=== PATIENT | male | born 1970 | race Caucasian/White ===

== ENCOUNTER 2016-11-28 12:44 | Observation (INO) | payer OTHER ==
[~2016-11-28] VITALS: Ht 190.5 cm; Wt 145.2 kg
[~2016-11-28 12:44] MED LIST: AMX500 PO; ASPI81TA28 PO; BENZ1CAP90 PO; FRS/40 PO; LPR25 PO; SPIR25TA PO; TAMS0.4C38 PO
[2016-11-28] MEDS ORDERED: METO25TA56 PO (13:38)
[2016-11-28] MEDS ORDERED: FUROSEMIDE 40 MG/4 ML VIAL IV STA (13:56)
[2016-11-28 14:17] LABS: BASO % 0.6 %; BASO ABS # 0.04 K/uL (0-0.2); COMPLETE YES; EOS % 3.1 %; HEMATOCRIT 45.4 % (42-52); IG% 0.2 %; LYMPH % 17.6 %; LYMPH ABS # 1.09 K/uL (1.2-3.4); MEAN CELL VOLUME 87.1 fL (80-100); MEAN CORPUSCULAR HEMOGLOBIN 30.1 pg (25-34); MEAN CORPUSCULAR HGB CONC 34.6 g/dl (32-36); MEAN PLATELET VOLUME 11.9 fL (7.4-10.4); MONO % 10.8 %; NEUT % 67.7 %; PLATELET COUNT 187 K/uL (130-400); RED BLOOD COUNT 5.21 M/uL (4.7-6.1); WHITE BLOOD COUNT 6.19 K/uL (4.8-10.8)
[2016-11-28 14:25] LABS: URINE APPEARANCE CLEAR (CLEAR); URINE BILIRUBIN NEG (NEG); URINE COLOR DK YELLOW; URINE NITRITE NEG (NEG); URINE SPECIFIC GRAVITY 1.026 (1.000-1.030); UROBILINOGEN POS (NEG); ZZUR CULT IF INDIC CLEAN CATCH NO
[2016-11-28 14:26] LABS: MANUAL MICROSCOPIC REQUIRED? NO; REVIEW REQ? NO
[2016-11-28 14:29] LABS: PARTIAL THROMBOPLASTIN RATIO 1.1; PROTHROMBIN TIME (PATIENT) 10.7 SECONDS (9.0-12.0)
--- NOTE | 2016-11-28 14:31 | DIAGNOSTIC IMAGING REPORT ---
CHEST ONE VIEW PORTABLE CLINICAL HISTORY: 46 years-old Male presenting with EVALUATE RESPIRATORY DISTRESS.DYSPNEA. TECHNIQUE: Portable upright AP view of the chest was obtained. COMPARISON: 04/06/2016. FINDINGS: Median sternotomy wires intact. Left-sided implanted cardiac defibrillator with lead to the right ventricular apex.. Cardiac silhouette enlargement as on prior exam. Prominence of the main pulmonary artery. No convincing evidence of a focal infiltrate. No large effusion or pneumothorax. Osseous structures and upper abdomen grossly normal. IMPRESSION: 1. Cardiomegaly. No mirza pulmonary edema. No convincing evidence of acute cardiopulmonary disease. Electronically signed by: Fareed Smart M.D. 11/28/2016 2:30 PM Dictated Date/Time: 11/28/2016 2:28 PM
[2016-11-28 14:35] LABS: BUN/CREATININE RATIO 14.7 (10-20); CALCIUM 8.9 mg/dl (8.5-10.1); CREATININE 1.3 mg/dl (0.60-1.40); POTASSIUM 4.1 mmol/L (3.5-5.1)
[2016-11-28 14:44] LABS: ALB/GLOB RATIO 1.1 (0.9-2)
--- NOTE | 2016-11-28 16:44 | EMERGENCY ROOM VISIT NOTE ---
History First contact with patient: 13:40 Chief Complaint: CARDIAC ASSESSMENT Stated Complaint: CHF History of Present Illness The patient is a 46 year old male, history of complete heart block, hypertrophic cardiomyopathy, history of myocardial infarction, status post ventricular pacer/ICD with EKG with paced rhythm, who presents to the Emergency Room with complaints of shortness of breath and fluid retention over the past 3 days. The patient is concerned that he is in CHF again. He was last admitted last March 2016 for similar symptoms. The patient usually takes Lasix 80 mg twice daily, and admits to increasing his Lasix dosing over the past 48 hours to 200 mg daily. This has not helped his peripheral edema. He is also restricted fluid intake for the past few days. He denies any current chest pain or pressure. The patient does report that he had right lower chest discomfort 3 days ago. He is concern for a blood clot, although he has never had a DVT/PE in the past. He does have a family history of DVTs. The patient currently rates his overall discomfort a 10 out of 10. Review of Systems HEENT: Denies dizziness, visual problems, hearing loss, tinnitus. Denies difficulty swallowing or oral lesions. PULMONARY: See history of present illness. CARDIOVASCULAR: See history of present illness. GASTROINTESTINAL: Denies diarrhea, constipation, nausea, vomiting, or abdominal pain. GENITOURINARY: Denies dysuria, frequency, urgency or nocturia. NEUROLOGIC: Denies history of epilepsy, CVA, TIA or chronic headaches. MUSCULOSKELETAL: Denies history of joint tenderness/swelling. SKIN: Denies rashes or lesions. PSYCHIATRIC: Denies history of depression or mental illness. ENDOCRINE: Denies history of diabetes or thyroid disorders. Past Medical/Surgical History Medical Problems: (1) Chest pain (2) Closed fracture of cervical spine (3) Dyslipidemia (4) Hypertrophic cardiomyopathy (5) Hypoxia (6) Implantation of internal cardiac defibrillator (7) Myocardial infarction (8) Pleuritis (9) s p insertion AICD (10) s/p appendectomy (11) Sleep apnea Family History Cancer 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 Heart disease Social History Smoking Status: Former Smoker Alcohol Use: occasionally Drug Use: none Marital Status: Housing Status: lives with family Occupation Status: employed Current/Historical Medications Scheduled Aspirin (Aspirin Ec), 81 MG PO DAILY Furosemide (Lasix), 80 MG PO BID Metoprolol Tartrate (Lopressor) (Lopressor), 12.5 MG PO BID Spironolactone (Aldactone), 25 MG PO DAILY Physical Exam Vital Signs Date Time Temp Pulse Resp B/P (MAP) Pulse Ox O2 Delivery O2 Flow Rate FiO2 11/28/16 14:32 96 Room Air 11/28/16 14:32 96 Room Air 11/28/16 14:31 73 11/28/16 13:00 37.0 78 24 136/84 97 Room Air Physical Exam CONSTITUTIONAL: Morbidly obese male, alert and oriented X 3 with positive affect. The patient does not appear in any acute respiratory distress. HEENT: Normocephalic, atraumatic. Pupils equal, round and reactive. Ears and nares are clear. No scleral icterus or conjunctival injection/pallor. NECK: Full active range of motion without discomfort. No obvious JVD noted, however this is very difficult because of body habitus. No cardiac bruits on auscultation. RESPIRATORY: Clear to auscultation bilaterally with no wheezing, crackles, rhonchi or stridor. CARDIOVASCULAR: Regular rate and rhythm with a grade 2 systolic ejection murmur. No obvious rubs or gallops. GASTROINTESTINAL: Bowel sounds present in all quadrants. Abdomen is protuberant but soft and nontender to palpation. No fluid wave or ballottement. MUSCULOSKELETAL: Full range of motion of all joints without discomfort. The patient has 2+ pretibial pitting edema bilaterally. No skin changes noted. INTEGUMENTARY: No rash or other significant dermatologic conditions noted. HEMATOLOGIC: No ecchymosis or petechiae. NEUROLOGIC: No focal neurologic deficits noted. Medical Decision & Procedures ER Provider Diagnostic Interpretation: My interpretation of an ECG shows a paced ventricular rhythm of 71 bpm. My interpretation of a portable chest x-ray does not show any consolidations or failure pattern. Radiologist report is as follows: CHEST ONE VIEW PORTABLE CLINICAL HISTORY: 46 years-old Male presenting with EVALUATE RESPIRATORY DISTRESS.DYSPNEA. TECHNIQUE: Portable upright AP view of the chest was obtained. COMPARISON: 04/06/2016. FINDINGS: Median sternotomy wires intact. Left-sided implanted cardiac defibrillator with lead to the right ventricular apex.. Cardiac silhouette enlargement as on prior exam. Prominence of the main pulmonary artery. No convincing evidence of a focal infiltrate. No large effusion or pneumothorax. Osseous structures and upper abdomen grossly normal. IMPRESSION: 1. Cardiomegaly. No mirza pulmonary edema. No convincing evidence of acute cardiopulmonary disease. Laboratory Results 11/28/16 14:05 Red Blood Count 5.21, Mean Corpuscular Volume 87.1, Mean Corpuscular Hemoglobin 30.1, Mean Corpuscular Hemoglobin Concent 34.6, Mean Platelet Volume 11.9, Neutrophils (%) (Auto) 67.7, Lymphocytes (%) (Auto) 17.6, Monocytes (%) (Auto) 10.8, Eosinophils (%) (Auto) 3.1, Basophils (%) (Auto) 0.6, Neutrophils # (Auto ) 4.19, Lymphocytes # (Auto) 1.09, Monocytes # (Auto) 0.67, Eosinophils # (Auto ) 0.19, Basophils # (Auto) 0.04 11/28/16 14:05 Test 11/28/16 13:15 11/28/16 14:05 Urine Color DK YELLOW Urine Appearance CLEAR (CLEAR) Urine pH 6.0 (4.5-7.5) Urine Specific [place] 1.026 (1.000-1.030) Urine Protein 1+ (NEG) Urine Glucose (UA) NEG (NEG) Urine Ketones TRACE (NEG) Urine Occult Blood TRACE (NEG) Urine Nitrite NEG (NEG) Urine Bilirubin NEG (NEG) Urine Urobilinogen POS (NEG) Urine Leukocyte Esterase NEG (NEG) Urine WBC (Auto) 1-5 /hpf (0-5) Urine RBC (Auto) 5-10 /hpf (0-4) Urine Hyaline Casts (Auto) 1-5 /lpf (0-5) Urine Epithelial Cells (Auto) 10-20 /lpf (0-5) Urine Bacteria (Auto) NEG (NEG) White Blood Count 6.19 K/uL (4.8-10.8) Red Blood Count 5.21 M/uL (4.7-6.1) Hemoglobin 15.7 g/dL (14.0-18.0) Hematocrit 45.4 % (42-52) Mean Corpuscular Volume 87.1 fL (80-100) Mean Corpuscular Hemoglobin 30.1 pg (25-34) Mean Corpuscular Hemoglobin Concent 34.6 g/dl (32-36) Platelet Count 187 K/uL (130-400) Mean Platelet Volume 11.9 fL (7.4-10.4) Neutrophils (%) (Auto) 67.7 % Lymphocytes (%) (Auto) 17.6 % Monocytes (%) (Auto) 10.8 % Eosinophils (%) (Auto) 3.1 % Basophils (%) (Auto) 0.6 % Neutrophils # (Auto) 4.19 K/uL (1.4-6.5) Lymphocytes # (Auto) 1.09 K/uL (1.2-3.4) Monocytes # (Auto) 0.67 K/uL (0.11-0.59) Eosinophils # (Auto) 0.19 K/uL (0-0.5) Basophils # (Auto) 0.04 K/uL (0-0.2) RDW Standard Deviation 46.2 fL (36.4-46.3) RDW Coefficient of Variation 14.5 % (11.5-14.5) Immature Granulocyte % (Auto) 0.2 % Immature Granulocyte # (Auto) 0.01 K/uL (0.00-0.02) Prothrombin Time 10.7 SECONDS (9.0-12.0) Prothromb Time International Ratio 1.0 (0.9-1.1) Activated Partial Thromboplast Time 28.5 SECONDS (21.0-31.0) Partial Thromboplastin Ratio 1.1 D-Dimer 310 ug/L FEU (0-500) Anion Gap 6.0 mmol/L (3-11) Est Creatinine Clear Calc Drug Dose 112.6 ml/min Estimated GFR () 76.4 Estimated GFR (Non- 65.9 BUN/Creatinine Ratio 14.7 (10-20) Calcium Level 8.9 mg/dl (8.5-10.1) Total Bilirubin 0.6 mg/dl (0.2-1) Aspartate Amino Transf (AST/SGOT) 42 U/L (15-37) Alanine Aminotransferase (ALT/SGPT) 48 U/L (12-78) Alkaline Phosphatase 69 U/L (45-117) Total Creatine Kinase 143 U/L (39-308) Troponin I 0.058 ng/ml (0-0.045) Pro-B-Type Natriuretic Peptide 1190 pg/ml (0-450) Total Protein 7.6 gm/dl (6.4-8.2) Albumin 4.0 gm/dl (3.4-5.0) Globulin 3.6 gm/dl (2.5-4.0) Albumin/Globulin Ratio 1.1 (0.9-2) The above labs were reviewed. BNP is elevated at 1190, and troponin is also elevated at 0.058. D-dimer is normal. Remaining labs were reviewed. Medications Administered Medications (Trade) Dose Ordered Sig/Ida Route Start Time Stop Time Status Last Admin Dose Admin Furosemide (Lasix Inj) 40 mg NOW STAT IV 11/28/16 13:56 11/28/16 14:01 DC 11/28/16 13:56 40 MG ED Course Patient history and physical exam were performed. Nurse's notes were reviewed. Vital signs were reviewed. The patient is normotensive and afebrile. O2 saturation is 97% on room air with a respiratory rate of 24. Pulse rate is normal. The patient gives a history and has peripheral edema, concerning for CHF. IV access was established, and labs were drawn. The patient was administered Lasix 40 mg IVP. An ECG showed a paced ventricular rhythm, and a portable chest x-ray does not show any obvious failure pattern. Cardiomegaly is noted. Review of labs shows a mildly elevated troponin and BNP. D-dimer are normal. The patient reported no relief of his back pain with Lasix administration, and was requesting additional medicine for pain. The case was discussed further with Dr. Ramos, ED attending physician who suggested consultation with the hospitalist service. I then spoke with the [facility] hospitalist service who came to the emergency department for further evaluation. Please see their dictation for further disposition and final treatment. Medical Decision Patient presents to the emergency department with complaint of fluid retention, right lower chest pain and shortness of breath for the past 3 days. The patient has had no relief of peripheral edema with higher doses of Lasix. 1 days workup, the patient does have an elevated troponin and BNP. These are chronically elevated for the patient. However, given the patient's chronic cardiac history, I do feel that cardiac reevaluation and serial enzymes are warranted. I do not suspect infectious etiology. Medication Reconcilliation Current Medication List: was personally reviewed by me Blood Pressure Screening Patient's blood pressure: Normal blood pressure Impression Primary Impression: Shortness of breath Additional Impressions: Right-sided chest pain History of CHF (congestive heart failure) History of heart disease Departure Information Referrals Isaías Hogan MD (PCP) Patient Instructions My [facility] Problem Qualifiers
[2016-11-28] MEDS ORDERED: ALUMINUM/MAGNESIUM/SIMETH (MAALOX MAX) 30 ML UDC PO PRN (17:15)
[2016-11-28] MEDS ORDERED: ONDANSETRON INJ 2 MG/ML 2 ML VIAL IV PRN (17:15)
[2016-11-28] MEDS ORDERED: ACETAMINOPHEN 325 MG TAB PO PRN (17:15)
[2016-11-28] MEDS ORDERED: MAGNESIUM HYDROXIDE SUSP 30 ML UDC PO PRN (17:15)
--- NOTE | 2016-11-28 17:39 | History and Physical ---
History & Physical Date & Time of Service: Nov 28, 2016 at 17:19 Chief Complaint: CHF Primary Care Physician: Alfred Davis M.D. History of Present Illness Source: patient, clinic records, hospital records Patient is a pleasant 46 y/o male, with PMHx of complete heart block, hypertrophic cardiomyopathy, h/o NH, s/p ICD/pacemaker, MEENU, and HTN, who presented to the ED because of persistent SOB at rest and with exertion over the past few days. Patient normally takes 80 mg Lasix BID, but increased his Lasix to 100 mg BID for the last three days. He admits to lower extremity edema , but states it has significantly improvement since increasing Lasix. Per patient, goal weight is 195-302; he is currently ~330. Patient also admits to lower lumbar pain. He admits to discomfort with other CHF exacerbations. He denies any injuries. He denies radicular symptoms or bowel/bladder incontinence. Patient denies any fever, chills, sweats, lightheadedness, dizziness, vision changes, CP, palpitations, wheezing, cough, abdominal pain, nausea, vomiting, diarrhea, urinary symptoms, melena, numbness/tingling, weakness, anxiety/depression, active bleeding, or new skin discoloration/ changes. Past Medical/Surgical History Medical Problems: HTN Hypertrophic cardiomyopathy Myocardial infarction Complete heart block MEENU Surgical history: Appendectomy Open heart surgery s/p ICD and pacemaker Family History Cancer 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 Heart disease Social History Smoking Status: Former Smoker Alcohol Use: occasionally Drug Use: none Marital Status: Housing status: lives with family Occupational Status: employed Immunizations History of Influenza Vaccine: Yes History of Tetanus Vaccine?: Yes History of Pneumococcal: Yes History of Hepatitis B Vaccine: No Multi-Drug Resistant Organisms History of MDRO: No Allergies Coded Allergies: Erythromycin (Unverified Allergy, Mild, UNSURE, 11/28/16) Home Medications Scheduled Aspirin (Aspirin Ec), 81 MG PO DAILY Furosemide (Lasix), 80 MG PO BID Metoprolol Tartrate (Lopressor) (Lopressor), 12.5 MG PO BID Spironolactone (Aldactone), 25 MG PO DAILY Physical Exam Vital Signs Date Time Temp Pulse Resp B/P (MAP) Pulse Ox O2 Delivery O2 Flow Rate FiO2 11/28/16 14:32 96 Room Air 11/28/16 14:32 96 Room Air 11/28/16 14:31 73 11/28/16 13:00 37.0 78 24 136/84 97 Room Air General Appearance: no apparent distress, + obese Head: normocephalic, atraumatic Eyes: normal inspection, PERRL ENT: hearing grossly normal Respiratory/Chest: lungs clear, no respiratory distress, no accessory muscle use, + pertinent finding (open heart scar noted to central chest- healed ) Cardiovascular: regular rate, rhythm Abdomen/GI: normal bowel sounds, non tender, no organomegaly Back: normal inspection, no CVA tenderness, no muscle spasm, normal range of motion Extremities/Musculoskelatal: no calf tenderness, + swelling (+1 pitting edema of bilateral lower extremities ) Neurologic/Psych: alert, normal mood/affect, oriented x 3 Skin: normal color, warm/dry, no rash Diagnostics Laboratory Results Results Past 24 Hours Test 11/28/16 13:15 11/28/16 14:05 Range/Units Urine Color DK YELLOW Urine Appearance CLEAR CLEAR Urine pH 6.0 4.5-7.5 Urine Specific [place] 1.026 1.000-1.030 Urine Protein 1+ NEG Urine Glucose (UA) NEG NEG Urine Ketones TRACE NEG Urine Occult Blood TRACE NEG Urine Nitrite NEG NEG Urine Bilirubin NEG NEG Urine Urobilinogen POS NEG Urine Leukocyte Esterase NEG NEG Urine WBC (Auto) 1-5 0-5 /hpf Urine RBC (Auto) 5-10 0-4 /hpf Urine Hyaline Casts (Auto) 1-5 0-5 /lpf Urine Epithelial Cells (Auto) 10-20 0-5 /lpf Urine Bacteria (Auto) NEG NEG White Blood Count 6.19 4.8-10.8 K/uL Red Blood Count 5.21 4.7-6.1 M/uL Hemoglobin 15.7 14.0-18.0 g/dL Hematocrit 45.4 42-52 % Mean Corpuscular Volume 87.1 80-100 fL Mean Corpuscular Hemoglobin 30.1 25-34 pg Mean Corpuscular Hemoglobin Concent 34.6 32-36 g/dl Platelet Count 187 130-400 K/uL Mean Platelet Volume 11.9 7.4-10.4 fL Neutrophils (%) (Auto) 67.7 % Lymphocytes (%) (Auto) 17.6 % Monocytes (%) (Auto) 10.8 % Eosinophils (%) (Auto) 3.1 % Basophils (%) (Auto) 0.6 % Neutrophils # (Auto) 4.19 1.4-6.5 K/uL Lymphocytes # (Auto) 1.09 1.2-3.4 K/uL Monocytes # (Auto) 0.67 0.11-0.59 K/uL Eosinophils # (Auto) 0.19 0-0.5 K/uL Basophils # (Auto) 0.04 0-0.2 K/uL RDW Standard Deviation 46.2 36.4-46.3 fL RDW Coefficient of Variation 14.5 11.5-14.5 % Immature Granulocyte % (Auto) 0.2 % Immature Granulocyte # (Auto) 0.01 0.00-0.02 K/uL Prothrombin Time 10.7 9.0-12.0 SECONDS Prothromb Time International Ratio 1.0 0.9-1.1 Activated Partial Thromboplast Time 28.5 21.0-31.0 SECONDS Partial Thromboplastin Ratio 1.1 D-Dimer 310 0-500 ug/L FEU Sodium Level 143 136-145 mmol/L Potassium Level 4.1 3.5-5.1 mmol/L Chloride Level 109 98-107 mmol/L Carbon Dioxide Level 28 21-32 mmol/L Anion Gap 6.0 3-11 mmol/L Blood Urea Nitrogen 19 7-18 mg/dl Creatinine 1.30 0.60-1.40 mg/dl Est Creatinine Clear Calc Drug Dose 112.6 ml/min Estimated GFR () 76.4 Estimated GFR (Non- 65.9 BUN/Creatinine Ratio 14.7 10-20 Random Glucose 103 70-99 mg/dl Calcium Level 8.9 8.5-10.1 mg/dl Total Bilirubin 0.6 0.2-1 mg/dl Aspartate Amino Transf (AST/SGOT) 42 15-37 U/L Alanine Aminotransferase (ALT/SGPT) 48 12-78 U/L Alkaline Phosphatase 69 45-117 U/L Total Creatine Kinase 143 39-308 U/L Troponin I 0.058 0-0.045 ng/ml Pro-B-Type Natriuretic Peptide 1190 0-450 pg/ml Total Protein 7.6 6.4-8.2 gm/dl Albumin 4.0 3.4-5.0 gm/dl Globulin 3.6 2.5-4.0 gm/dl Albumin/Globulin Ratio 1.1 0.9-2 Diagnostic Radiology CHEST ONE VIEW PORTABLE CLINICAL HISTORY: 46 years-old Male presenting with EVALUATE RESPIRATORY DISTRESS.DYSPNEA. TECHNIQUE: Portable upright AP view of the chest was obtained. COMPARISON: 04/06/2016. FINDINGS: Median sternotomy wires intact. Left-sided implanted cardiac defibrillator with lead to the right ventricular apex.. Cardiac silhouette enlargement as on prior exam. Prominence of the main pulmonary artery. No convincing evidence of a focal infiltrate. No large effusion or pneumothorax. Osseous structures and upper abdomen grossly normal. IMPRESSION: 1. Cardiomegaly. No mirza pulmonary edema. No convincing evidence of acute cardiopulmonary disease. Electronically signed by: Fareed Smart M.D. 11/28/2016 2:30 PM Dictated Date/Time: 11/28/2016 2:28 PM The status of this report is Signed. Draft = Not yet reviewed or approved by Radiologist. Signed = Reviewed and approved by Radiologist. <AttendingPhy></AttendingPhy> <FamilyPhy>Isaías Hogan MD</FamilyPhy > <PrimaryPhy>Isaías Hogan MD</PrimaryPhy> <UnitNumber>[id number]</ UnitNumber> < EKG JULISSA MARIN ID:[id number] 28-NOV-2016 13:16:09 [facility] Sinus rhythm with Ventricular-paced rhythm Abnormal ECG When compared with ECG of 06-APR-2016 07:32, No significant change Confirmed by GRETTA JONAS ([id number]) on 11/28/2016 4:25:29 PM 25mm/s 10mm/mV 150Hz 8.0 SP2 12SL 241 HD IVAN: 12 Referred by: ER Confirmed By: GRETTA Palacios. rate 71 BPM DE interval * ms QRS duration 224 ms QT/QTc 522/567 ms P-R-T axes -5 -78 96 1970 (46 yr) Male 1lb Room: Loc:15 Dietetic Technician: SAMMI Westbrook ind: Impression Assessment and Plan Patient is a pleasant 46 y/o male, with PMHx of complete heart block, hypertrophic cardiomyopathy, h/o NH, s/p ICD/pacemaker, MEENU, and HTN, who presented to the ED because of persistent SOB at rest and with exertion over the past few days. Acute on chronic CHF exacerbation, hypertrophic cardiomyopathy, h/o NH, s/p ICD/ pacemaker- follows w/ Dr. Hogan: - Admit to tele for cardiac monitoring - Trend cardiac enzymes- initial trop 0.058- chronically elevated - O2 protocol - IV Lasix 40 mg x1 given in ED; hold PO, start IV Lasix 40 mg BID and await cardiology input - CXR- no acute cardiopulmonary findings - No acute EKG changes - D-dimer- negative - Continue Aldactone 25 mg daily, Lopressor 12.5 mg BID, ASA 81 mg daily - Consult cardiology appreciate recommendations Lumbar pain/CVA tenderness: - Percocet PRN - Obtain renal US to r/o stone/obstruction/hydronephrosis - UA MEENU: CPAP DVT Prophylaxis: Lovenox Code Status: LEVEL I, FULL Dispo: From home- no discharge needs anticipated I personally interviewed and examined the patient I discussed the above plan with Miss Unique Angela I agree with her Hx and PE 46 years old man with PMHx of HOCM and diastolic failure, MEENU on CPAP, morbid obesity and complete heart block s/p AICD presented to ED with gradual worsening SOB and leg swelling despite of self increasing his lasix to 200mg daily . ROS/PMHx: as HPI FHx/SHx/labs/meds reviewed as needed PE: morbid obese, not in acute distress LUNGs: normal exam, no wheezing/R Heart: s1/s2 normal, no G/R/ , positive soft systolic M ABD: soft, ND, N tender Ext: B/L LE no edema or swelling Neuro: pleasant,AAOX3, EOMI, moves all ext, CN 2-12 intact Assessment: Acute Diastolic CHF exacerbation HOCM MEENU on CPAP morbid obesity complete heart block s/p AICD Plan: admit to telemetry lasix IV consult verifier operator I/O Start CPAP at 17MMHg Echo 03/2016: * -- Conclusions -- * LVEF 55%. * Severe anteroseptal and apical hypokinesis. * There is severe asymmetric septal left ventricular hypertrophy. * Compared to study 01/17/2016, the septal hypertrophy appears more severe. Level of Care Telemetry Resuscitation Status FULL RESUSCITATION VTE Prophylaxis VTE Risk Assessment Done? Y/N: Yes Risk Level: Moderate Given or contraindicated: Enoxaparin (Lovenox)SQ, T.E.D. Stockings, SCD's
[2016-11-28] MEDS ORDERED: POLYETHYLENE (MIRALAX) 17 GM PACK PO PRN (18:15)
--- NOTE | 2016-11-28 18:26 | DIAGNOSTIC IMAGING REPORT ---
(RENAL)RETROPERITON COMP CLINICAL HISTORY: 46 years-old Male presenting with bilateral CVA tenderness . TECHNIQUE: Real-time grayscale and limited color Doppler ultrasound imaging of the kidneys and bladder was performed. COMPARISON: None. FINDINGS: Right kidney: Normal echogenicity. Right kidney measures 13.4 cm. No hydronephrosis. No convincing evidence of calculus or mass. Normal perfusion. Left kidney: Normal echogenicity. Left kidney measures 14.0 cm. No hydronephrosis. No convincing evidence of calculus or mass. Normal perfusion. Bladder: No bladder wall thickening. Bilateral ureteral jets present. Other: None. IMPRESSION: 1. Normal renal ultrasound. No obstruction. Electronically signed by: Fareed Smart M.D. 11/28/2016 6:25 PM Dictated Date/Time: 11/28/2016 6:23 PM
[2016-11-28 18:36] VITALS: BP 140/85; PULSE 74; TEMP 36.8; O2SAT 96; Ht 190.5 cm; Wt 145.2 kg
[2016-11-28] MEDS ORDERED: IV FLUIDS COMPLETED PRN (18:45)
[2016-11-28] MEDS: OXYCODONE/ACETAMINOPHEN 5-325 TAB PO PRN (19:34)
[2016-11-28 20:00] VITALS: BP 129/81; PULSE 70; TEMP 36.5; O2SAT 95
[2016-11-28] MEDS: ENOXAPARIN 40 MG/0.4 ML SYR SC SCH (20:48)
[2016-11-28] MEDS: METOPROLOL TARTRATE 25 MG TAB PO SCH (20:48)
[2016-11-28] MEDS: FUROSEMIDE INJ 40 MG in SYRINGE 0 ML IV SCH (20:48)
[2016-11-28 23:57] VITALS: BP 117/86; PULSE 75; TEMP 36.6; O2SAT 98
[2016-11-29] VITALS (8 sets, daily range): BP systolic 97–147; BP diastolic 63–93; PULSE 69–73; TEMP 36.6–36.9; O2SAT 94–96
[2016-11-29] MEDS: OXYCODONE/ACETAMINOPHEN 5-325 TAB PO PRN ×4 (01:01→19:23)
--- NOTE | 2016-11-29 07:29 | Cardiology Consultation ---
Cardiology Consultation Date of Consultation: Nov 29, 2016. Requesting Physician: Dr. Kathleen Pittman Attending Physician: Dr. Kathleen Pittman Reason for Consultation: CHF Pt evaluation today including: conversation w/ patient, physical exam, chart review, lab review, review of studies, review of inpatient medication list History of Present Illness Mr. Connolly is a 46-year-old male with a history significant for hypertrophic cardiomyopathy s/p myomectomy, mitral regurgitation secondary to JASON of mitral valve s/p mitral valve repair, single-chamber ICD for primary prevention, dyslipidemia, hypertension, and sleep apnea (not currently on CPAP). He has had the following studies/procedures: 1. Cardiac catheterization 1999 in 2011 without significant CAD. 2. ICD 2006 at [facility] [place]: [employer] single chamber ICD for primary prevention. 3. Echo 06/29/2015: Normal LV systolic function. EF 55-60%. Inferior base appears hypokinetic to akinetic. Severe asymmetric hypertrophy of anterior septum and base to mid septum, measuring up to 3.3 cm. Mild left atrial dilation. Jason of chordal apparatus. Maximum LVOT gradient at rest [address] chest 06/29/2015: Severe asymmetric hypertrophy of interventricular septum measuring up to 4.1 cm. 5. Echo 06/30/2015: Limited study. Peak gradient 6.9 mmHg, increasing to 10.5 with Valsalva. 6. Cardiac catheterization 06/30/2015: No significant CAD. Normal PCWP (6). No pulmonary hypertension; 10/6 with a mean of 7. LVEDP 22, moderately elevated. LV intracavitary gradient was 5-8mmHg within the mid to distal/apical LV. This was not present near the LVOT. Post PVC beat gradient increased to 23 mmHg. EF 52%. 8. Septal myectomy and mitral valve repair with an 8 mm Danitza stitch on 2015 at [facility] [place] with Dr. Kelly. 9. Echo 01/17/2016: Normal to reduced LV size with hyperdynamic systolic function, EF 70%. Severe asymmetric hypertrophy of the septum. The basal septum now absent (s/p myomectomy). Mildly dilated left atrium. Maximum LVOT gradient at rest is 25 mmHg. He was last seen in the office on 03/02/2016. He then canceled are no showed for the next 3 scheduled appointments. In July of 2016, several phone calls were made to try to schedule an appointment however he had been out of town and was unable to make any appointments but planned on doing so when he returned home. He returned home from [place] approximately 1 week ago. He states that he felt well when he returns but soon developed shortness of breath, edema, and weight gain. He noticed orthopnea, PND even while on CPAP, and a nonproductive cough. He also reports dyspnea with exertion. He has not been weighing himself on a daily basis but the last time he weigh himself he was approximately 305 lb and this week he was in the 320s. He had been taking Lasix 80 mg twice daily and states that he did not missed any doses. He took an additional 40 mg twice daily for total of 120 mg twice daily for 2 days. He did not improve symptomatically but he does believe that the symptoms leveled off and stop progressively worsening. Because he did not feel any better however, he came to the hospital for further evaluation. While here, he was placed on Lasix 40 mg twice daily with an additional 40 mg once intravenously and feels much better, but not yet back to baseline. Despite traveling, he states that he has been compliant with a low-sodium diet. He denies chest pain, syncope, near-syncope, palpitations, or bleeding such as melena, hematochezia, or hematuria. He has not been exercising but is much more active following his septal myectomy than he was prior and overall felt much better. Review of systems: As above in review of systems otherwise negative/ unremarkable. Past Medical/Surgical History 1. Chest pain (R07.9) 2. Complete heart block (I44.2) 3. Dyslipidemia (E78.5) 4. Dyspnea on exertion (R06.09) 5. H/O mitral valve repair (Z98.890) 6. Hypertension (I10) 7. ICD (implantable cardioverter-defibrillator), single, in situ (Z95.810) 8. Lightheadedness (R42) 9. Hpertrophic cardiomyopathy with obstruction 10. Sleep apnea in adult (G47.33) 11. Septal myectomy Family History Cancer 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 Heart disease No known premature CAD. No known hypertrophic cardiomyopathy or sudden cardiac . His father was reportedly murdered in his 20s. Social History Former smoker. Rare alcohol. No drugs. . 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 Two biologic children, son (Timoteo) and daughter, along with a stepson. He is unaccompanied. Review of Systems Respiratory: + cough All Other Systems: Reviewed and Negative Allergies Coded Allergies: Erythromycin (Unverified Allergy, Mild, UNSURE, 11/28/16) Medications Current Inpatient Medications Medications (Trade) Dose Ordered Sig/Ida Route Start Time Stop Time Status Last Admin Dose Admin Enoxaparin Sodium (Lovenox Inj) 40 mg HS SC 11/28/16 21:00 12/28/16 20:59 11/28/16 20:48 40 MG Acetaminophen (Tylenol Tab) 650 mg Q4H PRN PO 11/28/16 17:15 12/28/16 17:14 Al Hydrox/Mg Hydrox/Simethicone (Maalox Max Susp) 15 ml Q4H PRN PO 11/28/16 17:15 12/28/16 17:14 Magnesium Hydroxide (Milk Of Magnesia Susp) 30 ml Q12H PRN PO 11/28/16 17:15 12/28/16 17:14 Ondansetron HCl (Zofran Inj) 4 mg Q6H PRN IV 11/28/16 17:15 12/28/16 17:14 Aspirin (Ecotrin Tab) 81 mg QAM PO 11/29/16 09:00 12/29/16 08:59 Polyethylene (Miralax Powder Packet) 17 gm DAILY PRN PO 11/28/16 18:15 12/28/16 18:14 Metoprolol Tartrate (Lopressor Tab) 12.5 mg BID PO 11/28/16 21:00 12/28/16 20:59 11/28/16 20:48 12.5 MG Spironolactone (Aldactone Tab) 25 mg DAILY PO 11/29/16 09:00 12/29/16 08:59 Oxycodone/ Acetaminophen (Percocet 5-325mg Tab) 1 tab Q4H PRN PO 11/28/16 17:30 12/12/16 17:29 11/29/16 01:01 1 TAB Furosemide 40 mg/ Syringe 4 ml @ 4 mls/min BID IV 11/28/16 21:00 12/28/16 20:59 11/28/16 20:48 4 MLS/MIN Miscellaneous (Iv Fluids Completed) 1 ea PRN PRN N/A 11/28/16 18:45 11/28/17 18:44 Physical Exam Vital Signs Past 12 Hours Date Time Temp Pulse Resp B/P (MAP) Pulse Ox O2 Delivery O2 Flow Rate FiO2 11/29/16 04:19 36.7 70 18 97/63 (74) 95 CPAP 11/29/16 04:00 95 Room Air 11/29/16 00:00 95 Room Air 11/28/16 23:57 36.6 75 18 117/86 (96) 98 BiPAP 11/28/16 20:00 36.5 70 20 129/81 (97) 95 Room Air 11/28/16 20:00 95 Room Air Gen.: No acute distress. Alert and oriented. HEENT: Anicteric sclera. Neck: There appears to be mild JVD but difficult exam due to thick neck. No bruits. Normal carotid upstrokes bilaterally. Cardiac: PMI was non palpable. No ventricular heave. Regular rate and rhythm. Normal S1-S2. 1/6 systolic murmur. No rubs or gallops. Pulmonary: Clear to auscultation bilaterally without wheezes, rales, or rhonchi. Abdomen: Soft, nontender, nondistended, with normoactive bowel sounds. No bruits noted. Extremities: 2+ radial pulses bilaterally. 2+ posterior tibialis pulses bilaterally. No pitting edema or cyanosis. Psychiatric: Affect appears appropriate. Chest: Sternotomy scar noted. Data Laboratory Results: Last 24 Hours Test 11/28/16 13:15 11/28/16 14:05 11/28/16 21:28 11/29/16 04:44 Urine Color DK YELLOW Urine Appearance CLEAR Urine pH 6.0 Urine Specific Fidelity 1.026 Urine Protein 1+ Urine Glucose (UA) NEG Urine Ketones TRACE Urine Occult Blood TRACE Urine Nitrite NEG Urine Bilirubin NEG Urine Urobilinogen POS Urine Leukocyte Esterase NEG Urine WBC (Auto) 1-5 /hpf Urine RBC (Auto) 5-10 /hpf Urine Hyaline Casts (Auto) 1-5 /lpf Urine Epithelial Cells (Auto) 10-20 /lpf Urine Bacteria (Auto) NEG White Blood Count 6.19 K/uL Red Blood Count 5.21 M/uL Hemoglobin 15.7 g/dL Hematocrit 45.4 % Mean Corpuscular Volume 87.1 fL Mean Corpuscular Hemoglobin 30.1 pg Mean Corpuscular Hemoglobin Concent 34.6 g/dl Platelet Count 187 K/uL Mean Platelet Volume 11.9 fL Neutrophils (%) (Auto) 67.7 % Lymphocytes (%) (Auto) 17.6 % Monocytes (%) (Auto) 10.8 % Eosinophils (%) (Auto) 3.1 % Basophils (%) (Auto) 0.6 % Neutrophils # (Auto) 4.19 K/uL Lymphocytes # (Auto) 1.09 K/uL Monocytes # (Auto) 0.67 K/uL Eosinophils # (Auto) 0.19 K/uL Basophils # (Auto) 0.04 K/uL RDW Standard Deviation 46.2 fL RDW Coefficient of Variation 14.5 % Immature Granulocyte % (Auto) 0.2 % Immature Granulocyte # (Auto) 0.01 K/uL Prothrombin Time 10.7 SECONDS Prothromb Time International Ratio 1.0 Activated Partial Thromboplast Time 28.5 SECONDS Partial Thromboplastin Ratio 1.1 D-Dimer 310 ug/L FEU Sodium Level 143 mmol/L Potassium Level 4.1 mmol/L Chloride Level 109 mmol/L Carbon Dioxide Level 28 mmol/L Anion Gap 6.0 mmol/L Blood Urea Nitrogen 19 mg/dl Creatinine 1.30 mg/dl Est Creatinine Clear Calc Drug Dose 112.6 ml/min Estimated GFR () 76.4 Estimated GFR (Non- 65.9 BUN/Creatinine Ratio 14.7 Random Glucose 103 mg/dl Calcium Level 8.9 mg/dl Total Bilirubin 0.6 mg/dl Aspartate Amino Transf (AST/SGOT) 42 U/L Alanine Aminotransferase (ALT/SGPT) 48 U/L Alkaline Phosphatase 69 U/L Total Creatine Kinase 143 U/L Troponin I 0.058 ng/ml 0.080 ng/ml Pro-B-Type Natriuretic Peptide 1190 pg/ml Total Protein 7.6 gm/dl Albumin 4.0 gm/dl Globulin 3.6 gm/dl Albumin/Globulin Ratio 1.1 Creatine Kinase MB 3.4 ng/ml Creatine Kinase MB Ratio Test 11/29/16 06:00 Creatine Kinase MB Ratio ECG personally reviewed. ECG 11/28/2016: Atrial sensed ventricular paced. Sinus rhythm. Wide QRS. 71 bpm. Telemetry personally reviewed. Ventricular triplet, otherwise ventricular paced. Chest x-ray personally reviewed. No obvious infiltrate. Radiology has interpreted this as no mirza pulmonary edema. No convincing evidence of acute cardiopulmonary disease. Cardiomegaly. Assessment & Plan ASSESSMENT/PLAN: 1. Acute on chronic diastolic CHF: Difficult to assess volume status currently but apparently had much more edema upon presentation. Continue intravenous diuretic as he is feeling better but not yet back to baseline. Echocardiogram ordered. Low-sodium diet. Strict I & Os. Daily weights recommended. We discussed importance of compliance with medical follow-up as he has not been following up in the outpatient setting. 2. Hyper trophic cardiomyopathy status post myectomy: Repeat echocardiogram as noted above. Overall, has done much better following surgery. 3. Mitral valve repair: Repeat echocardiogram as above. 4. Complete heart block: Patient developed complete heart block following septal myectomy. He is now pacemaker dependent. He does have a wide QRS complex and is pacing quite regularly since admitted. Echocardiogram to evaluate LV systolic function. If LV systolic function is significantly reduced , would consider biventricular device. 5. Single-chamber ICD: Followed by Dr. Medrano. He has not been evaluated for some time. Will touch base with Dr. Medrano to determined timing of interrogation. 6. Disposition: Cardiology will continue to follow. Highly complex medical issues. Greater than 40 minutes spent, with greater than 50% of that time spent counseling patient and also coordinating care.
[2016-11-29] MEDS: FUROSEMIDE INJ 40 MG in SYRINGE 0 ML IV SCH (07:40)
[2016-11-29] MEDS: METOPROLOL TARTRATE 25 MG TAB PO SCH ×2 (07:41→21:22)
[2016-11-29] MEDS: ASPIRIN 81 MG ECTAB PO SCH (07:41)
[2016-11-29] MEDS: SPIRONOLACTONE 25 MG TAB PO SCH (07:41)
[2016-11-29 08:03] LABS: BASO % 0.7 %; BASO ABS # 0.04 K/uL (0-0.2); COMPLETE YES; EOS % 4.7 %; HEMATOCRIT 48.3 % (42-52); IG% 0.2 %; LYMPH % 28.8 %; MEAN CELL VOLUME 88.8 fL (80-100); MEAN CORPUSCULAR HEMOGLOBIN 30.3 pg (25-34); MEAN CORPUSCULAR HGB CONC 34.2 g/dl (32-36); MEAN PLATELET VOLUME 11.9 fL (7.4-10.4); NEUT % 54.6 %; PLATELET COUNT 188 K/uL (130-400); RED BLOOD COUNT 5.44 M/uL (4.7-6.1)
[2016-11-29 08:31] LABS: ALT/SGPT 47 U/L (12-78); AST/SGOT 40 U/L (15-37); BLOOD UREA NITROGEN 22 mg/dl (7-18); BUN/CREATININE RATIO 16.7 (10-20); CALCIUM 9.7 mg/dl (8.5-10.1); CARBON DIOXIDE 33 mmol/L (21-32); CHLORIDE 103 mmol/L (98-107); GLUCOSE 104 mg/dl (70-99); MAGNESIUM 2.3 mg/dl (1.8-2.4); POTASSIUM 4.3 mmol/L (3.5-5.1); SODIUM 142 mmol/L (136-145)
[2016-11-29 08:38] LABS: ALB/GLOB RATIO 1.1 (0.9-2); ALKALINE PHOSPHATASE 66 U/L (45-117); PHOSPHORUS 3.8 mg/dl (2.5-4.9)
[2016-11-29 08:58] LABS: ESTIMATED AVERAGE GLUCOSE 117 mg/dl; HA1C FLAG Normal (Normal)
[2016-11-29] MEDS ORDERED: PERFLUTREN LIPID MICROSPHERE (DEFINITY) IV ONE (10:15)
--- NOTE | 2016-11-29 10:41 | ECHOCARDIOGRAM REPORT ---
*NOTICE TO RECEIVING LIBERTARIAN AGENCY This information is strictly Confidential and protected under [place] law. [place] law prohibits you from making any further disclosure of this information unless further disclosure is expressly permitted by the written consent of the person to whom it pertains or is authorized by law. A general authorization for the release of medical or other information is not sufficient for this purpose. Hospital accepts no responsibility if the information is made available to any other person, INCLUDING THE PATIENT. Interpretation Summary * Name: JULISSA MARIN Study Date: 11/29/2016 08:41 AM BP: 147/93 mmHg * Patient Location: C.2T\S\S237\S\1 HR: 76 * : 1970 (M/d/yyyy) Gender: Male Height: 75 in * Age: 46 yrs Ethnicity: CA Weight: 320 lb * Ordering Physician: Isaías Hogan * Referring Physician: Self, Referred * Performed By: Gloria Garcia RCS * * Reason For Study: CHF * BSA: 2.7 m2 * -- Conclusions -- * 1. Normal left ventricular size and systolic function. EF 60-65%. No regional wall motion abnormalities. Severe asymmetric hypertrophy of the anteroseptum and septal valderrama, up to 3.1 cm. Type 1 diastolic dysfunction. Tissue Doppler suggests elevated left atrial pressures. * 2. No dynamic LVOT obstruction suggested with spectral Doppler. * 3. Mild aortic regurgitation. * 4. Technically difficult study, enhanced with IV Definity. * 5. No significant change from prior study on 03/18/2016. Procedure Details * Left Ventricle Normal left ventricular size and systolic function. EF 60-65%. No regional wall motion abnormalities. Severe asymmetric hypertrophy of the anteroseptum and septal valderrama, up to 3.1 cm. Type 1 diastolic dysfunction. Tissue Doppler suggests elevated left atrial pressures. * Right Ventricle The right ventricle is not well visualized. The right ventricle is grossly normal size. The right ventricular systolic function is normal as assessed by tricuspid annular plane systolic excursion (TAPSE) (normal >1.5 cm). * Atria Borderline left atrial enlargement. Right atrial size is normal. * Mitral Valve The mitral valve is grossly normal. There is no mitral valve stenosis. There is trace mitral regurgitation. Systolic anterior motion of mitral chordal structures, without evidence of obstruction. * Tricuspid Valve The tricuspid valve is not well visualized, but is grossly normal. There is no tricuspid stenosis. Significant tricuspid regurgitation is absent. * Aortic Valve The aortic valve is trileaflet. No hemodynamically significant valvular aortic stenosis. Mild aortic regurgitation. * Pulmonic Valve The pulmonary valve is inadequately visualized, but the Doppler data is adequate for interpretation. There is no pulmonic valvular stenosis. Trace pulmonic valvular regurgitation. * Great Vessels The aortic root is normal size. * Pericardium/Pleural There is no pericardial effusion. * Great Vessels IVC not visualized. * * MMode 2D Measurements and Calculations * IVSd 3.1 cm * * LVIDd 4.4 cm * LVIDs 3.1 cm * LVPWd 1.1 cm * * IVS/LVPW 2.8 * FS 29.5 % * EDV(Teich) 88.9 ml * ESV(Teich) 38.6 ml * EF(Teich) 56.6 % * * EDV(cubed) 86.7 ml * ESV(cubed) 30.4 ml * EF(cubed) 64.9 % * * LV mass(C)d 470.3 grams * LV mass(C)dI 175.5 grams/m\S\2 * * SV(Teich) 50.3 ml * SI(Teich) 18.8 ml/m\S\2 * SV(cubed) 56.3 ml * SI(cubed) 21.0 ml/m\S\2 * * Ao root diam 3.5 cm * Ao root area 9.5 cm\S\2 * * LVOT diam 2.3 cm * LVOT area 4.2 cm\S\2 * * LVAd ap4 39.5 cm\S\2 * LVLd ap4 10.0 cm * EDV(MOD-sp4) 125.5 ml * EDV(sp4-el) 132.1 ml * LVAs ap4 22.2 cm\S\2 * LVLs ap4 9.1 cm * ESV(MOD-sp4) 43.9 ml * ESV(sp4-el) 45.8 ml * EF(MOD-sp4) 65.0 % * EF(sp4-el) 65.3 % * * LVAd ap2 39.2 cm\S\2 * LVLd ap2 10.5 cm * EDV(MOD-sp2) 117.3 ml * EDV(sp2-el) 124.8 ml * LVAs ap2 24.2 cm\S\2 * LVLs ap2 9.2 cm * ESV(MOD-sp2) 51.5 ml * ESV(sp2-el) 54.1 ml * EF(MOD-sp2) 56.1 % * EF(sp2-el) 56.6 % * * LVLd %diff 4.9 % * EDV(MOD-bp) 125.1 ml * LVLs %diff -2.95 % * ESV(MOD-bp) 48.1 ml * EF(MOD-bp) 61.6 % * * SV(MOD-sp4) 81.6 ml * SI(MOD-sp4) 30.5 ml/m\S\2 * * SV(MOD-sp2) 65.8 ml * SI(MOD-sp2) 24.5 ml/m\S\2 * * SV(MOD-bp) 77.0 ml * SI(MOD-bp) 28.7 ml/m\S\2 * * SV(sp4-el) 86.3 ml * SI(sp4-el) 32.2 ml/m\S\2 * * SV(sp2-el) 70.7 ml * SI(sp2-el) 26.4 ml/m\S\2 * * * Doppler Measurements and Calculations * MV E max calos 114.7 cm/sec * MV A max calos 151.4 cm/sec * * MV E/A 0.76 * * MV dec time 0.12 sec * * Ao V2 max 165.0 cm/sec * Ao max PG 10.9 mmHg * Ao max PG (full) 4.2 mmHg * OLIVER(V,A) 3.3 cm\S\2 * OLIVER(V,D) 3.3 cm\S\2 * * AI max calos 407.7 cm/sec * AI max PG 66.5 mmHg * AI dec slope 205.3 cm/sec\S\2 * AI P1/2t 581.5 msec * * LV V1 max PG 6.7 mmHg * * LV V1 max 129.3 cm/sec * * PA V2 max 87.1 cm/sec * PA max PG 3.0 mmHg * *
--- NOTE | 2016-11-29 12:53 | Hospitalist Progress Note ---
Hospitalist Progress Note Date of Service Nov 29, 2016. (Chelita Adler ., HARSHAL-C) Subjective Pt evaluation today including: conversation w/ patient, physical exam, chart review, lab review, review of studies, review of inpatient medication list Pain: 4/10 sharp lower back pain PO Intake: Tolerating PO diet Voiding: no voiding problems Patient reports feeling better overall. He states that his shortness of breath has improved, although he is still not back to baseline. He admits to orthopnea and dyspnea on exertion, both of which are also improving. He also complains of a 4/10 sharp pain in his lower back in the paraspinal area bilaterally. He denies any trauma or straining of that area. He states that the pain is worse with certain movements, but it can also get worse if he lays still for too long. The patient denies fevers, chills, sweats, chest pain, palpitations, claudication, cough, wheezing, nausea, vomiting, abdominal pain, dysuria, hematuria, urinary retention, paralysis, weakness, numbness and tingling. Additional Comments: See HPI for pertinent positives and negatives. All other systems reviewed and negative. (Chelita Adler ., PA-C) Objective Vital Signs Date Time Temp Pulse Resp B/P (MAP) Pulse Ox O2 Delivery O2 Flow Rate FiO2 11/29/16 11:12 36.6 70 20 120/73 (89) 95 Room Air 11/29/16 08:00 Room Air 11/29/16 07:42 36.9 73 18 147/93 (111) 95 Room Air 11/29/16 04:19 36.7 70 18 97/63 (74) 95 CPAP 11/29/16 04:00 95 Room Air 11/29/16 00:00 95 Room Air 11/28/16 23:57 36.6 75 18 117/86 (96) 98 BiPAP 11/28/16 20:00 36.5 70 20 129/81 (97) 95 Room Air 11/28/16 20:00 95 Room Air 11/28/16 18:36 36.8 74 18 140/85 96 Room Air 11/28/16 18:00 37.0 71 20 121/72 97 11/28/16 16:44 71 20 97 11/28/16 16:43 121/72 11/28/16 15:04 70 18 94 11/28/16 14:59 71 14 95 11/28/16 14:49 70 13 94 11/28/16 14:44 70 15 95 11/28/16 14:39 69 21 94 11/28/16 14:34 70 21 95 11/28/16 14:32 96 Room Air 11/28/16 14:32 96 Room Air 11/28/16 14:31 73 11/28/16 14:31 116/75 11/28/16 14:28 108/64 11/28/16 13:00 37.0 78 24 136/84 97 Room Air (Chelita Adler ., PA-C) Physical Exam Notes: General appearance: +Morbidly obese. Well-developed, well-nourished, no apparent distress Head: Normocephalic, atraumatic Eyes: Normal inspection, PERRL, EOMI ENT: Normal ENT inspection, hearing grossly normal, pharynx normal Neck: Supple, no JVD, trachea midline Respiratory/Chest: +Crackles in bases bilaterally. Large surgical scar center of chest. Lungs clear to auscultation, normal breath sounds, no respiratory distress Cardiovascular: Regular rate & rhythm, no gallop, no murmur Abdomen/GI: Normal bowel sounds, non-tender, soft Extremities/Musculoskeletal: +Trace pitting edema. Normal inspection, no calf tenderness Neurological/Psych: Alert, normal mood/affect, oriented x 3 Skin: Normal color, warm/dry, no rash (Chelita Adler ., PA-C) Laboratory Results Last 24 Hours Test 11/28/16 13:15 11/28/16 14:05 11/28/16 21:28 11/29/16 06:00 Urine Color DK YELLOW Urine Appearance CLEAR Urine pH 6.0 Urine Specific [place] 1.026 Urine Protein 1+ Urine Glucose (UA) NEG Urine Ketones TRACE Urine Occult Blood TRACE Urine Nitrite NEG Urine Bilirubin NEG Urine Urobilinogen POS Urine Leukocyte Esterase NEG Urine WBC (Auto) 1-5 /hpf Urine RBC (Auto) 5-10 /hpf Urine Hyaline Casts (Auto) 1-5 /lpf Urine Epithelial Cells (Auto) 10-20 /lpf Urine Bacteria (Auto) NEG White Blood Count 6.19 K/uL Red Blood Count 5.21 M/uL Hemoglobin 15.7 g/dL Hematocrit 45.4 % Mean Corpuscular Volume 87.1 fL Mean Corpuscular Hemoglobin 30.1 pg Mean Corpuscular Hemoglobin Concent 34.6 g/dl Platelet Count 187 K/uL Mean Platelet Volume 11.9 fL Neutrophils (%) (Auto) 67.7 % Lymphocytes (%) (Auto) 17.6 % Monocytes (%) (Auto) 10.8 % Eosinophils (%) (Auto) 3.1 % Basophils (%) (Auto) 0.6 % Neutrophils # (Auto) 4.19 K/uL Lymphocytes # (Auto) 1.09 K/uL Monocytes # (Auto) 0.67 K/uL Eosinophils # (Auto) 0.19 K/uL Basophils # (Auto) 0.04 K/uL RDW Standard Deviation 46.2 fL RDW Coefficient of Variation 14.5 % Immature Granulocyte % (Auto) 0.2 % Immature Granulocyte # (Auto) 0.01 K/uL Prothrombin Time 10.7 SECONDS Prothromb Time International Ratio 1.0 Activated Partial Thromboplast Time 28.5 SECONDS Partial Thromboplastin Ratio 1.1 D-Dimer 310 ug/L FEU Sodium Level 143 mmol/L Potassium Level 4.1 mmol/L Chloride Level 109 mmol/L Carbon Dioxide Level 28 mmol/L Anion Gap 6.0 mmol/L Blood Urea Nitrogen 19 mg/dl Creatinine 1.30 mg/dl Est Creatinine Clear Calc Drug Dose 112.6 ml/min Estimated GFR () 76.4 Estimated GFR (Non- 65.9 BUN/Creatinine Ratio 14.7 Random Glucose 103 mg/dl Calcium Level 8.9 mg/dl Total Bilirubin 0.6 mg/dl Aspartate Amino Transf (AST/SGOT) 42 U/L Alanine Aminotransferase (ALT/SGPT) 48 U/L Alkaline Phosphatase 69 U/L Total Creatine Kinase 143 U/L Troponin I 0.058 ng/ml 0.080 ng/ml Pro-B-Type Natriuretic Peptide 1190 pg/ml Total Protein 7.6 gm/dl Albumin 4.0 gm/dl Globulin 3.6 gm/dl Albumin/Globulin Ratio 1.1 Creatine Kinase MB 3.4 ng/ml Creatine Kinase MB Ratio Test 11/29/16 07:14 White Blood Count 5.90 K/uL Red Blood Count 5.44 M/uL Hemoglobin 16.5 g/dL Hematocrit 48.3 % Mean Corpuscular Volume 88.8 fL Mean Corpuscular Hemoglobin 30.3 pg Mean Corpuscular Hemoglobin Concent 34.2 g/dl Platelet Count 188 K/uL Mean Platelet Volume 11.9 fL Neutrophils (%) (Auto) 54.6 % Lymphocytes (%) (Auto) 28.8 % Monocytes (%) (Auto) 11.0 % Eosinophils (%) (Auto) 4.7 % Basophils (%) (Auto) 0.7 % Neutrophils # (Auto) 3.22 K/uL Lymphocytes # (Auto) 1.70 K/uL Monocytes # (Auto) 0.65 K/uL Eosinophils # (Auto) 0.28 K/uL Basophils # (Auto) 0.04 K/uL RDW Standard Deviation 47.2 fL RDW Coefficient of Variation 14.6 % Immature Granulocyte % (Auto) 0.2 % Immature Granulocyte # (Auto) 0.01 K/uL Sodium Level 142 mmol/L Potassium Level 4.3 mmol/L Chloride Level 103 mmol/L Carbon Dioxide Level 33 mmol/L Anion Gap 6.0 mmol/L Blood Urea Nitrogen 22 mg/dl Creatinine 1.30 mg/dl Est Creatinine Clear Calc Drug Dose 110.6 ml/min Estimated GFR () 76.4 Estimated GFR (Non- 65.9 BUN/Creatinine Ratio 16.7 Random Glucose 104 mg/dl Estimated Average Glucose 117 mg/dl Hemoglobin A1c 5.7 % Calcium Level 9.7 mg/dl Phosphorus Level 3.8 mg/dl Magnesium Level 2.3 mg/dl Total Bilirubin 0.9 mg/dl Aspartate Amino Transf (AST/SGOT) 40 U/L Alanine Aminotransferase (ALT/SGPT) 47 U/L Alkaline Phosphatase 66 U/L Creatine Kinase MB 3.8 ng/ml Troponin I 0.091 ng/ml Total Protein 7.7 gm/dl Albumin 4.0 gm/dl Globulin 3.7 gm/dl Albumin/Globulin Ratio 1.1 (Chelita Adler, NICOLE) Diagnostic Results Echocardiogram: Interpretation Summary * Name: JULISSA MARIN Study Date: 11/29/2016 08:41 AM BP: 147/93 mmHg * Patient Location: [facility]\S\37\S\1 HR: 76 * : 1970 (M/d/yyyy) Gender: Male Height: 75 in * Age: 46 yrs Ethnicity: [place] Weight: 320 lb * Ordering Physician: Isaías Hogan * Referring Physician: Self, Referred * Performed By: Gloria Garcia RCS * * Reason For Study: CHF * BSA: 2.7 m2 * -- Conclusions -- * 1. Normal left ventricular size and systolic function. EF 60-65%. No regional wall motion abnormalities. Severe asymmetric hypertrophy of the anteroseptum and septal valderrama, up to 3.1 cm. Type 1 diastolic dysfunction. Tissue Doppler suggests elevated left atrial pressures. * 2. No dynamic LVOT obstruction suggested with spectral Doppler. * 3. Mild aortic regurgitation. * 4. Technically difficult study, enhanced with IV Definity. * 5. No significant change from prior study on 03/18/2016. Procedure Details * Left Ventricle Normal left ventricular size and systolic function. EF 60-65%. No regional wall motion abnormalities. Severe asymmetric hypertrophy of the anteroseptum and septal valderrama, up to 3.1 cm. Type 1 diastolic dysfunction. Tissue Doppler suggests elevated left atrial pressures. * Right Ventricle The right ventricle is not well visualized. The right ventricle is grossly normal size. The right ventricular systolic function is normal as assessed by tricuspid annular plane systolic excursion (TAPSE) (normal >1.5 cm). * Atria Borderline left atrial enlargement. Right atrial size is normal. * Mitral Valve The mitral valve is grossly normal. There is no mitral valve stenosis. There is trace mitral regurgitation. Systolic anterior motion of mitral chordal structures, without evidence of obstruction. * Tricuspid Valve The tricuspid valve is not well visualized, but is grossly normal. There is no tricuspid stenosis. Significant tricuspid regurgitation is absent. * Aortic Valve The aortic valve is trileaflet. No hemodynamically significant valvular aortic stenosis. Mild aortic regurgitation. * Pulmonic Valve The pulmonary valve is inadequately visualized, but the Doppler data is adequate for interpretation. There is no pulmonic valvular stenosis. Trace pulmonic valvular regurgitation. * Great Vessels The aortic root is normal size. * Pericardium/Pleural There is no pericardial effusion. * Great Vessels IVC not visualized. (Chelita Adler ., PA-C) Assessment and Plan 46 y/o male with a history of complete heart block, hypertrophic cardiomyopathy , h/o MA, s/p ICD/pacemaker, MEENU, and HTN, who presented to the ED because of persistent SOB at rest and with exertion over the past few days. Acute on chronic diastolic CHF exacerbation, hypertrophic cardiomyopathy, HTN, h /o MA, s/p ICD/pacemaker, follows w/ Dr. Hogan--improving - Admit to tele for cardiac monitoring. No acute events overnight. Pt in paced rhythm in 70s - Troponin up to 0.091. Chronically elevated - O2 protocol. Pt saturating well on room air - Continue Lasix 40 mg IV BID. Pt reports non-compliance with low sodium diet at home - Low sodium diet, daily weights and I's & O's - Lost about 1L of fluid so far - CXR- no acute cardiopulmonary findings - No acute EKG changes - D-dimer- negative - Continue Aldactone 25 mg daily, Lopressor 12.5 mg BID, ASA 81 mg daily - Consult cardiology appreciate recommendations: continue IV diuresis and low sodium diet. Echocardiogram ordered. May need biventricular device if LV systolic function reduced. - Pacemaker interrogated today, results pending - Echo: * -- Conclusions -- * 1. Normal left ventricular size and systolic function. EF 60-65%. No regional wall motion abnormalities. Severe asymmetric hypertrophy of the anteroseptum and septal valderrama, up to 3.1 cm. Type 1 diastolic dysfunction. Tissue Doppler suggests elevated left atrial pressures. * 2. No dynamic LVOT obstruction suggested with spectral Doppler. * 3. Mild aortic regurgitation. * 4. Technically difficult study, enhanced with IV Definity. * 5. No significant change from prior study on 03/18/2016. Lumbar pain/CVA tenderness--stable - Percocet PRN - Renal ultrasound normal - UA negative for bacteria MEENU -Continue CPAP DVT prophylaxis -Enoxaparin 40 mg SC q24h -SERA diane and SCDs Code Status -Level I, FULL RESUSCITATION STATUS (Chelita Adler ., PA-C) I agree with PA assessment and plan and have seen and examined Pt presented with sob and lower ext edema Resting comfortably in bed VSS and labs reviewed Appreciate card recs at this time May require biventricular device during hospitalization due to poor compliance as OP ECHO pending Further recs to follow Appropriate diuresis (Ozzy Romano, D.O.)
[2016-11-29] MEDS: FUROSEMIDE INJ 80 MG in SYRINGE 0 ML IV SCH (16:26)
[2016-11-29] MEDS: ENOXAPARIN 40 MG/0.4 ML SYR SC SCH (21:23)
[2016-11-30 00:30] VITALS: O2SAT 95
[2016-11-30] MEDS: OXYCODONE/ACETAMINOPHEN 5-325 TAB PO PRN ×2 (03:17→09:11)
[2016-11-30 03:57] VITALS: BP 134/82; PULSE 73; TEMP 36.5; O2SAT 98
[2016-11-30 07:19] LABS: BUN/CREATININE RATIO 20.1 (10-20); CALCIUM 9.3 mg/dl (8.5-10.1); CREATININE 1.4 mg/dl (0.60-1.40); POTASSIUM 3.7 mmol/L (3.5-5.1)
[2016-11-30 08:16] VITALS: BP 132/87; PULSE 70; TEMP 36.4; O2SAT 98
[2016-11-30] MEDS: ASPIRIN 81 MG ECTAB PO SCH (09:09)
[2016-11-30] MEDS: FUROSEMIDE INJ 80 MG in SYRINGE 0 ML IV SCH (09:09)
[2016-11-30] MEDS: SPIRONOLACTONE 25 MG TAB PO SCH (09:10)
[2016-11-30] MEDS: METOPROLOL TARTRATE 25 MG TAB PO SCH (09:10)
[2016-11-30] MEDS ORDERED: FRS/40 PO (09:56)
[2016-11-30] MEDS ORDERED: OXYC-57 PO (09:56)
--- NOTE | 2016-11-30 10:12 | Discharge Instructions ---
Discharge Instructions Date of Service Nov 30, 2016. Admission Reason for Admission: History Of Chf, Shortness Of Breath Discharge Discharge Diagnosis / Problem: Acute on chronic diastolic congestive heart failure, back pain Discharge Goals Goal(s): Decrease discomfort, Improve function, Diagnostic testing, Therapeutic intervention Activity Recommendations Activity Limitations: resume your previous activity (as tolerated) . Instructions / Follow-Up Instructions / Follow-Up You were admitted to the hospital with persistent shortness of breath. You were found to be in an acute exacerbation of your chronic diastolic congestive heart failure. You were treated with IV Lasix which successfully diuresed the excess fluid off and resulted in good urine output. As your breathing has improved and you have lost over 2 liters of fluid since admission, you are now stable for discharge home. Diet recommendations: *Watch your salt/sodium intake. Do not exceed 2 grams or 2000 milligrams of sodium in a day. Medications: *Your home Lasix dose has been increased to 100 mg by mouth twice a day (2.5 tablets twice a day). This prescription has been sent to your pharmacy. *You may take Percocet 5/325 mg 1 tablet by mouth up to every 4 hours as needed for severe pain (pain rating of a 7 out of 10 or higher) for your back. For less severe pain, you may take ibuprofen or acetaminophen over the counter as needed. Please take only as directed. *Continue your other home medications as prescribed. Follow up: *Maintain your previously scheduled follow up appointment with your primary care provider, Dr. Davis, on December 04. *Please follow up with Dr. Hogan in about 2 weeks. *Maintain your previously scheduled follow up appointment with Dr. Medrano regarding your pacemaker. Please seek medical attention if you experience fevers, chills, sweats, dizziness/lightheadedness, loss of consciousness, chest pain, worsening shortness of breath, nausea, vomiting, numbness or tingling. Call your Primary Care doctor if any of the following symptoms or problems start or get worse: * Shortness of breath or difficulty breathing * Wake up at night short of breath * Chest pain * Cough * Swelling of your hands, feet, or legs * More fatigued or tired with your normal activity * Palpitations - sudden fast heart beats WEIGHT * Weigh yourself every morning after using the bathroom. * Use the same scale. * Wear the same amount of clothing. * Write your weight down on a chart. * Call your Primary Care doctor if you gain more than 2-3 pounds in 1-2 days. MEDICATIONS * Use this discharge instruction sheet for medication instructions. * Take your medications at the time your doctor ordered. * Do not skip a dose of your medicines. * If you miss a dose of medicine, take it as soon as possible, but DO NOT DOUBLE A DOSE. * Read your medicine information when you get home. * Know all of the side effects of your medicine. If in doubt, ask your pharmacist * Call your Primary Care doctor's office if you have any side effects. * Be sure all of your doctors know what medicine and herbs you take (including cold, flu, and herbal medicine). Take the following with you to your follow-up doctor appointments: * Weight Chart * Medication List * List of questions Do not drink excessive alcohol, beer or wine. Current Hospital Diet Patient's current hospital diet: AHA Diet (Heart Healthy), Low Sodium Diet (2gm Na) Discharge Diet Recommended Diet: AHA Diet (Heart Healthy), Low Sodium Diet (2gm Na) Procedures Procedures Performed: Echocardiogram Pending Studies Studies pending at discharge: no Laboratory Results Hemoglobin A1c Test 11/29/16 07:14 Range/Units Estimated Average Glucose 117 mg/dl Hemoglobin A1c 5.7 H 4.5-5.6 % Medical Emergencies . Who to Call and When: Call 911 or go to the Emergency Room if: * If at any time you feel your situation is an emergency * You have tightness or pain in your chest that does not go away with rest or Nitroglycerin * You are very short of breath even with rest . Non-Emergent Contact Non-Emergency issues call your: Primary Care Provider, [employer] Call Non-Emergent contact if: you have a fever, you have any medication questions . Past History Medical & Surgical History: (1) Acute on chronic diastolic (congestive) heart failure (2) Back pain . "Provider Documentation" section prepared by Chelita Adler. . VTE Core Measure Inpt VTE Proph given/why not?: Enoxaparin (Lovenox)HOMA, TSeraEADALBERTO [place] [place] Drug Monitoring Program Search Results: patient reviewed within database, no issues identified
--- NOTE | 2016-11-30 10:19 | Discharge Summary ---
Discharge Summary Date of Service Nov 30, 2016. Discharge Summary Admission Date: Nov 28, 2016 at 17:19 Discharge Date: Nov 30, 2016 Discharge Disposition: Home Principal Diagnosis: Acute on chronic diastolic CHF, back pain Immunizations: Have You Had Influenza Vaccine: Yes History of Tetanus Vaccine?: Yes History of Pneumococcal: Yes History of Hepatitis B Vaccine: No Procedures: Echocardiogram: Interpretation Summary * Name: JULISSA MARIN Study Date: 11/29/2016 08:41 AM BP: 147/93 mmHg * Patient [facility]: [facility]\S\1 HR: 76 * : 1970 (M/d/yyyy) Gender: Male Height: 75 in * Age: 46 yrs Ethnicity: [place] Weight: 320 lb * Ordering Physician: Isaías Hogan * Referring Physician: Self, Referred * Performed By: Gloria Garcia RCS * * Reason For Study: CHF * BSA: 2.7 m2 * -- Conclusions -- * 1. Normal left ventricular size and systolic function. EF 60-65%. No regional wall motion abnormalities. Severe asymmetric hypertrophy of the anteroseptum and septal valderrama, up to 3.1 cm. Type 1 diastolic dysfunction. Tissue Doppler suggests elevated left atrial pressures. * 2. No dynamic LVOT obstruction suggested with spectral Doppler. * 3. Mild aortic regurgitation. * 4. Technically difficult study, enhanced with IV Definity. * 5. No significant change from prior study on 03/18/2016. Procedure Details * Left Ventricle Normal left ventricular size and systolic function. EF 60-65%. No regional wall motion abnormalities. Severe asymmetric hypertrophy of the anteroseptum and septal valderrama, up to 3.1 cm. Type 1 diastolic dysfunction. Tissue Doppler suggests elevated left atrial pressures. * Right Ventricle The right ventricle is not well visualized. The right ventricle is grossly normal size. The right ventricular systolic function is normal as assessed by tricuspid annular plane systolic excursion (TAPSE) (normal >1.5 cm). * Atria Borderline left atrial enlargement. Right atrial size is normal. * Mitral Valve The mitral valve is grossly normal. There is no mitral valve stenosis. There is trace mitral regurgitation. Systolic anterior motion of mitral chordal structures, without evidence of obstruction. * Tricuspid Valve The tricuspid valve is not well visualized, but is grossly normal. There is no tricuspid stenosis. Significant tricuspid regurgitation is absent. * Aortic Valve The aortic valve is trileaflet. No hemodynamically significant valvular aortic stenosis. Mild aortic regurgitation. * Pulmonic Valve The pulmonary valve is inadequately visualized, but the Doppler data is adequate for interpretation. There is no pulmonic valvular stenosis. Trace pulmonic valvular regurgitation. * Great Vessels The aortic root is normal size. * Pericardium/Pleural There is no pericardial effusion. * Great Vessels IVC not visualized. Consultations: Cardiology--Dr. Hogan Medication Reconciliation New Medications: Oxycodone/Acetaminophen 5MG/325MG (Percocet 5MG/325MG) Tab 1 TAB PO Q4H PRN for Pain 7-10 for 3 Days, #12 TAB Take up to every 4 hours as needed for pain rating of 7 out of 10 or higher. Changed Medications: Furosemide (Lasix) 40 Mg Tab 100 MG PO BID for 30 Days, #150 TAB (Changed from: 80 MG) Continued Medications: Aspirin (Aspirin Ec) 81 Mg Tab 81 MG PO DAILY Metoprolol Tartrate (Lopressor) (Lopressor) 25 Mg Tab 12.5 MG PO BID Spironolactone (Aldactone) 25 Mg Tab 25 MG PO DAILY, TAB Discharge Exam Patient reports feeling better. His breathing has improved. He still complains of 7/10 sharp lower back pain. The patient denies fevers, chills, sweats, chest pain, palpitations, claudication, cough, wheezing, shortness of breath, nausea, vomiting, abdominal pain, dysuria, hematuria, urinary retention , paralysis, weakness, numbness and tingling. Review of Systems: Constitutional: No fever, No chills, No sweats Eyes: No worsening of vision, No eye pain, No diplopia ENT: No hearing loss, No sore throat, No trouble swallowing Respiratory: No cough, No wheezing, No shortness of breath Cardiovascular: No chest pain, No claudication, No palpitations Abdomen: No pain, No nausea, No vomiting Musculoskeletal: + joint pain (low back pain), No muscle pain, No calf pain Genitourinary - Male: No hematuria, No dysuria, No urinary retention Neurologic: No paralysis, No weakness, No numbness/tingling Integumentary: No rash, No itch, No color change Physical Exam: General Appearance: WD/WN, no apparent distress, + obese (morbidly obese) Eyes: normal inspection, PERRL, EOMI ENT: normal ENT inspection, hearing grossly normal, pharynx normal Neck: supple, no JVD, trachea midline Respiratory/Chest: lungs clear, normal breath sounds, no respiratory distress Cardiovascular: regular rate, rhythm, no gallop, no murmur Abdomen / GI: normal bowel sounds, non tender, soft Extremities: normal inspection, no calf tenderness, no pedal edema, + pertinent finding (lumbar paraspinal areas TTP bilaterally. No tenderness on spinal processes) Neurologic/Psychiatric: alert, normal mood/affect, oriented x 3 Skin: normal color, warm/dry, no rash Hospital Course 46 y/o male with a history of complete heart block, hypertrophic cardiomyopathy , h/o NE, s/p ICD/pacemaker, MEENU, and HTN, who presented to the ED because of persistent SOB at rest and with exertion over the past few days. Acute on chronic diastolic CHF exacerbation, hypertrophic cardiomyopathy, HTN, h /o NE, s/p ICD/pacemaker, follows w/ Dr. Hogan--improving - Admit to tele for cardiac monitoring. No acute events overnight. Pt in paced rhythm in 60s-70s - Troponin up to 0.091. Chronically elevated. No chest pain or EKG changes. - O2 protocol. Pt saturating well on room air - Lasix 80 mg IV BID Pt reports non-compliance with low sodium diet at home - Discharge on Lasix 100 mg PO BID. Discussed importance of low sodium (2gm) diet and daily weights - Low sodium diet, daily weights and I's & O's - Negative 2+ liters this admission - CXR- no acute cardiopulmonary findings - No acute EKG changes - D-dimer- negative - Continue Aldactone 25 mg daily, Lopressor 12.5 mg BID, ASA 81 mg daily - Consult cardiology appreciate recommendations: continue IV diuresis and low sodium diet. No need for biventricular device at this time as LVEF is normal. - Echo: * -- Conclusions -- * 1. Normal left ventricular size and systolic function. EF 60-65%. No regional wall motion abnormalities. Severe asymmetric hypertrophy of the anteroseptum and septal valderrama, up to 3.1 cm. Type 1 diastolic dysfunction. Tissue Doppler suggests elevated left atrial pressures. * 2. No dynamic LVOT obstruction suggested with spectral Doppler. * 3. Mild aortic regurgitation. * 4. Technically difficult study, enhanced with IV Definity. * 5. No significant change from prior study on 03/18/2016. Lumbar pain/CVA tenderness--stable - Percocet PRN. Discharge with 3 days Percocet 5/325 mg 1 tab q4h prn severe pain. Advised to take ibuprofen/Tylenol for less severe pain - Renal ultrasound normal - UA negative for bacteria MEENU -Continue CPAP DVT prophylaxis -Enoxaparin 40 mg SC q24h -SERA diane and SCDs Code Status -Level I, FULL RESUSCITATION STATUS Total Time Spent: Greater than 30 minutes This includes examination of the patient, discharge planning, medication reconciliation, and communication with other providers. Discharge Instructions Please refer to the electronic Patient Visit Report (Discharge Instructions) for additional information. Follow-Up F/u with PCP in 1 week. Pt states he already has appt scheduled December 04. F/u cardiology in 2 weeks. Continue routine f/u at device clinic with Dr. Medrano Additional Copies To Alfred Davis M.D.
[2016-11-30 10:44] VITALS: BP 130/85; PULSE 62; TEMP 36.6; O2SAT 95
[2016-11-30 10:46] VITALS: BP 132/87; PULSE 70; TEMP 36.4; O2SAT 98
--- NOTE | 2016-11-30 12:06 | Cardiology Follow-Up ---
Subjective Date of Service: Nov 30, 2016. Pt evaluation today including: conversation w/ patient, physical exam, lab review, review of studies, review of inpatient medication list History of Present Illness Patient feels well today, he may not be quite back to normal but close. No shortness of breath when laying supine in bed. No significant exertional shortness of breath. No palpitations. Review of Systems Respiratory: No cough, No shortness of breath Cardiac: + see HPI, No chest pain Medications Cardiovascular: Item Value Date Time Furosemide 80 mg/ 8 ml @ 4 mls/min 11/29/16 1700 Syringe BID17/IV 11/30/16 0909 Aspirin 81 mg 11/29/16 0900 (Ecotrin Tab) QAM/PO 11/30/16 0909 Spironolactone 25 mg 11/29/16 0900 (Aldactone Tab) DAILY/PO 11/30/16 0910 Metoprolol 12.5 mg 11/28/16 2100 Tartrate BID/PO 11/30/16 0910 (Lopressor Tab) Objective Vital Signs Past 12 Hours Date Time Temp Pulse Resp B/P (MAP) Pulse Ox O2 Delivery O2 Flow Rate FiO2 11/30/16 10:46 36.4 70 20 98 Room Air 11/30/16 10:44 36.6 62 20 130/85 (100) 95 Room Air 11/30/16 08:16 36.4 70 20 132/87 (102) 98 Room Air 11/30/16 08:00 Room Air 11/30/16 04:05 Room Air 11/30/16 03:57 36.5 73 18 134/82 (99) 98 Room Air 11/30/16 00:30 95 Room Air Last Recorded Weight-Kilograms: 145.200 Physical Exam Constitutional: Level of Distress: NAD Lungs: Auscultation: breath sounds normal Cardiovascular: Heart Auscultation: RRR, no murmurs Extremities: edema (+1 bilateral) Gen.: No acute distress. Alert and oriented. HEENT: Anicteric sclera. Neck: There appears to be mild JVD but difficult exam due to thick neck. No bruits. Normal carotid upstrokes bilaterally. Cardiac: PMI was non palpable. No ventricular heave. Regular rate and rhythm. Normal S1-S2. 1/6 systolic murmur. No rubs or gallops. Pulmonary: Clear to auscultation bilaterally without wheezes, rales, or rhonchi. Abdomen: Soft, nontender, nondistended, with normoactive bowel sounds. No bruits noted. Extremities: 2+ radial pulses bilaterally. 2+ posterior tibialis pulses bilaterally. No pitting edema or cyanosis. Psychiatric: Affect appears appropriate. Chest: Sternotomy scar noted. Data Laboratory Results: Last 24 Hours Test 11/30/16 06:01 Sodium Level 140 mmol/L Potassium Level 3.7 mmol/L Chloride Level 102 mmol/L Carbon Dioxide Level 33 mmol/L Anion Gap 5.0 mmol/L Blood Urea Nitrogen 28 mg/dl Creatinine 1.40 mg/dl Est Creatinine Clear Calc Drug Dose 102.5 ml/min Estimated GFR () 69.8 Estimated GFR (Non- 60.3 BUN/Creatinine Ratio 20.1 Random Glucose 100 mg/dl Calcium Level 9.3 mg/dl EKG: Ventricular pacing with AV disassociation (complete heart block with a single-chamber device) Telemetry reviewed: Appropriate ventricular pacing Pacemaker interrogation: I reviewed the pacemaker interrogation, his activity level has been steadily increasing since device implantation until just before admission, this suggests an acute decompensated in and not a gradual progression. He has been left at 70 bpm, I believe from initial implantation when he was in complete heart block when we gradually decreased pacing rate. I reprogrammed the pacing rate to 60 bpm. Overall heart rate profile looks good. Assessment and Plan #1. Congestive heart failure: The reason for this remains unclear. He had a sudden decrease in his activity perhaps less than one week prior to admission, suggesting this was an acute event. He does not recall having a change in his diet but no other obvious cause has been identified. Presumably this was diastolic dysfunction. With a steady increase in activity since device implantation I don't think he is suffering from AV dyssynchrony. I would continue with his outpatient regimen and watch him closely, this may have been a decompensation for a transient cause (such as an unrecognized fluid or salt intake). #2. ICD: He has a single-chamber ICD which was implanted before he developed heart block from his myomectomy. He is pacing all of the time appropriately and his heart rate distribution looks good. He is not going to have AV synchrony, but he seems to have no side effects from it and his activity level does not seem to be suffering. I think there would be very little advantage to providing AV synchrony but we may want to do that in the future. For now I would let him recover from his current illness and we can plan on evaluating that further in the future. He is scheduled to, to see me in several months and I will keep that appointment in place. Thank you for allowing me to participate in his care.
== END 2016-11-30 12:18 | disposition home or self-care (01) ==
LOC: C.EDB 12:45 → C.2T 17:19 → ENRESERV 17:25
PROVIDERS: ADMIT Internal Medicine; ATTEND Hospitalist
DX: I50.9 Heart failure, unspecified (principal); R06.02 Shortness of breath; R07.9 Chest pain, unspecified; E78.5 Hyperlipidemia, unspecified; I25.2 Old myocardial infarction; Z95.810 Presence of automatic (implantable) cardiac defibrillator; Z87.81 Personal history of (healed) traumatic fracture; Z90.89 Acquired absence of other organs; Z83.3 Family history of diabetes mellitus; Z82.49 Family history of ischemic heart disease and other diseases of the circulatory system; Z87.891 Personal history of nicotine dependence; Z79.82 Long term (current) use of aspirin; Z86.79 Personal history of other diseases of the circulatory system; I10 Essential (primary) hypertension; G47.33 Obstructive sleep apnea (adult) (pediatric); I44.2 Atrioventricular block, complete; M54.5 Low back pain

== ENCOUNTER → 2016-12-07 | Outpatient (CLI) | payer OTHER ==
[~2016-12-07] MED LIST changes: -AMX500 PO; -BENZ1CAP90 PO; -LPR25 PO; +METO25TA56 PO; +OXYC-57 PO; -TAMS0.4C38 PO
[2016-12-07 17:11] LABS: BLOOD UREA NITROGEN 23 mg/dl (7-18); CALCIUM 8.9 mg/dl (8.5-10.1); CARBON DIOXIDE 29 mmol/L (21-32); CHLORIDE 108 mmol/L (98-107); GLUCOSE 115 mg/dl (70-99); MAGNESIUM 2.1 mg/dl (1.8-2.4); POTASSIUM 4.3 mmol/L (3.5-5.1); SODIUM 141 mmol/L (136-145)
== END | disposition home or self-care (01) ==
LOC: C.LABPBG 11:27
PROVIDERS: ATTEND Family Medicine
DX: I50.32 Chronic diastolic (congestive) heart failure (principal)

== ENCOUNTER → 2016-12-17 | Outpatient (CLI) | payer OTHER ==
[2016-12-17 18:34] LABS: BLOOD UREA NITROGEN 23 mg/dl (7-18); BUN/CREATININE RATIO 16.1 (10-20); CALCIUM 9.6 mg/dl (8.5-10.1); CARBON DIOXIDE 31 mmol/L (21-32); CHLORIDE 101 mmol/L (98-107); GLUCOSE 135 mg/dl (70-99); POTASSIUM 3.1 mmol/L (3.5-5.1); SODIUM 138 mmol/L (136-145)
== END | disposition home or self-care (01) ==
LOC: C.LABPBG 15:45
PROVIDERS: ATTEND Physician Assistant
DX: I50.32 Chronic diastolic (congestive) heart failure (principal)

== ENCOUNTER → 2017-01-04 | Outpatient (CLI) | payer OTHER ==
[2017-01-04 17:00] LABS: BLOOD UREA NITROGEN 16 mg/dl (7-18); BUN/CREATININE RATIO 12.1 (10-20); CALCIUM 9.1 mg/dl (8.5-10.1); CARBON DIOXIDE 30 mmol/L (21-32); CHLORIDE 104 mmol/L (98-107); GLUCOSE 151 mg/dl (70-99); POTASSIUM 3.9 mmol/L (3.5-5.1); SODIUM 139 mmol/L (136-145)
== END | disposition home or self-care (01) ==
LOC: C.LAB1850 15:16
PROVIDERS: ATTEND Physician Assistant
DX: I50.32 Chronic diastolic (congestive) heart failure (principal)

== ENCOUNTER 2017-04-02 16:29 | Emergency (ER) | payer OTHER ==
[~2017-04-02] VITALS: Ht 190.5 cm; Wt 146.0 kg
[2017-04-02 16:30] VITALS: TEMP 36.7; O2SAT 96; Ht 190.5 cm; Wt 146.0 kg
[2017-04-02] MEDS ORDERED: OXYCODONE HCL IR 5 MG TAB (IMMEDIATE RELEASE) PO STA (16:45)
[2017-04-02] MEDS ORDERED: LSX/40 PO (17:00)
[2017-04-02] MEDS ORDERED: TAMS0.4C38 PO (17:02)
[2017-04-02] MEDS ORDERED: METO2.5T PO (17:07)
[2017-04-02] MEDS ORDERED: FLUT1INH7 INH (17:07)
[2017-04-02] MEDS ORDERED: POTA20TA16 PO (17:07)
--- NOTE | 2017-04-02 17:19 | DIAGNOSTIC IMAGING REPORT ---
L KNEE 3 VIEWS CLINICAL HISTORY: 46 years-old Male presenting with L knee pain. TECHNIQUE: Frontal, lateral, and sunrise views of the left knee were obtained. COMPARISON: None. FINDINGS: Knee joint congruent. No acute fracture or malalignment. No patellar subluxation. No gross evidence of a knee joint effusion. Diffuse subcutaneous edema suggested. No advanced degenerative change. IMPRESSION: No acute osseous injury of the left knee. Electronically signed by: Fareed Smart M.D. 04/02/2017 5:18 PM Dictated Date/Time: 04/02/2017 5:17 PM
[2017-04-02] MEDS ORDERED: OXYC1TAB3 PO (17:41)
--- NOTE | 2017-04-02 17:46 | EMERGENCY ROOM VISIT NOTE ---
History First contact with patient: 16:33 Chief Complaint: KNEEPAIN Stated Complaint: KNEE PAIN History of Present Illness The patient is a 46 year old male who presents to the Emergency Room with complaints of left knee pain for the past 4 weeks. The patient denies any known injury to the knee. He reports pain mostly over the inner aspect of any that is worsened when lying up and down steps. He reports that the knee feels like it also wants to pop, but has not noticed any instability, clicking or locking of the knee. The patient reports that even a blanket touching the knee worsens his discomfort. The patient denies any erythema, ecchymosis or significant edema of the knee. He does occasionally have pain radiating into the calf and distal anterior thigh region. The patient reports that he was diagnosed with Lyme's disease in 2007, but has never had any other significant arthritis. He reports a prior history of right anterior cruciate ligament injury that was treated nonoperatively with physical therapy. He currently denies any paresthesias or numbness of the left lower extremity, back pain or left hip pain area he currently rates his discomfort a 3 out of 10, but reports that the pain quickly escalates to an 8 or 9 out of 10 with weightbearing. The patient has tried topical products, ibuprofen, ice and heat without relief. Review of Systems 10 system review was performed and was negative except for pertinent positives and negatives as indicated in history of present illness Past Medical/Surgical History Medical Problems: (1) Acute on chronic diastolic (congestive) heart failure (2) Back pain (3) Chest pain (4) Closed fracture of cervical spine (5) Dyslipidemia (6) Hypertrophic cardiomyopathy (7) Hypoxia (8) Implantation of internal cardiac defibrillator (9) Myocardial infarction (10) Pleuritis (11) s p insertion AICD (12) s/p appendectomy (13) Sleep apnea Family History Cancer 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 Heart disease Social History Smoking Status: Former Smoker Alcohol Use: occasionally Drug Use: none Marital Status: Housing Status: lives with family Occupation Status: employed Current/Historical Medications Scheduled Aspirin (Aspirin Ec), 81 MG PO DAILY Fluticasone Furoate-Vilanterol (Breo Ellipta 200-25 Mcg/INH), 1 PUFF INH DAILY Furosemide (Lasix), 100 MG PO BID Metolazone (Zaroxolyn), 2.5 MG PO Q2D Metoprolol Tartrate (Lopressor) (Lopressor), 12.5 MG PO BID Potassium Ext Rel (Klor-Con), 20 MEQ PO DAILY Spironolactone (Aldactone), 25 MG PO DAILY Tamsulosin Hcl (Flomax), 0.4 MG PO DAILY Scheduled PRN Oxycodone Ir (Roxicodone Ir), 1-2 TAB PO Q4H PRN for Pain Physical Exam Vital Signs Date Time Temp Pulse Resp B/P (MAP) Pulse Ox O2 Delivery O2 Flow Rate FiO2 04/02/17 16:30 36.7 80 18 154/90 96 Room Air Physical Exam CONSTITUTIONAL: Healthy and well nourished. Alert and oriented X 3 with positive affect. Patient appears in mild discomfort from pain. HEENT: Normocephalic, atraumatic. Pupils equal, round and reactive. NECK: Full active range of motion without discomfort. MUSCULOSKELETAL: Examination of the left knee does not show any erythema, increased warmth to palpation, ecchymosis or other skin changes. The patient has tenderness to palpation over the medial joint line with even light touch. He also has mildly worsening discomfort with valgus stress on the knee. The patient is able to flex and extend the knee with moderate discomfort. Negative anterior draw, negative posterior draw. The patient has no other significant tenderness to palpation of the patella, patellar/quadriceps tendons, hamstrings or gastrocs. Pedal pulses are intact. INTEGUMENTARY: No rash or other significant dermatologic conditions noted. NEUROLOGIC: No focal neurologic deficits noted. Left lower extremity is sensory intact. Medical Decision & Procedures ER Provider Diagnostic Interpretation: My interpretation of left knee x-rays does not show any obvious joint effusion, fractures, dislocation or significant degenerative changes area. Radiologist report is as follows: L KNEE 3 VIEWS CLINICAL HISTORY: 46 years-old Male presenting with L knee pain. TECHNIQUE: Frontal, lateral, and sunrise views of the left knee were obtained. COMPARISON: None. FINDINGS: Knee joint congruent. No acute fracture or malalignment. No patellar subluxation. No gross evidence of a knee joint effusion. Diffuse subcutaneous edema suggested. No advanced degenerative change. IMPRESSION: No acute osseous injury of the left knee. Medications Administered Medications (Trade) Dose Ordered Sig/Ida Route Start Time Stop Time Status Last Admin Dose Admin Oxycodone HCl (Roxicodone Immediate Rel Tab) 5 mg NOW STAT PO 04/02/17 16:45 04/02/17 16:47 DC 04/02/17 16:56 5 MG ED Course Patient history and physical exam were performed. Nurse's notes were reviewed. Vital signs were reviewed and were normal. The patient did request something stronger for pain since of the medicines have not helped. He was administered OxyIR 5 mg. X-rays of the left knee were otherwise unremarkable. A knee immobilizer and crutches were dispensed. The patient was encouraged to intermittently apply ice to the knee. He was encouraged to continue alternating ibuprofen and Tylenol for baseline pain relief. He received a prescription for OxyIR 5 mg, dispensed #15 with no refills. The patient was encouraged to follow-up with orthopedics for further reevaluation and management. The patient was happy with plan of care, voiced understanding of all discharge instructions, and rated his discomfort a 4 out of 10 at the conclusion of my exam. Medical Decision [place] Drug Monitoring Program Search Results: patient reviewed within database, no issues identified Medication Reconcilliation Current Medication List: was personally reviewed by me Blood Pressure Screening Patient's blood pressure: Elevated blood pressure Blood pressure disposition: Referred to PCP Impression Primary Impression: Left medial knee pain Additional Impression: Elevated blood pressure reading Departure Information Prescriptions Oxycodone Ir (Roxicodone Ir) 5 Mg Tab 1-2 TAB PO Q4H Y for Pain, #15 TAB For Initial Treatment Prov: Bo Gordon PA 04/02/17 Referrals Alfred Davis M.D. (PCP) Patient Instructions My [facility] Problem Qualifiers
[2017-04-02 18:20] VITALS: BP 171/88; PULSE 68
== END 2017-04-02 18:28 | disposition home or self-care (01) ==
LOC: C.EDB 16:29 → C.EDD 18:28
DX: M25.562 Pain in left knee (principal); R03.0 Elevated blood-pressure reading, without diagnosis of hypertension; I50.32 Chronic diastolic (congestive) heart failure; E78.5 Hyperlipidemia, unspecified; I42.2 Other hypertrophic cardiomyopathy; I25.2 Old myocardial infarction; Z95.810 Presence of automatic (implantable) cardiac defibrillator; Z79.82 Long term (current) use of aspirin; Z90.89 Acquired absence of other organs; Z87.891 Personal history of nicotine dependence; Z80.9 Family history of malignant neoplasm, unspecified; Z83.3 Family history of diabetes mellitus; Z82.49 Family history of ischemic heart disease and other diseases of the circulatory system

== ENCOUNTER 2017-04-27 20:19 | Inpatient (IN) | payer OTHER ==
[~2017-04-27] VITALS: Ht 190.5 cm; Wt 150.7 kg
[~2017-04-27 20:19] MED LIST changes: -ASPI81TA28 PO; +FLUT1INH7 INH; -FRS/40 PO; +LSX/40 PO; +METO2.5T PO; -OXYC-57 PO; +OXYC-90 PO; -SPIR25TA PO
--- NOTE | 2017-04-27 20:44 | EMERGENCY ROOM VISIT NOTE ---
History First contact with patient: 20:23 Chief Complaint: SYNCOPE Stated Complaint: SYNCOPE Nursing Triage Summary: Pt brought ALS from home for syncope x 2 today. Pt was at home today and around noon became diaphoretic, pale, sweaty, weak, dizzy and passed out. Pt has hx of hypertrophic cardiomyopathy and has a pacemaker. Pt arrives alert and oriented, denies any chest pain, states that SOB is normal. Pt reports that fluid retention in BLE is new today and began around noon, reported to EMS about a 5 pound weight gain. History of Present Illness The patient is a 46 year old male who presents to the Emergency Room via ambulance with complaints of "syncope". The patient states that he has a history of hypertrophic cardiomyopathy and has a pacemaker. He states that his rate is typically at 72. He states that earlier today around noon time she felt lightheaded, and weak and shaky. He states that he sat down and could not feel better. He states that he had difficulty focusing. He states that he felt weak, and when he would turn his head while walking he and noticed his vision would go black. He states that he was then in the bathroom and stood up and turned around and passed out. He notes back pain since that time but denies anticoagulants. He follows with Dr. Hogan. Review of Systems A complete 10-point Review of Systems was discussed with the patient, with pertinent positives and negatives listed in the History of Present Illness. All remaining Review of Systems questions can be considered negative unless otherwise specified. Past Medical/Surgical History Medical Problems: (1) Acute on chronic diastolic (congestive) heart failure (2) Back pain (3) Chest pain (4) Closed fracture of cervical spine (5) Dyslipidemia (6) Hypertrophic cardiomyopathy (7) Hypoxia (8) Implantation of internal cardiac defibrillator (9) Myocardial infarction (10) Pleuritis (11) s p insertion AICD (12) s/p appendectomy (13) Sleep apnea Family History Cancer 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 Heart disease Social History Smoking Status: Former Smoker Alcohol Use: occasionally Drug Use: none Marital Status: Housing Status: lives with family Occupation Status: employed Current/Historical Medications Scheduled Aspirin (Aspirin Ec), 81 MG PO DAILY Fluticasone Furoate-Vilanterol (Breo Ellipta 200-25 Mcg/INH), 1 PUFF INH DAILY Furosemide (Lasix), 100 MG PO BID Metolazone (Zaroxolyn), 2.5 MG PO Q2D Metoprolol Tartrate (Lopressor) (Lopressor), 12.5 MG PO BID Potassium Ext Rel (Klor-Con), 20 MEQ PO DAILY Spironolactone (Aldactone), 25 MG PO DAILY Tamsulosin Hcl (Flomax), 0.4 MG PO DAILY Scheduled PRN Oxycodone Ir (Roxicodone Ir), 1-2 TAB PO Q4H PRN for Pain Physical Exam Vital Signs Date Time Temp Pulse Resp B/P (MAP) Pulse Ox O2 Delivery O2 Flow Rate FiO2 04/27/17 22:16 61 20 130/76 95 Room Air 04/27/17 21:05 82 20 135/77 95 Room Air 70 118/78 04/27/17 21:02 71 18 118/78 94 Room Air 04/27/17 21:01 66 14 135/77 94 Room Air 04/27/17 20:32 94 Room Air 04/27/17 20:32 36.7 62 20 121/96 95 Room Air 04/27/17 20:23 79 04/27/17 20:21 66 14 121/96 94 Room Air Physical Exam VITAL SIGNS - Vital signs and nursing notes were reviewed. Stable. GENERAL - 46 year old male appearing his stated age who is in no acute distress. Communicates well with provider and answers questions appropriately. SKIN - Without rashes. HEAD - NC/AT. EYES - Sclera anicteric. EARS - No deformities of external structures noted on gross examination bilaterally. NOSE - No epistaxis or purulent drainage noted. MOUTH/OROPHARYNX - Without perioral cyanosis. LUNGS - Chest wall symmetric without accessory muscle use, intercostals retractions, or central cyanosis. Normal vesicular breath sounds CTA B/L. No wheezes, rales, or rhonchi appreciated. CARDIAC - RRR with S1/S2. No murmur, rubs, or gallops appreciated. ABDOMEN - Abdominal contour normal without pulsations or visible masses. EXTREMITIES - No clubbing or peripheral cyanosis. NEUROLOGIC - Cranial nerves II through XII grossly intact. PSYCH - A&O, and cooperates fully with examiner. Pt is very pleasant and interacts well with examiner. Medical Decision & Procedures ER Provider Diagnostic Interpretation: CHEST ONE VIEW PORTABLE HISTORY: syncope, hx cardiomyopathy COMPARISON: Chest 11/28/2016. FINDINGS: The heart remains mildly enlarged. There are poststernotomy changes and left-sided pacemaker/defibrillator. The lungs are clear. No pleural effusions. No pneumothorax. No evidence for pulmonary edema. Low lung volumes. IMPRESSION: No significant change compared to the prior study. No acute process. Stable mild cardiomegaly. Electronically signed by: Eliazar Pinto M.D. 04/27/2017 9:35 PM Dictated Date/Time: 04/27/2017 9:34 PM Laboratory Results 04/27/17 19:50 Red Blood Count 5.35, Mean Corpuscular Volume 85.6, Mean Corpuscular Hemoglobin 30.3, Mean Corpuscular Hemoglobin Concent 35.4, Mean Platelet Volume 12.5, Neutrophils (%) (Auto) 73.5, Lymphocytes (%) (Auto) 15.2, Monocytes (%) (Auto) 7.8, Eosinophils (%) (Auto) 2.7, Basophils (%) (Auto) 0.6, Neutrophils # (Auto) 5.93, Lymphocytes # (Auto) 1.23, Monocytes # (Auto) 0.63, Eosinophils # (Auto) 0.22, Basophils # (Auto) 0.05 04/27/17 19:50 Test 04/27/17 19:50 04/27/17 22:20 White Blood Count 8.08 K/uL (4.8-10.8) Red Blood Count 5.35 M/uL (4.7-6.1) Hemoglobin 16.2 g/dL (14.0-18.0) Hematocrit 45.8 % (42-52) Mean Corpuscular Volume 85.6 fL (80-100) Mean Corpuscular Hemoglobin 30.3 pg (25-34) Mean Corpuscular Hemoglobin Concent 35.4 g/dl (32-36) Platelet Count 200 K/uL (130-400) Mean Platelet Volume 12.5 fL (7.4-10.4) Neutrophils (%) (Auto) 73.5 % Lymphocytes (%) (Auto) 15.2 % Monocytes (%) (Auto) 7.8 % Eosinophils (%) (Auto) 2.7 % Basophils (%) (Auto) 0.6 % Neutrophils # (Auto) 5.93 K/uL (1.4-6.5) Lymphocytes # (Auto) 1.23 K/uL (1.2-3.4) Monocytes # (Auto) 0.63 K/uL (0.11-0.59) Eosinophils # (Auto) 0.22 K/uL (0-0.5) Basophils # (Auto) 0.05 K/uL (0-0.2) RDW Standard Deviation 42.5 fL (36.4-46.3) RDW Coefficient of Variation 13.9 % (11.5-14.5) Immature Granulocyte % (Auto) 0.2 % Immature Granulocyte # (Auto) 0.02 K/uL (0.00-0.02) Prothrombin Time 10.7 SECONDS (9.0-12.0) Prothromb Time International Ratio 1.0 (0.9-1.1) Activated Partial Thromboplast Time 29.9 SECONDS (21.0-31.0) Partial Thromboplastin Ratio 1.2 Anion Gap 8.0 mmol/L (3-11) Est Creatinine Clear Calc Drug Dose 134.2 ml/min Estimated GFR () 93.5 Estimated GFR (Non- 80.6 BUN/Creatinine Ratio 22.2 (10-20) Calcium Level 8.8 mg/dl (8.5-10.1) Magnesium Level 2.0 mg/dl (1.8-2.4) Total Bilirubin 0.4 mg/dl (0.2-1) Aspartate Amino Transf (AST/SGOT) 30 U/L (15-37) Alanine Aminotransferase (ALT/SGPT) 38 U/L (12-78) Alkaline Phosphatase 77 U/L (45-117) Total Creatine Kinase 142 U/L (39-308) Creatine Kinase MB 4.4 ng/ml (0.5-3.6) Creatine Kinase MB Ratio 3.1 (0-3.0) Troponin I 0.069 ng/ml (0-0.045) Pro-B-Type Natriuretic Peptide 1121 pg/ml (0-450) Total Protein 7.0 gm/dl (6.4-8.2) Albumin 3.9 gm/dl (3.4-5.0) Globulin 3.1 gm/dl (2.5-4.0) Albumin/Globulin Ratio 1.2 (0.9-2) Thyroid Stimulating Hormone (TSH) 2.460 uIu/ml (0.300-4.500) Urine Color YELLOW Urine Appearance CLEAR (CLEAR) Urine pH 5.5 (4.5-7.5) Urine Specific [place] 1.027 (1.000-1.030) Urine Protein NEG (NEG) Urine Glucose (UA) NEG (NEG) Urine Ketones NEG (NEG) Urine Occult Blood NEG (NEG) Urine Nitrite NEG (NEG) Urine Bilirubin NEG (NEG) Urine Urobilinogen NEG (NEG) Urine Leukocyte Esterase NEG (NEG) Medications Administered Medications (Trade) Dose Ordered Sig/Ida Route Start Time Stop Time Status Last Admin Dose Admin Morphine Sulfate (MoRPHine SULFATE INJ) 4 mg NOW STAT IV 04/27/17 21:27 04/27/17 21:28 DC 04/27/17 22:16 4 MG Aspirin (Aspirin Chew) 243 mg NOW STAT PO 04/27/17 21:37 04/27/17 21:39 DC 04/27/17 22:14 243 MG Sodium Chloride 500 ml @ 999 mls/hr Q31M STAT IV 04/27/17 22:36 04/27/17 23:06 04/27/17 22:47 999 MLS/HR Medical Decision Patient was seen and evaluated as above. He presents to us today status post syncopal event. The patient does have a history of hypertrophic cardiomyopathy. Today he had a syncopal event while standing. This certainly sounds orthostatic or poor perfusion secondary to HOCM. Vital signs were obtained and he was not found to be numerically orthostatic but while attempting to perform these he did feel as if he was going to pass out hence standing vitals could not be obtained. EKG reveals a ventricular paced rhythm rate of 71 bpm. I did speak with the [employer] public relations representative regarding the patient's pacemaker/defibrillator and no events were noted. This again verify this is likely orthostatic. The patient did have elevated troponin however this does appear chronic, but the patient does have bilateral diffuse lower extremity edema, and the concern is that with his underlying history, the fluid overload he is now beginning as well as a concern for the orthostasis he will require close, and specific fluid resuscitation yet care as to not externally overload him. Case was discussed with the attending physician, and subsequently Dr. Ruiz. Thorough discussion was had, and no specific recommendations are noted at this time as it does appear the patient is on many modalities to help with his current ailments however I believe this staying in the hospital for his likely orthostasis and external fluid overload will be warranted. I then consulted with the hospitalist. Please refer to further documentation regarding his stay. In the evaluation treatment this patient following differential diagnoses entertained: Hypertrophic cause poor perfusion leading to syncope, myocardial infarction, PE, among others. Impression Primary Impression: Syncope Departure Information Dispostion Admitted as an inpatient Condition POOR Referrals Alfred Davis M.D. (PCP) Patient Instructions My [facility]
[2017-04-27 20:48] LABS: BASO % 0.6 %; BASO ABS # 0.05 K/uL (0-0.2); EOS % 2.7 %; EOS ABS # 0.22 K/uL (0-0.5); HEMATOCRIT 45.8 % (42-52); HEMOGLOBIN 16.2 g/dL (14.0-18.0); IG# 0.02 K/uL (0.00-0.02); LYMPH % 15.2 %; LYMPH ABS # 1.23 K/uL (1.2-3.4); MEAN CELL VOLUME 85.6 fL (80-100); MEAN CORPUSCULAR HEMOGLOBIN 30.3 pg (25-34); MEAN CORPUSCULAR HGB CONC 35.4 g/dl (32-36); MEAN PLATELET VOLUME 12.5 fL (7.4-10.4); MONO % 7.8 %; MONO ABS # 0.63 K/uL (0.11-0.59); NEUT % 73.5 %; NEUT ABS # 5.93 K/uL (1.4-6.5); PLATELET COUNT 200 K/uL (130-400); RED CELL DISTRIBUTION WIDTH CV 13.9 % (11.5-14.5); RED CELL DISTRIBUTION WIDTH SD 42.5 fL (36.4-46.3); WHITE BLOOD COUNT 8.08 K/uL (4.8-10.8)
[2017-04-27 20:57] LABS: ALBUMIN 3.9 gm/dl (3.4-5.0); CALCIUM 8.8 mg/dl (8.5-10.1); CREATININE 1.1 mg/dl (0.60-1.40); POTASSIUM 4.1 mmol/L (3.5-5.1)
[2017-04-27 20:58] LABS: PTT PATIENT 29.9 SECONDS (21.0-31.0)
[2017-04-27 21:14] LABS: CKMB 4.4 ng/ml (0.5-3.6)
[2017-04-27] MEDS ORDERED: MoRPHine SULFATE 4 MG/ML 1 ML CARP\\VIAL IV STA (21:27)
[2017-04-27] MEDS ORDERED: ASPIRIN 81 MG CHEW PO STA (21:37)
--- NOTE | 2017-04-27 21:37 | DIAGNOSTIC IMAGING REPORT ---
CHEST ONE VIEW PORTABLE HISTORY: syncope, hx cardiomyopathy COMPARISON: Chest 11/28/2016. FINDINGS: The heart remains mildly enlarged. There are poststernotomy changes and left-sided pacemaker/defibrillator. The lungs are clear. No pleural effusions. No pneumothorax. No evidence for pulmonary edema. Low lung volumes. IMPRESSION: No significant change compared to the prior study. No acute process. Stable mild cardiomegaly. Electronically signed by: Eliazar Pinto M.D. 04/27/2017 9:35 PM Dictated Date/Time: 04/27/2017 9:34 PM
--- NOTE | 2017-04-27 22:23 | History and Physical ---
History & Physical Date & Time of Service: Apr 27, 2017 at 22:18 Chief Complaint: Syncope Primary Care Physician: Alfred Davis M.D. History of Present Illness Source: patient Unfortunate 46 y/o M w/Hx hypertrophic, obstructive cardiomyopathy, HTN, diastolic CHF, AICD/pacer placement, MEENU, obesity. He became lightheaded, shaky and then suffered a syncopal episode in his bathroom after bending over and getting back up. He continued to feel poorly in a standing position and presented to the ER for evaluation. A pacer interrogation did not reveal any abnormalities. He was unable to comply with orthostatics in the ER as he became markedly lightheaded sitting up or standing. He denies CP, SOB, N/V, diaphoresis. Initial labs revealed a (+) troponin, however, this is chronic and improved compared to baseline. Past Medical/Surgical History Medical Problems: 1) HTN 2) Hypertrophic cardiomyopathy 3) Myocardial infarction 4) Complete heart block - pacer 5) MEENU 6) Cervical spine fracture 7) Grade 1 diastolic dysfunction with preserved EF - echo 11/19 Surgical history: 1) Appendectomy 2) Open heart surgery 3) ICD placed 2011 due to cardiomyopathy 4) Pacemaker 4) Septal myectomy and MV repair 06/21 Family History Cancer 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 Heart disease Social History Smoking Status: Former Smoker Drug Use: none Marital Status: Housing status: lives with family Occupational Status: employed Immunizations History of Influenza Vaccine: Yes History of Tetanus Vaccine?: Yes History of Pneumococcal: Yes History of Hepatitis B Vaccine: No Multi-Drug Resistant Organisms History of MDRO: No Allergies Coded Allergies: Erythromycin (Unverified Allergy, Mild, UNSURE, 04/27/17) Home Medications Scheduled Aspirin (Aspirin Ec), 81 MG PO DAILY Fluticasone Furoate-Vilanterol (Breo Ellipta 200-25 Mcg/INH), 1 PUFF INH DAILY Furosemide (Lasix), 100 MG PO BID Metolazone (Zaroxolyn), 2.5 MG PO Q2D Metoprolol Tartrate (Lopressor) (Lopressor), 12.5 MG PO BID Potassium Ext Rel (Klor-Con), 20 MEQ PO DAILY Spironolactone (Aldactone), 25 MG PO DAILY Tamsulosin Hcl (Flomax), 0.4 MG PO DAILY Scheduled PRN Oxycodone Ir (Roxicodone Ir), 1-2 TAB PO Q4H PRN for Pain Review of Systems Constitutional: + problem reported (Describes an episode of shaking), No fever , No chills, No sweats Eyes: No worsening of vision ENT: No hearing loss, No nasal symptoms Respiratory: No cough, No wheezing Cardiovascular: No chest pain, No orthopnea, No PND Abdomen: No pain, No nausea, No vomiting Musculoskeletal: No joint pain Genitourinary - Male: No hematuria, No dysuria, No urinary frequency Neurologic: No memory loss, No paralysis, No weakness Psychiatric: No depression symptoms Endocrine: No fatigue Hematologic / Lymphatic: No abnormal bleeding/bruising Integumentary: No rash Allergic / Immunologic: No environmental allergies Physical Exam Vital Signs Date Time Temp Pulse Resp B/P (MAP) Pulse Ox O2 Delivery O2 Flow Rate FiO2 04/27/17 21:05 82 20 135/77 95 Room Air 70 118/78 04/27/17 20:32 94 Room Air 04/27/17 20:32 36.7 62 20 121/96 95 Room Air 04/27/17 20:23 79 General Appearance: WD/WN, no apparent distress, + pertinent finding (Morbidly obese, middle-aged male in no distress) Head: normocephalic Eyes: normal inspection ENT: normal ENT inspection, pharynx normal Neck: supple, + pertinent finding (Cannot assess JVD due to obesity) Respiratory/Chest: chest non-tender Cardiovascular: regular rate, rhythm, no gallop, + systolic murmur Abdomen/GI: normal bowel sounds, non tender, soft Extremities/Musculoskelatal: no calf tenderness, normal capillary refill, + pedal edema Neurologic/Psych: chrome cleaner II-XII nml as tested, no motor/sensory deficits, alert, oriented x 3 Diagnostics Laboratory Results Results Past 24 Hours Test 04/27/17 19:50 04/27/17 20:32 Range/Units White Blood Count 8.08 4.8-10.8 K/uL Red Blood Count 5.35 4.7-6.1 M/uL Hemoglobin 16.2 14.0-18.0 g/dL Hematocrit 45.8 42-52 % Mean Corpuscular Volume 85.6 80-100 fL Mean Corpuscular Hemoglobin 30.3 25-34 pg Mean Corpuscular Hemoglobin Concent 35.4 32-36 g/dl Platelet Count 200 130-400 K/uL Mean Platelet Volume 12.5 7.4-10.4 fL Neutrophils (%) (Auto) 73.5 % Lymphocytes (%) (Auto) 15.2 % Monocytes (%) (Auto) 7.8 % Eosinophils (%) (Auto) 2.7 % Basophils (%) (Auto) 0.6 % Neutrophils # (Auto) 5.93 1.4-6.5 K/uL Lymphocytes # (Auto) 1.23 1.2-3.4 K/uL Monocytes # (Auto) 0.63 0.11-0.59 K/uL Eosinophils # (Auto) 0.22 0-0.5 K/uL Basophils # (Auto) 0.05 0-0.2 K/uL RDW Standard Deviation 42.5 36.4-46.3 fL RDW Coefficient of Variation 13.9 11.5-14.5 % Immature Granulocyte % (Auto) 0.2 % Immature Granulocyte # (Auto) 0.02 0.00-0.02 K/uL Prothrombin Time 10.7 9.0-12.0 SECONDS Prothromb Time International Ratio 1.0 0.9-1.1 Activated Partial Thromboplast Time 29.9 21.0-31.0 SECONDS Partial Thromboplastin Ratio 1.2 Sodium Level 139 136-145 mmol/L Potassium Level 4.1 3.5-5.1 mmol/L Chloride Level 105 98-107 mmol/L Carbon Dioxide Level 26 21-32 mmol/L Anion Gap 8.0 3-11 mmol/L Blood Urea Nitrogen 24 7-18 mg/dl Creatinine 1.10 0.60-1.40 mg/dl Est Creatinine Clear Calc Drug Dose 134.2 ml/min Estimated GFR () 93.5 Estimated GFR (Non- 80.6 BUN/Creatinine Ratio 22.2 10-20 Random Glucose 114 70-99 mg/dl Calcium Level 8.8 8.5-10.1 mg/dl Magnesium Level 2.0 1.8-2.4 mg/dl Total Bilirubin 0.4 0.2-1 mg/dl Aspartate Amino Transf (AST/SGOT) 30 15-37 U/L Alanine Aminotransferase (ALT/SGPT) 38 12-78 U/L Alkaline Phosphatase 77 45-117 U/L Total Creatine Kinase 142 39-308 U/L Creatine Kinase MB 4.4 0.5-3.6 ng/ml Creatine Kinase MB Ratio 3.1 0-3.0 Troponin I 0.069 0-0.045 ng/ml Pro-B-Type Natriuretic Peptide 1121 0-450 pg/ml Total Protein 7.0 6.4-8.2 gm/dl Albumin 3.9 3.4-5.0 gm/dl Globulin 3.1 2.5-4.0 gm/dl Albumin/Globulin Ratio 1.2 0.9-2 Thyroid Stimulating Hormone (TSH) 2.460 0.300-4.500 uIu/ml Impression Assessment and Plan Unfortunate 46 y/o M w/Hx hypertrophic, obstructive cardiomyopathy, HTN, diastolic CHF, AICD/pacer placement, MEENU, obesity. He became lightheaded, shaky and then suffered a syncopal episode in his bathroom after bending over and getting back up. He continued to feel poorly in a standing position and presented to the ER for evaluation. A pacer interrogation did not reveal any abnormalities. He was unable to comply with orthostatics in the ER as he became markedly lightheaded sitting up or standing. He denies CP, SOB, N/V, diaphoresis. Initial labs revealed a (+) troponin, however, this is chronic and improved compared to baseline. 1) Syncope - although this is not related to an arrhythmia, it may still be cardiogenic considering his Hx. More likely he is overdiuresed which may be harmful in this individual. He is on a high dose of Lasix and has a tendency to develop fluid overload quickly. We will provide him with slow IVF overnight , measure orthostatics AM and decide on Lasix dosing based on his response and vitals. We have contacted his rail setter. He may need a reduction in his Lasix dose or eliminate Zaroxolyn on a scheduled basis and may have better results dosing primarily on a sliding scale. 2) Cardiomyopathy - we will continue his B pipe and Aldactone - as mentioned - Lasix is temporarily held. 3) MEENU - CPAP provided 4) HTN - cont Metoprolol, Aldactone 5) Diastolic CHF - as per item 1 - likely dehydrated at present - clinical volume assessment is difficult due to pt's habitus. 6) Elevated trop - is chronic - we will trend considering his symptoms Full code - Heparin prophylaxis Total time for this admit including review of labs, meds, imaging - discussion with pt and ER attending - 38 min Level of Care Telemetry Resuscitation Status FULL RESUSCITATION VTE Prophylaxis Given or contraindicated: Enoxaparin (Lovenox)SQ
[2017-04-27] MEDS ORDERED: SODIUM CHLORIDE 0.9% 500ML 500 ML IV STA (22:36)
[2017-04-27] MEDS ORDERED: MAGNESIUM HYDROXIDE SUSP 30 ML UDC PO PRN (23:30)
[2017-04-27] MEDS ORDERED: ALUMINUM/MAGNESIUM/SIMETH (MAALOX MAX) 30 ML UDC PO PRN (23:30)
[2017-04-27] MEDS ORDERED: ONDANSETRON INJ 2 MG/ML 2 ML VIAL IV PRN (23:30)
[2017-04-27] MEDS ORDERED: POLYETHYLENE (MIRALAX) 17 GM PACK PO PRN (23:30)
[2017-04-28] VITALS (14 sets, daily range): BP systolic 96–136; BP diastolic 56–86; PULSE 60–81; TEMP 36.4–36.7; O2SAT 94–98; Ht 190.5 cm; Wt 150.7 kg
--- NOTE | 2017-04-28 00:14 | NUR ---
A/ID: PT ARRIVES FROM ED TO TELEMETRY 238-1 W/DX OF SYNCOPE TO [facility]. CARDIOLOGY ON CONSULT. AMBULATES WITH 1 STAFF ASSIST FROM LITER TO BED. A/O X 4 AND REPORTS 7/10 LEFT HIP PAIN AND REQUESTS PAIN MEDICATION. CARBON CLEANER APPLIED REVEALS PACED RHYTHM AND VS ACCEPTABLE. LUNGS CTA O2 SATS MID 90'S ON RA. ANTICIPATE D/C TO HOME. ORIENTED TO ROOM, UNIT AND CALL RAMIRES SYSTEM. QUESTIONS ENCOURAGED. PROVIDED WITH BOWL OF CEREAL. FALL PRECAUTIONS IMPLEMENTED. CALL RAMIRES IN REACH. PRIMARY NURSE GABY ASSUMES CARE OF PATIENT.
[2017-04-28] MEDS ORDERED: IV FLUIDS COMPLETED PRN (01:00)
[2017-04-28] MEDS ORDERED: SODIUM CHLORIDE 0.9% 500ML 500 ML IV SCH (01:30)
[2017-04-28] MEDS: OXYCODONE HCL IR 5 MG TAB (IMMEDIATE RELEASE) PO PRN ×3 (01:53→19:32)
--- NOTE | 2017-04-28 04:00 | NUR ---
Pt reassessment unchanged. VSS paced on monitor on home CPAP settings. Sleeping in bed. Easily arousable. Denies chest pain or SOB at this time. Needs addressed and call barkley in reach.
[2017-04-28] MEDS: HEPARIN SOD 5000 UNIT/0.5 ML CARP SQ SCH ×3 (06:12→21:01)
[2017-04-28] MEDS ORDERED: METOLAZONE 2.5 MG TAB PO SCH (07:00)
[2017-04-28] MEDS: ASPIRIN 81 MG ECTAB PO SCH (08:04)
[2017-04-28] MEDS: TAMSULOSIN HCL 0.4 MG CAP PO SCH (08:04)
[2017-04-28] MEDS: SPIRONOLACTONE 25 MG TAB PO SCH (08:04)
--- NOTE | 2017-04-28 08:41 | Hospitalist Progress Note ---
Hospitalist Progress Note Date of Service Apr 28, 2017. (Ariana Carlin PA-C) Subjective Pt evaluation today including: conversation w/ patient, physical exam, chart review, lab review, review of studies Pain: None PO Intake: Good Voiding: no voiding problems The patient was seen and examined this morning. Pt reports still feeling lightheaded and dizzy when he stood up to use the urinal. He denies syncopal prodrome at that point and sx quickly resolved with sitting down. He has not yet been up to ambulate about the room, nor is he sure he'd be able to do this at all. The patient notes that yesterday whenever he fell he must of hit his left hip and is having moderate pain and is sore in that leg. He is having slight numbness down the posterior aspect of his leg and his toes. He has been eating and drinking fine. The patient uses CPAP overnight as he normally does at home without any difficulty. The patient notes his home dose of Lasix is 100 mg twice a day, and takes a potassium supplement. He notices that he does have occasional muscle cramping and that it varies as far as location. Patient follows with Dr. Hogan as an outpatient with cardiology. Additional Comments: Constitutional: No fever, sweats or chills Eyes: No diplopia, no worsening or blurred vision, no visual changes upon standing ENT: normal hearing, no trouble swallowing Respiratory: No cough, sputum, dyspnea at rest or on exertion Cardiovascular: No chest pain, tightness or palpitations Abdomen: No pain, nausea, vomiting, diarrhea or constipation Musculoskeletal: No joint pain, calf pain, swelling Neurologic: Positive for dizziness, weakness, and lightheadedness upon standing. no numbness or tingling no balance problems otherwise Psychiatric: No anxiety or depression Skin: No rash or itch (Arinaa Carlin PA-C) Objective Vital Signs Date Time Temp Pulse Resp B/P (MAP) Pulse Ox O2 Delivery O2 Flow Rate FiO2 04/28/17 07:34 36.5 61 20 96/56 (69) 97 Room Air 04/28/17 04:00 96 Room Air 04/28/17 03:07 36.4 63 16 110/72 (85) 96 Room Air 04/28/17 01:45 81 98 21 04/28/17 01:14 36.4 67 24 131/82 94 Room Air 04/28/17 00:31 61 16 115/66 94 Room Air 04/28/17 00:01 62 14 108/63 94 Room Air 04/27/17 23:44 60 20 114/54 96 Room Air 04/27/17 22:16 61 20 130/76 95 Room Air 04/27/17 21:05 82 20 135/77 95 Room Air 70 118/78 04/27/17 21:02 71 18 118/78 94 Room Air 04/27/17 21:01 66 14 135/77 94 Room Air 04/27/17 20:32 94 Room Air 04/27/17 20:32 36.7 62 20 121/96 95 Room Air 04/27/17 20:23 79 04/27/17 20:21 66 14 121/96 94 Room Air (Ariana Carlin PA-C) Physical Exam Notes: General: awake, alert, no apparent distress, obese, lying flat in bed initially wearing CPAP. Head: Normocephalic, atraumatic ENT: PERRL, EOMI, no pharyngeal exudate, mucous membranes moist Chest: Clear to auscultation, on room air, no adventitious breath sounds Cardiac: Regular rate and rhythm, heart rate = 60, no murmur, normal peripheral pulses, good capillary refill, volume status difficult to assess due to body habitus Abdominal: NABS x 4 quadrants, soft, nontender to palpation, no rebound, guarding or tenderness Extremities: Normal inspection, no peripheral edema or erythema, calfs nontender to palpation. Left hip pain, no ecchymosis, small pinpoint lesion where the skin broke but does not appear infected in any way. Psych: Normal mood and affect Neuro: AAO x 3, speech is clear, no peripheral sensory deficits (Ariana Carlin, LUCIUSC) Laboratory Results Last 24 Hours Test 04/27/17 19:50 04/27/17 22:20 04/28/17 03:41 04/28/17 07:42 White Blood Count 8.08 K/uL Red Blood Count 5.35 M/uL Hemoglobin 16.2 g/dL Hematocrit 45.8 % Mean Corpuscular Volume 85.6 fL Mean Corpuscular Hemoglobin 30.3 pg Mean Corpuscular Hemoglobin Concent 35.4 g/dl Platelet Count 200 K/uL Mean Platelet Volume 12.5 fL Neutrophils (%) (Auto) 73.5 % Lymphocytes (%) (Auto) 15.2 % Monocytes (%) (Auto) 7.8 % Eosinophils (%) (Auto) 2.7 % Basophils (%) (Auto) 0.6 % Neutrophils # (Auto) 5.93 K/uL Lymphocytes # (Auto) 1.23 K/uL Monocytes # (Auto) 0.63 K/uL Eosinophils # (Auto) 0.22 K/uL Basophils # (Auto) 0.05 K/uL RDW Standard Deviation 42.5 fL RDW Coefficient of Variation 13.9 % Immature Granulocyte % (Auto) 0.2 % Immature Granulocyte # (Auto) 0.02 K/uL Prothrombin Time 10.7 SECONDS Prothromb Time International Ratio 1.0 Activated Partial Thromboplast Time 29.9 SECONDS Partial Thromboplastin Ratio 1.2 Sodium Level 139 mmol/L Potassium Level 4.1 mmol/L Chloride Level 105 mmol/L Carbon Dioxide Level 26 mmol/L Anion Gap 8.0 mmol/L Blood Urea Nitrogen 24 mg/dl Creatinine 1.10 mg/dl Est Creatinine Clear Calc Drug Dose 134.2 ml/min Estimated GFR () 93.5 Estimated GFR (Non- 80.6 BUN/Creatinine Ratio 22.2 Random Glucose 114 mg/dl Calcium Level 8.8 mg/dl Magnesium Level 2.0 mg/dl Total Bilirubin 0.4 mg/dl Aspartate Amino Transf (AST/SGOT) 30 U/L Alanine Aminotransferase (ALT/SGPT) 38 U/L Alkaline Phosphatase 77 U/L Total Creatine Kinase 142 U/L Creatine Kinase MB 4.4 ng/ml Creatine Kinase MB Ratio 3.1 Troponin I 0.069 ng/ml 0.076 ng/ml 0.078 ng/ml Pro-B-Type Natriuretic Peptide 1121 pg/ml Total Protein 7.0 gm/dl Albumin 3.9 gm/dl Globulin 3.1 gm/dl Albumin/Globulin Ratio 1.2 Thyroid Stimulating Hormone (TSH) 2.460 uIu/ml Urine Color YELLOW Urine Appearance CLEAR Urine pH 5.5 Urine Specific [place] 1.027 Urine Protein NEG Urine Glucose (UA) NEG Urine Ketones NEG Urine Occult Blood NEG Urine Nitrite NEG Urine Bilirubin NEG Urine Urobilinogen NEG Urine Leukocyte Esterase NEG (Ariana Carlin PA-C) Assessment and Plan Unfortunate 46 y/o M w/Hx hypertrophic, obstructive cardiomyopathy, HTN, diastolic CHF, AICD/pacer placement, MEENU, obesity who presented with an episode of lightheadedness and syncope. A pacer interrogation did not reveal any abnormalities. He was unable to comply with orthostatics in the ER as he became markedly lightheaded sitting up or standing. Initial labs revealed a (+ ) troponin, however, this is chronic and improved compared to baseline. Syncope - Pacemaker interrogation negative- although this is not related to an arrhythmia, it may still be cardiogenic considering his Hx. - Likely that he is overdiuresed due to high dose of Lasix - slow IVF overnight, now off. Follow orthostatics every shift and decide on Lasix dosing based on his response and vitals. - Outpatient dye mixer has been contacted - He may need a reduction in his Lasix dose or eliminate Zaroxolyn on a scheduled basis and may have better results dosing primarily on a sliding scale. - Follow potassium with high Lasix dosage and positive or review of systems with muscle cramping Diastolic CHF Cardiomyopathy - we will continue his B pipe and Aldactone - as mentioned - Lasix is temporarily held. - Pt likely dehydrated - Last echo completed 11/29/[address] Hogan as an outpatient, was recently seen in the office within the past month. Patient will need close follow-up upon discharge within 1 week. - Elevated trop - is chronic - trend considering his symptoms- 2nd set is essentially stable. Awaiting the third later this afternoon. MEENU - CPAP provided HTN - cont Metoprolol, Aldactone DVT ppx: heparin subq CODE STATUS: Full code Disposition: Patient from home, possible discharge within 24 hours pending symptom improvement. (Ariana Carlin PA-C) I have seen, performed a history and examined patient. Patient reports that his right trochanetric region is bothering him as he fell on that side when he had the syncopal episode. Patient reports still feeling dizzy when siting up. I believe this is likely from overdiuresis. I discussed case with cardiology. Will continue with PO fluids and will hold diuretics. will keep patient in hospital as he is very symptomatic. (Hesham Robles M.D.)
--- NOTE | 2017-04-28 08:48 | NUR ---
A/ID: Assessment completed, see EMR. Alert and oriented X4. VSS. Denies CP or SOB. Lungs clear throughout on room air. Bowel sounds WNL. Voiding. + pedal pulses with non-pitting edema noted to BLE. Tolerating diet. OOB with minimal assist of 1. Self positioning. Call barkley within reach. Verbalizes no needs at this time. Plan form home upon discharge at this time.
[2017-04-28] MEDS: METOPROLOL TARTRATE 25 MG TAB PO SCH ×2 (09:00→21:01)
[2017-04-28] MEDS ORDERED: POTASSIUM CHLORIDE 20 MEQ TABCR PO SCH (09:00)
[2017-04-28] MEDS ORDERED: FUROSEMIDE 40 MG TAB PO SCH (09:00)
--- NOTE | 2017-04-28 12:23 | NUR ---
A: patient resting in room. Denies CP or SOB Sleeping throughout day with cpap on. Tolerating diet. Verbalizes no needs at this time.
--- NOTE | 2017-04-28 14:57 | CARDIOLOGY CONSULTATION ---
DATE OF CONSULTATION: 04/28/2017 REQUESTING PHYSICIAN: Bran Franco. GEOPHYSICAL DATA TECHNICIAN: Dinesh Ruiz D.O., [facility] Cardiology for Dr. Isaías Hogan, who is the patient's primary poison information specialist. REASON FOR CONSULTATION: Lightheadedness and dizziness and orthostatic symptoms. Dear Dr. Franco, Thank you for requesting cardiology consultation on Holl[place] with regards to his lightheadedness, dizziness and syncopal episode. As you know, he has a complex past medical history, which will be reviewed below. He underwent septal myomectomy in December [address] [facility] for severe hypertrophic cardiomyopathy. He has been maintained on a very good medical regimen, especially trying to deal with his shortness of breath and heart failure symptoms. He has been on Aldactone 25 mg daily, along with furosemide 100 mg b.i.d. and he takes Zaroxolyn 2.5 mg every other day. He notes with the Zaroxolyn, he has a rather significant diuresis and has significant cramping afterwards. He notes that he had been in his usual state of health, eating and drinking on a regular basis. He had a normal breakfast yesterday morning. He notes later in the evening after getting out of the shower, he went to bend over to pick something up and stood up, he had some mild lightheadedness and dizziness. When he went to turn, he actually felt like there were curtains coming in over his eyes, everything turned grayish black and he went to lean on something, but could not see and then ended up falling over the bathtub. He awoke. He notes he had persistent lightheadedness and dizziness after that episode, again he describes it as dizziness and not room spinning to suggest vertigo. He also notes he does felt horrible and given the fact that he had previously been stable, he came to the Emergency Room for further evaluation. Although his device interrogation is not present, there were no ventricular arrhythmias noted on the device and the device was functioning normally as he has a single-chamber defibrillator. He denies any chest pain, chest pressure, or chest heaviness. He has chronic shortness of breath, which is stable. He has chronic mild lower extremity edema, which has been stable. He notes his weights have been stable at home. He sleeps with CPAP on a regular basis. Here today, after receiving 500 mL of IV fluid, and holding his diuretics, just sitting up in bed, he continues to have mild orthostatic symptoms with blood pressures as low as 96/56. The rest of review of systems is otherwise negative. PAST MEDICAL HISTORY: 1. Hypertrophic cardiomyopathy. 2. Status post surgical septal myomectomy at [facility] in December 2015. Mitral valve repair with an 8-mm Danitza stitch. 3. Complete heart block after surgery. 4. Single-chamber defibrillator VVI paced. 5. Obstructive sleep apnea, tolerating CPAP. 6. Echocardiogram in November 2016, EF of 60%-65%, severe asymmetric hypertrophy of the anterior septum up to 3.1 cm. Elevated left atrial pressures. No evidence of dynamic LVOT obstruction. Normal RV function. 7. Cervical spine fracture. 8. History of appendectomy. 9. Cardiac catheterization in June 2015. No evidence of coronary artery disease. FAMILY HISTORY: Positive for cancer, diabetes, and heart disease. There is no known history of hypertrophic cardiomyopathy or sudden cardiac . SOCIAL HISTORY: He is a former smoker, rarely drinks alcohol. He is . 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 ALLERGIES: ERYTHROMYCIN. MEDICATIONS: Reviewed in detail. PHYSICAL EXAMINATION: GENERAL: He is awake, alert, and oriented x3. He is in no acute distress. VITAL SIGNS: His heart rate is 62, respirations 20, blood pressure 133/83. His sats 96% on room air. HEENT: 2+ carotid upstrokes. No evidence of carotid bruits. Jugular venous pressure cannot be assessed due to his neck size. His sclerae are anicteric. His hearing is normal. LUNGS: Clear to auscultation bilaterally. No rales, rhonchi or wheezing. HEART: Regular rate and rhythm. No appreciable murmurs, rubs or gallops. ABDOMEN: Soft, nontender, nondistended, positive bowel sounds. EXTREMITIES: No clubbing or cyanosis. Mild bilateral lower extremity edema, worse on the right compared to the left. PSYCHIATRIC: His affect appeared appropriate. DIAGNOSTIC STUDIES: Discussed above. LABORATORY STUDIES: Troponin 0.078 and he is known to have chronic troponin elevations. BNP of 1121, BUN of 24, creatinine of 1.1 with a sodium of 139, potassium 4.1, and a bicarbonate of 26, hemoglobin is 16.2 and a platelet count of 200. Chest x-ray, no acute process, stable cardiomegaly. IMPRESSION: 1. Lightheadedness and dizziness, which sounds orthostatic in nature. 2. Normal implantable cardioverter-defibrillator interrogation without evidence of any ventricular arrhythmias. 3. As an outpatient on high-dose diuretics including spironolactone 25 mg daily, Lasix 100 mg b.i.d., and Zaroxolyn 2.5 mg every other day. 4. History of severe hypertrophic cardiomyopathy status post septal myomectomy and repair of the mitral valve with an Danitza stitch in December 2015. 5. No coronary artery disease preoperatively. 6. Echocardiogram in December 2016 with normal left ventricular function, but still with severe septal hypertrophy. As discussed with the hospitalist service, I believe this is all related to over-diuresis. He received 500 mL of saline. At this point, I would allow him to equilibrate on his own. I discontinued his Zaroxolyn and his Lasix is currently on hold. If you look at his BUN to creatinine ratio, he is prerenal. I would encourage him to drink fluids. He has had small amount of urine output while he had been here and it looks very concentrated. At this point, there is no room to increase his beta blockers. If he remains hypotensive, then I would recommend repeating his echocardiogram. I did review his monitor since he has been here and there had been no ventricular arrhythmias. He is chronically RV paced with AV dissociation (in NSR with no A lead) We will continue to follow with you. SAUNDRA
--- NOTE | 2017-04-28 16:09 | NUR ---
A: patient resting in room. Denies CP or SOB Sleeping throughout day with cpap on. Tolerating diet. Verbalizes no needs at this time.
--- NOTE | 2017-04-28 20:12 | NUR ---
Pt AAOx4 in bed with complaints of left hip pain not relieved with lidoderm patch. PRN meds given per orders with limited affect. VSS in paced rhythm on RA. CPAP at bedside for at night while asleep. Denies chest pain and SOB. Needs addressed and call barkley in reach.
[2017-04-29] VITALS (11 sets, daily range): BP systolic 105–132; BP diastolic 63–81; PULSE 60–68; TEMP 36.3–36.8; O2SAT 94–98
--- NOTE | 2017-04-29 00:14 | NUR ---
Pt reassessment unchanged. Resting in bed on CPAP. VSS. Needs addressed and call barkley in reach.
--- NOTE | 2017-04-29 04:00 | NUR ---
Pt in bed resting with VSS. Reassessment unchanged. Needs addressed and call barkley in reach.
[2017-04-29] MEDS: HEPARIN SOD 5000 UNIT/0.5 ML CARP SQ SCH ×3 (06:13→21:11)
[2017-04-29 06:50] LABS: HEMATOCRIT 43.5 % (42-52); HEMOGLOBIN 14.8 g/dL (14.0-18.0); MEAN CELL VOLUME 87.5 fL (80-100); MEAN CORPUSCULAR HEMOGLOBIN 29.8 pg (25-34); PLATELET COUNT 160 K/uL (130-400); RED CELL DISTRIBUTION WIDTH CV 13.8 % (11.5-14.5); WHITE BLOOD COUNT 5.32 K/uL (4.8-10.8)
[2017-04-29 07:23] LABS: CALCIUM 8.5 mg/dl (8.5-10.1); CREATININE 1.09 mg/dl (0.60-1.40); POTASSIUM 4.1 mmol/L (3.5-5.1)
[2017-04-29] MEDS ORDERED: COUGH DROP (SUGAR FREE) LOZ 24 LOZ/1 BOX ONE (07:54)
[2017-04-29] MEDS: MoRPHine SULFATE 2 MG/ML CARP IV PRN ×2 (07:58→13:43)
[2017-04-29] MEDS: LIDODERM (LIDOCAINE) PATCH 5% TD SCH (08:00)
[2017-04-29] MEDS ORDERED: NURSING VERBAL MED ORDER ONE (08:00)
[2017-04-29] MEDS: TAMSULOSIN HCL 0.4 MG CAP PO SCH (08:01)
[2017-04-29] MEDS: ASPIRIN 81 MG ECTAB PO SCH (08:01)
[2017-04-29] MEDS: METOPROLOL TARTRATE 25 MG TAB PO SCH ×2 (08:02→21:12)
[2017-04-29] MEDS: SPIRONOLACTONE 25 MG TAB PO SCH (08:02)
[2017-04-29] MEDS ORDERED: COUGH DROP (SUGAR FREE) LOZ 24 LOZ/1 BOX PO PRN (08:15)
[2017-04-29] MEDS: OXYCODONE HCL IR 5 MG TAB (IMMEDIATE RELEASE) PO PRN ×3 (08:59→21:12)
--- NOTE | 2017-04-29 09:04 | NUR ---
A/ID; A/OX4. Still c/o lightheadedness with sitting and standing. Ortho b/p's are neg. denies change in vision, ringing in the ears, chest pain, pain, and sob. paced on monitor. c/o of right hip pain from falling in shower of 01/13. medicated per order. Will continue to monitor. call ball within reach.
--- NOTE | 2017-04-29 09:47 | NUR ---
Jolly Olvera was in rounding. New orders noted.
--- NOTE | 2017-04-29 09:47 | Discharge Instructions ---
Discharge Instructions Date of Service Apr 29, 2017. Admission Reason for Admission: Syncope Discharge Discharge Diagnosis / Problem: Syncope secondary to over-diuresis/dehydration Discharge Goals Goal(s): Decrease discomfort, Improve function, Increase independence, Improve disease control Activity Recommendations Activity Limitations: resume your previous activity Lifting Limitations: gradually increase as tolerated Exercise/Sports Limitations: gradually increase as tolerated May Resume Sexual Activity: when tolerated Shower/Bathe: no limitations Driving or Machine Use: no limitations . Instructions / Follow-Up Instructions / Follow-Up You were admitted to [facility] with syncope and diagnosed with the same secondary to over-diuresis/dehydration. During your stay here you were treated with intravenous fluids, supportive care , and your lasix was held during admission. Your dizziness and lightheadedness improved. Medications: Continue taking Lasix 100 mg twice daily at home upon discharge with the first dose being tomorrow morning, 04/30. Stop taking Zaroxolyn. Continue taking all other medications as prescribed. Appointments: Follow up with your Primary Care Provider within 1 week. Follow up with cardiology within 1-2 weeks. Current Hospital Diet Patient's current hospital diet: AHA Diet (Heart Healthy), Low Sodium Diet (2gm Na) Discharge Diet Recommended Diet: AHA Diet (Heart Healthy), Low Sodium Diet (2gm Na) Pending Studies Studies pending at discharge: no Medical Emergencies . Who to Call and When: Medical Emergencies: If at any time you feel your situation is an emergency, please call 911 immediately. . Non-Emergent Contact Non-Emergency issues call your: Primary Care Provider, Optical Scientist Call Non-Emergent contact if: you have a fever, temperature is above 100.5, your pain is not controlled, your pain is worsening, your pain is unusual for you, your pain is concerning you, you have any medication questions other concerns with your health. Call 911 or go directly to the Emergency Department if you experience any of the following: Chest pain, chest tightness, shortness of breath, abdominal pain , lightheadedness, dizziness, gastrointestinal bleeding, or have any other concerns regarding your health. . Past History Medical & Surgical History: (1) Syncope (2) Acute on chronic diastolic (congestive) heart failure (3) Dyslipidemia (4) Elevated troponin . "Provider Documentation" section prepared by Jolly Carlin. . VTE Core Measure Inpt VTE Proph given/why not?: Enoxaparin (Lovenox)SQ
--- NOTE | 2017-04-29 10:18 | Cardiology Follow-Up ---
Subjective General Date of Service: Apr 29, 2017. Pt evaluation today including: conversation w/ patient, chart review, lab review, review of studies History of Present Illness The patient is a 46 year old male Allergies Coded Allergies: Erythromycin (Unverified Allergy, Mild, UNSURE, 04/27/17) Social History Smoking Status: Never Smoker Hx Tobacco Use In Past Year?: Yes Hx Alcohol Use - Type And Amou: Yes (RARE BEER) Hx Substance Use - Type And Am: No Problem List Medical Problems: (1) Cardiomyopathy Status: Acute (2) CHF (congestive heart failure) Status: Acute (3) Elevated blood pressure reading Status: Acute (4) Exertional dyspnea Status: Acute (5) Fluid overload Status: Acute (6) Heart failure Status: Acute (7) History of CHF (congestive heart failure) Status: Acute (8) History of heart disease Status: Acute (9) Hypertrophic cardiomyopathy Status: Acute (10) Left medial knee pain Status: Acute (11) Left sided chest pain Status: Acute (12) Persistent cough Status: Acute (13) Right-sided chest pain Status: Acute (14) Right-sided chest pain Status: Acute (15) Shortness of breath Status: Acute (16) SOB (shortness of breath) Status: Acute (17) Syncope Status: Acute Review of Systems Respiratory: No cough, No shortness of breath, No dyspnea at rest Cardiac: No chest pain, No edema, No palpitations Additional ROS Details: Still lightheaded and also very tired No URI sx's No sx's Physical Exam Vital Signs Last Vital Signs Documentation Date Time Temp Pulse Resp B/P (MAP) Pulse Ox O2 Delivery O2 Flow Rate FiO2 04/29/17 08:21 36.8 68 20 111/70 (84) 96 Room Air 68 115/70 (85) 65 120/70 (87) 04/28/17 23:17 21 Physical Exam Constitutional: General Apperance: heathly-appearing Level of Distress: NAD Lungs: Respiratory effort: no dyspnea Auscultation: breath sounds normal, no wheezing, no rales/crackles, no rhonchi Cardiovascular: Heart Auscultation: RRR, no murmurs, no rubs, no gallops Abdomen: Bowel Sounds: normal Inspection & Palpation: soft, non-distended, no tenderness, guarding & rebound Extremities: no edema Assessment and Plan Assessment and Plan IMPRESSION: 1. Lightheadedness and dizziness, which sounds orthostatic in nature. 2. Normal implantable cardioverter-defibrillator interrogation without evidence of any ventricular arrhythmias. 3. As an outpatient on high-dose diuretics including spironolactone 25 mg daily, Lasix 100 mg b.i.d., and Zaroxolyn 2.5 mg every other day. 4. History of severe hypertrophic cardiomyopathy status post septal myomectomy and repair of the mitral valve with an Danitza stitch in December 2015. 5. No coronary artery disease preoperatively. 6. Echocardiogram in December 2016 with normal left ventricular function, but still with severe septal hypertrophy. Still looks prerenal; hold lasix No URI sx's Increase His PO Intake; if still dizzy this PM then another 500cc saline No arrhythmias on monitor--EKG known to be NSR with AV dissociation and V paced at 60 BPM Laboratory Results Last 24 Hours Test 04/29/17 06:14 White Blood Count 5.32 K/uL Red Blood Count 4.97 M/uL Hemoglobin 14.8 g/dL Hematocrit 43.5 % Mean Corpuscular Volume 87.5 fL Mean Corpuscular Hemoglobin 29.8 pg Mean Corpuscular Hemoglobin Concent 34.0 g/dl RDW Standard Deviation 44.0 fL RDW Coefficient of Variation 13.8 % Platelet Count 160 K/uL Mean Platelet Volume 12.0 fL Sodium Level 139 mmol/L Potassium Level 4.1 mmol/L Chloride Level 104 mmol/L Carbon Dioxide Level 30 mmol/L Anion Gap 5.0 mmol/L Blood Urea Nitrogen 23 mg/dl Creatinine 1.09 mg/dl Est Creatinine Clear Calc Drug Dose 133.6 ml/min Estimated GFR () 94.5 Estimated GFR (Non- 81.5 BUN/Creatinine Ratio 21.0 Random Glucose 96 mg/dl Calcium Level 8.5 mg/dl
--- NOTE | 2017-04-29 10:18 | NUR ---
Dr. Ruiz was in rounding.
--- NOTE | 2017-04-29 10:36 | Discharge Summary ---
Discharge Summary Date of Service Apr 29, 2017. Discharge Summary Admission Date: Apr 27, 2017 at 23:24 Discharge Date: Apr 29, 2017 Discharge Disposition: Home Principal Diagnosis: Syncopal episode secondary to over-diuresis, dehydration Immunizations: Have You Had Influenza Vaccine: Yes History of Tetanus Vaccine?: Yes History of Pneumococcal: Yes History of Hepatitis B Vaccine: No Procedures: CHEST ONE VIEW PORTABLE HISTORY: syncope, hx cardiomyopathy COMPARISON: Chest 11/28/2016. FINDINGS: The heart remains mildly enlarged. There are poststernotomy changes and left-sided pacemaker/defibrillator. The lungs are clear. No pleural effusions. No pneumothorax. No evidence for pulmonary edema. Low lung volumes. IMPRESSION: No significant change compared to the prior study. No acute process. Stable mild cardiomegaly. Electronically signed by: Eliazar Pinto M.D. 04/27/2017 9:35 PM Dictated Date/Time: 04/27/2017 9:34 PM The status of this report is Signed. Consultations: Cardiology Medication Reconciliation Continued Medications: Aspirin (Aspirin Ec) 81 Mg Tab 81 MG PO DAILY Fluticasone Furoate-Vilanterol (Breo Ellipta 200-25 Mcg/INH) 1 Inh Inh 1 PUFF INH DAILY Furosemide (Lasix) 40 Mg Tab 100 MG PO BID, TAB TAKE 2 & 1/2 TABS BID. Metoprolol Tartrate (Lopressor) (Lopressor) 25 Mg Tab 12.5 MG PO BID Oxycodone Ir (Roxicodone Ir) 5 Mg Tab 1-2 TAB PO Q4H PRN for Pain, #15 TAB For Initial Treatment Potassium Ext Rel (Klor-Con) 20 Meq Tabcr 20 MEQ PO DAILY, TAB Spironolactone (Aldactone) 25 Mg Tab 25 MG PO DAILY, TAB Tamsulosin Hcl (Flomax) 0.4 Mg Cap 0.4 MG PO DAILY, CAP Discontinued Medications: Metolazone (Zaroxolyn) 2.5 Mg Tab 2.5 MG PO Q2D, TAB Discharge Exam The patient was seen and examined this morning. Patient reports feeling better today compared to yesterday. He reports he still was slightly dizzy whenever he woke up. Patient has been eating and drinking okay. He reports no palpitations or flutter new shortness of breath. He slept well overnight with CPAP. He reports feeling like she has slight nasal drainage this morning and feels like he may be catching a small cold. Denies any sinus congestion pain, itchy eyes, sore throat. ROS: Constitutional: No fever, sweats or chills Eyes: No diplopia, no worsening or blurred vision ENT: normal hearing, no trouble swallowing Respiratory: No cough, sputum, dyspnea at rest or on exertion Cardiovascular: No chest pain, tightness or palpitations Abdomen: No pain, nausea, vomiting, diarrhea or constipation Musculoskeletal: No joint pain, calf pain, swelling Neurologic: No weakness, numbness/tingling, or balance problems Psychiatric: No anxiety or depression Skin: No rash or itch PE: General: awake, alert, no apparent distress, morbidly obese Head: Normocephalic, atraumatic EENT: PERRL, EOMI, no pharyngeal exudate or erythema, mucous membranes moist. TMs visualized with otoscope and are pearly shipman, + cone of light, no signs of erythema or bulging. Chest: Clear to auscultation, on room air, no adventitious breath sounds Cardiac: Regular rate and rhythm, + systolic murmur, no JVD, normal peripheral pulses, good capillary refill Abdominal: NABS x 4 quadrants, soft, nontender to palpation, no rebound, guarding or tenderness Extremities: Normal inspection, no peripheral edema or erythema, calfs nontender to palpation Psych: Normal mood and affect Neuro: AAO x 3, speech is clear Hospital Course Patient is not being discharged. Please disregard Note History of Present Illness Source: patient Unfortunate 46 y/o M w/Hx hypertrophic, obstructive cardiomyopathy, HTN, diastolic CHF, AICD/pacer placement, MEENU, obesity. He became lightheaded, shaky and then suffered a syncopal episode in his bathroom after bending over and getting back up. He continued to feel poorly in a standing position and presented to the ER for evaluation. A pacer interrogation did not reveal any abnormalities. He was unable to comply with orthostatics in the ER as he became markedly lightheaded sitting up or standing. He denies CP, SOB, N/V, diaphoresis. Initial labs revealed a (+) troponin, however, this is chronic and improved compared to baseline. Physical Exam Vital Signs Date Time Temp Pulse Resp B/P (MAP) Pulse Ox O2 Delivery O2 Flow Rate FiO2 04/27/17 21:05 82 20 135/77 95 Room Air 70 118/78 04/27/17 20:32 94 Room Air 04/27/17 20:32 36.7 62 20 121/96 95 Room Air 04/27/17 20:23 79 General Appearance: WD/WN, no apparent distress, + pertinent finding (Morbidly obese, middle-aged male in no distress) Head: normocephalic Eyes: normal inspection ENT: normal ENT inspection, pharynx normal Neck: supple, + pertinent finding (Cannot assess JVD due to obesity) Respiratory/Chest: chest non-tender Cardiovascular: regular rate, rhythm, no gallop, + systolic murmur Abdomen/GI: normal bowel sounds, non tender, soft Extremities/Musculoskelatal: no calf tenderness, normal capillary refill, + pedal edema Neurologic/Psych: screw cutter II-XII nml as tested, no motor/sensory deficits, alert, oriented x 3 Hospital course: Unfortunate 46 y/o M w/Hx hypertrophic, obstructive cardiomyopathy, HTN, diastolic CHF, AICD/pacer placement, MEENU, obesity who presented with an episode of lightheadedness and syncope. A pacer interrogation did not reveal any abnormalities. He was unable to comply with orthostatics in the ER as he became markedly lightheaded sitting up or standing. Initial labs revealed a (+ ) troponin, however, this is chronic and improved compared to baseline. Syncope - Pacemaker interrogation negative- although this is not related to an arrhythmia, it may still be cardiogenic considering his Hx. - Etiology due to overdiuresis due to high dose of Lasix - slow IVF overnight, now off. Orthostatics every shift improved, - Outpatient charge weigher has been contacted - follow-up with cardiology within 1 week. - Plan to continue Lasix 100 mg twice daily and eliminate Zaroxolyn. - Follow potassium with high Lasix dosage and positive or review of systems with muscle cramping- remained stable Diastolic CHF Cardiomyopathy - we will continue his B pipe and Aldactone - as mentioned - Lasix was temporarily held and can be resumed upon discharge - Last echo completed 11/29/[address] Hogan as an outpatient, was recently seen in the office within the past month. Patient will need close follow-up upon discharge within 1 week. Elevated trop - is chronic - trend considering his symptoms- all stable MEENU - CPAP provided HTN - cont Metoprolol, Aldactone DVT ppx: heparin subq CODE STATUS: Full code Disposition: Patient from home, discharged to home today Total Time Spent: Greater than 30 minutes This includes examination of the patient, discharge planning, medication reconciliation, and communication with other providers. Discharge Instructions Please refer to the electronic Patient Visit Report (Discharge Instructions) for additional information. Follow-Up Follow up with your Primary Care Provider within 1 week. Follow up with cardiology within 1 week. Additional Copies To Alfred Davis M.D.
--- NOTE | 2017-04-29 12:00 | NUR ---
patient reassessed fully, see EMR. Denies chest pain, SOB, and N/V. Still c/o lightheadedness with sitting and standing. NSS 500cc Bolus ordered. Still c/o left hip pain. Paced on monitor. Dr. Robles was in rounding. New orders noted. Call barkley within reach.
[2017-04-29] MEDS ORDERED: SODIUM CHLORIDE 0.9% 500ML 500 ML IV ONE (12:15)
--- NOTE | 2017-04-29 12:17 | Hospitalist Progress Note ---
Hospitalist Progress Note Date of Service Apr 29, 2017. (Ariana Carlin PA-C) Subjective Pt evaluation today including: conversation w/ patient, physical exam, chart review, lab review, review of studies Pain: mild left hip pain PO Intake: good Voiding: no voiding problems The patient was seen and examined this morning. Patient reports feeling better today compared to yesterday. He reports he still was slightly dizzy whenever he woke up. Patient has been eating and drinking okay. He reports no palpitations or flutter new shortness of breath. He slept well overnight with CPAP. He reports feeling like she has slight nasal drainage this morning and feels like he may be catching a small cold. Denies any sinus congestion pain, itchy eyes, sore throat. ROS: Constitutional: No fever, sweats or chills Eyes: No diplopia, no worsening or blurred vision ENT: normal hearing, no trouble swallowing Respiratory: No cough, sputum, dyspnea at rest or on exertion Cardiovascular: No chest pain, tightness or palpitations Abdomen: No pain, nausea, vomiting, diarrhea or constipation Musculoskeletal: No joint pain, calf pain, swelling Neurologic: No weakness, numbness/tingling, or balance problems Psychiatric: No anxiety or depression Skin: No rash or itch PE: General: awake, alert, no apparent distress, morbidly obese Head: Normocephalic, atraumatic EENT: PERRL, EOMI, no pharyngeal exudate or erythema, mucous membranes moist. TMs visualized with otoscope and are pearly shipman, + cone of light, no signs of erythema or bulging. Chest: Clear to auscultation, on room air, no adventitious breath sounds Cardiac: Regular rate and rhythm, + systolic murmur, no JVD, normal peripheral pulses, good capillary refill Abdominal: NABS x 4 quadrants, soft, nontender to palpation, no rebound, guarding or tenderness Extremities: Normal inspection, no peripheral edema or erythema, calfs nontender to palpation Psych: Normal mood and affect Neuro: AAO x 3, speech is clear (Ariana Carlin PA-C) Objective Vital Signs Date Time Temp Pulse Resp B/P (MAP) Pulse Ox O2 Delivery O2 Flow Rate FiO2 04/29/17 11:12 36.7 61 19 112/67 (82) 96 12/25/17 08:21 36.8 68 20 111/70 (84) 96 Room Air 68 115/70 (85) 65 120/70 (87) 04/29/17 08:00 96 Room Air 04/29/17 07:20 36.7 60 20 109/73 (85) 98 Room Air 04/29/17 04:00 95 CPAP 04/29/17 04:00 36.4 68 22 108/67 (81) 95 BiPAP 04/29/17 00:00 95 CPAP 04/28/17 23:35 36.4 60 22 127/71 (89) 97 BiPAP 66 136/86 (103) 70 123/78 (93) 04/28/17 23:17 60 96 21 04/28/17 20:00 95 Room Air 04/28/17 19:56 36.5 79 18 128/75 (92) 97 Room Air 04/28/17 16:10 96 Room Air 04/28/17 15:20 36.4 61 18 105/68 (80) 94 Room Air 69 114/81 (92) 67 118/76 (90) 04/28/17 12:28 96 Room Air (Ariana Carlin PA-C) Laboratory Results Last 24 Hours Test 04/29/17 06:14 White Blood Count 5.32 K/uL Red Blood Count 4.97 M/uL Hemoglobin 14.8 g/dL Hematocrit 43.5 % Mean Corpuscular Volume 87.5 fL Mean Corpuscular Hemoglobin 29.8 pg Mean Corpuscular Hemoglobin Concent 34.0 g/dl RDW Standard Deviation 44.0 fL RDW Coefficient of Variation 13.8 % Platelet Count 160 K/uL Mean Platelet Volume 12.0 fL Sodium Level 139 mmol/L Potassium Level 4.1 mmol/L Chloride Level 104 mmol/L Carbon Dioxide Level 30 mmol/L Anion Gap 5.0 mmol/L Blood Urea Nitrogen 23 mg/dl Creatinine 1.09 mg/dl Est Creatinine Clear Calc Drug Dose 133.6 ml/min Estimated GFR () 94.5 Estimated GFR (Non- 81.5 BUN/Creatinine Ratio 21.0 Random Glucose 96 mg/dl Calcium Level 8.5 mg/dl (Ariana Carlin PA-C) Assessment and Plan Unfortunate 46 y/o M w/Hx hypertrophic, obstructive cardiomyopathy, HTN, diastolic CHF, AICD/pacer placement, MEENU, obesity who presented with an episode of lightheadedness and syncope. A pacer interrogation did not reveal any abnormalities. He was unable to comply with orthostatics in the ER as he became markedly lightheaded sitting up or standing. Initial labs revealed a (+ ) troponin, however, this is chronic and improved compared to baseline. Syncope - Pacemaker interrogation negative- although this is not related to an arrhythmia, it may still be cardiogenic considering his Hx. - Etiology due to overdiuresis due to high dose of Lasix - slow IVF on 04/27-04/28, now off. Orthostatics every shift improved at this point although pt still feels slightly dizzy with standing. - can give small bolus of NSS 500mL and see if he improves, if feels better later today can consider discharge. - Outpatient automated access systems technician has been contacted - follow-up with cardiology within 1 week from dc. - Continue to hold lasix. Plan to continue Lasix 100 mg twice daily and eliminate Zaroxolyn at time of dc - Follow potassium with high Lasix dosage and positive or review of systems with muscle cramping- remains stable Diastolic CHF Cardiomyopathy - we will continue his B pipe and Aldactone - as mentioned - Lasix was temporarily held and can be resumed upon discharge - Last echo completed 11/29/[address] Hogan as an outpatient, was recently seen in the office within the past month. Patient will need close follow-up upon discharge within 1 week. Elevated trop - is chronic - trend considering his symptoms- all stable MEENU - CPAP provided HTN - cont Metoprolol, Aldactone DVT ppx: heparin subq CODE STATUS: Full code Disposition: Patient from home, possible discharge home today (Ariana Carlin, NICOLE) I performed a history and physical examination on the patient. I reviewed above note and agree with what is written. During my face to face interaction with the patient, I updated the patient on the plan and answered all of the patient's questions. My exam is below: General Appearance: WD/WN, no apparent distress Neck: supple, no JVD, trachea midline Respiratory/Chest: lungs clear, normal breath sounds, no respiratory distress, no accessory muscle use Cardiovascular: regular rate, rhythm, Abdomen: normal bowel sounds, non tender, soft Extremities: no pedal edema, no calf tenderness, Neurologic/Psychiatric: alert, oriented x 3 Skin: normal color, warm/dry (Hesham Robles M.D.)
--- NOTE | 2017-04-29 13:43 | NUR ---
Patient continues to c/o left hip pain of 8/10 from falling in shower. ice applied. patient requested Morphine per order.
--- NOTE | 2017-04-29 14:30 | NUR ---
Patient was assisted to shower per order by ROUND CUTTER OPERATOR via wheelchair.
--- NOTE | 2017-04-29 14:54 | NUR ---
patient back from shower. c/o feeling lightheaded and feeling SOB and diaphoretic. VSS. 132/81/98. PACED at 65. 95% on room air. Stated Morphine just takes edge off pain in left hip. Call barkley within reach.
--- NOTE | 2017-04-29 15:19 | NUR ---
Amelia given for left hip pain of 8/10.
--- NOTE | 2017-04-29 18:37 | NUR ---
Patient sitting at edge of bed. Noted dry non-productive cough with patient holding his head. stated he blacked out when he coughed. Vision went black. Dr. Robles was called. order received for EKG.
[2017-04-29] MEDS: ACETAMINOPHEN 325 MG TAB PO PRN (19:39)
--- NOTE | 2017-04-29 20:02 | NUR ---
A: Full assessment complete; see EMR. A&OX4. VSS. Paced on tele monitor. Lungs clear/diminished on RA. Dry, MAINTENANCE COORDINATOR cough noted. Pulses WNL. Trace edema noted to BLE. Abdomen obese, soft, NT w/+BSx4. Voiding clear, yellow urine in urinal without difficulty. C/o left hip pain rated 7/10; medicated w/Tylenol. Denies SOB, numbness/tingling, nausea, chest pain. IV HL. Significant other present at bedside. Denies needs at this time. Call barkley within reach. RN will continue to monitor.
[2017-04-30] VITALS (9 sets, daily range): BP systolic 105–150; BP diastolic 72–88; PULSE 61–81; TEMP 36.3–36.8; O2SAT 93–99
--- NOTE | 2017-04-30 00:04 | NUR ---
A: Patient resting in bed at this time; no changes noted in assessment. VSS. Paced on tele monitor. Reports that hip pain is tolerable at this time. IV HL. Voiding in urinal. Denies needs at this time. Call barkley within reach. RN will continue to monitor.
--- NOTE | 2017-04-30 04:03 | NUR ---
A: Patient reassessed; no changes noted. VSS. Paced on tele monitor. Denies pain at this time. IV HL. Lungs clear/diminished on CPAP. Call barkley within reach. RN will continue to monitor.
[2017-04-30] MEDS: HEPARIN SOD 5000 UNIT/0.5 ML CARP SQ SCH ×3 (05:56→20:21)
--- NOTE | 2017-04-30 08:00 | NUR ---
A- VSS EMT PARAMEDIC PACED....PATIENT TO DEPARTMENT FOR ECHO....RESULTS PENDING.....DR. AGUIRRE CONSULTED FOR POSSIBLE DUAL CHAMBER PACEMAKER.
[2017-04-30] MEDS: TAMSULOSIN HCL 0.4 MG CAP PO SCH (09:01)
[2017-04-30] MEDS: SPIRONOLACTONE 25 MG TAB PO SCH (09:01)
[2017-04-30] MEDS: ASPIRIN 81 MG ECTAB PO SCH (09:02)
[2017-04-30] MEDS: METOPROLOL TARTRATE 25 MG TAB PO SCH ×2 (09:02→20:21)
[2017-04-30] MEDS: LIDODERM (LIDOCAINE) PATCH 5% TD SCH (09:04)
[2017-04-30] MEDS ORDERED: PERFLUTREN LIPID MICROSPHERE (DEFINITY) IV ONE (10:35)
[2017-04-30] MEDS: OXYCODONE HCL IR 5 MG TAB (IMMEDIATE RELEASE) PO PRN ×2 (10:56→19:24)
[2017-04-30] MEDS ORDERED: FUROSEMIDE 20 MG TAB PO ONE (11:00)
[2017-04-30] MEDS ORDERED: POLYETHYLENE (MIRALAX) 17 GM PACK PO ONE (11:00)
--- NOTE | 2017-04-30 11:04 | CARDIOLOGY PROGRESS NOTE ---
DATE: 04/30/2017 TIME: 10:30 a.m. SUBJECTIVE: Mr. Connolly states that he has had worsening dyspnea with exertion over the last 24 hours. He denies orthopnea, syncope, near syncope, palpitations or chest discomfort. He is not clear if he had syncope upon presentation. He believes that he remembers all the details; however, there was concern by his girlfriend that he had complete loss of consciousness. His lightheadedness has improved since admission. His recent orthostatic vitals did not demonstrate significant orthostatic changes. He still has some lightheadedness; however. PHYSICAL EXAMINATION: VITAL SIGNS: Temperature 36.8 degrees, heart rate 71 beats per minute, blood pressure 118/75 mmHg. Standing blood pressure 144/88 mmHg with a standing heart rate is 65 beats per minute, while done as part of orthostatic vital signs. Oxygen saturation is 99% on room air. Weight 153 kg. GENERAL: No acute distress. He is alert. NECK: No appreciable, JVD but thick neck. CARDIAC EXAM: No ventricular heave. Regular, normal S1, S2. 2/6 systolic murmur. No rubs or gallops. LUNGS: Clear to auscultation bilaterally without wheezes, rales or rhonchi. ABDOMEN: Soft, nontender, nondistended. Normoactive bowel sounds. Obese. EXTREMITIES: No cyanosis or pitting edema. 2+ radial pulses bilaterally. PSYCHIATRIC: Affect appears appropriate. MEDICATIONS: Include aspirin 81 mg daily, metoprolol tartrate 12.5 mg p.o. b.i.d., spironolactone 25 mg daily, and Flomax 0.4 mg daily. LABORATORY DATA: From 04/29/2017 - sodium 139, potassium 4.1, BUN 23, creatinine 1.09. Peak troponin was 0.078. ProBNP 1121. Albumin 3.9. TSH 2.46. INR 1. ECG from 04/29/2017 at 1826 personally reviewed. Sinus rhythm with AV dissociation. Ventricular paced at 62 beats per minute. Most recent echo on 11/29/2016 demonstrated normal LV systolic function with an EF of 60-65%. Severe asymmetric hypertrophy with anteroseptal and septal valderrama up to 3.1 cm, type 1 diastolic dysfunction. No significant LVOT obstruction. Mild AI. ASSESSMENT AND PLAN: 1. Near syncope: Symptoms appear to be orthostatic in nature by history. He is not orthostatic currently. He does not have significant heart rate change while standing; however. Symptoms have improved with reduction in diuretics. 2. Chronic diastolic congestive heart failure: It was felt as though he was dehydrated upon presentation. Agree with discontinuation of metolazone. Also, agree that in regards to restarting Lasix at some point. Would restart some dose of Lasix today given that his dyspnea with exertion has worsened, while being hospitalized. Low sodium diet. Check daily weights, strict I's and O's. 3. 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 There have been discussions in the past about atrial lead; however, he has been noncompliant with followup. He once again no showed for his EP visit last week. Dr. Medrano has been personally contacted and plans on seeing him later this afternoon to discuss potential changes in his settings versus upgrade to a dual chamber device. He would also like an echocardiogram more up to date because if he has significant left ventricular systolic dysfunction, he may be a candidate for a biventricular device. 4. Mitral valve repair: He has not had any significant issues since his mitral valve repair. This will be reevaluated on echocardiogram. 5. Hypertrophic cardiomyopathy status post myomectomy: We will reevaluate today for a gradient as an echo was requested from EP. Continue low dose beta pipe. Could consider increasing beta pipe in the future if applicable but would not do so with his presenting signs and symptoms concerning for orthostatic etiology with ongoing lightheadedness this morning. 6. Disposition: Cardiology will continue to follow while hospitalized. If there is no immediate changes recommended by electrophysiology, continued cardiology care to be done as an outpatient. Would discharge him on his home dose of Lasix, which was 100 mg twice daily. Close cardiology followup is also recommended and the office will be contacted to arrange such appointment.
--- NOTE | 2017-04-30 11:52 | ECHOCARDIOGRAM REPORT ---
*NOTICE TO RECEIVING [employer] This information is strictly Confidential and protected under [place] law. [place] law prohibits you from making any further disclosure of this information unless further disclosure is expressly permitted by the written consent of the person to whom it pertains or is authorized by law. A general authorization for the release of medical or other information is not sufficient for this purpose. Hospital accepts no responsibility if the information is made available to any other person, INCLUDING THE PATIENT. Interpretation Summary * Name: JULISSA MARIN Study Date: 04/30/2017 09:45 AM BP: 144/88 mmHg * Patient Location: C.2T\S\S238\S\1 HR: 65 * : 1970 (M/d/yyyy) Gender: Male Height: 75 in * Age: 46 yrs Ethnicity: [place] Weight: 337 lb * Ordering Physician: Isaías Hogan * Referring Physician: Self, Referred * Performed By: Mikki Vaughn RDCS * * Reason For Study: Syncope * BSA: 2.7 m2 * -- Conclusions -- * 1. Normal left ventricular size and systolic function. EF 60-65%. Pender appears hypokinetic to akinetic; otherwise, normal wall motion. Severe asymmetric hypertrophy of the anteroseptal base, measuring approximately 2.8 cm otherwise, moderate concentric left ventricular hypertrophy. * 2. The left atrium is mildly dilated. * 3. Mild aortic regurgitation. * 4. No significant LVOT obstruction suggested. * 5. Technically difficult study, enhanced with IV Definity. * 6. No significant change from prior study on 11/29/2016. Procedure Details * A complete two-dimensional transthoracic echocardiogram was performed (2D, M-mode, Doppler and color flow Doppler). * A contrast injection of Definity was performed to improve assessment of LV function. * Contrast was injected into an intravenous site in the left arm. * One vial of Definity ultrasound contrast was diluted in normal saline to a total volume of 10 ml. A total of '2' ml of solution was administered during imaging. * Lot # [id number] of Definity utilized for procedure. * Expiration date . * The attending nurse who injected the contrast agent was Chelsy Mccoy RN. Left Ventricle * Normal left ventricular size and systolic function. EF 60-65%. Pender appears hypokinetic to akinetic; otherwise, normal wall motion. Severe asymmetric hypertrophy of the anteroseptal base, measuring approximately 2.8 cm otherwise, moderate concentric left ventricular hypertrophy. Right Ventricle * The right ventricle is not well visualized. * The right ventricle is grossly normal size. Atria * The left atrium is mildly dilated. * Right atrium not well visualized. Mitral Valve * The mitral valve is grossly normal. * There is no mitral valve stenosis. * There is trace mitral regurgitation. Tricuspid Valve * The tricuspid valve is not well visualized. * There is no tricuspid stenosis. * Significant tricuspid regurgitation is absent. Aortic Valve * The aortic valve is trileaflet. * No hemodynamically significant valvular aortic stenosis. * Mild aortic regurgitation. Pulmonic Valve * The pulmonary valve is inadequately visualized, but the Doppler data is adequate for interpretation. * There is no pulmonic valvular stenosis. * Mild pulmonic valvular regurgitation. Great Vessels * The aortic root is normal size. * Aortic arch of normal dimension. Pericardium/Pleural * There is no pericardial effusion. Great Vessels * IVC not well visualized. MMode 2D Measurements and Calculations IVSd 2.8 cm IVSs 1.9 cm LVIDd 4.4 cm LVIDs 2.9 cm LVPWd 1.4 cm LVPWs 2.3 cm IVS/LVPW 2.0 FS 35.1 % EDV(Teich) 88.4 ml ESV(Teich) 31.3 ml EF(Teich) 64.6 % EDV(cubed) 86.1 ml ESV(cubed) 23.5 ml EF(cubed) 72.7 % % IVS thick -34.74 % % LVPW thick 58.3 % LV mass(C)d 476.0 grams LV mass(C)dI 173.8 grams/m\S\2 LV mass(C)s 265.6 grams LV mass(C)sI 97.0 grams/m\S\2 SV(Teich) 57.2 ml SI(Teich) 20.9 ml/m\S\2 SV(cubed) 62.6 ml SI(cubed) 22.8 ml/m\S\2 Ao root diam 3.3 cm Ao root area 8.4 cm\S\2 ACS 1.8 cm LA dimension 4.3 cm LA/Ao 1.3 LVOT diam 1.9 cm LVOT area 2.9 cm\S\2 Doppler Measurements and Calculations MV E max calos 106.2 cm/sec MV V2 max 138.5 cm/sec MV max PG 7.7 mmHg MV P1/2t max calos 137.8 cm/sec MV P1/2t 71.0 msec MVA(P1/2t) 3.1 cm\S\2 MV dec slope 568.5 cm/sec\S\2 MV dec time 0.27 sec Ao V2 max 169.3 cm/sec Ao max PG 11.5 mmHg Ao max PG (full) 8.2 mmHg OLIVER(V,A) 1.5 cm\S\2 OLIVER(V,D) 1.5 cm\S\2 AI max calos 279.1 cm/sec AI max PG 31.2 mmHg AI dec slope 108.1 cm/sec\S\2 AI P1/2t 756.3 msec LV V1 max PG 3.3 mmHg LV V1 max 90.2 cm/sec PA V2 max 82.1 cm/sec PA max PG 2.7 mmHg PI max calos 200.9 cm/sec PI max PG 16.1 mmHg PI dec slope 142.2 cm/sec\S\2 PI P1/2t 413.7 msec TR max calos 207.5 cm/sec
--- NOTE | 2017-04-30 12:00 | NUR ---
A- LASIX GIVEN ....100MG PO....NO OTHER CHANGES IN PHYSICAL ASSESSMENT SINCE 0800.
[2017-04-30] MEDS ORDERED: OPTIRAY 320 IV PRN (14:30)
--- NOTE | 2017-04-30 14:30 | Cardiology Follow-Up ---
Subjective Date of Service: Apr 30, 2017. Pt evaluation today including: conversation w/ patient, physical exam, lab review, review of studies, review of inpatient medication list, conversation w/ attending History of Present Illness Patient seen and examined. See Dr. Hogan's note. He describes a very sudden onset of shortness of breath, feeling poorly and decreased exercise tolerance starting suddenly on 04/27/2017. Before that he felt well, ever since then he has not felt well. There appears to been no change in left ventricular function, he may be a little bit of heart failure but with diuresis he has not felt better, his device has demonstrated no arrhythmia and he has remained in complete heart block since long before this episode. Social History Smoking Status: Never Smoker History of Alcohol Use: Yes (RARE [employer]) Review of Systems Respiratory: No cough, No shortness of breath, No dyspnea at rest Cardiac: No chest pain, No edema, No palpitations Medications Cardiovascular: Item Value Date Time Aspirin 81 mg 04/28/17 0900 (Ecotrin Tab) DAILY/PO 04/30/17 0902 Metoprolol 12.5 mg 04/28/17 0900 Tartrate BID/PO 04/30/17 0902 (Lopressor Tab) Spironolactone 25 mg 04/28/17 0900 (Aldactone Tab) DAILY/PO 04/30/17 0901 Heparin Sodium 5,000 unit 04/28/17 0600 (Porcine) Q8/SQ 04/30/17 0556 (Heparin Sq 5000 Unit/0.5ml) Objective Vital Signs Past 12 Hours Date Time Temp Pulse Resp B/P (MAP) Pulse Ox O2 Delivery O2 Flow Rate FiO2 04/30/17 12:00 Room Air 04/30/17 11:41 36.6 62 20 129/78 (95) 96 Room Air 04/30/17 08:00 Room Air 04/30/17 07:27 36.8 71 22 118/75 (89) 99 Room Air 65 116/76 (89) 65 144/88 (106) 04/30/17 04:09 69 20 122/73 (89) 98 CPAP 72 105/72 (83) 68 118/83 (95) 04/30/17 04:02 Room Air 04/30/17 03:55 36.3 61 18 110/78 (89) 97 CPAP Last Recorded Weight-Kilograms: 153.000 Intake & Output 8-Hour Column 04/30/17 05/01/17 05/01/17 16:00 00:00 08:00 Intake Total 675 ml Output Total 1000 ml Balance -325 ml 24-Hour Column 05/01/17 08:00 Intake Total 675 ml Output Total 1000 ml Balance -325 ml Physical Exam Constitutional: General Apperance: heathly-appearing Level of Distress: NAD Lungs: Respiratory effort: no dyspnea Auscultation: breath sounds normal, no wheezing, no rales/crackles, no rhonchi Cardiovascular: Heart Auscultation: RRR, no murmurs, no rubs, no gallops Extremities: no edema Data Imaging: Chest x-ray is difficult to interpret but does not show acute CHF EKG: On arrival complete heart block with a ventricular paced rhythm, underlying sinus rhythm Telemetry reviewed: Ventricular pacing, very little rate response however he has been at bedrest Assessment and Plan #1. Sudden onset of shortness of breath, fatigue and difficulty with exertion: They're not remaining things that can cause these sudden events, since there has been no change in ejection fraction and only borderline enzymes it does not seem to be a primary cardiac event, there is no arrhythmia identified on his ICD (it would miss a atrial arrhythmia but we've not identified that here and he is still feeling poorly). He is in AV disassociation with a single chamber paced rhythm however he felt well before and that is not a new arrhythmia therefore that does not explain his presentation. I would recommend a chest CT for pulmonary embolism, if that does not demonstrate a PE that I really don't know how to explain his presentation. #2. Complete heart block: He is in complete heart block with an underlying sinus rhythm, his single-chamber pacemaker is pacing the ventricle appropriately and he does have reasonable rate response based on prior to device interrogations. He could potentially feel better with a dual-chamber device, his ejection fraction is good therefore a biventricular device is probably not a consideration. It would not explain his presentation however but we may want to consider upgrading his device to a dual-chamber unit at some point. #3. Single-chamber ICD: His device is working very well, prior to admission his rate response looked reasonable, since then he has had very little rate response but he has been at bedrest. I therefore did not reprogram the device. Thank you for allowing me to participate in his care.
--- NOTE | 2017-04-30 15:33 | NUR ---
A- #18GA SL INSERTED FOR CT CHEST TO R/O PE.......PATIENT TO DEPARTMENT FOR CT......RESULTS PENDING.
--- NOTE | 2017-04-30 15:37 | DIAGNOSTIC IMAGING REPORT ---
(CHEST FOR PE) ANGIO WITH CLINICAL HISTORY: 46 years-old Male presenting with syncope and clinical concern for pulmonary embolus. TECHNIQUE: Multidetector CT angiography of the chest was performed after administration of intravenous contrast. 3-D volumetric and/or maximum intensity projection (MIP) images were subsequently reconstructed for review. IV contrast: 92 mL of Optiray 320. A dose lowering technique was used consistent with the principles of ALARA (as low as reasonably achievable). COMPARISON: 04/04/2016. CT DOSE (mGy.cm): The estimated cumulative dose is 735.15 mGy.cm. FINDINGS: Book Binder topogram: Left subclavian implanted cardiac defibrillator with lead to the right ventricular apex. Median sternotomy wires and cardiomegaly noted. Pulmonary vasculature: The study is adequate for assessment of the pulmonary vascular tree. No filling defect within the pulmonary arteries to suggest embolus. Main pulmonary artery is enlarged measuring 3.7 cm in transverse dimension. No flattening of the interventricular septum. No intracardiac intracardiac filling defect. There is reflux of contrast into the hepatic veins. Remaining chest: On soft tissue windows, normal thyroid and thoracic inlet. No axillary, supraclavicular, hilar, or mediastinal lymphadenopathy. Normal aorta. Hypertrophy of the ventricular septum. Overall normal heart size. No pericardial or pleural effusion. Upper abdomen normal. On lung windows, Mosaic attenuation could suggest small airways disease. Solid fissural 7 mm nodule in the anterior right upper lobe (series 4 image 135). Several smaller solid nodules in the right upper and middle lobes noted subpleural solid 6 mm nodule in the right lower lobe (series 4 image 128). Solid fissural 5 mm nodule at the left apex (series 4 image 234). Airways patent. On bone windows, normal osseous structures. IMPRESSION: 1. No evidence of pulmonary embolus. No acute intrathoracic pathology. 2. Mosaic attenuation could suggest small airways disease. 3. Multiple bilateral solid pulmonary nodules measuring up to 7 mm. Follow-up per Gabriel Society 2017 recommendations below. 4. Hypertrophy of the ventricular septum, which could suggest concentric hypertrophy. Please refer to below summary of Fleischner Society 2017 recommendations for follow-up of incidental CT nodules (Alaina Beth et al. Guidelines for management of incidental pulmonary nodules detected on CT images: From the Fleischner Society 2017. Radiology 2017; 284: 228-243.) SOLID NODULES Single nodule; size < 6 mm * Low risk patients: No routine follow-up * High risk patients: Optional CT at 12 months Single nodule; size 6-8 mm * Low risk patients: CT at 6-12 months, then consider CT at 18-24 months * High risk patients: CT at 6-12 months, then at 18-24 months Single nodule; size > 8 mm * Either low or high risk patients: Considered CT at 3 months, PET/CT, or tissue sampling Multiple nodules; size < 6 mm * Low risk patients: No routine follow up * High risk patients: Optional CT at 12 months Multiple nodules; size 6-8 mm * Low risk patients: CT at 3-6 months, then consider CT at 18-24 months * High risk patients: CT at 3-6 months, then at 18-24 months Multiple nodules; size > 8 mm * Low risk patients: CT at 3-6 months, then consider at 18-24 months * High risk patients: CT at 3-6 months, then at 18-24 months Note: These guidelines apply to incidental nodules. These guidelines do not apply to patients younger than 35 years, immunocompromised patients, or patients with cancer. * Low risk patients: Minimal or absent history of smoking and/or other known risk factors * High risk patients: History of smoking, exposure to other carcinogens, emphysema, fibrosis, upper lobe location, family history of lung cancer, etc. * If a nodule up to 8 mm is partly solid or is ground glass, further follow-up is required after 24 months to exclude possible slow growing adenocarcinoma. SUBSOLID NODULES Single ground-glass nodule * Nodule size < 6 mm: No routine follow-up * Nodule size > or = 6 mm: CT at 6-12 months to confirm persistence, then CT every 2 years until 5 years Single part-solid nodule * Nodule size < 6 mm: No routine follow-up * Nodules size > or = 6 mm: CT at 3-6 months to confirm persistence. If unchanged and solid component remains < 6 mm, annual CT should be performed for 5 years Multiple nodules * Nodule size < 6 mm: CT at 3-6 months. If stable, consider CT at 2 and 4 years. * Nodules size > or = 6 mm: CT at 3-6 months. Subsequent management based on the most suspicious nodule(s) Electronically signed by: Fareed Smart M.D. 04/30/2017 3:36 PM Dictated Date/Time: 04/30/2017 3:29 PM
--- NOTE | 2017-04-30 17:19 | Hospitalist Progress Note ---
Hospitalist Progress Note Date of Service Apr 30, 2017. (Cristy Whittington CRNP) Subjective Pt evaluation today including: conversation w/ patient, physical exam, chart review, lab review, conversation w/ baby registry sales consultant Voiding: no voiding problems Mr. Connolly does not feel he has improved much since admission. He states that his syncopal event came without warning after bending over a sink and standing back up. He also states that his daughter saw him pass out twice. He does feel lightheaded when he stands. He continues to be sob. ROS Constitutional: no chills, aches, sweats or fever Respiratory: no cough, sputum, or wheezing Cardiac: no chest pain, palpitations, edema, orthopnea GI: no abdominal pain, nausea, vomiting, diarrhea or constipation : no dysuria or hesitancy Extremities: no joint pain or weakness Skin: no rash All Other Systems: Reviewed and Negative (Cristy Whittington CRNP) Medications Medications Administered Medications (Trade) Dose Ordered Sig/Ida Route Start Time Stop Time Status Last Admin Dose Admin Morphine Sulfate (MoRPHine SULFATE INJ) 4 mg NOW STAT IV 04/27/17 21:27 04/27/17 21:28 DC 04/27/17 22:16 4 MG Aspirin (Aspirin Chew) 243 mg NOW STAT PO 04/27/17 21:37 04/27/17 21:39 DC 04/27/17 22:14 243 MG Sodium Chloride 500 ml @ 999 mls/hr Q31M STAT IV 04/27/17 22:36 04/27/17 23:06 DC 04/27/17 22:47 999 MLS/HR Aspirin (Ecotrin Tab) 81 mg DAILY PO 04/28/17 09:00 05/28/17 08:59 04/30/17 09:02 81 MG Metoprolol Tartrate (Lopressor Tab) 12.5 mg BID PO 04/28/17 09:00 05/28/17 08:59 04/30/17 09:02 12.5 MG Oxycodone HCl (Roxicodone Immediate Rel Tab) 5 mg Q6H PRN PO 04/27/17 22:30 05/11/17 22:29 04/30/17 10:56 5 MG Spironolactone (Aldactone Tab) 25 mg DAILY PO 04/28/17 09:00 05/28/17 08:59 04/30/17 09:01 25 MG Tamsulosin HCl (Flomax Cap) 0.4 mg DAILY PO 04/28/17 09:00 05/28/17 08:59 04/30/17 09:01 0.4 MG Heparin Sodium (Porcine) (Heparin Sq 5000 Unit/0.5ml) 5,000 unit Q8 SQ 04/28/17 06:00 05/28/17 05:59 04/30/17 14:28 5,000 UNIT Acetaminophen (Tylenol Tab) 650 mg Q4H PRN PO 04/27/17 23:30 05/27/17 23:29 04/29/17 19:39 650 MG Al Hydrox/Mg Hydrox/Simethicone (Maalox Max Susp) 15 ml Q4H PRN PO 04/27/17 23:30 05/27/17 23:29 04/29/17 07:58 15 ML Morphine Sulfate (MoRPHine SULFATE INJ) 2 mg Q30M PRN IV 04/27/17 23:30 05/11/17 23:29 04/29/17 13:43 2 MG Sodium Chloride 500 ml @ 75 mls/hr Q6H40M IV 04/28/17 01:30 04/28/17 08:09 DC 04/28/17 01:30 75 MLS/HR Lidocaine (Lidoderm Patch 5%) 1 patch QAM TD 04/29/17 09:00 05/29/17 08:59 04/30/17 09:04 1 PATCH Miscellaneous (Remove Lidoderm Patch) 1 ea DAILY@21 N/A 04/28/17 21:00 05/28/17 20:59 04/28/17 21:04 1 EA Menthol (Nice Nola) 24 nola STK-MED ONCE .ROUTE 04/29/17 07:54 04/29/17 07:55 DC 04/29/17 07:57 24 NOLA Sodium Chloride 500 ml @ 250 mls/hr Q2H ONCE IV 04/29/17 12:15 04/29/17 14:14 DC 04/29/17 12:15 250 MLS/HR Perflutren Lipid Microsphere (Definity) 2 ml ONE ONCE IV 04/30/17 10:35 04/30/17 10:36 DC 04/30/17 10:35 2 ML Furosemide (Lasix Tab) 100 mg NOW ONCE PO 04/30/17 11:00 04/30/17 11:01 DC 04/30/17 11:49 100 MG Polyethylene (Miralax Powder Packet) 17 gm ONE ONCE PO 04/30/17 11:00 04/30/17 11:01 DC 04/30/17 11:58 17 GM (Cristy Whittington CRNP) Objective Vital Signs Date Time Temp Pulse Resp B/P (MAP) Pulse Ox O2 Delivery O2 Flow Rate FiO2 04/30/17 16:30 150/80 (103) 04/30/17 15:59 128/82 (97) 04/30/17 15:58 36.4 66 20 133/78 (96) 94 Room Air 04/30/17 15:32 Room Air 04/30/17 12:00 Room Air 04/30/17 11:41 36.6 62 20 129/78 (95) 96 Room Air 04/30/17 08:00 Room Air 04/30/17 07:27 36.8 71 22 118/75 (89) 99 Room Air 65 116/76 (89) 65 144/88 (106) 04/30/17 04:09 69 20 122/73 (89) 98 CPAP 72 105/72 (83) 68 118/83 (95) 04/30/17 04:02 Room Air 04/30/17 03:55 36.3 61 18 110/78 (89) 97 CPAP 04/30/17 00:00 Room Air 04/29/17 23:19 36.3 60 20 105/68 (80) 96 CPAP 04/29/17 20:01 Room Air 04/29/17 19:25 36.7 62 20 108/67 (81) 96 Room Air (Cristy Whittington, PAMELA) Physical Exam Notes: General: no distress Eyes: normal inspection, PERLL Respiratory: chest non tender, clear to auscultation, normal breath sounds, no respiratory distress, no accessory muscle use Cardiac: regular rate and rhythm, no rub or gallop, no murmur, no edema, no jvd GI/: active bowel sounds, no abd pain or tenderness, soft, non distended Extremities: normal range of motion, normal strength, non tender Neuro/Psych: alert and oriented x 3, normal mood and affect Skin: normal color, dry (Cristy Whittington CRNP) Assessment and Plan Mr. Connolly is a 46 y/o here for lightheadedness and syncope. Syncope - Pacemaker interrogation negative and reviewed by cardiology - unclear etiology - may be partly due to over diuresis with furosemide, cardiology considering dual chamber pacer but in light of lack of events on interrogation is unsure that this would really solve the issue - BP actually increased upon standing - continue orthostatics daily - CT did not find any PE however he does have several nodules, largest 7mm - Outpatient hookman has been contacted - follow-up with cardiology [place] from [place] - Lasix 100 mg today per cardiology, recommend returning to 100 mg bid for bharathi Diastolic CHF Cardiomyopathy - we will continue his B pipe and Aldactone - lasix as above - Echo unchanged from previous in November Elevated trop - is chronic - stable MEENU - CPAP provided HTN - cont Metoprolol, Aldactone DVT ppx: heparin subq CODE STATUS: Full code Disposition: Patient from home (Cristy Whittington CRNP) Reviewed: Pt Seen/Exam by Me (Marilynn Briseno MD) History STORE ASSISTANT Supervision Note: I interviewed and examined the patient. Discussed with PAMELA Whittington and agree with findings and plan as documented in the note. Any exceptions or clarifications are listed here: Pt reports feeling profoundly tired for several days, has not improved at all. Breathing feels better since receiving lasix today. Denies any new joint pains or rashes. He has occasional HAs usually related to not wearing his CPAP. He hasn't noticed any ticks on him, but reports having Lyme disease in 2008. No sore throat or recent cold symptoms. Vitals reviewed, NAD, obese RRR 2/6 KIRTI at left sternal border CTAB no wcr Abd +BS soft NT ND, obese Ext trace pitting edema of legs bilat Skin no rashes 46 yo male with a h/o HCOM s/p myomectomy and AICD/single chamber pacer, Chronic diastolic CHF, h/o MVR, MEENU on CPAP, HTN, here with syncope and orthostasis. -orthostasis improved but states he feels lightheaded still as well as profound fatigue=--> check Lyme titer but could be negative early in course of illness, may need repeat in 2 weeks with PCP -appreciate Cardio recommendations as per STORE ASSISTANT note above--> can likely dc to home tomorrow if stable -Pulm nodules will require repeat CT CHest in 3-6 months and can be ordered by PCP--> discussed with pt Documented By: Marilynn Briseno (Marilynn Briseno MD)
--- NOTE | 2017-04-30 19:00 | NUR ---
Patient resting in bed with feet dangling at this time. Patient verbalizes 7/10 left side hip pain, patient will be medicated appropriately. No chest pain. Paced on the monitor. +1 pitting lower extremity edema. Palpable pulses. Lungs clear on room air, CPAP/BiPAP at night. No cough. No shortness of breath. Abdomen is soft, non-tender, non-distended and obese. Voids in urinal. No skin issues. Left hand and right forearm IV saline lock. Orthostatic vitals. Family at bedside. Bed in low position. 2 side rails up. Call barkley within reach. Patient agrees to ring for assistance. Continue to monitor patient.
[2017-04-30] MEDS: MoRPHine SULFATE 2 MG/ML CARP IV PRN (19:24)
--- NOTE | 2017-04-30 19:24 | NUR ---
Patient was supposed to be medicated with Morphine 2 mg IV push, but prior to administering medication and after taking medication out of package, it was noted that syringe was cracked and medication was no longer in syringe. Pharmacy was made aware, syringe was placed in clear plastic bag, and syringe was returned to [facility] return bin.
--- NOTE | 2017-05-01 00:01 | NUR ---
Patient resting comfortably in bed. No chest pain. Paced on the monitor. +1 pitting lower extremity edema. Palpable pulses. Lungs clear on room air, CPAP/BiPAP at night. No cough. No shortness of breath. Abdomen is soft, non-tender, non-distended and obese. Voids in urinal. No skin issues. Left hand and right forearm IV saline lock. Orthostatic vitals. Family at bedside. Bed in low position. 2 side rails up. Call barkley within reach. Patient agrees to ring for assistance. Continue to monitor patient.
[2017-05-01 03:15] VITALS: BP 109/64; PULSE 74; TEMP 36.5; O2SAT 93
[2017-05-01 06:17] LABS: HEMATOCRIT 45.2 % (42-52); HEMOGLOBIN 15.5 g/dL (14.0-18.0); MEAN CELL VOLUME 86.6 fL (80-100); MEAN CORPUSCULAR HEMOGLOBIN 29.7 pg (25-34); MEAN CORPUSCULAR HGB CONC 34.3 g/dl (32-36); MEAN PLATELET VOLUME 11.7 fL (7.4-10.4); PLATELET COUNT 165 K/uL (130-400); RED CELL DISTRIBUTION WIDTH CV 13.8 % (11.5-14.5); RED CELL DISTRIBUTION WIDTH SD 43.3 fL (36.4-46.3); WHITE BLOOD COUNT 5.37 K/uL (4.8-10.8)
[2017-05-01] MEDS: HEPARIN SOD 5000 UNIT/0.5 ML CARP SQ SCH ×3 (06:17→20:59)
[2017-05-01 06:47] LABS: CALCIUM 8.9 mg/dl (8.5-10.1); CREATININE 1.3 mg/dl (0.60-1.40); POTASSIUM 4.2 mmol/L (3.5-5.1)
[2017-05-01 07:35] VITALS: BP 143/82; PULSE 60; TEMP 37; O2SAT 95
[2017-05-01] MEDS: OXYCODONE HCL IR 5 MG TAB (IMMEDIATE RELEASE) PO PRN ×2 (07:43→15:39)
[2017-05-01] MEDS: TAMSULOSIN HCL 0.4 MG CAP PO SCH (07:43)
[2017-05-01] MEDS: ASPIRIN 81 MG ECTAB PO SCH (07:44)
[2017-05-01] MEDS: LIDODERM (LIDOCAINE) PATCH 5% TD SCH (07:44)
[2017-05-01] MEDS: SPIRONOLACTONE 25 MG TAB PO SCH (07:44)
[2017-05-01] MEDS: METOPROLOL TARTRATE 25 MG TAB PO SCH ×2 (07:44→19:39)
--- NOTE | 2017-05-01 08:00 | NUR ---
A: medicated for left hip pain, see Emar. sat on edge of bed. consumed 100% breakfast. 18 jelco intact right FA and 20 jelco intact left hand. both sites clear. denies difficulty voiding.
[2017-05-01] MEDS ORDERED: FUROSEMIDE 40 MG TAB PO ONE (10:00)
[2017-05-01 11:19] VITALS: BP_SYST 115; BP_SYST 124; BP_SYST 129; BP_DIAS 68; BP_DIAS 71; BP_DIAS 80; PULSE 70; TEMP 36.7; O2SAT 95
--- NOTE | 2017-05-01 12:00 | NUR ---
A: sitting at edge of bed. denies complaints. consumed 100% lunch. bilateral saline locks intact, sites clear. voiding without difficulty. for dual pacemaker insertion tomorrow. assessment unchanged.
--- NOTE | 2017-05-01 13:23 | Cardiology Follow-Up ---
Subjective Date of Service: May 01, 2017. Pt evaluation today including: conversation w/ patient, physical exam, lab review, review of studies, review of inpatient medication list History of Present Illness Patient feels well today, he doesn't think he is quite back to normal but he is feeling a little bit better. He is not having shortness of breath, is not having orthopnea or PND. He has been up and around to some extent and although he is somewhat short of breath he feels that that is acceptable. Social History Smoking Status: Never Smoker History of Alcohol Use: Yes (RARE [employer]ER) Review of Systems Respiratory: No cough, No shortness of breath, No dyspnea at rest Cardiac: No chest pain, No edema, No palpitations Medications Cardiovascular: Item Value Date Time Aspirin 81 mg 04/28/17 0900 (Ecotrin Tab) DAILY/PO 05/01/17 0744 Metoprolol 12.5 mg 04/28/17 0900 Tartrate BID/PO 05/01/17 0744 (Lopressor Tab) Spironolactone 25 mg 04/28/17 0900 (Aldactone Tab) DAILY/PO 05/01/17 0744 Objective Vital Signs Past 12 Hours Date Time Temp Pulse Resp B/P (MAP) Pulse Ox O2 Delivery O2 Flow Rate FiO2 05/01/17 08:00 Room Air 05/01/17 07:35 37.0 60 18 143/82 (102) 95 Room Air 05/01/17 04:00 Room Air 05/01/17 03:15 36.5 74 20 109/64 (79) 93 CPAP 05/01/17 00:01 Room Air 04/30/17 23:06 36.6 81 19 130/79 (96) 93 Room Air 04/30/17 21:49 21 Last Recorded Weight-Kilograms: 151.000 Physical Exam Constitutional: General Apperance: heathly-appearing Level of Distress: NAD Lungs: Respiratory effort: no dyspnea Auscultation: breath sounds normal, no wheezing, no rales/crackles, no rhonchi Cardiovascular: Heart Auscultation: RRR, no murmurs, no rubs, no gallops Extremities: no edema Data Laboratory Results: Last 24 Hours Test 05/01/17 05:56 White Blood Count 5.37 K/uL Red Blood Count 5.22 M/uL Hemoglobin 15.5 g/dL Hematocrit 45.2 % Mean Corpuscular Volume 86.6 fL Mean Corpuscular Hemoglobin 29.7 pg Mean Corpuscular Hemoglobin Concent 34.3 g/dl RDW Standard Deviation 43.3 fL RDW Coefficient of Variation 13.8 % Platelet Count 165 K/uL Mean Platelet Volume 11.7 fL Sodium Level 137 mmol/L Potassium Level 4.2 mmol/L Chloride Level 100 mmol/L Carbon Dioxide Level 34 mmol/L Anion Gap 3.0 mmol/L Blood Urea Nitrogen 19 mg/dl Creatinine 1.30 mg/dl Est Creatinine Clear Calc Drug Dose 112.8 ml/min Estimated GFR () 76.4 Estimated GFR (Non- 65.9 BUN/Creatinine Ratio 14.5 Random Glucose 107 mg/dl Calcium Level 8.9 mg/dl Lyme Disease IgG Antibody NEG Lyme Disease IgM Antibody NEG Imaging: Chest CT was negative for PE Telemetry reviewed: Ventricular paced rhythm throughout Assessment and Plan #1. Sudden onset of shortness of breath, fatigue and difficulty with exertion: There are not many things that can cause these sudden events, since there has been no change in ejection fraction and only borderline enzyme elevation it does not seem to be a primary cardiac event, there is no arrhythmia identified on his ICD (it would miss a atrial arrhythmia but we've not identified that here and since he is in complete heart block that would not likely cause symptoms). 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 At this point it seems likely that it was progressive heart failure which only became symptomatically acute on presentation. #2. Complete heart block: He is in complete heart block with an underlying sinus rhythm, his single-chamber pacemaker is pacing the ventricle appropriately and he does have reasonable rate response based on prior to device interrogations. His AV disassociation and lack of appropriate heart rate response (since he can't since his atrial rhythm) may explain some of his symptoms. He would likely feel better with a dual-chamber device, his ejection fraction is good therefore a biventricular device is probably not a consideration. I therefore recommended that we upgraded his device to a dual- chamber unit, that will necessitate placing an atrial lead. His ventricular lead apparently is working well therefore we will probably use it. Most of the time we can place the system from the left, but occasionally (perhaps 10% of the time) the left subclavian vein is occluded and we can't place the lead from that side. In that case we can place it on the right and tunnel it to the left but leave the ICD in the left. We would then replaced the device with a dual- chamber unit. I discussed the indications, procedure, risks and alternatives of upgrading his ICD to a dual-chamber unit and he understands and agrees to proceed. I also reviewed conscious sedation and the risks of that. Consent obtained. We'll plan on doing this tomorrow. Thank you for allowing me to participate in his care.
[2017-05-01 15:29] VITALS: BP 138/87; PULSE 65; TEMP 36.3; O2SAT 95
[2017-05-01] MEDS: FUROSEMIDE 40 MG TAB PO SCH (15:36)
--- NOTE | 2017-05-01 15:44 | Hospitalist Progress Note ---
Hospitalist Progress Note Date of Service May 01, 2017. (Cristy Whittington CRNP) Subjective Pt evaluation today including: conversation w/ patient, physical exam, chart review, lab review, review of inpatient medication list Voiding: no voiding problems Mr. Connolly reports feeling a small amount of improvement in his sob and fatigue. ROS Constitutional: no chills, aches, sweats or fever Respiratory: some sob,no cough, sputum, or wheezing Cardiac: no chest pain, palpitations, edema, orthopnea, does have some continued lightheadedness GI: no abdominal pain, nausea, vomiting, diarrhea or constipation : no dysuria or hesitancy Extremities: no joint pain or weakness Skin: no rash All Other Systems: Reviewed and Negative (Cristy Whittington CRNP) Medications Medications Administered Medications (Trade) Dose Ordered Sig/Ida Route Start Time Stop Time Status Last Admin Dose Admin Morphine Sulfate (MoRPHine SULFATE INJ) 4 mg NOW STAT IV 04/27/17 21:27 04/27/17 21:28 DC 04/27/17 22:16 4 MG Aspirin (Aspirin Chew) 243 mg NOW STAT PO 04/27/17 21:37 04/27/17 21:39 DC 04/27/17 22:14 243 MG Sodium Chloride 500 ml @ 999 mls/hr Q31M STAT IV 04/27/17 22:36 04/27/17 23:06 DC 04/27/17 22:47 999 MLS/HR Aspirin (Ecotrin Tab) 81 mg DAILY PO 04/28/17 09:00 05/28/17 08:59 05/01/17 07:44 81 MG Metoprolol Tartrate (Lopressor Tab) 12.5 mg BID PO 04/28/17 09:00 05/28/17 08:59 05/01/17 07:44 12.5 MG Oxycodone HCl (Roxicodone Immediate Rel Tab) 5 mg Q6H PRN PO 04/27/17 22:30 05/11/17 22:29 05/01/17 07:43 5 MG Spironolactone (Aldactone Tab) 25 mg DAILY PO 04/28/17 09:00 05/28/17 08:59 05/01/17 07:44 25 MG Tamsulosin HCl (Flomax Cap) 0.4 mg DAILY PO 04/28/17 09:00 05/28/17 08:59 05/01/17 07:43 0.4 MG Heparin Sodium (Porcine) (Heparin Sq 5000 Unit/0.5ml) 5,000 unit Q8 SQ 04/28/17 06:00 05/28/17 05:59 05/01/17 13:38 5,000 UNIT Acetaminophen (Tylenol Tab) 650 mg Q4H PRN PO 04/27/17 23:30 05/27/17 23:29 04/29/17 19:39 650 MG Al Hydrox/Mg Hydrox/Simethicone (Maalox Max Susp) 15 ml Q4H PRN PO 04/27/17 23:30 05/27/17 23:29 04/29/17 07:58 15 ML Morphine Sulfate (MoRPHine SULFATE INJ) 2 mg Q30M PRN IV 04/27/17 23:30 05/11/17 23:29 04/30/17 19:24 2 MG Sodium Chloride 500 ml @ 75 mls/hr Q6H40M IV 04/28/17 01:30 04/28/17 08:09 DC 04/28/17 01:30 75 MLS/HR Lidocaine (Lidoderm Patch 5%) 1 patch QAM TD 04/29/17 09:00 05/29/17 08:59 04/30/17 09:04 1 PATCH Miscellaneous (Remove Lidoderm Patch) 1 ea DAILY@21 N/A 04/28/17 21:00 05/28/17 20:59 04/30/17 20:22 1 EA Menthol (Nice Nola) 24 nola STK-MED ONCE .ROUTE 04/29/17 07:54 04/29/17 07:55 DC 04/29/17 07:57 24 NOLA Sodium Chloride 500 ml @ 250 mls/hr Q2H ONCE IV 04/29/17 12:15 04/29/17 14:14 DC 04/29/17 12:15 250 MLS/HR Perflutren Lipid Microsphere (Definity) 2 ml ONE ONCE IV 04/30/17 10:35 04/30/17 10:36 DC 04/30/17 10:35 2 ML Furosemide (Lasix Tab) 100 mg NOW ONCE PO 04/30/17 11:00 04/30/17 11:01 DC 04/30/17 11:49 100 MG Polyethylene (Miralax Powder Packet) 17 gm ONE ONCE PO 04/30/17 11:00 04/30/17 11:01 DC 04/30/17 11:58 17 GM Furosemide (Lasix Tab) 100 mg NOW ONCE PO 05/01/17 10:00 05/01/17 10:11 DC 05/01/17 10:46 100 MG (Cristy Whittington CRNP) Objective Vital Signs Date Time Temp Pulse Resp B/P (MAP) Pulse Ox O2 Delivery O2 Flow Rate FiO2 05/01/17 12:00 Room Air 05/01/17 11:19 36.7 70 20 129/80 (96) 95 Room Air 124/71 (88) 115/68 (84) 05/01/17 08:00 Room Air 05/01/17 07:35 37.0 60 18 143/82 (102) 95 Room Air 05/01/17 04:00 Room Air 05/01/17 03:15 36.5 74 20 109/64 (79) 93 CPAP 05/01/17 00:01 Room Air 04/30/17 23:06 36.6 81 19 130/79 (96) 93 Room Air 04/30/17 21:49 21 04/30/17 20:00 Room Air 04/30/17 19:34 36.6 63 20 127/79 (95) 95 Room Air 04/30/17 16:30 150/80 (103) 04/30/17 15:59 128/82 (97) 04/30/17 15:58 36.4 66 20 133/78 (96) 94 Room Air 04/30/17 15:32 Room Air (Cristy Whittington CRNP) Physical Exam Notes: General: no distress Eyes: normal inspection, PERLL Respiratory: chest non tender, clear to auscultation, normal breath sounds, no respiratory distress, no accessory muscle use Cardiac: regular rate and rhythm, no rub or gallop, 2/6 systolic murmur, no edema, no jvd GI/: active bowel sounds, no abd pain or tenderness, soft, non distended Extremities: normal range of motion, normal strength, non tender Neuro/Psych: alert and oriented x 3, normal mood and affect Skin: normal color, dry (Cristy Whittington CRNP) Laboratory Results Last 24 Hours Test 05/01/17 05:56 White Blood Count 5.37 K/uL Red Blood Count 5.22 M/uL Hemoglobin 15.5 g/dL Hematocrit 45.2 % Mean Corpuscular Volume 86.6 fL Mean Corpuscular Hemoglobin 29.7 pg Mean Corpuscular Hemoglobin Concent 34.3 g/dl RDW Standard Deviation 43.3 fL RDW Coefficient of Variation 13.8 % Platelet Count 165 K/uL Mean Platelet Volume 11.7 fL Sodium Level 137 mmol/L Potassium Level 4.2 mmol/L Chloride Level 100 mmol/L Carbon Dioxide Level 34 mmol/L Anion Gap 3.0 mmol/L Blood Urea Nitrogen 19 mg/dl Creatinine 1.30 mg/dl Est Creatinine Clear Calc Drug Dose 112.8 ml/min Estimated GFR () 76.4 Estimated GFR (Non- 65.9 BUN/Creatinine Ratio 14.5 Random Glucose 107 mg/dl Calcium Level 8.9 mg/dl Lyme Disease IgG Antibody NEG Lyme Disease IgM Antibody NEG (Cristy Whittington CRNP) Assessment and Plan Mr. Connolly is a 46 y/o here for lightheadedness and syncope. Syncope - Pacemaker interrogation negative and reviewed by cardiology - unclear etiology - may be partly due to over diuresis with furosemide, cardiology to place dual chamber pacer tomorrow - Orthostatics negative - CT did not find any PE however he does have several nodules, largest 7mm - Outpatient bone cooking operator has been contacted - follow-up with cardiology within 1 week from me. 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 Discussed with PAMELA Whittington and agree with findings and plan as documented in the note. Any exceptions or clarifications are listed here: Patient feels a little bit better today, less lightheaded. No longer orthostatic. Lyme disease test is negative. Still having pain of the left hip but is ambulating. Vitals reviewed, NAD, obese RRR 2/6 KIRTI at left sternal border CTAB no wcr Abd +BS soft NT ND, obese Ext trace pitting edema of legs bilat Skin no rashes 46 yo male with a h/o HCOM s/p myomectomy and AICD/single chamber pacer, Chronic diastolic CHF, h/o MVR, MEENU on CPAP, HTN, here with syncope and orthostasis with fall and left hip contusion -Check left hip x-ray -orthostasis resolved and lightheadedness improved, increased Lasix back to 100 mg by mouth twice a day which is his home dose, continue Aldactone 25 mg daily, but permanently discontinue metolazone -For his fatigue-we also checked Lyme titer which was negative, but could be negative early in course of illness, may need repeat in 2 weeks with PCP -appreciate Cardio recommendations-plan for dual-chamber pacemaker placement tomorrow -Pulm nodules will require repeat CT CHest in 3-6 months and can be ordered by PCP--> discussed with pt Documented By: Marilynn Briseno (Marilynn Briseno MD)
--- NOTE | 2017-05-01 15:49 | NUR ---
A:ID/ PT ALERT IN BED. RETURNED FROM SHOWER. ASSESSMENT COMPLETED. PT TO HAVE UPGRADE TO PACER TOMORROW. PT IS INDEPENDENT AT BASELINE. AND PLANS TO RETURN HOME ON D/C . CALL RAMIRES IN REACH WILL CONT TO MONITOR.
[2017-05-01 19:36] VITALS: BP_SYST 127; BP_SYST 147; BP_SYST 155; BP_DIAS 81; BP_DIAS 85; BP_DIAS 88; PULSE 61; TEMP 36.5; O2SAT 91
--- NOTE | 2017-05-01 20:10 | NUR ---
pt alert in bed. reassessment completed. denies needs. pt is NPO after midnight. verbalized understanding. call barkley in reach will cont to monitor.
--- NOTE | 2017-05-01 21:27 | DIAGNOSTIC IMAGING REPORT ---
LEFT HIP 2 VIEWS CLINICAL HISTORY: Fall with left hip pain. FINDINGS: AP and frog-leg views of the left hip are obtained. No prior studies are available for comparison at the time of dictation. The skeletal structures are well mineralized. No fracture is seen. The joint space of the left hip is well maintained. The overlying soft tissues are within normal limits. IMPRESSION: Unremarkable radiographic assessment of the left hip. Electronically signed by: Nicholas Vasquez M.D. 05/01/2017 9:25 PM Dictated Date/Time: 05/01/2017 9:25 PM
[2017-05-01] MEDS: ACETAMINOPHEN 325 MG TAB PO PRN (22:27)
[2017-05-01] MEDS: MoRPHine SULFATE 2 MG/ML CARP IV PRN (22:28)
--- NOTE | 2017-05-01 22:35 | NUR ---
provided pt with clipper for ordered skin prep for procedure tomorrow.
[2017-05-01 23:57] VITALS: PULSE 59; O2SAT 95
[2017-05-02] VITALS (16 sets, daily range): BP systolic 95–159; BP diastolic 56–89; PULSE 61–86; TEMP 36.3–36.9; O2SAT 90–97
--- NOTE | 2017-05-02 00:01 | NUR ---
PT ASSESSMENT COMPLETE. SEE EMR FOR DETAILS. PT RESTING IN BED. VSS ON CPAP. PT C/O PAIN TO LEFT HIP. RATES PAIN A 4 ON A SCALE OF 0-10. PT MEDICATED ON PREVIOUS SHIFT. ENCOURAGED TO RING FOR ASSISTANCE OR IF PAIN WORSENS. PT REMINDED OF NPO STATUS AT MIDNIGHT. VERBALIZES UNDERSTANDING. CALL RAMIRES WITHIN REACH. WILL CONTINUE TO MONITOR.
--- NOTE | 2017-05-02 04:00 | NUR ---
PT ASSESSMENT COMPLETE. SEE EMR FOR DETAILS. PT RESTING IN BED. VSS. ORTHOSTATIC BP'S +. PT C/O PAIN TO LEFT HIP MAIN. REFUSES PAIN MEDICATION AT THIS TIME. CALL RAMIRES WITHIN REACH. WILL CONTINUE TO MONITOR.
[2017-05-02] MEDS: HEPARIN SOD 5000 UNIT/0.5 ML CARP SQ SCH ×3 (05:04→20:39)
[2017-05-02] MEDS: MoRPHine SULFATE 2 MG/ML CARP IV PRN ×2 (05:08→12:06)
--- NOTE | 2017-05-02 05:12 | NUR ---
PT C/O LEFT HIP PAIN, MEDICATED WITH IV MORPHINE DUE TO NPO STATUS, SEE EMAR. AM HEPARIN NON-ADMINISTERED. PT SCHEDULED FOR OR THIS AM. CALL RAMIRES WITHIN REACH. WILL CONTINUE TO MONITOR.
[2017-05-02] MEDS ORDERED: CEFAZOLIN IV 3,000 MG in SYRINGE 0 ML IV SCH (06:00)
[2017-05-02] MEDS ORDERED: CEFAZOLIN SOD 1000MG/7.5 ML IV PUSH IV SCH (06:00)
[2017-05-02] MEDS ORDERED: LACTATED RINGER'S 1000ML 1,000 ML IV ONE (08:00)
--- NOTE | 2017-05-02 08:00 | NUR ---
A: c/o left hip pain, see Emar for pain mediation administration. NPO status maintained for pacer insertion. 20 jelco intact left hand, site clear. IVF LR started at KVO via 18 jelco right FA, site clear. denies difficulty voiding.
[2017-05-02] MEDS: FUROSEMIDE 40 MG TAB PO SCH ×2 (08:02→15:59)
[2017-05-02] MEDS: METOPROLOL TARTRATE 25 MG TAB PO SCH ×2 (08:02→20:38)
[2017-05-02] MEDS: ASPIRIN 81 MG ECTAB PO SCH (08:02)
[2017-05-02] MEDS: SPIRONOLACTONE 25 MG TAB PO SCH (08:03)
[2017-05-02] MEDS: TAMSULOSIN HCL 0.4 MG CAP PO SCH (08:03)
[2017-05-02] MEDS: OXYCODONE HCL IR 5 MG TAB (IMMEDIATE RELEASE) PO PRN ×3 (08:05→23:34)
[2017-05-02] MEDS: LIDODERM (LIDOCAINE) PATCH 5% TD SCH (08:05)
[2017-05-02] MEDS ORDERED: MIDAZOLAM HCL 5 MG/ML 1 ML VIAL ONE (09:31)
[2017-05-02] MEDS ORDERED: LIDOCAINE HCL 1% 20 ML VIAL ONE ×2 (09:32→09:56)
[2017-05-02] MEDS ORDERED: FENTANYL CITRATE INJ 50 MCG/1 ML 2 ML VIAL ONE ×2 (09:32→11:04)
[2017-05-02] MEDS ORDERED: BACITRACIN OINT 0.9 GM PKT ONE (09:32)
--- NOTE | 2017-05-02 09:35 | NUR ---
A: off unit for pacemaker insertion.
--- NOTE | 2017-05-02 09:36 | History & Physical Bridge Note ---
H&P Re-Evaluation Bridge Note: I have examined the patient, reviewed the History & Physical and in the interval since the performance of the History & Physical I have noted the following changes of clinical significance: No changes noted. I reviewed the procedure with him and his mother in his room and he is agreeable to continue.
--- NOTE | 2017-05-02 09:37 | Pre Sedation Assessment ---
Pre Sedation Assessment General Date of Sedation: May 02, 2017. Vital Signs Past 12 Hours Date Time Temp Pulse Resp B/P (MAP) Pulse Ox O2 Delivery O2 Flow Rate FiO2 05/02/17 07:38 36.6 69 20 125/72 (89) 95 BiPAP 05/02/17 04:00 Room Air 05/02/17 03:30 36.3 73 20 119/84 (96) 97 Room Air 81 144/80 (101) 81 127/86 (100) 05/02/17 00:01 36.9 61 20 95/56 (69) 94 CPAP 05/01/17 23:59 Room Air 05/01/17 23:57 59 95 21 Review Cardiovascular: regular rate, rhythm Lungs: lungs clear Pre-Sedation Airway Assessment Smoking Status: Never Smoker Hx of Sleep Apnea: Yes Hx of difficult intubation: No Short Thick Neck: Yes Thyro-mental Distance: < or =3 Finger Breadths Oral Cavity: WNL Mallampati Classification: Class II ASA Classification: Class III Procedure Planning Contraindications for Sedation: None Current Medications Reviewed: Yes Notes The planned sedation has been discussed with the patient. Informed Consent was obtained. I have identified the patient, determined the appropriateness of sedation and have assessed the patient immediately prior to the procedure. All medicine(s) and interventions are by my order.
[2017-05-02] MEDS ORDERED: CEFAZOLIN SOD 1 GM VIAL ONE (09:45)
[2017-05-02] MEDS ORDERED: MIDAZOLAM HCL 1 MG/ML 2ML VIAL ONE (11:04)
--- NOTE | 2017-05-02 11:46 | [facility] Operative Report ---
Operative Report Operative Date May 02, 2017. Pre-Operative Diagnosis Pacemaker syndrome Post-Operative Diagnosis same Procedure(s) Performed Left subclavian venogram Atrial lead implantation Dual-chamber ICD implantation Surgeon Dr. Medrano Mincemeat Maker Surgeon(s) none Estimated Blood Loss 50 cc Findings The left subclavian vein was patent and easily accessed. Atrial lead in good position. Single-chamber ICD upgraded to a dual-chamber ICD. Specimens Old ICD, return to Medtronic Anesthesia local with sedation Complication(s) None Disposition PCU Description of Procedure After obtaining informed consent for the procedure, dye was injected the left arm IV site to opacify the left subclavian vein. The subclavian vein was identified and found to be free of obstruction. The patient was brought to the laboratory and prepped and draped in the standard sterile manner. The left prepectoral region was anesthetized with 1% lidocaine local anesthetic and left axillary venipuncture was performed by percutaneous technique and a guidewire placed through the left subclavian vein into the superior vena cava. The area was further infiltrated with 1% lidocaine local anesthetic and a 6 cm incision was made along the lower margin of the prior device implant scar and carried down to the ICD. The ICD remained in the pocket at this time. An 8 Spanish Medtronic lead introducer was placed over the guidewire into the left subclavian vein, the dilator and guidewire were removed and a bipolar active fixation steroid tipped atrial lead was advanced through the introducer into the superior vena cava. A guidewire was placed back through the introducer and the introducer was stripped from the lead and guidewire. Using a curved stylette the atrial lead was positioned in the region of the atrial appendage and the screw extended fixing the lead in position. Pacing and sensing thresholds were evaluated in bipolar configuration and are recorded on the implant data sheet. Once the lead was in position it was attached to the anterior pectoralis fascia using 2 sutures of 2-0 silk around the lead collar. The guidewire was removed from the left subclavian vein. The single chamber ICD was then removed from the pocket, disconnected from the leads which were immediately connected to an external pacing system as the patient is pacer dependent. Ventricular pacing threshold was evaluated and was found to be acceptable. Details are recorded on the implant data sheet. A new ICD was therefore attached to the chronic ventricular defibrillator lead and the new atrial lead and the system was found to be functioning normally. The ICD pocket was increased slightly in the inferior and lateral direction to accommodate the new device and the new ICD was placed in the pocket with the leads coiled beneath it. The incision was closed with a running double subcutaneous closure of 3-0 V-Lock followed by a subcuticular skin closure of 4-0 V-Lock absorbable suture. Bacitracin ointment was applied to the incision and a pressure dressing applied. I attest to the content of the Intraoperative Record and any orders documented therein. Any exceptions are noted below.
--- NOTE | 2017-05-02 11:48 | Post Sedation Assessment ---
Post Sedation Assessment General Date of Sedation May 02, 2017. Vital Signs: Vital Signs Past 12 Hours Date Time Temp Pulse Resp B/P (MAP) Pulse Ox O2 Delivery O2 Flow Rate FiO2 05/02/17 11:25 85 16 167/90 (115) 98 Room Air 05/02/17 08:00 Room Air 05/02/17 07:38 36.6 69 20 125/72 (89) 95 BiPAP 05/02/17 04:00 Room Air 05/02/17 03:30 36.3 73 20 119/84 (96) 97 Room Air 81 144/80 (101) 81 127/86 (100) 05/02/17 00:01 36.9 61 20 95/56 (69) 94 CPAP 05/01/17 23:59 Room Air 05/01/17 23:57 59 95 21 Post Procedure Recovery Score Activity: (2) Moves 4 extremities * Respiration: (2) Deep breath/cough Circulation: (2) +/-20% PreAnes Value Consciousness: (2) Fully Awake Oxygen Saturation: (2) > 92% On Room Air Post Anesthesia Score: 10 Discharge Sedation Level of Care: Fast Track Phase II Post Sedation Plan On clinical assessment, the patient appears to have tolerated the sedation without complications. Patient is recovering as anticipated. Patient will continue to be monitored by nursing and may be discharged when sedation discharge criteria are met per below protocol. Upon Completions of procedure and additional 15 minutes continue every 5 minute vital signs and the P.A.R. score; then discharge to a Phase I or Fast Track to Phase II per the following guidelines: * Discharge Patient to appropriate Phase II area if PAR is 8 or greater or return to pre- procedure baseline. The post - procedure orders will be as directed. * If PAR score is less than 8 or not return to pre-procedure baseline then patient will follow Phase I monitoring till PAR is reached for Phase II. The Phase I may be done in procedure room or may call to secure a Phase I area. * If naloxone or flumazenil are used for reversal, hold in Phase I for an additional 60 -120 minutes before discharge to Phase II. Please call the Sedation Physician to re-evaluate and complete post-note for discharge to Phase II area. Do NOT discharge from procedure sedation or Phase 1 until post- sedation evaluation note is complete by procedure /sedation MD Sedation Discharge Instructions to be given to the patient at discharge to home.
--- NOTE | 2017-05-02 11:52 | Cardiology Follow-Up ---
Subjective Date of Service: May 02, 2017. Pt evaluation today including: conversation w/ patient, conversation w/ family , physical exam, lab review, review of studies, review of inpatient medication list History of Present Illness Patient feels well today, no complaints Social History Smoking Status: Never Smoker History of Alcohol Use: Yes (RARE BEER) Review of Systems Respiratory: No cough, No shortness of breath, No dyspnea at rest Cardiac: No chest pain, No edema, No palpitations Medications Cardiovascular: Item Value Date Time Furosemide 100 mg 05/01/17 1700 (Lasix Tab) BID17/PO 05/01/17 1536 Aspirin 81 mg 04/28/17 0900 (Ecotrin Tab) DAILY/PO 05/01/17 0744 Metoprolol 12.5 mg 04/28/17 0900 Tartrate BID/PO 05/01/17 1939 (Lopressor Tab) Spironolactone 25 mg 04/28/17 0900 (Aldactone Tab) DAILY/PO 05/01/17 0744 Objective Vital Signs Past 12 Hours Date Time Temp Pulse Resp B/P (MAP) Pulse Ox O2 Delivery O2 Flow Rate FiO2 05/02/17 04:00 Room Air 05/02/17 03:30 36.3 73 20 119/84 (96) 97 Room Air 81 144/80 (101) 81 127/86 (100) 05/02/17 00:01 36.9 61 20 95/56 (69) 94 CPAP 05/01/17 23:59 Room Air 05/01/17 23:57 59 95 21 Last Recorded Weight-Kilograms: 148.300 Physical Exam Constitutional: General Apperance: heathly-appearing Level of Distress: NAD Lungs: Respiratory effort: no dyspnea Auscultation: breath sounds normal, no wheezing, no rales/crackles, no rhonchi Cardiovascular: Heart Auscultation: RRR, no murmurs, no rubs, no gallops Extremities: no edema Data Telemetry reviewed: Pacing appropriately Assessment and Plan #1. Complete heart block: He remains in complete heart block, he is prepared for his surgery today. No changes from yesterday and no questions today. Thank you for allowing me to participate in his care.
[2017-05-02] MEDS ORDERED: ACETAMINOPHEN 325 MG TAB PO PRN (12:00)
--- NOTE | 2017-05-02 12:00 | NUR ---
A: returned to room at 1145. left chest dressing C/D/I. IVF infusing without difficulty. c/o pain, see Emar. consuming lunch without difficulty. denies difficulty voiding. assessment unchanged.
[2017-05-02] MEDS: ACETAMINOPHEN 325 MG TAB PO PRN (12:07)
--- NOTE | 2017-05-02 12:35 | NUR ---
biofuels technology manager [facility]: Follow up appt info added to the DC instructions - "Please, follow up at [facility] Cardiology Office. They will contact you directly to coordinate the appointment. *This office is located in [address] of [facility] next to this hospital. If you have any questions you can call the office at [phone]. Please, follow up with Dr. Alfred Davis on SaturdayMay 14 at 1:30 pm. *If you need to change this appointment you can call his office at [phone]." I called the [facility] and spoke w/ a medical economics consultant about the pt's pacemaker insertion today. She will notify the person who makes the arrangements for the pacer follow up appts and they will contact the pt directly w/ the appt details. Pt does have an appt in place w/ Dr. Millard on SaturdayMay 13 at 12:00 pm.
--- NOTE | 2017-05-02 14:04 | Hospitalist Progress Note ---
Hospitalist Progress Note Date of Service May 02, 2017. (Cristy Whittington .PAMELA) Subjective Pt evaluation today including: conversation w/ patient, physical exam Mr. Connolly is very drowsy following his pacer placement and morphine administration, however he does wake up to verbal stimulation and can answer my questions appropriately though he states he feels a bit confused. He reports that he became winded yesterday while showering ROS Constitutional: no chills, aches, sweats or fever Respiratory: no sob,cough, sputum, or wheezing Cardiac: no chest pain, palpitations, edema, orthopnea or lightheadedness GI: no abdominal pain, nausea, vomiting, diarrhea or constipation : no dysuria or hesitancy Extremities: no joint pain or weakness Skin: no rash All Other Systems: Reviewed and Negative (Cristy Whittington CRNP) Medications Medications (Trade) Dose Ordered Sig/Ida Route Start Time Stop Time Status Last Admin Dose Admin Lactated Ringer's 1,000 ml @ 15 mls/hr Q24H ONCE IV 05/02/17 08:00 05/03/17 07:59 05/02/17 08:01 15 MLS/HR Furosemide (Lasix Tab) 100 mg BID17 PO 05/01/17 17:00 05/31/17 16:59 05/02/17 08:02 100 MG Midazolam HCl (Versed Inj) 5 mg STK-MED ONCE .ROUTE 05/02/17 09:31 05/02/17 09:32 DC 05/02/17 09:31 4 MG Fentanyl Citrate (Fentanyl Inj) 100 mcg STK-MED ONCE .ROUTE 05/02/17 09:32 05/02/17 09:33 DC 05/02/17 09:32 100 MCG Bacitracin (Bacitracin Oint) 1 appln STK-MED ONCE .ROUTE 05/02/17 09:32 05/02/17 09:33 DC 05/02/17 09:32 1 APPLN Lidocaine HCl (Xylocaine 1% Inj (Local)) 20 ml STK-MED ONCE .ROUTE 05/02/17 09:32 05/02/17 09:33 DC 05/02/17 09:32 20 ML Cefazolin Sodium (Ancef Inj) 3,000 mg STK-MED ONCE .ROUTE 05/02/17 09:45 05/02/17 09:46 DC 05/02/17 09:45 3,000 MG Lidocaine HCl (Xylocaine 1% Inj (Local)) 20 ml STK-MED ONCE .ROUTE 05/02/17 09:56 05/02/17 09:57 DC 05/02/17 09:56 20 ML Fentanyl Citrate (Fentanyl Inj) 100 mcg STK-MED ONCE .ROUTE 05/02/17 11:04 05/02/17 11:05 DC 05/02/17 11:04 100 MCG Midazolam HCl (Versed Inj) 2 mg STK-MED ONCE .ROUTE 05/02/17 11:04 05/02/17 11:05 DC 05/02/17 11:04 1 MG (Cristy Whittington, PAMELA) Objective Vital Signs Date Time Temp Pulse Resp B/P (MAP) Pulse Ox O2 Delivery O2 Flow Rate FiO2 05/02/17 12:45 85 18 109/75 (86) 96 Room Air 05/02/17 12:30 86 18 122/84 (97) 96 Room Air 05/02/17 12:15 83 18 117/78 (91) 94 Room Air 05/02/17 12:00 Room Air 05/02/17 12:00 80 18 111/69 (83) 94 Room Air 05/02/17 11:45 36.6 86 18 119/70 (86) 92 Room Air 05/02/17 11:35 82 16 154/80 (104) 98 Room Air 05/02/17 11:25 85 16 167/90 (115) 98 Room Air 05/02/17 08:00 Room Air 05/02/17 07:38 36.6 69 20 125/72 (89) 95 BiPAP 05/02/17 04:00 Room Air 05/02/17 03:30 36.3 73 20 119/84 (96) 97 Room Air 81 144/80 (101) 81 127/86 (100) 05/02/17 00:01 36.9 61 20 95/56 (69) 94 CPAP 05/01/17 23:59 Room Air 05/01/17 23:57 59 95 21 05/01/17 20:00 Room Air 05/01/17 19:36 36.5 61 18 155/88 (110) 91 Room Air 127/81 (96) 147/85 (105) 05/01/17 16:00 Room Air 05/01/17 15:29 36.3 65 18 138/87 (104) 95 Room Air (Cristy Whittington CRNP) Physical Exam Notes: General: no distress Eyes: normal inspection, PERLL Respiratory: chest non tender, clear to auscultation, normal breath sounds, no respiratory distress, no accessory muscle use Cardiac: regular rate and rhythm, no rub or gallop, no murmur, no edema, no jvd GI/: active bowel sounds, no abd pain or tenderness, soft, non distended Extremities: normal range of motion, normal strength, non tender Neuro/Psych: drowsy and oriented x 3, normal mood and affect Skin: normal color, dry (Cristy Whittington CRNP) Assessment and Plan Mr. Connolly is a 46 y/o here for lightheadedness and syncope. Syncope - Pacemaker interrogation negative and reviewed by cardiology - unclear etiology - may be partly due to over diuresis with furosemide, s/p dual chamber pacer 05/02 - Orthostatics negative - CT did not find any PE however he does have several nodules, largest 7mm - Outpatient residential electrician has been contacted - follow-[place] with cardi[place] - Cardiology, recommend returning to 100 mg bid lasix, metolozone d/c'd Diastolic CHF Cardiomyopathy - we will continue his B pipe and Aldactone - lasix, metolozone as above - Echo unchanged from previous in November Elevated trop - is chronic - stable MEENU - CPAP provided HTN - cont Metoprolol, Aldactone DVT ppx: heparin subq CODE STATUS: Full code Disposition: Patient from home (Cristy Whittington CRNP) Reviewed: Pt Seen/Exam by Me (Marilynn Briseno MD) History INSPECTOR GENERAL Supervision Note: I interviewed and examined the patient. Discussed with PAMELA Whittington and agree with findings and plan as documented in the note. Any exceptions or clarifications are listed here: Having pain at pacer site, otherwise no lightheadedness Vitals reviewed, NAD, obese RRR 2/6 KIRTI at left sternal border CTAB no wcr Abd +BS soft NT ND, obese Ext trace pitting edema of legs bilat Skin no rashes 46 yo male with a h/o HCOM s/p myomectomy and AICD/single chamber pacer, Chronic diastolic CHF, h/o MVR, MEENU on CPAP, HTN, here with syncope and orthostasis with fall and left hip contusion, now status post upgraded to dual chamber pacemaker - left hip x-ray negative -orthostasis resolved and lightheadedness improved, increased Lasix back to 100 mg by mouth twice a day which is his home dose, continue Aldactone 25 mg daily, but permanently discontinue metolazone -For his fatigue-we also checked Lyme titer which was negative, but could be negative early in course of illness, may need repeat in 2 weeks with PCP -appreciate Cardio-follow up with cardiology as an outpatient as scheduled within 1 month -Pulm nodules will require repeat CT CHest in 3-6 months and can be ordered by PCP--> discussed with pt Documented By: Marilynn Briseno (Marilynn Briseno MD)
[2017-05-02] MEDS: KETOROLAC TROMETHAMINE 10 MG TAB PO PRN (15:58)
--- NOTE | 2017-05-02 16:00 | NUR ---
A: Patient resting in bed. Denies SOB. Medicated for left chest incisional pain. Paced on the monitor. is at the bedside. Call barkley is in reach.
--- NOTE | 2017-05-02 16:28 | NUR ---
Case Management: Case find d/t LOS > 5 days. Pt lives with his mother in a ranch home. Pt is independent with ADLs, ambulation, and driving. Pt has CPAP at home supplied by [facility]. No discharge needs identified. Case Management to follow.
[2017-05-02] MEDS: CEFAZOLIN IV 2,000 MG in SYRINGE 0 ML IV SCH (17:35)
[2017-05-02] MEDS ORDERED: CEFAZOLIN IV 2,000 MG in DEXTROSE 5% 50ML 50 ML IV SCH (18:00)
--- NOTE | 2017-05-02 20:00 | NUR ---
A: Patient resting in bed. Denies any pain or SOB. Paced on the monitor. One assist with ambulation. Call barkley is in reach.
--- NOTE | 2017-05-03 | NUR ---
A. Patient assessed, resting in bed. He is AAOx4, pleasant and cooperative. He is denying any chest pain or SOB. VSS. V paced on the monitor. He is reporting left shoulder incisional pain, will treat with PRN medications. Dressing C/D/I. He was reminded on post-op instructions. CPAP placed on patient. Tolerating diet. IV intact and patent. Repositioning well on own without dizziness. He was instructed not to get up OOB without staff present. Call barkley within reach.
[2017-05-03] MEDS: KETOROLAC TROMETHAMINE 10 MG TAB PO PRN ×2 (02:08→12:41)
[2017-05-03] MEDS: CEFAZOLIN IV 2,000 MG in SYRINGE 0 ML IV SCH ×2 (02:08→10:00)
--- NOTE | 2017-05-03 04:00 | NUR ---
A. Patient reassessed, no changes at this time. On/off incisional pain. Denies any SOB. VSS. Paced. Repositioning on own. Voiding in urinal. CPAP on/off throughout the night, not sleeping much. Using call barkley appropriately.
[2017-05-03 04:06] VITALS: BP 116/76; PULSE 88; PULSE 94; TEMP 37.7; O2SAT 4; O2SAT 94
[2017-05-03] MEDS: HEPARIN SOD 5000 UNIT/0.5 ML CARP SQ SCH (06:22)
--- NOTE | 2017-05-03 06:27 | NUR ---
Patient off floor to xray
[2017-05-03 07:33] VITALS: BP 119/75; PULSE 71; TEMP 36.8; O2SAT 94
[2017-05-03 07:38] LABS: CREATININE 1.54 mg/dl (0.60-1.40); POTASSIUM 3.8 mmol/L (3.5-5.1)
--- NOTE | 2017-05-03 07:38 | DIAGNOSTIC IMAGING REPORT ---
TWO VIEW CHEST CLINICAL HISTORY: Status post pacemaker lead implantation. FINDINGS: PA and lateral chest radiographs are compared to study dated 04/27/2017 and correlated with chest CT dated 04/30/2017. The patient is status post midline sternotomy. A 2-lead cardiac AICD partially obscures the left upper chest. Leads project over the right shoulder and it and the right ventricle. The heart is enlarged. The pulmonary vasculature is noncongested. Chronic interstitial thickening is similar to previous. No airspace consolidation or pleural effusion is identified. There is no pneumothorax. The bony thorax appears intact. IMPRESSION: 1. Cardiomegaly and 2-lead AICD as above. There is no radiographic evidence of congestive failure. 2. No pneumothorax is identified post procedure. 3. No airspace consolidation or pleural effusion is seen. Electronically signed by: Nicholas Vasquez M.D. 05/03/2017 7:37 AM Dictated Date/Time: 05/03/2017 7:30 AM
[2017-05-03] MEDS: OXYCODONE HCL IR 5 MG TAB (IMMEDIATE RELEASE) PO PRN (07:42)
[2017-05-03] MEDS: LIDODERM (LIDOCAINE) PATCH 5% TD SCH (07:42)
[2017-05-03] MEDS: SPIRONOLACTONE 25 MG TAB PO SCH (07:43)
[2017-05-03] MEDS: FUROSEMIDE 40 MG TAB PO SCH (07:44)
[2017-05-03] MEDS: ASPIRIN 81 MG ECTAB PO SCH (07:45)
[2017-05-03] MEDS: METOPROLOL TARTRATE 25 MG TAB PO SCH (07:45)
[2017-05-03] MEDS: TAMSULOSIN HCL 0.4 MG CAP PO SCH (07:45)
--- NOTE | 2017-05-03 08:00 | NUR ---
A: Pt. is A&Ox4, c/o CALIXTO, denies dizziness. Telemetry intact showing v paced rhythm in 70s-80s. Denies CP. Denies SOB or difficulty breathing on RA. Lungs cta. Denies n/v/d, no abd pain. voiding in urinal. Left chest dressing intact, appears to have some blood on dressing. Pt. states it is painful and tender at site. Appears slightly reddened immediately below dressing. Will notify cardiologists. See EMR for full head to toe assessment and pain medication administration. Call barkley within reach, all needs addressed. Will continue to closely monitor.
--- NOTE | 2017-05-03 09:27 | NUR ---
Dr. Millard and Wire Winder NICOLE at bedside putting microfoam tape on left chest dressing, which is causing severe pain to patient and oozing. Dressing is bloody. Changed at this time by cardiologists. Will continue to closely monitor
--- NOTE | 2017-05-03 10:07 | Cardiology Follow-Up ---
Subjective Date of Service: May 03, 2017. Pt evaluation today including: conversation w/ patient, physical exam, chart review, lab review, review of studies, review of inpatient medication list, conversation w/ attending History of Present Illness Mr. Connolly underwent atrial lead implantation yesterday with Dr. Medrano. He reports that the pacer site is very tender. He feels that his breathing is at his baseline. He denies chest pain or edema. He reports lightheadedness with standing quickly, which lasts a few seconds in duration. He denies syncope or presyncope. Social History Smoking Status: Never Smoker History of Alcohol Use: Yes (RARE BEER) Objective Vital Signs Past 12 Hours Date Time Temp Pulse Resp B/P (MAP) Pulse Ox O2 Delivery O2 Flow Rate FiO2 05/03/17 08:00 Room Air 05/03/17 07:33 36.8 71 17 119/75 (90) 94 05/03/17 04:06 37.7 88 20 116/76 (89) 94 CPAP 05/03/17 04:00 Room Air 05/02/17 23:59 Room Air 05/02/17 23:50 66 97 21 05/02/17 23:38 36.7 84 18 117/73 (88) 94 Room Air Last Recorded Weight-Kilograms: 150.700 Physical Exam Constitutional: General Apperance: heathly-appearing Level of Distress: NAD Lungs: Respiratory effort: no dyspnea Auscultation: breath sounds normal, no wheezing, no rales/crackles, no rhonchi Cardiovascular: Heart Auscultation: RRR, no murmurs, no rubs, no gallops Extremities: no edema Pacemaker site is oozing bright red blood, and there is ecchymosis extending toward his axillary region. Data Laboratory Results: Last 24 Hours Test 05/03/17 06:20 Sodium Level 133 mmol/L Potassium Level 3.8 mmol/L Chloride Level 96 mmol/L Carbon Dioxide Level 30 mmol/L Anion Gap 7.0 mmol/L Blood Urea Nitrogen 29 mg/dl Creatinine 1.54 mg/dl Est Creatinine Clear Calc Drug Dose 95.1 ml/min Estimated GFR () 62.2 Estimated GFR (Non- 53.7 BUN/Creatinine Ratio 18.7 Random Glucose 105 mg/dl Calcium Level 9.0 mg/dl CXR: 1. Cardiomegaly and 2-lead AICD as above. There is no radiographic evidence of congestive failure. 2. No pneumothorax is identified post procedure. 3. No airspace consolidation or pleural effusion is seen. Echo: 1. Normal left ventricular size and systolic function. EF 60-65%. [place] appears hypokinetic to akinetic; otherwise, normal wall motion. Severe asymmetric hypertrophy of the anteroseptal base, measuring approximately 2.8 cm otherwise, moderate concentric left ventricular hypertrophy. 2. The left atrium is mildly dilated. 3. Mild aortic regurgitation. 4. No significant LVOT obstruction suggested. 5. Technically difficult study, enhanced with IV Definity. 6. No significant change from prior study on 11/29/2016. EKG: Atrial-sensed ventricular-paced rhythm. 79 bpm. Device check showed excellent sensing and pacing characteristics. Assessment and Plan ASSESSMENT/PLAN: 1. Chronic diastolic congestive heart failure: His creatinine makeda this morning , and he has been having some orthostatic symptoms. His Lasix will therefore be decreased to 100 mg daily. He was advised to drink plenty of fluids today. Continue to monitor PRP daily. Low sodium diet recommended. Check daily weights and strict I's and O's. 2. Atrioventricular dissociation: He underwent atrial lead implantation with Dr. Medrano yesterday. His device check this morning showed excellent sensing and pacing characteristics. CXR showed good lead placement with no evidence of pneumothorax. His incision site was oozing some bright red blood this morning, therefore, a compression dressing was placed. His SQ heparin was also held. Will continue to monitor the incision site to ensure the bleeding stops. 3. Mitral valve repair: No mitral valve stenosis and only trace mitral regurgitation noted with echocardiogram. 4. Hypertrophic cardiomyopathy status post myomectomy: No significant LVOT obstruction suggested by echo. 5. Disposition: Will continue to follow along during patient's hospitalization.
[2017-05-03 11:36] VITALS: BP 130/80; PULSE 76; TEMP 36.8; O2SAT 95
--- NOTE | 2017-05-03 12:00 | NUR ---
A: Assessment unchanged. Pt. resting in room at this time. Denies any new complaints, except some pain at left chest surgical site. Pt. given oxycodone this morning which seemed to work well. VSS. No new needs at this time. Will continue to closely monitor
--- NOTE | 2017-05-03 14:35 | NUR ---
Case Management Note- Patient lives with his mother in a ranch style home. Patient is independent with ADLs, ambulation, and driving. Patient has a CPAP at home, supplied by [facility]. Plan remains for patient to return home at discharge. Case Management to follow.
[2017-05-03 15:54] LABS: CALCIUM 8.6 mg/dl (8.5-10.1); CREATININE 1.41 mg/dl (0.60-1.40); POTASSIUM 3.9 mmol/L (3.5-5.1)
[2017-05-03] MEDS ORDERED: LSX40 PO (15:55)
[2017-05-03 15:57] VITALS: BP 126/80; PULSE 80; TEMP 37; O2SAT 92
--- NOTE | 2017-05-03 16:00 | NUR ---
A: Sitting at bedside with significant other at this time. No new needs. VSS. No drainage from left chest surgical site since this AM. Has not mentioned any new pain since 1245. Will continue to closely monitor.
--- NOTE | 2017-05-03 16:07 | Discharge Instructions ---
Discharge Instructions Date of Service May 03, 2017. Admission Reason for Admission: Syncope Discharge Discharge Diagnosis / Problem: Syncope, s/p dual chamber pacer placment Discharge Goals Goal(s): Decrease discomfort, Improve function, Therapeutic intervention Activity Recommendations Activity Limitations: resume your previous activity Lifting Limitations: none Exercise/Sports Limitations: as tolerated Driving or Machine Use: no limitations . Instructions / Follow-Up Instructions / Follow-Up FU with Dr. Millard on Saturday at his clinic ACTIVITY RECOMMENDATIONS: * Do not raise affected arm over head for 2 weeks. SPECIAL CARE INSTRUCTIONS: * If bleeding occurs, apply direct pressure to area for 5 minutes. * Call your doctor if you have severe pain, fever, drainage or bleeding at site. * Keep dressing on and dry for 48 hours then remove. * Keep any scheduled doctor's appointment. * Implant Card - hand held device with website information given. SKIN IRRITATION: * You may experience some redness and/or swelling in the area where radiation was administered. If any skin irritation occurs, please contact your family physician. FOLLOW UP VISIT: Keep any scheduled doctor appointments. Call your Primary Care doctor if any of the following symptoms or problems start or get worse: * Shortness of breath or difficulty breathing * Wake up at night short of breath * Chest pain * Cough * Swelling of your hands, feet, or legs * More fatigued or tired with your normal activity * Palpitations - sudden fast heart beats WEIGHT * Weigh yourself every morning after using the bathroom. * Use the same scale. * Wear the same amount of clothing. * Write your weight down on a chart. * Call your Primary Care doctor if you gain more than 2-3 pounds in 1-2 days. MEDICATIONS * Use this discharge instruction sheet for medication instructions. * Take your medications at the time your doctor ordered. * Do not skip a dose of your medicines. * If you miss a dose of medicine, take it as soon as possible, but DO NOT DOUBLE A DOSE. * Read your medicine information when you get home. * Know all of the side effects of your medicine. If in doubt, ask your pharmacist * Call your Primary Care doctor's office if you have any side effects. * Be sure all of your doctors know what medicine and herbs you take (including cold, flu, and herbal medicine). Take the following with you to your follow-up doctor appointments: * Weight Chart * Medication List * List of questions Do not drink excessive alcohol, beer or wine. Current Hospital Diet Patient's current hospital diet: AHA Diet (Heart Healthy), Low Sodium Diet (2gm Na) Discharge Diet Recommended Diet: AHA Diet (Heart Healthy), Low Sodium Diet (2gm Na) Procedures Procedures Performed: Chest X ray Chest CT Hip X-ray Dual chamber pacer placement Pending Studies Studies pending at discharge: no Medical Emergencies . Who to Call and When: Call 911 or go to the Emergency Room if: * If at any time you feel your situation is an emergency * You have tightness or pain in your chest that does not go away with rest or Nitroglycerin * You are very short of breath even with rest . Non-Emergent Contact Non-Emergency issues call your: Primary Care Provider, After School Program Teacher Call Non-Emergent contact if: you have any medication questions . Past History Medical & Surgical History: (1) Dyspnea on exertion (2) Syncope (3) Acute on chronic diastolic (congestive) heart failure . "Provider Documentation" section prepared by Cristy Whittington. . VTE Core Measure Inpt VTE Proph given/why not?: Enoxaparin (Lovenox)SQ
--- NOTE | 2017-05-03 16:33 | Discharge Summary ---
Discharge Summary Date of Service May 03, 2017. Discharge Summary Admission Date: May 02, 2017 at 08:58 Discharge Date: Apr 29, 2017 Discharge Disposition: Home Principal Diagnosis: Syncope Problems/Secondary Diagnoses: Syncope Hypertrophic obstructive cardiomyopathy Chronic Diastolic CHF Dual chamber pacer placement Elevated troponin MEENU HTN Pulmonary nodules left hip contusion Obesity, BMI 41.5 Immunizations: Have You Had Influenza Vaccine: Yes History of Tetanus Vaccine?: Yes History of Pneumococcal: Yes History of Hepatitis B Vaccine: No Procedures: Dual chamber pacer placement 05/[address] Goldstein TWO VIEW CHEST CLINICAL HISTORY: Status post pacemaker lead implantation. FINDINGS: PA and lateral chest radiographs are compared to study dated 04/27/2017 and correlated with chest CT dated 04/30/2017. The patient is status post midline sternotomy. A 2-lead cardiac AICD partially obscures the left upper chest. Leads project over the right shoulder and it and the right ventricle. The heart is enlarged. The pulmonary vasculature is noncongested. Chronic interstitial thickening is similar to previous. No airspace consolidation or pleural effusion is identified. There is no pneumothorax. The bony thorax appears intact. IMPRESSION: 1. Cardiomegaly and 2-lead AICD as above. There is no radiographic evidence of congestive failure. 2. No pneumothorax is identified post procedure. 3. No airspace consolidation or pleural effusion is seen. LEFT HIP 2 VIEWS CLINICAL HISTORY: Fall with left hip pain. FINDINGS: AP and frog-leg views of the left hip are obtained. No prior studies are available for comparison at the time of dictation. The skeletal structures are well mineralized. No fracture is seen. The joint space of the left hip is well maintained. The overlying soft tissues are within normal limits. IMPRESSION: Unremarkable radiographic assessment of the left hip. (CHEST FOR PE) ANGIO WITH CLINICAL HISTORY: 46 years-old Male presenting with syncope and clinical concern for pulmonary embolus. TECHNIQUE: Multidetector CT angiography of the chest was performed after administration of intravenous contrast. 3-D volumetric and/or maximum intensity projection (MIP) images were subsequently reconstructed for review. IV contrast: 92 mL of Optiray 320. A dose lowering technique was used consistent with the principles of ALARA (as low as reasonably achievable). COMPARISON: 04/04/2016. CT DOSE (mGy.cm): The estimated cumulative dose is 735.15 mGy.cm. FINDINGS: Commissioning Specialist topogram: Left subclavian implanted cardiac defibrillator with lead to the right ventricular apex. Median sternotomy wires and cardiomegaly noted. Pulmonary vasculature: The study is adequate for assessment of the pulmonary vascular tree. No filling defect within the pulmonary arteries to suggest embolus. Main pulmonary artery is enlarged measuring 3.7 cm in transverse dimension. No flattening of the interventricular septum. No intracardiac intracardiac filling defect. There is reflux of contrast into the hepatic veins. Remaining chest: On soft tissue windows, normal thyroid and thoracic inlet. No axillary, supraclavicular, hilar, or mediastinal lymphadenopathy. Normal aorta. Hypertrophy of the ventricular septum. Overall normal heart size. No pericardial or pleural effusion. Upper abdomen normal. On lung windows, Mosaic attenuation could suggest small airways disease. Solid fissural 7 mm nodule in the anterior right upper lobe (series 4 image 135). Several smaller solid nodules in the right upper and middle lobes noted subpleural solid 6 mm nodule in the right lower lobe (series 4 image 128). Solid fissural 5 mm nodule at the left apex (series 4 image 234). Airways patent. On bone windows, normal osseous structures. IMPRESSION: 1. No evidence of pulmonary embolus. No acute intrathoracic pathology. 2. Mosaic attenuation could suggest small airways disease. 3. Multiple bilateral solid pulmonary nodules measuring up to 7 mm. Follow-up per Gabriel Society 2017 recommendations below. 4. Hypertrophy of the ventricular septum, which could suggest concentric hypertrophy. Consultations: Dr. Goldstein for EP Dr. Hogan from cardiology Medication Reconciliation New Medications: Furosemide (Furosemide) 40 Mg Tab 100 MG PO DAILY for 30 Days, #75 TAB Continued Medications: Aspirin (Aspirin Ec) 81 Mg Tab 81 MG PO DAILY Fluticasone Furoate-Vilanterol (Breo Ellipta 200-25 Mcg/INH) 1 Inh Inh 1 PUFF INH DAILY Metoprolol Tartrate (Lopressor) (Lopressor) 25 Mg Tab 12.5 MG PO BID Oxycodone Ir (Roxicodone Ir) 5 Mg Tab 1-2 TAB PO Q4H PRN for Pain, #15 TAB For Initial Treatment Potassium Ext Rel (Klor-Con) 20 Meq Tabcr 20 MEQ PO DAILY, TAB Spironolactone (Aldactone) 25 Mg Tab 25 MG PO DAILY, TAB Tamsulosin Hcl (Flomax) 0.4 Mg Cap 0.4 MG PO DAILY, CAP Discontinued Medications: Furosemide (Lasix) 40 Mg Tab 100 MG PO BID, TAB TAKE 2 & 1/2 TABS BID. Metolazone (Zaroxolyn) 2.5 Mg Tab 2.5 MG PO Q2D, TAB Discharge Exam ROS Constitutional: no chills, aches, sweats or fever Respiratory: no sob,cough, sputum, or wheezing Cardiac: no chest pain, palpitations, edema, orthopnea or lightheadedness GI: no abdominal pain, nausea, vomiting, diarrhea or constipation : no dysuria or hesitancy Extremities: no joint pain or weakness Skin: no rash, tender left chest Exam General: no distress Eyes: normal inspection, PERLL Respiratory: chest non tender, clear to auscultation, normal breath sounds, no respiratory distress, no accessory muscle use Cardiac: regular rate and rhythm, no rub or gallop, no murmur, no edema, no jvd GI/: active bowel sounds, no abd pain or tenderness, soft, non distended Extremities: normal range of motion, normal strength, non tender Neuro/Psych: alert and oriented x 3, normal mood and affect Skin: normal color, dry, left pressure dressing, ecchymosis right chest Hospital Course Mr. Connolly is a 46 y/o M w/Hx hypertrophic, obstructive cardiomyopathy, HTN, diastolic CHF, AICD/pacer placement, MEENU, obesity. He became lightheaded, shaky and then suffered a syncopal episode in his bathroom after bending over and getting back up on day of admission. His daughter told him he passed out twice, but he did not remember this. He continued to feel poorly in a standing position and presented to the ER for evaluation. A pacer interrogation did not reveal any abnormalities. He was unable to comply with orthostatics in the ER as he became markedly lightheaded sitting up or standing. Initial labs revealed a (+) troponin, however, this is chronic and improved compared to baseline. Syncope - Pacemaker interrogation negative and reviewed by cardiology - unclear etiology - may be partly due to over diuresis with furosemide - Cardiology felt changing to a dual chamber pacer may help his lightheadedness - s/p dual chamber pacer 05/02 - Orthostatics negative - Metolozone d/c'd, lasix reduced due to kidney function - no PE on CT Pulmonary nodules on CT -Several nodules, largest 7mm - Per Gabriel criteria: Multiple nodules; size 6-8 mm * Low risk patients: CT at 3-6 months, then consider CT at 18-24 months * High risk patients: CT at 3-6 months, then at 18-24 months NELLY - Creatinine 1.5 - Per cardiology - continue reduced lasix at 100 mg daily, bid discontinued - repeat prp in 1-2 days. Diastolic CHF, Cardiomyopathy - continue his B pipe and Aldactone - lasix, metolozone as above - Echo unchanged from previous in November Elevated trop - is chronic - stable MEENU - CPAP provided HTN - cont Metoprolol, Aldactone Total Time Spent: Greater than 30 minutes This includes examination of the patient, discharge planning, medication reconciliation, and communication with other providers. Discharge Instructions Please refer to the electronic Patient Visit Report (Discharge Instructions) for additional information. Follow-Up Cardiology on Saturday with Dr. Venice Davis on SaturdayMay 14 at 1:30 pm. Additional Copies To Lucio Millard MD; Alfred Davsi M.D. 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 Discussed with PAMELA Whittington and agree with findings and plan as documented in the note. Any exceptions or clarifications are listed here: Had some bleeding at pacer site wound this AM, now resolved with pressure dressing. Having post-op pain at that site as well as continued left hip pain from his fall. No SOB, still a bit lightheaded with standing at times Vitals reviewed, NAD, obese RRR 2/6 KIRTI at left sternal border CTAB no wcr Abd +BS soft NT ND, obese Ext no edema, left upper chest wall with dressing in place, c/d/i 46 yo male with a h/o HCOM s/p myomectomy and AICD/single chamber pacer, Chronic diastolic CHF, h/o MVR, MEENU on CPAP, HTN, here with syncope and fall and left hip contusion thought to be from over-diuresis, now status post upgraded to dual chamber pacemaker. - left hip x-ray negative - lightheadedness improved, will send out on decreased dose of Lasix 100 mg once daily, continue Aldactone 25 mg daily, but permanently discontinue metolazone -For his fatigue-we also checked Lyme titer which was negative, but could be negative early in course of illness, may need repeat in 2 weeks with PCP -appreciate Cardio-follow up with cardiology as an outpatient next week for wound check and to monitor diuretic need -Pulm nodules will require repeat CT CHest in 3-6 months and can be ordered by PCP--> discussed with pt Documented By: Marilynn Briseno
--- NOTE | 2017-05-03 17:25 | NUR ---
Pt. is stable for d/c per Dr. Briseno. Will complete discharge assessment and send home when ordered
[2017-05-03] MEDS ORDERED: RXC5 PO (17:26)
[2017-05-03 17:43] VITALS: BP 126/80; PULSE 80; TEMP 37; O2SAT 92
--- NOTE | 2017-05-03 18:13 | NUR ---
Pt. received discharge instructions and verbalized understanding of information and follow-up appointments. IV removed from left hand, dry dressing applied. Telemetry removed and left in room. D/c in stable condition to home with belongings.
[2017-05-04] MEDS ORDERED: FUROSEMIDE 40 MG TAB PO SCH (09:00)
[2017-08-01] MEDS ORDERED: ASPI81TA28 PO (09:14)
[2017-08-01] MEDS ORDERED: SPIR25TA PO (15:01)
[2017-10-23] MEDS ORDERED: FRS/40 PO (10:42)
== END 2017-05-03 18:25 | disposition home or self-care (01) | DRG 227 ==
LOC: EDBD 20:19 → C.EDA 20:20 → C.2T 23:24 → ENRESERV 04-28 00:04 → OBSVTOIN 05-02 08:58
PROVIDERS: ADMIT Internal Medicine; ATTEND Family Medicine
PROC: 02H63KZ Insertion of Defibrillator Lead into Right Atrium, Percutaneous Approach (ICD-10-PCS; principal; 2017-05-02 09:00)
PROC: 0JH608Z Insertion of Defibrillator Generator into Chest Subcutaneous Tissue and Fascia, Open Approach (ICD-10-PCS; principal; 2017-05-02 09:00)
PROC: 0JPT0PZ Removal of Cardiac Rhythm Related Device from Trunk Subcutaneous Tissue and Fascia, Open Approach (ICD-10-PCS; principal; 2017-05-02 09:00)
DX: R55 Syncope and collapse (principal); I50.32 Chronic diastolic (congestive) heart failure; I42.1 Obstructive hypertrophic cardiomyopathy; Z68.41 Body mass index [BMI] 40.0-44.9, adult; I44.2 Atrioventricular block, complete; T50.1X5A Adverse effect of loop [high-ceiling] diuretics, initial encounter; S70.02XA Contusion of left hip, initial encounter; R78.89 Finding of other specified substances, not normally found in blood; R91.8 Other nonspecific abnormal finding of lung field; G47.33 Obstructive sleep apnea (adult) (pediatric); I11.9 Hypertensive heart disease without heart failure; I25.2 Old myocardial infarction; E66.01 Morbid (severe) obesity due to excess calories; Z51.81 Encounter for therapeutic drug level monitoring; Z79.899 Other long term (current) drug therapy; Z79.82 Long term (current) use of aspirin; Z87.891 Personal history of nicotine dependence; Z83.3 Family history of diabetes mellitus; W18.39XA Other fall on same level, initial encounter; Y92.002 Bathroom of unspecified non-institutional (private) residence as the place of occurrence of the external cause; Y99.8 Other external cause status

== ENCOUNTER → 2017-05-21 | Outpatient (CLI) | payer OTHER ==
[~2017-05-21] MED LIST changes: +ASPI81TA28 PO; -LSX/40 PO; +LSX40 PO; -METO2.5T PO; -OXYC-90 PO; +POTA20TA16 PO; +RXC5 PO; +SPIR25TA PO; +TAMS0.4C38 PO
--- NOTE | 2017-05-21 13:54 | DIAGNOSTIC IMAGING REPORT ---
LUMBAR SPINE WITHOUT CLINICAL HISTORY: Low back pain with radiculopathy. History of fall. COMPARISON STUDY: No previous studies for comparison. FINDINGS: For purposes of numbering on this exam, the L5-S1 disc space is assigned to axial image 347 of 409. There is a suspected hemangioma within L1 vertebral body. There is no fracture or suspicious lesion within the lumbar spine by CT. Paravertebral soft tissues are unremarkable. There is mild bilateral sacroiliac joint osteoarthritis. A few suspected bone islands are noted. There is mild disc space narrowing at L5-S1. Central canal and neural foramen are suboptimally assessed by CT. The central canal and neural foramen appear patent at the L1-L2, L2-L3 and L3-L4 levels. There may be minimal disc bulge L4-L5 without significant central canal or neural foraminal stenosis. There is a suspected central/right paracentral disc protrusion at L5-S1 that results in mild narrowing of the central canal and mild to moderate narrowing of the right lateral recess. IMPRESSION: 1. No acute lumbar spine fracture or subluxation. 2. Possible central/right paracentral disc protrusion at L5-S1 that results in mild narrowing of the central canal and mild to moderate narrowing of the right lateral recess. This may contact the descending right S1 nerve root. This could be correlated with a right S1 radiculopathy. Electronically signed by: Paul Metz M.D. 05/21/2017 1:53 PM Dictated Date/Time: 05/21/2017 1:44 PM
== END | disposition home or self-care (01) ==
LOC: C.CTS 13:15
PROVIDERS: ATTEND Nurse Practitioner
DX: M54.16 Radiculopathy, lumbar region (principal)

== ENCOUNTER → 2017-07-08 | Outpatient (CLI) | payer OTHER ==
[2017-07-08 16:50] LABS: BLOOD UREA NITROGEN 21 mg/dl (7-18); CALCIUM 9.2 mg/dl (8.5-10.1); CARBON DIOXIDE 31 mmol/L (21-32); CHOLESTEROL 216 mg/dl (0-200); CREATININE 1.29 mg/dl (0.60-1.40); GLUCOSE 125 mg/dl (70-99); SODIUM 140 mmol/L (136-145)
[2017-07-08 16:53] LABS: LDL CHOLESTEROL CALCULATED 136 mg/dl
== END | disposition home or self-care (01) ==
LOC: C.LAB1850 15:48
PROVIDERS: ATTEND Physician Assistant
DX: I50.32 Chronic diastolic (congestive) heart failure (principal); E78.5 Hyperlipidemia, unspecified

== ENCOUNTER 2017-07-26 12:00 | Observation (INO) | payer OTHER ==
[~2017-07-26] VITALS: Ht 190.5 cm; Wt 155.0 kg
[~2017-07-26 12:00] MED LIST changes: -ASPI81TA28 PO; -POTA20TA16 PO; -SPIR25TA PO; -TAMS0.4C38 PO
[2017-07-26] MEDS ORDERED: MoRPHine SULFATE 10 MG/ML CARP/VIAL IV STA (12:38)
[2017-07-26 13:00] LABS: BASO % 0.7 %; BASO ABS # 0.04 K/uL (0-0.2); EOS % 3.1 %; EOS ABS # 0.18 K/uL (0-0.5); HEMATOCRIT 47.8 % (42-52); HEMOGLOBIN 16.9 g/dL (14.0-18.0); IG# 0.02 K/uL (0.00-0.02); LYMPH % 21.8 %; LYMPH ABS # 1.27 K/uL (1.2-3.4); MEAN CELL VOLUME 85.1 fL (80-100); MEAN CORPUSCULAR HEMOGLOBIN 30.1 pg (25-34); MEAN CORPUSCULAR HGB CONC 35.4 g/dl (32-36); MEAN PLATELET VOLUME 10.7 fL (7.4-10.4); MONO % 9.4 %; MONO ABS # 0.55 K/uL (0.11-0.59); NEUT % 64.7 %; NEUT ABS # 3.77 K/uL (1.4-6.5); PLATELET COUNT 197 K/uL (130-400); RED CELL DISTRIBUTION WIDTH CV 14.1 % (11.5-14.5); RED CELL DISTRIBUTION WIDTH SD 43.8 fL (36.4-46.3); WHITE BLOOD COUNT 5.83 K/uL (4.8-10.8)
[2017-07-26 13:17] LABS: ALBUMIN 4.1 gm/dl (3.4-5.0); CREATININE 1.06 mg/dl (0.60-1.40); POTASSIUM 4.3 mmol/L (3.5-5.1)
[2017-07-26] MEDS ORDERED: MoRPHine SULFATE 4 MG/ML 1 ML CARP\\VIAL IV STA (15:04)
--- NOTE | 2017-07-26 15:47 | EMERGENCY ROOM VISIT NOTE ---
History First contact with patient: 12:30 Chief Complaint: BACK PAIN Stated Complaint: BACK PAIN,NUMBNESS History of Present Illness The patient is a 46 year old male who presents to the Emergency Room via private vehicle with complaints of "back pain, numbness". The patient states that he has been experiencing low back pain/sciatic issues for many years. He states that he had a fall back in April of which resulted in a change of pacemaker and admission to the hospital. He states that his back has not been quite right since that fall. He notes pain in the low back that radiates down the right leg. Last night became severe. He has no vomiting because of the pain. It is radiating down his right leg. It is worse with movement. He denies any chest pain or shortness of breath. He rates the overall pain as a 6/ 10. He states that earlier today he did have an episode of urinary incontinence. He is unsure if this is because of the severe amount of pain or true urinary incontinence. He does note leg weakness. No numbness or tingling in the genital region. Review of Systems A complete 10-point Review of Systems was discussed with the patient, with pertinent positives and negatives listed in the History of Present Illness. All remaining Review of Systems questions can be considered negative unless otherwise specified. Past Medical/Surgical History Medical Problems: (1) Acute on chronic diastolic (congestive) heart failure (2) Annular Fissure with Disc Bulge (3) Back pain (4) Chest pain (5) Closed fracture of cervical spine (6) Dyslipidemia (7) Hypertrophic cardiomyopathy (8) Hypoxia (9) Implantation of internal cardiac defibrillator (10) Intractable back pain (11) Myocardial infarction (12) Pleuritis (13) s p insertion AICD (14) s/p appendectomy (15) Sleep apnea Family History Cancer 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 Heart disease Social History Smoking Status: Former Smoker Alcohol Use: occasionally Drug Use: none Marital Status: Housing Status: lives with family Occupation Status: employed Current/Historical Medications Scheduled Aspirin (Aspirin Ec), 81 MG PO DAILY Fluticasone Furoate-Vilanterol (Breo Ellipta 200-25 Mcg/INH), 1 PUFF INH DAILY Furosemide (Furosemide), 100 MG PO DAILY Metoprolol Tartrate (Lopressor) (Lopressor), 12.5 MG PO BID Potassium Ext Rel (Klor-Con), 20 MEQ PO DAILY Spironolactone (Aldactone), 25 MG PO DAILY Tamsulosin Hcl (Flomax), 0.4 MG PO DAILY Scheduled PRN Oxycodone HCl (Oxycodone HCl), 5 MG PO Q6H PRN for Pain Physical Exam Vital Signs Date Time Temp Pulse Resp B/P (MAP) Pulse Ox O2 Delivery O2 Flow Rate FiO2 07/26/17 18:17 74 20 150/86 87 Room Air 07/26/17 18:15 95 Nasal Cannula 3.0 07/26/17 17:36 75 18 130/79 94 Room Air 07/26/17 15:29 98 Room Air 07/26/17 15:29 80 18 124/79 97 Room Air 07/26/17 14:13 80 20 145/90 96 Room Air 07/26/17 12:06 36.4 84 18 136/91 97 Room Air Physical Exam VITAL SIGNS - Vital signs and nursing notes were reviewed. Stable. GENERAL -46-year-old male appearing his stated age who is in no acute distress. Communicates well with provider and answers questions appropriately. SKIN - Without rashes. No meningeal or petechial rash. HEAD - NC/AT. EYES - Sclera anicteric. EARS - No deformities of external structures noted on gross examination bilaterally. NOSE - Midline and without cyanosis. No epistaxis or purulent drainage noted. MOUTH/OROPHARYNX - Without perioral cyanosis NECK - Neck with FROM. LUNGS - Chest wall symmetric without accessory muscle use, intercostals retractions, or central cyanosis. Normal vesicular breath sounds CTA B/L. No wheezes, rales, or rhonchi appreciated. CARDIAC - RRR with S1/S2. No murmur, rubs, or gallops appreciated. ABDOMEN - Abdominal contour normal without pulsations or visible masses. BS normoactive all four quadrants. No tenderness, palpable masses, hepatosplenomegaly, or ascites noted. EXTREMITIES - No clubbing or peripheral cyanosis. No pretibial edema present. +5 /5 strength noted in UE/LE bilaterally. MUSCULOSKELETAL: There is tenderness to palpation overlying the patient's lumbar spinous processes inferiorly tracking to the right inferior paraspinous musculature to the right gluteal region. There is pain elicited and he is slow to move in the L-spine region. Difficulty with ambulation. NEUROLOGIC - Cranial nerves II through XII grossly intact. Sensory intact to light touch throughout. PSYCH - A&O, and cooperates fully with examiner. Pt is very pleasant and interacts well with examiner. Medical Decision & Procedures ER Provider Diagnostic Interpretation: LUMBAR SPINE COMBINATION CLINICAL HISTORY: 46 years-old Male presenting with Low back pain, urinary incontinence, pain after fall, severe pain today and yesterday, pain radiating down both legs, numbness. TECHNIQUE: Multisequence, multiplanar MR imaging of the lumbar spine was performed before and after the administration of intravenous contrast. IV contrast: 15 mL of Gadavist. COMPARISON: Noncontrast CT from 05/21/2017. FINDINGS: Localizer images: Unremarkable. Normal lumbar lordosis. T1 hyperintense, fat-containing lesion in the L1 vertebral body consistent with benign hemangioma. The remainder of the bone marrow signal intensity is normal. Vertebral bodies maintain normal height and alignment. Intervertebral disc desiccation with mild height loss evident at L5-S1. The remainder of the intervertebral discs are preserved. There is evidence of an annular fissure at the L5-S1 disc space (series 6 image 10). Disc bulge and mild facet arthropathy at this level result in minimal bilateral neural foraminal narrowing. The remaining levels demonstrate no neural foraminal or spinal canal stenosis. The spinal cord ends in good position at the endplate of L1. Cauda equina normal morphology. No paraspinal muscular edema. Postcontrast imaging demonstrates no abnormal enhancement. IMPRESSION: 1. Evidence of annular fissure with disc bulge and mild facet arthropathy at L5-S1. This results in only minimal bilateral neural foraminal narrowing. No spinal stenosis. Electronically signed by: Fareed Smart M.D. 07/26/2017 5:42 PM Dictated Date/Time: 07/26/2017 5:37 PM Laboratory Results 07/26/17 12:49 Red Blood Count 5.62, Mean Corpuscular Volume 85.1, Mean Corpuscular Hemoglobin 30.1, Mean Corpuscular Hemoglobin Concent 35.4, Mean Platelet Volume 10.7, Neutrophils (%) (Auto) 64.7, Lymphocytes (%) (Auto) 21.8, Monocytes (%) (Auto) 9.4, Eosinophils (%) (Auto) 3.1, Basophils (%) (Auto) 0.7, Neutrophils # (Auto) 3.77, Lymphocytes # (Auto) 1.27, Monocytes # (Auto) 0.55, Eosinophils # (Auto) 0.18, Basophils # (Auto) 0.04 07/26/17 12:49 Test 07/26/17 12:49 07/26/17 13:00 White Blood Count 5.83 K/uL (4.8-10.8) Red Blood Count 5.62 M/uL (4.7-6.1) Hemoglobin 16.9 g/dL (14.0-18.0) Hematocrit 47.8 % (42-52) Mean Corpuscular Volume 85.1 fL (80-100) Mean Corpuscular Hemoglobin 30.1 pg (25-34) Mean Corpuscular Hemoglobin Concent 35.4 g/dl (32-36) Platelet Count 197 K/uL (130-400) Mean Platelet Volume 10.7 fL (7.4-10.4) Neutrophils (%) (Auto) 64.7 % Lymphocytes (%) (Auto) 21.8 % Monocytes (%) (Auto) 9.4 % Eosinophils (%) (Auto) 3.1 % Basophils (%) (Auto) 0.7 % Neutrophils # (Auto) 3.77 K/uL (1.4-6.5) Lymphocytes # (Auto) 1.27 K/uL (1.2-3.4) Monocytes # (Auto) 0.55 K/uL (0.11-0.59) Eosinophils # (Auto) 0.18 K/uL (0-0.5) Basophils # (Auto) 0.04 K/uL (0-0.2) RDW Standard Deviation 43.8 fL (36.4-46.3) RDW Coefficient of Variation 14.1 % (11.5-14.5) Immature Granulocyte % (Auto) 0.3 % Immature Granulocyte # (Auto) 0.02 K/uL (0.00-0.02) Anion Gap 4.0 mmol/L (3-11) Est Creatinine Clear Calc Drug Dose 140.3 ml/min Estimated GFR () 97.8 Estimated GFR (Non- 84.3 BUN/Creatinine Ratio 18.7 (10-20) Calcium Level 9.0 mg/dl (8.5-10.1) Total Bilirubin 0.8 mg/dl (0.2-1) Aspartate Amino Transf (AST/SGOT) 32 U/L (15-37) Alanine Aminotransferase (ALT/SGPT) 49 U/L (12-78) Alkaline Phosphatase 78 U/L (45-117) Total Protein 8.0 gm/dl (6.4-8.2) Albumin 4.1 gm/dl (3.4-5.0) Globulin 3.9 gm/dl (2.5-4.0) Albumin/Globulin Ratio 1.1 (0.9-2) Urine Color DK YELLOW Urine Appearance CLEAR (CLEAR) Urine pH 5.0 (4.5-7.5) Urine Specific [place] 1.039 (1.000-1.030) Urine Protein 1+ (NEG) Urine Glucose (UA) NEG (NEG) Urine Ketones TRACE (NEG) Urine Occult Blood 1+ (NEG) Urine Nitrite NEG (NEG) Urine Bilirubin NEG (NEG) Urine Urobilinogen NEG (NEG) Urine Leukocyte Esterase NEG (NEG) Urine WBC (Auto) 1-5 /hpf (0-5) Urine RBC (Auto) 0-4 /hpf (0-4) Urine Hyaline Casts (Auto) 1-5 /lpf (0-5) Urine Epithelial Cells (Auto) 5-10 /lpf (0-5) Urine Bacteria (Auto) NEG (NEG) Medications Administered Medications (Trade) Dose Ordered Sig/Ida Route Start Time Stop Time Status Last Admin Dose Admin Morphine Sulfate (MoRPHine SULFATE INJ) 10 mg NOW STAT IV 07/26/17 12:38 07/26/17 12:39 DC 07/26/17 12:56 10 MG Morphine Sulfate (MoRPHine SULFATE INJ) 4 mg NOW STAT IV 07/26/17 15:04 07/26/17 15:05 DC 07/26/17 15:28 4 MG Hydromorphone HCl (Dilaudid Inj) 0.5 mg NOW STAT IV 07/26/17 17:43 07/26/17 17:44 DC 07/26/17 17:51 0.5 MG Ondansetron HCl (Zofran Inj) 4 mg NOW STAT IV 07/26/17 17:43 07/26/17 17:44 DC 07/26/17 17:51 4 MG Ondansetron HCl (Zofran Inj) 4 mg Q6H PRN IV 07/26/17 18:15 08/25/17 18:14 07/28/17 09:22 4 MG Medical Decision Patient was seen and evaluated as above in room D4. He presents to us today with low back pain. He had hydrocodone earlier today. He has been taking ibuprofen and Tylenol without relief. Review was performed of nursing notes and vital signs. After obtaining a thorough history and physical examination the above work up was performed. He was given morphine for pain. He was reevaluated and feeling slightly better. Because of the persistence of back pain, it is severe with decrease in ability to ambulate, and now the questionable urinary incontinence I do believe that an MRI is warranted at this time of the L spine. He does have a pacemaker/defibrillator. Coordination in regard to ensuring that this was okay was performed. CBC reveals no leukocytosis or anemia. Metabolic panel does reveal dehydration with BUN at 20. No evidence of kidney or liver failure. Patient metabolic process does reveal 1+ occult blood, and epithelial cells. His presentation is not consistent with that of renal calculi or stone. It is reproducible in the spinous processes region and radiates down his right leg. I do believe that the MRI will help delineate. At this time I do believe that inpatient management is warranted secondary to rounds of pain medication being administered with minimal relief. He also lives alone. He has difficulty with ambulation. I spoke with admission team regarding MRI/admission for pain control and they recommended changing to order to with contrast given the difficulty of obtaining the study as well as to exclude any underlying pathology not identified on regular unenhanced MRI. It revealed an annular fissure with disc bulge and mild facet arthropathy at L5-S1 causing minimal bilateral neural foraminal narrowing. He will be admitted for pain control and further evaluation and management. Please refer to further documentation regarding his stay. In the evaluation and treatment of this patient the following differential diagnoses were entertained: Lumbar strain, fracture, dislocation, osteomyelitis , cauda equina syndrome, abscess, calculi, among others. Impression Primary Impression: Annular Fissure with Disc Bulge Departure Information Referrals Alfred Davis M.D. (PCP) Patient Instructions My [facility]
[2017-07-26] MEDS ORDERED: ONDANSETRON INJ 2 MG/ML 2 ML VIAL IV STA (17:43)
[2017-07-26] MEDS ORDERED: HYDROmorphone INJ 0.5 MG/0.5 ML SYR IV STA (17:43)
--- NOTE | 2017-07-26 17:44 | DIAGNOSTIC IMAGING REPORT ---
LUMBAR SPINE COMBINATION CLINICAL HISTORY: 46 years-old Male presenting with Low back pain, urinary incontinence, pain after fall, severe pain today and yesterday, pain radiating down both legs, numbness. TECHNIQUE: Multisequence, multiplanar MR imaging of the lumbar spine was performed before and after the administration of intravenous contrast. IV contrast: 15 mL of Gadavist. COMPARISON: Noncontrast CT from 05/21/2017. FINDINGS: Localizer images: Unremarkable. Normal lumbar lordosis. T1 hyperintense, fat-containing lesion in the L1 vertebral body consistent with benign hemangioma. The remainder of the bone marrow signal intensity is normal. Vertebral bodies maintain normal height and alignment. Intervertebral disc desiccation with mild height loss evident at L5-S1. The remainder of the intervertebral discs are preserved. There is evidence of an annular fissure at the L5-S1 disc space (series 6 image 10). Disc bulge and mild facet arthropathy at this level result in minimal bilateral neural foraminal narrowing. The remaining levels demonstrate no neural foraminal or spinal canal stenosis. The spinal cord ends in good position at the endplate of L1. Cauda equina normal morphology. No paraspinal muscular edema. Postcontrast imaging demonstrates no abnormal enhancement. IMPRESSION: 1. Evidence of annular fissure with disc bulge and mild facet arthropathy at L5-S1. This results in only minimal bilateral neural foraminal narrowing. No spinal stenosis. Electronically signed by: Fareed Smart M.D. 07/26/2017 5:42 PM Dictated Date/Time: 07/26/2017 5:37 PM
[2017-07-26] MEDS ORDERED: ALUMINUM/MAGNESIUM/SIMETH (MAALOX MAX) 30 ML UDC PO PRN (18:15)
[2017-07-26] MEDS ORDERED: ACETAMINOPHEN 325 MG TAB PO PRN (18:15)
[2017-07-26] MEDS ORDERED: MAGNESIUM HYDROXIDE SUSP 30 ML UDC PO PRN (18:15)
--- NOTE | 2017-07-26 18:37 | History and Physical ---
History & Physical Date & Time of Service: Jul 26, 2017 at 18:29 Chief Complaint: Back Pain,Numbness Primary Care Physician: Alfred Davis M.D. History of Present Illness Source: patient Mr. Connolly is a 46 y/o male with PMHx of Hypertrophic Cardiomyopathy S/P Myectomy , Diastolic CHF, Complete HB S/P ICD, HTN, HLD, Mitral Valve Repair, and MEENU who presents to the ED c/o worsening lumbar back pain with radiculopathy. Patient reports a mechanical fall in April 2017. He states he has intermittent pain since then however has been able to continue his normal way of life. Review of CT from that time shows some bulging disks. Due to the waxing and waning back pain he did see a neurosurgeon approximately 1 week ago. He reports they were recommending pain management and PT services. Patient states he has not been able to set this up as the different places he has called does not take his insurance. However, patient states that the pain is now unbearable and affecting his ability to ambulate. He states the pain starts in the lumbar region and radiates down the anterior aspect of the right thigh and continues past the knee to about the mid level of the lateral aspect of the calf. He states he occasionally has sciatica but it mostly affects his left side not his right. He denies any recent trauma or falls. He states he was sleeping and suddenly awoke to this pain. He feels that he is generally weak with standing but mostly due to pain. He denies saddle paresthesias. He states he had an episode of urinary incontinence today however he relates this more to difficulty ambulating to the bathroom and not being able to hold his urine. He does report some numbness and tingling along the same path however stating it is mostly pain. Past Medical/Surgical History Medical Problems: (1) Acute bronchitis (2) Acute on chronic diastolic (congestive) heart failure (3) Annular Fissure with Disc Bulge (4) Back pain (5) Cardiomyopathy (6) Chest pain (7) CHF (congestive heart failure) (8) Closed fracture of cervical spine (9) Dyslipidemia (10) Dyspnea on exertion (11) Elevated blood pressure reading (12) Elevated troponin (13) Exertional dyspnea (14) Fluid overload (15) Headache (16) Heart failure (17) History of CHF (congestive heart failure) (18) History of heart disease (19) Hypertrophic cardiomyopathy (20) Hypertrophic cardiomyopathy (21) Hypoxia (22) Hypoxia (23) Implantation of internal cardiac defibrillator (24) Intractable back pain (25) Left medial knee pain (26) Left sided chest pain (27) Malaise and fatigue (28) Myocardial infarction (29) Persistent cough (30) Pleuritis (31) Right-sided chest pain (32) Right-sided chest pain (33) s p insertion AICD (34) s/p appendectomy (35) Shortness of breath (36) Sleep apnea (37) SOB (shortness of breath) (38) Syncope Family History Cancer 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 Heart disease Social History Smoking Status: Former Smoker Drug Use: none Marital Status: Housing status: lives with family Occupational Status: employed Immunizations History of Influenza Vaccine: Yes History of Tetanus Vaccine?: Yes History of Pneumococcal: Yes History of Hepatitis B Vaccine: No Allergies Coded Allergies: Erythromycin (Unverified Allergy, Mild, UNSURE, 07/26/17) Home Medications Scheduled Aspirin (Aspirin Ec), 81 MG PO DAILY Fluticasone Furoate-Vilanterol (Breo Ellipta 200-25 Mcg/INH), 1 PUFF INH DAILY Furosemide (Furosemide), 100 MG PO DAILY Metoprolol Tartrate (Lopressor) (Lopressor), 12.5 MG PO BID Potassium Ext Rel (Klor-Con), 20 MEQ PO DAILY Spironolactone (Aldactone), 25 MG PO DAILY Tamsulosin Hcl (Flomax), 0.4 MG PO DAILY Scheduled PRN Oxycodone HCl (Oxycodone HCl), 5 MG PO Q6H PRN for Pain Review of Systems Constitutional: No fever, No chills ENT: No nasal symptoms, No sore throat Respiratory: No cough, No shortness of breath Cardiovascular: No chest pain, No palpitations Abdomen: + nausea, No pain, No vomiting, No diarrhea, No constipation, No GI bleeding Musculoskeletal: No swelling, No calf pain Genitourinary - Male: + urinary incontinence, No dysuria Neurologic: + numbness/tingling, + problem reported (pain from lumbar region down R anterior thigh into lateral aspect of calf) Hematologic / Lymphatic: No abnormal bleeding/bruising Integumentary: No rash Physical Exam Vital Signs Date Time Temp Pulse Resp B/P (MAP) Pulse Ox O2 Delivery O2 Flow Rate FiO2 07/26/17 18:17 74 20 150/86 87 Room Air 07/26/17 18:15 95 Nasal Cannula 3.0 07/26/17 17:36 75 18 130/79 94 Room Air 07/26/17 15:29 98 Room Air 07/26/17 15:29 80 18 124/79 97 Room Air 07/26/17 14:13 80 20 145/90 96 Room Air 07/26/17 12:06 36.4 84 18 136/91 97 Room Air General Appearance: WD/WN, no apparent distress Head: normocephalic, atraumatic Eyes: sclerae normal ENT: hearing grossly normal Neck: supple, no JVD, trachea midline Respiratory/Chest: lungs clear, normal breath sounds, no respiratory distress, no accessory muscle use, + pertinent finding (large mid-sternal surgical incision well-healed; L upper chest surgical scar well healed) Cardiovascular: regular rate, rhythm, no gallop, no murmur Abdomen/GI: normal bowel sounds, non tender, soft Extremities/Musculoskelatal: no calf tenderness, no pedal edema Neurologic/Psych: alert, oriented x 3, + pertinent finding (+ straight leg raise of RLE and referred pain to R with L straight leg raise; motor function intact; unable to obtain reflexes due to pain with positioning) Skin: normal color, warm/dry Diagnostics Laboratory Results Results Past 24 Hours Test 07/26/17 12:49 07/26/17 13:00 Range/Units White Blood Count 5.83 4.8-10.8 K/uL Red Blood Count 5.62 4.7-6.1 M/uL Hemoglobin 16.9 14.0-18.0 g/dL Hematocrit 47.8 42-52 % Mean Corpuscular Volume 85.1 80-100 fL Mean Corpuscular Hemoglobin 30.1 25-34 pg Mean Corpuscular Hemoglobin Concent 35.4 32-36 g/dl Platelet Count 197 130-400 K/uL Mean Platelet Volume 10.7 7.4-10.4 fL Neutrophils (%) (Auto) 64.7 % Lymphocytes (%) (Auto) 21.8 % Monocytes (%) (Auto) 9.4 % Eosinophils (%) (Auto) 3.1 % Basophils (%) (Auto) 0.7 % Neutrophils # (Auto) 3.77 1.4-6.5 K/uL Lymphocytes # (Auto) 1.27 1.2-3.4 K/uL Monocytes # (Auto) 0.55 0.11-0.59 K/uL Eosinophils # (Auto) 0.18 0-0.5 K/uL Basophils # (Auto) 0.04 0-0.2 K/uL RDW Standard Deviation 43.8 36.4-46.3 fL RDW Coefficient of Variation 14.1 11.5-14.5 % Immature Granulocyte % (Auto) 0.3 % Immature Granulocyte # (Auto) 0.02 0.00-0.02 K/uL Sodium Level 137 136-145 mmol/L Potassium Level 4.3 3.5-5.1 mmol/L Chloride Level 107 98-107 mmol/L Carbon Dioxide Level 26 21-32 mmol/L Anion Gap 4.0 3-11 mmol/L Blood Urea Nitrogen 20 7-18 mg/dl Creatinine 1.06 0.60-1.40 mg/dl Est Creatinine Clear Calc Drug Dose 140.3 ml/min Estimated GFR () 97.8 Estimated GFR (Non- 84.3 BUN/Creatinine Ratio 18.7 10-20 Random Glucose 122 70-99 mg/dl Calcium Level 9.0 8.5-10.1 mg/dl Total Bilirubin 0.8 0.2-1 mg/dl Aspartate Amino Transf (AST/SGOT) 32 15-37 U/L Alanine Aminotransferase (ALT/SGPT) 49 12-78 U/L Alkaline Phosphatase 78 45-117 U/L Total Protein 8.0 6.4-8.2 gm/dl Albumin 4.1 3.4-5.0 gm/dl Globulin 3.9 2.5-4.0 gm/dl Albumin/Globulin Ratio 1.1 0.9-2 Urine Color DK YELLOW Urine Appearance CLEAR CLEAR Urine pH 5.0 4.5-7.5 Urine Specific [place] 1.039 1.000-1.030 Urine Protein 1+ NEG Urine Glucose (UA) NEG NEG Urine Ketones TRACE NEG Urine Occult Blood 1+ NEG Urine Nitrite NEG NEG Urine Bilirubin NEG NEG Urine Urobilinogen NEG NEG Urine Leukocyte Esterase NEG NEG Urine WBC (Auto) 1-5 0-5 /hpf Urine RBC (Auto) 0-4 0-4 /hpf Urine Hyaline Casts (Auto) 1-5 0-5 /lpf Urine Epithelial Cells (Auto) 5-10 0-5 /lpf Urine Bacteria (Auto) NEG NEG Diagnostic Radiology LUMBAR SPINE COMBINATION CLINICAL HISTORY: 46 years-old Male presenting with Low back pain, urinary incontinence, pain after fall, severe pain today and yesterday, pain radiating down both legs, numbness. TECHNIQUE: Multisequence, multiplanar MR imaging of the lumbar spine was performed before and after the administration of intravenous contrast. IV contrast: 15 mL of Gadavist. COMPARISON: Noncontrast CT from 05/21/2017. FINDINGS: Localizer images: Unremarkable. Normal lumbar lordosis. T1 hyperintense, fat-containing lesion in the L1 vertebral body consistent with benign hemangioma. The remainder of the bone marrow signal intensity is normal. Vertebral bodies maintain normal height and alignment. Intervertebral disc desiccation with mild height loss evident at L5-S1. The remainder of the intervertebral discs are preserved. There is evidence of an annular fissure at the L5-S1 disc space (series 6 image 10). Disc bulge and mild facet arthropathy at this level result in minimal bilateral neural foraminal narrowing. The remaining levels demonstrate no neural foraminal or spinal canal stenosis. The spinal cord ends in good position at the endplate of L1. Cauda equina normal morphology. No paraspinal muscular edema. Postcontrast imaging demonstrates no abnormal enhancement. IMPRESSION: 1. Evidence of annular fissure with disc bulge and mild facet arthropathy at L5-S1. This results in only minimal bilateral neural foraminal narrowing. No spinal stenosis. Impression Assessment and Plan Mr. Connolly is a 46 y/o male with PMHx of Hypertrophic Cardiomyopathy S/P Myectomy , Diastolic CHF, Complete HB S/P ICD, HTN, HLD, Mitral Valve Repair, and MEENU who presents to the ED c/o worsening lumbar back pain with radiculopathy. Annular Fissue with Disc Bulge/Intractable Back Pain: -Patient is established with [facility]surgery in [place] [facility] - will request records --Per patient, he was instructed that a conservative measure would be taken initially with pain management and PT services however he has had difficulty finding outpatient physical therapy that takes his insurance -Dexamethasone 4 mg IV Q12H -Voltaren gel, Toradol and Dilaudid PRN Hypertrophic Cardiomyopathy S/P Myectomy/Chronic Diastolic CHF/Complete HB S/P ICD/HTN: - ASA 81 mg daily -Lasix 100 mg daily and Spironolactone 25 mg daily -Lopressor 12.5 mg BID MEENU: Will set up BiPAP for night use BPH: -Flomax 0.4 mg daily DVT Prophylaxis: SCDs Code Status: FULL RESUSCITATION Disposition: -We will evaluate pain medication needs overnight to help depict a oral regimen -PT evaluation -may benefit from some exercises to help improve back pain -Could consider consultation for pain management or orthopedic spine I personally interviewed and examined the patient. I agree with history of present illness and physical exam mentioned above, I also performed my own history taking and examination. Past medical history and review of system has been obtained by myself I reviewed all pertinent labs and studies Reviewed current medications I discussed and formulated of the assessment and plan mentioned above. Please refer to the Summary mentioned below. 46-year-old man with past medical history of hypertrophic obstructive cardiomyopathy status post myomectomy, complete heart block status post pacemaker, cardiomyopathy status post AICD, hypertension dyslipidemia and mitral valve repair. Patient had severe obstructive sleep apnea currently compliant with his BiPAP at home presented to the hospital with severe lower back pain, no lower extremity weakness but he cannot move from the pain he had one episode of urinary incontinence secondary to the severe pain and inability to go to the bathroom. MRI showed an Annular fissure with disc bulge, patient is being admitted for intractable lower back pain. Started on Ultram, Voltaren gel, Lidoderm patch. If his pain is not well controlled, pain management consult can be considered General Appearance: not in acute distress Eyes: normal Sclerae, extraocular muscle intact ENT: hearing grossly normal Neck: supple Respiratory/Chest: normal air entry bilateral ,no respiratory distress, no accessory muscle use Cardiovascular: regular rate, rhythm, no murmur Abdomen: non tender, soft, no masses Extremities: no edema musculoskeletal: no significant swelling or inflammation in any joint Neurologic/Psychiatric: Awake alert oriented times place and person moves all extremities sensation intact cranial nerves II-12 appear to be intact Skin: normal color, warm/dry, no rash Arturo Pittman MD, [facility] Resuscitation Status VTE Prophylaxis Will order VTE Prophylaxis: Yes
[2017-07-26] MEDS ORDERED: POLYETHYLENE (MIRALAX) 17 GM PACK PO PRN (18:45)
[2017-07-26] MEDS ORDERED: IV FLUIDS COMPLETED PRN (19:30)
[2017-07-26 19:33] VITALS: BP 162/92; PULSE 84; TEMP 36.4; O2SAT 94
[2017-07-26] MEDS ORDERED: DEXAMETHASONE INJ 4 MG in SYRINGE 0 ML IV SCH (19:45)
[2017-07-26 19:48] VITALS: BP 162/92; PULSE 81; TEMP 36.4; O2SAT 95; Ht 190.5 cm; Wt 155.0 kg
[2017-07-26 21:51] VITALS: PULSE 80; O2SAT 98
[2017-07-26 22:32] VITALS: BP 134/82; PULSE 80
[2017-07-26] MEDS: METOPROLOL TARTRATE 25 MG TAB PO SCH (22:34)
[2017-07-26 23:15] VITALS: BP 141/81; PULSE 74; TEMP 36.8; O2SAT 93
[2017-07-27] MEDS: KETOROLAC TROMETHAMINE 30 MG/ML VIAL IV PRN (00:01)
[2017-07-27] MEDS: DICLOFENAC SOD 1% GEL 100 GM TUBE EXT SCH ×4 (00:10→20:10)
[2017-07-27 07:26] VITALS: BP 113/64; PULSE 68; TEMP 36.5; O2SAT 92
[2017-07-27] MEDS: HYDROmorphone INJ 0.5 MG/0.5 ML SYR IV PRN ×3 (07:39→20:23)
[2017-07-27] MEDS: ONDANSETRON INJ 2 MG/ML 2 ML VIAL IV PRN ×2 (07:45→14:10)
[2017-07-27] MEDS: SPIRONOLACTONE 25 MG TAB PO SCH (09:00)
[2017-07-27] MEDS: FUROSEMIDE 40 MG TAB PO SCH (09:00)
--- NOTE | 2017-07-27 09:05 | Family Medicine Progress Note ---
Progress Note Date of Service Jul 27, 2017. Subjective Pt evaluation today including: conversation w/ patient Voiding: no voiding problems Does report that pain is better but has worsening pain with movement sometimes. No further episodes of urinary incontinence. No LE weakness, Has some right thigh numbness/tingling Wants to see [facility] spine Constitutional: No fever, No chills Eyes: No worsening of vision ENT: No hearing loss Respiratory: No cough, No sputum, No wheezing, No shortness of breath, No dyspnea on exertion Cardiovascular: No chest pain, No edema Abdomen: No pain, No nausea, No vomiting, No diarrhea Musculoskeletal: + muscle pain Male : No dysuria, No urinary frequency Neurologic: + problem reported (low back pain) Objective Physical Exam General Appearance: no apparent distress Eyes: PERRL, EOMI ENT: hearing grossly normal Neck: no adenopathy Respiratory/Chest: lungs clear, normal breath sounds, no respiratory distress, no accessory muscle use Cardiovascular: regular rate, rhythm, no edema, no murmur Abdomen: normal bowel sounds, non tender, soft Extremities: normal range of motion, non-tender, + pertinent finding (low back tenderness, tenderness over piriformis muscles bilaterally, L>R) Neurologic/Psychiatric: no motor/sensory deficits, alert, normal mood/affect, oriented x 3 Assessment and Plan Mr. Connolly is a 46 y/o male with PMHx of Hypertrophic Cardiomyopathy S/P Myectomy , Diastolic CHF, Complete HB S/P ICD, HTN, HLD, Mitral Valve Repair, and MEENU who presents to the ED c/o worsening lumbar back pain with radiculopathy. Intractable Back Pain: Annular Fissure with Disc Bulge at l5-s1 on MRI vs. MSK etiology -[facility] --Per patient, he was instructed that a conservative measure would be taken initially with pain management and PT services however he has had difficulty finding outpatient physical therapy that takes his insurance. Patient requests to be seen by [facility] if needed - Possible MSK etiology- Piriformis muscle involvement- PT concurs and will work with him. Appreciate Dr. Ritter's input and manipulation techniques. - continue Dexamethasone 4 mg IV Q12H -Voltaren gel, Toradol and Dilaudid PRN Hypertrophic Cardiomyopathy S/P Myectomy/Chronic Diastolic CHF/Complete HB S/P ICD/HTN: - ASA 81 mg daily - Lasix 100 mg daily and Spironolactone 25 mg daily - Lopressor 12.5 mg BID MEENU: bipap BPH: -Flomax 0.4 mg daily DVT Prophylaxis: SCDs Code Status: FULL RESUSCITATION Disposition: - Home -PT Resident Physician Supervision Note: I interviewed and examined the patient. Discussed with Dr. Story and agree with findings and plan as documented in the note. Any exceptions or clarifications are listed here: None Documented By: Clakre Stone back pain - L worse than R but b/l. radiating down front of L side of R. vitals noted appearing uncomfortable with movement msk/ost - L sided piriformis region of buttocks muscles high tone/tender/ decreased ROM and L anterior innominate corroborating dysfunction - muscle energy (post isometric relaxation) and LAS to piriformis - pt tolerated - had to stop some due to pain w M.E. but overall tolerated well, and some positive changes in ROM and tissue texture back pain - does not fit L5/S1 radicular pattern, while disc may be involved strongly suspect this is entirely or at least majority biomechanical. continue above meds and supportive care. PT sought me out to discuss their findings ( before i had documented anything and had not discussed case with them first) - and they found essentially an identical dx somatic dysfunction sacrum/pelvis - OMT as above.
[2017-07-27] MEDS: DEXAMETHASONE INJ 4 MG in SYRINGE 0 ML IV SCH ×2 (09:30→20:10)
[2017-07-27] MEDS: METOPROLOL TARTRATE 25 MG TAB PO SCH ×2 (09:30→20:12)
[2017-07-27] MEDS: TAMSULOSIN HCL 0.4 MG CAP PO SCH (09:30)
[2017-07-27] MEDS: ASPIRIN 81 MG ECTAB PO SCH (09:31)
[2017-07-27] MEDS: POTASSIUM CHLORIDE 20 MEQ TABCR PO SCH (09:31)
[2017-07-27] MEDS: CYCLOBENZAPRINE HCL 5 MG TAB PO SCH ×3 (09:31→20:11)
[2017-07-27] MEDS: LIDODERM (LIDOCAINE) PATCH 5% TD SCH (09:32)
[2017-07-27 15:35] VITALS: BP 133/77; PULSE 79; TEMP 37; O2SAT 90
[2017-07-27 16:31] VITALS: O2SAT 90
[2017-07-27 20:00] VITALS: O2SAT 90
[2017-07-27 23:24] VITALS: BP 134/77; PULSE 71; TEMP 36.7; O2SAT 92
[2017-07-28] MEDS: HYDROmorphone INJ 0.5 MG/0.5 ML SYR IV PRN ×4 (01:55→22:36)
[2017-07-28] MEDS: KETOROLAC TROMETHAMINE 30 MG/ML VIAL IV PRN ×4 (01:55→22:35)
[2017-07-28 07:36] VITALS: BP 99/53; PULSE 60; O2SAT 93
[2017-07-28] MEDS: SPIRONOLACTONE 25 MG TAB PO SCH (09:00)
[2017-07-28] MEDS: FUROSEMIDE 40 MG TAB PO SCH (09:00)
[2017-07-28] MEDS: METOPROLOL TARTRATE 25 MG TAB PO SCH ×2 (09:00→20:07)
[2017-07-28] MEDS: DEXAMETHASONE INJ 4 MG in SYRINGE 0 ML IV SCH (09:13)
[2017-07-28] MEDS: DICLOFENAC SOD 1% GEL 100 GM TUBE EXT SCH ×4 (09:14→20:10)
[2017-07-28] MEDS: LIDODERM (LIDOCAINE) PATCH 5% TD SCH (09:14)
[2017-07-28] MEDS: CYCLOBENZAPRINE HCL 5 MG TAB PO SCH ×3 (09:14→20:07)
[2017-07-28] MEDS: ASPIRIN 81 MG ECTAB PO SCH (09:15)
[2017-07-28] MEDS: TAMSULOSIN HCL 0.4 MG CAP PO SCH (09:15)
[2017-07-28] MEDS: POTASSIUM CHLORIDE 20 MEQ TABCR PO SCH (09:16)
[2017-07-28] MEDS: ONDANSETRON INJ 2 MG/ML 2 ML VIAL IV PRN (09:22)
--- NOTE | 2017-07-28 16:16 | Family Medicine Progress Note ---
Progress Note Date of Service Jul 28, 2017. Subjective Pt evaluation today including: conversation w/ patient Pain: 6/10 Constitutional: No fever, No chills Eyes: No worsening of vision ENT: No hearing loss Respiratory: No cough, No sputum, No wheezing, No shortness of breath, No dyspnea on exertion Cardiovascular: No chest pain Abdomen: No pain, No nausea, No vomiting, No diarrhea, No constipation Musculoskeletal: + joint pain, + muscle pain Male : No dysuria, No urinary frequency, No incontinence, No nocturia more than once/night Neurologic: + weakness, No numbness/tingling, No balance problems Medications Medications (Trade) Dose Ordered Sig/Ida Route Start Time Stop Time Status Last Admin Dose Admin Miscellaneous (Remove Lidoderm Patch) 1 ea DAILY@21 N/A 07/27/17 21:00 08/26/17 20:59 07/27/17 20:11 1 EA Diclofenac Sodium (Voltaren 1% Top Gel) 1 appln QID EXT 07/27/17 21:00 08/26/17 20:59 07/28/17 13:36 1 APPLN Objective Vital Signs Date Time Temp Pulse Resp B/P (MAP) Pulse Ox O2 Delivery O2 Flow Rate FiO2 07/28/17 15:40 CPAP 07/28/17 07:50 CPAP 07/28/17 07:36 60 16 99/53 (68) 93 CPAP 07/28/17 00:00 Room Air 07/27/17 23:24 36.7 71 16 134/77 (96) 92 Room Air 07/27/17 20:00 90 Room Air 07/27/17 16:31 90 Room Air Physical Exam General Appearance: no apparent distress Eyes: PERRL, EOMI ENT: hearing grossly normal Neck: supple, no JVD Respiratory/Chest: lungs clear, normal breath sounds, no respiratory distress, no accessory muscle use Cardiovascular: regular rate, rhythm, no murmur Abdomen: normal bowel sounds, non tender, soft Extremities: no calf tenderness, + pertinent finding (ROM slightly limited L>R due to pain) Neurologic/Psychiatric: alert, normal mood/affect, + motor weakness Assessment and Plan Mr. Connolly is a 46 y/o male with PMHx of Hypertrophic Cardiomyopathy S/P Myectomy , Diastolic CHF, Complete HB S/P ICD, HTN, HLD, Mitral Valve Repair, and MEENU who presents to the ED c/o worsening lumbar back pain with radiculopathy. Intractable Back Pain: Annular Fissure with Disc Bulge at l5-s1 on MRI vs. MSK etiology -Patient is established with neurosurgery in [place] [facility] - will request records --Per patient, he was instructed that a conservative measure would be taken initially with pain management and PT services however he has had difficulty finding outpatient physical therapy that takes his insurance. Patient requests to be seen by [facility] if needed - Possible MSK etiology- Piriformis muscle involvement- PT concurs and will work with him. Appreciate Dr. Ritter's input and manipulation techniques. - D/C steroids. - likely not helping but if there is worsening of pain, this may point more towards bulging disc vs. msk -Voltaren gel, Toradol and Dilaudid PRN Hypertrophic Cardiomyopathy S/P Myectomy/Chronic Diastolic CHF/Complete HB S/P ICD/HTN: - ASA 81 mg daily - Lasix 100 mg daily and Spironolactone 25 mg daily - Lopressor 12.5 mg BID MEENU: bipap BPH: -Flomax 0.4 mg daily DVT Prophylaxis: SCDs Code Status: FULL RESUSCITATION Disposition: - Home -PT Resident Physician Supervision Note: I interviewed and examined the patient. Discussed with Dr. Story and agree with findings and plan as documented in the note. Any exceptions or clarifications are listed here: None Documented By: Clarke Ritter back pain - ongoing vitals noted appearing uncomfortable with movement msk/ost - L sided piriformis region of buttocks muscles high tone/tender/ decreased ROM - muscle energy (post isometric relaxation) and LAS to piriformis - pt tolerated better than yesterday, clear positive ipmrovements in ROM and tissue texture back pain - does not fit L5/S1 radicular pattern, while disc may be involved strongly suspect this is entirely or at least majority biomechanical. PT eval separately corroborates exactly the strain pattern i was seeing made this unequivocally clear to pt as i harbor concerns that he would be able to find a surgeon who would operate despite his picture not fitting with disc. appearing to be started by fall - biomechanical pattern centers on spastic L piriformis, then subsequent sacral torsion --> pelvic torsion, and then secondary strain of surrounding musculature. would anticipate plan of OMT, meds, mobility --> once doing well enough with OMT then would start therapy for strengthening somatic dysfunction sacrum/pelvis - OMT as above. continue as best as possible while inpt - then would refer to kathleen segura DO [facility] [place] Family med to continue OMT after discharge
[2017-07-28 16:19] VITALS: BP 138/79; PULSE 71; TEMP 36.6; O2SAT 92
[2017-07-28 22:40] VITALS: BP 132/79; PULSE 64; TEMP 36.5; O2SAT 96
[2017-07-29] MEDS: HYDROmorphone INJ 0.5 MG/0.5 ML SYR IV PRN (06:38)
[2017-07-29] MEDS: KETOROLAC TROMETHAMINE 30 MG/ML VIAL IV PRN ×2 (06:39→13:02)
[2017-07-29 07:22] VITALS: BP 149/65; PULSE 64; TEMP 36.3; O2SAT 96
[2017-07-29 07:40] VITALS: BP 136/81; PULSE 65; TEMP 36.6; O2SAT 96
[2017-07-29] MEDS: DICLOFENAC SOD 1% GEL 100 GM TUBE EXT SCH ×3 (08:01→17:00)
[2017-07-29] MEDS: LIDODERM (LIDOCAINE) PATCH 5% TD SCH (08:01)
[2017-07-29] MEDS: FUROSEMIDE 40 MG TAB PO SCH (08:02)
[2017-07-29] MEDS: ASPIRIN 81 MG ECTAB PO SCH (08:03)
[2017-07-29] MEDS: CYCLOBENZAPRINE HCL 5 MG TAB PO SCH ×2 (08:03→13:00)
[2017-07-29] MEDS: POTASSIUM CHLORIDE 20 MEQ TABCR PO SCH (08:04)
[2017-07-29] MEDS: SPIRONOLACTONE 25 MG TAB PO SCH (08:04)
[2017-07-29] MEDS: TAMSULOSIN HCL 0.4 MG CAP PO SCH (08:04)
[2017-07-29] MEDS: METOPROLOL TARTRATE 25 MG TAB PO SCH (08:05)
[2017-07-29 08:06] VITALS: O2SAT 96
--- NOTE | 2017-07-29 09:13 | Family Medicine Progress Note ---
Progress Note Date of Service Jul 29, 2017. Objective Vital Signs Date Time Temp Pulse Resp B/P (MAP) Pulse Ox O2 Delivery O2 Flow Rate FiO2 07/29/17 08:06 96 Room Air 07/29/17 07:40 36.6 65 16 136/81 (99) 96 Room Air 07/29/17 07:22 36.3 64 18 149/65 (93) 96 Room Air 07/28/17 23:15 Room Air 07/28/17 22:40 36.5 64 18 132/79 (96) 96 Room Air 07/28/17 16:19 36.6 71 16 138/79 (98) 92 Room Air 07/28/17 15:40 CPAP
[2017-07-29] MEDS ORDERED: OXYCODONE HCL IR 5 MG TAB (IMMEDIATE RELEASE) PO PRN (11:15)
[2017-07-29 15:12] VITALS: BP 128/71; PULSE 64; TEMP 36.7; O2SAT 96
[2017-07-29] MEDS ORDERED: LDDP5 TD (15:42)
[2017-07-29] MEDS ORDERED: RXC5 PO (15:42)
[2017-07-29] MEDS ORDERED: VLTG EXT (15:42)
--- NOTE | 2017-07-29 16:24 | Discharge Instructions ---
Discharge Instructions Date of Service Jul 29, 2017. Admission Reason for Admission: Annular Fissure With Disc Bulge Discharge Discharge Diagnosis / Problem: Back pain Discharge Goals Goal(s): Decrease discomfort, Improve function, Increase independence, Improve disease control, Learn about illness, Diagnostic testing, Therapeutic intervention, Screening, Prevent Disease Progression, Specific goals Activity Recommendations Activity Limitations: resume your previous activity . Instructions / Follow-Up Instructions / Follow-Up You were found to have a bulging disc in your lumbar spine in addition to suspected sciatic nerve compression contributing to your back pain. Please take medication as prescribed. This includes new prescriptions of Voltaren gel, Lidoderm patch in addition to Oxycodone as needed for pain. Please do not drive after having taken Oxycodone. You will have a follow up appointment scheduled with [facility]surgery ( [facility]). You should receive a call. If you do not receive a call. please call [phone] to schedule. You will also receive call from the office of Dr. Peter Allen from [facility] to schedule an appointment for Osteopathic manipulation therapy If you do not hear from his office, please call [phone] to set it up. You are set up with Home health home to receive Physical therapy at this time. If your pain is not controlled by medication, please contact either your primary care provider's office or [facility] neurosurgery office for advise or return to Emergency Dept. Current Hospital Diet Patient's current hospital diet: AHA Diet (Heart Healthy) Discharge Diet Recommended Diet: Regular Diet Pending Studies Studies pending at discharge: no Laboratory Results Lipid Panel Test 07/08/17 15:52 Range/Units Triglycerides Level 199 H 0-150 mg/dl Cholesterol Level 216 H 0-200 mg/dl HDL Cholesterol 40 mg/dl Cholesterol/HDL Ratio 5.4 LDL Cholesterol, Calculated 136 mg/dl Medical Emergencies . Who to Call and When: Medical Emergencies: If at any time you feel your situation is an emergency, please call 911 immediately. . Non-Emergent Contact Non-Emergency issues call your: Primary Care Provider, Surgeon Call Non-Emergent contact if: you have a fever, your pain is not controlled, your pain is worsening, your pain is unusual for you, your pain is concerning you, you have any medication questions . . "Provider Documentation" section prepared by Randell Simmons. .
--- NOTE | 2017-07-29 16:27 | Discharge Summary ---
Discharge Summary Date of Service Jul 29, 2017. Discharge Summary Admission Date: Jul 26, 2017 at 18:22 Discharge Date: Jul 29, 2017 Discharge Disposition: Home with services Principal Diagnosis: Annular fissure with Disc Bulge Immunizations: Have You Had Influenza Vaccine: Yes History of Tetanus Vaccine?: Yes History of Pneumococcal: Yes History of Hepatitis B Vaccine: No Medication Reconciliation New Medications: Diclofenac Sod (Voltaren) 100 Appln/100 Gm Gel 1 APPLN EXT QID for 30 Days, #1 Lidocaine (Lidocaine) 1 Patch Tdsy 1 PATCH TD QAM for 10 Days, #3 APPLN Oxycodone HCl (Oxycodone HCl) 5 Mg Tab 5 MG PO Q6H PRN for Pain, #30 TAB 0 Refills Continued Medications: Aspirin (Aspirin Ec) 81 Mg Tab 81 MG PO DAILY Fluticasone Furoate-Vilanterol (Breo Ellipta 200-25 Mcg/INH) 1 Inh Inh 1 PUFF INH DAILY Furosemide (Furosemide) 40 Mg Tab 100 MG PO DAILY for 30 Days, #75 TAB Metoprolol Tartrate (Lopressor) (Lopressor) 25 Mg Tab 12.5 MG PO BID Potassium Ext Rel (Klor-Con) 20 Meq Tabcr 20 MEQ PO DAILY, TAB Spironolactone (Aldactone) 25 Mg Tab 25 MG PO DAILY, TAB Tamsulosin Hcl (Flomax) 0.4 Mg Cap 0.4 MG PO DAILY, CAP Discontinued Medications: Oxycodone HCl (Oxycodone HCl) 5 Mg Tab 5 MG PO Q6H PRN for Pain for 3 Days, #12 TAB Discharge Exam Review of Systems: Constitutional: No fever, No chills, No weakness Respiratory: No cough, No shortness of breath Cardiovascular: No chest pain, No edema, No palpitations Abdomen: No pain, No nausea, No vomiting Musculoskeletal: + problem reported (lower back pain) Genitourinary - Male: No hematuria, No dysuria, No urinary frequency Integumentary: No rash, No itch Physical Exam: General Appearance: WD/WN, no apparent distress, + obese Eyes: PERRL, EOMI Neck: supple, no JVD, no carotid bruits Cardiovascular: regular rate, rhythm, no edema, no murmur Abdomen / GI: normal bowel sounds, non tender, soft Extremities: no calf tenderness, no pedal edema, non-tender, + pertinent finding (R, L buttocks tenderness in line with sciatic n; Vertebral tenderness in lumbar region. Stright leg raise negative bilatertally for radicular symptoms) Neurologic/Psychiatric: alert, normal mood/affect Skin: no rash Hospital Course H&P Mr. Connolly is a 46 y/o male with PMHx of Hypertrophic Cardiomyopathy S/P Myectomy , Diastolic CHF, Complete HB S/P ICD, HTN, HLD, Mitral Valve Repair, and MEENU who presents to the ED c/o worsening lumbar back pain with radiculopathy. Patient reports a mechanical fall in April 2017. He states he has intermittent pain since then however has been able to continue his normal way of life. Review of CT from that time shows some bulging disks. Due to the waxing and waning back pain he did see a neurosurgeon approximately 1 week ago. He reports they were recommending pain management and PT services. Patient states he has not been able to set this up as the different places he has called does not take his insurance. However, patient states that the pain is now unbearable and affecting his ability to ambulate. He states the pain starts in the lumbar region and radiates down the anterior aspect of the right thigh and continues past the knee to about the mid level of the lateral aspect of the calf. He states he occasionally has sciatica but it mostly affects his left side not his right. He denies any recent trauma or falls. He states he was sleeping and suddenly awoke to this pain. He feels that he is generally weak with standing but mostly due to pain. He denies saddle paresthesias. He states he had an episode of urinary incontinence today however he relates this more to difficulty ambulating to the bathroom and not being able to hold his urine. He does report some numbness and tingling along the same path however stating it is mostly pain. - Patient is established with neurosurgery in [place], Intractable Back Pain: - MRI: Annular Fissure with Disc Bulge at L5-S1 although MSK etiology was considered also with Piriformis muscle involvement - initially placed on Dexamethasone, 5 mg IV q12 - D/C'd steroids 07/28 after no improvement - PT consulted . Osteopathic manipulation attempted by Dr Ritter - Given Voltaren gel, Toradol and Dilaudid PRN - Pain better controlled by discharge,Sent home with Lidoderm , Voltaren , Oxycodone on home with home health and physical therapy, neurosurgery f/u at [facility] and Osteopathic manipulation referral to Dr. Allen ([facility] [place]) Hypertrophic Cardiomyopathy S/P Myectomy/Chronic Diastolic CHF/Complete HB S/P ICD/HTN: - ASA 81 mg daily - Lasix 100 mg daily and Spironolactone 25 mg daily - Lopressor 12.5 mg BID MEENU: bipap BPH: -Flomax 0.4 mg daily DVT Prophylaxis: SCDs Code Status: FULL RESUSCITATION Disposition: - Home -PT Total Time Spent: Less than 30 minutes This includes examination of the patient, discharge planning, medication reconciliation, and communication with other providers. Discharge Instructions Please refer to the electronic Patient Visit Report (Discharge Instructions) for additional information. Assessment/Plan Resident Physician Supervision Note: I was present with Dr. Simmons during the history and exam. I discussed the case with the resident and agree with the findings and plan as documented in the note. Any exceptions or clarifications are listed here. Discussed with patient re: course of pain and likelihood of mechanical compression which will require PT and benefit from OMT as opposed to high amount of narcotics, which he states he doesn't like to take at home 2/2 feeling 'loopy'. Tolerated decrease to oxy 5mg PRN well, so can discharge on lidocaine patch, voltaren, oxycodone for PT and OMT w/ Dr. Allen.
[2017-07-29 17:21] VITALS: BP 128/71; PULSE 64; TEMP 36.7; O2SAT 96
[2017-08-01] MEDS ORDERED: ASPI81TA28 PO (09:14)
[2017-08-01] MEDS ORDERED: SPIR25TA PO (15:01)
[2017-08-01] MEDS ORDERED: POTA20TA16 PO (17:07)
== END 2017-07-29 18:09 | disposition home health service (06) ==
LOC: C.EDB 12:02 → C.MSW 18:22 → ENRESERV 18:38
PROVIDERS: ADMIT Internal Medicine; ATTEND Family Medicine
DX: M51.87 Other intervertebral disc disorders, lumbosacral region (principal); M51.27 Other intervertebral disc displacement, lumbosacral region; I42.2 Other hypertrophic cardiomyopathy; I50.30 Unspecified diastolic (congestive) heart failure; I11.0 Hypertensive heart disease with heart failure; I25.2 Old myocardial infarction; Z95.2 Presence of prosthetic heart valve; G47.33 Obstructive sleep apnea (adult) (pediatric); Z88.1 Allergy status to other antibiotic agents; Z90.89 Acquired absence of other organs; Z79.82 Long term (current) use of aspirin; Z79.899 Other long term (current) drug therapy; Z98.890 Other specified postprocedural states; Z87.891 Personal history of nicotine dependence; Z80.9 Family history of malignant neoplasm, unspecified; Z83.3 Family history of diabetes mellitus; Z82.49 Family history of ischemic heart disease and other diseases of the circulatory system

== ENCOUNTER 2017-08-01 16:11 | Inpatient (IN) | payer OTHER ==
[~2017-08-01] VITALS: Ht 190.5 cm; Wt 153.0 kg
[~2017-08-01 16:11] MED LIST changes: +ASPI81TA28 PO; +LDDP5 TD; +SPIR25TA PO; +VLTG EXT
[2017-08-01] MEDS ORDERED: ONDANSETRON INJ 2 MG/ML 2 ML VIAL IV STA (16:21)
--- NOTE | 2017-08-01 16:39 | EMERGENCY ROOM VISIT NOTE ---
History Report prepared by Steffen: Danny Castro Under the Supervision of: Dr. Raleigh Rocha D.O. First contact with patient: 16:15 Stated Complaint: CHEST PAIN History of Present Illness The patient is a 46 year old male who presents to the Emergency Room with complaints of persistent palpitations with chest pain for one hour. He reports chest pain and describes it as though it feels like there is air trapped underneath his sternum. He notes back pain in between is shoulder blades. He notes sweating. He denies any shortness of breath. He denies any abdominal pain. He denies any leg pain or leg swelling. He called his forgesmith, Dr. Hogan, who informed the patient to come to the ED for further evaluation. He denies any history of smoking. He occasionally drinks alcohol. He has a history of septal myomectomy for hypertrophic cardiomyopathy. Source of History: patient Onset: one hour ago Position: chest Quality: other (feels like air is trapped underneath sternum) Timing: other (persistent) Associated Symptoms: + back pain, No SOB, No abdominal pain Note: He notes sweating. He denies any leg pain or leg swelling. Review of Systems See HPI for pertinent positives & negatives. A total of 10 systems reviewed and were otherwise negative. Past Medical & Surgical Medical Problems: (1) Acute on chronic diastolic (congestive) heart failure (2) Annular Fissure with Disc Bulge (3) Back pain (4) Chest pain (5) Closed fracture of cervical spine (6) Dyslipidemia (7) Hypertrophic cardiomyopathy (8) Hypoxia (9) Implantation of internal cardiac defibrillator (10) Intractable back pain (11) Myocardial infarction (12) Pleuritis (13) s p insertion AICD (14) s/p appendectomy (15) Sleep apnea Family History Cancer 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 Heart disease Social History Smoking Status: Former Smoker Alcohol Use: occasionally Drug Use: none Marital Status: Housing Status: lives with family Occupation Status: employed Current/Historical Medications Scheduled Aspirin (Aspirin Ec), 81 MG PO DAILY Atorvastatin (Lipitor), 10 MG PO DAILY Fluticasone Furoate-Vilanterol (Breo Ellipta), 1 PUFF INH DAILY Furosemide (Lasix), 100 MG PO DAILY Metoprolol Tartrate (Lopressor) (Lopressor), 25 MG PO BID Potassium Ext Rel (Klor-Con), 20 MEQ PO DAILY Spironolactone (Aldactone), 25 MG PO DAILY Tamsulosin Hcl (Flomax), 0.4 MG PO DAILY Allergies Coded Allergies: Erythromycin (Unverified Allergy, Mild, UNSURE, 07/26/17) Physical Exam Vital Signs Date Time Temp Pulse Resp B/P (MAP) Pulse Ox O2 Delivery O2 Flow Rate FiO2 08/01/17 18:11 90 15 147/104 92 Nasal Cannula 2.0 08/01/17 17:05 96 27 132/77 93 Nasal Cannula 2.0 08/01/17 16:24 92 Room Air 08/01/17 16:23 105 08/01/17 16:17 36.7 100 18 123/77 92 Room Air 08/01/17 16:17 92 Room Air 08/01/17 16:17 2 Room Air Physical Exam GENERAL: Patient is awake, alert, and in no acute distress. Patient is very anxious and uncomfortable. EYES: The conjunctivae are clear. The pupils are round and reactive. EARS, NOSE, MOUTH AND THROAT: The nose is without any evidence of any deformity. Mucous membranes are moist tongue is midline NECK: The neck is nontender and supple. RESPIRATORY: Normal respiratory effort is noted there is no evidence of wheezing rhonchi or rales CARDIOVASCULAR: Regular rate and rhythm noted there no murmurs rubs or gallops normal S1 normal S2 GASTROINTESTINAL: The abdomen is soft. Bowel sounds are present in all quadrants. Abdomen is nontender MUSCULOSKELETAL/EXTREMITIES: There is no evidence of gross deformity full range of motion is noted in the hips and shoulders SKIN: Traced pedal edema. Skin was cool and diaphoretic. NEUROLOGIC: Patient is awake alert and oriented x3. Medical Decision & Procedures ER Provider Diagnostic Interpretation: Radiology results as stated below per my review and radiologist interpretation: CHEST ONE VIEW PORTABLE CLINICAL HISTORY: 46 years-old Male presenting with EVALUATE RESPIRATORY DISTRESS.DYSPNEA. TECHNIQUE: Portable upright AP view of the chest was obtained. COMPARISON: 05/03/2017. FINDINGS: Left subclavian implanted cardiac defibrillator with leads to the right atrium and right ventricular apex. Median sternotomy wires and mediastinal surgical clips noted. Atherosclerosis of aortic arch. Cardiac silhouette top normal in size. Pulmonary vascular prominence. Prominent lung markings without focal infiltrate. Mildly low lung volumes. No large effusion or pneumothorax. Osseous structures normal. Upper abdomen normal. IMPRESSION: 1. Top normal cardiac size with evidence of volume overload. No mirza pulmonary edema. 2. Mildly low lung volumes. Electronically signed by: Fareed Smart M.D. 08/01/2017 4:44 PM Dictated Date/Time: 08/01/2017 4:43 PM CHEST COMBO ANGIO DISSECTION CLINICAL HISTORY: 46 years-old Male presenting with ^CP. TECHNIQUE: Multidetector CT angiography of the chest was performed before and after the administration of intravenous contrast. 3-D volumetric and/or maximum intensity projection (MIP) images were subsequently reconstructed for review. IV contrast: 94 mL of Optiray 320. A dose lowering technique was used consistent with the principles of ALARA (as low as reasonably achievable). COMPARISON: None. CT DOSE (mGy.cm): The estimated cumulative dose is 1743.40 mGycm. FINDINGS: Tripper topogram: Left subclavian implanted cardiac defibrillator with lead to the right atrium and right ventricular apex. Median sternotomy wires. Cardiomegaly. Vasculature: The study is adequate for assessment of the aorta. Precontrast imaging demonstrates no evidence of intramural hematoma. Postcontrast imaging demonstrates no evidence of dissection, penetrating ulcer, or aneurysm. Allowing for timing of the contrast bolus, no gross evidence of a filling defect within the pulmonary arteries to suggest embolus. Main pulmonary artery measuring 3.5 cm in diameter. No flattening of the interventricular septum. No intracardiac filling defect. No reflux of contrast into the hepatic veins. Remaining chest: On soft tissue windows, normal thyroid and thoracic inlet. No axillary, supraclavicular, hilar, or mediastinal lymphadenopathy. Sternotomy changes noted. Normal cardiac size though the left ventricle demonstrates myocardial thickening. No pericardial or pleural effusion. Hepatic steatosis. Significant parenchymal atrophy of the pancreas. On lung windows, minimal dependent changes likely atelectasis. Solid polygonal peripheral 5 mm nodule in the lingula (series 7 image 166). Solid 3 mm fissural nodule at the left apex (series 7 image 54). Airways patent. On bone windows, normal osseous structures. IMPRESSION: 1. No evidence of acute aortic injury. No acute intrathoracic pathology. 2. 2 solid pulmonary nodules in the left lung, the largest measuring 5 mm follow-up per Gabriel Society 2017 recommendations below. 3. Main pulmonary artery enlargement suggests pulmonary hypertension. 4. Postsurgical changes of sternotomy. 5. Hepatic steatosis. Please refer to below summary of Fleischner Society 2017 recommendations for follow-up of incidental CT nodules (H Kirit et al. Guidelines for management of incidental pulmonary nodules detected on CT images: From the Fleischner Society 2017. Radiology 2017; 284: 228-243.) SOLID NODULES Single nodule; size < 6 mm * Low risk patients: No routine follow-up * High risk patients: Optional CT at 12 months Single nodule; size 6-8 mm * Low risk patients: CT at 6-12 months, then consider CT at 18-24 months * High risk patients: CT at 6-12 months, then at 18-24 months Single nodule; size > 8 mm * Either low or high risk patients: Considered CT at 3 months, PET/CT, or tissue sampling Multiple nodules; size < 6 mm * Low risk patients: No routine follow up * High risk patients: Optional CT at 12 months Multiple nodules; size 6-8 mm * Low risk patients: CT at 3-6 months, then consider CT at 18-24 months * High risk patients: CT at 3-6 months, then at 18-24 months Multiple nodules; size > 8 mm * Low risk patients: CT at 3-6 months, then consider at 18-24 months * High risk patients: CT at 3-6 months, then at 18-24 months SUBSOLID NODULES Single ground-glass nodule * Nodule size < 6 mm: No routine follow-up * Nodule size > or = 6 mm: CT at 6-12 months to confirm persistence, then CT every 2 years until 5 years Single part-solid nodule * Nodule size < 6 mm: No routine follow-up * Nodules size > or = 6 mm: CT at 3-6 months to confirm persistence. If unchanged and solid component remains < 6 mm, annual CT should be performed for 5 years Multiple nodules * Nodule size < 6 mm: CT at 3-6 months. If stable, consider CT at 2 and 4 years. * Nodules size > or = 6 mm: CT at 3-6 months. Subsequent management based on the most suspicious nodule(s) NOTE: These guidelines apply to incidental nodules. These guidelines do not apply to patients younger than 35 years, immunocompromised patients, or patients with cancer. * Low risk patients: Minimal or absent history of smoking and/or other known risk factors * High risk patients: History of smoking, exposure to other carcinogens, emphysema, fibrosis, upper lobe location, family history of lung cancer, etc. If a nodule up to 8 mm is partly solid or is ground glass, further follow-up is required after 24 months to exclude possible slow growing adenocarcinoma. Electronically signed by: Fareed Smart M.D. 08/01/2017 6:14 PM Dictated Date/Time: 08/01/2017 6:07 PM Laboratory Results 08/01/17 15:48 Red Blood Count 6.05, Mean Corpuscular Volume 85.1, Mean Corpuscular Hemoglobin 30.6, Mean Corpuscular Hemoglobin Concent 35.9, Mean Platelet Volume 11.1, Neutrophils (%) (Auto) 65.5, Lymphocytes (%) (Auto) 23.4, Monocytes (%) (Auto) 8.2, Eosinophils (%) (Auto) 2.3, Basophils (%) (Auto) 0.3, Neutrophils # (Auto) 5.85, Lymphocytes # (Auto) 2.09, Monocytes # (Auto) 0.73, Eosinophils # (Auto) 0.21, Basophils # (Auto) 0.03 08/01/17 15:48 Test 08/01/17 15:48 08/01/17 16:46 08/01/17 19:50 White Blood Count 8.94 K/uL (4.8-10.8) Red Blood Count 6.05 M/uL (4.7-6.1) Hemoglobin 18.5 g/dL (14.0-18.0) Hematocrit 51.5 % (42-52) Mean Corpuscular Volume 85.1 fL (80-100) Mean Corpuscular Hemoglobin 30.6 pg (25-34) Mean Corpuscular Hemoglobin Concent 35.9 g/dl (32-36) Platelet Count 229 K/uL (130-400) Mean Platelet Volume 11.1 fL (7.4-10.4) Neutrophils (%) (Auto) 65.5 % Lymphocytes (%) (Auto) 23.4 % Monocytes (%) (Auto) 8.2 % Eosinophils (%) (Auto) 2.3 % Basophils (%) (Auto) 0.3 % Neutrophils # (Auto) 5.85 K/uL (1.4-6.5) Lymphocytes # (Auto) 2.09 K/uL (1.2-3.4) Monocytes # (Auto) 0.73 K/uL (0.11-0.59) Eosinophils # (Auto) 0.21 K/uL (0-0.5) Basophils # (Auto) 0.03 K/uL (0-0.2) RDW Standard Deviation 42.5 fL (36.4-46.3) RDW Coefficient of Variation 13.8 % (11.5-14.5) Immature Granulocyte % (Auto) 0.3 % Immature Granulocyte # (Auto) 0.03 K/uL (0.00-0.02) Prothrombin Time 10.0 SECONDS (9.0-12.0) Prothromb Time International Ratio 1.0 (0.9-1.1) Activated Partial Thromboplast Time 28.0 SECONDS (21.0-31.0) Partial Thromboplastin Ratio 1.1 Est Creatinine Clear Calc Drug Dose 112.1 ml/min Estimated GFR () 74.3 Estimated GFR (Non- 64.1 BUN/Creatinine Ratio 20.2 (10-20) Calcium Level 9.1 mg/dl (8.5-10.1) Total Bilirubin 0.6 mg/dl (0.2-1) Aspartate Amino Transf (AST/SGOT) 36 U/L (15-37) Alanine Aminotransferase (ALT/SGPT) 55 U/L (12-78) Alkaline Phosphatase 94 U/L (45-117) Total Creatine Kinase 105 U/L (39-308) Creatine Kinase MB 7.0 ng/ml (0.5-3.6) Creatine Kinase MB Ratio 6.7 (0-3.0) Total Protein 8.2 gm/dl (6.4-8.2) Albumin 4.2 gm/dl (3.4-5.0) Globulin 4.0 gm/dl (2.5-4.0) Albumin/Globulin Ratio 1.1 (0.9-2) Lipase 171 U/L (73-393) Chemistry Specimen Hemolysis Bedside Hemoglobin 16.7 g/dl (14.0-18.0) Bedside Hematocrit 49 % (42-52) Bedside Sodium 141 mEq/L (135-144) Bedside Potassium 4.5 mEq/L (3.3-5.0) Bedside Chloride 105 mEq/L (101-112) Bedside Total CO2 26 mEq/l (24-31) Anion Gap 15.0 mmol/L (16-25) Bedside Blood Urea Nitrogen 35 mg/dl (7-18) Bedside Creatinine 1.2 mg/dl (0.6-1.3) Bedside Glucose (other) 182 mg/dl (70-99) Bedside Ionized Calcium ([place]) 1.10 mmol/l (1.12-1.32) Urine Color YELLOW Urine Appearance CLEAR (CLEAR) Urine pH 5.0 (4.5-7.5) Urine Specific [place] > 1.045 (1.000-1.030) Urine Protein NEG (NEG) Urine Glucose (UA) NEG (NEG) Urine Ketones NEG (NEG) Urine Occult Blood 1+ (NEG) Urine Nitrite NEG (NEG) Urine Bilirubin NEG (NEG) Urine Urobilinogen NEG (NEG) Urine Leukocyte Esterase NEG (NEG) Urine WBC (Auto) 1-5 /hpf (0-5) Urine RBC (Auto) 0-4 /hpf (0-4) Urine Hyaline Casts (Auto) 0 /lpf (0-5) Urine Epithelial Cells (Auto) 0-5 /lpf (0-5) Urine Bacteria (Auto) NEG (NEG) Laboratory results per my review. Medications Administered Medications (Trade) Dose Ordered Sig/Ida Route Start Time Stop Time Status Last Admin Dose Admin Morphine Sulfate (MoRPHine SULFATE INJ) 4 mg Q15M PRN IV 08/01/17 16:30 08/01/17 21:31 DC 08/01/17 21:02 4 MG Ondansetron HCl (Zofran Inj) 4 mg NOW STAT IV 08/01/17 16:21 08/01/17 16:23 DC 08/01/17 16:45 4 MG Sodium Chloride 1,000 ml @ 80 mls/hr [id number] IV 08/01/17 19:54 08/02/17 20:53 08/01/17 21:35 80 MLS/HR ECG Per My Interpretation Indication: chest pain Rate (beats per minute): 111 Rhythm: other (Ventricular-paced ) Findings: LBBB, other (No wilton beats noted. ) Change: no significant change (increased rate, otherwise no change when compared to 05/02/2017) ED Course 1617: The patient was evaluated in room B11B. A complete history and physical examination were performed. 1621: Ordered Zofran 4 mg IV 1630: Ordered Morphine Sulfate 4 mg IV 1916: I reassessed the patient at this time. I discussed the results and treatment plan with the patient. I answered all pertaining questions that he had. He expressed understanding and verbalized agreement. The patient will be further evaluated. 1913: I spoke with Dr. Millard, cardiology. We discussed the patient's case. He recommends observing the patient's troponin levels and further evaluating the patient. 1919: I spoke with Dr Carrillo, [facility] hospitalist. We discussed the patient's case. The patient will be evaluated by the [facility] for further management. Medical Decision Prior records/ancillary studies reviewed. Triage Nursing notes reviewed. The patient's history was concerning for chest pain. Differential diagnosis: Etiologies such as cardiac ischemia, aortic dissection, pulmonary embolism, pneumonia, pneumothorax, musculoskeletal, infections, pericarditis, myocarditis , esophageal rupture, gastrointestinal, as well as others were entertained. The patient is a 46-year-old male who presented to the emergency department for an evaluation of chest discomfort. The patient describes chest discomfort which went between his shoulder blades. He was very diaphoretic and appeared to be in significant pain. He does have a history of a myomectomy for HOCUM. The patient states that this occurred in 2016. He had a cardiac catheterization at that time. The patient called his primary forgesmith and was sent to the emergency department for further evaluation. I discussed patient's laboratory and radiographic studies with him. He was treated with pain medication in the emergency department and was significantly improved. The patient's CT the chest did not show any definite signs of dissection. He does have a slightly elevated troponin. He has had a mild elevation in his troponin previously. I discussed his case with the on-call [facility] forgesmith as well as the on-call [facility] hospitalist. They have agreed to evaluate the patient in the emergency department for further management and disposition. Medication Reconcilliation Current Medication List: was personally reviewed by me Blood Pressure Screening Patient's blood pressure: Elevated blood pressure Blood pressure disposition: Elevated BP felt to be situational Consults Time Called: 1899 Consulting Physician: Dr. Millard, cardiology Returned Call: [address] Millard, cardiology. We discussed the patient's case. He recommends observing the patient's troponin levels and further evaluating the patient. Additional Consults: Time Called: 1919 Consulted Physician: KIEL Delaney hospitalist Additional Comments: I spoke with KIEL Delaney hospitalist. We discussed the patient's case. The patient will be evaluated by the [facility] for further management. Impression Primary Impression: Chest pain Additional Impression: Elevated troponin Scribe Attestation The scribe's documentation has been prepared under my direction and personally reviewed by me in its entirety. I confirm that the note above accurately reflects all work, treatment, procedures, and medical decision making performed by me. Departure Information Dispostion Being Evaluated By Hospitalist Referrals Alfred Davis M.D. (PCP) Problem Qualifiers Primary Impression: Chest pain Chest pain type: unspecified Qualified Codes: R07.9 - Chest pain, unspecified
[2017-08-01 16:45] LABS: BASO % 0.3 %; BASO ABS # 0.03 K/uL (0-0.2); EOS % 2.3 %; EOS ABS # 0.21 K/uL (0-0.5); HEMATOCRIT 51.5 % (42-52); HEMOGLOBIN 18.5 g/dL (14.0-18.0); IG# 0.03 K/uL (0.00-0.02); LYMPH % 23.4 %; LYMPH ABS # 2.09 K/uL (1.2-3.4); MEAN CELL VOLUME 85.1 fL (80-100); MEAN CORPUSCULAR HEMOGLOBIN 30.6 pg (25-34); MEAN CORPUSCULAR HGB CONC 35.9 g/dl (32-36); MEAN PLATELET VOLUME 11.1 fL (7.4-10.4); MONO % 8.2 %; MONO ABS # 0.73 K/uL (0.11-0.59); NEUT % 65.5 %; NEUT ABS # 5.85 K/uL (1.4-6.5); PLATELET COUNT 229 K/uL (130-400); RED CELL DISTRIBUTION WIDTH CV 13.8 % (11.5-14.5); RED CELL DISTRIBUTION WIDTH SD 42.5 fL (36.4-46.3); WHITE BLOOD COUNT 8.94 K/uL (4.8-10.8)
[2017-08-01] MEDS: MoRPHine SULFATE 4 MG/ML 1 ML CARP\\VIAL IV PRN ×3 (16:46→21:02)
--- NOTE | 2017-08-01 16:46 | DIAGNOSTIC IMAGING REPORT ---
CHEST ONE VIEW PORTABLE CLINICAL HISTORY: 46 years-old Male presenting with EVALUATE RESPIRATORY DISTRESS.DYSPNEA. TECHNIQUE: Portable upright AP view of the chest was obtained. COMPARISON: 05/03/2017. FINDINGS: Left subclavian implanted cardiac defibrillator with leads to the right atrium and right ventricular apex. Median sternotomy wires and mediastinal surgical clips noted. Atherosclerosis of aortic arch. Cardiac silhouette top normal in size. Pulmonary vascular prominence. Prominent lung markings without focal infiltrate. Mildly low lung volumes. No large effusion or pneumothorax. Osseous structures normal. Upper abdomen normal. IMPRESSION: 1. Top normal cardiac size with evidence of volume overload. No mirza pulmonary edema. 2. Mildly low lung volumes. Electronically signed by: Fareed Smart M.D. 08/01/2017 4:44 PM Dictated Date/Time: 08/01/2017 4:43 PM
[2017-08-01] MEDS ORDERED: FRS/40 PO (16:49)
[2017-08-01] MEDS ORDERED: ATOR10TA82 PO (16:49)
[2017-08-01] MEDS ORDERED: METO50TA16 PO (16:49)
[2017-08-01] MEDS ORDERED: FLUT1INH INH (16:49)
[2017-08-01 17:02] LABS: ISTAT CREATININE 1.2 mg/dl (0.6-1.3); ISTAT IONIZED CALCIUM 1.1 mmol/l (1.12-1.32); ISTAT POTASSIUM 4.5 mEq/L (3.3-5.0)
[2017-08-01] MEDS ORDERED: TAMS0.4C38 PO (17:02)
[2017-08-01] MEDS ORDERED: POTA-639 PO (17:07)
[2017-08-01 17:10] LABS: ALBUMIN 4.2 gm/dl (3.4-5.0); CALCIUM 9.1 mg/dl (8.5-10.1); CREATININE 1.33 mg/dl (0.60-1.40); POTASSIUM 3.7 mmol/L (3.5-5.1); TOTAL PROTEIN 8.2 gm/dl (6.4-8.2)
[2017-08-01] MEDS ORDERED: OPTIRAY 320 IV PRN (17:30)
--- NOTE | 2017-08-01 18:15 | DIAGNOSTIC IMAGING REPORT ---
CHEST COMBO ANGIO DISSECTION CLINICAL HISTORY: 46 years-old Male presenting with ^CP. TECHNIQUE: Multidetector CT angiography of the chest was performed before and after the administration of intravenous contrast. 3-D volumetric and/or maximum intensity projection (MIP) images were subsequently reconstructed for review. IV contrast: 94 mL of Optiray 320. A dose lowering technique was used consistent with the principles of ALARA (as low as reasonably achievable). COMPARISON: None. CT DOSE (mGy.cm): The estimated cumulative dose is 1743.40 mGycm. FINDINGS: Safety Investigator topogram: Left subclavian implanted cardiac defibrillator with lead to the right atrium and right ventricular apex. Median sternotomy wires. Cardiomegaly. Vasculature: The study is adequate for assessment of the aorta. Precontrast imaging demonstrates no evidence of intramural hematoma. Postcontrast imaging demonstrates no evidence of dissection, penetrating ulcer, or aneurysm. Allowing for timing of the contrast bolus, no gross evidence of a filling defect within the pulmonary arteries to suggest embolus. Main pulmonary artery measuring 3.5 cm in diameter. No flattening of the interventricular septum. No intracardiac filling defect. No reflux of contrast into the hepatic veins. Remaining chest: On soft tissue windows, normal thyroid and thoracic inlet. No axillary, supraclavicular, hilar, or mediastinal lymphadenopathy. Sternotomy changes noted. Normal cardiac size though the left ventricle demonstrates myocardial thickening. No pericardial or pleural effusion. Hepatic steatosis. Significant parenchymal atrophy of the pancreas. On lung windows, minimal dependent changes likely atelectasis. Solid polygonal peripheral 5 mm nodule in the lingula (series 7 image 166). Solid 3 mm fissural nodule at the left apex (series 7 image 54). Airways patent. On bone windows, normal osseous structures. IMPRESSION: 1. No evidence of acute aortic injury. No acute intrathoracic pathology. 2. 2 solid pulmonary nodules in the left lung, the largest measuring 5 mm follow-up per Gabriel Society 2017 recommendations below. 3. Main pulmonary artery enlargement suggests pulmonary hypertension. 4. Postsurgical changes of sternotomy. 5. Hepatic steatosis. Please refer to below summary of Fleischner Society 2017 recommendations for follow-up of incidental CT nodules (H Kirit et al. Guidelines for management of incidental pulmonary nodules detected on CT images: From the Fleischner Society 2017. Radiology 2017; 284: 228-243.) SOLID NODULES Single nodule; size < 6 mm * Low risk patients: No routine follow-up * High risk patients: Optional CT at 12 months Single nodule; size 6-8 mm * Low risk patients: CT at 6-12 months, then consider CT at 18-24 months * High risk patients: CT at 6-12 months, then at 18-24 months Single nodule; size > 8 mm * Either low or high risk patients: Considered CT at 3 months, PET/CT, or tissue sampling Multiple nodules; size < 6 mm * Low risk patients: No routine follow up * High risk patients: Optional CT at 12 months Multiple nodules; size 6-8 mm * Low risk patients: CT at 3-6 months, then consider CT at 18-24 months * High risk patients: CT at 3-6 months, then at 18-24 months Multiple nodules; size > 8 mm * Low risk patients: CT at 3-6 months, then consider at 18-24 months * High risk patients: CT at 3-6 months, then at 18-24 months SUBSOLID NODULES Single ground-glass nodule * Nodule size < 6 mm: No routine follow-up * Nodule size > or = 6 mm: CT at 6-12 months to confirm persistence, then CT every 2 years until 5 years Single part-solid nodule * Nodule size < 6 mm: No routine follow-up * Nodules size > or = 6 mm: CT at 3-6 months to confirm persistence. If unchanged and solid component remains < 6 mm, annual CT should be performed for 5 years Multiple nodules * Nodule size < 6 mm: CT at 3-6 months. If stable, consider CT at 2 and 4 years. * Nodules size > or = 6 mm: CT at 3-6 months. Subsequent management based on the most suspicious nodule(s) NOTE: These guidelines apply to incidental nodules. These guidelines do not apply to patients younger than 35 years, immunocompromised patients, or patients with cancer. * Low risk patients: Minimal or absent history of smoking and/or other known risk factors * High risk patients: History of smoking, exposure to other carcinogens, emphysema, fibrosis, upper lobe location, family history of lung cancer, etc. If a nodule up to 8 mm is partly solid or is ground glass, further follow-up is required after 24 months to exclude possible slow growing adenocarcinoma. Electronically signed by: Fareed Smart M.D. 08/01/2017 6:14 PM Dictated Date/Time: 08/01/2017 6:07 PM
--- NOTE | 2017-08-01 19:35 | History and Physical ---
History & Physical Date & Time of Service: Aug 01, 2017 at 19:28 Chief Complaint: Chest Pain Primary Care Physician: Alfred Davis M.D. History of Present Illness Source: patient 46M with a PMHx of CHF with AICD, MEENU p/w chest pain starting yesterday evening at rest. The pain is worse on exertion. Pt describe the pain as a sharp and stabbing (as if there is air in his chest that he cannot get out) that radiates into his back to a point between his scapula. He states that he can feel his heart beating and even saw pulsations on his abdomen (confirmed by daughter and spouse who were in the room in the ER). Patient has never had sensation like this before, he got worried because of his extensive cardiac history and [place] [facility] [place] and they advised him to come to the ER. Patient was recently seen for lower back pain - while he still has back pain, the pain isn't hurting him that much. At rest patient still has some feeling of having trapped air in his chest but there is no radiation of the pain to his scapula. ROS: BM regular, no leg swelling, no jaw or arm tingling. Does not wear oxygen at home. Needs a CPAP to sleep. Past Medical/Surgical History Medical Problems: (1) Acute bronchitis (2) Acute on chronic diastolic (congestive) heart failure (3) Annular Fissure with Disc Bulge (4) Back pain (5) Cardiomyopathy (6) Chest pain (7) CHF (congestive heart failure) (8) Closed fracture of cervical spine (9) Dyslipidemia (10) Dyspnea on exertion (11) Elevated blood pressure reading (12) Elevated troponin (13) Exertional dyspnea (14) Fluid overload (15) Headache (16) Heart failure (17) History of CHF (congestive heart failure) (18) History of heart disease (19) Hypertrophic cardiomyopathy (20) Hypertrophic cardiomyopathy (21) Hypoxia (22) Hypoxia (23) Implantation of internal cardiac defibrillator (24) Intractable back pain (25) Left medial knee pain (26) Left sided chest pain (27) Malaise and fatigue (28) Myocardial infarction (29) Persistent cough (30) Pleuritis (31) Right-sided chest pain (32) Right-sided chest pain (33) s p insertion AICD (34) s/p appendectomy (35) Shortness of breath (36) Sleep apnea (37) SOB (shortness of breath) (38) Syncope Family History Cancer 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 Heart disease Social History Smoking Status: Former Smoker Drug Use: none Marital Status: Housing status: lives with family Occupational Status: employed Immunizations History of Influenza Vaccine: Yes History of Tetanus Vaccine?: Yes History of Pneumococcal: Yes History of Hepatitis B Vaccine: No Allergies Coded Allergies: Erythromycin (Unverified Allergy, Mild, UNSURE, 07/26/17) Home Medications Scheduled Aspirin (Aspirin Ec), 81 MG PO DAILY Atorvastatin (Lipitor), 10 MG PO DAILY Fluticasone Furoate-Vilanterol (Breo Ellipta), 1 PUFF INH DAILY Furosemide (Lasix), 100 MG PO DAILY Metoprolol Tartrate (Lopressor) (Lopressor), 25 MG PO BID Potassium Ext Rel (Klor-Con), 20 MEQ PO DAILY Spironolactone (Aldactone), 25 MG PO DAILY Tamsulosin Hcl (Flomax), 0.4 MG PO DAILY Review of Systems Constitutional: + chills, No fever Respiratory: + shortness of breath, + dyspnea on exertion, No cough, No sputum , No wheezing Cardiovascular: + chest pain, + palpitations, No edema, No claudication Abdomen: No pain, No nausea, No vomiting, No diarrhea, No constipation Musculoskeletal: + joint pain (lower bach - chronic) Genitourinary - Male: No hematuria Neurologic: No memory loss Integumentary: No rash Physical Exam Vital Signs Date Time Temp Pulse Resp B/P (MAP) Pulse Ox O2 Delivery O2 Flow Rate FiO2 08/01/17 18:11 90 15 147/104 92 Nasal Cannula 2.0 08/01/17 17:05 96 27 132/77 93 Nasal Cannula 2.0 08/01/17 16:24 92 Room Air 08/01/17 16:23 105 08/01/17 16:17 36.7 100 18 123/77 92 Room Air 08/01/17 16:17 92 Room Air 08/01/17 16:17 2 Room Air General Appearance: WD/WN, + obese Head: normocephalic, atraumatic Eyes: normal inspection, PERRL, EOMI ENT: normal ENT inspection Neck: supple Respiratory/Chest: chest non-tender, lungs clear, normal breath sounds, no respiratory distress, no accessory muscle use, + pertinent finding (pt is wearing oxygen, i took it off and the sats stayed above 90%, pt states off O2 he 's around 92% at home. ) Cardiovascular: regular rate, rhythm, no edema, no gallop, no murmur, + pertinent finding (midline sternotomy scar with a horizental incision over the left chest. AICD site on left chest. ) Abdomen/GI: normal bowel sounds, non tender, soft, no organomegaly, no pulsatile mass Back: normal inspection, no CVA tenderness Extremities/Musculoskelatal: normal inspection, no calf tenderness, no pedal edema Neurologic/Psych: dowel pointer II-XII nml as tested, no motor/sensory deficits, alert, normal mood/affect, normal reflexes, oriented x 3 Diagnostics Laboratory Results Results Past 24 Hours Test 08/01/17 15:48 08/01/17 16:46 Range/Units White Blood Count 8.94 4.8-10.8 K/uL Red Blood Count 6.05 4.7-6.1 M/uL Hemoglobin 18.5 14.0-18.0 g/dL Hematocrit 51.5 42-52 % Mean Corpuscular Volume 85.1 80-100 fL Mean Corpuscular Hemoglobin 30.6 25-34 pg Mean Corpuscular Hemoglobin Concent 35.9 32-36 g/dl Platelet Count 229 130-400 K/uL Mean Platelet Volume 11.1 7.4-10.4 fL Neutrophils (%) (Auto) 65.5 % Lymphocytes (%) (Auto) 23.4 % Monocytes (%) (Auto) 8.2 % Eosinophils (%) (Auto) 2.3 % Basophils (%) (Auto) 0.3 % Neutrophils # (Auto) 5.85 1.4-6.5 K/uL Lymphocytes # (Auto) 2.09 1.2-3.4 K/uL Monocytes # (Auto) 0.73 0.11-0.59 K/uL Eosinophils # (Auto) 0.21 0-0.5 K/uL Basophils # (Auto) 0.03 0-0.2 K/uL RDW Standard Deviation 42.5 36.4-46.3 fL RDW Coefficient of Variation 13.8 11.5-14.5 % Immature Granulocyte % (Auto) 0.3 % Immature Granulocyte # (Auto) 0.03 0.00-0.02 K/uL Prothrombin Time 10.0 9.0-12.0 SECONDS Prothromb Time International Ratio 1.0 0.9-1.1 Activated Partial Thromboplast Time 28.0 21.0-31.0 SECONDS Partial Thromboplastin Ratio 1.1 Sodium Level 139 136-145 mmol/L Potassium Level 3.7 3.5-5.1 mmol/L Chloride Level 104 98-107 mmol/L Carbon Dioxide Level 27 21-32 mmol/L Anion Gap 8.0 15.0 16-25 mmol/L Blood Urea Nitrogen 27 7-18 mg/dl Creatinine 1.33 0.60-1.40 mg/dl Est Creatinine Clear Calc Drug Dose 112.1 ml/min Estimated GFR () 74.3 Estimated GFR (Non- 64.1 BUN/Creatinine Ratio 20.2 10-20 Random Glucose 134 70-99 mg/dl Calcium Level 9.1 8.5-10.1 mg/dl Total Bilirubin 0.6 0.2-1 mg/dl Aspartate Amino Transf (AST/SGOT) 36 15-37 U/L Alanine Aminotransferase (ALT/SGPT) 55 12-78 U/L Alkaline Phosphatase 94 45-117 U/L Total Creatine Kinase 105 39-308 U/L Creatine Kinase MB 7.0 0.5-3.6 ng/ml Creatine Kinase MB Ratio 6.7 0-3.0 Troponin I 0.115 0-0.045 ng/ml Total Protein 8.2 6.4-8.2 gm/dl Albumin 4.2 3.4-5.0 gm/dl Globulin 4.0 2.5-4.0 gm/dl Albumin/Globulin Ratio 1.1 0.9-2 Chemistry Specimen Hemolysis Bedside Hemoglobin 16.7 14.0-18.0 g/dl Bedside Hematocrit 49 42-52 % Bedside Sodium 141 135-144 mEq/L Bedside Potassium 4.5 3.3-5.0 mEq/L Bedside Chloride 105 101-112 mEq/L Bedside Total CO2 26 24-31 mEq/l Bedside Blood Urea Nitrogen 35 7-18 mg/dl Bedside Creatinine 1.2 0.6-1.3 mg/dl Bedside Glucose (other) 182 70-99 mg/dl Bedside Ionized Calcium ([place]) 1.10 1.12-1.32 mmol/l Diagnostic Radiology CHEST COMBO ANGIO DISSECTION CLINICAL HISTORY: 46 years-old Male presenting with ^CP. TECHNIQUE: Multidetector CT angiography of the chest was performed before and after the administration of intravenous contrast. 3-D volumetric and/or maximum intensity projection (MIP) images were subsequently reconstructed for review. IV contrast: 94 mL of Optiray 320. A dose lowering technique was used consistent with the principles of ALARA (as low as reasonably achievable). COMPARISON: None. CT DOSE (mGy.cm): The estimated cumulative dose is 1743.40 mGycm. FINDINGS: Flux Mixer topogram: Left subclavian implanted cardiac defibrillator with lead to the right atrium and right ventricular apex. Median sternotomy wires. Cardiomegaly. Vasculature: The study is adequate for assessment of the aorta. Precontrast imaging demonstrates no evidence of intramural hematoma. Postcontrast imaging demonstrates no evidence of dissection, penetrating ulcer, or aneurysm. Allowing for timing of the contrast bolus, no gross evidence of a filling defect within the pulmonary arteries to suggest embolus. Main pulmonary artery measuring 3.5 cm in diameter. No flattening of the interventricular septum. No intracardiac filling defect. No reflux of contrast into the hepatic veins. Remaining chest: On soft tissue windows, normal thyroid and thoracic inlet. No axillary, supraclavicular, hilar, or mediastinal lymphadenopathy. Sternotomy changes noted. Normal cardiac size though the left ventricle demonstrates myocardial thickening. No pericardial or pleural effusion. Hepatic steatosis. Significant parenchymal atrophy of the pancreas. On lung windows, minimal dependent changes likely atelectasis. Solid polygonal peripheral 5 mm nodule in the lingula (series 7 image 166). Solid 3 mm fissural nodule at the left apex (series 7 image 54). Airways patent. On bone windows, normal osseous structures. IMPRESSION: 1. No evidence of acute aortic injury. No acute intrathoracic pathology. 2. 2 solid pulmonary nodules in the left lung, the largest measuring 5 mm follow-up per Gabriel Society 2017 recommendations below. 3. Main pulmonary artery enlargement suggests pulmonary hypertension. 4. Postsurgical changes of sternotomy. 5. Hepatic steatosis. ECHOCARDIOGRAM in APRIL 2017. * 1. Normal left ventricular size and systolic function. EF 60-65%. [place] appears hypokinetic to akinetic; otherwise, normal wall motion. Severe asymmetric hypertrophy of the anteroseptal base, measuring approximately 2.8 cm otherwise, moderate concentric left ventricular hypertrophy. * 2. The left atrium is mildly dilated. * 3. Mild aortic regurgitation. * 4. No significant LVOT obstruction suggested. * 5. Technically difficult study, enhanced with IV Definity. * 6. No significant change from prior study on 11/29/2016. CHEST ONE VIEW PORTABLE CLINICAL HISTORY: 46 years-old Male presenting with EVALUATE RESPIRATORY DISTRESS.DYSPNEA. TECHNIQUE: Portable upright AP view of the chest was obtained. COMPARISON: 05/03/2017. FINDINGS: Left subclavian implanted cardiac defibrillator with leads to the right atrium and right ventricular apex. Median sternotomy wires and mediastinal surgical clips noted. Atherosclerosis of aortic arch. Cardiac silhouette top normal in size. Pulmonary vascular prominence. Prominent lung markings without focal infiltrate. Mildly low lung volumes. No large effusion or pneumothorax. Osseous structures normal. Upper abdomen normal. IMPRESSION: 1. Top normal cardiac size with evidence of volume overload. No mirza pulmonary edema. 2. Mildly low lung volumes. Impression Assessment and Plan 46M with a PMHx of CHF with AICD, MEENU p/w chest pain radiating to the back. Admitting for NSTEMI. Chest Pain radiating to the back / NSTEMI BP right arm was 136/84 and left arm was 128/85 EKG showed no acute ST changes. CT for dissection negative. Cards consulted. Trend [place]. (baseline appears to be around 0.09) LIPASE PENDING - ORDERED STAT. Watch O2 saturation. c/w home ASA & metoprolol Daily EKGs c/w daily Lasix PO. Home Meds c/w Aldactone, Flomax and Lipitor. ENDO: Last HBA1C was 5.7 Diet: HPO except meds, NSS at 80mls/hr. DVT Proph: Hep SQ TID, SCDs Full Code Resuscitation Status VTE Prophylaxis Will order VTE Prophylaxis: Yes Resident Involvement: Resident Care Provided Care Provided: Adult Hospital Medicine Reviewed: Pt Seen/Exam by Me History Patient seen and examined, chart reviewed, case discussed with Dr. Russell and I agree with his assessment and plan as documented in his note. Briefly, patient is a 46yo male with history of HOCM s/p myomectomy with AICD in place presenting with palpitations and feeling of "air in his chest", some lightheadedness. He states that he can see his heart beating during the episodes. No further complaints. No ICD firing. No chest pain at present. Constitutional: denies: no symptoms reported Respiratory: negative: no symptoms reported Cardiovascular: reports see HPI, reports palpitations, denies edema, denies syncope Gastrointestinal/Abdominal: negative: abdominal pain, diarrhea, nausea Skin: negative: no symptoms reported Neurological/Psych: negative: no symptoms reported General Appearance: WD/WN, no apparent distress Eye Exam: bilateral eye normal inspection Ears, Nose, Throat: normal ENT inspection Neck: supple, trachea midline Respiratory: lungs clear, normal breath sounds Cardiovascular: normal peripheral pulses, regular rate, rhythm, no edema, no gallop, no murmur Gastrointestinal: normal bowel sounds, non tender, soft Extremities: no pedal edema, no calf tenderness Neurologic/Psychiatric: oriented x 3 Skin Characteristics: normal color, warm/dry Assessment/Plan 46yo male with history of HOCM s/p myomectomy, AICD in place presenting with episodic palpitations, feeling of "air in his chest" x 2 days. Patient V-paced on EKG, no change. Troponins mildly elevated 0.155 --> 0.019 -Continue ASA and statin -Continue BB -Cardiology consult in AM Remainder of plan per resident note
[2017-08-01] MEDS ORDERED: MAGNESIUM HYDROXIDE SUSP 30 ML UDC PO PRN (20:00)
[2017-08-01] MEDS ORDERED: POLYETHYLENE (MIRALAX) 17 GM PACK PO PRN (20:00)
[2017-08-01] MEDS ORDERED: ZOLPIDEM TARTRATE 5 MG TAB PO PRN ×2 (20:00)
[2017-08-01] MEDS ORDERED: ALUMINUM/MAGNESIUM/SIMETH (MAALOX MAX) 30 ML UDC PO PRN (20:00)
[2017-08-01] MEDS ORDERED: ACETAMINOPHEN 325 MG TAB PO PRN (20:00)
[2017-08-01] MEDS ORDERED: IV FLUIDS COMPLETED PRN (20:30)
[2017-08-01] MEDS: SODIUM CHLORIDE 0.9% 1000ML 1,000 ML IV SCH (21:35)
[2017-08-01 22:15] VITALS: BP 129/83; PULSE 85; TEMP 36.5; O2SAT 95; Ht 190.5 cm; Wt 153.0 kg
[2017-08-01] MEDS: METOPROLOL TARTRATE 25 MG TAB PO SCH (22:21)
[2017-08-01] MEDS: HEPARIN SOD 5000 UNIT/0.5 ML CARP SQ SCH (22:23)
[2017-08-01 22:38] VITALS: BP_SYST 132; BP_SYST 133; BP_SYST 162; BP_DIAS 86; BP_DIAS 95; BP_DIAS 96; PULSE 84; PULSE 90; PULSE 95
[2017-08-01] MEDS ORDERED: MoRPHine SULFATE 2 MG/ML CARP IV STA (22:40)
[2017-08-01 23:33] VITALS: BP 122/76; PULSE 79; TEMP 36.8; O2SAT 93
[2017-08-02] VITALS (10 sets, daily range): BP systolic 114–144; BP diastolic 75–83; PULSE 68–91; TEMP 36.3–36.7; O2SAT 92–96
[2017-08-02] MEDS: MoRPHine SULFATE 2 MG/ML CARP IV PRN ×6 (02:39→21:04)
[2017-08-02 05:22] LABS: BASO % 0.6 %; BASO ABS # 0.04 K/uL (0-0.2); EOS % 3.8 %; EOS ABS # 0.27 K/uL (0-0.5); HEMATOCRIT 45.4 % (42-52); HEMOGLOBIN 15.8 g/dL (14.0-18.0); IG# 0.04 K/uL (0.00-0.02); LYMPH % 25.4 %; LYMPH ABS # 1.81 K/uL (1.2-3.4); MEAN CELL VOLUME 87.3 fL (80-100); MEAN CORPUSCULAR HEMOGLOBIN 30.4 pg (25-34); MEAN CORPUSCULAR HGB CONC 34.8 g/dl (32-36); MONO % 10.5 %; MONO ABS # 0.75 K/uL (0.11-0.59); NEUT % 59.1 %; NEUT ABS # 4.22 K/uL (1.4-6.5); PLATELET COUNT 196 K/uL (130-400); RED CELL DISTRIBUTION WIDTH SD 44.7 fL (36.4-46.3); WHITE BLOOD COUNT 7.13 K/uL (4.8-10.8)
[2017-08-02] MEDS: HEPARIN SOD 5000 UNIT/0.5 ML CARP SQ SCH ×3 (05:53→21:05)
[2017-08-02 05:58] LABS: ALBUMIN 3.4 gm/dl (3.4-5.0); CALCIUM 8.8 mg/dl (8.5-10.1); CREATININE 1.39 mg/dl (0.60-1.40); POTASSIUM 4.3 mmol/L (3.5-5.1); TOTAL PROTEIN 6.8 gm/dl (6.4-8.2)
[2017-08-02] MEDS: ASPIRIN 81 MG ECTAB PO SCH (08:30)
[2017-08-02] MEDS: SPIRONOLACTONE 25 MG TAB PO SCH (08:31)
[2017-08-02] MEDS: TAMSULOSIN HCL 0.4 MG CAP PO SCH (08:31)
[2017-08-02] MEDS: POTASSIUM CHLORIDE 20 MEQ TABCR PO SCH (08:31)
[2017-08-02] MEDS: ATORVASTATIN 10 MG TAB PO SCH (08:32)
[2017-08-02] MEDS: METOPROLOL TARTRATE 25 MG TAB PO SCH (08:32)
[2017-08-02] MEDS: FUROSEMIDE 40 MG TAB PO SCH (08:33)
[2017-08-02] MEDS: SODIUM CHLORIDE 0.9% 1000ML 1,000 ML IV SCH (08:34)
--- NOTE | 2017-08-02 09:12 | Family Medicine Progress Note ---
Progress Note Date of Service Aug 02, 2017. Subjective Pt evaluation today including: conversation w/ patient Found patient resting comfortably in the bed. He recounts the events in the HPI. This morning, he says his symptoms are resolved when he does not move at all. However, any attempted movement, including sitting up in bed, results in a return of his "air in my chest" discomfort and feeling of palpitations. He denies any SOB, N/V, or other acute medical concerns this morning. Constitutional: No fever, No chills Respiratory: No cough, No shortness of breath Cardiovascular: + chest pain, No edema Abdomen: No pain, No nausea, No vomiting Medications Current Inpatient Medications Medications (Trade) Dose Ordered Sig/Ida Route Start Time Stop Time Status Last Admin Dose Admin Ioversol (Optiray 320) 100 ml UD PRN IV 08/01/17 17:30 08/05/17 17:29 Heparin Sodium (Porcine) (Heparin Sq 5000 Unit/0.5ml) 5,000 unit Q8H SQ 08/01/17 22:00 08/31/17 21:59 08/02/17 05:53 5,000 UNIT Sodium Chloride 1,000 ml @ 80 mls/hr [id number] IV 08/01/17 19:54 08/02/17 20:53 08/02/17 08:34 80 MLS/HR Acetaminophen (Tylenol Tab) 650 mg Q4H PRN PO 08/01/17 20:00 08/31/17 19:59 Al Hydrox/Mg Hydrox/Simethicone (Maalox Max Susp) 15 ml Q4H PRN PO 08/01/17 20:00 08/31/17 19:59 Magnesium Hydroxide (Milk Of Magnesia Susp) 30 ml Q12H PRN PO 08/01/17 20:00 08/31/17 19:59 Zolpidem Tartrate (Ambien Tab) 5 mg HSZ PRN PO 08/01/17 20:00 08/31/17 19:59 Ondansetron HCl (Zofran Inj) 4 mg Q6H PRN IV 08/01/17 20:00 08/31/17 19:59 Polyethylene (Miralax Powder Packet) 17 gm DAILY PRN PO 08/01/17 20:00 08/31/17 19:59 Aspirin (Ecotrin Tab) 81 mg DAILY PO 08/02/17 09:00 09/01/17 08:59 08/02/17 08:30 81 MG Atorvastatin Calcium (Lipitor Tab) 10 mg DAILY PO 08/02/17 09:00 09/01/17 08:59 08/02/17 08:32 10 MG Furosemide (Lasix Tab) 100 mg DAILY PO 08/02/17 09:00 09/01/17 08:59 08/02/17 08:33 100 MG Metoprolol Tartrate (Lopressor Tab) 25 mg BID PO 08/01/17 21:00 08/31/17 20:59 08/02/17 08:32 25 MG Potassium Chloride (Klor-Con Tab) 20 meq DAILY PO 08/02/17 09:00 09/01/17 08:59 08/02/17 08:31 20 MEQ Spironolactone (Aldactone Tab) 25 mg DAILY PO 08/02/17 09:00 09/01/17 08:59 08/02/17 08:31 25 MG Tamsulosin HCl (Flomax Cap) 0.4 mg DAILY PO 08/02/17 09:00 09/01/17 08:59 08/02/17 08:31 0.4 MG Miscellaneous Information (Order Awaiting Action) 1 ea QS N/A 08/02/17 00:00 09/01/17 00:00 Miscellaneous (Iv Fluids Completed) 1 ea PRN PRN N/A 08/01/17 20:30 08/01/18 20:29 Morphine Sulfate (MoRPHine SULFATE INJ) 2 mg Q2H PRN IV 08/01/17 22:45 08/15/17 22:44 08/02/17 08:34 2 MG Objective Vital Signs Date Time Temp Pulse Resp B/P (MAP) Pulse Ox O2 Delivery O2 Flow Rate FiO2 08/02/17 07:36 36.6 68 20 115/75 (88) 94 Room Air 08/02/17 04:00 CPAP 08/02/17 03:39 36.7 78 18 116/78 (91) 93 CPAP 08/02/17 00:34 Room Air CPAP 08/02/17 00:25 83 92 08/01/17 23:33 36.8 79 18 122/76 (91) 93 CPAP 08/01/17 22:38 84 162/96 (118) 90 132/86 (101) 95 133/95 (108) 08/01/17 22:15 36.5 85 21 129/83 95 Room Air 08/01/17 21:05 83 20 136/89 94 Room Air 08/01/17 18:11 90 15 147/104 92 Nasal Cannula 2.0 08/01/17 17:05 96 27 132/77 93 Nasal Cannula 2.0 08/01/17 16:24 92 Room Air 08/01/17 16:23 105 08/01/17 16:17 36.7 100 18 123/77 92 Room Air 08/01/17 16:17 92 Room Air 08/01/17 16:17 2 Room Air Physical Exam Notes: General Appearance: Awake, alert & oriented, speaking easily, appears comfortable in general when lying still in bed, NAD. CV: +S1S2 RRR, no murmur. Left upper chest ICD in place. Midline sternotomy scar. Pulm: Clear to auscultation throughout. Abdomen: +BS, soft, non-tender, non-distended. Extremities: No pedal edema or calf tenderness. Moving all extremities naturally and easily. Neuro: No gross neuro deficits. Lines: PIV. Laboratory Results 08/02/17 05:07 Red Blood Count 5.20, Mean Corpuscular Volume 87.3, Mean Corpuscular Hemoglobin 30.4, Mean Corpuscular Hemoglobin Concent 34.8, Mean Platelet Volume 11.0, Neutrophils (%) (Auto) 59.1, Lymphocytes (%) (Auto) 25.4, Monocytes (%) (Auto) 10.5, Eosinophils (%) (Auto) 3.8, Basophils (%) (Auto) 0.6, Neutrophils # (Auto ) 4.22, Lymphocytes # (Auto) 1.81, Monocytes # (Auto) 0.75, Eosinophils # (Auto ) 0.27, Basophils # (Auto) 0.04 08/02/17 05:07 Test 08/01/17 15:48 08/01/17 16:46 08/01/17 19:50 08/02/17 05:07 Prothrombin Time 10.0 SECONDS (9.0-12.0) Prothromb Time International Ratio 1.0 (0.9-1.1) Activated Partial Thromboplast Time 28.0 SECONDS (21.0-31.0) Partial Thromboplastin Ratio 1.1 Total Creatine Kinase 105 U/L (39-308) Creatine Kinase MB 7.0 ng/ml (0.5-3.6) Creatine Kinase MB Ratio 6.7 (0-3.0) Lipase 171 U/L (73-393) Bedside Hemoglobin 16.7 g/dl (14.0-18.0) Bedside Hematocrit 49 % (42-52) Bedside Sodium 141 mEq/L (135-144) Bedside Potassium 4.5 mEq/L (3.3-5.0) Bedside Chloride 105 mEq/L (101-112) Bedside Total CO2 26 mEq/l (24-31) Bedside Blood Urea Nitrogen 35 mg/dl (7-18) Bedside Creatinine 1.2 mg/dl (0.6-1.3) Bedside Glucose (other) 182 mg/dl (70-99) Bedside Ionized Calcium ([place]) 1.10 mmol/l (1.12-1.32) Urine Color YELLOW Urine Appearance CLEAR (CLEAR) Urine pH 5.0 (4.5-7.5) Urine Specific [place] > 1.045 (1.000-1.030) Urine Protein NEG (NEG) Urine Glucose (UA) NEG (NEG) Urine Ketones NEG (NEG) Urine Occult Blood 1+ (NEG) Urine Nitrite NEG (NEG) Urine Bilirubin NEG (NEG) Urine Urobilinogen NEG (NEG) Urine Leukocyte Esterase NEG (NEG) Urine WBC (Auto) 1-5 /hpf (0-5) Urine RBC (Auto) 0-4 /hpf (0-4) Urine Hyaline Casts (Auto) 0 /lpf (0-5) Urine Epithelial Cells (Auto) 0-5 /lpf (0-5) Urine Bacteria (Auto) NEG (NEG) White Blood Count 7.13 K/uL (4.8-10.8) Red Blood Count 5.20 M/uL (4.7-6.1) Hemoglobin 15.8 g/dL (14.0-18.0) Hematocrit 45.4 % (42-52) Mean Corpuscular Volume 87.3 fL (80-100) Mean Corpuscular Hemoglobin 30.4 pg (25-34) Mean Corpuscular Hemoglobin Concent 34.8 g/dl (32-36) Platelet Count 196 K/uL (130-400) Mean Platelet Volume 11.0 fL (7.4-10.4) Neutrophils (%) (Auto) 59.1 % Lymphocytes (%) (Auto) 25.4 % Monocytes (%) (Auto) 10.5 % Eosinophils (%) (Auto) 3.8 % Basophils (%) (Auto) 0.6 % Neutrophils # (Auto) 4.22 K/uL (1.4-6.5) Lymphocytes # (Auto) 1.81 K/uL (1.2-3.4) Monocytes # (Auto) 0.75 K/uL (0.11-0.59) Eosinophils # (Auto) 0.27 K/uL (0-0.5) Basophils # (Auto) 0.04 K/uL (0-0.2) RDW Standard Deviation 44.7 fL (36.4-46.3) RDW Coefficient of Variation 14.0 % (11.5-14.5) Immature Granulocyte % (Auto) 0.6 % Immature Granulocyte # (Auto) 0.04 K/uL (0.00-0.02) Anion Gap 5.0 mmol/L (3-11) Est Creatinine Clear Calc Drug Dose 107.2 ml/min Estimated GFR () 70.4 Estimated GFR (Non- 60.8 BUN/Creatinine Ratio 20.7 (10-20) Calcium Level 8.8 mg/dl (8.5-10.1) Magnesium Level 2.5 mg/dl (1.8-2.4) Total Bilirubin 0.5 mg/dl (0.2-1) Aspartate Amino Transf (AST/SGOT) 33 U/L (15-37) Alanine Aminotransferase (ALT/SGPT) 46 U/L (12-78) Alkaline Phosphatase 73 U/L (45-117) Troponin I 0.131 ng/ml (0-0.045) Total Protein 6.8 gm/dl (6.4-8.2) Albumin 3.4 gm/dl (3.4-5.0) Globulin 3.4 gm/dl (2.5-4.0) Albumin/Globulin Ratio 1.0 (0.9-2) Chemistry Specimen Hemolysis Assessment and Plan 46 yo male admitted on 01Aug2017 for chest pain. PMH: Hypertrophic cardiomyopathy s/p myectomy and MV repair on 02Jan2016 at [facility] [place] , dual-chamber ICD implantation on 02May2017, complete heart block s/p dual- chamber ICD, diastolic CHF, HTN, HLD, sleep apnea on CPAP, low back pain, BPH, closed fracture of cervical spine, s/p appendectomy. Chest pain / palpitations: Occurs with exertion, virtually resolved with rest, including this morning. EKG is a ventricularly-paced rhythm. Minimal TnI elevation, noted serially, is near his baseline and may be due to the HCM. Last cath 30Jun2015 was without significant CAD. Current chest symptoms may be due to his HCM. Cardiology onboard (see their note), recommended pacemaker interrogation. See further discussion below. From a pulm standpoint, no noted fevers, SOB, has clear lungs on exam, and both CXR + CTA chest did not note any acute pulmonary findings. Hypertrophic cardiomyopathy (HCM): Cardiac echo this morning (30Mar) noted EF 40-45% with some near-global hypokinesis (but poor image quality). Cardiology onboard, they changed to metoprolol succinate (Toprol XL) to 100 mg BID. Chronic diastolic CHF: On home lasix 100 mg daily. No current SOB or peripheral edema to suggest volume overload. Complete heart block: S/p dual-chamber ICD. Interrogation per EP as discussed above. BPH: History of same. On home flomax. HTN and HLD: History of same. See above BB dosing. On home lipitor 10 mg and Aldactone 25 mg. Low back pain: Lumbar spine MRI on 26Jul2017 showed annular fissure with disc bulge and mild facet arthropathy at L5-S1 without spinal stenosis. Tylenol prn for pain here. Pulmonary nodules: Noted on 29Mar CTA chest. Needs related PCM follow-up at time of discharge. Hepatic steatosis: Noted on 29Mar CTA chest. Needs related PCM follow-up at time of discharge. Code status: Full code. Diet: Heart healthy, low sodium (2 gm). DVT prophy: Heparin TID. PT/OT: Deferred. Disbo: Admit for observation on telemetry. Lives at home alone. Resident Physician Supervision Note: I was present with Dr. Mera during the history and exam. I discussed the case with the resident and agree with the findings and plan as documented in the note. Any exceptions or clarifications are listed here: Upon my exam early this afternoon, the patient was seated in bed eating lunch. He denied symptoms while seated, but reports the symptoms as noted above correlate with standing and any exertion greater than standing. Will continue to monitor and discuss with cardiology. Documented By: Dallas Espinosa Resident Tracking Resident Involvement: Resident Care Provided Care Provided: Adult Hospital Medicine (inpatient)
--- NOTE | 2017-08-02 09:16 | ECHOCARDIOGRAM REPORT ---
*NOTICE TO RECEIVING DEMOCRAT AGENCY This information is strictly Confidential and protected under [place] law. [place] law prohibits you from making any further disclosure of this information unless further disclosure is expressly permitted by the written consent of the person to whom it pertains or is authorized by law. A general authorization for the release of medical or other information is not sufficient for this purpose. Hospital accepts no responsibility if the information is made available to any other person, INCLUDING THE PATIENT. Interpretation Summary * Name: JULISSA MARIN Study Date: 08/02/2017 07:08 AM BP: 115/75 mmHg * Patient Location: C.2T\S\E216\S\1 HR: 68 * : 1970 (M/d/yyyy) Gender: Male Height: 75 in * Age: 46 yrs Ethnicity: CA Weight: 343 lb * Ordering Physician: Alee Carrillo * Referring Physician: Isaías Hogan * Performed By: Alee Sutton RDCS * * Reason For Study: PALPITATIONS * BSA: 2.8 m2 * Limited echo for function * -- Conclusions -- * 1. Normal left ventricular size with mildly to moderately reduced systolic function. EF 40-45%. Apical akinesis. Global hypokinesis with sparing of the inferolateral wall. Severe asymmetric hypertrophy of the anteroseptum, consistent with hypertrophic cardiomyopathy. * 2. Limited 2-D study with limited spectral Doppler. * 3. Poor image quality, enhanced with IV Definity. * 4. Compared to prior study on 04/30/2017, LV systolic function has declined. Procedure Details * A contrast injection of Definity was performed to improve assessment of LV function. * Contrast was injected into an intravenous site in the left arm. * Lot # [id number] of Definity utilized for procedure. * Expiration date AUG 22. * The attending nurse who injected the contrast agent was GARY BRANCH. Left Ventricle * Normal left ventricular size with mildly to moderately reduced systolic function. EF 40-45%. Apical akinesis. Global hypokinesis with sparing of the inferolateral wall. Severe asymmetric hypertrophy of the anteroseptum, consistent with hypertrophic cardiomyopathy. Right Ventricle * The right ventricle is not well visualized. Atria * The left atrium is not well visualized. * Right atrium not well visualized. Mitral Valve * The mitral valve is grossly normal. Tricuspid Valve * The tricuspid valve is not well visualized. Aortic Valve * The aortic valve is not well visualized. * No hemodynamically significant valvular aortic stenosis. Pulmonic Valve * The pulmonic valve is not well visualized. Great Vessels * The aortic root is normal size. Pericardium/Pleural * There is no pericardial effusion. Great Vessels * IVC not well visualized. MMode 2D Measurements and Calculations IVSd 3.2 cm LVIDd 4.3 cm LVIDs 3.6 cm LVPWd 1.6 cm IVS/LVPW 1.9 FS 16.4 % EDV(Teich) 80.9 ml ESV(Teich) 52.7 ml EF(Teich) 34.8 % EDV(cubed) 76.9 ml ESV(cubed) 44.9 ml EF(cubed) 41.7 % LV mass(C)d 553.5 grams LV mass(C)dI 200.6 grams/m\S\2 SV(Teich) 28.2 ml SI(Teich) 10.2 ml/m\S\2 SV(cubed) 32.0 ml SI(cubed) 11.6 ml/m\S\2 Ao root diam 3.5 cm Ao root area 9.4 cm\S\2 LVAd ap4 37.3 cm\S\2 LVLd ap4 9.9 cm EDV(MOD-sp4) 114.8 ml EDV(sp4-el) 119.0 ml LVAs ap4 26.4 cm\S\2 LVLs ap4 9.4 cm ESV(MOD-sp4) 61.6 ml ESV(sp4-el) 62.7 ml EF(MOD-sp4) 46.4 % EF(sp4-el) 47.3 % LVAd ap2 37.0 cm\S\2 LVLd ap2 9.6 cm EDV(MOD-sp2) 112.2 ml EDV(sp2-el) 121.1 ml LVAs ap2 28.7 cm\S\2 LVLs ap2 9.4 cm ESV(MOD-sp2) 69.7 ml ESV(sp2-el) 74.5 ml EF(MOD-sp2) 37.8 % EF(sp2-el) 38.5 % LVLd %diff -3.07 % EDV(MOD-bp) 110.6 ml LVLs %diff -0.86 % ESV(MOD-bp) 64.7 ml EF(MOD-bp) 41.5 % SV(MOD-sp4) 53.3 ml SI(MOD-sp4) 19.3 ml/m\S\2 SV(MOD-sp2) 42.4 ml SI(MOD-sp2) 15.4 ml/m\S\2 SV(MOD-bp) 45.9 ml SI(MOD-bp) 16.6 ml/m\S\2 SV(sp4-el) 56.2 ml SI(sp4-el) 20.4 ml/m\S\2 SV(sp2-el) 46.6 ml SI(sp2-el) 16.9 ml/m\S\2 Doppler Measurements and Calculations Ao V2 max 147.7 cm/sec Ao max PG 8.7 mmHg Ao max PG (full) 4.8 mmHg LV V1 max PG 3.9 mmHg LV V1 max 98.5 cm/sec
--- NOTE | 2017-08-02 09:50 | CARDIOLOGY CONSULTATION ---
DATE OF CONSULTATION: 08/02/2017 TIME: 09:13 a.m. CONSULTING PHYSICIAN: Dr. Stringer. REASON FOR CONSULTATION: Chest pain with defibrillator. HISTORY OF PRESENT ILLNESS: Mr. Connolly is a pleasant 46-year-old gentleman with a history significant for hypertrophic cardiomyopathy status post septal myectomy and mitral valve repair, dual chamber ICD, dyslipidemia, hypertension, and sleep apnea on CPAP. He also has a history of complete heart block and chronic diastolic CHF. He was last seen in the office on 07/08/2017 and was supposed to follow up 2 days later to have his ICD evaluated with electrophysiology, but he did not keep that appointment. He was feeling relatively well at last visit and metoprolol was increased to 50 mg twice daily. He then recently underwent an MRI of his lumbar spine on 07/26/2017 as he has been having back pain ever since falling in April. At that time, his ICD therapy was disabled and was to be readjusted following the MRI. He did well for a few days until 2 days ago. Two days ago in the evening, he developed some inferior scapular pain and some lower chest discomfort described as a feeling as though there was air in his chest near the epigastric and lower chest area. This occurred while sitting. He then felt as though his heart was beating out of his chest. He and other people with him were apparently able to notice that his heart beating through his chest and upper abdomen. He states it was very uncomfortable. He was diaphoretic when this occurred. It continued to occur intermittently with any type of movement. Lying down or sitting still without movement, the symptoms would resolve. The motion of sitting up would cause the palpitations once again recur and any type of exertion would also reproduce the symptoms. He felt he has been feeling lightheaded with movement, but denies syncope or near syncope. He denies orthopnea. He otherwise denies dyspnea. He denies edema, melena, hematochezia, hematuria, or other bleeding. He has been maintaining a low sodium diet and has been taking his medications without adverse reactions. Currently, while sitting in bed, he is asymptomatic. He once again felt his palpitations, however, when sitting upright to finish his exam. His heart rate did not change based on exam findings as he was not tachycardic at that time. He states that his heart rate was tachycardic when he first presented to the hospital and this was noted on his presenting ECG, where his heart rate was 111 beats per minute. There was evidence of ventricular pacing at that time. REVIEW OF SYSTEMS: As above. Review of systems is otherwise negative/unremarkable. PAST MEDICAL HISTORY: 1. Hypertrophic cardiomyopathy, status post myectomy and mitral valve repair on 01/02/2016 at [facility] [place]. 2. 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 3. Complete heart block, status post dual-chamber ICD. 4. Diastolic CHF. 5. Dyslipidemia. 6. Hypertension. 7. Sleep apnea on CPAP. 8. Noncompliance with recommended followup. 9. Low back pain. 10. BPH. HOME MEDICATIONS: Include metoprolol tartrate 50 mg twice daily, Lasix 100 mg daily, atorvastatin 10 mg daily, aspirin 81 mg daily, spironolactone 25 mg daily, and potassium 20 mEq daily. ALLERGIES: ERYTHROMYCIN. SOCIAL HISTORY: Former smoker. Rare alcohol. No drugs. . He has 2 biologic children, a son and a daughter and also a stepson. Currently, alone in his hospital room. FAMILY HISTORY: No known premature CAD. No known hypertrophic cardiomyopathy or sudden cardiac . PHYSICAL EXAMINATION: VITAL SIGNS: Temperature 36.6 degrees, heart rate 68 beats per minute, respiratory rate 20, blood pressure 115/75 mmHg, and oxygen saturation is 94% on room air. Weight 154.4 kg. GENERAL: No acute distress. He is alert. HEENT: Anicteric sclerae. NECK: Thick. Cannot appreciate JVD. No bruit. Normal carotid upstrokes bilaterally. CARDIAC EXAMINATION: PMI was nonpalpable. There was no ventricular heave. Regular, normal S1 and S2. There were no audible murmurs, rubs or gallops. LUNGS: Clear to auscultation bilaterally without wheezes, rales or rhonchi. ABDOMEN: Soft, nontender, and nondistended. Normoactive bowel sounds. No bruits noted. EXTREMITIES: No cyanosis or pitting edema. 2+ radial pulses bilaterally. 2+ dorsalis pedis pulses bilaterally. PSYCHIATRIC: Affect appears appropriate. ECG personally reviewed as noted above. Echocardiogram images personally reviewed. LV systolic function is now mildly to moderately reduced with an EF of 40%-45% with apical akinesis and global hypokinesis with sparing of the inferolateral wall. Severe asymmetric hypertrophy of the anterior septum consistent with hypertrophic cardiomyopathy. Poor image quality. Telemetry personally reviewed. No arrhythmia. LABORATORY DATA: White blood cell count of 7.13, hemoglobin 15.8, and platelets 196. Sodium 140, potassium 4.3, BUN 29, creatinine 1.39, and magnesium 2.5. Troponin peak was 0.191. Albumin 3.4. INR 1. ASSESSMENT AND PLAN: 1. Chest pain: His chest pain is not typical for ischemic heart disease and occurred with his palpitations. He underwent a cardiac catheterization on 06/30/2015 with no significant coronary artery disease at that time. Chest pain could be related to his hypertrophic cardiomyopathy, especially if he was tachycardic. Please see plan below. 2. Tachycardia/palpitations: Etiology uncertain. ICD interrogation has been requested for Dr. Medrano, who agrees to further evaluate this morning. We will increase his metoprolol to a dose of 100 mg twice daily from 50 mg twice daily, which was his home dose as of earlier this month. We will use metoprolol succinate given his reduced LV systolic function. Await ICD interrogation findings and will defer to electrophysiology if changes need to be made or if any arrhythmias found. 3. Hypertrophic cardiomyopathy: His LV systolic function is now declined. Etiology uncertain. Could be related to hypertrophic cardiomyopathy itself or in the setting of tachycardia given what he describes as symptoms. Awaiting ICD interrogation. We will titrate beta pipe to 100 mg twice daily and change to metoprolol succinate given reduced LV systolic function. He had no coronary artery disease noted 2 years ago and out ischemic heart disease as the cause of his reduced LV systolic function. 4. Elevated troponins: Likely secondary to hypertrophic cardiomyopathy. There was no obstruction noted on a limited echo today and he is status post myectomy. 5. Chronic diastolic congestive heart failure: He appears euvolemic. Continue home dose of diuretic. 6. Complete heart block, status post dual-chamber ICD: As per EP. ICD interrogation today. 7. Disposition: Titrate beta pipe today. Adjustments by Dr. Medrano of electrophysiology if indicated when he interrogate his ICD. The patient's care has been discussed with Dr. Mera of the primary hospitalist service as well as Dr. Medrano of electrophysiology. Thank you for allowing me to participate in the care of Mr. Gummo. If there are any questions or concerns over the weekend, Dr. Bella will be covering from [facility] physician cardiology group. Please do not hesitate to call for any questions or concerns.
[2017-08-02] MEDS: METOPROLOL SUCC 50MG EXT REL TAB PO SCH (21:04)
[2017-08-03] VITALS (7 sets, daily range): BP systolic 104–150; BP diastolic 68–84; PULSE 70–78; TEMP 36.5–36.9; O2SAT 95–97
[2017-08-03] MEDS: HEPARIN SOD 5000 UNIT/0.5 ML CARP SQ SCH ×3 (06:10→21:33)
[2017-08-03] MEDS: MoRPHine SULFATE 2 MG/ML CARP IV PRN ×4 (06:15→21:33)
[2017-08-03 06:38] LABS: BASO % 0.7 %; BASO ABS # 0.04 K/uL (0-0.2); EOS % 5.8 %; EOS ABS # 0.32 K/uL (0-0.5); HEMATOCRIT 45.1 % (42-52); HEMOGLOBIN 15.8 g/dL (14.0-18.0); IG# 0.02 K/uL (0.00-0.02); LYMPH % 26.5 %; LYMPH ABS # 1.46 K/uL (1.2-3.4); MEAN CELL VOLUME 86.4 fL (80-100); MEAN CORPUSCULAR HEMOGLOBIN 30.3 pg (25-34); MEAN PLATELET VOLUME 11.1 fL (7.4-10.4); MONO % 12.9 %; MONO ABS # 0.71 K/uL (0.11-0.59); NEUT % 53.7 %; NEUT ABS # 2.95 K/uL (1.4-6.5); PLATELET COUNT 181 K/uL (130-400); RED CELL DISTRIBUTION WIDTH CV 13.5 % (11.5-14.5); RED CELL DISTRIBUTION WIDTH SD 43.2 fL (36.4-46.3)
[2017-08-03 07:12] LABS: ALBUMIN 3.5 gm/dl (3.4-5.0); CALCIUM 8.9 mg/dl (8.5-10.1); CREATININE 1.21 mg/dl (0.60-1.40); POTASSIUM 4.1 mmol/L (3.5-5.1)
[2017-08-03 07:15] LABS: TOTAL PROTEIN 6.8 gm/dl (6.4-8.2)
[2017-08-03] MEDS: METOPROLOL SUCC 50MG EXT REL TAB PO SCH ×2 (09:04→21:29)
[2017-08-03] MEDS: TAMSULOSIN HCL 0.4 MG CAP PO SCH (09:04)
[2017-08-03] MEDS: ATORVASTATIN 10 MG TAB PO SCH (09:04)
[2017-08-03] MEDS: ASPIRIN 81 MG ECTAB PO SCH (09:04)
[2017-08-03] MEDS: POTASSIUM CHLORIDE 20 MEQ TABCR PO SCH (09:04)
[2017-08-03] MEDS: FUROSEMIDE 40 MG TAB PO SCH (09:04)
[2017-08-03] MEDS: SPIRONOLACTONE 25 MG TAB PO SCH (09:04)
[2017-08-03] MEDS: ONDANSETRON INJ 2 MG/ML 2 ML VIAL IV PRN (13:28)
--- NOTE | 2017-08-03 15:25 | DIAGNOSTIC IMAGING REPORT ---
ULTRASOUND RIGHT UPPER QUADRANT ABDOMEN CLINICAL HISTORY: Epigastric abdominal pain. COMPARISON STUDY: No priors. TECHNIQUE: Real-time, grayscale, and color flow sonography of the right upper quadrant of the abdomen was performed. Images are reviewed in the transverse and longitudinal planes. The examination is degraded by large body habitus. FINDINGS: Liver: The liver is top normal in size and demonstrates heterogeneously increased echotexture consistent with hepatic steatosis. Note that this degrades acoustic penetration of the liver. There is no intrahepatic biliary ductal dilatation. The main portal vein is patent. Gallbladder: The gallbladder is normal in appearance. No gallstones are identified. There is no gallbladder wall thickening or pericholecystic fluid. A sonographic Munoz's sign is reportedly absent. The common bile duct measures up to 0.5 cm in diameter. Pancreas: Not well visualized due to overlying bowel gas. Right kidney: Survey images of the right kidney demonstrate normal size and echotexture. There is no hydronephrosis. Ascites: None. IMPRESSION: 1. No acute sonographic abnormality is identified. No gallstones are seen. 2. Hepatic steatosis. 3. The pancreas was not well visualized. Electronically signed by: Nicholas Vasquez M.D. 08/03/2017 3:24 PM Dictated Date/Time: 08/03/2017 3:23 PM
--- NOTE | 2017-08-03 16:24 | Family Medicine Progress Note ---
Progress Note Date of Service Aug 03, 2017. Subjective Pt evaluation today including: conversation w/ patient, physical exam, chart review, lab review Pain: some epigastric discomfort PO Intake: tolerating Voiding: no voiding problems This AM reports improvement in chest discomfort (feeling of air being struck). Pain between shoulder blades and palpitations also improved. However despite some improvement continues to be dizzy/shaky telemetry: sinus 60s-70s Constitutional: No fever Respiratory: No shortness of breath Cardiovascular: + chest pain Abdomen: No pain, No nausea, No vomiting Musculoskeletal: + problem reported (pain between shoulder blades) Male : No dysuria Neurologic: + problem reported (dizziness/shakiness) Medications Current Inpatient Medications Medications (Trade) Dose Ordered Sig/Ida Route Start Time Stop Time Status Last Admin Dose Admin Ioversol (Optiray 320) 100 ml UD PRN IV 08/01/17 17:30 08/05/17 17:29 Heparin Sodium (Porcine) (Heparin Sq 5000 Unit/0.5ml) 5,000 unit Q8H SQ 08/01/17 22:00 08/31/17 21:59 08/03/17 13:30 5,000 UNIT Acetaminophen (Tylenol Tab) 650 mg Q4H PRN PO 08/01/17 20:00 08/31/17 19:59 Al Hydrox/Mg Hydrox/Simethicone (Maalox Max Susp) 15 ml Q4H PRN PO 08/01/17 20:00 08/31/17 19:59 Magnesium Hydroxide (Milk Of Magnesia Susp) 30 ml Q12H PRN PO 08/01/17 20:00 08/31/17 19:59 Zolpidem Tartrate (Ambien Tab) 5 mg HSZ PRN PO 08/01/17 20:00 08/31/17 19:59 Ondansetron HCl (Zofran Inj) 4 mg Q6H PRN IV 08/01/17 20:00 08/31/17 19:59 08/03/17 13:28 4 MG Polyethylene (Miralax Powder Packet) 17 gm DAILY PRN PO 08/01/17 20:00 08/31/17 19:59 Aspirin (Ecotrin Tab) 81 mg DAILY PO 08/02/17 09:00 09/01/17 08:59 08/03/17 09:04 81 MG Atorvastatin Calcium (Lipitor Tab) 10 mg DAILY PO 08/02/17 09:00 09/01/17 08:59 08/03/17 09:04 10 MG Furosemide (Lasix Tab) 100 mg DAILY PO 08/02/17 09:00 09/01/17 08:59 08/03/17 09:04 100 MG Potassium Chloride (Klor-Con Tab) 20 meq DAILY PO 08/02/17 09:00 09/01/17 08:59 08/03/17 09:04 20 MEQ Spironolactone (Aldactone Tab) 25 mg DAILY PO 08/02/17 09:00 09/01/17 08:59 08/03/17 09:04 25 MG Tamsulosin HCl (Flomax Cap) 0.4 mg DAILY PO 08/02/17 09:00 09/01/17 08:59 08/03/17 09:04 0.4 MG Miscellaneous Information (Order Awaiting Action) 1 ea QS N/A 08/02/17 00:00 09/01/17 00:00 Miscellaneous (Iv Fluids Completed) 1 ea PRN PRN N/A 08/01/17 20:30 08/01/18 20:29 08/02/17 20:45 1 EA Morphine Sulfate (MoRPHine SULFATE INJ) 2 mg Q2H PRN IV 08/01/17 22:45 08/15/17 22:44 08/03/17 15:41 2 MG Metoprolol Succinate (Toprol Xl Tab) 100 mg BID PO 08/02/17 21:00 09/01/17 20:59 08/03/17 09:04 100 MG Objective Vital Signs Date Time Temp Pulse Resp B/P (MAP) Pulse Ox O2 Delivery O2 Flow Rate FiO2 08/03/17 16:00 Room Air 08/03/17 15:30 36.6 74 18 122/76 (91) 96 Room Air 08/03/17 12:00 Room Air 08/03/17 11:24 36.7 71 20 122/79 (93) 96 Room Air 08/03/17 11:17 78 20 139/84 (102) 97 Room Air 08/03/17 08:00 Room Air 08/03/17 07:32 36.5 73 22 132/82 (99) 96 Room Air 73 08/03/17 04:00 CPAP 08/03/17 03:33 36.6 70 20 104/68 (80) 95 CPAP 08/03/17 00:00 CPAP 08/02/17 23:33 36.3 78 20 114/77 (89) 94 CPAP 08/02/17 23:17 77 94 08/02/17 20:00 Room Air 08/02/17 19:38 36.7 91 18 125/76 (92) 95 Room Air Laboratory Results 08/03/17 06:13 Red Blood Count 5.22, Mean Corpuscular Volume 86.4, Mean Corpuscular Hemoglobin 30.3, Mean Corpuscular Hemoglobin Concent 35.0, Mean Platelet Volume 11.1, Neutrophils (%) (Auto) 53.7, Lymphocytes (%) (Auto) 26.5, Monocytes (%) (Auto) 12.9, Eosinophils (%) (Auto) 5.8, Basophils (%) (Auto) 0.7, Neutrophils # (Auto ) 2.95, Lymphocytes # (Auto) 1.46, Monocytes # (Auto) 0.71, Eosinophils # (Auto ) 0.32, Basophils # (Auto) 0.04 08/03/17 06:13 Test 08/03/17 06:13 White Blood Count 5.50 K/uL (4.8-10.8) Red Blood Count 5.22 M/uL (4.7-6.1) Hemoglobin 15.8 g/dL (14.0-18.0) Hematocrit 45.1 % (42-52) Mean Corpuscular Volume 86.4 fL (80-100) Mean Corpuscular Hemoglobin 30.3 pg (25-34) Mean Corpuscular Hemoglobin Concent 35.0 g/dl (32-36) Platelet Count 181 K/uL (130-400) Mean Platelet Volume 11.1 fL (7.4-10.4) Neutrophils (%) (Auto) 53.7 % Lymphocytes (%) (Auto) 26.5 % Monocytes (%) (Auto) 12.9 % Eosinophils (%) (Auto) 5.8 % Basophils (%) (Auto) 0.7 % Neutrophils # (Auto) 2.95 K/uL (1.4-6.5) Lymphocytes # (Auto) 1.46 K/uL (1.2-3.4) Monocytes # (Auto) 0.71 K/uL (0.11-0.59) Eosinophils # (Auto) 0.32 K/uL (0-0.5) Basophils # (Auto) 0.04 K/uL (0-0.2) RDW Standard Deviation 43.2 fL (36.4-46.3) RDW Coefficient of Variation 13.5 % (11.5-14.5) Immature Granulocyte % (Auto) 0.4 % Immature Granulocyte # (Auto) 0.02 K/uL (0.00-0.02) Anion Gap 6.0 mmol/L (3-11) Est Creatinine Clear Calc Drug Dose 121.5 ml/min Estimated GFR () 83.3 Estimated GFR (Non- 71.9 BUN/Creatinine Ratio 19.7 (10-20) Calcium Level 8.9 mg/dl (8.5-10.1) Total Bilirubin 1.0 mg/dl (0.2-1) Aspartate Amino Transf (AST/SGOT) 28 U/L (15-37) Alanine Aminotransferase (ALT/SGPT) 43 U/L (12-78) Alkaline Phosphatase 75 U/L (45-117) Total Protein 6.8 gm/dl (6.4-8.2) Albumin 3.5 gm/dl (3.4-5.0) Globulin 3.3 gm/dl (2.5-4.0) Albumin/Globulin Ratio 1.1 (0.9-2) Assessment and Plan 46 yoM admitted for chest discomfort (sensation of air being stuck in chest), palpitations, pain between shoulder blades and dizziness PMH: Hypertrophic cardiomyopathy s/p myectomy and MV repair on 02Jan2016 at [facility] [place] , dual-chamber ICD implantation on 02May2017, complete heart block s/p dual- chamber ICD, diastolic CHF, HTN, HLD, sleep apnea on CPAP, low back pain, BPH, closed fracture of cervical spine, s/p appendectomy. Chest pain / palpitations: Reproduced during walk trial this PM (exertional in nature). Report of postprandial chest/epigastric pain today. Gallbladder US ordered and normal. - EKG ventricularly-paced rhythm - ECHO: decreased EF of 40-45% - hypertrophic cardiomyopathy - Cardiology onboard (see their note) - pacemaker interrogated - increased BB to 100mg of Metoprolol succinate (Toprol XL) 100mg BID Chronic diastolic CHF: - Continue lasix 100 mg PO daily Complete heart block: S/p dual-chamber ICD. Interrogated BPH: - Continue Flomax HTN and HLD: - Continue Metoprolol succinate 100mg BID - Continue Lipitor 10 mg and Aldactone 25 mg Low back pain: Lumbar spine MRI 2018 - annular fissure with disc bulge and mild facet arthropathy at L5-S1 without spinal stenosis - Continue Tylenol prn. Pulmonary nodules: Noted CT - PCP follow-up Hepatic steatosis: Noted on CT and gallbladder US today - PCP f/u Code status: Full code Diet: Heart healthy, low sodium (2 gm) DVT prophy: Heparin TID PT/OT: Deferred Disbo: Admit for observation on telemetry. Lives at home alone. Resident Physician Supervision Note: I was present with Dr. Rangel during the history and exam. I discussed the case with the resident and agree with the findings and plan as documented in the note. Documented By: Dallas Espinosa Resident Involvement: Resident Care Provided Care Provided: Adult Hospital Medicine
[2017-08-04] MEDS: MoRPHine SULFATE 2 MG/ML CARP IV PRN ×5 (03:28→22:49)
[2017-08-04 03:45] VITALS: BP 109/68; PULSE 70; TEMP 36.5; O2SAT 93
[2017-08-04] MEDS: HEPARIN SOD 5000 UNIT/0.5 ML CARP SQ SCH ×3 (05:59→21:07)
[2017-08-04 07:15] LABS: CALCIUM 9.2 mg/dl (8.5-10.1); CREATININE 1.31 mg/dl (0.60-1.40); POTASSIUM 4.3 mmol/L (3.5-5.1)
[2017-08-04 07:22] VITALS: BP 114/77; PULSE 66; TEMP 36.6; O2SAT 96
[2017-08-04] MEDS: FUROSEMIDE 40 MG TAB PO SCH (08:29)
[2017-08-04] MEDS: ASPIRIN 81 MG ECTAB PO SCH (08:29)
[2017-08-04] MEDS: TAMSULOSIN HCL 0.4 MG CAP PO SCH (08:30)
[2017-08-04] MEDS: POTASSIUM CHLORIDE 20 MEQ TABCR PO SCH (08:30)
[2017-08-04] MEDS: ATORVASTATIN 10 MG TAB PO SCH (08:31)
[2017-08-04] MEDS: SPIRONOLACTONE 25 MG TAB PO SCH (08:31)
[2017-08-04] MEDS: METOPROLOL SUCC 50MG EXT REL TAB PO SCH ×2 (08:31→21:04)
[2017-08-04 10:58] VITALS: BP 129/67; PULSE 69; TEMP 36.8; O2SAT 96
--- NOTE | 2017-08-04 13:00 | Family Medicine Progress Note ---
Progress Note Date of Service Aug 04, 2017. Subjective Pt evaluation today including: conversation w/ patient, physical exam, chart review, lab review Pain: persistent chest discomfort PO Intake: tolerating Voiding: no voiding problems Yesterday: during walk around unit reports return of chest discomfort ( sensation of stuck air bubble), palpitations and diaphoresis. [place] dizzy after the retuned. Had to stop multiple times during the walk. Of note: HR increased to 120s on telemetry. This AM reports persistent chest discomfort, pain between shoulders. Constitutional: No fever, No chills Respiratory: No shortness of breath Cardiovascular: + chest pain Abdomen: No pain, No nausea, No vomiting Musculoskeletal: + problem reported (pain between shoulder blades) Male : No dysuria Medications Current Inpatient Medications Medications (Trade) Dose Ordered Sig/Ida Route Start Time Stop Time Status Last Admin Dose Admin Ioversol (Optiray 320) 100 ml UD PRN IV 08/01/17 17:30 08/05/17 17:29 Heparin Sodium (Porcine) (Heparin Sq 5000 Unit/0.5ml) 5,000 unit Q8H SQ 08/01/17 22:00 08/31/17 21:59 08/04/17 05:59 5,000 UNIT Acetaminophen (Tylenol Tab) 650 mg Q4H PRN PO 08/01/17 20:00 08/31/17 19:59 Al Hydrox/Mg Hydrox/Simethicone (Maalox Max Susp) 15 ml Q4H PRN PO 08/01/17 20:00 08/31/17 19:59 Magnesium Hydroxide (Milk Of Magnesia Susp) 30 ml Q12H PRN PO 08/01/17 20:00 08/31/17 19:59 Zolpidem Tartrate (Ambien Tab) 5 mg HSZ PRN PO 08/01/17 20:00 08/31/17 19:59 Ondansetron HCl (Zofran Inj) 4 mg Q6H PRN IV 08/01/17 20:00 08/31/17 19:59 08/03/17 13:28 4 MG Polyethylene (Miralax Powder Packet) 17 gm DAILY PRN PO 08/01/17 20:00 08/31/17 19:59 Aspirin (Ecotrin Tab) 81 mg DAILY PO 08/02/17 09:00 09/01/17 08:59 4/1/18 08:29 81 MG Atorvastatin Calcium (Lipitor Tab) 10 mg DAILY PO 08/02/17 09:00 09/01/17 08:59 08/04/17 08:31 10 MG Furosemide (Lasix Tab) 100 mg DAILY PO 08/02/17 09:00 09/01/17 08:59 08/04/17 08:29 100 MG Potassium Chloride (Klor-Con Tab) 20 meq DAILY PO 08/02/17 09:00 09/01/17 08:59 08/04/17 08:30 20 MEQ Spironolactone (Aldactone Tab) 25 mg DAILY PO 08/02/17 09:00 09/01/17 08:59 08/04/17 08:31 25 MG Tamsulosin HCl (Flomax Cap) 0.4 mg DAILY PO 08/02/17 09:00 09/01/17 08:59 08/04/17 08:30 0.4 MG Miscellaneous Information (Order Awaiting Action) 1 ea QS N/A 08/02/17 00:00 09/01/17 00:00 Miscellaneous (Iv Fluids Completed) 1 ea PRN PRN N/A 08/01/17 20:30 08/01/18 20:29 08/02/17 20:45 1 EA Morphine Sulfate (MoRPHine SULFATE INJ) 2 mg Q2H PRN IV 08/01/17 22:45 08/15/17 22:44 08/04/17 08:48 2 MG Metoprolol Succinate (Toprol Xl Tab) 100 mg BID PO 08/02/17 21:00 09/01/17 20:59 08/04/17 08:31 100 MG Objective Vital Signs Date Time Temp Pulse Resp B/P (MAP) Pulse Ox O2 Delivery O2 Flow Rate FiO2 08/04/17 07:22 36.6 66 20 114/77 (89) 96 Room Air 0.0 08/04/17 04:00 CPAP 08/04/17 03:45 36.5 70 18 109/68 (82) 93 CPAP 08/04/17 00:00 CPAP 08/03/17 23:53 36.9 77 18 150/84 (106) 95 Room Air 08/03/17 20:00 Room Air 08/03/17 19:33 36.8 75 18 130/82 (98) 96 Room Air 08/03/17 16:00 Room Air 08/03/17 15:30 36.6 74 18 122/76 (91) 96 Room Air Physical Exam General Appearance: no apparent distress Eyes: normal inspection Neck: supple Respiratory/Chest: lungs clear, normal breath sounds Cardiovascular: regular rate, rhythm Abdomen: normal bowel sounds, non tender, soft Extremities: non-tender, no pedal edema Neurologic/Psychiatric: alert, oriented x 3 Skin: warm/dry Laboratory Results 08/04/17 06:20 Test 08/04/17 06:20 Anion Gap 6.0 mmol/L (3-11) Est Creatinine Clear Calc Drug Dose 111.7 ml/min Estimated GFR () 75.7 Estimated GFR (Non- 65.3 BUN/Creatinine Ratio 19.6 (10-20) Calcium Level 9.2 mg/dl (8.5-10.1) Assessment and Plan 46 yoM remains admitted for persistent chest discomfort (sensation of air being stuck in chest), palpitations, pain between shoulder blades and dizziness worse with exertion. PMH: Hypertrophic cardiomyopathy s/p myectomy and MV repair on 02Jan2016 at [facility] [place] , dual-chamber ICD implantation on 02May2017, complete heart block s/p dual- chamber ICD, diastolic CHF, HTN, HLD, sleep apnea on CPAP, low back pain, BPH, closed fracture of cervical spine, s/p appendectomy. Chest pain / palpitations: Reproduced during walk trial yesterday (exertional in nature). Unknown etiology - ECHO: decreased EF of 40-45% - hypertrophic cardiomyopathy - Gallbladder US normal - Cardiology onboard (see their note) - pacemaker interrogation pending - increased BB to 100mg of Metoprolol succinate (Toprol XL) 100mg BID Chronic diastolic CHF: - Continue lasix 100 mg PO daily Complete heart block: S/p dual-chamber ICD. Interrogation pending. BPH: - Continue Flomax HTN and HLD: - Continue Metoprolol succinate 100mg BID - Continue Lipitor 10 mg and Aldactone 25 mg Low back pain: Lumbar spine MRI 2018 - annular fissure with disc bulge and mild facet arthropathy at L5-S1 without spinal stenosis - Continue Tylenol prn. Pulmonary nodules: Noted on CT - PCP follow-up Hepatic steatosis: Noted on CT and gallbladder US today - PCP f/u Code status: Full code Diet: Heart healthy, low sodium (2 gm) DVT prophy: Heparin TID PT/OT: deferred Disbo: On telemetry. Lives at home alone. Resident Physician Supervision Note: I was present with Dr. Rangel during the history and exam. I discussed the case with the resident and agree with the findings and plan as documented in the note. Any exceptions or clarifications are listed here: At rest, the patient is without symptoms. However, with minimal ambulation, he describes a lower epigastric sensation of fullness, palpitations, and sweating. Per telemetry, appeared to have rate of around 120 during this episode. Given continued symptoms, will monitor today and discuss with his primary credit products officer in the morning. Documented By: Dallas Espinosa Resident Involvement: Resident Care Provided Care Provided: Adult Hospital Medicine
[2017-08-04 15:55] VITALS: BP 122/76; PULSE 74; TEMP 37; O2SAT 96
[2017-08-04 19:52] VITALS: BP 124/73; PULSE 75; TEMP 36.8; O2SAT 94
[2017-08-04 22:57] VITALS: BP 127/82; PULSE 79; TEMP 36.4; O2SAT 92
[2017-08-05] VITALS (13 sets, daily range): BP systolic 95–135; BP diastolic 62–83; PULSE 63–80; TEMP 36.3–37; O2SAT 91–97
[2017-08-05] MEDS: MoRPHine SULFATE 2 MG/ML CARP IV PRN ×5 (03:04→20:44)
[2017-08-05] MEDS: HEPARIN SOD 5000 UNIT/0.5 ML CARP SQ SCH ×3 (05:43→20:54)
[2017-08-05 05:57] LABS: BASO % 0.9 %; BASO ABS # 0.05 K/uL (0-0.2); EOS % 5.4 %; EOS ABS # 0.29 K/uL (0-0.5); HEMATOCRIT 42.7 % (42-52); HEMOGLOBIN 15.3 g/dL (14.0-18.0); IG# 0.03 K/uL (0.00-0.02); LYMPH % 29.5 %; LYMPH ABS # 1.58 K/uL (1.2-3.4); MEAN CELL VOLUME 86.4 fL (80-100); MEAN CORPUSCULAR HGB CONC 35.8 g/dl (32-36); MEAN PLATELET VOLUME 10.8 fL (7.4-10.4); MONO % 14.2 %; MONO ABS # 0.76 K/uL (0.11-0.59); NEUT % 49.4 %; NEUT ABS # 2.65 K/uL (1.4-6.5); PLATELET COUNT 168 K/uL (130-400); RED CELL DISTRIBUTION WIDTH CV 13.2 % (11.5-14.5); WHITE BLOOD COUNT 5.36 K/uL (4.8-10.8)
[2017-08-05 06:26] LABS: ALBUMIN 3.4 gm/dl (3.4-5.0); CALCIUM 8.8 mg/dl (8.5-10.1); CREATININE 1.29 mg/dl (0.60-1.40); POTASSIUM 3.7 mmol/L (3.5-5.1)
[2017-08-05 06:29] LABS: TOTAL PROTEIN 6.8 gm/dl (6.4-8.2)
--- NOTE | 2017-08-05 08:53 | Family Medicine Progress Note ---
Progress Note Date of Service Aug 05, 2017. Subjective Pt evaluation today including: conversation w/ patient, conversation w/ field technical support consultant Found patient this morning resting comfortably in the bed. Says that he had a couple episodes of the "air in my chest" over the weekend, mostly with any level of exertion (e.g. walking down the [place]) but at the moment, staying very still, he feels mostly asymptomatic. Presently denies any CP, SOB, or other acute medical concerns. Constitutional: No fever, No chills Respiratory: + shortness of breath, + dyspnea on exertion, No cough Cardiovascular: + chest pain (with exertion), No edema Abdomen: No pain, No nausea, No vomiting, No diarrhea Medications Current Inpatient Medications Medications (Trade) Dose Ordered Sig/Ida Route Start Time Stop Time Status Last Admin Dose Admin Ioversol (Optiray 320) 100 ml UD PRN IV 08/01/17 17:30 08/05/17 17:29 Heparin Sodium (Porcine) (Heparin Sq 5000 Unit/0.5ml) 5,000 unit Q8H SQ 08/01/17 22:00 08/31/17 21:59 08/05/17 05:43 5,000 UNIT Acetaminophen (Tylenol Tab) 650 mg Q4H PRN PO 08/01/17 20:00 08/31/17 19:59 Al Hydrox/Mg Hydrox/Simethicone (Maalox Max Susp) 15 ml Q4H PRN PO 08/01/17 20:00 08/31/17 19:59 Magnesium Hydroxide (Milk Of Magnesia Susp) 30 ml Q12H PRN PO 08/01/17 20:00 08/31/17 19:59 Zolpidem Tartrate (Ambien Tab) 5 mg HSZ PRN PO 08/01/17 20:00 08/31/17 19:59 Ondansetron HCl (Zofran Inj) 4 mg Q6H PRN IV 08/01/17 20:00 08/31/17 19:59 08/03/17 13:28 4 MG Polyethylene (Miralax Powder Packet) 17 gm DAILY PRN PO 08/01/17 20:00 08/31/17 19:59 Aspirin (Ecotrin Tab) 81 mg DAILY PO 08/02/17 09:00 09/01/17 08:59 08/04/17 08:29 81 MG Atorvastatin Calcium (Lipitor Tab) 10 mg DAILY PO 08/02/17 09:00 09/01/17 08:59 08/04/17 08:31 10 MG Furosemide (Lasix Tab) 100 mg DAILY PO 08/02/17 09:00 09/01/17 08:59 08/04/17 08:29 100 MG Potassium Chloride (Klor-Con Tab) 20 meq DAILY PO 08/02/17 09:00 09/01/17 08:59 08/04/17 08:30 20 MEQ Spironolactone (Aldactone Tab) 25 mg DAILY PO 08/02/17 09:00 09/01/17 08:59 08/04/17 08:31 25 MG Tamsulosin HCl (Flomax Cap) 0.4 mg DAILY PO 08/02/17 09:00 09/01/17 08:59 08/04/17 08:30 0.4 MG Miscellaneous Information (Order Awaiting Action) 1 ea QS N/A 08/02/17 00:00 09/01/17 00:00 Miscellaneous (Iv Fluids Completed) 1 ea PRN PRN N/A 08/01/17 20:30 08/01/18 20:29 08/02/17 20:45 1 EA Morphine Sulfate (MoRPHine SULFATE INJ) 2 mg Q2H PRN IV 08/01/17 22:45 08/15/17 22:44 08/05/17 03:04 2 MG Metoprolol Succinate (Toprol Xl Tab) 100 mg BID PO 08/02/17 21:00 09/01/17 20:59 08/04/17 21:04 100 MG Objective Vital Signs Date Time Temp Pulse Resp B/P (MAP) Pulse Ox O2 Delivery O2 Flow Rate FiO2 08/05/17 07:39 36.4 63 18 111/75 (87) 97 Room Air 08/05/17 04:00 Room Air 08/05/17 03:18 36.3 66 20 110/67 (81) 96 Room Air 08/05/17 00:00 Room Air 08/04/17 22:57 36.4 79 18 127/82 (97) 92 Room Air 08/04/17 20:00 Room Air 08/04/17 19:52 36.8 75 18 124/73 (90) 94 Room Air 08/04/17 16:00 Room Air 08/04/17 15:55 37.0 74 18 122/76 (91) 96 Room Air 08/04/17 12:00 Room Air 08/04/17 10:58 36.8 69 20 129/67 (87) 96 Room Air Physical Exam Notes: General Appearance: Awake, alert & oriented, speaking easily, appears comfortable in general when lying still in bed, NAD. CV: +S1S2 RRR, no murmur. Left upper chest ICD in place. Midline sternotomy scar. Pulm: Clear to auscultation throughout. Abdomen: +BS, soft, non-tender, non-distended. Extremities: No pedal edema or calf tenderness. Moving all extremities naturally and easily. Neuro: No gross neuro deficits. Lines: PIV. Laboratory Results 08/05/17 05:15 Red Blood Count 4.94, Mean Corpuscular Volume 86.4, Mean Corpuscular Hemoglobin 31.0, Mean Corpuscular Hemoglobin Concent 35.8, Mean Platelet Volume 10.8, Neutrophils (%) (Auto) 49.4, Lymphocytes (%) (Auto) 29.5, Monocytes (%) (Auto) 14.2, Eosinophils (%) (Auto) 5.4, Basophils (%) (Auto) 0.9, Neutrophils # (Auto ) 2.65, Lymphocytes # (Auto) 1.58, Monocytes # (Auto) 0.76, Eosinophils # (Auto ) 0.29, Basophils # (Auto) 0.05 08/05/17 05:15 Test 08/05/17 05:15 White Blood Count 5.36 K/uL (4.8-10.8) Red Blood Count 4.94 M/uL (4.7-6.1) Hemoglobin 15.3 g/dL (14.0-18.0) Hematocrit 42.7 % (42-52) Mean Corpuscular Volume 86.4 fL (80-100) Mean Corpuscular Hemoglobin 31.0 pg (25-34) Mean Corpuscular Hemoglobin Concent 35.8 g/dl (32-36) Platelet Count 168 K/uL (130-400) Mean Platelet Volume 10.8 fL (7.4-10.4) Neutrophils (%) (Auto) 49.4 % Lymphocytes (%) (Auto) 29.5 % Monocytes (%) (Auto) 14.2 % Eosinophils (%) (Auto) 5.4 % Basophils (%) (Auto) 0.9 % Neutrophils # (Auto) 2.65 K/uL (1.4-6.5) Lymphocytes # (Auto) 1.58 K/uL (1.2-3.4) Monocytes # (Auto) 0.76 K/uL (0.11-0.59) Eosinophils # (Auto) 0.29 K/uL (0-0.5) Basophils # (Auto) 0.05 K/uL (0-0.2) RDW Standard Deviation 42.0 fL (36.4-46.3) RDW Coefficient of Variation 13.2 % (11.5-14.5) Immature Granulocyte % (Auto) 0.6 % Immature Granulocyte # (Auto) 0.03 K/uL (0.00-0.02) Anion Gap 5.0 mmol/L (3-11) Est Creatinine Clear Calc Drug Dose 113.0 ml/min Estimated GFR () 77.1 Estimated GFR (Non- 66.5 BUN/Creatinine Ratio 19.0 (10-20) Calcium Level 8.8 mg/dl (8.5-10.1) Total Bilirubin 0.6 mg/dl (0.2-1) Aspartate Amino Transf (AST/SGOT) 22 U/L (15-37) Alanine Aminotransferase (ALT/SGPT) 38 U/L (12-78) Alkaline Phosphatase 79 U/L (45-117) Total Protein 6.8 gm/dl (6.4-8.2) Albumin 3.4 gm/dl (3.4-5.0) Globulin 3.4 gm/dl (2.5-4.0) Albumin/Globulin Ratio 1.0 (0.9-2) Assessment and Plan 46 yo male admitted on 01Aug2017 for chest pain. PMH: Hypertrophic cardiomyopathy s/p myectomy and MV repair on 02Jan2016 at [facility] [place] , dual-chamber ICD implantation on 02May2017, complete heart block s/p dual- chamber ICD, diastolic CHF, HTN, HLD, sleep apnea on CPAP, low back pain, BPH, closed fracture of cervical spine, s/p appendectomy. Chest pain / palpitations: Occurs with exertion, virtually resolved with rest. EKG is a ventricularly-paced rhythm. Minimal TnI elevation, noted serially, is near his baseline and may be due to the HCM. Last cath 30Jun2015 was without significant CAD. From a pulm standpoint, no noted fevers, SOB, has clear lungs on exam, and both CXR + CTA chest did not note any acute pulmonary findings. Current chest symptoms may be due to his HCM. - Cardiology onboard, discussed case with them this morning. They wish to pursue a cardiac cath and possibly replace his pacemaker tomorrow. Please see their notes for full details. Hypertrophic cardiomyopathy (HCM): cardiac echo noted EF 40-45% with some near-global hypokinesis (but poor image quality). Cardiology changed to metoprolol succinate (Toprol XL) with increased dose of 100 mg BID. Chronic diastolic CHF: On home lasix 100 mg daily. No current SOB or peripheral edema to suggest volume overload. Complete heart block: S/p dual-chamber ICD. Interrogation per EP and possible replacement as discussed above. BPH: History of same. On home flomax. HTN and HLD: History of same. See above BB dosing. On home lipitor 10 mg and Aldactone 25 mg. Low back pain: Lumbar spine MRI on 26Jul2017 showed annular fissure with disc bulge and mild facet arthropathy at L5-S1 without spinal stenosis. Tylenol prn for pain here. Pulmonary nodules: Noted on CTA chest. Needs related PCM follow-up at time of discharge. Hepatic steatosis: Noted on 29Jul CTA chest. 31Jul gallbladder u/s was unremarkable with exception of the same. The steatosis needs related PCM follow -up at time of discharge. Code status: Full code. Diet: Heart healthy, low sodium (2 gm). DVT prophy: Heparin TID. PT/OT: Deferred. Disbo: Admit for observation on telemetry. Lives at home alone. Resident Physician Supervision Note: I interviewed and examined the patient. Discussed with Dr. Mera and agree with findings and plan as documented in the note. Any exceptions or clarifications are listed here: None Documented By: Clarke Ritter feeling ok post cath no new complaints vitals noted nad breathing unlabored no pallor or icterus chest pain - cardiomyopathy related most likley - fortunately no CAD stable, continue as above and as per cardiology Resident Tracking Resident Involvement: Resident Care Provided Care Provided: Adult [facility] Medicine (inpatient)
[2017-08-05] MEDS: FUROSEMIDE 40 MG TAB PO SCH (09:14)
[2017-08-05] MEDS: ASPIRIN 81 MG ECTAB PO SCH (09:14)
[2017-08-05] MEDS: TAMSULOSIN HCL 0.4 MG CAP PO SCH (09:15)
[2017-08-05] MEDS: POTASSIUM CHLORIDE 20 MEQ TABCR PO SCH (09:15)
[2017-08-05] MEDS: METOPROLOL SUCC 50MG EXT REL TAB PO SCH ×2 (09:16→20:48)
[2017-08-05] MEDS: SPIRONOLACTONE 25 MG TAB PO SCH (09:16)
[2017-08-05] MEDS: ATORVASTATIN 10 MG TAB PO SCH (09:16)
--- NOTE | 2017-08-05 13:17 | CARDIOLOGY PROGRESS NOTE ---
DATE: 08/05/2017 TIME: 12:49. SUBJECTIVE: Mr. Connolly was seen earlier today at approximately 8:25 a.m. He continues to have palpitations when walking in the hallway, but has not done so since Saturday, 2 days ago. He also had diaphoresis and this similar feeling in his epigastric/lower chest area that he had upon presentation. He first stated that his symptoms have not improved but then admitted he is able to move around in his room now without such symptoms. He denies syncope, near syncope or edema. OBJECTIVE: VITAL SIGNS: Temperature 36.7 degrees, heart rate 64 beats per minute, respiration rate 19, blood pressure 116/77 mmHg, oxygen saturation 92% on room air. I's and O's negative 664 mL and weight is 149.4 kg. GENERAL: In no acute distress. He is alert. NECK: Thick. CARDIAC: No ventricular heave. Regular, normal S1, S2. There were no audible murmurs, rubs or gallops. LUNGS: Clear. ABDOMEN: Soft, nontender, nondistended. Normoactive bowel sounds. EXTREMITIES: No cyanosis or significant pitting edema. PSYCHIATRIC: Affect appears appropriate. MEDICATIONS: Include aspirin 81 mg daily, atorvastatin 10 mg daily, Lasix 100 mg daily, heparin 5,000 units subQ q. 8 hours, metoprolol succinate 100 mg b.i.d., potassium chloride 20 mEq daily, spironolactone 25 mg daily. Telemetry personally reviewed. No arrhythmia. His heart rate trend has significantly improved while on higher dose beta pipe. LABORATORY DATA: White blood cell count 5.36, hemoglobin 15.3, platelets 168. Sodium 138, potassium 3.7, BUN 24, and creatinine 1.29. AST 22, ALT 38, albumin 3.4. IMAGING DATA: Echocardiogram 08/02/2017: Normal LV size with mildly to moderately reduced systolic function. EF 40-45%. Apical akinesis. Global hypokinesis with sparing of the inferolateral wall. Severe asymmetric hypertrophy of the anterior septum. Chart reviewed. ASSESSMENT AND PLAN: 1. Tachycardia/palpitations: He has not been tachycardic when reviewing telemetry for the past 24 hours, but still feels palpitations with exertion when walking in the hallway and states that his symptoms are very uncomfortable and he is unable to tolerate normal living conditions with current symptoms. He is tolerating higher dose beta pipe and would continue so at this point. It is unclear on the etiology of his current symptoms. 2. Chest pain: He had lower chest discomfort and epigastric pain. He did not have any significant coronary artery disease when undergoing coronary angiography on 06/30/2017. Given his reduced left ventricular systolic function, can repeat coronary angiography; however, it is unlikely that he has developed severe coronary artery disease in just 2 years' time, but given his change in symptoms, reduction in left ventricular systolic function, and minimal troponin elevation, risks and benefits of the procedure were discussed with him and he is agreeable to undergo coronary angiography to definitively evaluate further. Given his severity of symptoms with minimal exertion, stress testing has not been performed. 3. Hypertrophic cardiomyopathy: This is likely the etiology of his elevated troponins. There was no obvious gradient; however, limited images were performed. This can be further evaluated during coronary angiography with the addition of a left heart catheterization. He has an implantable cardioverter defibrillator in place. This could also be the etiology of his reduction in left ventricular systolic function, but other possible etiologies also remain. 4. Reduced left ventricular systolic function: Could be secondary to hypertrophic cardiomyopathy itself and less likely ischemic heart disease as mentioned above. He also is pacing in the right ventricle and is a very wide QRS on his most recent electrocardiogram. This could be pacemaker induced. Would consider upgrade to biventricular device to see if that can improve not only has symptoms which are quite disturbing for him but also his left ventricular systolic function. This was discussed with Dr. Medrano of electrophysiology who agrees. He will meet with Mr. Connolly tomorrow, to provide for further cardiology care tomorrow after cardiac catheterization is performed today. 5. Chronic diastolic congestive heart failure: He appears euvolemic. Can continue home dose of diuretic. 6. Complete heart block status post dual-chamber implantable cardioverter defibrillator: As per Dr. Medrano of electrophysiology who interrogated his device last week and reports that it is working appropriately without arrhythmia noted. 7. Disposition: Cardiology will continue to follow. Dr. Durán will likely complete cardiac catheterization later today. The patient's care has been discussed with him. The patient's care was also discussed with Dr. Mera of the primary hospitalist service. Mr. Connolly's care has also been discussed in detail with Dr. Medrano who is considering biventricular upgrade of his implantable cardioverter defibrillator tomorrow. Dr. Medrano will continue his cardiology care tomorrow while I am away from the hospital. Highly complex medical issues.
[2017-08-05] MEDS ORDERED: MIDAZOLAM HCL 1 MG/ML 2ML VIAL ONE (14:36)
[2017-08-05] MEDS ORDERED: FENTANYL CITRATE INJ 50 MCG/1 ML 2 ML VIAL ONE (14:36)
[2017-08-05] MEDS ORDERED: HEPARIN SOD (PORCINE) 1000 UNIT/ML 10 ML VIAL ONE (14:36)
[2017-08-05] MEDS ORDERED: NiCARDipine HCL INJ 2.5 MG/ML 10 ML AMP ONE (14:36)
[2017-08-05] MEDS ORDERED: NITROGLYCERIN/D5W 100MCG/ML 20ML SYR ONE (14:37)
[2017-08-05] MEDS ORDERED: LIDOCAINE HCL 1% 20 ML VIAL ONE (14:40)
--- NOTE | 2017-08-05 15:22 | Post Sedation Assessment ---
Post Sedation Assessment General Date of Sedation Aug 05, 2017. Vital Signs: Vital Signs Past 12 Hours Date Time Temp Pulse Resp B/P (MAP) Pulse Ox O2 Delivery O2 Flow Rate FiO2 08/05/17 12:00 Room Air 08/05/17 11:32 36.7 64 19 116/77 (90) 92 Room Air 08/05/17 08:30 Room Air 08/05/17 07:39 36.4 63 18 111/75 (87) 97 Room Air 08/05/17 04:00 Room Air Post Procedure Recovery Score Activity: (2) Moves 4 extremities * Respiration: (2) Deep breath/cough Circulation: (2) +/-20% PreAnes Value Consciousness: (2) Fully Awake Oxygen Saturation: (2) > 92% On Room Air Post Anesthesia Score: 10 Discharge Sedation Level of Care: Fast Track Phase II Post Sedation Plan On clinical assessment, the patient appears to have tolerated the sedation without complications. Patient is recovering as anticipated. Patient will continue to be monitored by nursing and may be discharged when sedation discharge criteria are met per below protocol. Upon Completions of procedure and additional 15 minutes continue every 5 minute vital signs and the P.A.R. score; then discharge to a Phase I or Fast Track to Phase II per the following guidelines: * Discharge Patient to appropriate Phase II area if PAR is 8 or greater or return to pre- procedure baseline. The post - procedure orders will be as directed. * If PAR score is less than 8 or not return to pre-procedure baseline then patient will follow Phase I monitoring till PAR is reached for Phase II. The Phase I may be done in procedure room or may call to secure a Phase I area. * If naloxone or flumazenil are used for reversal, hold in Phase I for an additional 60 -120 minutes before discharge to Phase II. Please call the Sedation Physician to re-evaluate and complete post-note for discharge to Phase II area. Do NOT discharge from procedure sedation or Phase 1 until post- sedation evaluation note is complete by procedure /sedation MD Sedation Discharge Instructions to be given to the patient at discharge to home.
--- NOTE | 2017-08-05 15:22 | Pre Sedation Assessment ---
Pre Sedation Assessment General Date of Sedation: Aug 05, 2017. Vital Signs Past 12 Hours Date Time Temp Pulse Resp B/P (MAP) Pulse Ox O2 Delivery O2 Flow Rate FiO2 08/05/17 12:00 Room Air 08/05/17 11:32 36.7 64 19 116/77 (90) 92 Room Air 08/05/17 08:30 Room Air 08/05/17 07:39 36.4 63 18 111/75 (87) 97 Room Air 08/05/17 04:00 Room Air Review Cardiovascular: regular rate, rhythm, no edema Lungs: chest non-tender, lungs clear Pre-Sedation Airway Assessment Smoking Status: Unknown if Ever Smoked Hx of Sleep Apnea: Yes Hx of difficult intubation: No Short Thick Neck: Yes Thyro-mental Distance: > 3 Finger Breadths Oral Cavity: WNL Mallampati Classification: Class III Procedure Planning Contraindications for Sedation: None Current Medications Reviewed: Yes Notes The planned sedation has been discussed with the patient. Informed Consent was obtained. I have identified the patient, determined the appropriateness of sedation and have assessed the patient immediately prior to the procedure. All medicine(s) and interventions are by my order.
--- NOTE | 2017-08-05 15:24 | Cardiac Catheterization ---
Procedure Note Procedure Date Aug 05, 2017. Pre-Procedure Diagnosis Angina, Cardiomyopathy AUC Score 7 Post-Procedure Diagnosis Normal Coronary Arteries, Normal Intracardiac Pressures Procedure(s) Performed Coronary Angiography, Left Heart Cath Simulation Developer Luis Armando [employer] Dean(s) Hung Estimated Blood Loss 12 Medication(s) Fentanyl, Heparin, Nitroglycerin, Versed, Lidocaine 1% Summary of Findings Indication: Angina/Cardiomyopathy Access: 6Fr slender right radial artery Catheters: [place], JL3.5, MPA Findings: LM - Angiographically normal LAD - Angiographically normal; myocardial bridging in mid segment Circumflex - Angiographically normal RCA - Angiographically normal LVEDP - 10 No significant gradient across LV outflow tract/Aortic valve Arterial Closure: TR Band Summary: 1. Angiographically normal coronary arteries. 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 No significant LVOT/AoValve gradient. Normal intracardiac filling pressure Recommendations: Further evaluation for nonischemic cardiomyopathy per Dr. Hogan. Continued ASCVD risk factor modification Hemodynamics Rest Ao: 103/73/88 Final Ao: 116/91/103 LV: 117/10 Recommendations Medical therapy and/or Counseling Specimens None Radiation Exposure (mGy) 1864 Contrast (mls) 45 Fluids (cc crystalloids) 35 Drains NONE Anesthesia Moderate Procedural Complication(s) None Disposition PCU ACC Data Cardiac Status Clinical evaluation leading to the procedure CAD Presntation: Stable angina Anginal Classification: CCS III Heart Failure: No, NYHA Class: CCS I Cardiogenic Shock w/in 24Hrs: No Cardiac Arrest w/in 24Hrs: No Imaging studies past 6 months: Yes Stress studies past 6 months: No Closure Device Percutaneous Entry Location: Radial Closure Device: Radial Band Recommendations: Medical therapy and/or Counseling Intraprocedure Events Significant Dissection: No Perforation: No
[2017-08-05] MEDS ORDERED: SODIUM CHLORIDE 0.9% 1000ML 1,000 ML IV SCH (17:15)
[2017-08-06] VITALS (10 sets, daily range): BP systolic 111–132; BP diastolic 67–88; PULSE 61–82; TEMP 36.4–37.2; O2SAT 89–96
[2017-08-06] MEDS: MoRPHine SULFATE 2 MG/ML CARP IV PRN ×7 (00:01→23:13)
[2017-08-06] MEDS ORDERED: CEFAZOLIN IV 3,000 MG in SYRINGE 0 ML IV SCH (06:00)
[2017-08-06] MEDS: HEPARIN SOD 5000 UNIT/0.5 ML CARP SQ SCH ×3 (06:15→20:52)
[2017-08-06 07:26] LABS: BASO % 0.7 %; BASO ABS # 0.04 K/uL (0-0.2); EOS % 4.9 %; HEMATOCRIT 45.9 % (42-52); HEMOGLOBIN 16.2 g/dL (14.0-18.0); IG# 0.04 K/uL (0.00-0.02); LYMPH % 26.3 %; LYMPH ABS # 1.61 K/uL (1.2-3.4); MEAN CELL VOLUME 85.6 fL (80-100); MEAN CORPUSCULAR HEMOGLOBIN 30.2 pg (25-34); MEAN CORPUSCULAR HGB CONC 35.3 g/dl (32-36); MEAN PLATELET VOLUME 11.3 fL (7.4-10.4); MONO % 11.3 %; MONO ABS # 0.69 K/uL (0.11-0.59); NEUT % 56.1 %; NEUT ABS # 3.44 K/uL (1.4-6.5); PLATELET COUNT 175 K/uL (130-400); RED CELL DISTRIBUTION WIDTH CV 13.3 % (11.5-14.5); RED CELL DISTRIBUTION WIDTH SD 41.8 fL (36.4-46.3); WHITE BLOOD COUNT 6.12 K/uL (4.8-10.8)
--- NOTE | 2017-08-06 07:30 | Family Medicine Progress Note ---
Progress Note Date of Service Aug 06, 2017. Subjective Pt evaluation today including: conversation w/ patient Found patient resting comfortably in bed. Says that the cardiac cath went well yesterday. At present, says that he is symptom-free while remaining at rest. Says he's on track for the pacemaker procedure this morning. Denies any acute concerns. Constitutional: No fever, No chills Respiratory: No cough, No shortness of breath Cardiovascular: + chest pain (with exertion), No edema Abdomen: + constipation, No pain, No nausea, No vomiting, No diarrhea Medications Current Inpatient Medications Medications (Trade) Dose Ordered Sig/Ida Route Start Time Stop Time Status Last Admin Dose Admin Heparin Sodium (Porcine) (Heparin Sq 5000 Unit/0.5ml) 5,000 unit Q8H SQ 08/01/17 22:00 08/31/17 21:59 08/06/17 06:15 5,000 UNIT Acetaminophen (Tylenol Tab) 650 mg Q4H PRN PO 08/01/17 20:00 08/31/17 19:59 Al Hydrox/Mg Hydrox/Simethicone (Maalox Max Susp) 15 ml Q4H PRN PO 08/01/17 20:00 08/31/17 19:59 Magnesium Hydroxide (Milk Of Magnesia Susp) 30 ml Q12H PRN PO 08/01/17 20:00 08/31/17 19:59 Zolpidem Tartrate (Ambien Tab) 5 mg HSZ PRN PO 08/01/17 20:00 08/31/17 19:59 Ondansetron HCl (Zofran Inj) 4 mg Q6H PRN IV 08/01/17 20:00 08/31/17 19:59 08/03/17 13:28 4 MG Polyethylene (Miralax Powder Packet) 17 gm DAILY PRN PO 08/01/17 20:00 08/31/17 19:59 Aspirin (Ecotrin Tab) 81 mg DAILY PO 08/02/17 09:00 09/01/17 08:59 08/05/17 09:14 81 MG Atorvastatin Calcium (Lipitor Tab) 10 mg DAILY PO 08/02/17 09:00 09/01/17 08:59 08/05/17 09:16 10 MG Furosemide (Lasix Tab) 100 mg DAILY PO 08/02/17 09:00 09/01/17 08:59 08/05/17 09:14 100 MG Potassium Chloride (Klor-Con Tab) 20 meq DAILY PO 08/02/17 09:00 09/01/17 08:59 08/05/17 09:15 20 MEQ Spironolactone (Aldactone Tab) 25 mg DAILY PO 08/02/17 09:00 09/01/17 08:59 08/05/17 09:16 25 MG Tamsulosin HCl (Flomax Cap) 0.4 mg DAILY PO 08/02/17 09:00 09/01/17 08:59 08/05/17 09:15 0.4 MG Miscellaneous Information (Order Awaiting Action) 1 ea QS N/A 08/02/17 00:00 09/01/17 00:00 Miscellaneous (Iv Fluids Completed) 1 ea PRN PRN N/A 08/01/17 20:30 08/01/18 20:29 08/02/17 20:45 1 EA Morphine Sulfate (MoRPHine SULFATE INJ) 2 mg Q2H PRN IV 08/01/17 22:45 08/15/17 22:44 08/06/17 03:22 2 MG Metoprolol Succinate (Toprol Xl Tab) 100 mg BID PO 08/02/17 21:00 09/01/17 20:59 08/05/17 20:48 100 MG Objective Vital Signs Date Time Temp Pulse Resp B/P (MAP) Pulse Ox O2 Delivery O2 Flow Rate FiO2 08/06/17 04:00 CPAP 08/06/17 03:33 36.4 69 19 125/76 (92) 96 CPAP 08/06/17 00:00 CPAP 08/05/17 23:33 36.5 72 18 122/83 (96) 95 CPAP 08/05/17 22:22 80 95 08/05/17 20:00 Room Air 08/05/17 19:45 36.9 71 18 132/83 (99) 93 Room Air 08/05/17 17:53 36.6 71 18 135/82 (99) 92 Room Air 08/05/17 17:00 37.0 73 18 110/70 (83) 95 Room Air 08/05/17 16:25 69 18 122/75 (91) 93 Room Air 08/05/17 16:07 36.5 73 18 95/62 (73) 91 Room Air 08/05/17 16:00 Room Air 08/05/17 15:52 36.8 70 20 114/78 (90) 93 08/05/17 15:40 37.0 73 18 113/75 (88) 95 Room Air 08/05/17 15:37 36.8 76 20 117/73 (88) 92 Room Air 08/05/17 15:32 70 16 132/78 (96) 96 Room Air 08/05/17 15:17 70 16 129/77 (94) 96 Room Air 08/05/17 12:00 Room Air 08/05/17 11:32 36.7 64 19 116/77 (90) 92 Room Air 08/05/17 08:30 Room Air 08/05/17 07:39 36.4 63 18 111/75 (87) 97 Room Air Physical Exam Notes: General Appearance: Awake, alert & oriented, speaking easily, appears comfortable in general when lying still in bed, NAD. CV: +S1S2 RRR, no murmur. Left upper chest ICD in place. Midline sternotomy scar. Pulm: Clear to auscultation throughout. Abdomen: +BS, soft, non-tender, non-distended. Extremities: No pedal edema or calf tenderness. Moving all extremities naturally and easily. Dressing off of right wrist cath access, no present hematoma. Distal RUE sensation intact, normal cap refill. Neuro: No gross neuro deficits. Lines: PIV. Laboratory Results 08/06/17 06:59 Red Blood Count 5.36, Mean Corpuscular Volume 85.6, Mean Corpuscular Hemoglobin 30.2, Mean Corpuscular Hemoglobin Concent 35.3, Mean Platelet Volume 11.3, Neutrophils (%) (Auto) 56.1, Lymphocytes (%) (Auto) 26.3, Monocytes (%) (Auto) 11.3, Eosinophils (%) (Auto) 4.9, Basophils (%) (Auto) 0.7, Neutrophils # (Auto ) 3.44, Lymphocytes # (Auto) 1.61, Monocytes # (Auto) 0.69, Eosinophils # (Auto ) 0.30, Basophils # (Auto) 0.04 08/06/17 06:59 Test 08/06/17 06:59 White Blood Count 6.12 K/uL (4.8-10.8) Red Blood Count 5.36 M/uL (4.7-6.1) Hemoglobin 16.2 g/dL (14.0-18.0) Hematocrit 45.9 % (42-52) Mean Corpuscular Volume 85.6 fL (80-100) Mean Corpuscular Hemoglobin 30.2 pg (25-34) Mean Corpuscular Hemoglobin Concent 35.3 g/dl (32-36) Platelet Count 175 K/uL (130-400) Mean Platelet Volume 11.3 fL (7.4-10.4) Neutrophils (%) (Auto) 56.1 % Lymphocytes (%) (Auto) 26.3 % Monocytes (%) (Auto) 11.3 % Eosinophils (%) (Auto) 4.9 % Basophils (%) (Auto) 0.7 % Neutrophils # (Auto) 3.44 K/uL (1.4-6.5) Lymphocytes # (Auto) 1.61 K/uL (1.2-3.4) Monocytes # (Auto) 0.69 K/uL (0.11-0.59) Eosinophils # (Auto) 0.30 K/uL (0-0.5) Basophils # (Auto) 0.04 K/uL (0-0.2) RDW Standard Deviation 41.8 fL (36.4-46.3) RDW Coefficient of Variation 13.3 % (11.5-14.5) Immature Granulocyte % (Auto) 0.7 % Immature Granulocyte # (Auto) 0.04 K/uL (0.00-0.02) Anion Gap 7.0 mmol/L (3-11) Est Creatinine Clear Calc Drug Dose 120.4 ml/min Estimated GFR () 82.5 Estimated GFR (Non- 71.2 BUN/Creatinine Ratio 18.2 (10-20) Calcium Level 9.1 mg/dl (8.5-10.1) Phosphorus Level 4.0 mg/dl (2.5-4.9) Magnesium Level 2.3 mg/dl (1.8-2.4) Total Bilirubin 0.7 mg/dl (0.2-1) Aspartate Amino Transf (AST/SGOT) 25 U/L (15-37) Alanine Aminotransferase (ALT/SGPT) 41 U/L (12-78) Alkaline Phosphatase 78 U/L (45-117) Total Protein 7.3 gm/dl (6.4-8.2) Albumin 3.6 gm/dl (3.4-5.0) Globulin 3.7 gm/dl (2.5-4.0) Albumin/Globulin Ratio 1.0 (0.9-2) Assessment and Plan 46 yo male admitted on 01Aug2017 for chest pain. PMH: Hypertrophic cardiomyopathy s/p myectomy and MV repair on 02Jan2016 [place] [facility] [place] dual-chamber ICD implantation on 02May2017, complete heart block s/p dual- chamber ICD, diastolic CHF, HTN, HLD, sleep apnea on CPAP, low back pain, BPH, closed fracture of cervical spine, s/p appendectomy. Chest pain / palpitations: Occurs with exertion, virtually resolved with rest. EKG is a ventricularly-paced rhythm. Minimal TnI elevation, noted serially, is near his baseline and may be due to the HCM. From a pulm standpoint, no noted fevers, SOB, has clear lungs on exam, and both CXR + CTA chest did not note any acute pulmonary findings. Current chest symptoms may be due to his HCM. - Cardiology onboard. Patient is now s/p cath yesterday () which was clean (see full report). Now s/p biventricular ICD (re)placement today. See their notes for full discussion. Hypertrophic cardiomyopathy (HCM): cardiac echo noted EF 40-45% with some near-global hypokinesis (but poor image quality). Non-ischemic in nature based on cath. Cardiology changed to metoprolol succinate (Toprol XL) with increased dose of 100 mg BID. Concerns about dyssynchrony and his wide LBBB (see "CP/palpitations" above). Chronic diastolic CHF: On home lasix 100 mg daily. No current SOB or peripheral edema to suggest volume overload. Complete heart block: S/p dual-chamber ICD. Interrogation per EP and replacement as discussed above. BPH: History of same. On home flomax. HTN and HLD: History of same. See above BB dosing. On home lipitor 10 mg and Aldactone 25 mg. Low back pain: Lumbar spine MRI on 26Jul2017 showed annular fissure with disc bulge and mild facet arthropathy at L5-S1 without spinal stenosis. Tylenol prn for pain here. Pulmonary nodules: Noted on 29Mar CTA chest. Needs related PCM follow-up at time of discharge. Hepatic steatosis: Noted on 29Mar CTA chest. 31Mar gallbladder u/s was unremarkable with exception of the same. The steatosis needs related PCM follow -up at time of discharge. Code status: Full code. Diet: Heart healthy, low sodium (2 gm). DVT prophy: Heparin TID. PT/OT: Deferred. Disbo: Admitted to telemetry. Lives at home alone. Resident Physician Supervision Note: I interviewed and examined the patient. Discussed with Dr. Mera and agree with findings and plan as documented in the note. Any exceptions or clarifications are listed here: None Documented By: Clarke Ritter feeling ok post pacer change, not allowed up yet so can't gauge exertional sx vitals noted nad breathing unlabored no pallor or icterus palpitations / chest sx - hopefully improve post pacer change, otherwise as above Resident Tracking Resident Involvement: Resident Care Provided Care Provided: Adult Hospital Medicine (inpatient)
[2017-08-06 07:51] LABS: ALBUMIN 3.6 gm/dl (3.4-5.0); CALCIUM 9.1 mg/dl (8.5-10.1); CREATININE 1.22 mg/dl (0.60-1.40); POTASSIUM 3.9 mmol/L (3.5-5.1)
[2017-08-06 07:54] LABS: TOTAL PROTEIN 7.3 gm/dl (6.4-8.2)
[2017-08-06] MEDS ORDERED: LACTATED RINGER'S 1000ML 1,000 ML IV ONE (08:57)
--- NOTE | 2017-08-06 08:57 | Cardiology Follow-Up ---
Subjective Date of Service: Aug 06, 2017. Pt evaluation today including: conversation w/ patient, physical exam, lab review, review of studies, review of inpatient medication list History of Present Illness Continue to feel poorly with exertion, no rest symptoms, no orthopnea or PND. No chest pain or pain at cath site in right wrist. Social History Smoking Status: Unknown if Ever Smoked Review of Systems Respiratory: + shortness of breath, + dyspnea on exertion, No cough Cardiac: + chest pain (with exertion), No edema Medications Cardiovascular: Item Value Date Time Metoprolol 100 mg 08/02/17 2100 Succinate BID/PO 08/05/172047 (Toprol Xl Tab) Aspirin 81 mg 08/02/17 0900 (Ecotrin Tab) DAILY/PO 08/05/1714 Atorvastatin 10 mg 08/02/1700 Calcium DAILY/PO 08/05/17915 (Lipitor Tab) Furosemide 100 mg 08/02/17 0900 (Lasix Tab) DAILY/PO 08/05/17 0914 Potassium Chloride 20 meq 08/02/17899 (Klor-Con Tab) DAILY/PO 08/05/1715 Spironolactone 25 mg 08/02/17 0900 (Aldactone Tab) DAILY/PO 08/05/17 09 Objective Vital Signs Past 12 Hours Date Time Temp Pulse Resp B/P (MAP) Pulse Ox O2 Delivery O2 Flow Rate FiO2 08/06/17 08:00 36.6 66 20 123/78 (93) 95 08/06/17 04:00 CPAP 08/06/17 03:33 36.4 69 19 125/76 (92) 96 CPAP 08/06/17 00:00 CPAP 08/05/17 23:33 36.5 72 18 122/83 (96) 95 CPAP 08/05/17 22:22 80 95 Last Recorded Weight-Kilograms: 151.500 Physical Exam Constitutional: Level of Distress: NAD Lungs: Auscultation: breath sounds normal Cardiovascular: Heart Auscultation: RRR Extremities: no edema R wrist cath site without hematoma or bruit, good pulse Data Laboratory Results: Last 24 Hours Test 08/06/17 06:59 White Blood Count 6.12 K/uL Red Blood Count 5.36 M/uL Hemoglobin 16.2 g/dL Hematocrit 45.9 % Mean Corpuscular Volume 85.6 fL Mean Corpuscular Hemoglobin 30.2 pg Mean Corpuscular Hemoglobin Concent 35.3 g/dl Platelet Count 175 K/uL Mean Platelet Volume 11.3 fL Neutrophils (%) (Auto) 56.1 % Lymphocytes (%) (Auto) 26.3 % Monocytes (%) (Auto) 11.3 % Eosinophils (%) (Auto) 4.9 % Basophils (%) (Auto) 0.7 % Neutrophils # (Auto) 3.44 K/uL Lymphocytes # (Auto) 1.61 K/uL Monocytes # (Auto) 0.69 K/uL Eosinophils # (Auto) 0.30 K/uL Basophils # (Auto) 0.04 K/uL RDW Standard Deviation 41.8 fL RDW Coefficient of Variation 13.3 % Immature Granulocyte % (Auto) 0.7 % Immature Granulocyte # (Auto) 0.04 K/uL Sodium Level 137 mmol/L Potassium Level 3.9 mmol/L Chloride Level 100 mmol/L Carbon Dioxide Level 30 mmol/L Anion Gap 7.0 mmol/L Blood Urea Nitrogen 22 mg/dl Creatinine 1.22 mg/dl Est Creatinine Clear Calc Drug Dose 120.4 ml/min Estimated GFR () 82.5 Estimated GFR (Non- 71.2 BUN/Creatinine Ratio 18.2 Random Glucose 116 mg/dl Calcium Level 9.1 mg/dl Phosphorus Level 4.0 mg/dl Magnesium Level 2.3 mg/dl Total Bilirubin 0.7 mg/dl Aspartate Amino Transf (AST/SGOT) 25 U/L Alanine Aminotransferase (ALT/SGPT) 41 U/L Alkaline Phosphatase 78 U/L Total Protein 7.3 gm/dl Albumin 3.6 gm/dl Globulin 3.7 gm/dl Albumin/Globulin Ratio 1.0 EKG: from 08/05/2017 AV pacing with very wide QRS (234 msec), paced LBBB Telemetry reviewed: V pacing throughout Assessment and Plan 1. CHF: He has NYHA class III congestive heart symptoms, he has a number of reasons to have this but we have excluded ischemic heart disease as a cause and he has now developed progressive left ventricular dysfunction. Although his underlying hypertrophic cardiomyopathy could be one because the progression of left ventricular dysfunction has been rapid and he has a left bundle branch block (paced) with a very wide complex. His symptoms are very likely due to dyssynchrony, or at least this is likely to be a marked contributor to his symptomatology. 2. Nonischemic cardiomyopathy: He has a nonischemic cardiomyopathy (based on catheterization yesterday) with a progressive decrease left ventricular dysfunction which has been quite marked recently and he does seem to be on appropriate medications currently. I suspect at least a good portion of his cardiomyopathy is due to dyssynchrony with his wide left bundle branch block, there may be a contribution of his hypertrophic cardiomyopathy. He already has an ICD in place. I think we should upgrade him to a biventricular pacer, which would require the addition of a left ventricular lead. 3. Severe dyssynchrony: He has a LBBB with QRS 234 msec which is paced, this is very wide and certainly is causing a great deal of dyssynchrony. We should be able to at least partially correct this dyssynchrony with biventricular pacing. We will therefore plan on an upgrade to biventricular ICD today, this will require the addition of a left ventricular lead. I discussed the indications, procedure, risks and alternatives with him and he understands and agrees to proceed. There is some risk of kidney problems related to but that is minimal, additionally he had dye yesterday but his creatinine is unchanged today. There is also some risk to conscious sedation I reviewed that with him. Consent obtained for conscious sedation and for ICD upgrade. For upgrade to Bi-V ICD today. Thank you for allowing me to participate in his care.
[2017-08-06] MEDS: POTASSIUM CHLORIDE 20 MEQ TABCR PO SCH (09:00)
[2017-08-06] MEDS: ASPIRIN 81 MG ECTAB PO SCH (09:00)
[2017-08-06] MEDS: FUROSEMIDE 40 MG TAB PO SCH (09:00)
[2017-08-06] MEDS: METOPROLOL SUCC 50MG EXT REL TAB PO SCH ×2 (09:00→20:50)
[2017-08-06] MEDS: SPIRONOLACTONE 25 MG TAB PO SCH (09:00)
[2017-08-06] MEDS: TAMSULOSIN HCL 0.4 MG CAP PO SCH (09:00)
[2017-08-06] MEDS: ATORVASTATIN 10 MG TAB PO SCH (09:00)
--- NOTE | 2017-08-06 10:13 | Pre Sedation Assessment ---
Pre Sedation Assessment General Date of Sedation: Aug 06, 2017. Vital Signs Past 12 Hours Date Time Temp Pulse Resp B/P (MAP) Pulse Ox O2 Delivery O2 Flow Rate FiO2 08/06/17 08:00 36.6 66 20 123/78 (93) 95 08/06/17 04:00 CPAP 08/06/17 03:33 36.4 69 19 125/76 (92) 96 CPAP 08/06/17 00:00 CPAP 08/05/17 23:33 36.5 72 18 122/83 (96) 95 CPAP 08/05/17 22:22 80 95 Review Cardiovascular: regular rate, rhythm, no edema Lungs: chest non-tender, lungs clear Pre-Sedation Airway Assessment Smoking Status: Unknown if Ever Smoked Hx of Sleep Apnea: Yes Hx of difficult intubation: No Short Thick Neck: Yes Thyro-mental Distance: > 3 Finger Breadths Oral Cavity: WNL Mallampati Classification: Class III ASA Classification: Class III NPO Status Date of Last Intake of Fluids: Aug 05, 2017 Date of Last Intake of Solids: Aug 05, 2017 Procedure Planning Contraindications for Sedation: None Current Medications Reviewed: Yes Notes The planned sedation has been discussed with the patient. Informed Consent was obtained. I have identified the patient, determined the appropriateness of sedation and have assessed the patient immediately prior to the procedure. All medicine(s) and interventions are by my order.
[2017-08-06] MEDS ORDERED: MIDAZOLAM HCL 5 MG/ML 1 ML VIAL ONE (11:42)
[2017-08-06] MEDS ORDERED: FENTANYL CITRATE INJ 50 MCG/1 ML 2 ML VIAL ONE (11:42)
[2017-08-06] MEDS ORDERED: LIDOCAINE HCL 1% 20 ML VIAL ONE ×2 (12:48)
[2017-08-06] MEDS ORDERED: BACITRACIN OINT 0.9 GM PKT ONE (14:13)
--- NOTE | 2017-08-06 14:36 | [facility] Operative Report ---
Operative Report Operative Date Aug 06, 2017. Pre-Operative Diagnosis Nonischemic cardiomyopathy, paced left bundle branch block, class III congestive heart failure Post-Operative Diagnosis Same Procedure(s) Performed Left subclavian venogram Coronary sinus angiogram LV lead implantation Dual-chamber ICD explantation Biventricular ICD implantation Surgeon Dr. Medrano Complaint Clerk Surgeon(s) None Estimated Blood Loss 50 cc Findings Patent left subclavian vein Good left ventricular lead placement Specimens Old ICD, return to [employer] Anesthesia Local with sedation Complication(s) None Disposition PCU Description of Procedure After obtaining informed consent for the procedure, the patient was brought to the laboratory being NPO after midnight. After identification in the laboratory the patient was prepped and draped in the standard sterile manner for a left- sided device upgrade. Dye was injected the left arm IV site to opacify the left subclavian vein. The subclavian vein was identified and found to be free of obstruction. The left prepectoral region was anesthetized with 1% lidocaine local anesthetic and left axillary venipuncture was performed by percutaneous technique and a guidewire placed through the left subclavian vein into the superior vena cava. The area was further infiltrated with 1% lidocaine local anesthetic and a 2 cm incision was made in the medial portion of the old incision scar. A [place] coronary sinus sheath was advanced to position in the right atrium. A right angle inner guide was placed through the sheath and using x-ray dye the os of the coronary sinus was identified. A guidewire was placed through the introducer into the coronary sinus and the [place] sheath was advanced into the coronary sinus. A balloon occlusion catheter was advanced through this sheath into the coronary sinus, the balloon was inflated and dye was injected in various projections to obtain a coronary sinus angiogram. A good vessel was identified and a 0.014 inch guidewire was advanced into this vessel. A quadripolar coronary sinus catheter was advanced over the guidewire into good distal position. The left ventricular pacing threshold was evaluated in various configurations, as recorded on the implant data sheet. Diaphragmatic pacing was evaluated at a 10 V output, as indicated on the data sheet. Once this lead was in position the introducer system was removed from the lead and the lead was attached to the anterior pectoral fascia using 2 sutures of 2-0 silk around the lead collar. The area was further infiltrated with 1% lidocaine local anesthetic and the incision was completed to about 6 cm and carried down to the old ICD it was disconnected from the leads. A bacitracin soaked sponge was placed in the pocket and a new ICD was attached to the leads and found to be functioning normally. The bacitracin-soaked sponge was removed from the pocket, the ICD was placed in the pocket with the leads coiled beneath it. The incision was closed with a running double subcutaneous closure of 3-0 V-Lock absorbable suture followed by a running subcuticular skin closure of 4-0 V lock absorbable suture. The patient tolerated the procedure well, there were no complications and the patient was transferred to the same-day surgery unit for observation and subsequent discharge. I attest to the content of the Intraoperative Record and any orders documented therein. Any exceptions are noted below.
--- NOTE | 2017-08-06 14:38 | Post Sedation Assessment ---
Post Sedation Assessment General Date of Sedation Aug 06, 2017. Vital Signs: Vital Signs Past 12 Hours Date Time Temp Pulse Resp B/P (MAP) Pulse Ox O2 Delivery O2 Flow Rate FiO2 08/06/17 14:15 71 18 149/87 (107) 97 Oxymask 3 08/06/17 11:57 37.0 79 22 117/75 (89) 95 Room Air 08/06/17 08:05 Room Air 08/06/17 08:00 36.6 66 20 123/78 (93) 95 08/06/17 04:00 CPAP 08/06/17 03:33 36.4 69 19 125/76 (92) 96 CPAP Post Procedure Recovery Score Activity: (2) Moves 4 extremities * Respiration: (2) Deep breath/cough Circulation: (2) +/-20% PreAnes Value Consciousness: (2) Fully Awake Oxygen Saturation: (2) > 92% On Room Air Post Anesthesia Score: 10 Discharge Sedation Level of Care: Fast Track Phase II Post Sedation Plan On clinical assessment, the patient appears to have tolerated the sedation without complications. Patient is recovering as anticipated. Patient will continue to be monitored by nursing and may be discharged when sedation discharge criteria are met per below protocol. Upon Completions of procedure and additional 15 minutes continue every 5 minute vital signs and the P.A.R. score; then discharge to a Phase I or Fast Track to Phase II per the following guidelines: * Discharge Patient to appropriate Phase II area if PAR is 8 or greater or return to pre- procedure baseline. The post - procedure orders will be as directed. * If PAR score is less than 8 or not return to pre-procedure baseline then patient will follow Phase I monitoring till PAR is reached for Phase II. The Phase I may be done in procedure room or may call to secure a Phase I area. * If naloxone or flumazenil are used for reversal, hold in Phase I for an additional 60 -120 minutes before discharge to Phase II. Please call the Sedation Physician to re-evaluate and complete post-note for discharge to Phase II area. Do NOT discharge from procedure sedation or Phase 1 until post- sedation evaluation note is complete by procedure /sedation MD Sedation Discharge Instructions to be given to the patient at discharge to home.
[2017-08-06] MEDS ORDERED: ACETAMINOPHEN 325 MG TAB PO PRN (14:45)
[2017-08-06] MEDS: ONDANSETRON INJ 2 MG/ML 2 ML VIAL IV PRN (21:26)
[2017-08-07 03:33] VITALS: BP 108/69; PULSE 71; TEMP 36.9; O2SAT 95
[2017-08-07] MEDS: MoRPHine SULFATE 2 MG/ML CARP IV PRN ×3 (03:46→21:56)
[2017-08-07] MEDS: HEPARIN SOD 5000 UNIT/0.5 ML CARP SQ SCH ×3 (05:54→21:33)
[2017-08-07] MEDS ORDERED: CEFAZOLIN SOD 1000MG/7.5 ML IV PUSH IV SCH (06:00)
[2017-08-07 06:38] LABS: BASO % 0.8 %; BASO ABS # 0.06 K/uL (0-0.2); EOS % 4.5 %; EOS ABS # 0.34 K/uL (0-0.5); HEMATOCRIT 44.6 % (42-52); HEMOGLOBIN 15.8 g/dL (14.0-18.0); IG# 0.04 K/uL (0.00-0.02); LYMPH % 20.2 %; LYMPH ABS # 1.53 K/uL (1.2-3.4); MEAN CELL VOLUME 85.9 fL (80-100); MEAN CORPUSCULAR HEMOGLOBIN 30.4 pg (25-34); MEAN CORPUSCULAR HGB CONC 35.4 g/dl (32-36); MEAN PLATELET VOLUME 10.5 fL (7.4-10.4); MONO % 11.1 %; MONO ABS # 0.84 K/uL (0.11-0.59); NEUT % 62.9 %; NEUT ABS # 4.77 K/uL (1.4-6.5); PLATELET COUNT 189 K/uL (130-400); RED CELL DISTRIBUTION WIDTH CV 13.3 % (11.5-14.5); RED CELL DISTRIBUTION WIDTH SD 41.9 fL (36.4-46.3); WHITE BLOOD COUNT 7.58 K/uL (4.8-10.8)
--- NOTE | 2017-08-07 06:55 | DIAGNOSTIC IMAGING REPORT ---
CHEST 2 VIEWS ROUTINE CLINICAL HISTORY: Chest x-ray for pacemaker placement COMPARISON STUDY: 08/01/2017 FINDINGS: A left subclavian pacer/defibrillator is identified. There is no pneumothorax. There is no focal pulmonary consolidation. There is no failure. There are no pleural effusions. The electrode position is unremarkable.[ IMPRESSION: No evidence of pneumothorax. Electronically signed by: Eduardo Miranda M.D. 08/07/2017 6:53 AM Dictated Date/Time: 08/07/2017 6:52 AM
[2017-08-07 07:13] LABS: CALCIUM 9.2 mg/dl (8.5-10.1); CREATININE 1.28 mg/dl (0.60-1.40); POTASSIUM 4.1 mmol/L (3.5-5.1)
[2017-08-07 07:29] VITALS: BP 119/77; PULSE 65; TEMP 37.4; O2SAT 93
--- NOTE | 2017-08-07 08:04 | Family Medicine Progress Note ---
Progress Note Date of Service Aug 07, 2017. Subjective Pt evaluation today including: conversation w/ patient Found patient sitting at the side of the bed, eating breakfast. Says that he didn't have any chest symptoms on his walking from the bed to the bathroom, but that he did have his "baseline" mild SOB. Says that the left upper surgical site was quite painful overnight, but pain improved with morphine. Otherwise denies any acute medical concerns. Constitutional: No fever Respiratory: + shortness of breath, + dyspnea on exertion, No cough Cardiovascular: No edema Abdomen: No pain, No nausea, No vomiting, No diarrhea Medications Current Inpatient Medications Medications (Trade) Dose Ordered Sig/Ida Route Start Time Stop Time Status Last Admin Dose Admin Heparin Sodium (Porcine) (Heparin Sq 5000 Unit/0.5ml) 5,000 unit Q8H SQ 08/01/17 22:00 08/31/17 21:59 08/07/17 05:54 5,000 UNIT Al Hydrox/Mg Hydrox/Simethicone (Maalox Max Susp) 15 ml Q4H PRN PO 08/01/17 20:00 08/31/17 19:59 Magnesium Hydroxide (Milk Of Magnesia Susp) 30 ml Q12H PRN PO 08/01/17 20:00 08/31/17 19:59 Zolpidem Tartrate (Ambien Tab) 5 mg HSZ PRN PO 08/01/17 20:00 08/31/17 19:59 Ondansetron HCl (Zofran Inj) 4 mg Q6H PRN IV 08/01/17 20:00 08/31/17 19:59 08/06/17 21:26 4 MG Polyethylene (Miralax Powder Packet) 17 gm DAILY PRN PO 08/01/17 20:00 08/31/17 19:59 Aspirin (Ecotrin Tab) 81 mg DAILY PO 08/02/17 09:00 09/01/17 08:59 08/05/17 09:14 81 MG Atorvastatin Calcium (Lipitor Tab) 10 mg DAILY PO 08/02/17 09:00 09/01/17 08:59 08/05/17 09:16 10 MG Furosemide (Lasix Tab) 100 mg DAILY PO 08/02/17 09:00 09/01/17 08:59 08/05/17 09:14 100 MG Potassium Chloride (Klor-Con Tab) 20 meq DAILY PO 08/02/17 09:00 09/01/17 08:59 08/05/17 09:15 20 MEQ Spironolactone (Aldactone Tab) 25 mg DAILY PO 08/02/17 09:00 09/01/17 08:59 08/05/17 09:16 25 MG Tamsulosin HCl (Flomax Cap) 0.4 mg DAILY PO 08/02/17 09:00 09/01/17 08:59 08/05/17 09:15 0.4 MG Miscellaneous Information (Order Awaiting Action) 1 ea QS N/A 08/02/17 00:00 09/01/17 00:00 Miscellaneous (Iv Fluids Completed) 1 ea PRN PRN N/A 08/01/17 20:30 08/01/18 20:29 08/02/17 20:45 1 EA Morphine Sulfate (MoRPHine SULFATE INJ) 2 mg Q2H PRN IV 08/01/17 22:45 08/15/17 22:44 08/07/17 05:59 2 MG Metoprolol Succinate (Toprol Xl Tab) 100 mg BID PO 08/02/17 21:00 09/01/17 20:59 08/06/17 20:50 100 MG Lactated Ringer's 1,000 ml @ 15 mls/hr Q24H ONCE IV 08/06/17 08:57 08/07/17 08:56 08/06/17 10:47 15 MLS/HR Acetaminophen (Tylenol Tab) 650 mg Q4H PRN PO 08/06/17 14:45 09/05/17 14:44 Ketorolac Tromethamine (Toradol Tab) 10 mg Q6H PRN PO 08/06/17 14:45 08/11/17 14:44 Objective Vital Signs Date Time Temp Pulse Resp B/P (MAP) Pulse Ox O2 Delivery O2 Flow Rate FiO2 08/07/17 07:29 37.4 65 22 119/77 (91) 93 Room Air 08/07/17 04:00 CPAP 08/07/17 03:33 36.9 71 16 108/69 (82) 95 CPAP 08/06/17 23:59 CPAP 08/06/17 23:33 37.2 82 20 121/79 (93) 94 CPAP 08/06/17 22:23 77 93 08/06/17 20:52 Room Air 08/06/17 19:20 37.0 75 20 111/67 (82) 92 Room Air 08/06/17 16:00 Room Air 08/06/17 15:33 70 118/76 (90) 92 Room Air 08/06/17 15:17 71 22 132/87 (102) Room Air 08/06/17 15:02 61 20 130/88 (102) 92 Room Air 08/06/17 14:48 37.0 71 20 126/86 (99) 89 Room Air 08/06/17 14:25 82 18 154/83 (106) 96 Room Air Oxymask 08/06/17 14:15 71 18 149/87 (107) 97 Oxymask 3 08/06/17 11:57 37.0 79 22 117/75 (89) 95 Room Air 08/06/17 08:05 Room Air Physical Exam Notes: General Appearance: Awake, alert & oriented, speaking easily, appears comfortable in general even when sitting on side of bed, in NAD. CV: +S1S2 RRR, no murmur. Left upper chest bandage in place, c/d/i. Midline sternotomy scar. Pulm: Clear to auscultation throughout. Abdomen: +BS, soft, non-tender, non-distended. Extremities: No pedal edema or calf tenderness. Moving all extremities naturally and easily. Dressing off of right wrist cath access, no present hematoma. Distal RUE sensation intact, normal cap refill. Neuro: No gross neuro deficits. Lines: PIV. Laboratory Results 08/07/17 06:16 Red Blood Count 5.19, Mean Corpuscular Volume 85.9, Mean Corpuscular Hemoglobin 30.4, Mean Corpuscular Hemoglobin Concent 35.4, Mean Platelet Volume 10.5, Neutrophils (%) (Auto) 62.9, Lymphocytes (%) (Auto) 20.2, Monocytes (%) (Auto) 11.1, Eosinophils (%) (Auto) 4.5, Basophils (%) (Auto) 0.8, Neutrophils # (Auto ) 4.77, Lymphocytes # (Auto) 1.53, Monocytes # (Auto) 0.84, Eosinophils # (Auto ) 0.34, Basophils # (Auto) 0.06 08/07/17 06:16 Test 08/07/17 06:16 White Blood Count 7.58 K/uL (4.8-10.8) Red Blood Count 5.19 M/uL (4.7-6.1) Hemoglobin 15.8 g/dL (14.0-18.0) Hematocrit 44.6 % (42-52) Mean Corpuscular Volume 85.9 fL (80-100) Mean Corpuscular Hemoglobin 30.4 pg (25-34) Mean Corpuscular Hemoglobin Concent 35.4 g/dl (32-36) Platelet Count 189 K/uL (130-400) Mean Platelet Volume 10.5 fL (7.4-10.4) Neutrophils (%) (Auto) 62.9 % Lymphocytes (%) (Auto) 20.2 % Monocytes (%) (Auto) 11.1 % Eosinophils (%) (Auto) 4.5 % Basophils (%) (Auto) 0.8 % Neutrophils # (Auto) 4.77 K/uL (1.4-6.5) Lymphocytes # (Auto) 1.53 K/uL (1.2-3.4) Monocytes # (Auto) 0.84 K/uL (0.11-0.59) Eosinophils # (Auto) 0.34 K/uL (0-0.5) Basophils # (Auto) 0.06 K/uL (0-0.2) RDW Standard Deviation 41.9 fL (36.4-46.3) RDW Coefficient of Variation 13.3 % (11.5-14.5) Immature Granulocyte % (Auto) 0.5 % Immature Granulocyte # (Auto) 0.04 K/uL (0.00-0.02) Anion Gap 6.0 mmol/L (3-11) Est Creatinine Clear Calc Drug Dose 115.1 ml/min Estimated GFR () 77.8 Estimated GFR (Non- 67.1 BUN/Creatinine Ratio 19.4 (10-20) Calcium Level 9.2 mg/dl (8.5-10.1) Assessment and Plan 46 yo male admitted on 01Aug2017 for chest pain. PMH: Hypertrophic cardiomyopathy s/p myectomy and MV repair on 02Jan2016 at [facility] , dual-chamber ICD implantation on 02May2017, complete heart block s/p dual- chamber ICD, diastolic CHF, HTN, HLD, sleep apnea on CPAP, low back pain, BPH, closed fracture of cervical spine, s/p appendectomy. Chest pain / palpitations: Occurs with exertion, virtually resolved with rest. Minimal TnI elevation, noted serially, is near his baseline and may be due to the HCM. From a pulm standpoint, no noted fevers, SOB, has clear lungs on exam , and both CXR + CTA chest did not note any acute pulmonary findings. Current chest symptoms may be due to his HCM. Cardiology onboard. Patient is now s/p cath 02Apr which was clean (see full report). Now s/p biventricular ICD (re) placement 03Apr. See their notes for full discussion. - Patient has continued to have some fatigue and exertional symptoms s/p these procedures. Will keep in hospital overnight for further observation. Hypertrophic cardiomyopathy (HCM): cardiac echo noted EF 40-45% with some near-global hypokinesis (but poor image quality). Non-ischemic in nature based on [id number] cath. Cardiology changed to metoprolol succinate (Toprol XL) with increased dose of 100 mg BID. Chronic diastolic CHF: On home lasix 100 mg daily. No current SOB or peripheral edema to suggest volume overload. Complete heart block: S/p replacement to biventricular ICD as noted above. BPH: History of same. On home flomax. HTN and HLD: History of same. See above BB dosing. On home lipitor 10 mg and Aldactone 25 mg. Low back pain: Lumbar spine MRI on [id number] showed annular fissure with disc bulge and mild facet arthropathy at L5-S1 without spinal stenosis. Tylenol prn for pain here. Pulmonary nodules: Noted on 29Jul CTA chest. Needs related PCM follow-up at time of discharge. Hepatic steatosis: Noted on 29Jul CTA chest. 31Mar gallbladder u/s was unremarkable with exception of the same. The steatosis needs related PCM follow -up at time of discharge. Code status: Full code. Diet: Heart healthy, low sodium (2 gm). DVT prophy: Heparin TID. PT/OT: Deferred. Disbo: Admitted to telemetry. Lives at home alone. Resident Physician Supervision Note: I interviewed and examined the patient. Discussed with Dr. Mera and agree with findings and plan as documented in the note. Any exceptions or clarifications are listed here: None Documented By: Clarke Ritter feeling less palpitations but still sweaty and LR chest pain/palpitations - palpitations improved post pacer change, LR/sweats persist - d/w cardiology - for now best treatment is watchful waiting/time - can increase dilt to help w HCM but felt too soon, can refer to [facility] bu tdoesn't appear to need inpatient transfer otherwise as above Resident Tracking Resident Involvement: Resident Care Provided Care Provided: Adult Hospital Medicine (inpatient)
[2017-08-07] MEDS: POTASSIUM CHLORIDE 20 MEQ TABCR PO SCH (08:29)
[2017-08-07] MEDS: SPIRONOLACTONE 25 MG TAB PO SCH (08:29)
[2017-08-07] MEDS: FUROSEMIDE 40 MG TAB PO SCH (08:30)
[2017-08-07] MEDS: TAMSULOSIN HCL 0.4 MG CAP PO SCH (08:30)
[2017-08-07] MEDS: ATORVASTATIN 10 MG TAB PO SCH (08:31)
[2017-08-07] MEDS: METOPROLOL SUCC 50MG EXT REL TAB PO SCH ×2 (08:31→21:31)
[2017-08-07] MEDS: ASPIRIN 81 MG ECTAB PO SCH (08:31)
[2017-08-07] MEDS: KETOROLAC TROMETHAMINE 10 MG TAB PO PRN ×2 (08:38→19:48)
--- NOTE | 2017-08-07 08:44 | Cardiology Follow-Up ---
Subjective Date of Service: Aug 07, 2017. Pt evaluation today including: conversation w/ patient, physical exam, lab review, review of studies, review of inpatient medication list History of Present Illness He has some incisional discomfort, no chest discomfort. In general he does not feel much different than before but has not been very active. Social History Smoking Status: Former Smoker Review of Systems Respiratory: No cough, No shortness of breath Cardiac: + chest pain (with exertion), No edema Objective Vital Signs Past 12 Hours Date Time Temp Pulse Resp B/P (MAP) Pulse Ox O2 Delivery O2 Flow Rate FiO2 08/07/17 07:29 37.4 65 22 119/77 (91) 93 Room Air 08/07/17 04:00 CPAP 08/07/17 03:33 36.9 71 16 108/69 (82) 95 CPAP 08/06/17 23:59 CPAP 08/06/17 23:33 37.2 82 20 121/79 (93) 94 CPAP 08/06/17 22:23 77 93 08/06/17 20:52 Room Air Last Recorded Weight-Kilograms: 152.400 Physical Exam Constitutional: Level of Distress: NAD Lungs: Auscultation: breath sounds normal Cardiovascular: Heart Auscultation: RRR, no rubs Extremities: no edema The pacemaker site looks good, there is minor incisional bleeding as expected. No hematoma. Data Laboratory Results: Last 24 Hours Test 08/07/17 06:16 White Blood Count 7.58 K/uL Red Blood Count 5.19 M/uL Hemoglobin 15.8 g/dL Hematocrit 44.6 % Mean Corpuscular Volume 85.9 fL Mean Corpuscular Hemoglobin 30.4 pg Mean Corpuscular Hemoglobin Concent 35.4 g/dl Platelet Count 189 K/uL Mean Platelet Volume 10.5 fL Neutrophils (%) (Auto) 62.9 % Lymphocytes (%) (Auto) 20.2 % Monocytes (%) (Auto) 11.1 % Eosinophils (%) (Auto) 4.5 % Basophils (%) (Auto) 0.8 % Neutrophils # (Auto) 4.77 K/uL Lymphocytes # (Auto) 1.53 K/uL Monocytes # (Auto) 0.84 K/uL Eosinophils # (Auto) 0.34 K/uL Basophils # (Auto) 0.06 K/uL RDW Standard Deviation 41.9 fL RDW Coefficient of Variation 13.3 % Immature Granulocyte % (Auto) 0.5 % Immature Granulocyte # (Auto) 0.04 K/uL Sodium Level 137 mmol/L Potassium Level 4.1 mmol/L Chloride Level 99 mmol/L Carbon Dioxide Level 32 mmol/L Anion Gap 6.0 mmol/L Blood Urea Nitrogen 25 mg/dl Creatinine 1.28 mg/dl Est Creatinine Clear Calc Drug Dose 115.1 ml/min Estimated GFR () 77.8 Estimated GFR (Non- 67.1 BUN/Creatinine Ratio 19.4 Random Glucose 129 mg/dl Calcium Level 9.2 mg/dl Imaging: Chest x-ray shows good left ventricular lead position, no pneumothorax EKG: AV pacing with appropriate biventricular pacing Telemetry reviewed: Appropriate biventricular pacing ICD evaluation: Excellent pacing and sensing characteristics. Assessment and Plan 1. Postop upgrade to biventricular ICD (placement of LV lead): He is doing well postop grade, the device is working well. He has minor incisional discomfort. It is too early to tell whether he feels any better. I will arrange a follow-up for [address] it in his discharge paperwork. He can go home any time as far as I am concerned. Thank you for allowing me to participate in his care.
[2017-08-07 11:57] VITALS: BP 120/74; PULSE 63; TEMP 37.1; O2SAT 95
[2017-08-07 15:47] VITALS: BP 118/68; PULSE 62; TEMP 37; O2SAT 95
[2017-08-07 19:33] VITALS: BP 103/58; PULSE 67; TEMP 37.2; O2SAT 96
[2017-08-07 23:30] VITALS: BP 123/76; PULSE 68; TEMP 36.9; O2SAT 95
[2017-08-08] MEDS: MoRPHine SULFATE 2 MG/ML CARP IV PRN ×4 (00:20→11:56)
[2017-08-08 03:39] VITALS: BP 122/72; PULSE 67; TEMP 36.4; O2SAT 95
[2017-08-08 05:54] VITALS: PULSE 76; O2SAT 94
[2017-08-08] MEDS: HEPARIN SOD 5000 UNIT/0.5 ML CARP SQ SCH ×2 (06:00→14:00)
[2017-08-08 07:28] VITALS: BP 125/75; PULSE 61; TEMP 37.2; O2SAT 96
[2017-08-08] MEDS: ASPIRIN 81 MG ECTAB PO SCH (07:46)
[2017-08-08] MEDS: SPIRONOLACTONE 25 MG TAB PO SCH (07:46)
[2017-08-08] MEDS: TAMSULOSIN HCL 0.4 MG CAP PO SCH (07:46)
[2017-08-08] MEDS: METOPROLOL SUCC 50MG EXT REL TAB PO SCH (07:47)
[2017-08-08] MEDS: ATORVASTATIN 10 MG TAB PO SCH (07:47)
[2017-08-08] MEDS: POTASSIUM CHLORIDE 20 MEQ TABCR PO SCH (07:47)
[2017-08-08] MEDS: FUROSEMIDE 40 MG TAB PO SCH (07:47)
--- NOTE | 2017-08-08 07:52 | Family Medicine Progress Note ---
Progress Note Date of Service Aug 08, 2017. Medications Current Inpatient Medications Medications (Trade) Dose Ordered Sig/Ida Route Start Time Stop Time Status Last Admin Dose Admin Heparin Sodium (Porcine) (Heparin Sq 5000 Unit/0.5ml) 5,000 unit Q8H SQ 08/01/17 22:00 08/31/17 21:59 08/07/17 21:33 5,000 UNIT Al Hydrox/Mg Hydrox/Simethicone (Maalox Max Susp) 15 ml Q4H PRN PO 08/01/17 20:00 08/31/17 19:59 Magnesium Hydroxide (Milk Of Magnesia Susp) 30 ml Q12H PRN PO 08/01/17 20:00 08/31/17 19:59 Zolpidem Tartrate (Ambien Tab) 5 mg HSZ PRN PO 08/01/17 20:00 08/31/17 19:59 Ondansetron HCl (Zofran Inj) 4 mg Q6H PRN IV 08/01/17 20:00 08/31/17 19:59 08/06/17 21:26 4 MG Polyethylene (Miralax Powder Packet) 17 gm DAILY PRN PO 08/01/17 20:00 08/31/17 19:59 Aspirin (Ecotrin Tab) 81 mg DAILY PO 08/02/17 09:00 09/01/17 08:59 08/08/17 07:46 81 MG Atorvastatin Calcium (Lipitor Tab) 10 mg DAILY PO 08/02/17 09:00 09/01/17 08:59 08/08/17 07:47 10 MG Furosemide (Lasix Tab) 100 mg DAILY PO 08/02/17 09:00 09/01/17 08:59 08/08/17 07:47 100 MG Potassium Chloride (Klor-Con Tab) 20 meq DAILY PO 08/02/17 09:00 09/01/17 08:59 08/08/17 07:47 20 MEQ Spironolactone (Aldactone Tab) 25 mg DAILY PO 08/02/17 09:00 09/01/17 08:59 08/08/17 07:46 25 MG Tamsulosin HCl (Flomax Cap) 0.4 mg DAILY PO 08/02/17 09:00 09/01/17 08:59 08/08/17 07:46 0.4 MG Miscellaneous Information (Order Awaiting Action) 1 ea QS N/A 08/02/17 00:00 09/01/17 00:00 Miscellaneous (Iv Fluids Completed) 1 ea PRN PRN N/A 08/01/17 20:30 08/01/18 20:29 08/02/17 20:45 1 EA Morphine Sulfate (MoRPHine SULFATE INJ) 2 mg Q2H PRN IV 08/01/17 22:45 08/15/17 22:44 08/08/17 07:50 2 MG Metoprolol Succinate (Toprol Xl Tab) 100 mg BID PO 08/02/17 21:00 09/01/17 20:59 08/08/17 07:47 100 MG Acetaminophen (Tylenol Tab) 650 mg Q4H PRN PO 08/06/17 14:45 09/05/17 14:44 Ketorolac Tromethamine (Toradol Tab) 10 mg Q6H PRN PO 08/06/17 14:45 08/11/17 14:44 08/07/17 19:48 10 MG Objective Vital Signs Date Time Temp Pulse Resp B/P (MAP) Pulse Ox O2 Delivery O2 Flow Rate FiO2 08/08/17 07:28 37.2 61 22 125/75 (92) 96 Room Air 08/08/17 05:54 76 94 08/08/17 04:00 CPAP 08/08/17 03:39 36.4 67 17 122/72 (89) 95 CPAP 08/07/17 23:59 CPAP 08/07/17 23:30 36.9 68 18 123/76 (92) 95 Room Air 08/07/17 20:00 Room Air 08/07/17 19:33 37.2 67 20 103/58 (73) 96 Room Air 08/07/17 16:00 Room Air 08/07/17 15:47 37.0 62 20 118/68 (85) 95 Room Air 08/07/17 12:00 Room Air 08/07/17 11:57 37.1 63 22 120/74 (89) 95 Room Air Diffusion Mask 08/07/17 08:00 Room Air Resident Tracking Resident Involvement: Resident Care Provided Care Provided: Adult Hospital Medicine (inpatient)
--- NOTE | 2017-08-08 10:20 | Cardiology Follow-Up ---
Subjective Date of Service: Aug 08, 2017. Pt evaluation today including: conversation w/ patient, physical exam, chart review, lab review, review of studies, review of inpatient medication list, conversation w/ attending History of Present Illness Patient is currently resting comfortably in bed. He reports that he did about 5- 6 laps total around the hallway yesterday. He reports that he had dyspnea and diaphoresis with walking about half the length of the hallway. He denies shortness of breath at rest or orthopnea. He denies any lower extremity edema. He denies chest pain or palpitations. He notes lightheadedness with changing positions, which lasts a couple of seconds in duration. He denies syncope. We did 2 laps around the hallway together this morning. He was able to walk 1.5 laps before briefly stopping to catch his breath. He was then able to resume walking. He was able to talk comfortably throughout the entire 2 laps and appeared to have no difficulty with ambulating. Social History Smoking Status: Former Smoker Objective Vital Signs Past 12 Hours Date Time Temp Pulse Resp B/P (MAP) Pulse Ox O2 Delivery O2 Flow Rate FiO2 08/08/17 08:29 Room Air 08/08/17 07:28 37.2 61 22 125/75 (92) 96 Room Air 08/08/17 05:54 76 94 08/08/17 04:00 CPAP 08/08/17 03:39 36.4 67 17 122/72 (89) 95 CPAP 08/07/17 23:59 CPAP 08/07/17 23:30 36.9 68 18 123/76 (92) 95 Room Air Last Recorded Weight-Kilograms: 153.000 Physical Exam Constitutional: Alert, oriented, in no acute distress HEENT: Head is atraumatic and normocephalic. EOMs intact. Sclera anicteric. Face is symmetric. No perioral cyanosis. Mucous membranes moist. Neck: Supple, no appreciable JVD Pulmonary: Normal respiratory effort, clear to auscultation bilaterally Cardiac: Regular rate and rhythm, normal S1 and S2, no gallops, no rubs. No obvious murmurs Extremities: No edema. No clubbing or cyanosis. Pulses intact Abdomen: Obese. Normal bowel sounds, soft, non-tender, no abdominal mass palpated Skin: Normal skin color, turgor, and pigmentation, no rash, no skin lesions Neurological: Oriented to person, place, and time Data Telemetry reviewed: Biventricular pacing Assessment and Plan ASSESSMENT/PLAN: 1. Hypertrophic cardiomyopathy status post myomectomy: Catheterization showed no significant LVOT/AoValve gradient. He has an ICD in place. Continue metoprolol succinate 200 mg BID. 2. Reduced LV systolic function: This could be secondary to hypertrophic cardiomyopathy. Coronary angiography showed normal coronary arteries. Continue beta pipe therapy. 3. Chronic diastolic congestive heart failure: He appears euvolemic. Continue current diuretic therapy. 4. Complete heart block status post biventricular ICD: His device check yesterday showed excellent sensing and pacing characteristics. 5. Exertional dyspnea: He reports shortness of breath and diaphoresis with ambulating long term down the hallway yesterday, but we did 2 laps together today , and he was able to walk 1.5 laps before pausing very briefly to catch his breath before resuming walking. He likely has some degree of deconditioning related to being hospitalized for a week. His exercise tolerance should gradually improve over time as he is able to be more active. No additional cardiovascular testing or intervention recommended in this regard. 6. Hypertension: BP well controlled. Continue current therapy. 7. Dyslipidemia: Continue statin therapy. 8. Disposition: He has a hospital follow-up appointment in our office on 2017. He has also been scheduled an appointment on 09/09/2017 with his specialist, [place]os, [place] [facility] [place] Addendum by Cardiology attending: Patient was seen and examined. Agree with above with following additions. He was able to tolerate ambulation in the hallway without further chest discomfort, palpitations. He did have some dyspnea but was in no acute distress as was accompanied by Kayleigh Antonio PA-C. Overall his symptoms have improved. He denies syncope. Exam notable for: General: No acute distress. Cardiac: Regular. No audible murmur. Lungs: Clear to auscultation bilaterally. ASSESSMENT/PLAN: 1. Hypertrophic cardiomyopathy: Continue beta-pipe. If he continues to have symptoms of diaphoresis and shortness of breath, could consider starting diltiazem however etiology of his symptoms are not clear at this time but could be potentially attributed to his hypertrophic cardiomyopathy. Follow[place] [facility] [place] noted [place]. 2. Reduced LV systolic function: Hopefully LV systolic function improved with biventricular pacing. Repeat echo in the future. 3. Palpitations: Etiology uncertain. He was becoming tachycardic at times but these have resolved with titration of beta-pipe. Continue current dose. 4. Chronic diastolic CHF: He appears euvolemic. No changes made. 5. Disposition: Wound check in the office tomorrow as arranged by Dr. Medrano. ICD evaluation next month. Keep scheduled appointment with me as well. [facility]. Patient care discussed with Dr. Mera the primary hospitalist service.
[2017-08-08 12:12] VITALS: BP 126/71; PULSE 66; TEMP 37.2; O2SAT 98
[2017-08-08] MEDS ORDERED: TPRSR50 PO (12:56)
--- NOTE | 2017-08-08 13:17 | Discharge Summary ---
Discharge Summary Date of Service Aug 08, 2017. Discharge Summary Admission Date: Aug 05, 2017 at 13:19 Discharge Date: Aug 08, 2017 Discharge Disposition: Home Principal Diagnosis: Hypertrophic cardiomyopathy Problems/Secondary Diagnoses: - Severe dyssynchrony - Chronic congestive heart failure - Hypertension - Pulmonary nodules - Hepatic steatosis Immunizations: Have You Had Influenza Vaccine: Yes History of Tetanus Vaccine?: Yes History of Pneumococcal: Yes History of Hepatitis B Vaccine: No Procedures: 01Aug2017 - CHEST ONE VIEW PORTABLE IMPRESSION: 1. Top normal cardiac size with evidence of volume overload. No mirza pulmonary edema. 2. Mildly low lung volumes. 01Aug2017 - CT CHEST COMBO ANGIO DISSECTION IMPRESSION: 1. No evidence of acute aortic injury. No acute intrathoracic pathology. 2. 2 solid pulmonary nodules in the left lung, the largest measuring 5 mm follow-up per Gabriel Society 2017 recommendations below. 3. Main pulmonary artery enlargement suggests pulmonary hypertension. 4. Postsurgical changes of sternotomy. 5. Hepatic steatosis. 02Aug2017 - Transthoracic echocardiogram -- Conclusions -- 1. Normal left ventricular size with mildly to moderately reduced systolic function. EF 40-45%. Apical akinesis. Global hypokinesis with sparing of the inferolateral wall. Severe asymmetric hypertrophy of the anteroseptum, consistent with hypertrophic cardiomyopathy. 2. Limited 2-D study with limited spectral Doppler. 3. Poor image quality, enhanced with IV Definity. 4. Compared to prior study on 04/30/2017, LV systolic function has declined. 03Aug2017 - ULTRASOUND RIGHT UPPER QUADRANT ABDOMEN IMPRESSION: 1. No acute sonographic abnormality is identified. No gallstones are seen. 2. Hepatic steatosis. 3. The pancreas was not well visualized. 05Aug2017 - Coronary Angiography, Left Heart Cath Summary: 1. Angiographically normal coronary arteries. 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 No significant LVOT/AoValve gradient. Normal intracardiac filling pressure 06Aug2017 - Procedure(s) Performed - Left subclavian venogram - Coronary sinus angiogram - LV lead implantation - Dual-chamber ICD explantation - Biventricular ICD implantation ([employer] ? model number [id number], serial number [id number]). 07Aug2017 - CHEST 2 VIEWS ROUTINE CLINICAL HISTORY: Chest x-ray for pacemaker placement FINDINGS: A left subclavian pacer/defibrillator is identified. There is no pneumothorax. There is no focal pulmonary consolidation. There is no failure. There are no pleural effusions. The electrode position is unremarkable. IMPRESSION: No evidence of pneumothorax. Consultations: [id number] - Cardiology a/p on date of discharge ASSESSMENT/PLAN: 1. Hypertrophic cardiomyopathy status post myomectomy: Catheterization showed no significant LVOT/AoValve gradient. He has an ICD in place. Continue metoprolol succinate 200 mg BID. 2. Reduced LV systolic function: This could be secondary to hypertrophic cardiomyopathy. Coronary angiography showed normal coronary arteries. Continue beta pipe therapy. 3. Chronic diastolic congestive heart failure: He appears euvolemic. Continue current diuretic therapy. 4. Complete heart block status post biventricular ICD: His device check yesterday showed excellent sensing and pacing characteristics. 5. Exertional dyspnea: He reports shortness of breath and diaphoresis with ambulating half-way down the hallway yesterday, but we did 2 laps together today , and he was able to walk 1.5 laps before pausing very briefly to catch his breath before resuming walking. He likely has some degree of deconditioning related to being hospitalized for a week. His exercise tolerance should gradually improve over time as he is able to be more active. No additional cardiovascular testing or intervention recommended in this regard. 6. Hypertension: BP well controlled. Continue current therapy. 7. Dyslipidemia: Continue statin therapy. 8. Disposition: He has a hospital follow-up appointment in our office on 2017. He has also been scheduled an appointment on 09/09/2017 with his specialist, Dr. Matos, in [facility] [place]. <Electronically signed by Kayleigh Antonio PA-C> Medication Reconciliation New Medications: Metoprolol Succinate (Metoprolol Succinate ER) 50 Mg Tabcr 100 MG PO BID for 30 Days, #120 TAB 0 Refills Continued Medications: Aspirin (Aspirin Ec) 81 Mg Tab 81 MG PO DAILY Atorvastatin (Lipitor) 10 Mg Tab 10 MG PO DAILY, TAB Fluticasone Furoate-Vilanterol (Breo Ellipta) 1 Inh Inh 1 PUFF INH DAILY Furosemide (Lasix) 40 Mg Tab 100 MG PO DAILY, TAB Potassium Ext Rel (Klor-Con) 20 Meq Tabcr 20 MEQ PO DAILY, TAB Spironolactone (Aldactone) 25 Mg Tab 25 MG PO DAILY, TAB Tamsulosin Hcl (Flomax) 0.4 Mg Cap 0.4 MG PO DAILY, CAP Discontinued Medications: Metoprolol Tartrate (Lopressor) (Lopressor) 50 Mg Tab 25 MG PO BID, TAB Discharge Exam General Appearance: Awake, alert & oriented, speaking easily, appears comfortable in general even when sitting on side of bed, in NAD. CV: +S1S2 RRR, no murmur. Left upper chest bandage in place, c/d/i. Midline sternotomy scar. Pulm: Clear to auscultation throughout. Abdomen: +BS, soft, non-tender, non-distended. Extremities: No pedal edema or calf tenderness. Moving all extremities naturally and easily. Dressing off of right wrist cath access, no present hematoma. Distal RUE sensation intact, normal cap refill. Neuro: No gross neuro deficits. Review of Systems: Constitutional: No fever, No chills Respiratory: + shortness of breath, No cough Cardiovascular: No edema Abdomen: No pain, No nausea, No vomiting, No diarrhea Hospital Course HPI at time of admission on Aug 01, 2017 at 19:28 - 46M with a PMHx of CHF with AICD, MEENU p/w chest pain starting yesterday evening at rest. The pain is worse on exertion. Pt describe the pain as a sharp and stabbing (as if there is air in his chest that he cannot get out) that radiates into his back to a point between his scapula. He states that he can feel his heart beating and even saw pulsations on his abdomen (confirmed by daughter and spouse who were in the room in the ER). Patient has never had sensation like this before, he got worried because of his extensive cardiac history and called the [facility] cardiology office and they advised him to come to the ER. - Patient was recently seen for lower back pain - while he still has back pain, the pain isn't hurting him that much. - At rest patient still has some feeling of having trapped air in his chest but there is no radiation of the pain to his scapula. Discharge summary on 08Aug2017 46 yo male admitted on 01Aug2017 for chest pain. PMH: Hypertrophic cardiomyopathy s/p myectomy and MV repair on 02Jan2016 [place] [facility] [place] , dual-chamber ICD implantation on 02May2017, complete heart block s/p dual- chamber ICD, diastolic CHF, HTN, HLD, sleep apnea on CPAP, low back pain, BPH, closed fracture of cervical spine, s/p appendectomy. Chest pain / palpitations: Occurs with exertion, virtually resolved with rest. Minimal TnI elevation, noted serially, is near his baseline and may be due to the HCM. From a pulm standpoint, no noted fevers, SOB, has clear lungs on exam , and both CXR + CTA chest did not note any acute pulmonary findings (but see nodule mention below). Current chest symptoms may be due to his HCM. Cardiology onboard. Patient is now s/p cath 02Apr which was clean (see full report). Now s/p biventricular ICD (re)placement 03Apr. See their notes for full discussion, including discharge plan as noted above. - Patient continues to have some level of discomfort with exertion, resolved at rest. Had a lengthy discussion with patient that he seems safe to be discharged home at this time, with cardiology follow up as noted, with the understanding of emergent return precautions if symptoms were to change. Hypertrophic cardiomyopathy (HCM): cardiac echo noted EF 40-45% with some near-global hypokinesis (but poor image quality). Non-ischemic in nature based on [id number] cath. Cardiology changed to metoprolol succinate (Toprol XL) with increased dose of 100 mg BID. Chronic diastolic CHF: On home lasix 100 mg daily. No current SOB or peripheral edema to suggest volume overload. No acute inpatient changes. Complete heart block: S/p replacement to biventricular ICD as noted above. BPH: History of same. On home flomax. No acute inpatient changes. HTN and HLD: History of same. See above BB dosing. On home lipitor 10 mg and Aldactone 25 mg. Low back pain: Lumbar spine MRI on 26Jul2017 showed annular fissure with disc bulge and mild facet arthropathy at L5-S1 without spinal stenosis. Tylenol prn for pain here. No acute inpatient changes. Pulmonary nodules: Noted on 29Jul CTA chest. Needs related PCM follow-up at time of discharge. Hepatic steatosis: Noted on 29Jul CTA chest. 31Jul gallbladder u/s was unremarkable with exception of the same. The steatosis needs related PCM follow -up at time of discharge. Resident Physician Supervision Note: I interviewed and examined the patient. Discussed with Dr. Handbury and agree with findings and plan as documented in the note. Any exceptions or clarifications are listed here: None Documented By: Clarke Ritter still feeling some sx w exertion but wants to go home and feels safe going home vitals noted and stable, nad, pt seen walking halls and no sob/sweats overtly hypertrophic cardiomyopathy - see cardiology input. difficult situation with severe underlying cardiomyopathy. at this point stable/safe, but still symptomatic - he understands this. additional calcium channel pipe might be helpful, but better to wait for hopeful impmrovmeent after pacer and ongoing outpatient cardiology f/u. stable for home, meds as above, seeing cardiology tomorrow Total Time Spent: Greater than 30 minutes This includes examination of the patient, discharge planning, medication reconciliation, and communication with other providers. Discharge Instructions Please refer to the electronic Patient Visit Report (Discharge Instructions) for additional information. Follow-Up Cardiology: - [id number] at 10:00 for wound check. - [id number] for follow up. - [id number] Dr[address] Matos at [facility] [place]. - [id number] for ICD follow up. Additional Copies To Stephen Medrano M.D.; Nicholas Matos M.D.; Alfred Davis M.D. Resident Tracking Resident Involvement: Resident Care Provided Care Provided: Adult Hospital Medicine (inpatient)
--- NOTE | 2017-08-08 13:24 | Discharge Instructions ---
Discharge Instructions Date of Service Aug 08, 2017. Admission Reason for Admission: Chest Pain Discharge Discharge Diagnosis / Problem: Hypertrophic cardiomyopathy Discharge Goals Goal(s): Improve function, Improve disease control Activity Recommendations Activity Limitations: per Instructions/Follow-up section . Instructions / Follow-Up Instructions / Follow-Up You were admitted to the hospital for further evaluation of your chest symptoms. As you are well aware, you underwent a cardiac cath and replacement of your pacemaker / defibrillator. - Please follow the instructions of your cardiologists on what level of activity you can safely perform in the near-term following these procedures. - You have the following appointments scheduled: --- August 09 in the [facility] Cardiology clinic for a wound check. --- August 19 in the [facility] Cardiology clinic for ongoing follow up. --- September [address] Matos at [facility]. --- September 18 in the [facility] Cardiology clinic for ongoing follow up. - Your CT scans during your visit noted incidental findings of two pulmonary ( lung) nodules and some imaging evidence of hepatic steatosis. Please follow up with your primary care provider as soon as possible for further discussion and evaluation of the same, as well as for overall continuity of care regarding the cardiac care provided here as an inpatient. - Please return to the emergency department if you develop any new or worsening chest pains / chest symptoms, develop shortness of breath, or with any other emergent concerning symptoms to you. Current Hospital Diet Patient's current hospital diet: AHA Diet (Heart Healthy), Low Sodium Diet (2gm Na) Discharge Diet Recommended Diet: AHA Diet (Heart Healthy), Low Sodium Diet (2gm Na) Pending Studies Studies pending at discharge: no Laboratory Results Lipid Panel Test 07/08/17 15:52 Range/Units Triglycerides Level 199 H 0-150 mg/dl Cholesterol Level 216 H 0-200 mg/dl HDL Cholesterol 40 mg/dl Cholesterol/HDL Ratio 5.4 LDL Cholesterol, Calculated 136 mg/dl Medical Emergencies . Who to Call and When: Medical Emergencies: If at any time you feel your situation is an emergency, please call 911 immediately. . Non-Emergent Contact Non-Emergency issues call your: Primary Care Provider, Plastic Surgery Assistant .
[2017-08-08 13:34] VITALS: BP 126/71; PULSE 66; TEMP 37.2; O2SAT 98
== END 2017-08-08 14:54 | disposition home or self-care (01) | DRG 215 ==
LOC: EDBD 16:11 → C.EDB 16:15 → C.2T 20:01 → ENRESERV 20:08 → OBSVTOIN 08-05 13:19
PROVIDERS: ADMIT Internal Medicine; ATTEND Family Medicine
PROC: 4A023N7 Measurement of Cardiac Sampling and Pressure, Left Heart, Percutaneous Approach (ICD-10-PCS; principal; 2017-08-05 15:00)
PROC: B211YZZ Fluoroscopy of Multiple Coronary Arteries using Other Contrast (ICD-10-PCS; principal; 2017-08-05 15:00)
PROC: 02H Heart and Great Vessels, Insertion (ICD-10-PCS; 2017-08-06)
PROC: 0JH608Z Insertion of Defibrillator Generator into Chest Subcutaneous Tissue and Fascia, Open Approach (ICD-10-PCS; 2017-08-06)
PROC: 02H Heart and Great Vessels, Insertion (ICD-10-PCS; 2017-08-06)
PROC: 0JPT0PZ Removal of Cardiac Rhythm Related Device from Trunk Subcutaneous Tissue and Fascia, Open Approach (ICD-10-PCS; 2017-08-06)
PROC: 02H Heart and Great Vessels, Insertion (ICD-10-PCS; 2017-08-06)
DX: I42.2 Other hypertrophic cardiomyopathy (principal); I44.2 Atrioventricular block, complete; I50.32 Chronic diastolic (congestive) heart failure; I20.9 Angina pectoris, unspecified; E78.5 Hyperlipidemia, unspecified; G47.33 Obstructive sleep apnea (adult) (pediatric); I11.0 Hypertensive heart disease with heart failure; N40.0 Benign prostatic hyperplasia without lower urinary tract symptoms; M54.5 Low back pain; R00.2 Palpitations; K76.0 Fatty (change of) liver, not elsewhere classified; Z95.2 Presence of prosthetic heart valve; I25.2 Old myocardial infarction; Z79.82 Long term (current) use of aspirin; Z95.810 Presence of automatic (implantable) cardiac defibrillator; Z88.1 Allergy status to other antibiotic agents; Z87.891 Personal history of nicotine dependence; Z80.9 Family history of malignant neoplasm, unspecified; Z83.3 Family history of diabetes mellitus; Z82.49 Family history of ischemic heart disease and other diseases of the circulatory system

== ENCOUNTER 2018-06-28 22:17 | Inpatient (IN) ==
--- NOTE | 2018-06-28 23:01 | XRay Report ---
XR chest 1V portable HISTORY: 47 years-old Male Chest Pain acute atypical chest pain COMPARISON: Chest radiograph 04/08/2018 TECHNIQUE: Portable AP view of the chest FINDINGS: Cardiac silhouette is enlarged, unchanged. Prior median sternotomy. Left subclavian pacer/AICD appear s unchanged. No pneumothorax, pleural effusion, focal airspace consolidation or overt pulmonary edema . Bones of the chest appear grossly intact. IMPRESSION: Cardiomegaly without acute process. The above report was generated using voice recognition software. It may contain grammatical, syntax o r spelling errors. Electronically signed by: Tom Soriano M.D. 06/28/2018 11:00 PM
[2018-06-28 23:04] LABS: Basophils # (auto) 0.06 K/uL (0-0.2); Eosinophils # (auto) 0.07 K/uL (0-0.5); Eosinophils % (auto) 1.2 %; Hematocrit (blood only) 44.7 % (42-52); Immature Granulocytes # (auto) 0.02 K/uL (0.00-0.02); Immature Granulocytes % (auto) 0.3 %; Lymphocytes # (auto) 1.39 K/uL (1.2-3.4); Lymphocytes % (auto) 23.2 %; Mean Corpuscular Hgb Conc 35.8 g/dL (32-36); Mean Corpuscular Volume 85.1 fL (80-100); Mean Platelet Volume 12.4 fL (7.4-10.4); Monocytes # (auto) 0.75 K/uL (0.11-0.59); Monocytes % (auto) 12.5 %; Neutrophils # (auto) 3.71 K/uL (1.4-6.5); Neutrophils % (auto) 61.8 %; Platelet Count 183 K/uL (130-400); RDW Coefficient of Variation 14.1 % (11.5-14.5); RDW Standard Deviation 43.4 fL (36.4-46.3); Red Blood Count 5.25 M/uL (4.7-6.1)
[2018-06-28 23:36] LABS: Albumin Globulin Ratio 1.1 (0.9-2); BUN Creatinine Ratio 15.8 (10-20); Bilirubin,Total 0.7 mg/dl (0.2-1); Calcium 9.3 mg/dl (8.5-10.1); Creatinine Clr Calc Pharmacy 98.6 ml/min; Est GFR (African American) 62.8; Est GFR (Non-African American) 54.2; Globulin 3.7 gm/dl (2.5-4.0); Total Protein 7.7 gm/dl (6.4-8.2); Troponin I 0.169 ng/ml (0-0.045)
[2018-06-28 23:57] LABS: D Dimer 270 ug/L FEU (0-500)
[2018-06-28] MEDS ORDERED: NovoLIN-R INSULIN PER UNIT CHARGE IV STA (23:58)
[2018-06-28] MEDS ORDERED: SODIUM CHLORIDE 0.9% 250 ML IV ONE (23:58)
[2018-06-29] MEDS ORDERED: FAMOTIDINE 20MG/5ML IV PUSH IV STA (00:10)
[2018-06-29 00:30] LABS: Magnesium 2.1 mg/dl (1.8-2.4)
[2018-06-29] MEDS ORDERED: fentaNYL citrate 100 MCG/2 ML VIAL IV STA (00:59)
[2018-06-29] MEDS ORDERED: POLYETHYLENE (MIRALAX) 17 GM PACK PO PRN (02:32)
[2018-06-29] MEDS ORDERED: GLUCOSE 10 TABS/TUBE PO PRN (02:32)
[2018-06-29] MEDS ORDERED: DEXTROSE 50% 50 ML SYRINGE IV PRN (02:32)
[2018-06-29] MEDS ORDERED: MAGNESIUM HYDROXIDE SUSP 30 ML UDC PO PRN (02:32)
[2018-06-29] MEDS ORDERED: ACETAMINOPHEN 1000 MG/100 ML IV IV PRN (02:32)
[2018-06-29] MEDS ORDERED: CARBOHYDRATES FOR HYPOGLYCEMIA PO PRN (02:32)
[2018-06-29] MEDS ORDERED: GLUCAGON FOR INJ 1 MG VIAL SQ PRN (02:32)
[2018-06-29] MEDS ORDERED: ALUMINUM/MAGNESIUM SUSP 30 ML UDC PO PRN (02:32)
[2018-06-29] MEDS ORDERED: GLUCOSE 40% GEL 15 GM TUBE PO PRN (02:32)
[2018-06-29 02:51] LABS: Basophils # (auto) 0.03 K/uL (0-0.2); Basophils % (auto) 0.6 %; Eosinophils % (auto) 1.9 %; Hematocrit (blood only) 42.9 % (42-52); Hemoglobin 15.2 g/dL (14.0-18.0); Immature Granulocytes # (auto) 0.02 K/uL (0.00-0.02); Immature Granulocytes % (auto) 0.4 %; Lymphocytes # (auto) 1.77 K/uL (1.2-3.4); Lymphocytes % (auto) 33.1 %; Mean Corpuscular Hgb Conc 35.4 g/dL (32-36); Mean Corpuscular Volume 85.5 fL (80-100); Mean Platelet Volume 11.4 fL (7.4-10.4); Monocytes # (auto) 0.67 K/uL (0.11-0.59); Monocytes % (auto) 12.5 %; Neutrophils # (auto) 2.75 K/uL (1.4-6.5); Neutrophils % (auto) 51.5 %; Platelet Count 163 K/uL (130-400); RDW Coefficient of Variation 14.3 % (11.5-14.5); RDW Standard Deviation 43.8 fL (36.4-46.3); Red Blood Count 5.02 M/uL (4.7-6.1); White Blood Count 5.34 K/uL (4.8-10.8)
[2018-06-29 03:05] LABS: INR 1.1 (0.9-1.1); Partial Thromboplastin Time 26.5 Seconds (21.0-31.0); Prothrombin Time 11.1 Seconds (9.0-12.0)
[2018-06-29 03:10] LABS: Albumin Level 3.7 gm/dl (3.4-5.0); BUN Creatinine Ratio 19.4 (10-20); Calcium 8.4 mg/dl (8.5-10.1); Creatinine Clr Calc Pharmacy 126.4 ml/min; Est GFR (African American) 86.1; Est GFR (Non-African American) 74.3; Potassium 3.8 mmol/L (3.5-5.1)
[2018-06-29 03:12] LABS: Albumin Globulin Ratio 1.1 (0.9-2); Bilirubin,Total 0.6 mg/dl (0.2-1); Globulin 3.3 gm/dl (2.5-4.0)
[2018-06-29 03:27] LABS: Troponin I 0.17 ng/ml (0-0.045)
[2018-06-29] MEDS ORDERED: PHARMACY GLYCEMIC MGMT CONSULT PRN (03:40)
[2018-06-29] MEDS ORDERED: INSULIN ASPART 100 UNITS/ML 3 ML PEN SC STA (03:45)
[2018-06-29] MEDS ORDERED: INSULIN GLARGINE SOLOSTAR 100 UNITS/ML 3 ML PEN SC STA (03:47)
--- NOTE | 2018-06-29 05:13 | History & Physical Report ---
Date of Service June 29, 2018 Assessment & Plan (1) Chest pain: Chest pain with dyspnea on exertion/elevated troponin/hypertrophic cardiomyopathy/hypertension/history of VT-- The patient will be admitted to telemetry for serial cardiac enzymes, serial EKG's, and cardiac rhythm monitoring. Continue aspirin, diltiazem XR, metoprolol succinate and potassium chloride. Last ECHO on 01/22/18 showed an EF 65-70% Consult cardiology Present on Admission?: Yes (2) Dyspnea on exertion: See above Present on Admission?: Yes (3) HTN (hypertension): See above Present on Admission?: Yes (4) Hypertrophic cardiomyopathy: 2D echocardiogram as noted above from 01/22/18. Present on Admission?: Yes (5) Elevated troponin: Will follow serial troponins as noted above. Troponin of 0.169 upon admission at this point, looks to be more of a supply demand mismatch. Present on Admission?: Yes (6) Hyperglycemia due to type 2 diabetes mellitus: Glucose was 517 upon admission. He did receive 8 units of regular insulin IV from the ED, with improvement to 333. Patient reports his blood sugars have not been well controlled over the past weeks, but does not know why. For now, hold Januvia and metformin. Place on Accu-Cheks before meals and at bedtime with NovoLog coverage per scale. Check a HbA1c. Present on Admission?: Yes (7) Hyperlipidemia: Continue atorvastatin 10 mg daily. Check a fasting lipid panel. Present on Admission?: Yes (8) Acute kidney injury: Creatinine was 1.52 upon admission, with most recent being in the 1.14- 1.28 range. Follow serial laboratories. Present on Admission?: Yes History of Present Illness Chief Complaint: The patient presents to the emergency department with chest pain, shortness of breath and elevated blood sugars. Primary Care Provider: Alfred Davis The patient is a 47-year-old male who presents to the emergency department with chest pain, shortness of breath and uncontrolled blood sugars worsening over the past week. He did see his PCP recently and had and medications adjusted somewhat, but has not had significant improvement. He reports taking his medications as directed. He has not had any significant change in his dietary or exercise habits. Allergies Allergy/AdvReac Type Severity Reaction Status Date / Time erythromycin base Allergy Mild Unknown Verified 06/29/18 00:00 Home Medications Home Medications Medication Instructions Recorded Confirmed Type aspirin 81 mg PO DAILY 01/21/18 06/28/18 History atorvastatin 10 mg PO DAILY 01/21/18 06/28/18 History furosemide 80 mg PO BID 01/21/18 06/28/18 History methocarbamol 500 - 1,000 mg PO TID PRN 01/21/18 06/29/18 History metoprolol succinate 100 mg PO UD 01/21/18 06/29/18 History potassium chloride 20 meq PO DAILY 01/21/18 06/28/18 History diltiazem HCl [DILT-XR] 120 mg PO DAILY 05/16/18 06/28/18 History metformin 1,000 mg PO BID 06/28/18 06/28/18 History sitagliptin [Januvia] 25 mg PO DAILY 06/28/18 06/28/18 History Past Med/Surg History Medical History Myocardial infarction (Resolved) Closed fracture of cervical spine (Resolved Unknown) Cardiomyopathy Hypoxia Pleuritis Acute bronchitis (Acute) Acute on chronic diastolic (congestive) heart failure Intractable back pain Back pain Elevated troponin (Acute) Chest pain HLD (hyperlipidemia) DVT prophylaxis Palpitations (Acute) CHF (congestive heart failure) Hypertrophic cardiomyopathy (Chronic Unknown) History of pacemaker Arrhythmia Arthritis Cardiac murmur Chronic back pain History of cardiac arrest History of complete heart block Osteoarthritis Presence of combination internal cardiac defibrillator (ICD) and pacemaker [place] [facility] [place] [facility] - FOLLOWS W/ DR. SON - DEVICE HAS BEEN UPGRADED SINCE Sleep apnea CPAP Valvular heart disease Surgical History History of appendectomy History of cardiac cath X 4 [facility] - [place] 2017 - PACER MALFUNCTION - NO STENTS/ ANGIOPLASTY - FOLLOWS W/ DR. SAWYER History of esophagogastroduodenoscopy (EGD) History of mitral valve repair History of open heart surgery 12/2015 - [facility] – [place] - SEPTAL MYECTOMY W/ MITRAL VALVE REPAIR - FOLLOWS W/ DR. SON Family History Mother Family history of reaction to anesthesia PONV Grandfather (Maternal) Family history of diabetes mellitus Grandmother (Maternal) Family history of diabetes mellitus Social History Current Living Situation: Significant Other Current Living Situation Comment: LIVES W/ MOTHER Other Information That Helps Us Care for You: No Feels Safe at Home: Yes Safety Concerns: Feels Safe At This Time Smoking Status: Former smoker Tobacco Type: smokeless tobacco Do You Dip or Chew Tobacco: Yes Hx Alcohol Use: Yes Alcohol type: wine and hard liquor Alcohol Intake Frequency : holidays/special occasions only Hx Substance Use: No Beliefs That Will Affect Care: None Preferred Language: Greek Communication Ability: Effective Art Sales Consultant Required: No Review of Systems The patient denies cough, lower extremity swelling, sore throat, fevers, chills , sweats, nausea, vomiting, diarrhea , constipation, abdominal pain, pelvic pain , blood in urine or stool, dysuria, urinary frequency or urgency, lightheadedness , dizziness, headache, memory loss, loss of consciousness, rash, abnormal bruising or bleeding, imbalance, focal or generalized weakness, numbness or tingling in arms or legs, generalized arthralgias or myalgias, back or neck pain, or night sweats. The review of systems is otherwise negative other than for that already noted above, and at least 10 systems have been reviewed. Physical Exam 2 Vital Signs (Past 24 Hours): Last Vital Signs Temp 36.7 C 06/29/18 02:43 Pulse 90 06/29/18 03:50 Resp 18 06/29/18 03:50 BP 134/89 06/29/18 02:43 Pulse Ox 96 06/29/18 03:50 Physical Exam: The patient is awake, alert and oriented 3, normocephalic and atraumatic, lying in bed and in no acute distress. HEENT--PERRL, EOMI, mucous membranes and oropharynx dry. Neck--supple. No JVD. No bruits. Thyroid normal, trachea midline, no adenopathy. Heart--normal S1 and S2. No murmurs, rubs or gallops. Lungs--decreased breath sounds throughout, no respiratory distress, no accessory muscle use. Abdomen--normal bowel sounds and soft. Nontender. Nondistended. Obese. Extremities--no cyanosis or clubbing. No edema. There are good distal pulses b/ l. Dermatologic--normal skin turgor, normal color, no abnormal lymph nodes, no rash. Neurologic--cranial nerves II through XII grossly intact. Rheumatologic--normal range of motion. Psychiatric--normal affect. Results & Data Laboratory Results Laboratory Results WBC 5.34 K/uL (4.8-10.8) 06/29/18 02:41 RBC 5.02 M/uL (4.7-6.1) 06/29/18 02:41 Hgb 15.2 g/dL (14.0-18.0) 06/29/18 02:41 Hct 42.9 % (42-52) 06/29/18 02:41 MCV 85.5 fL (80-100) 06/29/18 02:41 MCH 30.3 pg (25-34) 06/29/18 02:41 MCHC 35.4 g/dL (32-36) 06/29/18 02:41 RDW Std Deviation 43.8 fL (36.4-46.3) 06/29/18 02:41 RDW Coeff of Valeria 14.3 % (11.5-14.5) 06/29/18 02:41 Plt Count 163 K/uL (130-400) 06/29/18 02:41 MPV 11.4 fL (7.4-10.4) H 06/29/18 02:41 Immature Gran % (Auto) 0.4 % 06/29/18 02:41 Neut % (Auto) 51.5 % 06/29/18 02:41 Lymph % (Auto) 33.1 % 06/29/18 02:41 [place] % (Auto) 12.5 % 06/29/18 02:41 Eos % (Auto) 1.9 % 06/29/18 02:41 Baso % (Auto) 0.6 % 06/29/18 02:41 Immature Gran # (Auto) 0.02 K/uL (0.00-0.02) 06/29/18 02:41 Neut # (Auto) 2.75 K/uL (1.4-6.5) 06/29/18 02:41 Lymph # (Auto) 1.77 K/uL (1.2-3.4) 06/29/18 02:41 [place] # (Auto) 0.67 K/uL (0.11-0.59) H 06/29/18 02:41 Eos # (Auto) 0.10 K/uL (0-0.5) 06/29/18 02:41 Baso # (Auto) 0.03 K/uL (0-0.2) 06/29/18 02:41 PT 11.1 Seconds (9.0-12.0) 06/29/18 02:41 INR 1.1 (0.9-1.1) 06/29/18 02:41 APTT 26.5 Seconds (21.0-31.0) 06/29/18 02:41 PTT Ratio 1.0 06/29/18 02:41 D-Dimer 270 ug/L FEU (0-500) 06/28/18 22:00 Sodium 135 mmol/L (136-145) L 06/29/18 02:41 Potassium 3.8 mmol/L (3.5-5.1) 06/29/18 02:41 Chloride 100 mmol/L (98-107) 06/29/18 02:41 Carbon Dioxide 30 mmol/L (21-32) 06/29/18 02:41 Anion Gap 5.0 (3-11) 06/29/18 02:41 BUN 23 mg/dl (7-18) H 06/29/18 02:41 Creatinine 1.17 mg/dl (0.6-1.4) D 06/29/18 02:41 Est Cr Clr Drug Dosing 126.4 ml/min 06/29/18 02:41 Est GFR ( Amer) 86.1 06/29/18 02:41 Est GFR (Non-Af Amer) 74.3 06/29/18 02:41 BUN/Creatinine Ratio 19.4 (10-20) 06/29/18 02:41 Glucose 333 mg/dl (70-99) H 06/29/18 02:41 POC Glucose 307 (70-99) H 06/29/18 01:19 Calcium 8.4 mg/dl (8.5-10.1) L 06/29/18 02:41 Magnesium 2.1 mg/dl (1.8-2.4) 06/28/18 22:00 Total Bilirubin 0.6 mg/dl (0.2-1) 06/29/18 02:41 AST 48 U/L (15-37) H 06/29/18 02:41 ALT 101 U/L (12-78) H 06/29/18 02:41 Alkaline Phosphatase 104 U/L (45-117) 06/29/18 02:41 Troponin I 0.170 ng/ml (0-0.045) H* 06/29/18 02:41 NT-Pro-B Natriuret Pep 1427 pg/ml (0-450) H 06/28/18 22:00 Total Protein 7.0 gm/dl (6.4-8.2) 06/29/18 02:41 Albumin 3.7 gm/dl (3.4-5.0) 06/29/18 02:41 Globulin 3.3 gm/dl (2.5-4.0) 06/29/18 02:41 Albumin/Globulin Ratio 1.1 (0.9-2) 06/29/18 02:41 Lipase 85 U/L (73-393) 06/28/18 22:00 Beta-Hydroxybutyric Acd 3.40 mg/dl (0.2-2.81) H 06/29/18 02:41 Diagnostic Findings [facility], [place] [phone] XRay Report Patient: JULISSA MARIN Date: 06/28/18 MR#: [id number]: [address] Acct ID:[id number]: Date: 1970[facility] Zip: [place] [address] Age: 47Location: ED Sex: M Room/Bed: Att Phy: Diagnosis: CHEST PAIN Ernestina Phy: Alfred Dvais M.D.Service Date: 06/28/18 Fam Phy: Interpreting Phy: Khanh Soriano Admit Phy: Ordering Phy: Staci Joseph DO cc: ~ XR chest 1V portable HISTORY: 47 years-old Male Chest Pain acute atypical chest pain COMPARISON: Chest radiograph 04/08/2018 TECHNIQUE: Portable AP view of the chest FINDINGS: Cardiac silhouette is enlarged, unchanged. Prior median sternotomy. Left subclavian pacer/AICD appears unchanged. No pneumothorax, pleural effusion, focal airspace consolidation or overt pulmonary edema. Bones of the chest appear grossly intact. IMPRESSION: Cardiomegaly without acute process. The above report was generated using voice recognition software. It may contain grammatical, syntax or spelling errors. Electronically signed by: Tom Soriano M.D. 06/28/2018 11:00 PM Dictated: 06/28/182258 Transcribed: 06/28/182258 Medications Administered Home Medications Medication Instructions Recorded Confirmed aspirin 81 mg PO DAILY 01/21/18 06/28/18 atorvastatin 10 mg PO DAILY 01/21/18 06/28/18 furosemide 80 mg PO BID 01/21/18 06/28/18 methocarbamol 500 - 1,000 mg PO TID PRN 01/21/18 06/29/18 metoprolol succinate 100 mg PO UD 01/21/18 06/29/18 potassium chloride 20 meq PO DAILY 01/21/18 06/28/18 diltiazem HCl [DILT-XR] 120 mg PO DAILY 05/16/18 06/28/18 metformin 1,000 mg PO BID 06/28/18 06/28/18 sitagliptin [Januvia] 25 mg PO DAILY 06/28/18 06/28/18 Code Status & VTE Plan Code Status Full code VTE Prophylaxis Plan VTE Prophylaxis will be ordered: Yes _ (1) Chest pain Chest pain type: unspecified Ischemic chest pain type: Qualified Code(s): R07.9 - Chest pain, unspecified (2) HTN (hypertension) Hypertension type: unspecified Qualified Code(s): I10 - Essential (primary) hypertension
[2018-06-29] MEDS ORDERED: PERFLUTREN LIPID MICROSPHERE (DEFINITY) IV ONE (07:35)
[2018-06-29] MEDS ORDERED: INSULIN HUMAN REGULAR IV BOLUS 10 UNITS in SYRINGE 0 ML IV ONE (08:00)
[2018-06-29] MEDS: INSULIN ASPART 100 UNITS/ML 3 ML PEN SC SCH ×4 (08:06→20:47)
[2018-06-29] MEDS: POTASSIUM CHLORIDE 20 MEQ TABCR PO SCH (08:08)
[2018-06-29] MEDS: ASPIRIN 81 MG ECTAB PO SCH (08:08)
[2018-06-29] MEDS: ATORVASTATIN 10 MG TAB PO SCH (08:11)
[2018-06-29] MEDS ORDERED: FUROSEMIDE 40 MG TAB PO SCH (09:00)
[2018-06-29] MEDS ORDERED: INSULIN GLARGINE SOLOSTAR 100 UNITS/ML 3 ML PEN SC ONE (09:00)
[2018-06-29] MEDS: METHOCARBAMOL 500 MG TABLET PO PRN (09:29)
--- NOTE | 2018-06-29 10:02 | Pharmacy Report ---
Glycemic Control Consultation - Date of Service June 29, 2018 - Scope Scope: Glycemic Pharmacist consulted by Dr Jacobo on 06/29/18 for glycemic control and to write orders per [facility] inpatient glycemic control protocol - Objective Weight: 156.5 kg Accuchecks BSG (last 24hrs): 06/28/18 06/29/18 06/29/18 22:00 01:19 02:41 Glucose 517 H* 333 H POC Glucose 307 H 06/29/18 07:12 Glucose POC Glucose 335 H Laboratory Data (last 24hrs): 06/28/18 06/29/18 22:00 02:41 Potassium 4.0 3.8 Carbon Dioxide 28 30 Anion Gap 10.0 5.0 Creatinine 1.52 H 1.17 D Est Cr Clr Drug Dosing 98.6 126.4 Beta-Hydroxybutyric Acd 3.40 H - Recent Pertinent Medications Outpatient Anti-diabetic Regimen: * Januvia 25 mg PO daily + metformin 1 gm PO BID The patient is currently receiving: * Basal insulin: Lantus 27 units x 1 * Correctional Insulin: Novolog Correction per scale ACHS Goal Range: Low 120 mg/dL - High 160 mg/dL Correction Factor: 15 mg/dL/unit * Prandial insulin: Per carb ratio of 1 unit per 5 grams CHO consumed Risk Factors for Insulin Resistance: * Diet: T2DM - Assessment & Plan Assessment & Plan: ASSESSMENT: * Mr Raymundo is a 47 y/o M with a PMH of uncontrolled T2DM on oral therapies who presents with chest pain and a blood sugar of over 500 mg/dL. After 8 units of insulin blood sugars were back down in 300s mg/dL. Weight-based stress of 2 1/2 dose was given this morning and with AM blood sugar of 335 mg/dL will give enough to make a full weight-based stress of 2 Lantus dose for the morning. Will give more to have Lantus reach steady state faster. Weight-based scale available for the evening. * Weight-based stress of 2 Novolog started this morning. Continue unless BSGs rise significantly for lunch then will tighten. * Pt is maintained on oral antidiabetic agents as an outpatient * Oral agents are not recommended for inpatient use d/t drug interactions, changing PO intake, and difficulty titrating for acute hyper/hypoglycemia. ADA recommends re-initiating outpatient oral agents 1-2 days prior to discharge if/ when appropriate if they were held on admission. * Will hold oral agents for admission and utilize SQ basal bolus insulin regimen which is the recommended regimen for inpatient glycemic control. * Will initiate weight based insulin dosing for insulin gaby patient and titrate based on BSG trends. PLAN FOR INPATIENT GLYCEMIC CONTROL: * Holding outpatient oral diabetes medications * Basal insulin * Lantus 52 units SQ x 1 then 20-30 units SQ BID (20 units if BSG less than 140 mg/dL; 25 units if BSG 140-180 mg/dL; 30 units if BSG over 180 mg/dL) * Bolus insulin * NovoLog per scale ACHS or Q6hrs while NPO * Goal Range: Low 120 mg/dL - High 160 mg/dL * Correction Factor: 15 mg/dL/unit * Nutritional / Prandial insulin per carb ratio of 1 unit per 5 grams CHO consumed * Please note that the plan above was derived based on current level of insulin resistance and hospital stress. These recommendations are appropriate for inpatient admission only. Plan of care upon discharge will need to be reassessed to avoid potential outpatient hypo/hyperglycemia. Thank you.
[2018-06-29] MEDS ORDERED: SODIUM CHLORIDE 0.9% 1000ML 250 ML IV ONE (10:31)
--- NOTE | 2018-06-29 10:31 | Cardiology Consultation ---
Date of Consultation June 29, 2018 Assessment & Plan (1) Elevated troponin: I reviewed his records suggest that he has chronically elevated cardiac biomarkers. The degree of elevation varies, but his current elevations are certainly within the range that has been seen previously. He underwent cardiac catheterization just over a year ago for evaluation of symptoms and elevated biomarkers. He was noted to have the absence of obstructive coronary disease at that time. I do not believe his current symptoms are related to an acute coronary syndrome. I do not believe he has angina from coronary insufficiency. It is very possible that he has an element of subendocardial injury related to higher blood pressures at times. I do not believe he requires any additional coronary evaluation. I do not believe he requires a change in his medical therapy other than more aggressive control of blood pressure. Present on Admission?: Yes (2) Hypertrophic cardiomyopathy: He has previously undergone myomectomy. He subsequently developed complete heart block and currently has a biventricular ICD. He does not appear to have a significant outflow tract gradient. He has had symptoms of diastolic heart failure fairly frequently and in the past was noted to have reduced LV systolic function. More recent evaluations have suggested preserved LV systolic function in the echocardiogram today also confirms preserved systolic function. He has been maintained on a medical regimen to include diltiazem and metoprolol. He may benefit from a higher dose of diltiazem given the elevated blood pressures we have seen recently. With respect to his symptoms of dyspnea, I think this may be related to an element of dehydration. His symptoms include a mild exercise intolerance and a sense of tachycardia with activity. His examination is not consistent with volume overload. Evaluation of his ICD suggest that he is not retaining fluid based on OptiVol readings. It is very likely he experienced an osmotic diuresis recently given his market hyperglycemia. I think holding a dose of diuretic and providing some gentle hydration may improve his symptoms. We will need to be cautious given his propensity for diastolic failure. Present on Admission?: Yes (3) HTN (hypertension): He occasionally has some elevated blood pressures. He would likely benefit from a slightly higher dose of diltiazem. I think increasing his dose to 180 milligrams daily would be reasonable start. Present on Admission?: Yes (4) Chest pain: Atypical. Not related to an acute coronary syndrome. I do not believe he requires any additional ischemic evaluation. Present on Admission?: Yes (5) Biventricular ICD (implantable cardioverter-defibrillator) in place: I performed a complete device interrogation of his Medtronic biventricular ICD. Normal function. Good thresholds. Good pacing percentage in the ventricle. No significant arrhythmias. No therapies. Present on Admission?: Yes History of Present Illness Reason for Consultation: Chest pain, HCM Requesting Physician: David Attending Physician: Lai Allen MD History of Present Illness Patient is a 47-year-old gentleman with a history of hypertrophic cardiomyopathy status post myectomy, ICD and upgrade to biventricular device. Recently he has been diagnosed with diabetes. He has started on a medical regimen for control of blood sugar. Over the past week he has noted some sense of palpitations and atypical chest discomfort. He describes this discomfort as a pressure sensation or a pounding in his chest. It tends to happen mostly with exertion but can occur at rest as well. He does not describe it as pain. It is not positional. He does have an element of dyspnea which is chronic. This seemed to become slightly worse yesterday prior to admission. He was most notable with activity. He denies dizziness or lightheadedness. He has not had syncope. He does report higher blood pressures at home recently. He has also had difficulty controlling blood sugars. He measures mg twice daily and generally has readings above 300. Based on the nature of the symptoms he presented to [facility] last evening. He is felt to be mildly dehydrated. His blood sugar was over 500. He was mildly hypertensive. He did not have any arrhythmia, but did have a paced ventricular rhythm which precluded any evaluation for ischemia. Cardiac biomarkers are mildly elevated. Patient was admitted for observation. This morning he feels well at rest. However, with ambulation to the commode he does have a sense of fatigue and heart racing. Allergies Allergy/AdvReac Type Severity Reaction Status Date / Time erythromycin base Allergy Mild Unknown Verified 06/29/18 00:00 Home Medications Home Medications Medication Instructions Recorded Confirmed Type aspirin 81 mg PO DAILY 01/21/18 06/28/18 History atorvastatin 10 mg PO DAILY 01/21/18 06/28/18 History furosemide 80 mg PO BID 01/21/18 06/28/18 History methocarbamol 500 - 1,000 mg PO TID PRN 01/21/18 06/29/18 History metoprolol succinate 100 mg PO UD 01/21/18 06/29/18 History potassium chloride 20 meq PO DAILY 01/21/18 06/28/18 History diltiazem HCl [DILT-XR] 120 mg PO DAILY 05/16/18 06/28/18 History metformin 1,000 mg PO BID 06/28/18 06/28/18 History sitagliptin [Januvia] 25 mg PO DAILY 06/28/18 06/28/18 History Patient History Medical History Myocardial infarction (Resolved) Closed fracture of cervical spine (Resolved Unknown) Cardiomyopathy Hypoxia Pleuritis Acute bronchitis (Acute) Acute on chronic diastolic (congestive) heart failure Intractable back pain Back pain Elevated troponin (Acute) Chest pain HLD (hyperlipidemia) DVT prophylaxis Palpitations (Acute) CHF (congestive heart failure) Hypertrophic cardiomyopathy (Chronic Unknown) History of pacemaker Arrhythmia Arthritis Cardiac murmur Chronic back pain History of cardiac arrest History of complete heart block Osteoarthritis Presence of combination internal cardiac defibrillator (ICD) and pacemaker 2006- [facility] [place] - [facility] - FOLLOWS W/ DR. SON - DEVICE HAS BEEN UPGRADED SINCE Sleep apnea CPAP Valvular heart disease Surgical History History of appendectomy History of cardiac cath X 4 [facility] - [place] [place] 2017 - PACER MALFUNCTION - NO STENTS/ANGIOPLASTY - FOLLOWS W/ DR. SAWYER History of esophagogastroduodenoscopy (EGD) History of mitral valve repair History of open heart surgery 12/2015 - [facility] [place] SEPTAL MYECTOMY W/ MITRAL VALVE REPAIR - FOLLOWS W/ DR. SON Family History Mother Family history of reaction to anesthesia PONV Grandfather (Maternal) Family history of diabetes mellitus Grandmother (Maternal) Family history of diabetes mellitus Social History Current Living Situation: Significant Other Current Living Situation Comment: LIVES W/ MOTHER Other Information That Helps Us Care for You: No Feels Safe at Home: Yes Safety Concerns: Feels Safe At This Time Smoking Status: Former smoker Tobacco Type: smokeless tobacco Do You Dip or Chew Tobacco: Yes Hx Alcohol Use: Yes Alcohol type: wine and hard liquor Alcohol Intake Frequency: holidays/special occasions only Hx Substance Use: No Beliefs That Will Affect Care: None Preferred Language: Kazakh Communication Ability: Effective 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 Pertinent positives known history of present illness. He has not been sleeping well recently. He has been getting up frequently to urinate. He has noted some cramping in his flanks and legs which usually is associated with increased doses of Lasix. He has not taken extra doses of Lasix. He does not feel swollen. He does not feel as if he is volume overloaded. He uses BiPAP at night. He did report erythema involving the lower extremities recently. This morning he feels that that is resolved. Physical Exam Vital Signs (Past 24 Hours): Last Vital Signs Temp 36.7 C 06/29/18 06:52 Pulse 82 06/29/18 06:52 Resp 20 06/29/18 06:52 BP 130/67 06/29/18 06:52 Pulse Ox 97 06/29/18 06:52 Physical Exam: The patient is alert and oriented. Mood and affect appeared normal. He answered all questions appropriately. Obese HEENT: Pupils are equal and reactive to light and accommodation. Extraocular movements are intact. The sclerae are anicteric. Neuro: Cranial nerves intact Neck: Patient's neck is supple. He has palpable carotid pulses bilaterally without bruits on auscultation. There is no evidence of jugular venous distention. The thyroid is not enlarged. Lungs: Clear to auscultation bilaterally. He has good air movement without use of accessory muscles. No rales wheezes or rhonchi. Cardiac: Heart demonstrates a regular rate and rhythm. Normal S1 and S2. No murmurs on examination. Pulses: The patient has palpable radial pulses bilaterally that are equal in intensity Extremities: There was no evidence of hypoperfusion. There is no cyanosis or clubbing. There is no edema. Skin: I did not appreciate any rashes on examination today. Results & Data Laboratory Results Abnormal Lab Results 06/28/18 06/28/18 06/28/18 22:00 22:00 22:00 WBC 6.00 RBC 5.25 Hgb 16.0 Hct 44.7 MCV 85.1 MCH 30.5 MCHC 35.8 RDW Std Deviation 43.4 RDW Coeff of Valeria 14.1 Plt Count 183 MPV 12.4 H Immature Gran % (Auto) 0.3 Neut % (Auto) 61.8 Lymph % (Auto) 23.2 Karnes % (Auto) 12.5 Eos % (Auto) 1.2 Baso % (Auto) 1.0 Immature Gran # (Auto) 0.02 Neut # (Auto) 3.71 Lymph # (Auto) 1.39 Karnes # (Auto) 0.75 H Eos # (Auto) 0.07 Baso # (Auto) 0.06 PT INR APTT PTT Ratio D-Dimer 270 Sodium 131 L Potassium 4.0 Chloride 93 L Carbon Dioxide 28 Anion Gap 10.0 BUN 24 H Creatinine 1.52 H Est Cr Clr Drug Dosing 98.6 Est GFR ( Amer) 62.8 Est GFR (Non-Af Amer) 54.2 BUN/Creatinine Ratio 15.8 Glucose 517 H* POC Glucose Calcium 9.3 Magnesium 2.1 Total Bilirubin 0.7 AST 61 H ALT 113 H Alkaline Phosphatase 133 H Troponin I 0.169 H* NT-Pro-B Natriuret Pep 1427 H Total Protein 7.7 Albumin 4.0 Globulin 3.7 Albumin/Globulin Ratio 1.1 Lipase 85 Beta-Hydroxybutyric Acd 06/29/18 06/29/18 06/29/18 01:19 02:41 02:41 WBC 5.34 RBC 5.02 Hgb 15.2 Hct 42.9 MCV 85.5 MCH 30.3 MCHC 35.4 RDW Std Deviation 43.8 RDW Coeff of Valeria 14.3 Plt Count 163 MPV 11.4 H Immature Gran % (Auto) 0.4 Neut % (Auto) 51.5 Lymph % (Auto) 33.1 Karnes % (Auto) 12.5 Eos % (Auto) 1.9 Baso % (Auto) 0.6 Immature Gran # (Auto) 0.02 Neut # (Auto) 2.75 Lymph # (Auto) 1.77 Karnes # (Auto) 0.67 H Eos # (Auto) 0.10 Baso # (Auto) 0.03 PT INR APTT PTT Ratio D-Dimer Sodium 135 L Potassium 3.8 Chloride 100 Carbon Dioxide 30 Anion Gap 5.0 BUN 23 H Creatinine 1.17 D Est Cr Clr Drug Dosing 126.4 Est GFR ( Amer) 86.1 Est GFR (Non-Af Amer) 74.3 BUN/Creatinine Ratio 19.4 Glucose 333 H POC Glucose 307 H Calcium 8.4 L Magnesium Total Bilirubin 0.6 AST 48 H ALT 101 H Alkaline Phosphatase 104 Troponin I 0.170 H* NT-Pro-B Natriuret Pep Total Protein 7.0 Albumin 3.7 Globulin 3.3 Albumin/Globulin Ratio 1.1 Lipase Beta-Hydroxybutyric Acd 3.40 H 06/29/18 06/29/18 02:41 07:12 WBC RBC Hgb Hct MCV MCH MCHC RDW Std Deviation RDW Coeff of Valeria Plt Count MPV Immature Gran % (Auto) Neut % (Auto) Lymph % (Auto) Karnes % (Auto) Eos % (Auto) Baso % (Auto) Immature Gran # (Auto) Neut # (Auto) Lymph # (Auto) Karnes # (Auto) Eos # (Auto) Baso # (Auto) PT 11.1 INR 1.1 APTT 26.5 PTT Ratio 1.0 D-Dimer Sodium Potassium Chloride Carbon Dioxide Anion Gap BUN Creatinine Est Cr Clr Drug Dosing Est GFR ( Amer) Est GFR (Non-Af Amer) BUN/Creatinine Ratio Glucose POC Glucose 335 H Calcium Magnesium Total Bilirubin AST ALT Alkaline Phosphatase Troponin I NT-Pro-B Natriuret Pep Total Protein Albumin Globulin Albumin/Globulin Ratio Lipase Beta-Hydroxybutyric Acd Diagnostic Findings Chest x-ray obtained at the time of admission did not reveal any evidence of pulmonary vascular congestion I performed a full device interrogation today. Normal sensing thresholds on all 3 leads. He does have very rare episodes of nonsustained ventricular tachycardia lasting up to 5 seconds. No episodes in the past 2 months. No other arrhythmias. No therapies from his device. Overall rate histograms are normal. ECG Additional Comments: EKG obtained at the time admission revealed atrial sensed V paced rhythm (1) HTN (hypertension) Hypertension type: unspecified Qualified Code(s): I10 - Essential (primary) hypertension (2) Chest pain Chest pain type: unspecified Ischemic chest pain type: Qualified Code(s): R07.9 - Chest pain, unspecified
[2018-06-29] MEDS: ACETAMINOPHEN 325 MG TAB PO PRN (11:11)
--- NOTE | 2018-06-29 11:31 | History & Physical Bridge Note ---
Date of Service June 29, 2018 History & Physical Bridge Note Patient seen and examined today. Having some cramping chest pain, that does not seem cardiac in nature. Discussed with Dr. Millard who feels patient may be a bit dry due to osmotic diuresis from his hyperglycemia. No ICD shock on interrogation today. - Bolus 250cc NS - Hold afternoon Lasix - Control blood sugars - No further ischemic testing at this time
[2018-06-29] MEDS: MoRPHine SULFATE 4 MG/ML 1 ML CARP\\VIAL IV PRN ×3 (11:32→20:39)
[2018-06-29] MEDS: ONDANSETRON INJ 2 MG/ML 2 ML VIAL IV PRN (16:58)
[2018-06-29] MEDS: INSULIN GLARGINE SOLOSTAR 100 UNITS/ML 3 ML PEN SC SCH (20:48)
[2018-06-30] MEDS: METHOCARBAMOL 500 MG TABLET PO PRN ×2 (02:31→13:05)
[2018-06-30] MEDS: MoRPHine SULFATE 4 MG/ML 1 ML CARP\\VIAL IV PRN (02:34)
[2018-06-30 06:24] LABS: Basophils # (auto) 0.04 K/uL (0-0.2); Basophils % (auto) 0.9 %; Eosinophils # (auto) 0.19 K/uL (0-0.5); Eosinophils % (auto) 4.3 %; Hematocrit (blood only) 42.6 % (42-52); Hemoglobin 14.6 g/dL (14.0-18.0); Immature Granulocytes # (auto) 0.01 K/uL (0.00-0.02); Immature Granulocytes % (auto) 0.2 %; Lymphocytes # (auto) 1.36 K/uL (1.2-3.4); Lymphocytes % (auto) 30.7 %; Mean Corpuscular Hgb Conc 34.3 g/dL (32-36); Mean Corpuscular Volume 87.3 fL (80-100); Mean Platelet Volume 11.4 fL (7.4-10.4); Monocytes # (auto) 0.43 K/uL (0.11-0.59); Monocytes % (auto) 9.7 %; Neutrophils % (auto) 54.2 %; Platelet Count 151 K/uL (130-400); RDW Coefficient of Variation 14.2 % (11.5-14.5); RDW Standard Deviation 45.6 fL (36.4-46.3); Red Blood Count 4.88 M/uL (4.7-6.1); White Blood Count 4.43 K/uL (4.8-10.8)
[2018-06-30] MEDS: ACETAMINOPHEN 325 MG TAB PO PRN (06:35)
[2018-06-30 06:38] LABS: Estimated Average Glucose 243 mg/dl
[2018-06-30] MEDS: ONDANSETRON INJ 2 MG/ML 2 ML VIAL IV PRN (06:41)
[2018-06-30 06:52] LABS: INR 1.1 (0.9-1.1)
[2018-06-30 07:02] LABS: Albumin Level 3.3 gm/dl (3.4-5.0); BUN Creatinine Ratio 15.7 (10-20); Calcium 8.2 mg/dl (8.5-10.1); Est GFR (African American) 91.8; Est GFR (Non-African American) 79.2
[2018-06-30 07:04] LABS: Bilirubin,Total 0.7 mg/dl (0.2-1); Globulin 3.3 gm/dl (2.5-4.0); Total Protein 6.6 gm/dl (6.4-8.2)
[2018-06-30] MEDS: ATORVASTATIN 10 MG TAB PO SCH (08:11)
[2018-06-30] MEDS: ASPIRIN 81 MG ECTAB PO SCH (08:12)
[2018-06-30] MEDS: POTASSIUM CHLORIDE 20 MEQ TABCR PO SCH (08:12)
[2018-06-30] MEDS: INSULIN GLARGINE SOLOSTAR 100 UNITS/ML 3 ML PEN SC SCH (08:12)
[2018-06-30] MEDS: INSULIN ASPART 100 UNITS/ML 3 ML PEN SC SCH ×2 (08:13→11:49)
--- NOTE | 2018-06-30 08:34 | Emergency Department Note ---
Entered by Payton Mulligan acting as a scribe for History of Present Illness General Chief complaint: Chest Pain Stated complaint: CHEST PAIN Time Seen by Provider: 06/28/18 22:55 Source: patient History of Present Illness Onset (ago): day(s) (last night) Location: chest Pain Consistency: + other (worsening) Maximum Pain Intensity: 3 Quality: + sharp and + other (pressure) Exacerbated By: + other (exertion) Associated symptoms: + denies other symptoms (feeling like heart burn), + diaphoresis, + shortness of breath and + other (palpitations, red faced, feeling shaky, hypertension, elevated sugars) The patient is a 47 year old male who presents to the Emergency Room with complaints of worsening chest pain starting last night. The patient states that he has an extensive cardiac history. He states that he has a pacemaker installed and has hypertrophic cardiomyopathy. He states that he has had open heart surgery to clean his heart out. He reports that the last few days he has been feeling shaky. He reports that last night he started having a mild chest pressure. He states that this evening it became much worse. He states that it became a sharp pain, made him diaphoretic, and red in the face. He states that it felt like his heart was coming through his chest. He states that along with the chest pain he has been feeling short of breath. He states that he decided to come in because he was short of breath just bending over to tie his shoes. The patient notes that the last few weeks he has been feeling like he has had palpitations when he lies down for bed. The patient complains of hypertension, but his hypertension medications arent working. The patient notes that his diabetic medicine was changed this week. He states that they are trying to do different things because his blood sugars have been from 300-500 constantly and wont come down. The patient denies ever having chest pain with his cardiac history, taking anything for his chest pain, feeling like heart burn , and a history of a blood clot. He notes that he takes a baby Aspirin daily, but doesnt take any other blood thinners. Home Medications Home Medications Medication Instructions Recorded Confirmed Type aspirin 81 mg PO DAILY 01/21/18 06/28/18 History atorvastatin 10 mg PO DAILY 01/21/18 06/28/18 History furosemide 80 mg PO BID 01/21/18 06/28/18 History methocarbamol 500 - 1,000 mg PO TID PRN 01/21/18 06/29/18 History metoprolol succinate 100 mg PO DAILY 01/21/18 06/29/18 History potassium chloride 20 meq PO DAILY 01/21/18 06/28/18 History metformin 1,000 mg PO BID 06/28/18 06/28/18 History diltiazem HCl 180 mg PO QAM 30 Days #30 cap 06/30/18 Rx insulin glargine [Lantus Solostar 30 units SQ QAM 30 Days #9 ml 06/30/18 Rx U-100 Insulin] sitagliptin [Januvia] 100 mg PO DAILY #30 tab 06/30/18 Rx Allergies Allergy/AdvReac Type Severity Reaction Status Date / Time erythromycin base Allergy Mild Unknown Verified 06/29/18 00:00 Past Med/Surg History Medical History Myocardial infarction (Resolved) Closed fracture of cervical spine (Resolved Unknown) Cardiomyopathy Hypoxia Pleuritis Acute bronchitis (Acute) Acute on chronic diastolic (congestive) heart failure Intractable back pain Back pain Elevated troponin (Acute) Chest pain HLD (hyperlipidemia) DVT prophylaxis Palpitations (Acute) CHF (congestive heart failure) Hypertrophic cardiomyopathy (Chronic Unknown) History of pacemaker Arrhythmia Arthritis Cardiac murmur Chronic back pain History of cardiac arrest History of complete heart block Osteoarthritis Presence of combination internal cardiac defibrillator (ICD) and pacemaker 2006- [facility] [place] - [place] - FOLLOWS W/ DR. SON - DEVICE HAS BEEN UPGRADED SINCE Sleep apnea CPAP Valvular heart disease Surgical History History of appendectomy History of cardiac cath X 4 - [facility] - [place] REC[facility] SPR[place] 2017 - PACER MALFUNCTION - NO STENTS/ ANGIOPLASTY - FOLLOWS W/ DR. SAWYER History of esophagogastroduodenoscopy (EGD) History of mitral valve repair History of open heart surgery 12/2015 - [facility] – [place] - SEPTAL MYECTOMY W/ MITRAL VALVE REPAIR - FOLLOWS W/ DR. SON Family History Mother Family history of reaction to anesthesia PONV Grandfather (Maternal) Family history of diabetes mellitus Grandmother (Maternal) Family history of diabetes mellitus Social History Current Living Situation: Significant Other Current Living Situation Comment: LIVES W/ MOTHER Other Information That Helps Us Care for You: No Feels Safe at Home: Yes Safety Concerns: Feels Safe At This Time Smoking Status: Former smoker Tobacco Type: smokeless tobacco Do You Dip or Chew Tobacco: Yes Hx Alcohol Use: Yes Alcohol type: wine and hard liquor Alcohol Intake Frequency : holidays/special occasions only Hx Substance Use: No Beliefs That Will Affect Care: None Preferred Language: Hungarian Review of Systems See HPI for pertinent positives & negatives. and A total of 10 systems reviewed and were otherwise negative Physical Exam Vital Signs Vital Signs - 24 hr 06/30/18 02:51 06/30/18 07:18 06/30/18 08:00 Temperature 36.3 C L 37.1 C Temperature Source Oral Oral Pulse Rate [Apical] Pulse Rate [Finger] 90 85 Respiratory Rate 18 18 Respiratory Effort / Characteristics Non-Labored Spontaneous Blood Pressure [Left Arm] 136/93 Blood Pressure [Right Arm] 120/66 Blood Pressure Mean [Left Arm] 107 Blood Pressure Mean [Right Arm] 84 Blood Pressure Position [Left Arm] Lying Blood Pressure Position [Right Arm] Pulse Oximetry 92 95 Oxygen Delivery Method Room Air Room Air 06/30/18 10:40 06/30/18 13:52 Temperature 37.1 C 37.1 C Temperature Source Oral Pulse Rate [Apical] 83 Pulse Rate [Finger] 71 71 Respiratory Rate 22 22 Respiratory Effort / Characteristics Blood Pressure [Left Arm] 136/93 Blood Pressure [Right Arm] 110/68 110/68 Blood Pressure Mean [Left Arm] Blood Pressure Mean [Right Arm] 82 Blood Pressure Position [Left Arm] Blood Pressure Position [Right Arm] Lying Pulse Oximetry 94 94 Oxygen Delivery Method Room Air GENERAL: alert, well appearing, well nourished, no distress, non-toxic EYE EXAM: normal conjunctiva, PERRL and EOM's grossly intact OROPHARYNX: no exudate, no erythema, lips, buccal mucosa, and tongue normal and mucous membranes are dry NECK: supple, no nuchal rigidity, no adenopathy, non-tender LUNGS: Clear to auscultation. No wheezes, rhonchi, or rales. With conversation his oxygen saturation drops to 89%. Normal chest wall mechanics HEART: no murmurs, S1 normal and S2 normal CHEST: Well healed sternotomy scar. Well healed scar consistent with pacer on left anterior superior chest wall. ABDOMEN: abdomen soft and obese, non-tender, normo-active bowel sounds, no masses, no rebound or guarding. BACK: Back is symmetrical on inspection and there is no deformity, no midline tenderness, no CVA tenderness. SKIN: no rashes and no bruising UPPER EXTREMITIES: upper extremities are grossly normal. FROM, nml pulses b/l. LOWER EXTREMITIES: No pitting edema. FROM, nml pulses b/l. NEURO EXAM: Normal sensorium, cranial nerves II-XII grossly intact, normal speech, no gross weakness of arms, no gross weakness of legs. Course 2311: Past medical records reviewed. The patient was evaluated in room A2, and a complete history and physical examination were performed. 0017: I discussed the patient's case with Dr. Samaniego. He states that the patient can be admitted here and does not require urgent transfer. If he is not short of breath, then he doesn't need additional diuresis. 0039: I reviewed the patient's case with Dr. Lei DYSON Hospitalist. He will evaluate the patient for further management. Blood sugar improved to 307. 0117: I reevaluated the patient and updated him on his test results. I discussed the treatment plan with him. He verbally agrees and understands. His repeat sugar is 307. The patient's is concerned because when he falls asleep, his oxygen drops into the 70s, but he usually wears C-PAP at night. Consultations Consultation #1: I discussed the patient's case with Dr. Samaniego. He states that the patient can be admitted here and does not require urgent transfer. If he is not short of breath, then he doesn't need additional diuresis. Time: 00:17 Consultation #2: I reviewed the patient's case with Dr. Lei DYSON Hospitalist. He will evaluate the patient for further management. Time: 00:39 Administered Medications Discontinued Medications Acetaminophen (Tylenol) 650 mg PO Q4H PRN PRN Reason: Pain or Fever Stop: 07/29/18 02:31 Last Admin: 06/30/18 06:35 Dose: 650 mg Admin: 06/29/18 11:11 Dose: 650 mg Aspirin (Ecotrin Ectab) 81 mg PO DAILY SHAKIRA Stop: 07/29/18 08:59 Last Admin: 06/30/18 08:12 Dose: 81 mg Admin: 06/29/18 08:08 Dose: 81 mg Atorvastatin Calcium (Lipitor) 10 mg PO DAILY SHAKIRA Stop: 07/29/18 08:59 Last Admin: 06/30/18 08:11 Dose: 10 mg Admin: 06/29/18 08:11 Dose: 10 mg Diltiazem HCl (Dilacor Xr) 120 mg PO DAILY SHAKIRA Stop: 07/29/18 08:59 Last Admin: 06/30/18 08:12 Dose: 120 mg Admin: 06/29/18 08:08 Dose: 120 mg Famotidine (Pepcid 20mg Iv Push) 20 mg IV ONE STA Stop: 06/29/18 00:11 Last Admin: 06/29/18 00:17 Dose: 20 mg Fentanyl Citrate (Fentanyl Citrate) 100 mcg IV NOW STA Stop: 06/29/18 01:00 Last Admin: 06/29/18 01:03 Dose: 100 mcg Furosemide (Lasix) 80 mg PO BID17 SHAKIRA Stop: 07/29/18 08:59 Last Admin: 06/29/18 08:11 Dose: 80 mg Sodium Chloride (Nss 250ml) 250 mls @ 999 mls/hr IV .Q16M ONE Stop: 06/29/18 00:13 Last Infusion: 06/29/18 00:35 Dose: 0 mls/hr Admin: 06/29/18 00:19 Dose: 999 mls/hr Insulin Human Regular 10 units (/ Syringe) 10 mls @ 2 mls/min IV TODAY@0800 ONE Stop: 06/29/18 08:04 Last Admin: 06/29/18 08:07 Dose: 2 mls/min Sodium Chloride (Nss 1000ml) 250 mls @ 999 mls/hr IV .Q16M ONE Stop: 06/29/18 10:46 Last Infusion: 06/29/18 11:35 Dose: Admin: 06/29/18 11:35 Dose: 999 mls/hr Sodium Chloride (Nss) 500 mls @ 250 mls/hr IV .Q2H SHAKIRA Stop: 06/30/18 13:14 Last Infusion: 06/30/18 14:06 Dose: 0 mls/hr Admin: 06/30/18 11:45 Dose: 250 mls/hr Insulin Aspart (Novolog Flexpen) 0 units SC ACHS SHAKIRA Stop: 07/29/18 07:29 Last Admin: 06/30/18 11:49 Dose: 13 units Admin: 06/30/18 08:13 Dose: 11 units Admin: 06/29/18 20:47 Dose: 5 units Admin: 06/29/18 17:35 Dose: 12 units Admin: 06/29/18 12:36 Dose: 12 units Admin: 06/29/18 08:06 Dose: 12 units Insulin Aspart (Novolog Flexpen) 0 units SC NOW STA Stop: 06/29/18 03:46 Last Admin: 06/29/18 04:20 Dose: 12 units Insulin Glargine (Lantus Solostar Pen) 27 units SC NOW STA Stop: 06/29/18 03:48 Last Admin: 06/29/18 04:21 Dose: 27 units Insulin Glargine (Lantus Solostar Pen) 25 units SC NOW ONE Stop: 06/29/18 09:01 Last Admin: 06/29/18 08:09 Dose: 25 units Insulin Glargine (Lantus Solostar Pen) 0 units SC BID [facility]; Protocol Stop: 07/29/18 20:59 Last Admin: 06/30/18 08:12 Dose: 30 units Admin: 06/29/18 20:48 Dose: 30 units Insulin Human Regular (Novolin R U-100 Per Unit) 8 units IV NOW STA Stop: 06/28/18 23:59 Last Admin: 06/29/18 00:17 Dose: 8 units Methocarbamol (Robaxin) 500 mg PO TID PRN PRN Reason: Muscle Spasm Stop: 07/29/18 02:31 Last Admin: 06/30/18 13:05 Dose: 500 mg Admin: 06/30/18 02:31 Dose: 500 mg Admin: 06/29/18 09:29 Dose: 500 mg Metoprolol Succinate (Toprol Xl) 100 mg PO QAM [facility] Stop: 07/30/18 08:59 Last Admin: 06/30/18 08:12 Dose: 100 mg Miscellaneous (Order Awaiting Action) 1 ea N/A QS [facility] Stop: 07/29/18 07:59 Last Admin: 06/29/18 08:07 Dose: Not Given Morphine Sulfate (Morphine Sulfate) 4 mg IV Q4H PRN PRN Reason: Pain Stop: 07/13/18 11:21 Last Admin: 06/30/18 02:34 Dose: 4 mg Admin: 06/29/18 20:39 Dose: 4 mg Admin: 06/29/18 16:24 Dose: 4 mg Admin: 06/29/18 11:32 Dose: 4 mg Ondansetron HCl (Zofran) 4 mg IV Q6H PRN PRN Reason: NAUSEA/VOMITING Stop: 07/29/18 02:31 Last Admin: 06/30/18 06:41 Dose: 4 mg Admin: 06/29/18 16:58 Dose: 4 mg Perflutren Lipid Microsphere (Definity) 0 ml IV ONCE ONE Stop: 06/29/18 07:36 Last Admin: 06/29/18 07:36 Dose: 2 ml Potassium Chloride (Klor-Con M20) 20 meq PO DAILY SHAKIRA Stop: 07/29/18 08:59 Last Admin: 06/30/18 08:12 Dose: 20 meq Admin: 06/29/18 08:08 Dose: 20 meq Medical Decision Making Differential Diagnosis Differential diagnosis: Etiologies such as shingles, musculoskeletal pain, pericarditis, myocarditis, cardiac ischemia, pericardial tamponade, pneumonia, pneumothorax, pleural effusion, hemothorax, pleurisy, aortic pathology, pulmonary embolism, intra- abdominal process, as well as others were considered. Medical Records Attestation: I reviewed the patient's medical records. Home Medications Current Medication List: was personally reviewed by me Laboratory Data Attestation: I reviewed the patient's lab results. Result diagrams: 06/30/18 06:05 06/30/18 07:10 Lab Results 06/28/18 06/28/18 06/28/18 Range/Units 22:00 22:00 22:00 WBC 6.00 (4.8-10.8) K/uL RBC 5.25 (4.7-6.1) M/uL Hgb 16.0 (14.0-18.0) g/dL Hct 44.7 (42-52) % MCV 85.1 (80-100) fL MCH 30.5 (25-34) pg MCHC 35.8 (32-36) g/dL RDW Std Deviation 43.4 (36.4-46.3) fL RDW Coeff of Valeria 14.1 (11.5-14.5) % Plt Count 183 (130-400) K/uL MPV 12.4 H (7.4-10.4) fL Immature Gran % (Auto) 0.3 % Neut % (Auto) 61.8 % Lymph % (Auto) 23.2 % [place] % (Auto) 12.5 % Eos % (Auto) 1.2 % Baso % (Auto) 1.0 % Immature Gran # (Auto) 0.02 (0.00-0.02) K/uL Neut # (Auto) 3.71 (1.4-6.5) K/uL Lymph # (Auto) 1.39 (1.2-3.4) K/uL [place] # (Auto) 0.75 H (0.11-0.59) K/uL Eos # (Auto) 0.07 (0-0.5) K/uL Baso # (Auto) 0.06 (0-0.2) K/uL PT (9.0-12.0) Seconds INR (0.9-1.1) APTT (21.0-31.0) Seconds PTT Ratio D-Dimer 270 (0-500) ug/L FEU Sodium 131 L (136-145) mmol/L Potassium 4.0 (3.5-5.1) mmol/L Chloride 93 L (98-107) mmol/L Carbon Dioxide 28 (21-32) mmol/L Anion Gap 10.0 (3-11) BUN 24 H (7-18) mg/dl Creatinine 1.52 H (0.6-1.4) mg/dl Est Cr Clr Drug Dosing 98.6 ml/min Est GFR ( Amer) 62.8 Est GFR (Non-Af Amer) 54.2 BUN/Creatinine Ratio 15.8 (10-20) Glucose 517 H* (70-99) mg/dl POC Glucose (70-99) Estimat Average Glucose mg/dl Hemoglobin A1c (4.5-5.6) % Calcium 9.3 (8.5-10.1) mg/dl Magnesium 2.1 (1.8-2.4) mg/dl Total Bilirubin 0.7 (0.2-1) mg/dl AST 61 H (15-37) U/L ALT 113 H (12-78) U/L Alkaline Phosphatase 133 H (45-117) U/L Troponin I 0.169 H* (0-0.045) ng/ml NT-Pro-B Natriuret Pep 1427 H (0-450) pg/ml Total Protein 7.7 (6.4-8.2) gm/dl Albumin 4.0 (3.4-5.0) gm/dl Globulin 3.7 (2.5-4.0) gm/dl Albumin/Globulin Ratio 1.1 (0.9-2) Lipase 85 (73-393) U/L Beta-Hydroxybutyric Acd (0.2-2.81) mg/dl 06/29/18 06/29/18 06/29/18 Range/Units 01:19 02:41 02:41 WBC 5.34 (4.8-10.8) K/uL RBC 5.02 (4.7-6.1) M/uL Hgb 15.2 (14.0-18.0) g/dL Hct 42.9 (42-52) % MCV 85.5 (80-100) fL MCH 30.3 (25-34) pg MCHC 35.4 (32-36) g/dL RDW Std Deviation 43.8 (36.4-46.3) fL RDW Coeff of Valeria 14.3 (11.5-14.5) % Plt Count 163 (130-400) K/uL MPV 11.4 H (7.4-10.4) fL Immature Gran % (Auto) 0.4 % Neut % (Auto) 51.5 % Lymph % (Auto) 33.1 % [place] % (Auto) 12.5 % Eos % (Auto) 1.9 % Baso % (Auto) 0.6 % Immature Gran # (Auto) 0.02 (0.00-0.02) K/uL Neut # (Auto) 2.75 (1.4-6.5) K/uL Lymph # (Auto) 1.77 (1.2-3.4) K/uL [place] # (Auto) 0.67 H (0.11-0.59) K/uL Eos # (Auto) 0.10 (0-0.5) K/uL Baso # (Auto) 0.03 (0-0.2) K/uL PT (9.0-12.0) Seconds INR (0.9-1.1) APTT (21.0-31.0) Seconds PTT Ratio D-Dimer (0-500) ug/L FEU Sodium 135 L (136-145) mmol/L Potassium 3.8 (3.5-5.1) mmol/L Chloride 100 (98-107) mmol/L Carbon Dioxide 30 (21-32) mmol/L Anion Gap 5.0 (3-11) BUN 23 H (7-18) mg/dl Creatinine 1.17 D (0.6-1.4) mg/dl Est Cr Clr Drug Dosing 126.4 ml/min Est GFR ( Amer) 86.1 Est GFR (Non-Af Amer) 74.3 BUN/Creatinine Ratio 19.4 (10-20) Glucose 333 H (70-99) mg/dl POC Glucose 307 H (70-99) Estimat Average Glucose mg/dl Hemoglobin A1c (4.5-5.6) % Calcium 8.4 L (8.5-10.1) mg/dl Magnesium (1.8-2.4) mg/dl Total Bilirubin 0.6 (0.2-1) mg/dl AST 48 H (15-37) U/L ALT 101 H (12-78) U/L Alkaline Phosphatase 104 (45-117) U/L Troponin I 0.170 H* (0-0.045) ng/ml NT-Pro-B Natriuret Pep (0-450) pg/ml Total Protein 7.0 (6.4-8.2) gm/dl Albumin 3.7 (3.4-5.0) gm/dl Globulin 3.3 (2.5-4.0) gm/dl Albumin/Globulin Ratio 1.1 (0.9-2) Lipase (73-393) U/L Beta-Hydroxybutyric Acd 3.40 H (0.2-2.81) mg/dl 06/29/18 06/29/18 06/29/18 Range/Units 02:41 02:41 07:12 WBC (4.8-10.8) K/uL RBC (4.7-6.1) M/uL Hgb (14.0-18.0) g/dL Hct (42-52) % MCV (80-100) fL MCH (25-34) pg MCHC (32-36) g/dL RDW Std Deviation (36.4-46.3) fL RDW Coeff of Valeria (11.5-14.5) % Plt Count (130-400) K/uL MPV (7.4-10.4) fL Immature Gran % (Auto) % Neut % (Auto) % Lymph % (Auto) % [place] % (Auto) % Eos % (Auto) % Baso % (Auto) % Immature Gran # (Auto) (0.00-0.02) K/uL Neut # (Auto) (1.4-6.5) K/uL Lymph # (Auto) (1.2-3.4) K/uL [place] # (Auto) (0.11-0.59) K/uL Eos # (Auto) (0-0.5) K/uL Baso # (Auto) (0-0.2) K/uL PT 11.1 (9.0-12.0) Seconds INR 1.1 (0.9-1.1) APTT 26.5 (21.0-31.0) Seconds PTT Ratio 1.0 D-Dimer (0-500) ug/L FEU Sodium (136-145) mmol/L Potassium (3.5-5.1) mmol/L Chloride (98-107) mmol/L Carbon Dioxide (21-32) mmol/L Anion Gap (3-11) BUN (7-18) mg/dl Creatinine (0.6-1.4) mg/dl Est Cr Clr Drug Dosing ml/min Est GFR ( Amer) Est GFR (Non-Af Amer) BUN/Creatinine Ratio (10-20) Glucose (70-99) mg/dl POC Glucose 335 H (70-99) Estimat Average Glucose 243 mg/dl Hemoglobin A1c 10.1 H (4.5-5.6) % Calcium (8.5-10.1) mg/dl Magnesium (1.8-2.4) mg/dl Total Bilirubin (0.2-1) mg/dl AST (15-37) U/L ALT (12-78) U/L Alkaline Phosphatase (45-117) U/L Troponin I (0-0.045) ng/ml NT-Pro-B Natriuret Pep (0-450) pg/ml Total Protein (6.4-8.2) gm/dl Albumin (3.4-5.0) gm/dl Globulin (2.5-4.0) gm/dl Albumin/Globulin Ratio (0.9-2) Lipase (73-393) U/L Beta-Hydroxybutyric Acd (0.2-2.81) mg/dl 06/29/18 06/29/18 06/29/18 Range/Units 10:55 16:23 20:44 WBC (4.8-10.8) K/uL RBC (4.7-6.1) M/uL Hgb (14.0-18.0) g/dL Hct (42-52) % MCV (80-100) fL MCH (25-34) pg MCHC (32-36) g/dL RDW Std Deviation (36.4-46.3) fL RDW Coeff of Valeria (11.5-14.5) % Plt Count (130-400) K/uL MPV (7.4-10.4) fL Immature Gran % (Auto) % Neut % (Auto) % Lymph % (Auto) % [place] % (Auto) % Eos % (Auto) % Baso % (Auto) % Immature Gran # (Auto) (0.00-0.02) K/uL Neut # (Auto) (1.4-6.5) K/uL Lymph # (Auto) (1.2-3.4) K/uL [place] # (Auto) (0.11-0.59) K/uL Eos # (Auto) (0-0.5) K/uL Baso # (Auto) (0-0.2) K/uL PT (9.0-12.0) Seconds INR (0.9-1.1) APTT (21.0-31.0) Seconds PTT Ratio D-Dimer (0-500) ug/L FEU Sodium (136-145) mmol/L Potassium (3.5-5.1) mmol/L Chloride (98-107) mmol/L Carbon Dioxide (21-32) mmol/L Anion Gap (3-11) BUN (7-18) mg/dl Creatinine (0.6-1.4) mg/dl Est Cr Clr Drug Dosing ml/min Est GFR ( Amer) Est GFR (Non-Af Amer) BUN/Creatinine Ratio (10-20) Glucose (70-99) mg/dl POC Glucose 266 H 297 H 270 H (70-99) Estimat Average Glucose mg/dl Hemoglobin A1c (4.5-5.6) % Calcium (8.5-10.1) mg/dl Magnesium (1.8-2.4) mg/dl Total Bilirubin (0.2-1) mg/dl AST (15-37) U/L ALT (12-78) U/L Alkaline Phosphatase (45-117) U/L Troponin I (0-0.045) ng/ml NT-Pro-B Natriuret Pep (0-450) pg/ml Total Protein (6.4-8.2) gm/dl Albumin (3.4-5.0) gm/dl Globulin (2.5-4.0) gm/dl Albumin/Globulin Ratio (0.9-2) Lipase (73-393) U/L Beta-Hydroxybutyric Acd (0.2-2.81) mg/dl 06/30/18 06/30/18 06/30/18 Range/Units 06:05 06:05 06:05 WBC 4.43 L (4.8-10.8) K/uL RBC 4.88 (4.7-6.1) M/uL Hgb 14.6 (14.0-18.0) g/dL Hct 42.6 (42-52) % MCV 87.3 (80-100) fL MCH 29.9 (25-34) pg MCHC 34.3 (32-36) g/dL RDW Std Deviation 45.6 (36.4-46.3) fL RDW Coeff of Valeria 14.2 (11.5-14.5) % Plt Count 151 (130-400) K/uL MPV 11.4 H (7.4-10.4) fL Immature Gran % (Auto) 0.2 % Neut % (Auto) 54.2 % Lymph % (Auto) 30.7 % [place] % (Auto) 9.7 % Eos % (Auto) 4.3 % Baso % (Auto) 0.9 % Immature Gran # (Auto) 0.01 (0.00-0.02) K/uL Neut # (Auto) 2.40 (1.4-6.5) K/uL Lymph # (Auto) 1.36 (1.2-3.4) K/uL [place] # (Auto) 0.43 (0.11-0.59) K/uL Eos # (Auto) 0.19 (0-0.5) K/uL Baso # (Auto) 0.04 (0-0.2) K/uL PT 11.0 (9.0-12.0) Seconds INR 1.1 (0.9-1.1) APTT (21.0-31.0) Seconds PTT Ratio D-Dimer (0-500) ug/L FEU Sodium 139 (136-145) mmol/L Potassium (3.5-5.1) mmol/L Chloride 101 (98-107) mmol/L Carbon Dioxide 35 H (21-32) mmol/L Anion Gap 3.0 (3-11) BUN 17 (7-18) mg/dl Creatinine 1.11 (0.6-1.4) mg/dl Est Cr Clr Drug Dosing 133.0 ml/min Est GFR ( Amer) 91.8 Est GFR (Non-Af Amer) 79.2 BUN/Creatinine Ratio 15.7 (10-20) Glucose 191 H (70-99) mg/dl POC Glucose (70-99) Estimat Average Glucose mg/dl Hemoglobin A1c (4.5-5.6) % Calcium 8.2 L (8.5-10.1) mg/dl Magnesium (1.8-2.4) mg/dl Total Bilirubin 0.7 (0.2-1) mg/dl AST (15-37) U/L ALT 108 H (12-78) U/L Alkaline Phosphatase 91 (45-117) U/L Troponin I (0-0.045) ng/ml NT-Pro-B Natriuret Pep (0-450) pg/ml Total Protein 6.6 (6.4-8.2) gm/dl Albumin 3.3 L (3.4-5.0) gm/dl Globulin 3.3 (2.5-4.0) gm/dl Albumin/Globulin Ratio 1.0 (0.9-2) Lipase (73-393) U/L Beta-Hydroxybutyric Acd (0.2-2.81) mg/dl 06/30/18 06/30/18 06/30/18 Range/Units 07:09 07:10 11:46 WBC (4.8-10.8) K/uL RBC (4.7-6.1) M/uL Hgb (14.0-18.0) g/dL Hct (42-52) % MCV (80-100) fL MCH (25-34) pg MCHC (32-36) g/dL RDW Std Deviation (36.4-46.3) fL RDW Coeff of Valeria (11.5-14.5) % Plt Count (130-400) K/uL MPV (7.4-10.4) fL Immature Gran % (Auto) % Neut % (Auto) % Lymph % (Auto) % [place] % (Auto) % Eos % (Auto) % Baso % (Auto) % Immature Gran # (Auto) (0.00-0.02) K/uL Neut # (Auto) (1.4-6.5) K/uL Lymph # (Auto) (1.2-3.4) K/uL [place] # (Auto) (0.11-0.59) K/uL Eos # (Auto) (0-0.5) K/uL Baso # (Auto) (0-0.2) K/uL PT (9.0-12.0) Seconds INR (0.9-1.1) APTT (21.0-31.0) Seconds PTT Ratio D-Dimer (0-500) ug/L FEU Sodium (136-145) mmol/L Potassium 4.0 (3.5-5.1) mmol/L Chloride (98-107) mmol/L Carbon Dioxide (21-32) mmol/L Anion Gap (3-11) BUN (7-18) mg/dl Creatinine (0.6-1.4) mg/dl Est Cr Clr Drug Dosing ml/min Est GFR ( Amer) Est GFR (Non-Af Amer) BUN/Creatinine Ratio (10-20) Glucose (70-99) mg/dl POC Glucose 205 H 322 H (70-99) Estimat Average Glucose mg/dl Hemoglobin A1c (4.5-5.6) % Calcium (8.5-10.1) mg/dl Magnesium (1.8-2.4) mg/dl Total Bilirubin (0.2-1) mg/dl AST 75 H (15-37) U/L ALT (12-78) U/L Alkaline Phosphatase (45-117) U/L Troponin I (0-0.045) ng/ml NT-Pro-B Natriuret Pep (0-450) pg/ml Total Protein (6.4-8.2) gm/dl Albumin (3.4-5.0) gm/dl Globulin (2.5-4.0) gm/dl Albumin/Globulin Ratio (0.9-2) Lipase (73-393) U/L Beta-Hydroxybutyric Acd (0.2-2.81) mg/dl Imaging Data Radiologist's Impression: Radiology results as stated below per my review and the radiologist's interpretation: XR chest 1V portable HISTORY: 47 years-old Male Chest Pain acute atypical chest pain COMPARISON: Chest radiograph 04/08/2018 TECHNIQUE: Portable AP view of the chest FINDINGS: Cardiac silhouette is enlarged, unchanged. Prior median sternotomy. Left subclavian pacer/AICD appears unchanged. No pneumothorax, pleural effusion, focal airspace consolidation or overt pulmonary edema. Bones of the chest appear grossly intact. IMPRESSION: Cardiomegaly without acute process. The above report was generated using voice recognition software. It may contain grammatical, syntax or spelling errors. Electronically signed by: Tom Soriano M.D. 06/28/2018 11:00 PM ECG Data Attestation: I personally reviewed and interpreted this ECG as follows: Indication: chest pain Rate (beats per minute): 104 Rhythm: other (paced) Findings: + other (prolonged intervals consistent with pacing) and + left axis deviation; no acute ischemic change Comparison ECG Date: from (04/08/18) Change: no significant change Blood Pressure Blood Pressure Findings: Normal blood pressure Blood Pressure Disposition: did not require urgent referral MDM Narrative Patient with significant and complicated cardiac history at a young age including a by Bi-V ICD, prior myomectomy, and a history of hypertrophic cardiomyopathy. Patient on multiple blood pressure medications, and states had recently been better controlled. Patient with concerning story tonight for chest pain of unknown origin. Patient with a history of chronically elevated troponins due to significant cardiac history as well as chronic kidney disease. Patient's creatinine appears to be at his baseline. Patient's troponin is within the range of where his previously elevated troponins have been. Patient' s d-dimer is negative. Given complicated history case was discussed with cardiology first who was in agreement with plan for additional inpatient evaluation and possible repeat echo given his history. Concern for worsening cardiomyopathy. Patient also found to be markedly hyperglycemic. This did not improve with a dose of insulin. Patient states his family doctor has had difficulty controlling his blood sugar recently. No evidence for DKA. I do not suspect bacteremia/sepsis. No evidence of pleural effusion or acute pulmonary edema. Case discussed with hospitalist for additional evaluation and mgmt. Impression & Plan Chest pain, Dyspnea on exertion, Tachycardia, HTN (hypertension), Hyperglycemia , CKD (chronic kidney disease) Discharge Plan Visit Data *Final* Discharge Date/Time: 06/29/18 02:11 Chief Complaint: Chest Pain Stated Complaint: CHEST PAIN ED Provider: Staci Joseph Discharge Problem: Chest pain, Dyspnea on exertion, Tachycardia, HTN (hypertension), Hyperglycemia , CKD (chronic kidney disease) Patient Disposition: Admitted As Inpatient Condition: Good Discharge Instructions Interventions: ED Discharge Assessment Last Done: 06/29/18 02:11 The scribe's documentation has been prepared under my direction and personally reviewed by me in its entirety. I confirm that the note above accurately reflects all work, treatment, procedures, and medical decision making performed by me.
[2018-06-30] MEDS ORDERED: METOPROLOL SUCC 50MG EXT REL TAB PO SCH (09:00)
--- NOTE | 2018-06-30 09:00 | Cardiology Progress Note ---
Date of Service June 30, 2018 Assessment & Plan (1) Elevated troponin: (1) Elevated troponin: Troponin I appears to be chronically elevated. The degree of elevation varies, but his current elevations are certainly within the range that patient has had previously. He underwent Cardiac Catheterization just over a year ago for evaluation of symptoms and elevated biomarkers. No evidence of obstructive coronary disease at that time. This is not an acute coronary syndrome. It is possible that he has an element of subendocardial injury related to higher blood pressures at times. Continue aggressive management of Hypertension. -- No further ischemic workup is necessary at this time. -- Continue Toprol XL 100 mg bid. -- Increase Diltiazem XR to 180 mg daily. -- Continue Aspirin 81 mg daily. Present on Admission?: Yes (2) Hypertrophic Cardiomyopathy s/p Myomectomy: He has previously undergone myomectomy and subsequently developed complete heart block and currently has a biventricular ICD. No significant LVOT gradient on Echo 06/29/2018 and he currently has normal LV systolic function. His breathing is at baseline. -- Continue Toprol XL 100 mg bid. -- Increase Diltiazem XR to 180 mg daily. Present on Admission?: Yes (3) HTN (hypertension): -- Increase Diltiazem XR to 180 mg daily . Present on Admission?: Yes (4) Chest pain: Atypical -- does not appear to be an acute coronary syndrome. No further ischemic evaluation is necessary at this time. Present on Admission?: Yes (5) Biventricular ICD (implantable cardioverter-defibrillator) in place: Device interrogation of his Medtronic biventricular ICD performed by Dr. Millard yesterday. Normal Bi-V AICD function. Good thresholds. Appropriate sensing and pacing characteristics. Good pacing percentage in the ventricle. No significant arrhythmias. No therapies delivered. Present on Admission?: Yes Supervising Physician Co-Signing Physician Notes Lucio Millard MD Subjective Mr. Connolly is a 47-year-old male with a history of Hypertrophic Cardiomyopathy s/p Myectomy s/p Bi-V AICD, Dyslipidemia, Hypertension, Chronic Diastolic CHF, Obesity, and Sleep Apnea on CPAP who was diagnosed with Type 2 DM recently and whose BSG's have been uncontrolled. He was admitted on 06/29/18 with Atypical Chest Pain, Dyspnea, Elevated Troponin I Level, Uncontrolled Hyperglycemia with associated Dehydration. Patient seen in consultation by Dr. Millard yesterday and interrogated his BiV AICD. Since being admitted - patient has been doing better overall -- but still complains of nausea. Breathing is at baseline despite positive fluid balance. Still some atypical chest pain from time to time. BSG's have improved as well. He has had the following studies/procedures: 1. Cardiac catheterization 1999 in 2011 without significant CAD. 2. [place] [facility] [place] Medtronic single chamber ICD for primary prevention. 3. Echo 06/29/2015: Normal LV systolic function. EF 55-60%. Inferior base appears hypokinetic to akinetic. Severe asymmetric hypertrophy of anterior septum and base to mid septum, measuring up to 3.3 cm. Mild left atrial dilation. Jason of chordal apparatus. Maximum LVOT gradient at rest [address] chest 06/29/2015: Severe asymmetric hypertrophy of interventricular septu m measuring up to 4.1 cm. 5. Echo 06/30/2015: Limited study. Peak gradient 6.9 mmHg, increasing to 10.5 with Valsalva. 6. Cardiac catheterization 06/30/2015: No significant CAD. Normal PCWP (6). No pulmonary hypertension; 02/08 with a mean of 7. LVEDP 22, moderately elevated. LV intracavitary gradient was 5-8mmHg within the mid to distal/apical LV. This was not present near the LVOT. Post PVC beat gradient increased to 23 mmHg. EF 52%. 7. Septal myectomy and mitral valve repair 01/02/2016 at [facility] [place]: 8 mm Danitza stitch. 8. Echo 11/29/2016: Normal LV size and systolic function. EF 60-65%. No regional wall motion abnormalities. Severe asymmetric hypertrophy of anteroseptum and septal valderrama up to 3.1 cm. Type 1 diastolic dysfunction. Tissue Doppler suggests elevated left atrial pressures. No dynamic LVOT obstruction suggested. Mild AI. 9. ECHO 04/30/2017: Normal LV size and systolic function. EF 60-65%. Beemer appears hypokinetic to akinetic. Severe asymmetric hypertrophy of the anteroseptal base, measuring approximately 2.8 cm. Otherwise, moderate concentric LVH. Mild AI. Mild left atrial dilation. No significant LVOT obstruction suggested. 10. 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 Physical Exam Vital Signs (Past 24 Hours): Last Vital Signs Temp 37.1 C 06/30/18 07:18 Pulse 85 06/30/18 07:18 Resp 18 06/30/18 07:18 BP 136/93 06/30/18 07:18 Pulse Ox 95 06/30/18 07:18 Physical Exam: General: Patient in no acute distress. HEENT: Head is atraumatic, normocephalic. EOMs intact. Sclerae anicteric. Facies symmetric. No perioral cyanosis. Neck: No JVD. Carotid upstrokes +2 bilaterally without bruits. JVP is at the level of the clavicle sitting upright. Chest and Lungs: Clear to auscultation throughout all lung harrington, no wheezes, rales, or rhonchi. CVS: S1 and S2 are regular with a grade 2/6 basal systolic murmur. No obvious diastolic murmurs, gallops, or rubs. PMI is nonpalpable. No lifts, heaves, or thrills. No abdominal aortic or renal bruits. Abdominal Exam: Bowel sounds present. No masses, organomegaly, or tenderness. Extremities: No clubbing or cyanosis. Trace pretibial edema bilaterally. Intact posterior tibial and radial pulses bilaterally. Neurologic Exam: Patient is awake, alert, and oriented. Pleasant and cooperative. Answers questions appropriately. Speech is clear. Normal movement in all 4 extremities. Gait pattern was not assessed. ECHOCARDIOGRAM 06/29/2018: -- LV cavity is small with normal LV systolic function. -- LVEF 60% to 65%, no RWMA's. -- Severe asymmetric LVH, grade I LV diastolic dysfunction. -- Moderately dilated left atrium. -- Mild AI. -- RVSP is normal. -- No significant LVOT gradient at rest. Results & Data Laboratory Results Laboratory Results - last 24 hr 06/29/18 06/29/18 06/29/18 02:41 10:55 16:23 WBC RBC Hgb Hct MCV MCH MCHC RDW Std Deviation RDW Coeff of Valeria Plt Count MPV Immature Gran % (Auto) Neut % (Auto) Lymph % (Auto) Caldwell % (Auto) Eos % (Auto) Baso % (Auto) Immature Gran # (Auto) Neut # (Auto) Lymph # (Auto) Caldwell # (Auto) Eos # (Auto) Baso # (Auto) PT INR Sodium Potassium Chloride Carbon Dioxide Anion Gap BUN Creatinine Est Cr Clr Drug Dosing Est GFR ( Amer) Est GFR (Non-Af Amer) BUN/Creatinine Ratio Glucose POC Glucose 266 H 297 H Estimat Average Glucose 243 Hemoglobin A1c 10.1 H Calcium Total Bilirubin AST ALT Alkaline Phosphatase Total Protein Albumin Globulin Albumin/Globulin Ratio 06/29/18 06/30/18 06/30/18 20:44 06:05 06:05 WBC 4.43 L RBC 4.88 Hgb 14.6 Hct 42.6 MCV 87.3 MCH 29.9 MCHC 34.3 RDW Std Deviation 45.6 RDW Coeff of Valeria 14.2 Plt Count 151 MPV 11.4 H Immature Gran % (Auto) 0.2 Neut % (Auto) 54.2 Lymph % (Auto) 30.7 Caldwell % (Auto) 9.7 Eos % (Auto) 4.3 Baso % (Auto) 0.9 Immature Gran # (Auto) 0.01 Neut # (Auto) 2.40 Lymph # (Auto) 1.36 Caldwell # (Auto) 0.43 Eos # (Auto) 0.19 Baso # (Auto) 0.04 PT 11.0 INR 1.1 Sodium Potassium Chloride Carbon Dioxide Anion Gap BUN Creatinine Est Cr Clr Drug Dosing Est GFR ( Amer) Est GFR (Non-Af Amer) BUN/Creatinine Ratio Glucose POC Glucose 270 H Estimat Average Glucose Hemoglobin A1c Calcium Total Bilirubin AST ALT Alkaline Phosphatase Total Protein Albumin Globulin Albumin/Globulin Ratio 06/30/18 06/30/18 06/30/18 06:05 07:09 07:10 WBC RBC Hgb Hct MCV MCH MCHC RDW Std Deviation RDW Coeff of Valeria Plt Count MPV Immature Gran % (Auto) Neut % (Auto) Lymph % (Auto) Caldwell % (Auto) Eos % (Auto) Baso % (Auto) Immature Gran # (Auto) Neut # (Auto) Lymph # (Auto) Caldwell # (Auto) Eos # (Auto) Baso # (Auto) PT INR Sodium 139 Potassium 4.0 Chloride 101 Carbon Dioxide 35 H Anion Gap 3.0 BUN 17 Creatinine 1.11 Est Cr Clr Drug Dosing 133.0 Est GFR ( Amer) 91.8 Est GFR (Non-Af Amer) 79.2 BUN/Creatinine Ratio 15.7 Glucose 191 H POC Glucose 205 H Estimat Average Glucose Hemoglobin A1c Calcium 8.2 L Total Bilirubin 0.7 AST 75 H ALT 108 H Alkaline Phosphatase 91 Total Protein 6.6 Albumin 3.3 L Globulin 3.3 Albumin/Globulin Ratio 1.0 Medications Administered Active Medications Generic Name Dose Route Start Last Admin Trade Name Freq PRN Reason Stop Dose Admin Acetaminophen 1,000 mg 06/29/18 02:32 Ofirmev IV 07/29/18 02:31 Q8H PRN Pain or Fever Acetaminophen 650 mg 06/29/18 02:32 06/30/18 06:35 Tylenol PO 07/29/18 02:31 650 mg Q4H PRN Administration Pain or Fever Al Hydrox/Mg Hydrox/Simethicone 15 ml 06/29/18 02:32 Maalox PO 07/29/18 02:31 Q4H PRN Dyspepsia Aspirin 81 mg 06/29/18 09:00 06/30/18 08:12 Ecotrin Ectab PO 07/29/18 08:59 81 mg DAILY SHAKIRA Administration Atorvastatin Calcium 10 mg 06/29/18 09:00 06/30/18 08:11 Lipitor PO 07/29/18 08:59 10 mg DAILY SHAKIRA Administration Dextrose 25 - 50 ml 06/29/18 02:32 Dextrose 50% IV 07/29/18 02:31 UD PRN Hypoglycemia Protocol Protocol Diltiazem HCl 120 mg 06/29/18 09:00 06/30/18 08:12 Dilacor Xr PO 07/29/18 08:59 120 mg DAILY SHAKIRA Administration Glucagon 1 mg 06/29/18 02:32 Glucagen SQ 07/29/18 02:31 UD PRN Hypoglycemia Protocol Protocol Glucose 15 - 30 gm 06/29/18 02:32 Glucose 40% PO 07/29/18 02:31 UD PRN Hypoglycemia Protocol Protocol Glucose 4 - 8 tabs 06/29/18 02:32 Dex4 Glucose PO 07/29/18 02:31 UD PRN Hypoglycemia Protocol Protocol Insulin Aspart 0 units 06/29/18 07:30 06/30/18 08:13 Novolog Flexpen SC 07/29/18 07:29 11 units ACHS SHAKIRA Administration Insulin Glargine 0 units 06/29/18 21:00 06/30/18 08:12 Lantus Solostar Pen SC 07/29/18 20:59 30 units BID SHAKIRA Administration Protocol Magnesium Hydroxide 30 ml 06/29/18 02:32 Milk Of Magnesia PO 07/29/18 02:31 Q12H PRN Constipation Methocarbamol 500 mg 06/29/18 02:32 06/30/18 02:31 Robaxin PO 07/29/18 02:31 500 mg TID PRN Administration Muscle Spasm Metoprolol Succinate 100 mg 06/30/18 09:00 06/30/18 08:12 Toprol Xl PO 07/30/18 08:59 100 mg QAM SHAKIRA Administration Miscellaneous 15 - 30 gm 06/29/18 02:32 Carbohydrates For Hypoglycemia PO 07/29/18 02:31 UD PRN Hypoglycemia Treatment Miscellaneous Information 1 ea 06/29/18 03:40 Consult Glycemic Management Pharmacy N/A 07/29/18 03:39 DAILY PRN Consult Morphine Sulfate 4 mg 06/29/18 11:22 06/30/18 02:34 Morphine Sulfate IV 07/13/18 11:21 4 mg Q4H PRN Administration Pain Ondansetron HCl 4 mg 06/29/18 02:32 06/30/18 06:41 Zofran IV 07/29/18 02:31 4 mg Q6H PRN Administration NAUSEA/VOMITING Polyethylene Glycol 17 gm 06/29/18 02:32 Miralax Powder Packet PO 07/29/18 02:31 DAILY PRN Constipation Potassium Chloride 20 meq 06/29/18 09:00 06/30/18 08:12 Klor-Con M20 PO 07/29/18 08:59 20 meq DAILY SHAKIRA Administration
[2018-06-30] MEDS ORDERED: SODIUM CHLORIDE 0.9% 500 ML IV SCH (11:15)
--- NOTE | 2018-06-30 14:38 | Pharmacy Report ---
Pharmacy Glycemic Short Note 2 - Date of Service June 30, 2018 - Glycemic Short BSG Results (Last 24 hours): 06/29/18 06/29/18 06/30/18 16:23 20:44 06:05 Glucose 191 H POC Glucose 297 H 270 H 06/30/18 06/30/18 07:09 11:46 Glucose POC Glucose 205 H 322 H OUTPATIENT ANTIDIABETIC REGIMEN: * Januvia 25 QD, metformin 1 gm po BID ASSESSMENT: * Patient's A1c significantly elevated at 10.1%, would recommend addition of insulin to patient's outpatient regimen * Fasting BSG 191 this morning, improved * Post-prandial continue to be elevated, tightened CF/CR * Patient to be discharged today- discussed with discharging physician PLAN FOR INPATIENT GLYCEMIC CONTROL: * Hold outpatient oral diabetes medications * Basal insulin * Lantus per scale * 20 units BsG <140 * 25 units 140-180 * 30 units >180 * Bolus insulin * NovoLog per scale ACHS or Q6hrs while NPO * Goal Range: Low 120 mg/dL - High 160 mg/dL * Correction Factor: 15 mg/dL/unit * Nutritional / Prandial insulin per carb ratio of 1 unit per 5 grams CHO consumed PLAN FOR DISCHARGE: * Patient's A1c significantly elevated 10.1% indicating poor glycemic control in the outpatient setting with current po regimen. Limited insulin data for estimating outpatient needs. Recommend lantus 30 units daily to start (0.2 units /kg). Addition of novolog likely needed as well, but unable to determine appropriate doses at this time, patient to follow-up with outpatient provider for titration/initiation of dosing.
--- NOTE | 2018-06-30 17:08 | Discharge Summary ---
Date of Service June 30, 2018 Admission HPI Per Admitting Provider The patient is a 47-year-old male who presents to the emergency department with chest pain, shortness of breath and uncontrolled blood sugars worsening over the past week. He did see his PCP recently and had and medications adjusted somewhat, but has not had significant improvement. He reports taking his medications as directed. He has not had any significant change in his dietary or exercise habits. Admission Exam Per Admitting Provider The patient is awake, alert and oriented 3, normocephalic and atraumatic, lying in bed and in no acute distress. HEENT--PERRL, EOMI, mucous membranes and oropharynx dry. Neck--supple. No JVD. No bruits. Thyroid normal, trachea midline, no adenopathy. Heart--normal S1 and S2. No murmurs, rubs or gallops. Lungs--decreased breath sounds throughout, no respiratory distress, no accessory muscle use. Abdomen--normal bowel sounds and soft. Nontender. Nondistended. Obese. Extremities--no cyanosis or clubbing. No edema. There are good distal pulses b/l. Dermatologic--normal skin turgor, normal color, no abnormal lymph nodes, no rash. Neurologic--cranial nerves II through XII grossly intact. Rheumatologic--normal range of motion. Psychiatric--normal affect. Principal Diagnosis Chest pain Discharge Exam Constitutional WD/WN, vitals as above + obese Eyes PERRL, conjunctivae normal, anicteric sclerae ENMT external ear and nose normal, oropharynx normal Neck trachea midline, no thyromegaly Respiratory normal respiratory effort, lungs clear to auscultation Cardiovascular RRR, no murmur, no edema Gastrointestinal (Abdomen) normal bowel sounds, soft, nontender, no hepatosplenomegaly Musculoskeletal no cyanosis or clubbing, extremities motor strength 5/5 Skin no rashes, warm and dry Neurologic patellar DTR's 2+ bilat, sensation intact and PERRL, EOMI, accommodation nl, no face palsy, no dysarthria Psychiatric A+Ox3, euthymic affect Lymphatic no cervical or axillary lymphadenopathy Discharge Data Allergies Allergy/AdvReac Type Severity Reaction Status Date / Time erythromycin base Allergy Mild Unknown Verified 06/29/18 00:00 Consultations 06/29/18 00:39 ED Decision to Admit Stat 06/29/18 05:25 Consult Cardiology Routine Hospital Course (1) Chest pain: Chest pain with dyspnea on exertion/elevated troponin/hypertrophic cardiomyopathy/hypertension/history of OH-- Continue aspirin, diltiazem XR, metoprolol succinate and potassium chloride. Last ECHO on 01/22/18 showed an EF 65-70% cardiology feels that chest pain not related to heart troponin minimally elevated and consistent, no rise and fall no further testing while inpatient (2) Dyspnea on exertion: See above (3) HTN (hypertension): See above (4) Hypertrophic cardiomyopathy: 2D echocardiogram as noted above from 01/22/18. (5) Elevated troponin: (6) Hyperglycemia due to type 2 diabetes mellitus: Glucose was 517 upon admission. HbA1c is 10 discussed that he needs insulin to improve A1c he agrees discussed with pharmacy, determined a plan continue Metformin, increase Januvia to 100mg daily, appropriate renal dose start on Lantus 30 units every morning, he is new to insulin and short acting would likely be too much at first he will keep a close eye on sugars over the next week, check them four times a day, and take results with him to the PCP (7) Hyperlipidemia: Continue atorvastatin 10 mg daily. Check a fasting lipid panel. (8) Acute kidney injury: Creatinine was 1.52 upon admission, improved to baseline with IV fluids, likely some mild dehydration Total Time Total Time Spent Total Time Spent (In Minutes): 40 minutes Total Time Includes: Examination of the Patient, Discharge Planning, Medication Reconciliation (extensive amount of time spent on glucose control plan) and Communication With Other Providers (discussed with pharmacy and clinical unit educator) Discharge Plan Discharge Items Patient Disposition: Home - Self-Care Reason For Visit: CHEST PAIN, ELEVATED TROPONIN Discharge Diagnosis: Chest pain, chronically elevated tropoinin Uncontrolled Hypertension Condition: Good Discharge Goals: Decrease discomfort and Improve disease control Activity: Resume your previous activity Non-emergency contact: Primary Care Provider Call non-emergency contact if: you have any medication questions Follow-up/Referrals: Kojo Sanders PA-C [Non-Staff] - 07/18/18 1:45 pm (Please, follow up at [facility] Endocrinology Office with oKjo Sanders PA-C on SaturdayJuly 18 at 2:00 pm (arrive 1:45 pm). *This office is located in [address] of [facility] [place]. If you need to change this appointment, call the office at [phone].) Kayleigh Antonio PA-C [Physician [employer]] - 07/02/18 2:45 pm (Please, follow up at [facility] Cardiology Office with Kayleigh Antonio PA-C on SaturdayJuly 02 at 2:45 pm. *[address] of [facility] [place]. Phone number [phone].) Alfred Davis [Primary Care Provider] - 07/08/18 10:30 am (Please, follow up at [facility] with Dr. Alfred Davis on SaturdayJuly 08 at 10:30 am. *If you need to change this appointment, call the office at [phone].) Diet: Carb Consistent or DM2 and Heart Healthy Addtl Provider Instructions: Medications: - DILTIAZEM: dose increased from 120mg to 180mg daily, this is for better blood pressure control - LANTUS: 30 units every morning, next dose due tomorrow morning - JANUVIA: dose increased to 100mg daily Chest pain, mild elevation in heart enzymes seen by cardiology, no further invasive testing recommended heart enzymes are chronically elevated and not higher than normal no significant changes on EKG echocardiogram was same as prior Hypertension: cardiology recommends more intense blood pressure control Diltiazem dose increased BP this morning 110/68 which is excellent control Diabetes: poorly controled with HbA1c greater than 10 as you were discussing, sugars 300's at home continue Metformin at 1000mg twice a day Januvia dose increased to 100mg, this is max dose Lantus, long acting insulin, pharmacy recommends 30 units daily based on weight dosing in reality, you may require short acting insulin as well I would recommend low carb diet for the next week you should check sugars in morning when you get up, prior to lunch and prior to dinner and then at bedtime in addition to this check occasional sugars 2 hours after a meal (doesn't matter what meal) take these readings to your PCP to discuss possible Novolog or Humalog short acting insulin FOLLOW UP - Dr. Davis, call for appointment to be seen within 5-7 days, this is for hospital follow up Prescriptions: New diltiazem HCl 180 mg Capsule,Ext.Rel 24h Degradable 180 mg PO QAM 30 Days Qty: 30 RF: 3 insulin glargine [Lantus Solostar U-100 Insulin] 100 unit/mL (3 mL) insulin pen 30 units SQ QAM 30 Days Qty: 9 RF: 3 sitagliptin [Januvia] 100 mg tablet 100 mg PO DAILY Qty: 30 RF: 3 Continued methocarbamol 500 mg tablet 500 - 1,000 mg PO TID PRN (Reason: Muscle Spasm) RF: 0 furosemide 40 mg tablet 80 mg PO BID RF: 0 atorvastatin 10 mg tablet 10 mg PO DAILY RF: 0 metoprolol succinate 100 mg tablet extended release 24 hr 100 mg PO DAILY RF: 0 aspirin 81 mg Tablet,Delayed Release (Dr/Ec) 81 mg PO DAILY RF: 0 potassium chloride 20 mEq Tablet Extended Release 20 meq PO DAILY RF: 0 metformin 1,000 mg tablet 1,000 mg PO BID RF: 0 Discontinued diltiazem HCl [DILT-XR] 120 mg Capsule,Ext.Rel 24h Degradable 120 mg PO DAILY RF: 0 sitagliptin [Januvia] 25 mg tablet 25 mg PO DAILY RF: 0 Stand-Alone Forms: [facility]/Other Patient Handouts: Insulin Glargine Solution for injection, Injection Pens Dc, Diabetes Insulin Injections Ch Discharge Orders: Discharge Order (Routine); Ordered 06/30/18 Ordered By: Derrell Rizzo Admission Data Admit Date/Time: 06/29/18 01:40 Attending Provider: Derrell Rizzo Admit Provider: Andrea Davis Primary Care Provider: Alfred Davis Other Providers: Isaías Hogan ; Lai Allen Service: Telemetry Other Interventions: Discharge Summary Assessment (RN) Last Done: 06/30/18 13:52 DC Date/Time DO NOT enter until pt leaves facility: 06/30/18 15:00
[2018-06-30] MEDS ORDERED: INSULIN GLARGINE SOLOSTAR 100 UNITS/ML 3 ML PEN SC SCH (21:00)
== END 2018-06-30 15:00 | disposition home or self-care (01) | DRG 313 ==
LOC: ED 22:17 → SUATTDRO 06-29 01:40 → 2E 06-29 01:40
DX: I25.2 Old myocardial infarction; G47.30 Sleep apnea, unspecified; R06.09 Other forms of dyspnea; Z79.899 Other long term (current) drug therapy; Z83.3 Family history of diabetes mellitus; F17.220 Nicotine dependence, chewing tobacco, uncomplicated; N17.9 Acute kidney failure, unspecified; E86.0 Dehydration; R00.0 Tachycardia, unspecified; Z79.82 Long term (current) use of aspirin; I11.0 Hypertensive heart disease with heart failure; Z95.810 Presence of automatic (implantable) cardiac defibrillator; I50.32 Chronic diastolic (congestive) heart failure; R07.89 Other chest pain; Z79.4 Long term (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; Z68.41 Body mass index [BMI] 40.0-44.9, adult; E78.5 Hyperlipidemia, unspecified; R78.89 Finding of other specified substances, not normally found in blood; E11.65 Type 2 diabetes mellitus with hyperglycemia; Z88.1 Allergy status to other antibiotic agents; E66.3 Overweight; I42.2 Other hypertrophic cardiomyopathy

== ENCOUNTER 2020-01-28 11:11 | Observation (INO) ==
[2020-01-28 12:37] LABS: Basophils # (auto) 0.04 K/uL (0-0.2); Basophils % (auto) 0.6 %; Eosinophils # (auto) 0.16 K/uL (0-0.5); Eosinophils % (auto) 2.5 %; Hematocrit (blood only) 44.9 % (42-52); Hemoglobin 15.7 g/dL (14.0-18.0); Immature Granulocytes # (auto) 0.02 K/uL (0.00-0.02); Immature Granulocytes % (auto) 0.3 %; Lymphocytes # (auto) 1.75 K/uL (1.2-3.4); Lymphocytes % (auto) 26.8 %; Mean Corpuscular Hemoglobin 29.5 pg (25-34); Mean Corpuscular Volume 84.4 fL (80-100); Mean Platelet Volume 11.5 fL (7.4-10.4); Monocytes # (auto) 0.63 K/uL (0.11-0.59); Monocytes % (auto) 9.6 %; Neutrophils # (auto) 3.93 K/uL (1.4-6.5); Neutrophils % (auto) 60.2 %; Platelet Count 214 K/uL (130-400); RDW Coefficient of Variation 13.7 % (11.5-14.5); RDW Standard Deviation 42.3 fL (36.4-46.3); Red Blood Count 5.32 M/uL (4.7-6.1); White Blood Count 6.53 K/uL (4.8-10.8)
[2020-01-28] MEDS ORDERED: ONDANSETRON INJ 2 MG/ML 2 ML VIAL IV STA (12:40)
[2020-01-28] MEDS ORDERED: MoRPHine SULFATE 4 MG/ML 1 ML CARP\\VIAL IV STA (12:40)
[2020-01-28 12:41] LABS: Partial Thromboplastin Ratio 1.1; Partial Thromboplastin Time 29.9 Seconds (21.0-31.0); Prothrombin Time 10.9 Seconds (9.0-12.0)
--- NOTE | 2020-01-28 12:50 | Emergency Department Note ---
History of Present Illness General Chief complaint: Respiratory Problems Stated complaint: TROUBLE BREATHING Time Seen by Provider: 01/28/20 12:26 Source: patient History of Present Illness Provider complaint: Chest pain Onset (ago): year(s) Location: chest and right Radiation: non-radiation Severity: moderate Pain Consistency: + intermittent Maximum Pain Intensity: 0 Quality: + sharp Exacerbated By: + other (Deep breaths) Associated symptoms: + cough (Chronic cough) and + shortness of breath; no fever/chills and no nausea/vomiting This is a 49-year-old male who presents with chest pain and shortness of breath. The patient states that since 2016, after his open heart surgery, he developed right-sided chest pain intermittently. He thinks there was a problem with his lung filling with fluid at the time. Since his surgery he has had intermittent chest pain which he describes as sharp. Over the past 2 to 3 days he has developed the pain. It is worse with deep breaths and associated with shortness of breath. He states that he is at baseline very short of breath due to his heart problems but states that he felt worse over the past 2 to 3 days. He did have some leg swelling yesterday and took a double dose of his Lasix which seems to have helped. He did have some diarrhea yesterday which is now resolved. He thought he had a fever last night and took his temperature was 99.3. Home Medications Home Medications Medication Instructions Recorded Confirmed Type aspirin 81 mg PO QAM 01/21/18 01/28/20 History atorvastatin 10 mg PO QAM 01/21/18 01/28/20 History methocarbamol 500 - 1,000 mg PO TID PRN 01/21/18 01/28/20 History potassium chloride 20 meq PO QAM PRN 01/21/18 01/28/20 History metformin 1,000 mg PO BID 06/28/18 01/28/20 History Lantus Solostar U-100 Insulin 28 unit SUBCUT QAM 12/19/18 01/28/20 History diltiazem HCl [Cartia XT] 180 mg PO QAM 12/19/18 01/28/20 History metoprolol succinate 100 mg 100 mg PO BID tab 12/25/18 01/28/20 History tablet,extended release 24 hr Januvia 100 mg PO QAM 02/11/19 01/28/20 History insulin aspart U-100 [Novolog 5 unit SUBCUT HS 07/31/19 01/28/20 History Flexpen U-100 Insulin] insulin aspart U-100 [Novolog 40 unit SUBCUT QAM 07/31/19 01/28/20 History Flexpen U-100 Insulin] furosemide 80 mg PO BID17 PRN 08/13/19 01/28/20 History gabapentin 100 mg PO TID #30 cap 08/13/19 01/28/20 Rx Allergies Allergy/AdvReac Type Severity Reaction Status Date / Time erythromycin base Allergy Severe Anaphylaxis Verified 01/28/20 13:25 Past Med/Surg History Medical History Biventricular ICD (implantable cardioverter-defibrillator) in place (~08/2017) Single-chamber ICD 2006; Dual-chamber ICD 04/2017; Biventricular ICD 08/06/17 - [employer] Chronic back pain Chronic diastolic congestive heart failure CKD (chronic kidney disease) Closed fracture of cervical spine (Unknown) Depression NO MEDS History of cardiac arrest 12/2015 History of complete heart block HTN (hypertension) Hyperlipidemia Hypertrophic cardiomyopathy (Unknown) SEES DR. SAWYER Osteoarthritis Sleep apnea CPAP Type 2 diabetes mellitus Valvular heart disease Mitral valve repair Surgical History History of appendectomy History of cardiac cath X [address] [place] [address] - MOST RECENT SPRING 2017 - PACER MALFUNCTION - NO STENTS/ANGIOPLASTY - FOLLOWS W/ DR. SAWYER History of esophagogastroduodenoscopy (EGD) History of mitral valve repair DONE AT [facility] DEC 2015 Hx of surgical procedure SELF CONTAINED TUMOR REMOVED FROM SCROTUM S/P ventricular septal myectomy (~12/2015) Family History Mother Family history of reaction to anesthesia PONV Grandfather (Maternal) Family history of diabetes mellitus Grandmother (Maternal) Family history of diabetes mellitus Social History Smoking Status: Former smoker Tobacco Type: Cigarettes Second Hand Exposure: Yes; Hx Alcohol Use: Yes Alcohol type: beer and hard liquor Hx Substance Use: Yes Last Used Substance Other:: 1 WEEK AGO Substance Use Type Other:: LAST USE 2 YRS AGO Preferred Language: [place]ankan Communication Ability: Effective Coffee Shop Attendant Required: No Beliefs That Will Affect Care: None Current Living Situation: Family Current Living Situation Comment: LIVES WITH MOTHER Feels Safe at Home: Yes Assistive Devices: CPAP Review of Systems See HPI for pertinent positives & negatives. and A total of 10 systems reviewed and were otherwise negative Physical Exam Vital Signs Vital Signs - 24 hr 01/28/20 11:18 01/28/20 11:53 01/28/20 12:00 Temperature 36.8 C Temperature Source Oral Pulse Rate 77 70 69 Pulse Rate from SpO2 Sensor Respiratory Rate 20 23 21 Respiratory Effort / Characteristics Non-Labored Spontaneous Respiratory Depth Normal Respiratory Pattern Regular Blood Pressure 151/99 H Blood Pressure Mean 116 Pulse Oximetry 94 94 Oxygen Delivery Method Room Air Sepsis Recent Fever Within 48 Hours No Sepsis New/Unexplained Change in Mental Status N/A Sepsis Action Taken by Nursing No Action Required 01/28/20 12:08 01/28/20 12:30 01/28/20 12:54 Temperature Temperature Source Pulse Rate 66 68 Pulse Rate from SpO2 Sensor 68 Respiratory Rate 22 16 Respiratory Effort / Characteristics Respiratory Depth Respiratory Pattern Blood Pressure 114/86 Blood Pressure Mean 95 53 Pulse Oximetry 94 95 Oxygen Delivery Method Room Air Sepsis Recent Fever Within 48 Hours Sepsis New/Unexplained Change in Mental Status Sepsis Action Taken by Nursing 01/28/20 12:57 01/28/20 13:00 01/28/20 13:30 Temperature Temperature Source Pulse Rate 67 68 65 Pulse Rate from SpO2 Sensor 69 66 65 Respiratory Rate 17 20 20 Respiratory Effort / Characteristics Respiratory Depth Respiratory Pattern Blood Pressure 114/85 134/79 Blood Pressure Mean 90 86 Pulse Oximetry 96 95 91 Oxygen Delivery Method Sepsis Recent Fever Within 48 Hours Sepsis New/Unexplained Change in Mental Status Sepsis Action Taken by Nursing 01/28/20 14:00 01/28/20 14:22 01/28/20 14:30 Temperature Temperature Source Pulse Rate 65 66 65 Pulse Rate from SpO2 Sensor 65 66 65 Respiratory Rate 20 21 15 Respiratory Effort / Characteristics Respiratory Depth Respiratory Pattern Blood Pressure 116/81 145/78 H 123/66 Blood Pressure Mean 93 98 75 Pulse Oximetry 92 93 91 Oxygen Delivery Method Sepsis Recent Fever Within 48 Hours Sepsis New/Unexplained Change in Mental Status Sepsis Action Taken by Nursing 01/28/20 15:00 01/28/20 15:30 01/28/20 15:31 Temperature Temperature Source Pulse Rate 66 63 66 Pulse Rate from SpO2 Sensor 66 58 L 66 Respiratory Rate 14 16 12 Respiratory Effort / Characteristics Respiratory Depth Respiratory Pattern Blood Pressure 125/66 123/69 Blood Pressure Mean 93 76 Pulse Oximetry 96 91 96 Oxygen Delivery Method Sepsis Recent Fever Within 48 Hours Sepsis New/Unexplained Change in Mental Status Sepsis Action Taken by Nursing 01/28/20 16:00 01/28/20 16:30 01/28/20 16:31 Temperature Temperature Source Pulse Rate 61 61 62 Pulse Rate from SpO2 Sensor 61 61 62 Respiratory Rate 14 15 20 Respiratory Effort / Characteristics Respiratory Depth Respiratory Pattern Blood Pressure 125/64 113/62 Blood Pressure Mean 83 73 Pulse Oximetry 94 94 93 Oxygen Delivery Method Sepsis Recent Fever Within 48 Hours Sepsis New/Unexplained Change in Mental Status Sepsis Action Taken by Nursing Constitutional: Vital signs reviewed. Eyes: Pupils are equal round reactive to light. Conjunctiva are noninjected. ENT: Pharynx is clear without erythema or exudate. Mucous membranes are moist. Neck supple without meningeal signs. Respiratory: Clear to auscultation bilaterally. Breath sounds are equal bilaterally. No rales. Cardiovascular: Regular rate and rhythm. No rubs or gallops. GI: Soft, nondistended and nontender. Bowel sounds are present. Musculoskeletal: No peripheral edema. No lower extremity tenderness. Integumentary: No cyanosis. or jaundice. Neurological: The patient is awake and alert. No focal deficits. Psychiatric: Normal affect. Not anxious appearing. Course Administered Medications Discontinued Medications Ketorolac Tromethamine (Ketorolac 30 Mg/Ml Vial) 10 mg IV NOW STA Stop: 01/28/20 14:08 Last Admin: 01/28/20 14:17 Dose: 10 mg Documented by: [id number] Morphine Sulfate (Morphine Sulfate 4 Mg/Ml 1 Ml Carp\Vial) 4 mg IV NOW STA Stop: 01/28/20 12:41 Last Admin: 01/28/20 13:06 Dose: 4 mg Documented by: [id number] Ondansetron HCl (Ondansetron Inj 2 Mg/Ml 2 Ml Vial) 4 mg IV NOW STA Stop: 01/28/20 12:41 Last Admin: 01/28/20 13:06 Dose: 4 mg Documented by: [id number] Medical Decision Making Differential Diagnosis CHF exacerbation, pneumothorax, pneumonia, pleural effusion, MT, pleurisy Medical Records Attestation: I reviewed the patient's medical records. He was admitted last year for chest pain. He had a positive troponin at that time. He was seen by cardiology who felt his chest pain was likely not cardiac in origin. Home Medications Current Medication List: was personally reviewed by me Laboratory Data Attestation: I reviewed the patient's lab results. Result diagrams: 01/28/20 12:17 01/28/20 12:21 Lab Results 01/28/20 01/28/20 01/28/20 Range/Units 12:17 12:17 12:21 WBC 6.53 (4.8-10.8) K/uL RBC 5.32 (4.7-6.1) M/uL Hgb 15.7 (14.0-18.0) g/dL Hct 44.9 (42-52) % MCV 84.4 (80-100) fL MCH 29.5 (25-34) pg MCHC 35.0 (32-36) g/dL RDW Std Deviation 42.3 (36.4-46.3) fL RDW Coeff of Valeria 13.7 (11.5-14.5) % Plt Count 214 (130-400) K/uL MPV 11.5 H (7.4-10.4) fL Immature Gran % (Auto) 0.3 % Neut % (Auto) 60.2 % Lymph % (Auto) 26.8 % [place] % (Auto) 9.6 % Eos % (Auto) 2.5 % Baso % (Auto) 0.6 % Neut # (Auto) 3.93 (1.4-6.5) K/uL Lymph # (Auto) 1.75 (1.2-3.4) K/uL [place] # (Auto) 0.63 H (0.11-0.59) K/uL Eos # (Auto) 0.16 (0-0.5) K/uL Baso # (Auto) 0.04 (0-0.2) K/uL Immature Gran # (Auto) 0.02 (0.00-0.02) K/uL PT 10.9 (9.0-12.0) Seconds INR 1.0 (0.9-1.1) APTT 29.9 (21.0-31.0) Seconds PTT Ratio 1.1 D-Dimer (0-500) ug/L FEU Sodium 138 (136-145) mmol/L Potassium 4.1 (3.5-5.1) mmol/L Chloride 104 (98-107) mmol/L Carbon Dioxide 27 (21-32) mmol/L Anion Gap 7.0 (3-11) BUN 18 (7-18) mg/dl Creatinine 1.13 (0.6-1.4) mg/dl Est Cr Clr Drug Dosing 126.3 ml/min Est GFR ( Amer) 88.6 Est GFR (Non-Af Amer) 76.4 BUN/Creatinine Ratio 15.9 (10-20) Glucose 269 H (70-99) mg/dl Calcium 9.8 (8.5-10.1) mg/dl Total Bilirubin 0.7 (0.2-1) mg/dl AST 30 (15-37) U/L ALT 73 (12-78) U/L Alkaline Phosphatase 94 (45-117) U/L Troponin I 0.053 H* (0-0.045) ng/ml NT-Pro-B Natriuret Pep 522 H (0-450) pg/ml Total Protein 7.8 (6.4-8.2) gm/dl Albumin 3.7 (3.4-5.0) gm/dl Globulin 4.1 H (2.5-4.0) gm/dl Albumin/Globulin Ratio 0.9 (0.9-2) COVID-19 Eval Order COVID-19 PCR (Negative) 01/28/20 01/28/20 01/28/20 Range/Units 15:18 15:18 15:44 WBC (4.8-10.8) K/uL RBC (4.7-6.1) M/uL Hgb (14.0-18.0) g/dL Hct (42-52) % MCV (80-100) fL MCH (25-34) pg MCHC (32-36) g/dL RDW Std Deviation (36.4-46.3) fL RDW Coeff of Valeria (11.5-14.5) % Plt Count (130-400) K/uL MPV (7.4-10.4) fL Immature Gran % (Auto) % Neut % (Auto) % Lymph % (Auto) % [place] % (Auto) % Eos % (Auto) % Baso % (Auto) % Neut # (Auto) (1.4-6.5) K/uL Lymph # (Auto) (1.2-3.4) K/uL [place] # (Auto) (0.11-0.59) K/uL Eos # (Auto) (0-0.5) K/uL Baso # (Auto) (0-0.2) K/uL Immature Gran # (Auto) (0.00-0.02) K/uL PT (9.0-12.0) Seconds INR (0.9-1.1) APTT (21.0-31.0) Seconds PTT Ratio D-Dimer 350 (0-500) ug/L FEU Sodium (136-145) mmol/L Potassium (3.5-5.1) mmol/L Chloride (98-107) mmol/L Carbon Dioxide (21-32) mmol/L Anion Gap (3-11) BUN (7-18) mg/dl Creatinine (0.6-1.4) mg/dl Est Cr Clr Drug Dosing ml/min Est GFR ( Amer) Est GFR (Non-Af Amer) BUN/Creatinine Ratio (10-20) Glucose (70-99) mg/dl Calcium (8.5-10.1) mg/dl Total Bilirubin (0.2-1) mg/dl AST (15-37) U/L ALT (12-78) U/L Alkaline Phosphatase (45-117) U/L Troponin I 0.056 H* (0-0.045) ng/ml NT-Pro-B Natriuret Pep (0-450) pg/ml Total Protein (6.4-8.2) gm/dl Albumin (3.4-5.0) gm/dl Globulin (2.5-4.0) gm/dl Albumin/Globulin Ratio (0.9-2) COVID-19 Eval Order Covid19 Done at [facility] COVID-19 PCR (Negative) 01/28/20 Range/Units 15:44 WBC (4.8-10.8) K/uL RBC (4.7-6.1) M/uL Hgb (14.0-18.0) g/dL Hct (42-52) % MCV (80-100) fL MCH (25-34) pg MCHC (32-36) g/dL RDW Std Deviation (36.4-46.3) fL RDW Coeff of Valeria (11.5-14.5) % Plt Count (130-400) K/uL MPV (7.4-10.4) fL Immature Gran % (Auto) % Neut % (Auto) % Lymph % (Auto) % [place] % (Auto) % Eos % (Auto) % Baso % (Auto) % Neut # (Auto) (1.4-6.5) K/uL Lymph # (Auto) (1.2-3.4) K/uL [place] # (Auto) (0.11-0.59) K/uL Eos # (Auto) (0-0.5) K/uL Baso # (Auto) (0-0.2) K/uL Immature Gran # (Auto) (0.00-0.02) K/uL PT (9.0-12.0) Seconds INR (0.9-1.1) APTT (21.0-31.0) Seconds PTT Ratio D-Dimer (0-500) ug/L FEU Sodium (136-145) mmol/L Potassium (3.5-5.1) mmol/L Chloride (98-107) mmol/L Carbon Dioxide (21-32) mmol/L Anion Gap (3-11) BUN (7-18) mg/dl Creatinine (0.6-1.4) mg/dl Est Cr Clr Drug Dosing ml/min Est GFR ( Amer) Est GFR (Non-Af Amer) BUN/Creatinine Ratio (10-20) Glucose (70-99) mg/dl Calcium (8.5-10.1) mg/dl Total Bilirubin (0.2-1) mg/dl AST (15-37) U/L ALT (12-78) U/L Alkaline Phosphatase (45-117) U/L Troponin I (0-0.045) ng/ml NT-Pro-B Natriuret Pep (0-450) pg/ml Total Protein (6.4-8.2) gm/dl Albumin (3.4-5.0) gm/dl Globulin (2.5-4.0) gm/dl Albumin/Globulin Ratio (0.9-2) COVID-19 Eval Order COVID-19 PCR NEGATIVE (Negative) Imaging Data Radiologist's Impression: XR chest 1V portable CLINICAL HISTORY: SOB COMPARISON STUDY: 08/13/2019 FINDINGS: The heart is enlarged. There is a left subclavian a cyst/defibrillator. There is no focal pulmonary consolidation. There are no p leural effusions. There is slight interstitial prominence but no evidence of overt failure.[ IMPRESSION: 1. No evidence of focal pulmonary consolidation 2. Mild interstitial prominence but no evidence of overt failure ACT 112: Negative or not required by law. Electronically signed by: Eduardo Miranda M.D. 01/28/2020 12:56 PM Dictated: 01/28/201254 Transcribed: 01/28/201254 ECG Data Attestation: I personally reviewed and interpreted this ECG as follows: Indication: + chest pain Rate (beats per minute): 94 Rhythm: + other (AV dual paced rhythm) ECG Intervals/blocks: + IVCD ECG ST segments: + ST depression (Concordant ST depression in V2 less than 1 mm) and + ST elevation (Discordant ST elevations in the inferior leads and V3 to V6) ECG Findings: no PVCs Comparison ECG Date: from (August 13, 2019) Change: the following changes noted (ST depression in V2 was discordant) Additional Comments: Repeat twelve-lead EKG per my interpretation performed at 12:46 PM demonstrates a paced rhythm with a rate of [address] elevations in the inferior leads as well as V3 to V6. No PVCs. There is very minimal less than [address] depression in only 1 complex in V2. Blood Pressure Blood Pressure Findings: Elevated blood pressure Blood Pressure Disposition: Referred to patients primary care provider [facility] Narrative I did evaluate the patient as noted above. IV access was established. I did place an order for continuous cardiac monitoring. The monitor showed a paced rhythm at a rate of 75 bpm. I did treat the patient with IV morphine and Zofran. I did order and personally review the patient's 12-lead EKG as described above. He has a paced rhythm. There is some minimal ST depression which is chronic cording in V2 only. This is less than 1 mm. On reevaluation the patient's chest pain is very pleuritic. He states he feels fine unless he coughs. He otherwise does not have the chest pain. I did treat him with Toradol 10 mg IV. I did order and personally reviewed the images of the patient's chest x-ray as described above. There is no evidence of pneumonia or pneumothorax. I did order and review the patient's blood work as noted in the electronic medical record. He has no leukocytosis or anemia. D-dimer is negative. Troponin is slightly elevated but he does have a chronically elevated troponin. I did repeat a twelve-lead EKG which per my interpretation showed no significant change. He does have hyperglycemia. I did discuss the test results with the patient. I did recommend hospitalization for further care and repeat cardiac biomarkers. I did discuss the case with the hospitalist and correctional case manager. Impression & Plan LR (dyspnea on exertion), Right-sided chest pain, Elevated troponin, Acute hyp erglycemia Discharge Plan Visit Data Chief Complaint: Respiratory Problems Stated Complaint: TROUBLE BREATHING ED Provider: Matthias Martínez Discharge Problem: LR (dyspnea on exertion), Right-sided chest pain, Elevated troponin, Acute hyperglycemia Patient Disposition: Home - Self-Care Discharge Instructions [place]/Other Patient Handouts: 2019-nCoV Forms Stand Alone Forms: [facility], Virtual Emergency Department, Important Visit Information Prescriptions Prescriptions: No Action methocarbamol 500 mg tablet 500 - 1,000 mg PO TID PRN (Reason: Muscle Spasm) RF: 0 atorvastatin 10 mg tablet 10 mg PO QAM RF: 0 aspirin 81 mg Tablet,Delayed Release (Dr/Ec) 81 mg PO QAM RF: 0 potassium chloride 20 mEq Tablet Extended Release 20 meq PO QAM PRN (Reason: Other) RF: 0 metoprolol succinate 100 mg tablet extended release 24 hr 100 mg PO BID RF: 0 metformin 1,000 mg tablet 1,000 mg PO BID RF: 0 diltiazem HCl [Cartia XT] 180 mg capsule,extended release 24hr 180 mg PO QAM RF: 0 Lantus Solostar U-100 Insulin 100 unit/mL (3 mL) insulin pen 28 unit subcut QAM RF: 0 Januvia 100 mg tablet 100 mg PO QAM RF: 0 insulin aspart U-100 [Novolog Flexpen U-100 Insulin] 100 unit/mL (3 mL) insulin pen 40 unit SUBCUT QAM RF: 0 insulin aspart U-100 [Novolog Flexpen U-100 Insulin] 100 unit/mL (3 mL) insulin pen 5 unit SUBCUT HS RF: 0 furosemide 80 mg tablet 80 mg PO BID17 PRN (Reason: Fluid Retention) RF: 0 gabapentin 100 mg capsule 100 mg PO TID Qty: 30 RF: 0 Referrals Referrals: Alfred Davis [Primary Care Provider] -
--- NOTE | 2020-01-28 12:57 | XRay Report ---
XR chest 1V portable CLINICAL HISTORY: SOB COMPARISON STUDY: 08/13/2019 FINDINGS: The heart is enlarged. There is a left subclavian a cyst/defibrillator. There is no focal p ulmonary consolidation. There are no pleural effusions. There is slight interstitial prominence but n o evidence of overt failure.[ IMPRESSION: 1. No evidence of focal pulmonary consolidation 2. Mild interstitial prominence but no evidence of overt failure ACT 112: Negative or not required by law. Electronically signed by: Eduardo Miranda M.D. 01/28/2020 12:56 PM
[2020-01-28 12:59] LABS: Albumin Level 3.7 gm/dl (3.4-5.0); BUN Creatinine Ratio 15.9 (10-20); Calcium 9.8 mg/dl (8.5-10.1); Creatinine Clr Calc Pharmacy 126.3 ml/min; Est GFR (African American) 88.6; Est GFR (Non-African American) 76.4; Potassium 4.1 mmol/L (3.5-5.1)
[2020-01-28 13:12] LABS: Albumin Globulin Ratio 0.9 (0.9-2); Bilirubin,Total 0.7 mg/dl (0.2-1); Globulin 4.1 gm/dl (2.5-4.0); Total Protein 7.8 gm/dl (6.4-8.2); Troponin I 0.053 ng/ml (0-0.045)
[2020-01-28] MEDS ORDERED: KETOROLAC 30 MG/ML VIAL IV STA (14:07)
--- NOTE | 2020-01-28 15:26 | History & Physical Report ---
Date of Service January 28, 2020 Assessment & Plan (1) Right-sided chest pain: Atypical in nature, does not seem cardiac at all despite mildly elevated troponin. ECG with AV dual paced rhythm. No evidence of CHF, proBNP only very minimally elevated. Checked a d-dimer which was negative, which essentially rules out PE. Checked COVID-19 which was negative Checked CT of the chest later in the evening after admission without contrast which did not show any rib fractures or consolidation. Only with some pulmonary nodules, however did show distended gallbladder. Given that had a low-grade fever, frequent loose stools, and distended gallbladder on imaging-will now order RUQ ultrasound to look for acute cholecystitis. -Give IV morphine as needed for pain. (2) Elevated troponin: Minimally elevated at 0.05 on the first 2 checks. He is chronically elevated likely secondary to his HOCM Continue to trend serial troponin to ensure does not elevate significantly See above as per chest pain This is likely myocardial demand ischemia (3) Hypertrophic cardiomyopathy: Status post ventricular myectomy and ICD placement Follows with Dr. Hogan of cardiology (4) Biventricular ICD (implantable cardioverter-defibrillator) in place: As above (5) CKD (chronic kidney disease): CKD stage II-III Creatinine at baseline at 1.1 Follow BMP Renally dose medications (6) HTN (hypertension): Blood pressures are controlled Continue home medications of diltiazem 180 mg once daily, furosemide 80 mg p.o. twice daily along with potassium (7) Hyperlipidemia: No acute issues Continue home atorvastatin, aspirin (8) Chronic diastolic congestive heart failure: Appears around his usual weight, with mild edema, no CHF on examination With some worsening shortness of breath as above not likely related to CHF but rather from his chest pain Continue home furosemide 80 mg p.o. twice daily along with potassium Control blood pressure (9) Type 2 diabetes mellitus: With hyperglycemia here Hemoglobin A1c was 10.1 in 2019, has not been checked since then in this facility but has an outside PCP Will modify home insulin regimen just a little bit as he is on a very high dose of NovoLog first thing in the morning of 40 units Will increase his Lantus slightly to 30 units once daily in the morning and employ NovoLog sliding scale before meals and at bedtime with correction factor of 20 and carb ratio of 1-6 Check hemoglobin A1c in the morning (10) Sleep apnea: May use his own CPAP (11) Chronic back pain: Goes for injections with pain management periodically Morphine as needed for pain Continue methocarbamol as needed Continue gabapentin 100 mg p.o. 3 times daily (12) S/P mitral valve repair: Noted (13) S/P ventricular septal myectomy: Noted as above (14) Pulmonary nodules: Noted on CT chest to have multiple bilateral nodules that are solid measuring up to 6 mm in size. He has had nodules on previous imaging Recommend repeat CT of the chest in 3 to 6 months as an outpatient (15) Obesity: BMI 45.2 Needs weight loss counseling (16) DVT prophylaxis: Lovenox 40 mg SQ every 12 hours Disposition-bring in on observation for work-up for atypical right-sided chest pain and positive troponin History of Present Illness Chief Complaint: Right-sided chest pain, shortness of breath Primary Care Provider: Alfred Davis This patient is a 41-year-old male with an extensive past medical history significant for HOCM status post ventricular myectomy, ICD/pacer placement, HTN, CKD stage III, DM 2, chronic diastolic CHF, MEENU, hyperlipidemia, chronic lower back pain, and morbid obesity who presents to the ER with acute on chronic right-sided chest pain and slightly worsening shortness of breath for the last 3 to 4 days. He also reports having a fever to 99.3 last night and 3 days of loose stools. He reports he has had these similar right-sided chest pains in the past and had work-ups for blood clots that were negative a couple years ago. The pain is worse with coughing and with taking a deep breath in. He has some mild sputum production with his cough. Some of the pain does migrate across to the center of his lower chest. He reports he does have loose stools on and off and attributes it sometimes to his diabetes medication. His diarrhea has now resolved after taking Pepto-Bism ol. He does travel around a lot for work by driving. 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 No worsening lower extremity swelling. He does take his Lasix on most days but hold off on it when he is driving around a lot for work. He denies any recent weight gain. In the ER, his troponin was found to be slightly elevated at 0.053 which is not more than what it has been in the past. His proBNP was only minimally elevated at 522. A chest x-ray showed mild interstitial prominence but no overt CHF, no focal consolidation. An ECG showed an AV dual paced rhythm with a rate of 68. His CBC and CMP were otherwise normal except for a glucose of 269. He will be brought in on observation for a work-up for right-sided chest pain and positive troponin. Allergies Allergy/AdvReac Type Severity Reaction Status Date / Time erythromycin base Allergy Severe Anaphylaxis Verified 01/28/20 13:25 Home Medications Home Medications Medication Instructions Recorded Confirmed Type aspirin 81 mg PO QAM 01/21/18 01/28/20 History atorvastatin 10 mg PO QAM 01/21/18 01/28/20 History methocarbamol 500 - 1,000 mg PO TID PRN 01/21/18 01/28/20 History potassium chloride 20 meq PO QAM PRN 01/21/18 01/28/20 History metformin 1,000 mg PO BID 06/28/18 01/28/20 History Lantus Solostar U-100 Insulin 28 unit SUBCUT QAM 12/19/18 01/28/20 History diltiazem HCl [Cartia XT] 180 mg PO QAM 12/19/18 01/28/20 History metoprolol succinate 100 mg 100 mg PO BID tab 12/25/18 01/28/20 History tablet,extended release 24 hr Januvia 100 mg PO QAM 02/11/19 01/28/20 History insulin aspart U-100 [Novolog 5 unit SUBCUT HS 07/31/19 01/28/20 History Flexpen U-100 Insulin] insulin aspart U-100 [Novolog 40 unit SUBCUT QAM 07/31/19 01/28/20 History Flexpen U-100 Insulin] furosemide 80 mg PO BID17 PRN 08/13/19 01/28/20 History gabapentin 100 mg PO TID #30 cap 08/13/19 01/28/20 Rx Past Med/Surg History Medical History Biventricular ICD (implantable cardioverter-defibrillator) in place (~08/2017) Single-chamber ICD 2006; Dual-chamber ICD 04/2017; Biventricular ICD 08/06/17 - [employer] Chronic back pain Chronic diastolic congestive heart failure CKD (chronic kidney disease) Closed fracture of cervical spine (Unknown) Depression NO MEDS History of cardiac arrest 12/2015 History of complete heart block HTN (hypertension) Hyperlipidemia Hypertrophic cardiomyopathy (Unknown) SEES DR. SAWYER Osteoarthritis Sleep apnea CPAP Type 2 diabetes mellitus Valvular heart disease Mitral valve repair Surgical History History of appendectomy History of cardiac cath X 4 - [facility] - [facility] 2017 - PACER MALFUNCTION - NO STENTS/A NGIOPLASTY - FOLLOWS W/ DR. SAWYER History of esophagogastroduodenoscopy (EGD) History of mitral valve repair DONE AT [facility] DEC 2015 Hx of surgical procedure SELF CONTAINED TUMOR REMOVED FROM SCROTUM S/P ventricular septal myectomy (~12/2015) Family History Mother Family history of reaction to anesthesia PONV Grandfather (Maternal) Family history of diabetes mellitus Grandmother (Maternal) Family history of diabetes mellitus Social History Smoking Status: Former smoker Tobacco Type: Cigarettes Second Hand Exposure: Yes; Do You Dip or Chew Tobacco: Yes; Hx Alcohol Use: Yes Alcohol type: beer and hard liquor Hx Substance Use: Yes Last Used Substance: Unknown Last Used Substance Other:: 1 WEEK AGO Substance Use Type Other:: LAST USE 2 YRS AGO Preferred Language: Ethiopian Communication Ability: Effective Beater Tender Required: No Beliefs That Will Affect Care: None Current Living Situation: Family Current Living Situation Comment: LIVES WITH MOTHER Other Information That Helps Us Care for You: No Feels Safe at Home: Yes Safety Concerns: Feels Safe At This Time Assistive Devices: CPAP Review of Systems Review of Systems: All systems reviewed & are unremarkable except as noted in HPI & below Physical Exam Constitutional: WD/WN, vitals as above + morbidly obese Eyes: PERRL, conjunctivae normal, anicteric sclerae ENMT: external ear and nose normal, oropharynx normal Neck: trachea midline, no thyromegaly Respiratory: normal respiratory effort, lungs clear to auscultation Cardiovascular: Rate/Rhythm: regular rate and regular rhythm Heart Sounds: no murmur Extremities: + edema (Trace pitting edema of the legs bilaterally) Chest (Breasts): Chest: normal inspection of chest Additional Comments: No tenderness to palpation over the right sided or anterior chest wall Gastrointestinal (Abdomen): normal bowel sounds, soft, nontender, no hepatosplenomegaly Musculoskeletal: Extremities: extremities normal to inspection; no cyanosis and no clubbing Skin: no rashes, warm and dry Neurologic: moves all extremities and awake; no focal motor deficits Psychiatric: A+Ox3, euthymic affect Lymphatic: no lymphedema Results & Data Results & Data ([facility]) Vital Signs (Past 12 Hours) Vital Signs Temp Pulse Resp BP Pulse Ox 01/28/20 15:00 66 14 125/66 96 01/28/20 14:30 65 15 123/66 91 01/28/20 14:22 66 21 145/78 H 93 01/28/20 14:00 65 20 116/81 92 01/28/20 13:30 65 20 134/79 91 01/28/20 13:00 68 20 95 01/28/20 12:57 67 17 114/85 96 01/28/20 12:54 68 16 95 01/28/20 12:30 66 22 114/86 01/28/20 12:08 94 01/28/20 12:00 69 21 01/28/20 11:53 70 23 94 01/28/20 11:18 36.8 C 77 20 151/99 H 94 Laboratory Results 01/28/20 01/28/20 01/28/20 Range/Units 21:47 20:13 15:44 WBC (4.8-10.8) K/uL RBC (4.7-6.1) M/uL Hgb (14.0-18.0) g/dL Hct (42-52) % MCV (80-100) fL MCH (25-34) pg MCHC (32-36) g/dL RDW Std Deviation (36.4-46.3) fL RDW Coeff of Valeria (11.5-14.5) % Plt Count (130-400) K/uL MPV (7.4-10.4) fL Immature Gran % (Auto) % Neut % (Auto) % Lymph % (Auto) % Jasper % (Auto) % Eos % (Auto) % Baso % (Auto) % Neut # (Auto) (1.4-6.5) K/uL Lymph # (Auto) (1.2-3.4) K/uL Jasper # (Auto) (0.11-0.59) K/uL Eos # (Auto) (0-0.5) K/uL Baso # (Auto) (0-0.2) K/uL Immature Gran # (Auto) (0.00-0.02) K/uL PT (9.0-12.0) Seconds INR (0.9-1.1) APTT (21.0-31.0) Seconds PTT Ratio D-Dimer (0-500) ug/L FEU Sodium (136-145) mmol/L Potassium (3.5-5.1) mmol/L Chloride (98-107) mmol/L Carbon Dioxide (21-32) mmol/L Anion Gap (3-11) BUN (7-18) mg/dl Creatinine (0.6-1.4) mg/dl Est Cr Clr Drug Dosing ml/min Est GFR ( Amer) Est GFR (Non-Af Amer) BUN/Creatinine Ratio (10-20) Glucose (70-99) mg/dl POC Glucose 188 H (70-99) mg/dl Calcium (8.5-10.1) mg/dl Total Bilirubin (0.2-1) mg/dl AST (15-37) U/L ALT (12-78) U/L Alkaline Phosphatase (45-117) U/L Troponin I Pending (0-0.045) ng/ml NT-Pro-B Natriuret Pep (0-450) pg/ml Total Protein (6.4-8.2) gm/dl Albumin (3.4-5.0) gm/dl Globulin (2.5-4.0) gm/dl Albumin/Globulin Ratio (0.9-2) COVID-19 Eval Order COVID-19 PCR NEGATIVE (Negative) 01/28/20 01/28/20 01/28/20 Range/Units 15:44 15:18 15:18 WBC (4.8-10.8) K/uL RBC (4.7-6.1) M/uL Hgb (14.0-18.0) g/dL Hct (42-52) % MCV (80-100) fL MCH (25-34) pg MCHC (32-36) g/dL RDW Std Deviation (36.4-46.3) fL RDW Coeff of Valeria (11.5-14.5) % Plt Count (130-400) K/uL MPV (7.4-10.4) fL Immature Gran % (Auto) % Neut % (Auto) % Lymph % (Auto) % Jasper % (Auto) % Eos % (Auto) % Baso % (Auto) % Neut # (Auto) (1.4-6.5) K/uL Lymph # (Auto) (1.2-3.4) K/uL Jasper # (Auto) (0.11-0.59) K/uL Eos # (Auto) (0-0.5) K/uL Baso # (Auto) (0-0.2) K/uL Immature Gran # (Auto) (0.00-0.02) K/uL PT (9.0-12.0) Seconds INR (0.9-1.1) APTT (21.0-31.0) Seconds PTT Ratio D-Dimer 350 (0-500) ug/L FEU Sodium (136-145) mmol/L Potassium (3.5-5.1) mmol/L Chloride (98-107) mmol/L Carbon Dioxide (21-32) mmol/L Anion Gap (3-11) BUN (7-18) mg/dl Creatinine (0.6-1.4) mg/dl Est Cr Clr Drug Dosing ml/min Est GFR ( Amer) Est GFR (Non-Af Amer) BUN/Creatinine Ratio (10-20) Glucose (70-99) mg/dl POC Glucose (70-99) mg/dl Calcium (8.5-10.1) mg/dl Total Bilirubin (0.2-1) mg/dl AST (15-37) U/L ALT (12-78) U/L Alkaline Phosphatase (45-117) U/L Troponin I 0.056 H* (0-0.045) ng/ml NT-Pro-B Natriuret Pep (0-450) pg/ml Total Protein (6.4-8.2) gm/dl Albumin (3.4-5.0) gm/dl Globulin (2.5-4.0) gm/dl Albumin/Globulin Ratio (0.9-2) COVID-19 Eval Order Covid19 Done at [facility] COVID-19 PCR (Negative) 01/28/20 01/28/20 01/28/20 Range/Units 12:21 12:17 12:17 WBC 6.53 (4.8-10.8) K/uL RBC 5.32 (4.7-6.1) M/uL Hgb 15.7 (14.0-18.0) g/dL Hct 44.9 (42-52) % MCV 84.4 (80-100) fL MCH 29.5 (25-34) pg MCHC 35.0 (32-36) g/dL RDW Std Deviation 42.3 (36.4-46.3) fL RDW Coeff of Valeria 13.7 (11.5-14.5) % Plt Count 214 (130-400) K/uL MPV 11.5 H (7.4-10.4) fL Immature Gran % (Auto) 0.3 % Neut % (Auto) 60.2 % Lymph % (Auto) 26.8 % Jasper % (Auto) 9.6 % Eos % (Auto) 2.5 % Baso % (Auto) 0.6 % Neut # (Auto) 3.93 (1.4-6.5) K/uL Lymph # (Auto) 1.75 (1.2-3.4) K/uL Jasper # (Auto) 0.63 H (0.11-0.59) K/uL Eos # (Auto) 0.16 (0-0.5) K/uL Baso # (Auto) 0.04 (0-0.2) K/uL Immature Gran # (Auto) 0.02 (0.00-0.02) K/uL PT 10.9 (9.0-12.0) Seconds INR 1.0 (0.9-1.1) APTT 29.9 (21.0-31.0) Seconds PTT Ratio 1.1 D-Dimer (0-500) ug/L FEU Sodium 138 (136-145) mmol/L Potassium 4.1 (3.5-5.1) mmol/L Chloride 104 (98-107) mmol/L Carbon Dioxide 27 (21-32) mmol/L Anion Gap 7.0 (3-11) BUN 18 (7-18) mg/dl Creatinine 1.13 (0.6-1.4) mg/dl Est Cr Clr Drug Dosing 126.3 ml/min Est GFR ( Amer) 88.6 Est GFR (Non-Af Amer) 76.4 BUN/Creatinine Ratio 15.9 (10-20) Glucose 269 H (70-99) mg/dl POC Glucose (70-99) mg/dl Calcium 9.8 (8.5-10.1) mg/dl Total Bilirubin 0.7 (0.2-1) mg/dl AST 30 (15-37) U/L ALT 73 (12-78) U/L Alkaline Phosphatase 94 (45-117) U/L Troponin I 0.053 H* (0-0.045) ng/ml NT-Pro-B Natriuret Pep 522 H (0-450) pg/ml Total Protein 7.8 (6.4-8.2) gm/dl Albumin 3.7 (3.4-5.0) gm/dl Globulin 4.1 H (2.5-4.0) gm/dl Albumin/Globulin Ratio 0.9 (0.9-2) COVID-19 Eval Order COVID-19 PCR (Negative) Diagnostic Findings Chest x-ray as per HPI Code Status & VTE Plan VTE Prophylaxis Plan VTE Prophylaxis will be ordered: Yes PG Care Time/CCT Total # of Minutes Spent Total Time Spent with Patient: Total time spent is greater than 50% in coordination of care (as documented) at patient's floor/unit and/or counseling patient: Coding Level of Care Code 89011 OBS Care - Level 3 Diagnoses Right-sided chest pain R07.9 Elevated troponin R79.89 Hypertrophic cardiomyopathy I42.2 Biventricular ICD (implantable cardioverter-defibrillator) in place Z95.810 CKD (chronic kidney disease) N18.9 Chronic kidney disease stage: unspecified stage HTN (hypertension) I10 Hyperlipidemia E78.5 Chronic diastolic congestive heart failure I50.32 Type 2 diabetes mellitus E11.9 Sleep apnea G47.30 Chronic back pain M54.9; G89.29 S/P mitral valve repair Z98.890 S/P ventricular septal myectomy Z98.890 Pulmonary nodules R91.8 Obesity E66.9 DVT prophylaxis Z29.9 (1) CKD (chronic kidney disease) Chronic kidney disease stage: unspecified stage Qualified Code(s): N18.9 - Chronic kidney disease, unspecified
[2020-01-28 15:40] LABS: D Dimer 350 ug/L FEU (0-500)
[2020-01-28] MEDS ORDERED: CARBOHYDRATES FOR HYPOGLYCEMIA PO PRN (18:05)
[2020-01-28] MEDS ORDERED: DEXTROSE 50% 50 ML SYRINGE IV PRN (18:05)
[2020-01-28] MEDS ORDERED: GLUCOSE 10 TABS/TUBE PO PRN (18:05)
[2020-01-28] MEDS ORDERED: GLUCOSE 40% GEL 15 GM TUBE PO PRN (18:05)
[2020-01-28] MEDS ORDERED: METHOCARBAMOL 500 MG TABLET PO PRN (18:05)
[2020-01-28] MEDS ORDERED: ONDANSETRON INJ 2 MG/ML 2 ML VIAL IV PRN (18:05)
[2020-01-28] MEDS ORDERED: ACETAMINOPHEN 325 MG TAB PO PRN (18:05)
[2020-01-28] MEDS ORDERED: GLUCAGON FOR INJ 1 MG VIAL SQ PRN (18:05)
[2020-01-28] MEDS ORDERED: INFLUENZA ADMINISTRATION CHARGE ONE (18:21)
[2020-01-28] MEDS ORDERED: INFLUENZA VIRUS QUAD VACCINE 0.5 ML SYR IM ONE (18:21)
[2020-01-28] MEDS: MoRPHine SULFATE 2 MG/ML CARP IV PRN (20:10)
[2020-01-28] MEDS: ENOXAPARIN INJ 40 MG/0.4 ML SYR SQ SCH (20:11)
[2020-01-28] MEDS: GABAPENTIN 100 MG CAP PO SCH (20:12)
[2020-01-28] MEDS: FUROSEMIDE 80 MG TAB PO SCH (20:12)
[2020-01-28] MEDS: METOPROLOL SUCC 50MG EXT REL TAB PO SCH (20:12)
[2020-01-28] MEDS: INSULIN ASPART 100 UNITS/ML 3 ML PEN SQ SCH (20:14)
[2020-01-28] MEDS ORDERED: INSULIN ASPART 100 UNITS/ML 3 ML PEN SQ SCH (21:00)
--- NOTE | 2020-01-28 21:05 | CT Scan Report ---
CT chest wo con CT DOSE: 1340.54 mGy.cm CLINICAL HISTORY: 49 years-old Male with right sided chest pain. Acute right-sided chest pain TECHNIQUE: Multiaxial CT images of the chest were performed without contrast. A dose lowering techni que was utilized adhering to the principles of ALARA. COMPARISON: Chest radiograph of same day, CTA chest 08/01/2017. FINDINGS: Unremarkable thyroid. No adenopathy. Mild cardiomegaly. Prior median sternotomy and CABG. Left subcla vian pacer. No thoracic aortic aneurysm. No pneumothorax, pleural effusion or overt pulmonary edema. Minimal dependent bibasilar atelectasis. There are several scattered solid pulmonary nodules includin g a 6 mm solid nodule of the superior segment left lower lobe and a 6 mm solid nodule the right lower lobe (please see bookmarks). Central airways are patent. No airspace consolidation difficult for pne umonia. Distended gallbladder is partially imaged. Hepatic steatosis. No acute process of the imaged upper ab domen. Soft tissues are unremarkable. No acute rib fracture identified. The bones appear intact. IMPRESSION: 1. Cardiomegaly with prior median sternotomy and CABG. 2. No adenopathy, pleural effusion or airspace consolidation typical for pneumonia. 3. Hepatic steatosis. 4. Low suspicion scattered bilateral solid pulmonary nodules as above measure up to 6 mm. Follow-up g uidelines provided below. Please refer to below summary of Fleischner criteria recommendations for follow-up of incidental CT n odules (Alaina Beth, Guidelines for management of small pulmonary nodules detected on CT scans: A sta tement from the Fleischner Society, Radiology 237: [phone].) SOLID NODULES Multiple nodules size: <6 mm * Low risk patients: no routine follow-up * high risk patients: optional CT at 12 months Multiple nodules size: 6-8 mm * Low risk patients: follow-up at 3-6 months, then consider further follow-up at 18-24 months * high risk patients: follow-up at 3-6 months, then at 18-24 months if no change Note: newly detected indeterminate nodule in persons 35 years of age or older. * Low risk patients: minimal or absent history of smoking and/or other known risk factors * high risk patients: history of smoking or of other known risk factors (e.g. first degree relative with lung cancer, or exposure to asbestos, radon, uranium) * if a nodule up to 8 mm is partly solid or is ground glass further follow-up is required after 24 m onths to exclude possible slow growing adenocarcinoma ([facility]SON) ACT 112: Negative or not required by law. Electronically signed by: Tom Soriano M.D. 01/28/2020 9:04 PM
[2020-01-29 05:42] LABS: Basophils # (auto) 0.03 K/uL (0-0.2); Basophils % (auto) 0.5 %; Eosinophils % (auto) 3.1 %; Hematocrit (blood only) 45.6 % (42-52); Hemoglobin 15.8 g/dL (14.0-18.0); Immature Granulocytes # (auto) 0.02 K/uL (0.00-0.02); Immature Granulocytes % (auto) 0.3 %; Lymphocytes % (auto) 27.5 %; Mean Corpuscular Hemoglobin 29.8 pg (25-34); Mean Corpuscular Hgb Conc 34.6 g/dL (32-36); Mean Corpuscular Volume 85.9 fL (80-100); Monocytes # (auto) 0.52 K/uL (0.11-0.59); Neutrophils # (auto) 3.97 K/uL (1.4-6.5); Neutrophils % (auto) 60.6 %; Platelet Count 187 K/uL (130-400); RDW Coefficient of Variation 13.9 % (11.5-14.5); Red Blood Count 5.31 M/uL (4.7-6.1); White Blood Count 6.54 K/uL (4.8-10.8)
[2020-01-29 06:17] LABS: Albumin Level 3.7 gm/dl (3.4-5.0); BUN Creatinine Ratio 17.9 (10-20); Bilirubin,Total 0.6 mg/dl (0.2-1); Calcium 9.3 mg/dl (8.5-10.1); Creatinine Clr Calc Pharmacy 102.7 ml/min; Est GFR (African American) 68.4; Total Protein 7.7 gm/dl (6.4-8.2)
[2020-01-29 07:10] LABS: Potassium 3.9 mmol/L (3.5-5.1)
[2020-01-29 07:15] LABS: Bilirubin Direct 0.2 mg/dl (0-0.2); Magnesium 1.9 mg/dl (1.8-2.4)
--- NOTE | 2020-01-29 07:26 | Ultrasound Report ---
ABDOMINAL ULTRASOUND, RIGHT UPPER QUADRANT HISTORY: RUQ pain,distended GB on CT Chest. COMPARISON: Chest CT 01/28/2020. FINDINGS: Pancreas: Obscured by overlying bowel gas. Liver: The liver is echogenic consistent with fatty change. Gallbladder: The gallbladder is mildly distended. No gallbladder wall thickening. No gallstones. Nega tive sonographic Munoz sign. CBD: 5 mm. Right kidney: No hydronephrosis. IMPRESSION: Mild distended gallbladder. No gallbladder wall thickening. No gallstones. ACT 112: Negative or not required by law. Electronically signed by: Eliazar Pinto M.D. 01/29/2020 7:24 AM
[2020-01-29 07:51] LABS: Estimated Average Glucose 220 mg/dl; Hemoglobin A1C 9.3 % (4.5-5.6)
[2020-01-29] MEDS: INSULIN ASPART 100 UNITS/ML 3 ML PEN SQ SCH ×2 (08:16→13:29)
[2020-01-29] MEDS: ENOXAPARIN INJ 40 MG/0.4 ML SYR SQ SCH (08:17)
[2020-01-29] MEDS: GABAPENTIN 100 MG CAP PO SCH ×2 (08:18→13:30)
[2020-01-29] MEDS: FUROSEMIDE 80 MG TAB PO SCH (08:19)
[2020-01-29] MEDS: METOPROLOL SUCC 50MG EXT REL TAB PO SCH (08:19)
[2020-01-29] MEDS: MoRPHine SULFATE 2 MG/ML CARP IV PRN (08:34)
[2020-01-29] MEDS ORDERED: SITAGLIPTIN PHOSPHATE 100 MG TAB PO SCH (09:00)
[2020-01-29] MEDS ORDERED: POTASSIUM CHLORIDE 20 MEQ TABCR PO SCH (09:00)
[2020-01-29] MEDS ORDERED: ASPIRIN 81 MG ECTAB PO SCH (09:00)
[2020-01-29] MEDS ORDERED: INSULIN GLARGINE SOLOSTAR 100 UNITS/ML 3 ML PEN SQ SCH ×2 (09:00)
[2020-01-29] MEDS ORDERED: ATORVASTATIN 10 MG TAB PO SCH (09:00)
[2020-01-29] MEDS ORDERED: dilTIAZem HCL 180 MG CAPCR PO SCH (09:00)
[2020-01-29 11:42] VITALS: PULSE 65; TEMP 98.2; O2SAT 93
--- NOTE | 2020-01-29 12:46 | Electrocardiogram Report ---
Test Reason : Blood Pressure : / mmHG Vent. Rate : 094 BPM Atrial Rate : 094 BPM P-R Int : 180 ms QRS Dur : 178 ms QT Int : 442 ms P-R-T Axes : 067 -85 091 degrees QTc Int : 552 ms AV dual-paced rhythm Abnormal ECG When compared with ECG of 13-AUG-2019 13:35, Vent. rate has increased BY 22 BPM Confirmed by Stephen Medrano ([id number]) on 01/29/2020 12:45:33 PM Referred By: Confirmed By:Stephen Medrano
--- NOTE | 2020-01-29 12:48 | Electrocardiogram Report ---
Test Reason : Blood Pressure : / mmHG Vent. Rate : 068 BPM Atrial Rate : 068 BPM P-R Int : 176 ms QRS Dur : 184 ms QT Int : 510 ms P-R-T Axes : 065 -86 099 degrees QTc Int : 542 ms AV dual-paced rhythm Abnormal ECG When compared with ECG of 28-JAN-2020 11:25, (unconfirmed) Vent. rate has decreased BY 26 BPM Confirmed by Stephen Medrano ([id number]) on 01/29/2020 12:47:53 PM Referred By: REFERRED SELF Confirmed By:Stephen Medrano
--- NOTE | 2020-01-29 12:58 | Medical Student Progress Note ---
Date of Service January 29, 2020 Assessment & Plan (1) Right-sided chest pain: Hollis is a 49-yo male with an extensive past medical history that includes hypertrophic cardiomyopathy, ventricular septal myectomy, biventricular ICD, HTN, HLD, T2DM, CKD, chronic diastolic CHF, and sleep apnea who presented to the ED with worsening right-sided chest pain and SOB. Based on labs/imaging, patient's description of symptoms, and PE, the chest pain does not seem cardiac in origin. Pain is likely of MSK origin and is consistent with acute pleuritic inflamation. Plan is to discharge him for at-home pain management. 1. Chest Pain - sharp pain exacerbated by deep inspiration and coughing - 3 day history of pain being worse than his baseline - CT showed no consolidation or rib fracture - negative d-dimer to rule out PE - negative Covid test - CT showed distended gb - US revealed no gb wall thickening or gs - description of pain aligns with symptoms of pleurisy - plan to treat at home with tylenol for pain management 2. HTN - continue home meds diltiazem and furosemide - BPs stable at 120s/60s 3. HLD - continue home meds atorvastatin and aspirin 4. ID-T2DM - hyperglycemic - regimen includes Lantus 40 units in AM/ 5 units in PM, Novolog 6-14 with meals - A1c results were 9.3 - reports having stopped taking insulin a few weeks prior to admission with no change to his gluc Present on Admission?: Yes Admission and Anticipated Discharge Date Admission Date: January 28, 2020 Subjective Hollis is a 49-yo male with an extensive past medical history that includes hypertrophic cardiomyopathy, ventricular septal myectomy, biventricular ICD, HTN, HLD, T2DM, CKD, chronic diastolic CHF, and sleep apnea who presented to the ED with worsening right-sided chest pain and SOB. Today Hollis is in good spirits, but his pain has not resolved. He describes the pain as very sharp, localized that is worsened with deep breaths and coughing. When he coughs he describes feeling as if the cough comes from only his right chest. He has baseline intermittent rt chest pain, but this is much worse. In the past when he has experienced similar episodes of pain he says the cause was always "fluid related" and is surprised that does not seem to be the case this time. Yesterday he was having diarrhea, but mentions that that has resolved today. He also mentions new onset of headache and left-sided facial numbness that comes as he turns his head to the left. He feels a lump on the back of his head on the left behind his ear. These symptoms have happened to him before in the past. Review of Systems Respiratory: + cough, + pain on inspiration and + pain with cough Cardiovascular: + chest pain Neurologic: + numbness (intermittent L side of face) and + headache(s) Physical Exam Constitutional: well developed, well nourished and + obese Respiratory: Auscultation: lungs clear to auscultation bilaterally Cardiovascular: Rate/Rhythm: regular rate (pacemaker) and regular rhythm Results & Data ([facility]) Vital Signs (Past 12 Hours) Vital Signs Temp Pulse Pulse Resp BP BP Pulse Ox 01/29/20 11:41 36.8 C 65 20 122/76 93 01/29/20 10:07 01/29/20 10:03 60 01/29/20 09:59 01/29/20 07:50 36.4 C L 64 22 114/79 94 01/29/20 04:14 36.4 C L 74 18 122/85 95 01/29/20 03:35 60 16 97 Pulse Ox 01/29/20 11:41 01/29/20 10:07 94 01/29/20 10:03 01/29/20 09:59 94 01/29/20 07:50 01/29/20 04:14 01/29/20 03:35
[2020-01-29 13:56] VITALS: BP 122/85
--- NOTE | 2020-01-29 17:09 | Discharge Summary ---
Date of Service January 29, 2020 Admission HPI Per Admitting Provider This patient is a 41-year-old male with an extensive past medical history significant for HOCM status post ventricular myectomy, ICD/pacer placement, HTN, CKD stage III, DM 2, chronic diastolic CHF, MEENU, hyperlipidemia, chronic lower back pain, and morbid obesity who presents to the ER with acute on chronic right-sided chest pain and slightly worsening shortness of breath for the last 3 to 4 days. He also reports having a fever to 99.3 last night and 3 days of loose stools. He reports he has had these similar right-sided chest pains in the past and had work-ups for blood clots that were negative a couple years ago. The pain is worse with coughing and with taking a deep breath in. He has some mild sputum production with his cough. Some of the pain does migrate across to the center of his lower chest. He reports he does have loose stools on and off and attributes it sometimes to his diabetes medication. His diarrhea has now resolved after taking Pepto- Bismol. He does travel around a lot for work by driving. 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 No worsening lower extremity swelling. He does take his Lasix on most days but hold off on it when he is driving around a lot for work. He denies any recent weight gain. In the ER, his troponin was found to be slightly elevated at 0.053 which is not more than what it has been in the past. His proBNP was only minimally elevated at 522. A chest x-ray showed mild interstitial prominence but no overt CHF, no focal consolidation. An ECG showed an AV dual paced rhythm with a rate of 68. His CBC and CMP were otherwise normal except for a glucose of 269. He will be brought in on observation for a work-up for right-sided chest pain and positive troponin. Admission Exam Per Admitting Provider Constitutional: WD/WN, vitals as above + morbidly obese Eyes: PERRL, conjunctivae normal, anicteric sclerae ENMT: external ear and nose normal, oropharynx normal Neck: trachea midline, no thyromegaly Respiratory: normal respiratory effort, lungs clear to auscultation Cardiovascular: Rate/Rhythm: regular rate and regular rhythm Heart Sounds: no murmur Extremities: + edema (Trace pitting edema of the legs bilaterally) Chest (Breasts): Chest: normal inspection of chest Additional Comments: No tenderness to palpation over the right sided or anterior chest wall Gastrointestinal (Abdomen): normal bowel sounds, soft, nontender, no hepatosplenomegaly Musculoskeletal: Extremities: extremities normal to inspection; no cyanosis and no clubbing Skin: no rashes, warm and dry Neurologic: moves all extremities and awake; no focal motor deficits Psychiatric: A+Ox3, euthymic affect Lymphatic: no lymphedema Principal Diagnosis right sided chest pain - likely MSK in origin Discharge Exam Constitutional well-appearing 49 year old gentleman who is sitting at the edge of his hospital bed. He converses in full sentences and is alert and oriented throughout our conversation. NAD. Respiratory good respiratory effort with symmetric expansion of the chest. CTAB w/o crackles or wheezes. Cardiovascular normal rate, regular rhythm. s1 and s2 present without m/r/g Gastrointestinal (Abdomen) Abdomen is obese, soft, nontender, and nondistended to palpation. Musculoskeletal Examination of the chest does not reveal any rashes or structural deformities. Palpation of the right chest, just medial to the midaxillary line at the level of the nipple (where patient identifies his focalization of pain) does not reveal any structural abnormalities, and is nontender to the touch. Pressing across the ribs does not reveal any abnormalities and does not elicit any pain bilaterally. Skin on the left occipitoparietal scalp, there is a very small, focalized, and deflated area of edema (~2x2cm) that is nontender to palpation. It cannot be visually appreciated because of overyling hair. There is no surrounding erythema or discharge. Psychiatric A+Ox3, euthymic affect Discharge Data Allergies Allergy/AdvReac Type Severity Reaction Status Date / Time erythromycin base Allergy Severe Anaphylaxis Verified 01/28/20 13:25 Consultations 01/28/20 14:27 ED Decision to Admit Stat Ordered Studies 01/28/20 18:54 CT chest wo con Urgent 01/28/20 22:11 US gallbladder Urgent Diabetes Follow up Diabetes Follow-up Needed for HgbA1c >9% Hospital Course (1) Right-sided chest pain: Mr. Hollis Connolly is a 49 year old gentleman with a notable past medical history of HOCM s/p ventricular myectomy, HFpEF s/p dual-chamber ICD/pacer placement, HTN, CKD Stage III, ID-T2DM, MEENU, HLD, chronic low back pain, and morbid obesity who presented to [facility] on 01/28 for focalized, right-sided precordial chest pain exacerbated with coughing/deep inspiration x 4-5 days that is associated with a cough and an increase in his baseline dyspnea. Also endorses diarrhea over last few days. He remained hemodynamically stable throughout his admission. Chest pain - Clinically, patient reports an atypical, band-like right-sided precordial pain that is sharp and exacerbated with coughing and deep inspiration x 4-5 days without specific trigger/trauma. Concurrently reports an intermittent cough that is associated with a mild increase in his baseline dyspnea. - In the ED, underwent testing to further evaluate etiology of this atypical chest pain: - Serial troponins were mildly positive at around 0.05 -- however, based on previous admission data, this does seem to be somewhat baseline for him, especially in the context of his HoCM. Likely represents chronic, mild demand ischemia. - ECG revealed AV-dual paced rhythm without any acute ST-T abnormalities - proBNP was minimally elevated, but appears baseline for patient ( ) - D-Dimer was negative -- r/o PE - COVID-19 negative - CT of the Chest: No significant pathology such as rib fx / consolidation. It was noted, however, that there were several pulmonary nodules and a distended gallbladder - Subsequently admitted to obs for continued workup of this atypical chest pain - Upon admission, was noted to have a very mild transaminitis with AST 48, ALT 81 (increased from 30 and 73 at presentation at ED) -- given the finding appreciated on CT chest with a mildly distended gallbladder and the location of the chest pain on the right side, underwent RUQ US - RUQ US: Demonstrated fatty changes within liver, alongside a mildly distended gallbladder without wall thickening or gallstones - Unlikely source of pain given absence of pathologic or inflammatory findings - Given his extensive and relatively benign workup in the context of his known past medical history, description of pain is most likely 2/2 an MSK-related process (myofascial pain) >> pleuritis - Trial Tylenol 650mg PO t.i.d. for 48 hours in attempt to relieve pain - Follow-up with PCP to monitor progress / resolution Pulmonary Nodules - On admission CT of the chest, was noted to have multiple bilateral pulmonary nodules that measured up to 6mm - Per current guidelines (Fleischner Criteria), recommend following-up with imaging at 3-6 months as an outpatient, then consider at 18-24 months Undertreated ID-DM2 - Patient does report that he hasn't been taking insulin at home because of frustration with controlling his sugars - Demonstrated hyperglycemia from 230-280s throughout his stay here - Last A1c was 10.1 in our system in 2018 - Recheck 01/28 revealed HbA1c = 9.3 - Home insulin regimen modified to: NovoLog 40 units, Lantus 30U qAM with Novolog sliding scale before meals + qHS while inpatient - Insulin regimen at D/C: Lantus 40U qAM/5U in PM + Novolog 6-14 U with meals - Continue metformin 1000mg PO b.i.d. - Endocrine referral will be placed upon discharge for continued management of undertreated ID-DM2 - OneTouch Ultra Test Strips + Delica Lancets for BG monitoring/recording t.i.d. at home Chronic Medical Issues: Hypertrophic Cardiomyopathy (s/p ventricular myectomy and ICD placement): Continue to follow with Dr. Hogan (cardiology) upon discharge Chronic Kidney Disease, Stage II/III (Baseline Cr ~1.1): Through his short observation here, creatines ranged from 1.06 - 1.40 (WNL) Hypertension: - BPs remained in the 120/70 range throughout his admission here - Continued home diltiazem 180mg PO daily - Continued home Lasix 80mg PO b.i.d. + potassium supplementation HLD: Continued home atorvastatin HFpEF: Was at his normal weight with mild edema here -- continued home Lasix 80mg PO b.i.d. with potassium supplementation MEENU: Home CPAP Chronic back pain: morphine PRN for pain / methocarbamol PRN / gabapentin 300mg PO t.i.d. FULL CODE Total Time Total Time Spent Total Time Spent (In Minutes): . Discharge Plan Discharge Items Patient Disposition: Home - Self-Care Reason For Visit: CHEST PAIN Discharge Diagnosis: Right sided chest pain - likely musculoskeletal origin Activity: Resume your previous activity Non-emergency contact: Primary Care Provider Call non-emergency contact if: you have any medication questions and your symptoms worsen Follow-up/Referrals: Tiffanie Dotson CRNP, CDE [Nurse Practitioner] - (A nurse from the Endocrinology office who will call you on Saturday to arrange an appointment time. If you don't hear from them, please call [phone] to schedule.) Alfred Davis [Primary Care Provider] - 02/09/20 9:30 am Diet: Carb Consistent or DM2 and Heart Healthy Addtl Attending Provider Instructions: You were admitted for right side chest pain associated with cough and deep breath. Test for pulmonary embolism was negative. Chest CT scan didn't show any concerning finding in regards to your pain. You were kept on heart monitor in the hospital and didn't find any concerning heart rhythm. Your pain is likely due to rib joint irritation. You should take tylenol 650mgs three times a day for 48hrs to help with pain and follow up with your family physician. If pain worsens please call your family physician to get evaluated sooner. Please set up an appointment with your primary care provider within 1-2 weeks of discharge to discuss this visit. We also recommend discussing the following: - Because your liver enzymes were just slightly increased compared to baseline (and because your gallbladder imaging demonstrated mild enlargement - but not concerning for infection based on the findings), we recommend you discuss whether or not to pursue additional scans (e.g., a HIDA scan) for this in the future. - On your chest CT scan, you were found to have multiple pulmonary nodules. Based on current guidelines, we recommend following up at 3-6 months with an other scan to remeasure the size of these nodules to check for growth Pending Studies at Discharge: No Stand-Alone Forms: My [employer], Smoking Cessation Medications and DC Order Prescriptions: Continued methocarbamol 500 mg tablet 500 - 1,000 mg PO TID PRN (Reason: Muscle Spasm) RF: 0 atorvastatin 10 mg tablet 10 mg PO QAM RF: 0 aspirin 81 mg Tablet,Delayed Release (Dr/Ec) 81 mg PO QAM RF: 0 potassium chloride 20 mEq Tablet Extended Release 20 meq PO QAM PRN (Reason: Other) RF: 0 metoprolol succinate 100 mg tablet extended release 24 hr 100 mg PO BID RF: 0 metformin 1,000 mg tablet 1,000 mg PO BID RF: 0 diltiazem HCl [Cartia XT] 180 mg capsule,extended release 24hr 180 mg PO QAM RF: 0 Lantus Solostar U-100 Insulin 100 unit/mL (3 mL) insulin pen 40 unit subcut QAM RF: 0 Januvia 100 mg tablet 100 mg PO QAM RF: 0 insulin aspart U-100 [Novolog Flexpen U-100 Insulin] 100 unit/mL (3 mL) insulin pen 6 - 14 unit SUBCUT TID RF: 0 insulin aspart U-100 [Novolog Flexpen U-100 Insulin] 100 unit/mL (3 mL) insulin pen 5 unit SUBCUT HS RF: 0 furosemide 80 mg tablet 80 mg PO BID17 PRN (Reason: Fluid Retention) RF: 0 gabapentin 100 mg capsule 100 mg PO TID Qty: 30 RF: 0 Lantus Solostar U-100 Insulin 100 unit/mL (3 mL) Insulin Pen 5 units subcut HS RF: 0 Discharge Orders: Discharge Order (Routine); Ordered 01/29/20 Ordered By: Clarke Amaro Admission Data Admit Date/Time: 01/28/20 15:24 Attending Provider: Radha Garcia Admit Provider: Marilynn Briseno Primary Care Provider: Alfred Davis Other Providers: Marilynn Briseno Other Interventions: Discharge Summary Assessment (RN) Last Done: 01/29/20 13:54 Supervising Physician Co-Signing Physician Notes Resident Physician Supervision Note: I independently interviewed and examined the patient and verified the ramirez history and physical, reviewed labs and image studies, discussed the case with the resident Dr. Amaro and agree with the findings and care plan. Resident Activity Tracking Resident Involvement: Resident Care Provided Care Provided: Adult Hospital Medicine
--- NOTE | 2020-01-29 17:47 | Communication Note ---
Date of Service: January 29, 2020 Patient needing prescription of one touch ultra test strips and Delica lancets - rx called in to [facility] pharmacy Note sent to nurse navigator to set up endocrine referral for DM management.
== END 2020-01-29 15:19 | disposition home or self-care (01) ==
LOC: ED 11:11 → 2S 11:11 → SUATTDRO 15:24 → 2S 17:28
DX: Z79.4 Long term (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; I13.0 Hypertensive heart and chronic kidney disease with heart failure and stage 1 through stage 4 chronic kidney disease, or unspecified chronic kidney disease; N18.3 Chronic kidney disease, stage 3 (moderate); Z68.41 Body mass index [BMI] 40.0-44.9, adult; R07.9 Chest pain, unspecified; M54.9 Dorsalgia, unspecified; I25.10 Atherosclerotic heart disease of native coronary artery without angina pectoris; Z87.891 Personal history of nicotine dependence; Z79.82 Long term (current) use of aspirin; E11.22 Type 2 diabetes mellitus with diabetic chronic kidney disease; G47.33 Obstructive sleep apnea (adult) (pediatric); E66.01 Morbid (severe) obesity due to excess calories; M19.90 Unspecified osteoarthritis, unspecified site; G89.29 Other chronic pain; Z79.899 Other long term (current) drug therapy; I50.32 Chronic diastolic (congestive) heart failure; E78.5 Hyperlipidemia, unspecified; Z95.0 Presence of cardiac pacemaker

== ENCOUNTER 2020-04-16 23:30 | Observation (INO) ==
[2020-04-16] MEDS ORDERED: fentaNYL citrate 100 MCG/2 ML VIAL IV STA (23:37)
[2020-04-16] MEDS ORDERED: NITROGLYCERIN SL 0.4 MG/TAB TAB SL STA (23:37)
[2020-04-16 23:46] LABS: Basophils # (auto) 0.03 K/uL (0-0.2); Basophils % (auto) 0.5 %; Eosinophils # (auto) 0.15 K/uL (0-0.5); Eosinophils % (auto) 2.3 %; Hematocrit (blood only) 43.8 % (42-52); Hemoglobin 15.2 g/dL (14.0-18.0); Immature Granulocytes # (auto) 0.02 K/uL (0.00-0.02); Immature Granulocytes % (auto) 0.3 %; Lymphocytes # (auto) 1.64 K/uL (1.2-3.4); Lymphocytes % (auto) 25.3 %; Mean Corpuscular Hemoglobin 29.7 pg (25-34); Mean Corpuscular Hgb Conc 34.7 g/dL (32-36); Mean Corpuscular Volume 85.7 fL (80-100); Monocytes # (auto) 0.61 K/uL (0.11-0.59); Monocytes % (auto) 9.4 %; Neutrophils # (auto) 4.03 K/uL (1.4-6.5); Neutrophils % (auto) 62.2 %; Platelet Count 183 K/uL (130-400); RDW Coefficient of Variation 13.4 % (11.5-14.5); RDW Standard Deviation 41.9 fL (36.4-46.3); Red Blood Count 5.11 M/uL (4.7-6.1); White Blood Count 6.48 K/uL (4.8-10.8)
--- NOTE | 2020-04-16 23:53 | Emergency Department Note ---
Impression & Plan Left-sided chest pain ED Provider Note Name: HOLLIS MARIN Age: 49 Sex: M Arrives Via: Ambulance Informant: Patient, EMS ED Provider: Hollis Sanchez MD Chief Complaint: Chest Pain Impression: Left sided chest pain Medical Decision Makin yr old male with known Cardiomyopathy s/p myomectomy & MVR repair, with CHF, HTN, DMII who arrives with left sided chest pain radiating to left jaw. Anterior T wave inversions more pronounced on EKG. He is a bit hypertensive and this improved with SLNTG which also improved pain. Already ASA 324mg PO by EMS. Cath 2018 revealed no CAD though there was myocardial bridging in to mid LAD. CXR without overt heart failure. Labs reveal troponin elevation which is at baseline for patient. Patient stable and comfortable throughout. Hospitalist in to evaluate further. Prior Medical Record and Triage/Nursing Notes reviewed by Me Additional history obtained from chart Differentials:Cardiac ischemia, aortic dissection, pulmonary embolism, pneumothorax, pneumonia, pericarditis, myocarditis, esophageal rupture, GERD, cholecystitis, pancreatitis, musculoskeletal, as well as other pathologies. Vital Signs: reviewed and remarkable for HTN Interventions: NSLTG, Fentanyl IV Labs:Reviewed and remarkable for baseline troponin elevation Imaging:X ray results are stated below per my interpretation: Chest: 1 view: No infiltrate, no effusion, Cardiomegaly without overt CHF EKG:Per My Interpretation: Indication Chest Pain: AV dual paced 76 BPM with qtc [address] depressions. Compared to 01/28/20 there is slight worsening of anterior ST depressions though no overt Stemi appreciated. Cardiac/Tele Monitoring: Cardiac Monitoring: An Order was placed for continuous cardiac monitoring. The monitor shows a rate of 70 with a paced rhythm. Consults:Dr Ryan COOK Hospitalist Plan: Disposition:Hospitalization. Condition: Good History of Present Illness:49 yr old male arrives for evaluation of chest pain. Notes several days on and off left lower jaw discomfort. This has been non specific and mild. Tonight he started having left chest pain. Pressure like in nature. Radiates to left jaw. no shob, cough, fevers, chills, syncope, palpitaitons, nuasea, vomiting, abdominal pain, back pain, leg swelling beyond normal, rashes nor other symptoms. Nothing seemed to make pain better nor worse . He was given ASA 324mg PO and SLNTG x 1 by EMS with moderate improvement in discomfort. Admits history of hypertrophic cardiomyopathy with myomectomy, mitral valve repair and pacemaker and known CHF though no previous CAD/Stenting. Cath in 2018 showed no CAD though there is myocardial bridging in to mid LAD. ROS: See above HPI for pertinent positives & negatives. A total of 10 systems reviewed and were otherwise negative. Past Medical History:CHF, HTN, Hyperlipidemia, DMII, MEENU Past Surgical History:Cardiac Myomectomy, MVR, appendectomy, scrotal surgery Family History:DMII Social History:Smokes, +ETOH, Lives with mother Home Medications:See Below Allergies:Erythromycin Vitals:Blood Pressure: 156/89, Pulse 78, RR 18, T 37.4C, O2 94% on RA Physical Exam: GENERAL: Patient is chronically unwell appearing and in mild distress. EYES: No scleral icterus, unremarkable pupils. ENT: Mucous membranes moist, no nasal congestion. NECK: No masses appreciated, nomeningismus, trachea is midline. RESPIRATORY: No dyspnea. Clear to auscultation and equal bilaterally. No wheeze, no rhonchi. CARDIOVASCULAR: Regular rate and rhythm.No murmurs, rubs, gallops appreciated. GASTROINTESTINAL: Abdomen soft, non-tender, no peritonitis.Bowel sounds po sitive.No masses appreciated. BACK: No midline tenderness, no CVA tenderness EXTREMITIES: Normal motion all extremities, no cyanosis, 1+ pitting edema bilateral lower legs NEUROLOGIC: Alert and oriented, no acute motor or sensory deficits, no focal weakness, cranial nerves grossly intact. SKIN: No rash, no jaundice, no diaphoresis. PSYCH: Appropriate GCS: 15 ED Course: Times/Reassessments: stable, feeling improved, comfortable with hospitalization Hollis Sanchez MD Past Med/Surg History Medical History (Updated 04/17/20 @ 05:01 by Hollis Sanchez MD) Acute hyperglycemia Biventricular ICD (implantable cardioverter-defibrillator) in place (~08/2017) Single-chamber ICD 2006; Dual-chamber ICD 04/2017; Biventricular ICD 08/06/17 - [employer] Chronic back pain Chronic diastolic congestive heart failure CKD (chronic kidney disease) Closed fracture of cervical spine (Unknown) Depression NO MEDS History of cardiac arrest 12/2015 History of complete heart block HTN (hypertension) Hyperlipidemia Hypertrophic cardiomyopathy (Unknown) SEES DR. SAWYER Obesity Osteoarthritis Pulmonary nodules Sleep apnea CPAP Type 2 diabetes mellitus Valvular heart disease Mitral valve repair Surgical History History of appendectomy History of cardiac cath X 4 - [facility] 2017 - PACER MALFUNCTION - NO STENTS/ANGIOP LASTY - FOLLOWS W/ DR. SAWYER History of esophagogastroduodenoscopy (EGD) History of mitral valve repair DONE AT [facility] DEC 2015 Hx of surgical procedure SELF CONTAINED TUMOR REMOVED FROM SCROTUM S/P ventricular septal myectomy (~12/2015) Family History Mother Family history of reaction to anesthesia PONV Grandfather (Maternal) Family history of diabetes mellitus Grandmother (Maternal) Family history of diabetes mellitus Social History Smoking Status: Former smoker Tobacco Type: Smokeless Tobacco (Dip or Chew) Second Hand Exposure: Yes; Hx Alcohol Use: Yes Alcohol type: beer and hard liquor Hx Substance Use: Yes Last Used Substance: Unknown Last Used Substance Other:: 1 WEEK AGO Substance Use Type Other:: LAST USE 2 YRS AGO Preferred Language: Azeri Communication Ability: Effective Housekeeper Child Care Required: No Beliefs That Will Affect Care: None Current Living Situation: Family Current Living Situation Comment: LIVES WITH MOTHER Other Information That Helps Us Care for You: No Feels Safe at Home: Yes Safety Concerns: Feels Safe At This Time Assistive Devices: CPAP and Glasses Allergies Allergies Allergy/AdvReac Type Severity Reaction Status Date / Time erythromycin base Allergy Severe Anaphylaxis Verified 04/17/20 00:41 Home Meds Home Medications Medication Instructions Recorded Confirmed aspirin 81 mg PO QAM 01/21/18 04/17/20 atorvastatin 10 mg PO QAM 01/21/18 04/17/20 methocarbamol 500 - 1,000 mg PO TID PRN 01/21/18 04/17/20 potassium chloride 20 meq PO QAM PRN 01/21/18 04/17/20 metformin 1,000 mg PO BID 06/28/18 04/17/20 Lantus Solostar U-100 Insulin 40 unit SUBCUT QAM 12/19/18 04/17/20 diltiazem HCl [Cartia XT] 180 mg PO QAM 12/19/18 04/17/20 metoprolol succinate 100 mg 100 mg PO DAILY tab 12/25/18 04/17/20 tablet,extended release 24 hr Januvia 100 mg PO QAM 02/11/19 04/17/20 insulin aspart U-100 [Novolog 5 unit SUBCUT HS 07/31/19 04/17/20 Flexpen U-100 Insulin] insulin aspart U-100 [Novolog 6 - 14 unit SUBCUT TID 07/31/19 04/17/20 Flexpen U-100 Insulin] furosemide 80 mg PO BID17 PRN 08/13/19 04/17/20 Lantus Solostar U-100 Insulin 5 units SUBCUT HS 01/29/20 04/17/20 hydrocodone-acetaminophen 1 tab PO DAILY PRN 04/17/20 04/17/20 meloxicam 15 mg PO HS 04/17/20 04/17/20 Results & Data (ED) Vital Signs Vital Signs - 24 hr 04/16/20 23:37 04/17/20 00:02 04/17/20 01:30 Temperature 37.4 C Temperature Source Oral Pulse Rate 78 Pulse Rate [Apical] 68 60 Respiratory Rate 18 18 16 Blood Pressure 156/89 H Blood Pressure [Right Arm] 136/81 131/74 Blood Pressure Mean 111 Blood Pressure Mean [Right Arm] 99 93 Pulse Oximetry 94 93 94 Oxygen Delivery Method Room Air Room Air Room Air Sepsis Recent Fever Within 48 Hours No Sepsis New/Unexplained Change in Mental Status N/A Sepsis Action Taken by Nursing No Action Required Laboratory Data Result diagrams: 04/16/20 22:55 04/16/20 22:55 Lab Results 04/16/20 04/16/20 04/16/20 Range/Units 22:55 22:55 22:55 WBC 6.48 (4.8-10.8) K/uL RBC 5.11 (4.7-6.1) M/uL Hgb 15.2 (14.0-18.0) g/dL Hct 43.8 (42-52) % MCV 85.7 (80-100) fL MCH 29.7 (25-34) pg MCHC 34.7 (32-36) g/dL RDW Std Deviation 41.9 (36.4-46.3) fL RDW Coeff of Valeria 13.4 (11.5-14.5) % Plt Count 183 (130-400) K/uL MPV 12.0 H (7.4-10.4) fL Immature Gran % (Auto) 0.3 % Neut % (Auto) 62.2 % Lymph % (Auto) 25.3 % Charlton % (Auto) 9.4 % Eos % (Auto) 2.3 % Baso % (Auto) 0.5 % Neut # (Auto) 4.03 (1.4-6.5) K/uL Lymph # (Auto) 1.64 (1.2-3.4) K/uL Charlton # (Auto) 0.61 H (0.11-0.59) K/uL Eos # (Auto) 0.15 (0-0.5) K/uL Baso # (Auto) 0.03 (0-0.2) K/uL Immature Gran # (Auto) 0.02 (0.00-0.02) K/uL PT 10.6 (9.0-12.0) Seconds INR 1.0 (0.9-1.1) APTT 28.3 (21.0-31.0) Seconds PTT Ratio 1.0 Sodium 140 (136-145) mmol/L Potassium 3.9 (3.5-5.1) mmol/L Chloride 107 (98-107) mmol/L Carbon Dioxide 28 (21-32) mmol/L Anion Gap 6.0 (3-11) BUN 21 H (7-18) mg/dl Creatinine 1.05 (0.6-1.4) mg/dl Est Cr Clr Drug Dosing 140.9 ml/min Est GFR ( Amer) 96.8 Est GFR (Non-Af Amer) 83.5 BUN/Creatinine Ratio 19.6 (10-20) Glucose 183 H (70-99) mg/dl Calcium 9.4 (8.5-10.1) mg/dl Magnesium 1.9 (1.8-2.4) mg/dl Total Bilirubin 0.5 (0.2-1) mg/dl Direct Bilirubin 0.2 (0-0.2) mg/dl AST 37 (15-37) U/L ALT 77 (12-78) U/L Alkaline Phosphatase 87 (45-117) U/L Troponin I 0.053 H* (0-0.045) ng/ml Total Protein 7.3 (6.4-8.2) gm/dl Albumin 3.7 (3.4-5.0) gm/dl Lipase 96 (73-393) U/L Administered Medications Acetaminophen (Acetaminophen 325 Mg Tab) 650 mg PO Q4H PRN PRN Reason: Pain or Fever Stop: 05/17/20 02:45 Last Admin: 04/17/20 03:02 Dose: 650 mg Documented by: [id number] Discontinued Medications Fentanyl Citrate (Fentanyl Citrate 100 Mcg/2 Ml Vial) 75 mcg IV NOW STA Stop: 04/16/20 23:38 Last Admin: 04/16/20 23:49 Dose: 75 mcg Documented by: [id number] Nitroglycerin (Nitroglycerin Sl 0.4 Mg/Tab Tab) 0.4 mg SL NOW STA Stop: 04/16/20 23:38 Last Admin: 04/16/20 23:49 Dose: 0.4 mg Documented by: [id number] Discharge Plan Visit Data Chief Complaint: Chest Pain Stated Complaint: CHEST PRESSURE/JAW PAIN ED Provider: Hollis Sanchez Discharge Problem: Left-sided chest pain Patient Disposition: Admitted As Inpatient Discharge Instructions Interventions: ED Discharge Assessment Last Done: 04/17/20 02:34
[2020-04-16 23:58] LABS: Partial Thromboplastin Time 28.3 Seconds (21.0-31.0); Prothrombin Time 10.6 Seconds (9.0-12.0)
--- NOTE | 2020-04-16 23:59 | XRay Report ---
SINGLE VIEW CHEST CLINICAL HISTORY: Atypical chest pain. FINDINGS: 2 AP, portable, upright chest radiographs are compared to chest x-ray and chest CT dated . A 3-lead cardiac AICD is unchanged in position. The patient is status post midline sternotom y. The heart is mildly enlarged. The pulmonary vasculature is noncongested. Chronic interstitial thic kening is similar to previous. No airspace consolidation or large pleural effusion is identified. No pneumothorax is seen. The bony thorax is grossly intact. IMPRESSION: 1. Cardiomegaly and AICD. There is no radiographic evidence of congestive failure. 2. There is no airspace consolidation or large pleural effusion. ACT 112: Negative or not required by law. Electronically signed by: Nicholas Vasquez M.D. 04/16/2020 11:58 PM
[2020-04-17 00:03] LABS: Albumin Level 3.7 gm/dl (3.4-5.0); BUN Creatinine Ratio 19.6 (10-20); Bilirubin Direct 0.2 mg/dl (0-0.2); Calcium 9.4 mg/dl (8.5-10.1); Creatinine Clr Calc Pharmacy 140.9 ml/min; Est GFR (African American) 96.8; Est GFR (Non-African American) 83.5; Magnesium 1.9 mg/dl (1.8-2.4); Potassium 3.9 mmol/L (3.5-5.1)
[2020-04-17 00:27] LABS: Bilirubin,Total 0.5 mg/dl (0.2-1); Total Protein 7.3 gm/dl (6.4-8.2); Troponin I 0.053 ng/ml (0-0.045)
--- NOTE | 2020-04-17 02:29 | History & Physical Report ---
Date of Service April 17, 2020 Assessment & Plan (1) Left-sided chest pain: Left-sided chest pain/chronically elevated troponin/hypertrophic cardiomyopathy/status post mitral valve repair/status post ventricular septal myectomy/chronic diastolic CHF- The patient will be admitted to telemetry for serial cardiac enzymes, serial EKG's, cardiac rhythm monitoring and a 2-D echocardiogram with Dopplers. Continue aspirin 81 mg daily, diltiazem 180 mg every morning, metoprolol succinate 100 mg p.o. every morning. History of furosemide 80 mg p.o. 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 Hogan Present on Admission?: Yes (2) Hypertrophic cardiomyopathy: (3) S/P mitral valve repair: (4) S/P ventricular septal myectomy: (5) HTN (hypertension): (6) Chronic diastolic congestive heart failure: (7) Elevated troponin: (8) Hyperlipidemia: Continue atorvastatin 10 mg daily Present on Admission?: Yes (9) Type 2 diabetes mellitus: Continue Lantus insulin 40 units subcu every morning and 5 units subcu at bedtime. Hold Januvia and Metformin NovoLog coverage per scale placed on Accu-Cheks before meals and at bedtime with Present on Admission?: Yes (10) Sleep apnea: CPAP at bedtime as needed Present on Admission?: Yes History of Present Illness Chief Complaint: Patient presents to the emergency department with left-sided chest pain that began earlier in the day prior to arrival Primary Care Provider: Alfred Davis The patient is a 49-year-old male with a past medical history including obesity, pulmonary nodules, right-sided chest pain, elevated troponin, status post ventricular septal myectomy, status post mitral valve repair, hypertrophic cardiomyopathy, biventricular ICD in place, CKD, hypertension, hyperlipidemia, chronic diastolic CHF, diabetes mellitus type 2, MEENU, chronic back pain, chronic dyspnea on exertion and palpitations. He was most recently admitted to [facility] from 01/27-01/28 for right-sided chest pain, which after appropriate work- up was thought to be more related to noncardiac issues. Work-up in the emergency department tonight included the following abnormal labs: Glucose 183, troponin 0 0.053. Troponin is typically chronically elevated with range 0.053-0.170 going back to 08/02/2017 Patient was COVID-19 negative. Peak temperature was 99.3 F, and pulse ox was as low as 93% on room air. Chest x-ray showed presence of AICD and chronic congestion/body habitus artifact. EKG showed no acute findings Allergies Allergy/AdvReac Type Severity Reaction Status Date / Time erythromycin base Allergy Severe Anaphylaxis Verified 04/17/20 00:41 Home Medications Medication Instructions Recorded Confirmed Type aspirin 81 mg PO QAM 01/21/18 04/17/20 History atorvastatin 10 mg PO QAM 01/21/18 04/17/20 History methocarbamol 500 - 1,000 mg PO TID PRN 01/21/18 04/17/20 History potassium chloride 20 meq PO QAM PRN 01/21/18 04/17/20 History metformin 1,000 mg PO BID 06/28/18 04/17/20 History Lantus Solostar U-100 Insulin 40 unit SUBCUT QAM 12/19/18 04/17/20 History diltiazem HCl [Cartia XT] 180 mg PO QAM 12/19/18 04/17/20 History metoprolol succinate 100 mg 100 mg PO DAILY tab 12/25/18 04/17/20 History tablet,extended release 24 hr Januvia 100 mg PO QAM 02/11/19 04/17/20 History insulin aspart U-100 [Novolog 5 unit SUBCUT HS 07/31/19 04/17/20 History Flexpen U-100 Insulin] insulin aspart U-100 [Novolog 6 - 14 unit SUBCUT TID 07/31/19 04/17/20 History Flexpen U-100 Insulin] furosemide 80 mg PO BID17 PRN 08/13/19 04/17/20 History Lantus Solostar U-100 Insulin 5 units SUBCUT HS 01/29/20 04/17/20 History hydrocodone-acetaminophen 1 tab PO DAILY PRN 04/17/20 04/17/20 History meloxicam 15 mg PO HS 04/17/20 04/17/20 History Past Med/Surg History Medical History (Updated 04/17/20 @ 05:01 by Hollis Sanchez MD) Acute hyperglycemia Biventricular ICD (implantable cardioverter-defibrillator) in place (~08/2017) Single-chamber ICD 2006; Dual-chamber ICD 04/2017; Biventricular ICD 08/06/17 - [employer]onic Chronic back pain Chronic diastolic congestive heart failure CKD (chronic kidney disease) Closed fracture of cervical spine (Unknown) Depression NO MEDS History of cardiac arrest 12/2015 History of complete heart block HTN (hypertension) Hyperlipidemia Hypertrophic cardiomyopathy (Unknown) SEES DR. SAWYER Obesity Osteoarthritis Pulmonary nodules Sleep apnea CPAP Type 2 diabetes mellitus Valvular heart disease Mitral valve repair Surgical History History of appendectomy History of cardiac cath X - [facility] - [facility] REC[facility] 2017 - PACER MALFUNCTION - NO STENTS/ANGIOPLASTY - FOLLOWS W/ DR. SAWEYR History of esophagogastroduodenoscopy (EGD) History of mitral valve repair DONE AT [place] DEC 2015 Hx of surgical procedure SELF CONTAINED TUMOR REMOVED FROM SCROTUM S/P ventricular septal myectomy (~12/2015) Family History Mother Family history of reaction to anesthesia PONV Grandfather (Maternal) Family history of diabetes mellitus Grandmother (Maternal) Family history of diabetes mellitus Social History Smoking Status: Former smoker Tobacco Type: Smokeless Tobacco (Dip or Chew) Second Hand Exposure: Yes; Hx Alcohol Use: Yes Alcohol type: beer and hard liquor Hx Substance Use: Yes Last Used Substance: Unknown Last Used Substance Other:: 1 WEEK AGO Substance Use Type Other:: LAST USE 2 YRS AGO Preferred Language: Guyanese Communication Ability: Effective Fur Finisher Required: No Beliefs That Will Affect Care: None Current Living Situation: Family Current Living Situation Comment: LIVES WITH MOTHER Other Information That Helps Us Care for You: No Feels Safe at Home: Yes Safety Concerns: Feels Safe At This Time Assistive Devices: CPAP and Glasses Review of Systems Review of Systems: The patient denies palpitations, change in chronic shortness of breath or dyspnea on exertion, cough, lower extremity swelling, sore throat, fevers, chills, sweats, weight change, fatigue, nausea, vomiting, d iarrhea , constipation, abdominal pain, pelvic pain, blood in urine or stool, dysuria, urinary frequency or urgency, lightheadedness, dizziness, headache, memory loss, loss of consciousness, rash, abnormal bruising or bleeding, imbalance, focal or generalized weakness, numbness or tingling in arms or legs, generalized arthralgias or myalgias, back or neck pain, or night sweats. The review of systems is otherwise negative other than for that already noted above, and at least 10 systems have been reviewed. Physical Exam Physical Exam: The patient is awake, alert and oriented 3, normocephalic and atraumatic, sitting upright in bed and in no acute distress. HEENT--PERRL, EOMI, mucous membranes and oropharynx normal. Neck--supple. No JVD. No bruits. Thyroid normal, trachea midline, no adenopathy. Heart--normal S1 and S2. No murmurs, rubs or gallops. Lungs--clear bilaterally, no respiratory distress, no accessory muscle use. Abdomen--normal bowel sounds and soft. Nontender. Nondistended. Morbidly obese Extremities--no cyanosis or clubbing. No edema. Dermatologic--normal skin turgor, normal color, no abnormal lymph nodes, no rash. Neurologic--cranial nerves II through XII grossly intact. Rheumatologic--normal range of motion. Psychiatric--normal affect. Results & Data Results & Data ([facility]) Vital Signs (Past 12 Hours) Vital Signs Temp Pulse Pulse Resp BP BP Pulse Ox 04/17/20 02:25 60 17 120/84 95 04/17/20 01:30 60 16 131/74 94 04/17/20 00:02 68 18 136/81 93 04/16/20 23:37 99.3 F 78 18 156/89 H 94 Laboratory Results Laboratory Results WBC 6.48 K/uL (4.8-10.8) 04/16/20 22:55 RBC 5.11 M/uL (4.7-6.1) 04/16/20 22:55 Hgb 15.2 g/dL (14.0-18.0) 04/16/20 22:55 Hct 43.8 % (42-52) 04/16/20 22:55 MCV 85.7 fL (80-100) 04/16/20 22:55 MCH 29.7 pg (25-34) 04/16/20 22:55 MCHC 34.7 g/dL (32-36) 04/16/20 22:55 RDW Std Deviation 41.9 fL (36.4-46.3) 04/16/20 22:55 RDW Coeff of Valeria 13.4 % (11.5-14.5) 04/16/20 22:55 Plt Count 183 K/uL (130-400) 04/16/20 22:55 MPV 12.0 fL (7.4-10.4) H 04/16/20 22:55 Immature Gran % (Auto) 0.3 % 04/16/20 22:55 Neut % (Auto) 62.2 % 04/16/20 22:55 Lymph % (Auto) 25.3 % 04/16/20 22:55 Coffee % (Auto) 9.4 % 04/16/20 22:55 Eos % (Auto) 2.3 % 04/16/20 22:55 Baso % (Auto) 0.5 % 04/16/20 22:55 Neut # (Auto) 4.03 K/uL (1.4-6.5) 04/16/20 22:55 Lymph # (Auto) 1.64 K/uL (1.2-3.4) 04/16/20 22:55 Coffee # (Auto) 0.61 K/uL (0.11-0.59) H 04/16/20 22:55 Eos # (Auto) 0.15 K/uL (0-0.5) 04/16/20 22:55 Baso # (Auto) 0.03 K/uL (0-0.2) 04/16/20 22:55 Immature Gran # (Auto) 0.02 K/uL (0.00-0.02) 04/16/20 22:55 PT 10.6 Seconds (9.0-12.0) 04/16/20 22:55 INR 1.0 (0.9-1.1) 04/16/20:55 APTT 28.3 Seconds (21.0-31.0) 04/16/20 22: PTT Ratio 1.0 04/16/20 22:55 Sodium 140 mmol/L (136-145) 04/16/20 22:55 Potassium 3.9 mmol/L (3.5-5.1) 04/16/20 22:55 Chloride 107 mmol/L (98-107) 04/16/20 22:55 Carbon Dioxide 28 mmol/L (21-32) 04/16/20 22:55 Anion Gap 6.0 (3-11) 04/16/20 22:55 BUN 21 mg/dl (7-18) H 04/16/20 22:55 Creatinine 1.05 mg/dl (0.6-1.4) 04/16/20 22:55 Est Cr Clr Drug Dosing 140.9 ml/min 04/16/20 22:55 Est GFR ( Amer) 96.8 04/16/20 22:55 Est GFR (Non-Af Amer) 83.5 04/16/20 22:55 BUN/Creatinine Ratio 19.6 (10-20) 04/16/20 22:55 Glucose 183 mg/dl (70-99) H 04/16/20 22:55 Calcium 9.4 mg/dl (8.5-10.1) 04/16/20 22:55 Magnesium 1.9 mg/dl (1.8-2.4) 04/16/20 22:55 Total Bilirubin 0.5 mg/dl (0.2-1) 04/16/20 22:55 Direct Bilirubin 0.2 mg/dl (0-0.2) 04/16/20 22:55 AST 37 U/L (15-37) 04/16/20 22:55 ALT 77 U/L (12-78) 04/16/20 22:55 Alkaline Phosphatase 87 U/L (45-117) 04/16/20 22:55 Troponin I 0.053 ng/ml (0-0.045) H* 04/16/20 22:55 Total Protein 7.3 gm/dl (6.4-8.2) 04/16/20 22:55 Albumin 3.7 gm/dl (3.4-5.0) 04/16/20 22:55 Lipase 96 U/L (73-393) 04/16/20 22:55 SARS-CoV-2 Ag (Rapid) Negative (Negative) 04/17/20 Unknown Diagnostic Findings [facility], [phone] XRay Report Patient: HOLLIS MARIN Date: 04/16/20MR#: [id number]: [id number] RDAcct ID:[id number]: Date: 1970[facility] Zip: [place] [id number]: 49Location: EDSex: MRoom/Bed:Att Phy:Diagnosis: CHEST PRESSURE/JAW PAINPri Phy: Alfred Davis M.D.Service Date: 04/16/20[facility] Phy:Interpreting Phy: Nicholas Vasquez MDAdmit Phy: Ordering Phy: Hollis Sanchez M.D. cc: ~ SINGLE VIEW CHEST CLINICAL HISTORY: Atypical chest pain. FINDINGS: 2 AP, portable, upright chest radiographs are compared to chest x-ray and chest CT dated 01/28/2020. A 3-lead cardiac AICD is unchanged in position. The patient is status post midline sternotomy. The heart is mildly enlarged. The pulmonary vasculature is noncongested. Chronic interstitial thickening is similar to previous. No airspace consolidation or large pleural effusion is identified. No pneumothorax is seen. The bony thorax is grossly intact. IMPRESSION: 1. Cardiomegaly and AICD. There is no radiographic evidence of congestive failure. 2. There is no airspace consolidation or large pleural effusion. ACT 112: Negative or not required by law. Electronically signed by: Nicholas Vasquez M.D. 04/16/2020 11:58 PM Dictated: 04/16/202356Transcribed: 04/16/202356 Code Status & VTE Plan Code Status Full code VTE Prophylaxis Plan VTE Prophylaxis will be ordered: Yes PG Care Time/CCT Total # of Minutes Spent Total Time Spent with Patient: Total time spent is greater than 50% in coordination of care (as documented) at patient's floor/unit and/or counseling patient: Coding Level of Care Code 42300 Initial Inpt Care Lvl 3 Diagnoses Left-sided chest pain R07.9 Hypertrophic cardiomyopathy I42.2 S/P mitral valve repair Z98.890 S/P ventricular septal myectomy Z98.890 HTN (hypertension) I10 Chronic diastolic congestive heart failure I50.32 Elevated troponin R79.89 Hyperlipidemia E78.5 Type 2 diabetes mellitus E11.9 Sleep apnea G47.30
[2020-04-17] MEDS ORDERED: DEXTROSE 50% 50 ML SYRINGE IV PRN (02:46)
[2020-04-17] MEDS ORDERED: ONDANSETRON INJ 2 MG/ML 2 ML VIAL IV PRN (02:46)
[2020-04-17] MEDS ORDERED: GLUCOSE 10 TABS/TUBE PO PRN (02:46)
[2020-04-17] MEDS ORDERED: ACETAMINOPHEN 325 MG TAB PO PRN (02:46)
[2020-04-17] MEDS ORDERED: GLUCAGON FOR INJ 1 MG VIAL SQ PRN (02:46)
[2020-04-17] MEDS ORDERED: CARBOHYDRATES FOR HYPOGLYCEMIA PO PRN (02:46)
[2020-04-17] MEDS ORDERED: METHOCARBAMOL 500 MG TABLET PO PRN (02:46)
[2020-04-17] MEDS ORDERED: GLUCOSE 40% GEL 15 GM TUBE PO PRN (02:46)
[2020-04-17] MEDS ORDERED: HYDROCODONE/ACETAMOPHEN 5/325MG TAB PO PRN (02:57)
[2020-04-17] MEDS: INSULIN ASPART 100 UNITS/ML 3 ML PEN SC SCH ×2 (07:53→12:01)
[2020-04-17] MEDS ORDERED: ATORVASTATIN 10 MG TAB PO SCH (09:00)
[2020-04-17] MEDS ORDERED: dilTIAZem HCL 180 MG CAPCR PO SCH (09:00)
[2020-04-17] MEDS ORDERED: METOPROLOL SUCC 50MG EXT REL TAB PO SCH (09:00)
[2020-04-17] MEDS ORDERED: INSULIN GLARGINE SOLOSTAR 100 UNITS/ML 3 ML PEN SQ SCH (09:00)
[2020-04-17] MEDS ORDERED: ASPIRIN 81 MG ECTAB PO SCH (09:00)
[2020-04-17] MEDS ORDERED: NITROGLYCERIN SL 0.4 MG/TAB TAB ONE ×2 (09:10→09:11)
--- NOTE | 2020-04-17 10:17 | Cardiology Consultation ---
Date of Consultation April 17, 2020 Assessment & Plan (1) Left-sided chest pain: He presented with left-sided chest discomfort radiating to his jaw, it was brief and it is not associate with exertion (he does have dyspnea on exertion). He had normal coronary arteries 2 years ago and on prior studies. His troponin is elevated but only to the extent that it has been on multiple other presentations. I would not pursue further evaluation for coronary artery disease. (2) Elevated troponin: He has a chronically elevated troponin his current measurements are in line with what we have seen before. Probably related to his severe hypertrophic cardiomyopathy (3) Biventricular ICD (implantable cardioverter-defibrillator) in place: His ICD appears doing well on telemetry, if he remains in the hospital I will have it interrogated tomorrow while he is here, but there is no need to keep him here for that. (4) Dyspnea on exertion: He has been having dyspnea on exertion, this is probably due to diastolic dysfunction and his hypertrophic cardiomyopathy. His left ventricular function is not reduced by echocardiography and he is not in heart failure. History of Present Illness Reason for Consultation: Chest discomfort, elevated troponin Attending Physician: Lai Allen MD History of Present Illness This is a 49-year-old male with a history of hypertrophic cardiomyopathy with outflow tract obstruction. He had a septal myomectomy and mitral valve repair on January 02, 2016 at [facility]. A single-chamber ICD had been implanted at [facility] on April 18, 2007 for primary prevention sudden . That device reached [facility] prior to his septal myomectomy therefore he had a device replacement on December 22, 2015 using the original lead. With his myomectomy he developed complete heart block and had consistent ventricular pacing with his single- chamber ICD. He presented with congestive heart failure on January 17, 2016, with his complete heart block and wide paced rhythm we had considered upgrade to a biventricular device however he improved with diuresis and reprogramming and that was not done at the time. With continued symptoms he did have a dual-chamber ICD implanted on May 02, 2017 with placement of an atrial lead. By August 02, 2017 his ejection fraction had dropped somewhat to 40 to 45%, he did have catheterization August 05, 2017 where he had normal coronary arteries. There was no significant outflow tract gradient. With continued left ventricular dysfunction he did have his ICD upgraded to a biventricular device on August 06, 2017. By October 23, 2017 his left ventricular function had normalized. His left ventricle remained normal on June 29, 2018 and there was no significant outflow tract gradient. He was last seen in our office for his ICD evaluation on July 08, 2019, his device was working well at that time. He was complaining of dyspnea on exertion and does have chronic diastolic congestive heart failure with severe left ventricular hypertrophy. He presented to the emergency room on April 16, 2020 with complaints of left- sided chest discomfort radiating to his jaw. He was also concerned because his blood pressure was elevated (he was getting measurements around 160/100). In the emergency room he had a borderline elevated troponin, however he has a chronically elevated troponin and that measurement was in line with his prior measurements. However with the chest discomfort, hypertension and troponin he was admitted. He tells me that he feels better today, he has not had any further chest discomfort and his blood pressure has normalized. He feels well today. He has not been exerting himself here in the hospital, his dyspnea exertion has not changed recently. An electrocardiogram shows appropriate biventricular pacing, his troponin is slightly elevated but stable and in the same range as what is been observed on multiple prior measurements. Allergies Allergy/AdvReac Type Severity Reaction Status Date / Time erythromycin base Allergy Severe Anaphylaxis Verified 04/17/20 00:41 Home Medications Medication Instructions Recorded Confirmed Type aspirin 81 mg PO QAM 01/21/18 04/17/20 History atorvastatin 10 mg PO QAM 01/21/18 04/17/20 History methocarbamol 500 - 1,000 mg PO TID PRN 01/21/18 04/17/20 History potassium chloride 20 meq PO QAM PRN 01/21/18 04/17/20 History metformin 1,000 mg PO BID 06/28/18 04/17/20 History Lantus Solostar U-100 Insulin 40 unit SUBCUT QAM 12/19/18 04/17/20 History diltiazem HCl [Cartia XT] 180 mg PO QAM 12/19/18 04/17/20 History metoprolol succinate 100 mg 100 mg PO DAILY tab 12/25/18 04/17/20 History tablet,extended release 24 hr Januvia 100 mg PO QAM 02/11/19 04/17/20 History insulin aspart U-100 [Novolog 5 unit SUBCUT HS 07/31/19 04/17/20 History Flexpen U-100 Insulin] insulin aspart U-100 [Novolog 6 - 14 unit SUBCUT TID 07/31/19 04/17/20 History Flexpen U-100 Insulin] furosemide 80 mg PO BID17 PRN 08/13/19 04/17/20 History Lantus Solostar U-100 Insulin 5 units SUBCUT HS 01/29/20 04/17/20 History hydrocodone-acetaminophen 1 tab PO DAILY PRN 04/17/20 04/17/20 History meloxicam 15 mg PO HS 04/17/20 04/17/20 History Patient History Medical History Acute hyperglycemia Biventricular ICD (implantable cardioverter-defibrillator) in place (~08/2017) Single-chamber ICD 2006; Dual-chamber ICD 04/2017; Biventricular ICD 08/06/17 - [employer] Chronic back pain Chronic diastolic congestive heart failure CKD (chronic kidney disease) Closed fracture of cervical spine (Unknown) Depression NO MEDS History of cardiac arrest 12/2015 History of complete heart block HTN (hypertension) Hyperlipidemia Hypertrophic cardiomyopathy (Unknown) SEES DR. SAWYER Obesity Osteoarthritis Pulmonary nodules Sleep apnea CPAP Type 2 diabetes mellitus Valvular heart disease Mitral valve repair Surgical History History of appendectomy History of cardiac cath X 4 - [facility] - [facility] 2017 - PACER MALFUNCTION - NO STENTS/ANGIOPLASTY - FOLLOWS W/ DR. SAWYER History of esophagogastroduodenoscopy (EGD) History of mitral valve repair DONE AT [place] DEC 2015 Hx of surgical procedure SELF CONTAINED TUMOR REMOVED FROM SCROTUM S/P ventricular septal myectomy (~12/2015) Family History Mother Family history of reaction to anesthesia PONV Grandfather (Maternal) Family history of diabetes mellitus Grandmother (Maternal) Family history of diabetes mellitus Social History Smoking Status: Former smoker Tobacco Type: Smokeless Tobacco (Dip or Chew) Second Hand Exposure: Yes; Hx Alcohol Use: Yes Alcohol type: beer and hard liquor Hx Substance Use: Yes Last Used Substance: Unknown Last Used Substance Other:: 1 WEEK AGO Substance Use Type Other:: LAST USE 2 YRS AGO Preferred Language: Ethiopian Communication Ability: Effective 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 HEENT: Unremarkable Neck: No jugular venous distention, carotid pulses are normal and equal bilaterally without bruits. Pulmonary: Clear to auscultation bilaterally. Cardiac: Regular rhythm with no murmur, gallop or rub. Abdomen: Soft, nontender with normal bowel sounds. Extremities: No edema. Distal pulses intact. Neurologic: No focal findings. Gait is steady. Skin: The device site is well-healed without erythema, swelling or tenderness. No rash, ecchymoses or petechiae. Results & Data ([facility]) Vital Signs (Past 12 Hours) Vital Signs Temp Pulse Pulse Resp BP BP Pulse Ox 04/17/20 09:18 119/71 04/17/20 09:10 125/82 04/17/20 08:18 36.4 C L 67 20 129/86 96 04/17/20 08:00 60 04/17/20 02:50 36.5 C 65 19 126/72 95 04/17/20 02:25 60 17 120/84 95 04/17/20 01:30 60 16 131/74 94 04/17/20 00:02 68 18 136/81 93 04/16/20 23:37 37.4 C 78 18 156/89 H 94 Laboratory Results Cardiac Enzymes 04/16/20 04/17/20 Range/Units 22:55 05:27 AST 37 (15-37) U/L Troponin I 0.053 H* 0.064 H* (0-0.045) ng/ml Coagulation 04/16/20 Range/Units 22:55 PT 10.6 (9.0-12.0) Seconds APTT 28.3 (21.0-31.0) Seconds CBC 04/16/20 Range/Units 22:55 WBC 6.48 (4.8-10.8) K/uL RBC 5.11 (4.7-6.1) M/uL Hgb 15.2 (14.0-18.0) g/dL Hct 43.8 (42-52) % Plt Count 183 (130-400) K/uL Neut # (Auto) 4.03 (1.4-6.5) K/uL Lymph # (Auto) 1.64 (1.2-3.4) K/uL Sampson # (Auto) 0.61 H (0.11-0.59) K/uL Eos # (Auto) 0.15 (0-0.5) K/uL Baso # (Auto) 0.03 (0-0.2) K/uL Comprehensive Metabolic Panel 04/16/20 Range/Units 22:55 Sodium 140 (136-145) mmol/L Potassium 3.9 (3.5-5.1) mmol/L Chloride 107 (98-107) mmol/L Carbon Dioxide 28 (21-32) mmol/L BUN 21 H (7-18) mg/dl Creatinine 1.05 (0.6-1.4) mg/dl Glucose 183 H (70-99) mg/dl Calcium 9.4 (8.5-10.1) mg/dl Direct Bilirubin 0.2 (0-0.2) mg/dl AST 37 (15-37) U/L ALT 77 (12-78) U/L Alkaline Phosphatase 87 (45-117) U/L Total Protein 7.3 (6.4-8.2) gm/dl Albumin 3.7 (3.4-5.0) gm/dl Intake and Output 04/16/20 04/17/20 04/17/20 22:59 06:59 14:59 Other: Weight 159.2 kg Weight Measurement Method Built in [facility] Diagnostic Findings His presenting electrocardiogram shows sinus rhythm with atrial sensing and appropriate biventricular pacing Telemetry: Atrial sensing with ventricular pacing, heart rate appears appropriate PG Care Time/CCT Total # of Minutes Spent Total Time Spent with Patient: Total time spent is greater than 50% in coordination of care (as documented) at patient's floor/unit and/or counseling patient: Coding Level of Care Code 43540 Office/OBS Consult Lvl 4 Diagnoses Left-sided chest pain R07.9 Elevated troponin R79.89 Biventricular ICD (implantable cardioverter-defibrillator) in place Z95.810 Dyspnea on exertion R06.09
--- NOTE | 2020-04-17 12:22 | Discharge Summary ---
Date of Service April 17, 2020 Admission HPI Per Admitting Provider The patient is a 49-year-old male with a past medical history including obesity, pulmonary nodules, right-sided chest pain, elevated troponin, status post ventricular septal myectomy, status post mitral valve repair, hypertrophic cardiomyopathy, biventricular ICD in place, CKD, hypertension, hyperlipidemia, chronic diastolic CHF, diabetes mellitus type 2, MEENU, chronic back pain, chronic dyspnea on exertion and palpitations. He was most recently admitted to [facility] from 01/27-01/28 for right-sided chest pain, which after appropriate work- up was thought to be more related to noncardiac issues. Work-up in the emergency department tonight included the following abnormal labs: Glucose 183, troponin 0 0.053. Troponin is typically chronically elevated with range 0.053-0.170 going back to 08/02/2017 Patient was COVID-19 negative. Peak temperature was 99.3 F, and pulse ox was as low as 93% on room air. Chest x-ray showed presence of AICD and chronic congestion/body habitus artifact. EKG showed no acute findings Principal Diagnosis Non-cardiac chest pain & jaw pain Discharge Exam Constitutional WD/WN, vitals as above Eyes EOM intact bilaterally; no conjunctival abnormality ENMT external ear and nose normal, oropharynx normal Mouth / Teeth: 1. Exposed tooth root Neck trachea midline, no thyromegaly normal visual inspection Respiratory normal respiratory effort, lungs clear to auscultation no respiratory distress Cardiovascular RRR, no murmur, no edema Gastrointestinal (Abdomen) Inspection/Auscultation: abdomen normal to inspection; abdomen not distended Musculoskeletal no cyanosis or clubbing, extremities motor strength 5/5 Skin no rashes, warm and dry Neurologic moves all extremities and awake Psychiatric Orientation: alert, oriented to person and cooperative Discharge Data Allergies Allergy/AdvReac Type Severity Reaction Status Date / Time erythromycin base Allergy Severe Anaphylaxis Verified 04/17/20 00:41 Consultations 04/17/20 00:41 ED Decision to Admit Stat 04/17/20 02:46 Consult Cardiology Routine Consult Case Management - Discharge Planning Routine Hospital Course (1) Left-sided chest pain: Serial cardiac enzymes were negative. Seen by cardiology with no concern for ACS. - For right-sided jaw pain, he did have an exposed tooth root on the right upper side. No purulence noted and no tenderness to indicate abscess. - Encourage to follow up with a dentist and to stop chewing tobacco. (2) Hypertrophic cardiomyopathy: (3) S/P mitral valve repair: (4) S/P ventricular septal myectomy: (5) HTN (hypertension): (6) Chronic diastolic congestive heart failure: (7) Elevated troponin: (8) Hyperlipidemia: Continue atorvastatin 10 mg daily (9) Type 2 diabetes mellitus: Continue Lantus insulin 40 units subcu every morning and 5 units subcu at bedtime. Hold Januvia and Metformin NovoLog coverage per scale placed on Accu-Cheks before meals and at bedtime with (10) Sleep apnea: CPAP at bedtime as needed Total Time Total Time Spent Total Time Spent (In Minutes): 35 Discharge Plan Discharge Items Patient Disposition: Home - Self-Care Reason For Visit: PRECORDIAL CHEST PAIN Discharge Diagnosis: Chest pressure; jaw pain Activity: Resume your previous activity Non-emergency contact: Primary Care Provider Call non-emergency contact if: your symptoms worsen Follow-up/Referrals: Alfred Davis [Primary Care Provider] - Diet: Heart Healthy and Low Sodium (2gm) Addtl Attending Provider Instructions: You were admitted for chest pressure and jaw pain. Luckily, your troponins were all stable, so that tell us no stress or damage was done to the heart. Please see a dentist if the jaw pain continues. There is an exposed root on the top-right side, and I do wonder if this was causing some discomfort. Stopping chewing tobacco may also help, but I understand this is difficult. Pending Studies at Discharge: No Stand-Alone Forms: [facility], Smoking Cessation Medications and DC Order Prescriptions: Continued hydrocodone-acetaminophen 5-325 mg tablet 1 tab PO DAILY PRN (Reason: Pain) RF: 0 meloxicam 15 mg tablet 15 mg PO HS RF: 0 methocarbamol 500 mg tablet 500 - 1,000 mg PO TID PRN (Reason: Muscle Spasm) RF: 0 atorvastatin 10 mg tablet 10 mg PO QAM RF: 0 aspirin 81 mg Tablet,Delayed Release (Dr/Ec) 81 mg PO QAM RF: 0 potassium chloride 20 mEq Tablet Extended Release 20 meq PO QAM PRN (Reason: when taking lasix) RF: 0 metoprolol succinate 100 mg tablet extended release 24 hr 100 mg PO DAILY RF: 0 metformin 1,000 mg tablet 1,000 mg PO BID RF: 0 diltiazem HCl [Cartia XT] 180 mg capsule,extended release 24hr 180 mg PO QAM RF: 0 Lantus Solostar U-100 Insulin 100 unit/mL (3 mL) insulin pen 40 unit subcut QAM RF: 0 Januvia 100 mg tablet 100 mg PO QAM RF: 0 insulin aspart U-100 [Novolog Flexpen U-100 Insulin] 100 unit/mL (3 mL) insulin pen 6 - 14 unit SUBCUT TID RF: 0 insulin aspart U-100 [Novolog Flexpen U-100 Insulin] 100 unit/mL (3 mL) insulin pen 5 unit SUBCUT HS RF: 0 furosemide 80 mg tablet 80 mg PO BID17 PRN (Reason: Fluid Retention) RF: 0 Lantus Solostar U-100 Insulin 100 unit/mL (3 mL) Insulin Pen 5 units subcut HS RF: 0 Discharge Orders: Discharge Order (Routine); Ordered 04/17/20 Ordered By: Lai Allen Admission Data Admit Date/Time: 04/17/20 01:59 Attending Provider: Lai Allen Admit Provider: Andrea Davis Primary Care Provider: Alfred Davis Other Providers: Isaías Hogan ; Lai Allen Coding Level of Care Code 70516 OBS Care - Discharge Diagnoses Left-sided chest pain R07.9 Hypertrophic cardiomyopathy I42.2 S/P mitral valve repair Z98.890 S/P ventricular septal myectomy Z98.890 HTN (hypertension) I10 Chronic diastolic congestive heart failure I50.32 Elevated troponin R79.89 Hyperlipidemia E78.5 Type 2 diabetes mellitus E11.9 Sleep apnea G47.30
--- NOTE | 2020-04-17 12:26 | XCELERA ---
[id number]
[2020-04-17] MEDS ORDERED: MELOXICAM 7.5 MG TAB PO SCH (21:00)
[2020-04-18 06:30] LABS: Estimated Average Glucose 226 mg/dl; Hemoglobin A1C 9.5 % (4.5-5.6)
--- NOTE | 2020-04-18 06:39 | Electrocardiogram Report ---
Test Reason : Blood Pressure : / mmHG Vent. Rate : 076 BPM Atrial Rate : 076 BPM P-R Int : 180 ms QRS Dur : 180 ms QT Int : 470 ms P-R-T Axes : 024 -83 094 degrees QTc Int : 528 ms AV dual-paced rhythm Abnormal ECG When compared with ECG of 28-JAN-2020 12:46, Vent. rate has increased BY 8 BPM Confirmed by Stephen Medrano [id number]) on 04/18/2020 6:38:41 AM Referred By: REFERRED SELF Confirmed By:Stephen Medrano
== END 2020-04-17 14:27 | disposition home or self-care (01) ==
LOC: ED 23:30 → INTOOBSV 04-17 01:59 → SUATTDRO 04-17 01:59 → 2S 04-17 01:59

== ENCOUNTER 2020-08-03 18:16 | Inpatient (IN) ==
--- NOTE | 2020-08-03 19:03 | Emergency Department Note ---
Impression & Plan COVID-19, Cough ED Provider Note NAME: JULISSA MARIN AGE: 49 SEX: M : 1970 ARRIVES VIA: Walk-In INFORMANT: Patient, ED PROVIDER(S): Candelario Robles MD Chief Complaint: Chest pain, cough, body aches HPI: Patient does present with the above symptoms that began early yesterday morning around 2 AM. The patient states that he does have pain primarily with coughing and has coughed up a small amount of pink-colored sputum. The patient no longer smokes tobacco but does use smokeless tobacco. The patient states he has noted fevers over the last 2 days with a temp of approximately 102 Fahrenheit max. Patient has tried taking zkup-osd-dorswyu medications. The patient denies any prior history of DVT or PE. He has been compliant with his medications and has had slight nausea and associated headache with the body aches but denies any vomiting. Patient denies any lower extremity swelling. The patient does follow with Dr. Hogan with cardiology. The patient did not get vaccinated for coronavirus. Patient's headache is global and nonradiating. Patient denies any numbness tingling or weakness. ROS: See HPI for pertinent positives and negatives. A total of 10 systems were reviewed and otherwise negative. Past medical history: See below Surgical history: See below Social history: See below Physical Exam: GENERAL: Wearing glasses, hat and a mask. NAD, non-toxic. EYE EXAM: Normal conjunctiva. PERRL, no anisocoria and EOM's grossly intact w/o pain. NECK: Supple, no nuchal rigidity, no adenopathy, non-tender. No signs of meningismus. Chest: Device in left chest. LUNGS: Clear to auscultation. Normal chest wall mechanics. HEART: NSR, no MRG. ABDOMEN: Abdomen soft, non-tender, normo-active bowel sounds, no masses, no rebound or guarding. BACK: No CVA TTP. SKIN: No rashes and no bruising. UPPER EXTREMITIES: Upper extremities are grossly normal. LOWER EXTREMITIES: Grossly normal, no edema. Negative Homans' sign bilaterally. NEURO EXAM: A&O x3, cranial nerves II-XII grossly intact, normal speech, moves all 4 extremities on command w/o issue. Differential diagnoses: Cardiac ischemia, aortic dissection, pulmonary embolism, pneumothorax, pneumonia, pericarditis, myocarditis, esophageal rupture, GERD, cholecystitis, pancreatitis, musculoskeletal, as well as other pathologies. Course: Patient was seen and evaluated the bedside. Full history physical exam was performed. EKG: Indication: Chest pain A sensed V paced rhythm with a ventricular rate of 73 with a wide QRS, T wave version anteriorly with Q waves throughout. Grossly unchanged morphology from comparison EKG April 16, 2020. Imaging Studies: Radiology results as stated below per my review in the radiologist's interpretation: XR chest 1V portable HISTORY: 49 years-old Male SEPSIS acute sepsis COMPARISON: Chest radiograph 04/16/2020, chest CT 01/28/2020 TECHNIQUE: Portable AP view of the chest FINDINGS: Cardiomegaly with prior median sternotomy. Left subclavian pacer/AICD. Minimal retrocardiac opacities suggestive of atelectasis. No pneumothorax, pleural effusion, airspace consolidation or overt pulmonary edema. Bones of the chest appear grossly intact. IMPRESSION: Cardiomegaly without acute process. ACT 112: Negative or not required by law. The above report was generated using voice recognition software. It may contain grammatical, syntax or spelling errors. Electronically signed by: Tom Soriano M.D. 08/03/2020 7:55 PM Dictated: 08/03/201952 Transcribed: 08/03/201952 Cardiac monitoring: An order was placed for continuous cardiac monitoring. The monitor shows a rate of 67 with paced rhythm. MDM: Patient was seen due to concern for upper respiratory type symptoms cough body aches headache with chest pain associated with the coughing. Blood work was obt ained along with an EKG. The patient does have mild temperature. EKG unchanged from prior. Chest x-ray cardiomegaly without obvious consolidation. Patient has leukopenia with a normal H&H and platelet count. The patient's kidney function is unremarkable. Elevated blood glucose but normal bicarb and anion gap. Magnesium is low. Mild elevations in AST's bilirubin is normal with no right upper quadrant pain. Troponin is elevated but this does appear to be chronic in nature. No EKG changes. Procalcitonin is not elevated. Initial lactate of 2.6 repeat 1.5. Covid positive. I did speak to the on-call hospitalist given the patient's medical comorbidities and associated COVID-19 positive illness. Patient was admitted to the [facility] physician group by Dr. Carrillo. Past Med/Surg History Medical History Acute hyperglycemia Biventricular ICD (implantable cardioverter-defibrillator) in place (~08/2017) Single-chamber ICD 2006; Dual-chamber ICD 04/2017; Biventricular ICD 08/06/17 - [employer] Chronic back pain Chronic diastolic congestive heart failure CKD (chronic kidney disease) Closed fracture of cervical spine (Unknown) Depression NO MEDS History of cardiac arrest 12/2015 History of complete heart block HTN (hypertension) Hyperlipidemia Hypertrophic cardiomyopathy (Unknown) SEES DR. SAWYER Obesity Osteoarthritis Pulmonary nodules Sleep apnea CPAP Type 2 diabetes mellitus Valvular heart disease Mitral valve repair Surgical History History of appendectomy History of cardiac cath X - [facility] 2017 - PACER MALFUNCTION - NO STENTS/ANGIOPLASTY - FOLLOWS W/ DR. SAWYER History of esophagogastroduodenoscopy (EGD) History of mitral valve repair DONE AT [facility] DEC 2015 Hx of surgical procedure SELF CONTAINED TUMOR REMOVED FROM SCROTUM S/P ventricular septal myectomy (~12/2015) Family History Mother Family history of reaction to anesthesia PONV Grandfather (Maternal) Family history of diabetes mellitus Grandmother (Maternal) Family history of diabetes mellitus Social History Smoking Status: Former smoker Tobacco Type: Cigarettes Second Hand Exposure: Yes; Hx Alcohol Use: Yes Alcohol type: beer and hard liquor Hx Substance Use: Yes Last Used Substance: Unknown Last Used Substance Other:: 1 WEEK AGO Substance Use Type Other:: LAST USE 2 YRS AGO Preferred Language: Yakut Communication Ability: Effective 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: No Beliefs That Will Affect Care: None Current Living Situation: Family Current Living Situation Comment: LIVES WITH MOTHER Feels Safe at Home: Yes Assistive Devices: None Allergies Allergies Allergy/AdvReac Type Severity Reaction Status Date / Time erythromycin base Allergy Severe Anaphylaxis Verified 08/03/20 19:26 Home Meds Home Medications Medication Instructions Recorded Confirmed aspirin 81 mg PO QAM 01/21/18 08/03/20 atorvastatin 10 mg PO QAM 01/21/18 08/03/20 potassium chloride 20 meq PO QAM PRN 01/21/18 08/03/20 metformin 1,000 mg PO BID 06/28/18 08/03/20 Lantus Solostar U-100 Insulin 40 unit SUBCUT QAM 12/19/18 08/03/20 diltiazem HCl [Cartia XT] 180 mg PO QAM 12/19/18 08/03/20 metoprolol succinate 100 mg 100 mg PO DAILY tab 12/25/18 08/03/20 tablet,extended release 24 hr Januvia 100 mg PO QAM 02/11/19 08/03/20 insulin aspart U-100 [Novolog 5 unit SUBCUT HS 07/31/19 08/03/20 Flexpen U-100 Insulin] insulin aspart U-100 [Novolog 6 - 14 unit SUBCUT TID 07/31/19 08/03/20 Flexpen U-100 Insulin] furosemide 80 mg PO BID17 PRN 08/13/19 08/03/20 Lantus Solostar U-100 Insulin 5 units SUBCUT HS 01/29/20 08/03/20 hydrocodone-acetaminophen 1 tab PO DAILY PRN 04/17/20 08/03/20 gabapentin 300 mg PO HS 08/03/20 08/03/20 lidocaine 1 patch TOPICAL DAILY 08/03/20 08/03/20 Results & Data (ED) Vital Signs Vital Signs - 24 hr 08/03/20 18:46 08/03/20 19:31 08/03/20 20:00 Temperature 37.9 C H Temperature Source Temporal Artery Scan Pulse Rate 75 75 72 Pulse Rate from SpO2 Sensor 76 71 Respiratory Rate 18 16 24 Respiratory Effort / Characteristics Non-Labored Spontaneous Respiratory Depth Normal Respiratory Pattern Regular Blood Pressure 122/73 114/74 120/64 Blood Pressure Mean 89 87 82 Blood Pressure Position Sitting Pulse Oximetry 96 94 96 Oxygen Delivery Method Room Air Room Air Room Air Sepsis Recent Fever Within 48 Hours No Sepsis New/Unexplained Change in Mental Status N/A Sepsis Action Taken by Nursing No Action Required 08/03/20 20:30 08/03/20 20:52 08/03/20 21:00 Temperature 37.9 C H Temperature Source Oral Pulse Rate 68 67 Pulse Rate from SpO2 Sensor 69 68 Respiratory Rate 20 20 Respiratory Effort / Characteristics Respiratory Depth Respiratory Pattern Blood Pressure 110/64 111/55 L Blood Pressure Mean 79 73 Blood Pressure Position Pulse Oximetry 94 94 Oxygen Delivery Method Room Air Room Air Sepsis Recent Fever Within 48 Hours Sepsis New/Unexplained Change in Mental Status Sepsis Action Taken by Nursing 08/03/20 21:31 08/03/20 22:31 08/03/20 23:00 Temperature Temperature Source Pulse Rate 68 67 67 Pulse Rate from SpO2 Sensor 68 66 67 Respiratory Rate 18 15 15 Respiratory Effort / Characteristics Respiratory Depth Respiratory Pattern Blood Pressure 108/58 L 143/81 H 126/80 Blood Pressure Mean 74 101 95 Blood Pressure Position Pulse Oximetry 94 93 94 Oxygen Delivery Method Room Air Room Air Room Air Sepsis Recent Fever Within 48 Hours Sepsis New/Unexplained Change in Mental Status Sepsis Action Taken by [facility] Medications Current Medication List: was personally reviewed by me Laboratory Data Attestation: I reviewed the patient's lab results. Result diagrams: 08/03/20 19:43 08/03/20 19:43 Lab Results 08/03/20 08/03/20 08/03/20 Range/Units 19:31 19:31 19:32 WBC (4.8-10.8) K/uL RBC (4.7-6.1) M/uL Hgb (14.0-18.0) g/dL Hct (42-52) % MCV (80-100) fL MCH (25-34) pg MCHC (32-36) g/dL RDW Std Deviation (36.4-46.3) fL RDW Coeff of Valeria (11.5-14.5) % Plt Count (130-400) K/uL MPV (7.4-10.4) fL Immature Gran % (Auto) % Neut % (Auto) % Lymph % (Auto) % Finney % (Auto) % Eos % (Auto) % Baso % (Auto) % Neut # (Auto) (1.4-6.5) K/uL Lymph # (Auto) (1.2-3.4) K/uL Finney # (Auto) (0.11-0.59) K/uL Eos # (Auto) (0-0.5) K/uL Baso # (Auto) (0-0.2) K/uL Immature Gran # (Auto) (0.00-0.02) K/uL PT (9.0-12.0) Seconds INR (0.9-1.1) APTT (21.0-31.0) Seconds PTT Ratio Sodium (136-145) mmol/L Potassium (3.5-5.1) mmol/L Chloride (98-107) mmol/L Carbon Dioxide (21-32) mmol/L Anion Gap (3-11) BUN (7-18) mg/dl Creatinine (0.6-1.4) mg/dl Est Cr Clr Drug Dosing ml/min Est GFR ( Amer) Est GFR (Non-Af Amer) BUN/Creatinine Ratio (10-20) Glucose (70-99) mg/dl Lactate (0.4-2.0) mmol/L Calcium (8.5-10.1) mg/dl Magnesium (1.8-2.4) mg/dl Total Bilirubin (0.2-1) mg/dl AST (15-37) U/L ALT (12-78) U/L Alkaline Phosphatase (45-117) U/L Troponin I (0-0.045) ng/ml Total Protein (6.4-8.2) gm/dl Albumin (3.4-5.0) gm/dl Globulin (2.5-4.0) gm/dl Albumin/Globulin Ratio (0.9-2) Procalcitonin (0-0.5) ng/ml Nasal Screen MRSA (PCR) Negative (Negative) COVID-19 Eval Order CovFluRsv at [facility] SARS-CoV-2 (PCR) POSITIVE A* (Negative) Influenza Type A (PCR) Negative (Neg) Influenza Type B (PCR) Negative (Neg) RSV (RT-PCR) Negative (Neg) 08/03/20 08/03/20 08/03/20 Range/Units 19:43 19:43 19:43 WBC 4.00 L (4.8-10.8) K/uL RBC 5.12 (4.7-6.1) M/uL Hgb 15.5 (14.0-18.0) g/dL Hct 43.1 (42-52) % MCV 84.2 (80-100) fL MCH 30.3 (25-34) pg MCHC 36.0 (32-36) g/dL RDW Std Deviation 42.2 (36.4-46.3) fL RDW Coeff of Valeria 13.6 (11.5-14.5) % Plt Count 180 (130-400) K/uL MPV 11.7 H (7.4-10.4) fL Immature Gran % (Auto) 0.5 % Neut % (Auto) 54.6 % Lymph % (Auto) 30.3 % Finney % (Auto) 13.8 % Eos % (Auto) 0.5 % Baso % (Auto) 0.3 % Neut # (Auto) 2.19 (1.4-6.5) K/uL Lymph # (Auto) 1.21 (1.2-3.4) K/uL Finney # (Auto) 0.55 (0.11-0.59) K/uL Eos # (Auto) 0.02 (0-0.5) K/uL Baso # (Auto) 0.01 (0-0.2) K/uL Immature Gran # (Auto) 0.02 (0.00-0.02) K/uL PT 10.8 (9.0-12.0) Seconds INR 1.1 (0.9-1.1) APTT 29.7 (21.0-31.0) Seconds PTT Ratio 1.1 Sodium 135 L (136-145) mmol/L Potassium 3.7 (3.5-5.1) mmol/L Chloride 100 (98-107) mmol/L Carbon Dioxide 31 (21-32) mmol/L Anion Gap 4.0 (3-11) BUN 17 (7-18) mg/dl Creatinine 1.32 (0.6-1.4) mg/dl Est Cr Clr Drug Dosing 110.4 ml/min Est GFR ( Amer) 73.4 Est GFR (Non-Af Amer) 63.3 BUN/Creatinine Ratio 13.2 (10-20) Glucose 260 H (70-99) mg/dl Lactate (0.4-2.0) mmol/L Calcium 8.9 (8.5-10.1) mg/dl Magnesium 1.7 L (1.8-2.4) mg/dl Total Bilirubin 0.5 (0.2-1) mg/dl AST 84 H (15-37) U/L ALT 97 H (12-78) U/L Alkaline Phosphatase 76 (45-117) U/L Troponin I 0.108 H* (0-0.045) ng/ml Total Protein 7.3 (6.4-8.2) gm/dl Albumin 3.8 (3.4-5.0) gm/dl Globulin 3.5 (2.5-4.0) gm/dl Albumin/Globulin Ratio 1.1 (0.9-2) Procalcitonin (0-0.5) ng/ml Nasal Screen MRSA (PCR) (Negative) COVID-19 Eval Order SARS-CoV-2 (PCR) (Negative) Influenza Type A (PCR) (Neg) Influenza Type B (PCR) (Neg) RSV (RT-PCR) (Neg) 08/03/20 08/03/20 08/03/20 Range/Units 19:43 19:43 21:47 WBC (4.8-10.8) K/uL RBC (4.7-6.1) M/uL Hgb (14.0-18.0) g/dL Hct (42-52) % MCV (80-100) fL MCH (25-34) pg MCHC (32-36) g/dL RDW Std Deviation (36.4-46.3) fL RDW Coeff of Valeria (11.5-14.5) % Plt Count (130-400) K/uL MPV (7.4-10.4) fL Immature Gran % (Auto) % Neut % (Auto) % Lymph % (Auto) % Finney % (Auto) % Eos % (Auto) % Baso % (Auto) % Neut # (Auto) (1.4-6.5) K/uL Lymph # (Auto) (1.2-3.4) K/uL Finney # (Auto) (0.11-0.59) K/uL Eos # (Auto) (0-0.5) K/uL Baso # (Auto) (0-0.2) K/uL Immature Gran # (Auto) (0.00-0.02) K/uL PT (9.0-12.0) Seconds INR (0.9-1.1) APTT (21.0-31.0) Seconds PTT Ratio Sodium (136-145) mmol/L Potassium (3.5-5.1) mmol/L Chloride (98-107) mmol/L Carbon Dioxide (21-32) mmol/L Anion Gap (3-11) BUN (7-18) mg/dl Creatinine (0.6-1.4) mg/dl Est Cr Clr Drug Dosing ml/min Est GFR ( Amer) Est GFR (Non-Af Amer) BUN/Creatinine Ratio (10-20) Glucose (70-99) mg/dl Lactate 2.6 H* 1.5 (0.4-2.0) mmol/L Calcium (8.5-10.1) mg/dl Magnesium (1.8-2.4) mg/dl Total Bilirubin (0.2-1) mg/dl AST (15-37) U/L ALT (12-78) U/L Alkaline Phosphatase (45-117) U/L Troponin I (0-0.045) ng/ml Total Protein (6.4-8.2) gm/dl Albumin (3.4-5.0) gm/dl Globulin (2.5-4.0) gm/dl Albumin/Globulin Ratio (0.9-2) Procalcitonin 0.11 (0-0.5) ng/ml Nasal Screen MRSA (PCR) (Negative) COVID-19 Eval Order SARS-CoV-2 (PCR) (Negative) Influenza Type A (PCR) (Neg) Influenza Type B (PCR) (Neg) RSV (RT-PCR) (Neg) Administered Medications Discontinued Medications Acetaminophen (Acetaminophen 325 Mg Tab) 650 mg PO NOW STA Stop: 08/03/20 19:16 Last Admin: 08/03/20 19:35 Dose: 650 mg Documented by: [id number] Benzonatate (Benzonatate 100 Mg Capsule) 100 mg PO NOW ONE Stop: 08/03/20 21:06 Last Admin: 08/03/20 21:16 Dose: 100 mg Documented by: [id number] Sodium Chloride (Nss 1000ml) 1,000 mls @ 999 mls/hr IV .Q1H1M SHAKIRA Stop: 08/03/20 20:15 Last Infusion: 08/03/20 20:46 Dose: 0 mls/hr Documented by: [id number] Admin: 08/03/20 19:36 Dose: 999 mls/hr Documented by: [id number] Magnesium Sulfate/Dextrose (Magnesium Sulfate / D5w) 1 gm in 100 mls @ 100 mls/hr IV NOW STA Stop: 08/03/20 22:05 Last Infusion: 08/03/20 22:23 Dose: 0 mls/hr Documented by: [id number] Admin: 08/03/20 21:16 Dose: 100 mls/hr Documented by: [id number] Ketorolac Tromethamine (Ketorolac Tromethamine 15 Mg/Ml Vial) 15 mg IV NOW ONE Stop: 08/03/20 22:43 Last Admin: 08/03/20 22:50 Dose: 15 mg Documented by: [id number] Imaging Data Radiologist's Impression: Chest X-Ray 08/03/20 19:15 XR chest 1V portable HISTORY: 49 years-old Male SEPSIS acute sepsis COMPARISON: Chest radiograph 04/16/2020, chest CT 01/28/2020 TECHNIQUE: Portable AP view of the chest FINDINGS: Cardiomegaly with prior median sternotomy. Left subclavian pacer/AICD. Minimal retrocardiac opacities suggestive of atelectasis. No pneumothorax, pleural effusion, airspace consolidation or overt pulmonary edema. Bones of the chest appear grossly intact. IMPRESSION: Cardiomegaly without acute process. ACT 112: Negative or not required by law. The above report was generated using voice recognition software. It may contain grammatical, syntax or spelling errors. Electronically signed by: Tom Soriano M.D. 08/03/2020 7:55 PM Discharge Plan Visit Data Chief Complaint: Illness Stated Complaint: POSSIBLE PE, DIZZY, COUGH, FEVER ED Provider: Candelario Robles Discharge Problem: COVID-19, Cough Forms Stand Alone Forms: My [facility] Prescriptions Prescriptions: No Action hydrocodone-acetaminophen 5-325 mg tablet 1 tab PO DAILY PRN (Reason: Pain) RF: 0 atorvastatin 10 mg tablet 10 mg PO QAM RF: 0 aspirin 81 mg Tablet,Delayed Release (Dr/Ec) 81 mg PO QAM RF: 0 potassium chloride 20 mEq Tablet Extended Release 20 meq PO QAM PRN (Reason: when taking lasix) RF: 0 metoprolol succinate 100 mg tablet extended release 24 hr 100 mg PO DAILY RF: 0 metformin 1,000 mg tablet 1,000 mg PO BID RF: 0 diltiazem HCl [Cartia XT] 180 mg capsule,extended release 24hr 180 mg PO QAM RF: 0 Lantus Solostar U-100 Insulin 100 unit/mL (3 mL) insulin pen 40 unit subcut QAM RF: 0 Januvia 100 mg tablet 100 mg PO QAM RF: 0 insulin aspart U-100 [Novolog Flexpen U-100 Insulin] 100 unit/mL (3 mL) insulin pen 6 - 14 unit SUBCUT TID RF: 0 insulin aspart U-100 [Novolog Flexpen U-100 Insulin] 100 unit/mL (3 mL) insulin pen 5 unit SUBCUT HS RF: 0 furosemide 80 mg tablet 80 mg PO BID17 PRN (Reason: Fluid Retention) RF: 0 Lantus Solostar U-100 Insulin 100 unit/mL (3 mL) Insulin Pen 5 units subcut HS RF: 0 lidocaine 5 % adhesive patch,medicated 1 patch topical DAILY RF: 0 gabapentin 300 mg capsule 300 mg PO HS RF: 0
[2020-08-03] MEDS ORDERED: ACETAMINOPHEN 325 MG TAB PO STA (19:15)
[2020-08-03] MEDS ORDERED: SODIUM CHLORIDE 0.9% 1000ML 1,000 ML IV SCH (19:15)
[2020-08-03 19:56] LABS: Basophils # (auto) 0.01 K/uL (0-0.2); Basophils % (auto) 0.3 %; Eosinophils # (auto) 0.02 K/uL (0-0.5); Eosinophils % (auto) 0.5 %; Hematocrit (blood only) 43.1 % (42-52); Hemoglobin 15.5 g/dL (14.0-18.0); Immature Granulocytes # (auto) 0.02 K/uL (0.00-0.02); Immature Granulocytes % (auto) 0.5 %; Lymphocytes # (auto) 1.21 K/uL (1.2-3.4); Lymphocytes % (auto) 30.3 %; Mean Corpuscular Hemoglobin 30.3 pg (25-34); Mean Corpuscular Volume 84.2 fL (80-100); Mean Platelet Volume 11.7 fL (7.4-10.4); Monocytes # (auto) 0.55 K/uL (0.11-0.59); Monocytes % (auto) 13.8 %; Neutrophils # (auto) 2.19 K/uL (1.4-6.5); Neutrophils % (auto) 54.6 %; Platelet Count 180 K/uL (130-400); RDW Coefficient of Variation 13.6 % (11.5-14.5); RDW Standard Deviation 42.2 fL (36.4-46.3); Red Blood Count 5.12 M/uL (4.7-6.1)
--- NOTE | 2020-08-03 19:56 | XRay Report ---
XR chest 1V portable HISTORY: 49 years-old Male SEPSIS acute sepsis COMPARISON: Chest radiograph 04/16/2020, chest CT 01/28/2020 TECHNIQUE: Portable AP view of the chest FINDINGS: Cardiomegaly with prior median sternotomy. Left subclavian pacer/AICD. Minimal retrocardiac opacities suggestive of atelectasis. No pneumothorax, pleural effusion, airspace consolidation or overt pulmon jessica edema. Bones of the chest appear grossly intact. IMPRESSION: Cardiomegaly without acute process. ACT 112: Negative or not required by law. The above report was generated using voice recognition software. It may contain grammatical, syntax o r spelling errors. Electronically signed by: Tom Soriano M.D. 08/03/2020 7:55 PM
[2020-08-03 20:11] LABS: INR 1.1 (0.9-1.1); Partial Thromboplastin Ratio 1.1; Partial Thromboplastin Time 29.7 Seconds (21.0-31.0); Prothrombin Time 10.8 Seconds (9.0-12.0)
[2020-08-03 20:12] LABS: Albumin Level 3.8 gm/dl (3.4-5.0); BUN Creatinine Ratio 13.2 (10-20); Calcium 8.9 mg/dl (8.5-10.1); Creatinine Clr Calc Pharmacy 110.4 ml/min; Est GFR (African American) 73.4; Est GFR (Non-African American) 63.3; Magnesium 1.7 mg/dl (1.8-2.4); Potassium 3.7 mmol/L (3.5-5.1)
[2020-08-03 20:28] LABS: Albumin Globulin Ratio 1.1 (0.9-2); Bilirubin,Total 0.5 mg/dl (0.2-1); Globulin 3.5 gm/dl (2.5-4.0); Total Protein 7.3 gm/dl (6.4-8.2); Troponin I 0.108 ng/ml (0-0.045)
[2020-08-03 20:31] LABS: Influenza A virus by PCR Negative (Neg); Influenza B virus by PCR Negative (Neg); RSV by PCR Negative (Neg)
[2020-08-03 20:44] LABS: SARS CoV2 RNA(COVID-19) InHosp POSITIVE (Negative)
[2020-08-03] MEDS ORDERED: BENZONATATE 100 MG CAPSULE PO ONE (21:05)
[2020-08-03] MEDS ORDERED: MAGNESIUM SULFATE / D5W 1 GM/100 ML BAG IV STA (21:06)
[2020-08-03] MEDS ORDERED: KETOROLAC TROMETHAMINE 15 MG/ML VIAL IV ONE (22:42)
--- NOTE | 2020-08-03 22:54 | History & Physical Report ---
Date of Service August 03, 2020 Assessment & Plan (1) COVID-19: 49yo male presenting with Covid-19. Day 2 of illness. Symptoms include fever, body aches, diarrhea as well as cough and mild SOB. Labs significant for leukopenia with lymphopenia. Yq=225, mildly elevated AST and ALT at 84 and 97, respectively. His vital signs are stable and he has been >94% on room air. No supplemental oxygen required. -Observation to medical with telemetry -Maintain isolation precautions - contact and airborne -Check BNP -Continuous pulse oximetry monitoring. Patient does not meet requirements for steroids or Remdesivir at this time -Tylenol, Guaifenesin PRN -Albuterol PRN -Will use Lovenox 80mg BID for DVT prophylaxis as patient with Covid-19, BMI=43 -Repeat LFTs in AM Present on Admission?: Yes (2) Elevated troponin: Patietn with chronically elevated troponin. Troponin today = 0.108 which is slightly higher than previous values. He has some chest pain with coughing otherwise denies CP or palpitations. He does not feel that he is volume overloaded. -Telemetry monitoring -Repeat troponin in AM Present on Admission?: Yes (3) CKD (chronic kidney disease): BUN and Cr are near baseline values -Continue to monitor -Avoid nephrotoxins Present on Admission?: Yes (4) HTN (hypertension): Blood pressure stable -Continue Diltiazem -Continue Metoprolol -Continue to monitor Present on Admission?: Yes (5) Hyperlipidemia: Chronic. Stable -Continue Atorvastatin 10mg po qAM Present on Admission?: Yes (6) Chronic diastolic congestive heart failure: Patient appears to be well compensated overall. He has not taken Lasix at home recently -Check BNP -Monitor daily weights -Monitor I/Os -Will give one dose of Lasix 80mg IV -Continue Metoprolol Present on Admission?: Yes (7) Type 2 diabetes mellitus: Elevated blood sugar today. Patient typically on Januvia, Metformin as well as Lantus and Novolog -Hold oral agents for now -Continue lantus 5u qHS and 40u qAM -ISS -Goal blood sugar 100 - 140 -Continue Gabapentin 300mg po qHS for neuropathy -Check HgbA1C with AM labs Present on Admission?: Yes (8) Sleep apnea: Chronic -CPAP qHS Present on Admission?: Yes (9) Hypertrophic cardiomyopathy: Chronic. Stable. Patient is s/p myomectomy. Has AICD in place. He denies any discharges from device -Continue Metoprolol -Optimize electrolytes F/E/N - Lasix 80mg IV x 1, Mg repletion with 1gm, CC/AHA diet as tolerated Ppx - Lovenox 80 BID Code- - Full Dispo - Observation to medical with telemetry Present on Admission?: Yes History of Present Illness Chief Complaint: Covid-19 Primary Care Provider: Alfred Connolly is a 49yo C male with multiple medical comorbidities most notably HTN/HLP/DM/CHF, patient s/p MV repair, s/p myomectomy for hypertrophic cardiomyopathy, he has an AICD in place. Patient developed cough, fever, body aches acutely at 0200 on Saturday morning. He has had persistent symptoms - fever to 102, cough productive for pink-tinged sputum as well as body aches and diarrhea. Found to be positive for Covid-19 ER Course: No hypoxia noted Tylenol, Benzonatate, Toradol, Magnesium, NSS Allergies Allergy/AdvReac Type Severity Reaction Status Date / Time erythromycin base Allergy Severe Anaphylaxis Verified 08/03/20 19:26 Home Medications Medication Instructions Recorded Confirmed Type aspirin 81 mg PO QAM 01/21/18 08/03/20 History atorvastatin 10 mg PO QAM 01/21/18 08/03/20 History potassium chloride 20 meq PO QAM PRN 01/21/18 08/03/20 History metformin 1,000 mg PO BID 06/28/18 08/03/20 History Lantus Solostar U-100 Insulin 40 unit SUBCUT QAM 12/19/18 08/03/20 History diltiazem HCl [Cartia XT] 180 mg PO QAM 12/19/18 08/03/20 History metoprolol succinate 100 mg 100 mg PO DAILY tab 12/25/18 08/03/20 History tablet,extended release 24 hr Januvia 100 mg PO QAM 02/11/19 08/03/20 History insulin aspart U-100 [Novolog 5 unit SUBCUT HS 07/31/19 08/03/20 History Flexpen U-100 Insulin] insulin aspart U-100 [Novolog 6 - 14 unit SUBCUT TID 07/31/19 08/03/20 History Flexpen U-100 Insulin] furosemide 80 mg PO BID17 PRN 08/13/19 08/03/20 History Lantus Solostar U-100 Insulin 5 units SUBCUT HS 01/29/20 08/03/20 History hydrocodone-acetaminophen 1 tab PO DAILY PRN 04/17/20 08/03/20 History gabapentin 300 mg PO HS 08/03/20 08/03/20 History lidocaine 1 patch TOPICAL DAILY 08/03/20 08/03/20 History Past Med/Surg History Medical History Acute hyperglycemia Biventricular ICD (implantable cardioverter-defibrillator) in place (~08/2017) Single-chamber ICD 2006; Dual-chamber ICD 04/2017; Biventricular ICD 08/06/17 - [employer] Chronic back pain Chronic diastolic congestive heart failure CKD (chronic kidney disease) Closed fracture of cervical spine (Unknown) Depression NO MEDS History of cardiac arrest 12/2015 History of complete heart block HTN (hypertension) Hyperlipidemia Hypertrophic cardiomyopathy (Unknown) SEES DR. SAWYER Obesity Osteoarthritis Pulmonary nodules Sleep apnea CPAP Type 2 diabetes mellitus Valvular heart disease Mitral valve repair Surgical History History of appendectomy History of cardiac cath X 4 - [facility] - MOST RECENT SPRING 2017 - PACER MALFUNCTION - NO STENTS/ANGIOPLASTY - FOLLOWS W/ DR. SAWYER History of esophagogastroduodenoscopy (EGD) History of mitral valve repair DONE AT [facility] DEC 2015 Hx of surgical procedure SELF CONTAINED TUMOR REMOVED FROM SCROTUM S/P ventricular septal myectomy (~12/2015) Family History Mother Family history of reaction to anesthesia PONV Grandfather (Maternal) Family history of diabetes mellitus Grandmother (Maternal) Family history of diabetes mellitus Social History Smoking Status: Former smoker Tobacco Type: Cigarettes Second Hand Exposure: Yes; Hx Alcohol Use: Yes Alcohol type: beer and hard liquor Hx Substance Use: Yes Last Used Substance: Unknown Last Used Substance Other:: 1 WEEK AGO Substance Use Type Other:: LAST USE 2 YRS AGO Preferred Language: Serbian Communication Ability: Effective Hand Counter Required: No Beliefs That Will Affect Care: None Current Living Situation: Family Current Living Situation Comment: LIVES WITH MOTHER Feels Safe at Home: Yes Assistive Devices: None Review of Systems Review of Systems: All systems reviewed & are unremarkable except as noted in HPI & below Physical Exam Physical Exam: General: morbidly obese male patient resting comfortably, NAD, non-toxic in appearance, AA&O x 4 Skin: warm, dry, intact, no rashes or lesions HEENT: NC/AT, PERRL, EOMI, anicteric sclera, conjunctiva without injection, external ear normal to inspection and nontender, nares patent, moist mucus membranes, dentition intact, no oropharyngeal lesions, neck supple, trachea midline, no LAD, no thyromegaly, no JVD Heart: +S1/S2, regular, no m/r/g Lungs: equal air entry bilaterally, crackles in bilateral bases Abd: +BS, soft, NT/ND, no masses/organomegaly/ascites Ext: warm, 2+ pulses in UE/LE bilaterally, no clubbing/cyanosis or edema Neuro: nonfocal, patient AA&O x 4, speech intact, no facial droop, moving all extremities on command with equal strength 5/5 Results & Data Results & Data ([facility]) Vital Signs (Past 12 Hours) Vital Signs Temp Pulse Resp BP Pulse Ox 08/03/20 22:31 67 15 143/81 H 93 08/03/20 21:31 68 18 108/58 L 94 08/03/20 21:00 67 20 111/55 L 94 08/03/20 20:52 37.9 C H 08/03/20 20:30 68 20 110/64 94 08/03/20 20:00 72 24 120/64 96 08/03/20 19:31 75 16 114/74 94 08/03/20 18:46 37.9 C H 75 18 122/73 96 Laboratory Results Lab Results 08/03/20 08/03/20 08/03/20 Range/Units 19:31 19:31 19:32 WBC (4.8-10.8) K/uL RBC (4.7-6.1) M/uL Hgb (14.0-18.0) g/dL Hct (42-52) % MCV (80-100) fL MCH (25-34) pg MCHC (32-36) g/dL RDW Std Deviation (36.4-46.3) fL RDW Coeff of Valeria (11.5-14.5) % Plt Count (130-400) K/uL MPV (7.4-10.4) fL Immature Gran % (Auto) % Neut % (Auto) % Lymph % (Auto) % [place] % (Auto) % Eos % (Auto) % Baso % (Auto) % Neut # (Auto) (1.4-6.5) K/uL Lymph # (Auto) (1.2-3.4) K/uL [place] # (Auto) (0.11-0.59) K/uL Eos # (Auto) (0-0.5) K/uL Baso # (Auto) (0-0.2) K/uL Immature Gran # (Auto) (0.00-0.02) K/uL PT (9.0-12.0) Seconds INR (0.9-1.1) APTT (21.0-31.0) Seconds PTT Ratio Sodium (136-145) mmol/L Potassium (3.5-5.1) mmol/L Chloride (98-107) mmol/L Carbon Dioxide (21-32) mmol/L Anion Gap (3-11) BUN (7-18) mg/dl Creatinine (0.6-1.4) mg/dl Est Cr Clr Drug Dosing ml/min Est GFR ( Amer) Est GFR (Non-Af Amer) BUN/Creatinine Ratio (10-20) Glucose (70-99) mg/dl Lactate (0.4-2.0) mmol/L Calcium (8.5-10.1) mg/dl Magnesium (1.8-2.4) mg/dl Total Bilirubin (0.2-1) mg/dl AST (15-37) U/L ALT (12-78) U/L Alkaline Phosphatase (45-117) U/L Troponin I (0-0.045) ng/ml Total Protein (6.4-8.2) gm/dl Albumin (3.4-5.0) gm/dl Globulin (2.5-4.0) gm/dl Albumin/Globulin Ratio (0.9-2) Procalcitonin (0-0.5) ng/ml Nasal Screen MRSA (PCR) Negative (Negative) COVID-19 Eval Order CovFluRsv at [facility] SARS-CoV-2 (PCR) POSITIVE A* (Negative) Influenza Type A (PCR) Negative (Neg) Influenza Type B (PCR) Negative (Neg) RSV (RT-PCR) Negative (Neg) 08/03/20 08/03/20 08/03/20 Range/Units 19:43 19:43 19:43 WBC 4.00 L (4.8-10.8) K/uL RBC 5.12 (4.7-6.1) M/uL Hgb 15.5 (14.0-18.0) g/dL Hct 43.1 (42-52) % MCV 84.2 (80-100) fL MCH 30.3 (25-34) pg MCHC 36.0 (32-36) g/dL RDW Std Deviation 42.2 (36.4-46.3) fL RDW Coeff of Valeria 13.6 (11.5-14.5) % Plt Count 180 (130-400) K/uL MPV 11.7 H (7.4-10.4) fL Immature Gran % (Auto) 0.5 % Neut % (Auto) 54.6 % Lymph % (Auto) 30.3 % [place] % (Auto) 13.8 % Eos % (Auto) 0.5 % Baso % (Auto) 0.3 % Neut # (Auto) 2.19 (1.4-6.5) K/uL Lymph # (Auto) 1.21 (1.2-3.4) K/uL [place] # (Auto) 0.55 (0.11-0.59) K/uL Eos # (Auto) 0.02 (0-0.5) K/uL Baso # (Auto) 0.01 (0-0.2) K/uL Immature Gran # (Auto) 0.02 (0.00-0.02) K/uL PT 10.8 (9.0-12.0) Seconds INR 1.1 (0.9-1.1) APTT 29.7 (21.0-31.0) Seconds PTT Ratio 1.1 Sodium 135 L (136-145) mmol/L Potassium 3.7 (3.5-5.1) mmol/L Chloride 100 (98-107) mmol/L Carbon Dioxide 31 (21-32) mmol/L Anion Gap 4.0 (3-11) BUN 17 (7-18) mg/dl Creatinine 1.32 (0.6-1.4) mg/dl Est Cr Clr Drug Dosing 110.4 ml/min Est GFR ( Amer) 73.4 Est GFR (Non-Af Amer) 63.3 BUN/Creatinine Ratio 13.2 (10-20) Glucose 260 H (70-99) mg/dl Lactate (0.4-2.0) mmol/L Calcium 8.9 (8.5-10.1) mg/dl Magnesium 1.7 L (1.8-2.4) mg/dl Total Bilirubin 0.5 (0.2-1) mg/dl AST 84 H (15-37) U/L ALT 97 H (12-78) U/L Alkaline Phosphatase 76 (45-117) U/L Troponin I 0.108 H* (0-0.045) ng/ml Total Protein 7.3 (6.4-8.2) gm/dl Albumin 3.8 (3.4-5.0) gm/dl Globulin 3.5 (2.5-4.0) gm/dl Albumin/Globulin Ratio 1.1 (0.9-2) Procalcitonin (0-0.5) ng/ml Nasal Screen MRSA (PCR) (Negative) COVID-19 Eval Order SARS-CoV-2 (PCR) (Negative) Influenza Type A (PCR) (Neg) Influenza Type B (PCR) (Neg) RSV (RT-PCR) (Neg) 08/03/20 08/03/20 08/03/20 Range/Units 19:43 19:43 21:47 WBC (4.8-10.8) K/uL RBC (4.7-6.1) M/uL Hgb (14.0-18.0) g/dL Hct (42-52) % MCV (80-100) fL MCH (25-34) pg MCHC (32-36) g/dL RDW Std Deviation (36.4-46.3) fL RDW Coeff of Valeria (11.5-14.5) % Plt Count (130-400) K/uL MPV (7.4-10.4) fL Immature Gran % (Auto) % Neut % (Auto) % Lymph % (Auto) % [place] % (Auto) % Eos % (Auto) % Baso % (Auto) % Neut # (Auto) (1.4-6.5) K/uL Lymph # (Auto) (1.2-3.4) K/uL [place] # (Auto) (0.11-0.59) K/uL Eos # (Auto) (0-0.5) K/uL Baso # (Auto) (0-0.2) K/uL Immature Gran # (Auto) (0.00-0.02) K/uL PT (9.0-12.0) Seconds INR (0.9-1.1) APTT (21.0-31.0) Seconds PTT Ratio Sodium (136-145) mmol/L Potassium (3.5-5.1) mmol/L Chloride (98-107) mmol/L Carbon Dioxide (21-32) mmol/L Anion Gap (3-11) BUN (7-18) mg/dl Creatinine (0.6-1.4) mg/dl Est Cr Clr Drug Dosing ml/min Est GFR ( Amer) Est GFR (Non-Af Amer) BUN/Creatinine Ratio (10-20) Glucose (70-99) mg/dl Lactate 2.6 H* 1.5 (0.4-2.0) mmol/L Calcium (8.5-10.1) mg/dl Magnesium (1.8-2.4) mg/dl Total Bilirubin (0.2-1) mg/dl AST (15-37) U/L ALT (12-78) U/L Alkaline Phosphatase (45-117) U/L Troponin I (0-0.045) ng/ml Total Protein (6.4-8.2) gm/dl Albumin (3.4-5.0) gm/dl Globulin (2.5-4.0) gm/dl Albumin/Globulin Ratio (0.9-2) Procalcitonin 0.11 (0-0.5) ng/ml Nasal Screen MRSA (PCR) (Negative) COVID-19 Eval Order SARS-CoV-2 (PCR) (Negative) Influenza Type A (PCR) (Neg) Influenza Type B (PCR) (Neg) RSV (RT-PCR) (Neg) Diagnostic Findings XR chest 1V portable HISTORY: 49 years-old Male SEPSIS acute sepsis COMPARISON: Chest radiograph 04/16/2020, chest CT 01/28/2020 TECHNIQUE: Portable AP view of the chest FINDINGS: Cardiomegaly with prior median sternotomy. Left subclavian pacer/AICD. Minimal retrocardiac opacities suggestive of atelectasis. No pneumothorax, pleural effusion, airspace consolidation or overt pulmonary edema. Bones of the chest appear grossly intact. IMPRESSION: Cardiomegaly without acute process. ACT 112: Negative or not required by law. The above report was generated using voice recognition software. It may contain grammatical, syntax or spelling errors. Electronically signed by: Tom Soriano M.D. 08/03/2020 7:55 PM Dictated: 08/03/[id number]: 08/03/[id number] ECG Additional Comments: Atrial sensed, ventricular paced, no acute ischemic changes. Unchanged from prior study Code Status & VTE Plan VTE Prophylaxis Plan VTE Prophylaxis will be ordered: Yes PG Care Time/CCT Total # of Minutes Spent Total Time Spent with Patient: Total time spent is greater than 50% in coordination of care (as documented) at patient's floor/unit and/or counseling patient: Coding Level of Care Code 32987 OBS Care - Level 3 Diagnoses COVID-19 U07.1 Elevated troponin R79.89 CKD (chronic kidney disease) N18.9 Chronic kidney disease stage: unspecified stage HTN (hypertension) I10 Hypertension type: essential hypertension Hyperlipidemia E78.5 Hyperlipidemia type: unspecified Chronic diastolic congestive heart failure I50.32 Type 2 diabetes mellitus E11.65; Z79.4 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 extermination inspector insulin use: with long-term use 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 complication status: with hyperglycemia Sleep apnea G47.30 Sleep apnea type: unspecified type Hypertrophic cardiomyopathy I42.2 (1) CKD (chronic kidney disease) Chronic kidney disease stage: unspecified stage Qualified Code(s): N18.9 - Chronic kidney disease, unspecified (2) HTN (hypertension) Hypertension type: essential hypertension Qualified Code(s): I10 - Essential (primary) hypertension (3) Hyperlipidemia Hyperlipidemia type: unspecified Qualified Code(s): E78.5 - Hyperlipidemia, unspecified (4) Type 2 diabetes mellitus 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 long-term insulin use: with extermination inspector use 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 complication status: with hyperglycemia Qualified Code(s): E11.65 - Type 2 diabetes mellitus with hyperglycemia; Z79.4 - retirement (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 (5) Sleep apnea Sleep apnea type: unspecified type Qualified Code(s): G47.30 - Sleep apnea, unspecified
[2020-08-04] MEDS ORDERED: DEXTROSE 50% 50 ML SYRINGE IV PRN (00:16)
[2020-08-04] MEDS ORDERED: FUROSEMIDE 40 MG/4 ML VIAL IV STA (00:16)
[2020-08-04] MEDS ORDERED: GLUCOSE 10 TABS/TUBE PO PRN (00:16)
[2020-08-04] MEDS ORDERED: GLUCOSE 40% GEL 15 GM TUBE PO PRN (00:16)
[2020-08-04] MEDS ORDERED: CARBOHYDRATES FOR HYPOGLYCEMIA PO PRN (00:16)
[2020-08-04] MEDS ORDERED: GLUCAGON FOR INJ 1 MG VIAL SQ PRN (00:16)
[2020-08-04] MEDS ORDERED: ALBUTEROL HFA 8 GM INHALER INH PRN (00:16)
[2020-08-04] MEDS ORDERED: FUROSEMIDE 80 MG in SYRINGE 0 ML IV ONE (00:30)
[2020-08-04] MEDS: ACETAMINOPHEN 325 MG TAB PO PRN (05:51)
[2020-08-04] MEDS: BENZONATATE 100 MG CAPSULE PO PRN ×2 (05:51→10:29)
[2020-08-04 06:09] LABS: Basophils # (auto) 0.01 K/uL (0-0.2); Basophils % (auto) 0.3 %; Eosinophils # (auto) 0.03 K/uL (0-0.5); Eosinophils % (auto) 0.8 %; Hematocrit (blood only) 42.4 % (42-52); Hemoglobin 15.4 g/dL (14.0-18.0); Immature Granulocytes # (auto) 0.01 K/uL (0.00-0.02); Immature Granulocytes % (auto) 0.3 %; Lymphocytes # (auto) 0.94 K/uL (1.2-3.4); Lymphocytes % (auto) 24.7 %; Mean Corpuscular Hgb Conc 36.3 g/dL (32-36); Mean Corpuscular Volume 85.3 fL (80-100); Mean Platelet Volume 11.6 fL (7.4-10.4); Monocytes # (auto) 0.79 K/uL (0.11-0.59); Monocytes % (auto) 20.7 %; Neutrophils # (auto) 2.03 K/uL (1.4-6.5); Neutrophils % (auto) 53.2 %; Platelet Count 151 K/uL (130-400); RDW Coefficient of Variation 13.9 % (11.5-14.5); RDW Standard Deviation 43.1 fL (36.4-46.3); Red Blood Count 4.97 M/uL (4.7-6.1); White Blood Count 3.81 K/uL (4.8-10.8)
[2020-08-04 06:51] LABS: Albumin Level 3.5 gm/dl (3.4-5.0); BUN Creatinine Ratio 17.2 (10-20); Bilirubin Direct 0.2 mg/dl (0-0.2); Calcium 8.4 mg/dl (8.5-10.1); Creatinine Clr Calc Pharmacy 121.4 ml/min; Est GFR (African American) 84.1; Est GFR (Non-African American) 72.5; Potassium 3.3 mmol/L (3.5-5.1)
[2020-08-04 07:21] LABS: Bilirubin,Total 0.5 mg/dl (0.2-1); Troponin I 0.11 ng/ml (0-0.045)
[2020-08-04 07:31] LABS: Estimated Average Glucose 235 mg/dl; Hemoglobin A1C 9.8 % (4.5-5.6)
[2020-08-04] MEDS: ASPIRIN 81 MG ECTAB PO SCH (08:28)
[2020-08-04] MEDS: METOPROLOL SUCC 50MG EXT REL TAB PO SCH (08:28)
[2020-08-04] MEDS: ATORVASTATIN 10 MG TAB PO SCH (08:28)
[2020-08-04] MEDS: INSULIN ASPART 100 UNITS/ML 3 ML PEN SC SCH ×4 (08:28→21:39)
[2020-08-04] MEDS: INSULIN GLARGINE SOLOSTAR 100 UNITS/ML 3 ML PEN SQ SCH ×2 (08:28→21:38)
[2020-08-04] MEDS: guaiFENesin 600 MG TABCR PO SCH ×2 (08:28→20:56)
[2020-08-04] MEDS: dilTIAZem HCL 180 MG CAPCR PO SCH (08:29)
[2020-08-04] MEDS: LIDOCAINE 5% 1 PATCH TD SCH (08:29)
[2020-08-04] MEDS: ENOXAPARIN 80 MG/0.8 ML SYR SQ SCH ×2 (08:29→20:56)
[2020-08-04] MEDS ORDERED: REMDESIVIR 200 MG in SODIUM CHLORIDE 0.9% 210 ML IV ONE (09:00)
[2020-08-04] MEDS: INSULIN HUMAN NPH SC SCH (09:22)
[2020-08-04] MEDS: POTASSIUM CHLORIDE CRTAB 20 MEQ TABCR PO SCH ×3 (09:37→20:56)
[2020-08-04] MEDS: dexAMETHasone 6 MG in SYRINGE 0 ML IV SCH (09:38)
--- NOTE | 2020-08-04 10:44 | Electrocardiogram Report ---
Test Reason : Blood Pressure : / mmHG Vent. Rate : 073 BPM Atrial Rate : 073 BPM P-R Int : 178 ms QRS Dur : 184 ms QT Int : 486 ms P-R-T Axes : 003 -87 091 degrees QTc Int : 535 ms Atrial-sensed ventricular-paced rhythm Abnormal ECG When compared with ECG of 16-APR-2020 23:35, Vent. rate has decreased BY 3 BPM Confirmed by Lucio Millard ([id number]) on 08/04/2020 10:43:52 AM Referred By: Alfred Davis Confirmed By:Sonny Millard
[2020-08-04] MEDS ORDERED: SODIUM CHLORIDE 0.9% 10ML FLUSH IV SCH (11:00)
[2020-08-04] MEDS ORDERED: MAGNESIUM SULFATE / D5W 1 GM/100 ML BAG IV ONE (11:00)
[2020-08-04] MEDS: SODIUM CHLORIDE 0.9% 10ML FLUSH IV SCH (12:30)
[2020-08-04] MEDS ORDERED: KETOROLAC TROMETHAMINE 15 MG/ML VIAL IV ONE (20:54)
[2020-08-04] MEDS: GABAPENTIN 300 MG CAP PO SCH (20:56)
--- NOTE | 2020-08-04 22:02 | Hospitalist Progress Note ---
Date of Service August 04, 2020 Assessment & Plan (1) COVID-19: 49yo male presenting with Covid-19. Day 3 of illness. Symptoms include fever, body aches, diarrhea as well as cough and mild SOB. Labs significant for leukopenia with lymphopenia. Qg=895, mildly elevated AST and ALT at 84 and 97, respectively. His vital signs are stable and he has been >94% on room air. No supplemental oxygen required saturations dropped to 92% on room air today, change to full admission treat with dexamethasone 6mg IV daily, Remdesivir 5 days -Tylenol, Guaifenesin PRN -Albuterol PRN -Will use Lovenox 80mg BID for DVT prophylaxis as patient with Covid-19, BMI=43 (2) Elevated troponin: Patietn with chronically elevated troponin. Troponin today = 0.11 which is slightly higher than previous values. He has some chest pain with coughing otherwise denies CP or palpitations. He does not feel that he is volume overloaded. -Telemetry monitoring not concerned about troponin, this does NOT represent demand ischemia (3) CKD (chronic kidney disease): BUN and Cr are at baseline, making urine, K low at 3.3 oral K replacement ordered check BMP in the morning (4) HTN (hypertension): Blood pressure stable -Continue Diltiazem -Continue Metoprolol -Continue to monitor (5) Hyperlipidemia: Chronic. Stable -Continue Atorvastatin 10mg po qAM (6) Chronic diastolic congestive heart failure: Patient appears to be well compensated overall. He has not taken Lasix at home recently BNP normal -Monitor daily weights -Monitor I/Os -Continue Metoprolol (7) Type 2 diabetes mellitus: Elevated blood sugar today. 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 Stable. Patient is s/p myomectomy. Has AICD in place. He denies any discharges from device -Continue Metoprolol -Optimize electrolytes F/E/N - CC/AHA diet as tolerated Ppx - Lovenox 80 BID Code- - Full Dispo - change to full admission, tele (10) Hypokalemia: low at 3.3, oral replacement ordered Admission and Anticipated Discharge Date Admission Date: August 04, 2020 Subjective patient with really bad cough, causes severe chest pain and burning whenever he coughs he says it feels similar to when he had open heart surgery no fever/chills, no dyspnea, no diarrhea today, his appetite is poor he says he has been ill for only 4 days, no other sick contacts, he is not sure how he got this at one point this morning he dropped to 92% on room air, started on dexamethasone and Remdesivir will need to watch sugars, added NPH 50 units with the dexamethasone checked labs, WBC 3k, K 3.3, Cr 1.1 troponin 0.11, he says that his troponin is always slightly high from his cardiomyopathy Review of Systems Review of Systems: All systems reviewed & are unremarkable except as noted in Subjective Constitutional: + fatigue and + weakness; no fever, no chills and no sweats Respiratory: + cough, + chest congestion and + pain with cough; no dyspnea, no dyspnea on exertion, no sputum production and no wheezing Cardiovascular: + chest pain (with cough); no dyspnea, no dyspnea on exertion, no palpitations, no syncope and no edema Gastrointestinal: no abdominal pain, no nausea, no vomiting, no constipation and no diarrhea/loose stools Physical Exam Constitutional: well developed, + ill appearing, + obese and comfortable; no acute distress Neck: trachea midline, no thyromegaly + thick neck Respiratory: normal respiratory effort, lungs clear to auscultation Cardiovascular: RRR, no murmur, no edema Chest (Breasts): Chest: + pacemaker; + abnormal inspection of chest (midline scar) Gastrointestinal (Abdomen): normal bowel sounds, soft, nontender, no hepatosplenomegaly Musculoskeletal: no cyanosis or clubbing, extremities motor strength 5/5 Skin: no rashes, warm and dry Neurologic: patellar DTR's 2+ bilat, sensation intact and PERRL, EOMI, accommodation nl, no face palsy, no dysarthria Psychiatric: A+Ox3, euthymic affect Lymphatic: no cervical or axillary lymphadenopathy Results & Data Results & Data ([facility]) Vital Signs (Past 12 Hours) Vital Signs Temp Pulse Pulse Resp BP Pulse Ox 08/04/20 19:00 36.7 C 71 20 139/77 95 08/04/20 16:28 36.8 C 82 18 115/82 93 08/04/20 16:00 72 08/04/20 11:19 36.7 C 71 16 155/104 H 93 Laboratory Results Laboratory Results - last 24 hr 08/03/20 08/03/20 08/04/20 19:43 21:47 00:28 WBC RBC Hgb Hct MCV MCH MCHC RDW Std Deviation RDW Coeff of Valeria Plt Count MPV Immature Gran % (Auto) Neut % (Auto) Lymph % (Auto) [place] % (Auto) Eos % (Auto) Baso % (Auto) Neut # (Auto) Lymph # (Auto) [place] # (Auto) Eos # (Auto) Baso # (Auto) Immature Gran # (Auto) Sodium Potassium Chloride Carbon Dioxide Anion Gap BUN Creatinine Est Cr Clr Drug Dosing Est GFR ( Amer) Est GFR (Non-Af Amer) BUN/Creatinine Ratio Glucose POC Glucose 167 H Estimat Average Glucose Hemoglobin A1c Lactate 1.5 Calcium Total Bilirubin Direct Bilirubin AST ALT Alkaline Phosphatase Total Creatine Kinase Troponin I NT-Pro-B Natriuret Pep 357 Total Protein Albumin 08/04/20 08/04/20 08/04/20 05:34 05:34 05:34 WBC 3.81 L RBC 4.97 Hgb 15.4 Hct 42.4 MCV 85.3 MCH 31.0 MCHC 36.3 H RDW Std Deviation 43.1 RDW Coeff of Valeria 13.9 Plt Count 151 MPV 11.6 H Immature Gran % (Auto) 0.3 Neut % (Auto) 53.2 Lymph % (Auto) 24.7 [place] % (Auto) 20.7 Eos % (Auto) 0.8 Baso % (Auto) 0.3 Neut # (Auto) 2.03 Lymph # (Auto) 0.94 L [place] # (Auto) 0.79 H Eos # (Auto) 0.03 Baso # (Auto) 0.01 Immature Gran # (Auto) 0.01 Sodium 138 Potassium 3.3 L Chloride 103 Carbon Dioxide 31 Anion Gap 4.0 BUN 20 H Creatinine 1.18 Est Cr Clr Drug Dosing 121.4 Est GFR ( Amer) 84.1 Est GFR (Non-Af Amer) 72.5 BUN/Creatinine Ratio 17.2 Glucose 202 H POC Glucose Estimat Average Glucose 235 Hemoglobin A1c 9.8 H Lactate Calcium 8.4 L Total Bilirubin 0.5 Direct Bilirubin 0.2 AST 82 H ALT 96 H Alkaline Phosphatase 72 Total Creatine Kinase 180 Troponin I 0.110 H* NT-Pro-B Natriuret Pep Total Protein 7.0 Albumin 3.5 08/04/20 08/04/20 08/04/20 07:26 11:17 16:27 WBC RBC Hgb Hct MCV MCH MCHC RDW Std Deviation RDW Coeff of Valeria Plt Count MPV Immature Gran % (Auto) Neut % (Auto) Lymph % (Auto) [place] % (Auto) Eos % (Auto) Baso % (Auto) Neut # (Auto) Lymph # (Auto) [place] # (Auto) Eos # (Auto) Baso # (Auto) Immature Gran # (Auto) Sodium Potassium Chloride Carbon Dioxide Anion Gap BUN Creatinine Est Cr Clr Drug Dosing Est GFR ( Amer) Est GFR (Non-Af Amer) BUN/Creatinine Ratio Glucose POC Glucose 230 H 203 H 278 H Estimat Average Glucose Hemoglobin A1c Lactate Calcium Total Bilirubin Direct Bilirubin AST ALT Alkaline Phosphatase Total Creatine Kinase Troponin I NT-Pro-B Natriuret Pep Total Protein Albumin 08/04/20 20:43 WBC RBC Hgb Hct MCV MCH MCHC RDW Std Deviation RDW Coeff of Valeria Plt Count MPV Immature Gran % (Auto) Neut % (Auto) Lymph % (Auto) [place] % (Auto) Eos % (Auto) Baso % (Auto) Neut # (Auto) Lymph # (Auto) [place] # (Auto) Eos # (Auto) Baso # (Auto) Immature Gran # (Auto) Sodium Potassium Chloride Carbon Dioxide Anion Gap BUN Creatinine Est Cr Clr Drug Dosing Est GFR ( Amer) Est GFR (Non-Af Amer) BUN/Creatinine Ratio Glucose POC Glucose 232 H Estimat Average Glucose Hemoglobin A1c Lactate Calcium Total Bilirubin Direct Bilirubin AST ALT Alkaline Phosphatase Total Creatine Kinase Troponin I NT-Pro-B Natriuret Pep Total Protein Albumin Medications Administered Current Inpatient Medications Acetaminophen (Acetaminophen 325 Mg Tab) 650 mg PO Q4H PRN PRN Reason: Pain or Fever Stop: 09/03/20 00:15 Last Admin: 08/04/20 05:51 Dose: 650 mg Documented by: Albuterol (Albuterol Hfa 8 Gm Inhaler) 2 puffs INH Q4H PRN PRN Reason: cough/SOB Stop: 09/03/20 00:15 Aspirin (Aspirin 81 Mg Ectab) 81 mg PO QAM [facility] Stop: 09/03/20 08:59 Last Admin: 08/04/20 08:28 Dose: 81 mg Documented by: Atorvastatin Calcium (Atorvastatin 10 Mg Tab) 10 mg PO QAM [facility] Stop: 09/03/20 08:59 Last Admin: 08/04/20 08:28 Dose: 10 mg Documented by: Benzonatate (Benzonatate 100 Mg Capsule) 100 mg PO TID PRN PRN Reason: cough Stop: 09/03/20 00:15 Last Admin: 08/04/20 10:29 Dose: 100 mg Documented by: Dextrose (Dextrose 50% 50 Ml Syringe) 25 - 50 ml IV UD PRN; Protocol PRN Reason: Hypoglycemia Protocol Stop: 09/03/20 00:15 Diltiazem HCl ([facility]em Hcl 180 Mg Capcr) [facility]: 09/03/20 08:59 Last Admin: 08/04/20 08:29 Dose: 180 mg Documented by: Enoxaparin Sodium (Enoxaparin 80 Mg/0.8 Ml Syr) 80 mg SQ Q12H [facility] Stop: 09/03/20 08:59 Last Admin: 08/04/20 20:56 Dose: 80 mg Documented by: Gabapentin (Gabapentin 300 Mg Cap) 300 mg PO HS [facility] Stop: 09/03/20 20:59 Last Admin: 08/04/20 20:56 Dose: 300 mg Documented by: Glucagon (Glucagon For Inj 1 Mg Vial) 1 mg SQ UD PRN; Protocol PRN Reason: Hypoglycemia Protocol Stop: 09/03/20 00:15 Glucose (Glucose 10 Tabs/Tube) 4 - 8 tabs PO UD PRN; Protocol PRN Reason: Hypoglycemia Protocol Stop: 09/03/20 00:15 Glucose (Glucose 40% Gel 15 Gm Tube) 15 - 30 gm PO UD PRN; Protocol PRN Reason: Hypoglycemia Protocol Stop: 09/03/20 00:15 Guaifenesin (Guaifenesin 600 Mg Tabcr) 1,200 mg PO Q12 [facility] Stop: 09/03/20 08:59 Last Admin: 08/04/20 20:56 Dose: 1,200 mg Documented by: Guaifenesin/Codeine Phosphate (Guaifenesin/Codeine 200mg/20mg 10ml Udc) 10 ml PO Q6H PRN PRN Reason: Cough Stop: 09/03/20 09:56 Last Admin: 08/04/20 21:34 Dose: 10 ml Documented by: Remdesivir 100 mg/ Sodium (Chloride) 250 mls @ 250 mls/hr IV Q24H [facility]; Protocol Stop: 08/08/20 12:59 Dexamethasone 6 mg/ Syringe 1.5 mls @ 1 mls/min IV DAILY [facility] Stop: 08/13/20 09:02 Last Admin: 08/04/20 09:38 Dose: 1 mls/min Documented by: Insulin Aspart (Insulin Aspart 100 Units/Ml 3 Ml Pen) 0 units SC ACHS [facility] Stop: 09/03/20 07:29 Last Admin: 08/04/20 21:39 Dose: 15 units Documented by: Insulin Glargine (Insulin Glargine Solostar 100 Units/Ml 3 Ml Pen) 5 units SQ HS [facility] Stop: 09/03/20 20:59 Last Admin: 08/04/20 21:38 Dose: 5 units Documented by: Insulin Glargine (Insulin Glargine Solostar 100 Units/Ml 3 Ml Pen) 40 units SQ QAM [facility] Stop: 09/03/20 08:59 Last Admin: 08/04/20 08:28 Dose: 40 units Documented by: Insulin Human NPH (Insulin Human Nph) 50 units SC QAM [facility] Stop: 09/03/20 08:59 Last Admin: 08/04/20 09:22 Dose: 50 units Documented by: Lidocaine (Lidocaine 5% 1 Patch) 1 patch TD DAILY [facility] Stop: 09/03/20 08:59 Last Admin: 08/04/20 08:29 Dose: 1 patch Documented by: Metoprolol Succinate (Metoprolol Succ 50mg Ext Rel Tab) 100 mg PO DAILY [facility] Stop: 09/03/20 08:59 Last Admin: 08/04/20 08:28 Dose: 100 mg Documented by: Miscellaneous (Carbohydrates For Hypoglycemia ) 15 - 30 gm PO UD PRN PRN Reason: Hypoglycemia Protocol Stop: 09/03/20 00:15 Miscellaneous (Remove Lidoderm Patch) 1 ea N/A DAILY@2100 [facility] Stop: 09/03/20 20:59 Last Admin: 04/01/21 20:55 Dose: 1 ea Documented by: Potassium Chloride (Potassium Chloride Crtab 20 Meq Tabcr) 20 meq PO TID [facility] Stop: 09/03/20 08:59 Last Admin: 08/04/20 20:56 Dose: 20 meq Documented by: Sodium Chloride (Sodium Chloride 0.9% 10ml Flush) 30 ml IV Q24H [facility] Stop: 08/08/20 13:01 Last Admin: 08/04/20 12:30 Dose: 30 ml Documented by: PG Care Time/CCT Total # of Minutes Spent Total Time Spent with Patient: Total time spent is greater than 50% in coordination of care (as documented) at patient's floor/unit and/or counseling patient: Coding Level of Care Code 15850 Subseq Hosp Care Lvl 3 Diagnoses COVID-19 U07.1 Elevated troponin R79.89 CKD (chronic kidney disease) N18.9 Chronic kidney disease stage: unspecified stage HTN (hypertension) I10 Hypertension type: essential hypertension Hyperlipidemia E78.5 Hyperlipidemia type: unspecified Chronic diastolic congestive heart failure I50.32 Type 2 diabetes mellitus E11.65; Z79.4 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 complication status: with hyperglycemia Sleep apnea G47.30 Sleep apnea type: unspecified type Hypertrophic cardiomyopathy I42.2 Hypokalemia E87.6 (1) CKD (chronic kidney disease) Chronic kidney disease stage: unspecified stage Qualified Code(s): N18.9 - Chronic kidney disease, unspecified (2) HTN (hypertension) Hypertension type: essential hypertension Qualified Code(s): I10 - Essential (primary) hypertension (3) Hyperlipidemia Hyperlipidemia type: unspecified Qualified Code(s): E78.5 - Hyperlipidemia, unspecified (4) Type 2 diabetes mellitus 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 prison insulin use: with terminal press operator use 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 complication status: with hyperglycemia Qualified Code(s): E11.65 - Type 2 diab etes mellitus with hyperglycemia; Z79.4 - longterm (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 (5) Sleep apnea Sleep apnea type: unspecified type Qualified Code(s): G47.30 - Sleep apnea, unspecified
[2020-08-05 06:34] LABS: Hematocrit (blood only) 42.9 % (42-52); Hemoglobin 14.9 g/dL (14.0-18.0); Mean Corpuscular Hemoglobin 29.5 pg (25-34); Mean Corpuscular Hgb Conc 34.7 g/dL (32-36); Mean Platelet Volume 11.9 fL (7.4-10.4); Platelet Count 155 K/uL (130-400); RDW Coefficient of Variation 13.5 % (11.5-14.5); RDW Standard Deviation 41.7 fL (36.4-46.3); Red Blood Count 5.05 M/uL (4.7-6.1); White Blood Count 4.36 K/uL (4.8-10.8)
[2020-08-05 07:15] LABS: BUN Creatinine Ratio 27.5 (10-20); Calcium 8.6 mg/dl (8.5-10.1); Creatinine Clr Calc Pharmacy 172.6 ml/min; Est GFR (African American) 120.6; Magnesium 2.4 mg/dl (1.8-2.4); Potassium 4.4 mmol/L (3.5-5.1)
[2020-08-05] MEDS: ATORVASTATIN 10 MG TAB PO SCH (08:46)
[2020-08-05] MEDS: METOPROLOL SUCC 50MG EXT REL TAB PO SCH (08:46)
[2020-08-05] MEDS: ASPIRIN 81 MG ECTAB PO SCH (08:46)
[2020-08-05] MEDS: guaiFENesin 600 MG TABCR PO SCH ×2 (08:46→21:15)
[2020-08-05] MEDS: POTASSIUM CHLORIDE CRTAB 20 MEQ TABCR PO SCH ×2 (08:47→13:52)
[2020-08-05] MEDS: dilTIAZem HCL 180 MG CAPCR PO SCH (08:47)
[2020-08-05] MEDS: dexAMETHasone 6 MG in SYRINGE 0 ML IV SCH (08:48)
[2020-08-05] MEDS: LIDOCAINE 5% 1 PATCH TD SCH (08:48)
[2020-08-05] MEDS: ENOXAPARIN 80 MG/0.8 ML SYR SQ SCH ×2 (08:49→21:15)
[2020-08-05] MEDS: INSULIN ASPART 100 UNITS/ML 3 ML PEN SC SCH ×4 (09:13→21:16)
[2020-08-05] MEDS: INSULIN GLARGINE SOLOSTAR 100 UNITS/ML 3 ML PEN SQ SCH ×2 (09:13→21:15)
[2020-08-05] MEDS: INSULIN HUMAN NPH SC SCH (09:13)
[2020-08-05] MEDS: REMDESIVIR 100 MG in SODIUM CHLORIDE 0.9% 230 ML IV SCH (12:28)
[2020-08-05] MEDS: ACETAMINOPHEN 325 MG TAB PO PRN ×3 (12:29→21:16)
[2020-08-05] MEDS: BENZONATATE 100 MG CAPSULE PO PRN (12:29)
--- NOTE | 2020-08-05 13:24 | Hospitalist Progress Note ---
Date of Service August 05, 2020 Assessment & Plan (1) COVID-19: 49yo male presenting with Covid-19. Day 3 of illness. Symptoms include fever, body aches, diarrhea as well as cough and mild SOB. Labs significant for leukopenia with lymphopenia. Ke=286, mildly elevated AST and ALT at 84 and 97, respectively. His vital signs are stable and he has been >94% on room air. No supplemental oxygen required saturations dropped to 92% on room air on 08/04, changed to full admission treat with dexamethasone 6mg IV daily, Remdesivir 5 days, day 2 of both -Tylenol, Guaifenesin PRN -Albuterol PRN -Will use Lovenox 80mg BID for DVT prophylaxis as patient with Covid-19, BMI=43 feeling better, breathing easy, less cough if he looks this good tomorrow will send home on dexamethasone for a full course (2) Elevated troponin: Patietn with chronically elevated troponin. Troponin 08/04 = 0.11 which is slightly higher than previous values. He has some chest pain with coughing otherwise denies CP or palpitations. He does not feel that he is volume ove rloaded. -Telemetry monitoring not concerned about troponin, this does NOT represent demand ischemia (3) CKD (chronic kidney disease): CKD stage II BUN and Cr are at baseline, making urine, K low at 3.3 oral K replacement ordered, K up to 4.4 today, stop replacement check BMP again in the morning (4) HTN (hypertension): Blood pressure stable -Continue Diltiazem -Continue Metoprolol -Continue to monitor (5) Hyperlipidemia: Chronic. Stable -Continue Atorvastatin 10mg po qAM (6) Chronic diastolic congestive heart failure: Patient appears to be well compensated overall. He has not taken Lasix at home recently BNP normal -Monitor daily weights -Monitor I/Os -Continue Metoprolol (7) Type 2 diabetes mellitus: Elevated blood sugar today. 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 Stable. Patient is s/p myomectomy. Has AICD in place. He denies any discharges from device -Continue Metoprolol -Optimize electrolytes F/E/N - CC/AHA diet as tolerated Ppx - Lovenox 80 BID Code- - Full Dispo - change to full admission, tele (10) Hypokalemia: resolved, up to 4.4 today, stop PO replacement Admission and Anticipated Discharge Date Admission Date: August 04, 2020 Subjective patient feeling better, coughing less, no fever, breathing easy had a headache with rushing sound in right ear earlier but that went away eating well, no diarrhea, making urine but he admits it is dark vitals stable, WBC 4k, Hb 14, plts 155k Cr 0.8, BUN 23, K 4.4 Review of Systems Review of Systems: All systems reviewed & are unremarkable except as noted in Subjective Physical Exam Constitutional: well developed, + obese and comfortable; no acute distress Neck: trachea midline, no thyromegaly + thick neck Respiratory: normal respiratory effort, lungs clear to auscultation Cardiovascular: RRR, no murmur, no edema Chest (Breasts): Chest: + pacemaker; + abnormal inspection of chest (midline scar) Gastrointestinal (Abdomen): normal bowel sounds, soft, nontender, no hepatosplenomegaly Musculoskeletal: no cyanosis or clubbing, extremities motor strength 5/5 Skin: no rashes, warm and dry Neurologic: patellar DTR's 2+ bilat, sensation intact and PERRL, EOMI, accommodation nl, no face palsy, no dysarthria Psychiatric: A+Ox3, euthymic affect Lymphatic: no cervical or axillary lymphadenopathy Results & Data Results & Data ([facility]) Vital Signs (Past 12 Hours) Vital Signs Temp Pulse Pulse Resp BP Pulse Ox 08/05/20 11:56 36.5 C 64 19 148/89 H 94 08/05/20 07:37 36.5 C 63 20 154/105 H 93 08/05/20 07:30 60 08/05/20 04:00 36.8 C 63 20 131/75 95 08/05/20 03:09 65 18 92 Laboratory Results Laboratory Results - last 24 hr 08/04/20 08/04/20 08/05/20 16:27 20:43 05:51 WBC 4.36 L RBC 5.05 Hgb 14.9 Hct 42.9 MCV 85.0 MCH 29.5 MCHC 34.7 RDW Std Deviation 41.7 RDW Coeff of Valeria 13.5 Plt Count 155 MPV 11.9 H Sodium Potassium Chloride Carbon Dioxide Anion Gap BUN Creatinine Est Cr Clr Drug Dosing Est GFR ( Amer) Est GFR (Non-Af Amer) BUN/Creatinine Ratio Glucose POC Glucose 278 H 232 H Calcium Magnesium 08/05/20 08/05/20 08/05/20 05:51 07:34 11:24 WBC RBC Hgb Hct MCV MCH MCHC RDW Std Deviation RDW Coeff of Valeria Plt Count MPV Sodium 137 Potassium 4.4 D Chloride 107 Carbon Dioxide 27 Anion Gap 3.0 BUN 23 H Creatinine 0.83 D Est Cr Clr Drug Dosing 172.6 Est GFR ( Amer) 120.6 Est GFR (Non-Af Amer) 104.0 BUN/Creatinine Ratio 27.5 H Glucose 151 H POC Glucose 154 H 302 H* Calcium 8.6 Magnesium 2.4 08/05/20 11:26 WBC RBC Hgb Hct MCV MCH MCHC RDW Std Deviation RDW Coeff of Valeria Plt Count MPV Sodium Potassium Chloride Carbon Dioxide Anion Gap BUN Creatinine Est Cr Clr Drug Dosing Est GFR ( Amer) Est GFR (Non-Af Amer) BUN/Creatinine Ratio Glucose POC Glucose 286 H Calcium Magnesium Medications Administered Current Inpatient Medications Acetaminophen (Acetaminophen 325 Mg Tab) 650 mg PO Q4H PRN PRN Reason: Pain or Fever Stop: 09/03/20 00:15 Last Admin: 08/05/20 12:29 Dose: 650 mg Documented by: Albuterol (Albuterol Hfa 8 Gm Inhaler) 2 puffs INH Q4H PRN PRN Reason: cough/SOB Stop: 09/03/20 00:15 Aspirin (Aspirin 81 Mg Ectab) 81 mg PO [facility] Stop: 09/03/20 08:59 Last Admin: 08/05/20 08:46 Dose: 81 mg Documented by: Atorvastatin Calcium (Atorvastatin 10 Mg Tab) 10 mg PO [facility] Stop: 09/03/20 08:59 Last Admin: 08/05/20 08:46 Dose: 10 mg Documented by: Benzonatate (Benzonatate 100 Mg Capsule) 100 mg PO TID PRN PRN Reason: cough Stop: 09/03/20 00:15 Last Admin: 08/05/20 12:29 Dose: 100 mg Documented by: Dextrose (Dextrose 50% 50 Ml Syringe) 25 - 50 ml IV UD PRN; Protocol PRN Reason: Hypoglycemia Protocol Stop: 09/03/20 00:15 Diltiazem HCl (Diltiazem Hcl 180 Mg Capcr) 180 mg PO QAM [facility] Stop: 09/03/20 08:59 Last Admin: 08/05/20 08:47 Dose: 180 mg Documented by: Enoxaparin Sodium (Enoxaparin 80 Mg/0.8 Ml Syr) 80 mg SQ Q12H [facility] Stop: 09/03/20 08:59 Last Admin: 08/05/20 08:49 Dose: 80 mg Documented by: Gabapentin (Gabapentin 300 Mg Cap) 300 mg PO HS [facility] Stop: 09/03/20 20:59 Last Admin: 08/04/20 20:56 Dose: 300 mg Documented by: Glucagon (Glucagon For Inj 1 Mg Vial) 1 mg SQ UD PRN; Protocol PRN Reason: Hypoglycemia Protocol Stop: 09/03/20 00:15 Glucose (Glucose 10 Tabs/Tube) 4 - 8 tabs PO UD PRN; Protocol PRN Reason: Hypoglycemia Protocol Stop: 09/03/20 00:15 Glucose (Glucose 40% Gel 15 Gm Tube) 15 - 30 gm PO UD PRN; Protocol PRN Reason: Hypoglycemia Protocol Stop: 09/03/20 00:15 Guaifenesin (Guaifenesin 600 Mg Tabcr) 1,200 mg PO Q12 [facility] Stop: 09/03/20 08:59 Last Admin: 08/05/20 08:46 Dose: 1,200 mg Documented by: Guaifenesin/Codeine Phosphate (Guaifenesin/Codeine 200mg/20mg 10ml Udc) 10 ml PO Q6H PRN PRN Reason: Cough Stop: 09/03/20 09:56 Last Admin: 08/05/20 12:29 Dose: 10 ml Documented by: Remdesivir 100 mg/ Sodium (Chloride) 250 mls @ 250 mls/hr IV Q24H [facility]; Protocol Stop: 08/08/20 12:59 Last Admin: 08/05/20 12:28 Dose: 250 mls/hr Documented by: Dexamethasone 6 mg/ Syringe 1.5 mls @ 1 mls/min IV DAILY [facility] Stop: 08/13/20 09:02 Last Admin: 08/05/20 08:48 Dose: 1 mls/min Documented by: Insulin Aspart (Insulin Aspart 100 Units/Ml 3 Ml Pen) 0 units SC ACHS [facility] Stop: 09/03/20 07:29 Last Admin: 08/05/20 12:30 Dose: 20 units Documented by: Insulin Glargine (Insulin Glargine Solostar 100 Units/Ml 3 Ml Pen) 5 units SQ HS [facility] Stop: 09/03/20 20:59 Last Admin: 08/04/20 21:38 Dose: 5 units Documented by: Insulin Glargine (Insulin Glargine Solostar 100 Units/Ml 3 Ml Pen) 40 units SQ QAM [facility] Stop: 09/03/20 08:59 Last Admin: 08/05/20 09:13 Dose: 40 units Documented by: Insulin Human NPH (Insulin Human Nph) 50 units SC QAM [facility] Stop: 09/03/20 08:59 Last Admin: 08/05/20 09:13 Dose: 50 units Documented by: Lidocaine (Lidocaine 5% 1 Patch) 1 patch TD DAILY [facility] Stop: 09/03/20 08:59 Last Admin: 08/05/20 08:48 Dose: 1 patch Documented by: Metoprolol Succinate (Metoprolol Succ 50mg Ext Rel Tab) 100 mg PO DAILY [facility] Stop: 09/03/20 08:59 Last Admin: 08/05/20 08:46 Dose: 100 mg Documented by: Miscellaneous (Carbohydrates For Hypoglycemia ) 15 - 30 gm PO UD PRN PRN Reason: Hypoglycemia Protocol Stop: 09/03/20 00:15 Miscellaneous (Remove Lidoderm Patch) 1 ea N/A DAILY@2100 [facility] Stop: 09/03/20 20:59 Last Admin: 08/04/20 20:55 Dose: 1 ea Documented by: Potassium Chloride (Potassium Chloride Crtab 20 Meq Tabcr) 20 meq PO TID [facility] Stop: 09/03/20 08:59 Last Admin: 08/05/20 08:47 Dose: 20 meq Documented by: Sodium Chloride (Sodium Chloride 0.9% 10ml Flush) 30 ml IV Q24H [facility] Stop: 08/08/20 13:01 Last Admin: 08/04/20 12:30 Dose: 30 ml Documented by: PG Care Time/CCT Total # of Minutes Spent Total Time Spent with Patient: Total time spent is greater than 50% in coordination of care (as documented) at patient's floor/unit and/or counseling patient: Coding Level of Care Code 09953 Subseq Hosp Care Lvl 3 Diagnoses COVID-19 U07.1 Elevated troponin R79.89 CKD (chronic kidney disease) N18.9 Chronic kidney disease stage: unspecified stage HTN (hypertension) I10 Hypertension type: essential hypertension Hyperlipidemia E78.5 Hyperlipidemia type: unspecified Chronic diastolic congestive heart failure I50.32 Type 2 diabetes mellitus E11.65; Z79.4 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 complication status: with hyperglycemia 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 Sleep apnea G47.30 Sleep apnea type: unspecified type Hypertrophic cardiomyopathy I42.2 Hypokalemia E87.6 (1) Sleep apnea Sleep apnea type: unspecified type Qualified Code(s): G47.30 - Sleep apnea, unspecified (2) Type 2 diabetes mellitus 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 complication status: with hyperglycemia 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
[2020-08-05] MEDS: GABAPENTIN 300 MG CAP PO SCH (21:15)
[2020-08-06 08:00] LABS: Hemoglobin 15.2 g/dL (14.0-18.0); Mean Corpuscular Hemoglobin 29.8 pg (25-34); Mean Corpuscular Hgb Conc 35.3 g/dL (32-36); Mean Corpuscular Volume 84.3 fL (80-100); Mean Platelet Volume 11.9 fL (7.4-10.4); Platelet Count 177 K/uL (130-400); RDW Coefficient of Variation 13.6 % (11.5-14.5); RDW Standard Deviation 41.8 fL (36.4-46.3); White Blood Count 4.93 K/uL (4.8-10.8)
[2020-08-06 08:20] LABS: BUN Creatinine Ratio 32.8 (10-20); Calcium 8.3 mg/dl (8.5-10.1); Creatinine Clr Calc Pharmacy 174.7 ml/min; Est GFR (African American) 121.2; Est GFR (Non-African American) 104.6; Potassium 4.1 mmol/L (3.5-5.1)
[2020-08-06] MEDS: INSULIN ASPART 100 UNITS/ML 3 ML PEN SC SCH ×2 (08:20→12:30)
[2020-08-06] MEDS: INSULIN GLARGINE SOLOSTAR 100 UNITS/ML 3 ML PEN SQ SCH (08:20)
--- NOTE | 2020-08-06 08:36 | XRay Report ---
XR chest 1V portable CLINICAL HISTORY: COVID pneumonia COMPARISON STUDY: 08/03/2020 FINDINGS: There are postsurgical changes of midline sternotomy. There is a left subclavian pacer/defi brillator present. There is no failure. There are no pleural effusions. There is no focal pulmonary c onsolidation.[ IMPRESSION: No active disease in the chest. ACT 112: Negative or not required by law. Electronically signed by: Eduardo Miranda M.D. 08/06/2020 8:35 AM
[2020-08-06] MEDS: ENOXAPARIN 80 MG/0.8 ML SYR SQ SCH (08:46)
[2020-08-06] MEDS: dilTIAZem HCL 180 MG CAPCR PO SCH (08:46)
[2020-08-06] MEDS: dexAMETHasone 6 MG in SYRINGE 0 ML IV SCH (08:46)
[2020-08-06] MEDS: ASPIRIN 81 MG ECTAB PO SCH (08:46)
[2020-08-06] MEDS: ATORVASTATIN 10 MG TAB PO SCH (08:47)
[2020-08-06] MEDS: METOPROLOL SUCC 50MG EXT REL TAB PO SCH (08:47)
[2020-08-06] MEDS: LIDOCAINE 5% 1 PATCH TD SCH (08:47)
[2020-08-06] MEDS: guaiFENesin 600 MG TABCR PO SCH (08:48)
[2020-08-06] MEDS ORDERED: INSULIN HUMAN NPH SC SCH (09:00)
--- NOTE | 2020-08-06 10:15 | Discharge Summary ---
Date of Service August 06, 2020 Admission HPI Per Admitting Provider Hollis Connolly is a 49yo C male with multiple medical comorbidities most notably HTN/HLP/DM/CHF, patient s/p MV repair, s/p myomectomy for hypertrophic cardiomyopathy, he has an AICD in place. Patient developed cough, fever, body aches acutely at 0200 on Saturday morning. He has had persistent symptoms - fever to 102, cough productive for pink-tinged sputum as well as body aches and diarrhea. Found to be positive for Covid-19 ER Course: No hypoxia noted Tylenol, Benzonatate, Toradol, Magnesium, NSS Principal Diagnosis COVID 19 infection Discharge Exam Constitutional well developed, + obese and comfortable; no acute distress Neck trachea midline, no thyromegaly + thick neck Respiratory normal respiratory effort, lungs clear to auscultation Cardiovascular RRR, no murmur, no edema Chest (Breasts) Chest: + pacemaker; + abnormal inspection of chest (midline scar) Gastrointestinal (Abdomen) normal bowel sounds, soft, nontender, no hepatosplenomegaly Musculoskeletal no cyanosis or clubbing, extremities motor strength 5/5 Skin no rashes, warm and dry Neurologic patellar DTR's 2+ bilat, sensation intact and PERRL, EOMI, accommodation nl, no face palsy, no dysarthria Psychiatric A+Ox3, euthymic affect Lymphatic no cervical or axillary lymphadenopathy Discharge Data Allergies Allergy/AdvReac Type Severity Reaction Status Date / Time erythromycin base Allergy Severe Anaphylaxis Verified 08/03/20 19:26 Consultations 08/03/20 21:06 ED Decision to Admit Stat Diabetes Follow up Diabetes Follow-up Needed for HgbA1c >9% Hospital Course (1) COVID-19: 49yo male presenting with Covid-19. Day 4 of illness. Symptoms include fever, body aches, diarrhea as well as cough and mild SOB. Labs significant for leukopenia with lymphopenia. Ai=304, mildly elevated AST and ALT at 84 and 97, respectively. His vital signs are stable and he has been >94% on room air. No supplemental oxygen required saturations dropped to 92% on room air on 08/04, changed to full admission treat with dexamethasone 6mg IV daily, Remdesivir IV got 4 days of treatment as inpatient, no hypoxia, can stop Remdesivir change to Decadron 6mg PO daily for 6 more days stay in isolation until 11 days from onset symptoms Codeine PRN for cough feeling well, ready to go home (2) CKD (chronic kidney disease): CKD stage II BUN and Cr are at baseline, making urine, K was low but corrected with replacement (3) HTN (hypertension): Blood pressure stable -Continue Diltiazem -Continue Metoprolol -Continue to monitor (4) Hyperlipidemia: Chronic. Stable -Continue Atorvastatin 10mg po qAM (5) Chronic diastolic congestive heart failure: Patient appears to be well compensated overall. He has not taken Lasix at home recently BNP normal -Monitor daily weights -Monitor I/Os -Continue Metoprolol continue Lasix as prescribed (6) Type 2 diabetes mellitus: Elevated blood sugar today. Patient typically on Januvia, Metformin as well as Lantus and Novolog Hb A1c elevated this morning at 9.8% paraeducator continue Lantus 40 units qAM and 5 units qPM Novolog SS increased NPH to 60 units, better control resume home regimen on discharge and will add NPH 60 units in the morning while on Decadron, 6 days (7) Sleep apnea: Chronic -CPAP qHS (8) Hypertrophic cardiomyopathy: Chronic. Stable. Patient is s/p myomectomy. Has AICD in place. He denies any discharges from device -Continue Metoprolol -Optimize electrolytes (9) Hypokalemia: resolved, up to 4.4 Total Time Total Time Spent Total Time Spent (In Minutes): 33 minutes Total Time Includes: Examination of the Patient, Discharge Planning and Medication Reconciliation Discharge Plan Discharge Items Patient Disposition: Home - Self-Care Reason For Visit: COVID-19 INFECTION, ELEVATED TROPONIN Discharge Diagnosis: COVID 19 infection Condition on Discharge: Good Goals: complete course of dexamethasone stay well nourished, well hydrated, get rest stay in quarantine until 08/13/20, say off work until that time as well use NPH insulin to help prevent hyperglycemia while on dexamethasone Activity: Per Instructions section Bathing: No limitations Exercise/Sports: Gradually increase as tolerated Driving/Machine Use: No limitations Weightbearing: Full weightbearing Non-emergency contact: Primary Care Provider Call non-emergency contact if: you have any medication questions and your symptoms worsen Follow-up/Referrals: Alfred Davis [Primary Care Provider] - (one week) Diet: Carb Consistent or DM2 and Heart Healthy Addtl Attending Provider Instructions: Medications: - DEXAMETHASONE: 6mg every morning for 5 more days - NPH INSULIN: 60 units every morning with the dexamethasone for 5 days - CODEINE: take as needed for cough COVID 19 infection, saturations below 94% chest x-ray is clear, no signs of pneumonia and lungs clear on exam you dropped below 94% on room air earlier in stay so treatment with dexamethasone and Remdesivir was initiated continue dexamethasone on discharge for 5 more days stay well hydrated, well nourished, get plenty of rest need to stay in isolation until 08/13 since your symptoms first started on 08/02 use Codeine as needed for cough Pending Studies at Discharge: No Stand-Alone Forms: My [facility], Work/School Release (Inpt), Smoking Cessation Medications and DC Order Prescriptions: New Novolin N NPH U-100 Insulin 100 unit/mL Suspension 60 unit SC QAM 5 Days Qty: 3 RF: 0 codeine-guaifenesin 10-100 mg/5 mL Liquid 10 ml PO Q6H PRN (Reason: cough) Qty: 120 RF: 1 dexamethasone 4 mg tablet 6 mg PO DAILY 5 Days Qty: 8 RF: 0 Continued hydrocodone-acetaminophen 5-325 mg tablet 1 tab PO DAILY PRN (Reason: Pain) RF: 0 atorvastatin 10 mg tablet 10 mg PO QAM RF: 0 aspirin 81 mg Tablet,Delayed Release (Dr/Ec) 81 mg PO QAM RF: 0 potassium chloride 20 mEq Tablet Extended Release 20 meq PO QAM PRN (Reason: when taking lasix) RF: 0 metoprolol succinate 100 mg tablet extended release 24 hr 100 mg PO DAILY RF: 0 metformin 1,000 mg tablet 1,000 mg PO BID RF: 0 diltiazem HCl [Cartia XT] 180 mg capsule,extended release 24hr 180 mg PO QAM RF: 0 Lantus Solostar U-100 Insulin 100 unit/mL (3 mL) insulin pen 40 unit subcut QAM RF: 0 Januvia 100 mg tablet 100 mg PO QAM RF: 0 insulin aspart U-100 [Novolog Flexpen U-100 Insulin] 100 unit/mL (3 mL) insulin pen 6 - 14 unit SUBCUT TID RF: 0 insulin aspart U-100 [Novolog Flexpen U-100 Insulin] 100 unit/mL (3 mL) insulin pen 5 unit SUBCUT HS RF: 0 furosemide 80 mg tablet 80 mg PO BID17 PRN (Reason: Fluid Retention) RF: 0 Lantus Solostar U-100 Insulin 100 unit/mL (3 mL) Insulin Pen 5 units subcut HS RF: 0 lidocaine 5 % adhesive patch,medicated 1 patch topical DAILY RF: 0 gabapentin 300 mg capsule 300 mg PO HS RF: 0 Discharge Orders: Discharge Order (Routine); Ordered 08/06/20 Ordered By: Derrell Rizzo Admission Data Admit Date/Time: 08/04/20 08:28 Attending Provider: Derrell Rizzo Admit Provider: Alee Carrillo Primary Care Provider: Alfred Davis Other Providers: Alee Carrillo Other Interventions: Discharge Summary Assessment (RN) Last Done: 08/06/20 10:46 Coding Level of Care Code D/C Day Management >30 mins Diagnoses COVID-19 U07.1 CKD (chronic kidney disease) N18.9 Chronic kidney disease stage: unspecified stage HTN (hypertension) I10 Hypertension type: essential hypertension Hyperlipidemia E78.5 Hyperlipidemia type: unspecified Chronic diastolic congestive heart failure I50.32 Type 2 diabetes mellitus E11.65; Z79.4 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 complication status: with hyperglycemia 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
[2020-08-06] MEDS: REMDESIVIR 100 MG in SODIUM CHLORIDE 0.9% 230 ML IV SCH (12:36)
[2020-08-06] MEDS: SODIUM CHLORIDE 0.9% 10ML FLUSH IV SCH (13:51)
--- NOTE | 2020-08-15 08:07 | Coding Query ---
BMI To promote full compliance with coding requirements relating to patient care, physician participation is requested in all cases of financial retirement plan specialist uncertainty. Please assist us with the question(s) below: Please place an X within the parenthesis (x). If other, please document: BMI 43 was documented in this record for this patient. If the BMI is significant, please check the box that provides a more specific associated diagnosis: ( ) Overweight/Obese ( ) Obesity ( x) Morbid obesity ( ) Obesity Hypoventilation Syndrome (OHS) ( ) Heathy weight, not significant ( ) Underweight/Thin ( ) Other, please specify Thank you Beth ARGUELLO
== END 2020-08-06 14:27 | disposition home or self-care (01) | DRG 178 ==
LOC: ED 18:16 → 2S 18:16 → SUATTDRO 22:51 → 2S 23:49

== ENCOUNTER 2022-01-22 03:49 | Inpatient (IN) ==
[2022-01-22 04:27] LABS: Basophils # (auto) 0.07 K/uL (0-0.2); Basophils % (auto) 1.3 %; Eosinophils # (auto) 0.16 K/uL (0-0.50); Eosinophils % (auto) 2.9 %; Hematocrit (blood only) 42.6 % (40.1-51.0); Hemoglobin 15.7 g/dl (14.0-18.0); Immature Granulocytes # (auto) 0.03 K/uL (0.00-0.02); Immature Granulocytes % (auto) 0.5 %; Lymphocytes # (auto) 1.74 K/uL (1.2-3.4); Lymphocytes % (auto) 31.3 %; Mean Corpuscular Hemoglobin 29.9 pg (25.0-34.0); Mean Corpuscular Hgb Conc 36.9 g/dL (32.0-36.0); Mean Corpuscular Volume 81.1 fL (80.0-100.0); Mean Platelet Volume 11.4 fL (9.4-12.4); Monocytes # (auto) 0.55 K/uL (0.24-0.82); Monocytes % (auto) 9.9 %; Neutrophils # (auto) 3.01 K/uL (1.4-6.5); Neutrophils % (auto) 54.1 %; Platelet Count 189 K/uL (130-400); RDW Coefficient of Variation 12.4 % (11.5-14.5); RDW Standard Deviation 36.5 fL (36.4-46.3); Red Blood Count 5.25 M/uL (4.63-6.08); White Blood Count 5.56 K/ul (4.8-10.8)
[2022-01-22 04:39] LABS: Partial Thromboplastin Time 27.7 Seconds (21.0-31.0); Prothrombin Time 10.6 Seconds (9.0-12.0)
[2022-01-22 04:51] LABS: Albumin Globulin Ratio 1.8 (0.9-2); BUN Creatinine Ratio 20.9 (10-20); Bilirubin,Total 0.4 mg/dl (0.2-1.0); Calcium 9.3 mg/dl (8.5-10.1); Creatinine Clr Calc Pharmacy 156.7 ml/min; Est GFR (African American) 117.2 ml/min; Est GFR (Non-African American) 101.1 ml/min; Globulin 2.2 gm/dl (2.5-4.0); Potassium 3.9 mmol/L (3.5-5.1); Total Protein 6.2 gm/dl (6.0-8.3)
[2022-01-22 05:04] LABS: Troponin I High Sensitivity 83.3 pg/ml (0-20)
[2022-01-22] MEDS ORDERED: NITROGLYCERIN 2% OINTMENT 30GM TUBE EXT ONE (05:34)
[2022-01-22] MEDS ORDERED: NITROGLYCERIN SL 0.4 MG/TAB TAB SL STA (05:34)
[2022-01-22] MEDS ORDERED: NITROGLYCERIN SL 0.4 MG/TAB TAB ONE (05:35)
[2022-01-22] MEDS ORDERED: Heparin IV Adult Wt-Based Standard WITH Bolus Protocol IV STA (05:39)
[2022-01-22] MEDS ORDERED: HEPARIN SOD (PORCINE) 1000 UNIT/ML IV ONE (05:54)
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
[2022-01-22] MEDS: HEPARIN SODIUM/DEXTROSE 25,000 UNITS/500 ML BAG IV SCH ×2 (06:24→18:58)
[2022-01-22] MEDS ORDERED: GLUCOSE 10 TAB/TUBE PO PRN (08:32)
[2022-01-22] MEDS ORDERED: DEXTROSE 50% 50 ML SYRINGE IV PRN (08:32)
[2022-01-22] MEDS ORDERED: ONDANSETRON INJ 2 MG/ML 2 ML VIAL IV PRN (08:32)
[2022-01-22] MEDS ORDERED: CARBOHYDRATES FOR HYPOGLYCEMIA PO PRN (08:32)
[2022-01-22] MEDS ORDERED: GLUCAGON FOR INJ 1 MG VIAL SQ PRN (08:32)
[2022-01-22] MEDS ORDERED: GLUCOSE 40% GEL 15 GM TUBE PO PRN (08:32)
[2022-01-22] MEDS ORDERED: ACETAMINOPHEN 325 MG TAB PO PRN (08:32)
[2022-01-22] MEDS ORDERED: MoRPHine SULFATE 2 MG/ML CARP IV PRN (08:32)
[2022-01-22] MEDS: LANTUS PER UNIT CHARGE SQ SCH ×2 (09:27→20:38)
[2022-01-22] MEDS: INSULIN ASPART PER UNIT SC SCH ×4 (09:28→20:38)
--- NOTE | 2022-01-22 09:38 | XRay Report ---
XR chest 1V portable HISTORY: Midsternal Chest Pain COMPARISON: Chest 02/08/2021. FINDINGS: No pneumothorax. No pleural effusions. The heart remains mildly enlarged. Left-sided pacema ker/defibrillator and poststernotomy changes are again noted. No new focal lung consolidations to sug gest pneumonia. No evidence for pulmonary edema. IMPRESSION: Stable mild cardiac megaly. Otherwise, no acute process within the chest. ACT 112: Negative or not required by law. Electronically signed by: Eliazar Pinto M.D. 01/22/2022 9:36 AM
[2022-01-22] MEDS: METOPROLOL SUCC 50MG EXT REL TAB PO SCH (10:09)
[2022-01-22] MEDS: dilTIAZem HCL 180 MG CAPCR PO SCH (10:09)
[2022-01-22] MEDS: ATORVASTATIN 40 MG TAB PO SCH (10:10)
[2022-01-22] MEDS: ASPIRIN 81 MG ECTAB PO SCH (10:10)
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
[2022-01-22] MEDS: NITROGLYCERIN 2% OINTMENT 30GM TUBE EXT SCH ×2 (11:54→17:02)
[2022-01-22 13:18] LABS: Partial Thromboplastin Ratio 3.5
--- NOTE | 2022-01-22 13:18 | Electrocardiogram Report ---
Test Reason : Blood Pressure : / mmHG Vent. Rate : 085 BPM Atrial Rate : 085 BPM P-R Int : 186 ms QRS Dur : 176 ms QT Int : 464 ms P-R-T Axes : -04 -81 091 degrees QTc Int : 552 ms Atrial-sensed ventricular-paced rhythm Abnormal ECG When compared with ECG of 08-FEB-2021 10:18, Vent. rate has decreased BY 9 BPM Confirmed by Stephen Medrano ([id number]) on 01/22/2022 1:17:49 PM Referred By: REFERRED SELF Confirmed By:Stephen Medrano
--- NOTE | 2022-01-22 13:22 | Electrocardiogram Report ---
Test Reason : Blood Pressure : / mmHG Vent. Rate : 076 BPM Atrial Rate : 076 BPM P-R Int : 178 ms QRS Dur : 184 ms QT Int : 490 ms P-R-T Axes : -13 -77 100 degrees QTc Int : 551 ms Atrial-sensed ventricular-paced rhythm Abnormal ECG When compared with ECG of 22-JAN-2022 03:55, (unconfirmed) Vent. rate has decreased BY 9 BPM Confirmed by Stephen Medrano ([id number]) on 01/22/2022 1:21:43 PM Referred By: REFERRED SELF Confirmed By:Stephen Medrano
[2022-01-22 13:36] LABS: Chol HDL Ratio 5.8 (0-5)
[2022-01-22 14:03] LABS: Partial Thromboplastin Time 97.6 Seconds (21.0-31.0)
--- NOTE | 2022-01-22 15:31 | Medical Student Progress Note ---
Date of Service January 22, 2022 Assessment & Plan (1) Non-ST elevation [place] (NSTEMI): Plan: Cardiology consulted, will send patient to filling station laborer tomorrow. Continue to recheck troponin levels. Continue heparin drip and monitor PTT. (2) Type 2 diabetes mellitus: Plan: Continue Lantus 5 units daily. Hold off on home medications. 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 Code: Full code. DVT prophylaxis: ongoing heparin drip. Disposition: patient is to remain in hospital overnight for telemetry and awaiting filling station laborer study. Admission and Anticipated Discharge Date Admission Date: January 22, 2022 Romeo Connolly is a 51 year old male patient with a past medical history of cardiomyopathy and HFpEF s/p myectomy, biventricular ICD placement, and mitral valve repair who presented to the ED for acute onset chest pain and mild shortness of breath. The patient described the pain as stabbing and radiated straight through to his back. The patient denies pain radiating into shoulder or jaw. The patient states this pain was different from the past when his cardiac etiologies would present with only jaw pain. The patient does not state anything made his symptoms better or worse. He reports experiencing bilateral leg cramps in conjunction with his chest pain. The patient was given sublingual nitroglycerin and aspirin by EMS. The patient was hypertensive, 160/84, and mildly hypoglycemic, 203, upon arrival to the ED. The patient's EKG was unremarkable compared to previous studies. The patient was started on a heparin drip and was given a nitroglycerin patch in the ED. There were no significant overnight events. Today the patient states he is feeling better. He denies chest pain and shortness of breath. Review of Systems Constitutional: No fever, no chills, no fatigue. Respiratory: No SOB, no cough, no wheezing. Cardiovascular: Additional Comments: No chest pain, no palpitations. Gastrointestinal: No abdominal pain, no nausea, no vomiting, no constipation, no diarrhea. Physical Exam Constitutional: Alert and oriented, no acute distress. Respiratory: Lungs clear to auscultation. Breath sounds equal bilaterally. No wheezes, rales, or rhonchi. Cardiovascular: Regular rate and rhythm. No murmurs, rubs, or gallops. Bowel sounds appreciated over tricuspid valve. Chest wall non-tender to palpation. Capillary refill <2 seconds. No JVD, no bruits. Mild non-pitting peripheral edema bilaterally in lower extremities. Gastrointestinal (Abdomen): Bowel sounds normal. Abdomen soft, nontender. nondistended. No guarding or rebound. No hepatosplenomegaly. Results & Data ([facility]) Vital Signs (Past 12 Hours) Vital Signs Temp Pulse Pulse Resp BP BP Pulse Ox 01/22/22 11:49 36.5 C 76 18 133/76 96 01/22/22 09:30 36.6 C 91 H 18 151/87 H 95 01/22/22 07:30 81 20 97 01/22/22 07:30 125/84 01/22/22 07:15 79 18 97 01/22/22 07:15 118/75 01/22/22 07:00 77 17 01/22/22 06:50 77 18 01/22/22 06:45 138/90 01/22/22 06:45 76 20 01/22/22 06:40 78 18 01/22/22 06:30 76 19 01/22/22 06:30 130/83 01/22/22 06:20 76 15 01/22/22 06:15 139/83 01/22/22 06:15 76 31 H 01/22/22 06:10 77 15 01/22/22 06:00 75 19 01/22/22 06:00 141/80 H 01/22/22 05:50 80 16 01/22/22 05:45 82 16 01/22/22 05:45 128/78 01/22/22 05:40 78 23 96 01/22/22 05:38 138/87 01/22/22 05:38 75 19 98 01/22/22 05:30 74 20 01/22/22 05:30 152/81 H 01/22/22 05:20 75 19 96 01/22/22 05:10 77 19 96 01/22/22 05:00 77 21 01/22/22 05:00 155/83 H 01/22/22 04:50 84 15 97 01/22/22 04:40 78 22 95 01/22/22 04:30 81 14 96 01/22/22 04:30 160/84 H 01/22/22 04:21 80 21 95 01/22/22 04:08 78 16 95 01/22/22 03:56 36.5 C 78 16 160/84 H 95 01/22/22 03:56 01/22/22 04:02 36.6 C 83 20 162/85 H 96 O2 Del Method 01/22/22 11:49 Room Air 01/22/22 09:30 Room Air 01/22/22 07:30 Room Air 01/22/22 07:30 01/22/22 07:15 Room Air 01/22/22 07:15 01/22/22 07:00 01/22/22 06:50 01/22/22 06:45 01/22/22 06:45 01/22/22 06:40 01/22/22 06:30 01/22/22 06:30 01/22/22 06:20 01/22/22 06:15 01/22/22 06:15 01/22/22 06:10 01/22/22 06:00 01/22/22 06:00 01/22/22 05:50 01/22/22 05:45 01/22/22 05:45 01/22/22 05:40 01/22/22 05:38 01/22/22 05:38 01/22/22 05:30 01/22/22 05:30 01/22/22 05:20 01/22/22 05:10 01/22/22 05:00 01/22/22 05:00 01/22/22 04:50 01/22/22 04:40 01/22/22 04:30 01/22/22 04:30 01/22/22 04:21 01/22/22 04:08 Room Air 01/22/22 03:56 Room Air 01/22/22 03:56 Room Air 01/22/22 04:02 Room Air Laboratory Results Cardiac Enzymes 01/22/22 01/22/22 01/22/22 Range/Units 04:09 06:31 10:02 AST 23 (13-39) U/L Troponin I High Sens 83.3 H* 84.5 H* 60.9 H* D (0-20) pg/ml Coagulation 01/22/22 01/22/22 Range/Units 04:09 12:27 PT 10.6 (9.0-12.0) Seconds APTT 27.7 97.6 H* (21.0-31.0) Seconds Lipids 01/22/22 Range/Units 04:09 Triglycerides 183 H (0-150) mg/dl Cholesterol 215 H (0-200) mg/dl HDL Cholesterol 37 mg/dl Cholesterol/HDL Ratio 5.8 H (0-5) CBC 01/22/22 Range/Units 04:09 WBC 5.56 (4.8-10.8) K/ul RBC 5.25 (4.63-6.08) M/uL Hgb 15.7 (14.0-18.0) g/dl Hct 42.6 (40.1-51.0) % Plt Count 189 (130-400) K/uL Neut # (Auto) 3.01 (1.4-6.5) K/uL Lymph # (Auto) 1.74 (1.2-3.4) K/uL Lee # (Auto) 0.55 (0.24-0.82) K/uL Eos # (Auto) 0.16 (0-0.50) K/uL Baso # (Auto) 0.07 (0-0.2) K/uL Comprehensive Metabolic Panel 01/22/22 Range/Units 04:09 Sodium 137 (136-145) mmol/L Potassium 3.9 (3.5-5.1) mmol/L Chloride 104 (98-107) mmol/L Carbon Dioxide 25 (21-32) mmol/L BUN 18 (6-23) mg/dl Creatinine 0.86 (0.6-1.4) mg/dl Glucose 203 H (70-99(Fasting)) mg/dl Calcium 9.3 (8.5-10.1) mg/dl AST 23 (13-39) U/L ALT 34 (7-52) U/L Alkaline Phosphatase 82 (34-104) U/L Total Protein 6.2 (6.0-8.3) gm/dl Albumin 4.0 (3.4-5.0) gm/dl Intake and Output 01/22/22 01/22/22 01/22/22 06:59 14:59 22:59 Other: Weight 142.8 kg 142.8 kg Weight Measurement Method Built in [facility] Built in [facility] Patient Weight 01/23/22 06:59 Weight 142.8 kg Diagnostic Findings Chest X-Ray 01/22/22 04:08 XR chest 1V portable HISTORY: Midsternal Chest Pain COMPARISON: Chest 02/08/2021. FINDINGS: No pneumothorax. No pleural effusions. The heart remains mildly enlarged. Left-sided pacemaker/defibrillator and poststernotomy changes are again noted. No new focal lung consolidations to suggest pneumonia. No evidence for pulmonary edema. IMPRESSION: Stable mild cardiac megaly. Otherwise, no acute process within the chest. ACT 112: Negative or not required by law. Electronically signed by: Eliazar Pinto M.D. 01/22/2022 9:36 AM
--- NOTE | 2022-01-22 18:00 | Hospitalist Progress Note ---
Date of Service January 22, 2022 Assessment & Plan (1) Left-sided chest pain: Plan: This is a 51-year-old male with a history of hypertrophic cardiomyopathy s/p myectomy, HFpEF status post biventricular ICD placement, hypertension, hyperlipidemia, s/p mitral valve repair, T2DM, MEENU admitted to the hospital for evaluation of chest pain relieved by nitroglycerin and associated with a mild bump in hsTrp, concerning for NSTEMI. Chest Pain / Concern for NSTEMI -Substernal chest pain relieved with nitroglycerin x2 episodes. Primary concern at this time is ACS. -Troponin 83.3 on admission, peaked at 84.5. -Echo 01/22/22: Severe LVH, EF 55-60%, RV not well seen but appears dilated. -Started on heparin drip on admission, ASA daily, atorvastatin increased to 40mg daily, continuing home metoprolol, nitro paste and morphine PRN for chest pain. -Consulted cardiology: -suspect raised trop secondary to hypertensive urgency and underlying LVH. -Given last cath 2017 and his risk factors will proceed with coronary catheterization tomorrow morning. -Further recs dependent on results. -Patient scheduled for cardiac sugar laboratory assistant tomorrow AM, NPO after midnight. -Continue to monitor for symptoms. Severe Hypertrophic cardiomyopathy status post Myectomy -Follows with [facility] cardiology; has been well controlled on metoprolol and diltiazem -No evidence of complications noted on TTE 08/2020 -ICD in place HTN: -Continue home metoprolol and diltiazem -Per cardiology consider ACEI/ARB for cardioprotective and renal protective effects. Type 2 diabetes -Continue Lantus 5 units daily, hold other home medications -SSI. -A1c 11.6, increased from previous of 9.6. Hyperlipidemia -Cholesterol 215, triglycerides 183, HDL 37. -Increase atorvastatin from 10 mg to 40 mg. Status post mitral valve repair -History noted; no significant changes on recent echo. HFpEF -No reported recent symptoms; uses Lasix as needed for fluid gain, though has not required in months -Cardiac, T2DM diet. -Biventricular ICD and placed, previously placed for primary prevention in setting of reduced systolic function -Echo 01/22/22 as above, EF 55-60%. Code: Full code Disposition: PCU Diet: Cardiac, T2DM; NPO after midnight for cath tomorrow. Prophylaxis: Heparin drip (2) Hypertrophic cardiomyopathy: (3) Biventricular ICD (implantable cardioverter-defibrillator) in place: (4) Type 2 diabetes mellitus: (5) Hyperlipidemia: (6) HTN (hypertension): Plan: Noted. Continue metoprolol and diltiazem. (7) Chronic diastolic congestive heart failure: Admission and Anticipated Discharge Date Admission Date: January 22, 2022 Supervising Physician Co-Signing Physician Notes Resident Physician Supervision Note: I independently interviewed and examined the patient and verified the ramirez history and physical, reviewed labs and image studies and agree with resident findings and care plan. Subjective Patient seen at the bedside this morning saying his chest pain is about a 3-4/10 and under more control. He said he has a headache but no shortness of breath that is noticeably different from baseline. Denies nausea, current diaphoresis, fevers, chills. Review of Systems Review of Systems: as per HPI Physical Exam Constitutional: WD/WN, vitals as above Eyes: PERRL, conjunctivae normal, anicteric sclerae Respiratory: normal respiratory effort, lungs clear to auscultation Cardiovascular: Rate/Rhythm: regular rate and regular rhythm Heart Sounds: normal S1 and normal S2 Legs appear mildly swollen however no pitting edema. Gastrointestinal (Abdomen): normal bowel sounds, soft, nontender, no hepatosplenomegaly Skin: no rashes, warm and dry Psychiatric: A+Ox3, euthymic affect Results & Data Results & Data ([facility]) Vital Signs (Past 12 Hours) Vital Signs Temp Pulse Pulse Resp BP BP Pulse Ox 01/22/22 16:29 36.6 C 60 18 128/74 94 01/22/22 15:29 66 01/22/22 11:49 36.5 C 76 18 133/76 96 01/22/22 09:30 36.6 C 91 H 18 151/87 H 95 01/22/22 07:30 81 20 97 01/22/22 07:30 125/84 01/22/22 07:15 79 18 97 01/22/22 07:15 118/75 01/22/22 07:00 77 17 01/22/22 06:50 77 18 01/22/22 06:45 138/90 01/22/22 06:45 76 20 01/22/22 06:40 78 18 01/22/22 06:30 76 19 01/22/22 06:30 130/83 01/22/22 06:20 76 15 01/22/22 06:15 139/83 01/22/22 06:15 76 31 H 01/22/22 06:10 77 15 01/22/22 06:00 75 19 01/22/22 06:00 141/80 H O2 Del Method 01/22/22 16:29 Room Air 01/22/22 15:29 01/22/22 11:49 Room Air 01/22/22 09:30 Room Air 01/22/22 07:30 Room Air 01/22/22 07:30 01/22/22 07:15 Room Air 01/22/22 07:15 01/22/22 07:00 01/22/22 06:50 01/22/22 06:45 01/22/22 06:45 01/22/22 06:40 01/22/22 06:30 01/22/22 06:30 01/22/22 06:20 01/22/22 06:15 01/22/22 06:15 01/22/22 06:10 01/22/22 06:00 01/22/22 06:00 Resident Activity Tracking Resident Involvement: Resident Care Provided Care Provided: Adult Hospital Medicine (1) Type 2 diabetes mellitus 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 complication status: with hyperglycemia 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 keno terminal operator insulin use: with keno terminal operator use Qualified Code(s): E11.65 - Type 2 diabetes mellitus with hyperglycemia; Z79.4 - detention (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 (2) Hyperlipidemia Hyperlipidemia type: unspecified Qualified Code(s): E78.5 - Hyperlipidemia, unspecified (3) HTN (hypertension) Hypertension type: unspecified Qualified Code(s): I10 - Essential (primary) hypertension
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
[2022-01-22] MEDS: GABAPENTIN 300 MG CAP PO SCH (20:39)
[2022-01-22] MEDS: HYDROCODONE/ACETAMOPHEN 5/325MG TAB PO PRN (22:02)
[2022-01-22 22:19] LABS: Partial Thromboplastin Time 55.9 Seconds (21.0-31.0)
[2022-01-23] MEDS: NITROGLYCERIN 2% OINTMENT 30GM TUBE EXT SCH ×5 (01:01→23:42)
[2022-01-23 06:12] LABS: Basophils # (auto) 0.06 K/uL (0-0.2); Basophils % (auto) 1.1 %; Eosinophils # (auto) 0.16 K/uL (0-0.50); Eosinophils % (auto) 2.9 %; Hematocrit (blood only) 42.6 % (40.1-51.0); Hemoglobin 14.9 g/dl (14.0-18.0); Immature Granulocytes # (auto) 0.04 K/uL (0.00-0.02); Immature Granulocytes % (auto) 0.7 %; Lymphocytes # (auto) 1.98 K/uL (1.2-3.4); Lymphocytes % (auto) 36.1 %; Mean Corpuscular Hemoglobin 29.5 pg (25.0-34.0); Mean Corpuscular Volume 84.4 fL (80.0-100.0); Mean Platelet Volume 11.4 fL (9.4-12.4); Monocytes # (auto) 0.41 K/uL (0.24-0.82); Monocytes % (auto) 7.5 %; Neutrophils # (auto) 2.83 K/uL (1.4-6.5); Neutrophils % (auto) 51.7 %; Platelet Count 168 K/uL (130-400); RDW Coefficient of Variation 12.7 % (11.5-14.5); RDW Standard Deviation 38.3 fL (36.4-46.3); Red Blood Count 5.05 M/uL (4.63-6.08); White Blood Count 5.48 K/ul (4.8-10.8)
[2022-01-23 06:35] LABS: Albumin Globulin Ratio 1.5 (0.9-2); Albumin Level 3.7 gm/dl (3.4-5.0); BUN Creatinine Ratio 16.5 (10-20); Bilirubin,Total 0.6 mg/dl (0.2-1.0); Calcium 8.9 mg/dl (8.5-10.1); Creatinine Clr Calc Pharmacy 138.2 ml/min; Est GFR (African American) 105.1 ml/min; Est GFR (Non-African American) 90.7 ml/min; Globulin 2.4 gm/dl (2.5-4.0); Magnesium 1.8 mg/dl (1.7-2.4); Total Protein 6.1 gm/dl (6.0-8.3)
[2022-01-23 06:42] LABS: INR 1.1 (0.9-1.1); Partial Thromboplastin Ratio 2.4; Prothrombin Time 11.3 Seconds (9.0-12.0)
[2022-01-23] MEDS ORDERED: LIDOCAINE 1% LOCAL 20 ML VIAL ONE (07:00)
[2022-01-23] MEDS: LANTUS PER UNIT CHARGE SQ SCH ×2 (07:41→21:05)
[2022-01-23] MEDS: INSULIN ASPART PER UNIT SC SCH ×4 (07:41→21:05)
[2022-01-23 07:45] LABS: Estimated Average Glucose 252 mg/dl; Hemoglobin A1C 10.4 % (4.5-5.6)
[2022-01-23] MEDS: dilTIAZem HCL 180 MG CAPCR PO SCH (08:38)
[2022-01-23] MEDS: ASPIRIN 81 MG ECTAB PO SCH (08:38)
[2022-01-23] MEDS: ATORVASTATIN 40 MG TAB PO SCH (08:38)
[2022-01-23] MEDS: METOPROLOL SUCC 50MG EXT REL TAB PO SCH (08:39)
[2022-01-23] MEDS ORDERED: LANTUS PER UNIT CHARGE SQ SCH (09:00)
[2022-01-23] MEDS: HEPARIN SODIUM/DEXTROSE 25,000 UNITS/500 ML BAG IV SCH (09:16)
[2022-01-23] MEDS ORDERED: HEPARIN (PORCINE) 1000 UNIT/ML 10 ML (CATH LAB USE ONLY) ONE (09:36)
[2022-01-23] MEDS ORDERED: fentaNYL citrate 100 MCG/2 ML VIAL ONE (09:36)
[2022-01-23] MEDS ORDERED: MIDAZOLAM HCL 1 MG/ML 2ML VIAL ONE (09:36)
[2022-01-23] MEDS ORDERED: niCARdipine HCL INJ 2.5 MG/ML 10 ML AMP ONE (09:36)
[2022-01-23] MEDS ORDERED: NITROGLYCERIN/D5W 100MCG/ML 20ML SYR ONE (09:36)
--- NOTE | 2022-01-23 09:39 | Pre Anesthesia Assessment ---
Date of Service January 23, 2022 Pre Sedation Assessment Vital Signs Temp Pulse Pulse Pulse Resp BP BP 01/23/22 09:30 61 18 128/81 01/23/22 07:05 59 L 16 01/23/22 07:13 36.4 C L 70 18 116/83 01/23/22 03:31 61 15 01/23/22 03:43 36.3 C L 60 18 123/81 01/22/22 23:30 65 19 01/22/22 22:40 36.8 C 65 18 153/83 H 01/22/22 19:34 62 01/22/22 19:06 36.7 C 62 18 130/73 01/22/22 16:29 36.6 C 60 18 128/74 01/22/22 15:29 66 01/22/22 11:49 36.5 C 76 18 133/76 Pulse Ox O2 Del Method FiO2 01/23/22 09:30 95 Room Air 01/23/22 07:05 96 21 01/23/22 07:13 97 CPAP 01/23/22 03:31 92 21 01/23/22 03:43 96 CPAP 01/22/22 23:30 96 21 01/22/22 22:40 96 Room Air 01/22/22 19:34 01/22/22 19:06 96 Room Air 01/22/22 16:29 94 Room Air 01/22/22 15:29 01/22/22 11:49 96 Room Air Cardiovascular RRR, no murmur, no edema Respiratory normal respiratory effort, lungs clear to auscultation Pre-Sedation Airway Assessment Smoking Status: Former smoker Short, Thick Neck: No Thyromental Distance: > or= 3.5 Finger Breadths Oral Cavity: + WNL Mallampati Class: III ASA: ASA3 NPO Status Date of Last Intake of Fluids: 01/23/22 Time of Last Intake of Fluids: 08:00 Date of Last Intake of Solid Food: 01/22/22 Time of Last Intake of Solid Foods: 22:00 Notes The planned sedation has been discussed with the patient. Informed Consent was obtained. I have identified the patient, determined the appropriateness of sedation and have assessed the patient immediately prior to the procedure. All medicine(s) and interventions are by my order.
--- NOTE | 2022-01-23 10:33 | Post Anesthesia Assessment ---
Date of Service January 23, 2022 Post Sedation Assessment Vital Signs Temp Pulse Pulse Pulse Resp BP BP 01/23/22 10:15 92 H 18 113/72 01/23/22 09:30 61 18 128/81 01/23/22 07:05 59 L 16 01/23/22 07:13 36.4 C L 70 18 116/83 01/23/22 03:31 61 15 01/23/22 03:43 36.3 C L 60 18 123/81 01/22/22 23:30 65 19 01/22/22 22:40 36.8 C 65 18 153/83 H 01/22/22 19:34 62 01/22/22 19:06 36.7 C 62 18 130/73 01/22/22 16:29 36.6 C 60 18 128/74 01/22/22 15:29 66 01/22/22 11:49 36.5 C 76 18 133/76 Pulse Ox O2 Del Method FiO2 01/23/22 10:15 93 Room Air 01/23/22 09:30 95 Room Air 01/23/22 07:05 96 21 01/23/22 07:13 97 CPAP 01/23/22 03:31 92 21 01/23/22 03:43 96 CPAP 01/22/22 23:30 96 21 01/22/22 22:40 96 Room Air 01/22/22 19:34 01/22/22 19:06 96 Room Air 01/22/22 16:29 94 Room Air 01/22/22 15:29 01/22/22 11:49 96 Room Air Recovery Score Activity: Moves 4 extremities Respiration: Deep Breath/Cough Circulation: +/-20% PreAnes Value Consciousness: Fully Awake Oxygen Saturation: > 92% On Room Air Post Anesthesia Score: 10 Discharge Sedation Level of Care: Phase I Post Sedation Plan On clinical assessment, the patient appears to have tolerated the sedation without complications. Patient is recovering as anticipated. Patient will continue to be monitored by nursing and may be discharged when sedation discharge criteria are met per below protocol. Upon Completions of procedure up to 15 minutes continue every 5 minute vital signs and the P.A.R. score; then discharge to a Phase I or Fast Track to Phase II per the following guidelines: * Discharge Patient to appropriate Phase II area if PAR is 8 or greater or return to pre- procedure baseline. The post - procedure orders will be as directed. * If PAR score is less than 8 or not return to pre-procedure baseline then patient will follow Phase I monitoring till PAR is reached for Phase II. The Phase I may be done in procedure room or may call to secure a Phase I area. * If naloxone or flumazenil are used for reversal, hold in Phase I for continued monitoring from when last reversal dose was given for a minimum of 60 minutes or longer pending the nurse and/or physician discretion of patient condition before discharge to Phase II. Please call the Sedation Physician to re-evaluate and complete post-note for discharge to Phase II area. Do NOT discharge from procedure sedation or Phase 1 until post- sedation evaluation note is complete by procedure /sedation MD Sedation Discharge Instructions to be given to the patient at discharge to home. [facility] Procedure Codes (Charges) Indication for Procedure Indication for procedure: NSTEMI Sedation/Anesthesia Procedure 1: Sedation/Anesthesia: 29606 Mod Sedation by the same physician;Init15 Min Child Age 5 & Up
--- NOTE | 2022-01-23 10:35 | Cardiac Catheterization ---
ACC Data: Animal Pathology Teacher Cardiac Status Clinical evaluation leading to the procedure CAD Presenation: Non STEMI Anginal Classification: CCS IV Heart Failure: NYHA Class: CCS II Cardiogenic Shock within 24 Hours: No Cardiac Arrest within 24 Hours: No Imaging Studies Past 6 Months: No Stress Studies Past 6 Months: No STEMI OR Non-STEMI Symptom Onset Date: 01/22/22 Coronary Anatomy Left Main (% Stenosis): Normal LAD (% Stenosis): Normal (Mild irregularities) D1 (% Stenosis): Normal (Mild irregularities) D2 (% Stenosis): Normal (Mild irregularities) Circumflex (% Stenosis): Normal OM1 (% Stenosis): Normal (Mild irregularities) OM2 (% Stenosis): Normal (Mild irregularity) L PL1 (% Stenosis): Normal (Mild irregularity) RCA (% Stenosis): Normal (Mild irregularities) R PDA (% Stenosis): Normal R PL1 (% Stenosis): Normal Left Ventricular Angiography EF (%): 50 to 55% Diagnostic Physicians Name: Vishal Redmond MD, PhD Closure Device Recommendations: Medical Therapy and/or Counseling Cardiac Cath Procedure Full Procedure Date January 23, 2022 Pre-Procedure Diagnosis Pre-Procedure Diagnosis: Non STEMI AUC Score AUC Score: 08 Post-Procedure Diagnosis Post-Procedure Diagnosis: Mild CAD Procedure(s) Performed Procedure(s) Performed: Coronary Angiography, Left Heart Cath and LV Angiography Internet Specialist Vishal Redmond MD, PhD Estimated Blood Loss Estimated Blood Loss: 10 ml Medication(s) Medication(s): fentanyl, versed, heparin, NTG, nicardipine Summary of Findings Brief description: Patient was brought to the cardiac catheterization suite where he was shaved and prepped in a sterile fashion. Sedated using IV Versed and fentanyl. Soft tissues of the right wrist were anesthetized using 2 mL of 1% Xylocaine. Right radial artery was accessed with a modified Seldinger technique and a 6 [place] radial artery glide sheath was placed. Provided antispasmodics including verapamil and nitroglycerin. Was on heparin drip stopped just prior to transfer down to the Animal Pathology Teacher. All catheters were advanced and exchanged over a 0.035 J- tip wire. Left coronary angiography in orthogonal views with a 5 [place] TIGR diagnostic catheter. Right coronary angiography in orthogonal views with a 5 [place] JR4 diagnostic catheter. Left heart cath and left ventriculography performed with a 5 [place] angled pigtail catheter. Diagnostic catheters were removed. Radial artery sheath removed. Hemostasis obtained using the TR band. Patient was hemodynamically stable and asymptomatic. He was returned to the recovery area. This end of the case. Findings: LMT: Large caliber bifurcating into LAD and circumflex. No angiographically significant disease. LAD: Large caliber and transapical. Proximal segment with mild luminal irregularities. Provides a large caliber septal trunk and at the same level a medium caliber diagonal. Mild luminal irregularities in each. Mid LAD with minimal disease. Large caliber branching second diagonal with mild luminal irregularities. The distal LAD has mild scattered plaques of less than 20% narrowing. Left circumflex: Large caliber and nondominant. Travels in the AV groove where gives a relatively small first OM. It then gives a large caliber multi branching OM 2 and an atrial branch which is large. There is a small posterolateral branch as the circumflex terminates distally. Diffuse luminal irregularities in the circumflex and its branches. RCA: Large caliber and dominant. Bifurcates distally into a large PDA and a medium caliber posterior lateral branch. Mild luminal irregularities in the RCA and its branches. Note: Sluggish flow throughout both coronary arteries. LVEF: 50 to 55% in the TREVINO projection Hemodynamics Rest Ao:: 113/81 mmHg, mean 96 mmHg Final Ao: 123/89 mmHg, mean 107 mmHg LV: 117/14 mmHg, LVEDP 18 mmHg Recommendations Recommendations: Medical Therapy and/or Counseling Specimens Specimens: None Radiation Exposure (mGy) 168 4 mGy, 4.8 minutes fluoroscopy time Contrast (mls) 110 mL Anesthesia 1 mg IV Versed, 25 mcg IV fentanyl Procedural Complication(s) None Disposition Recovery Room\PACU I attest to the content of the Intraoperative Record and any orders documented therein. Any exceptions are noted below. [facility] Card Cath Procedure Codes Cardiac Catheterization Procedure 1: Cardiovascular Cath Procedures: 59402 Coronaries and LHC (+/-LV) Moderate Sedation Procedure 1: Sedation/Anesthesia: 05380 Mod Sedation by the same physician;Init15 Min Child Age 5 & Up (18 minutes) PG Care Time/CCT Total # of Minutes Spent Total Time Spent with Patient: Total time spent is greater than 50% in coordination of care (as documented) at patient's floor/unit and/or counseling patient:
--- NOTE | 2022-01-23 15:58 | Medical Student Progress Note ---
Date of Service January 23, 2022 Assessment & Plan (1) Non-ST elevation [place] (NSTEMI): Plan Hollis Connolly is a 51 year old male patient with a past medical history of cardiomyopathy and HFpEF s/p myectomy, biventricular ICD placement, and mitral valve repair admitted for workup of substernal chest pain. Substernal Chest Pain-Concern for NSTEMI Chest pain initially resolved with nitroglycerin. Upon admission the patient was started on a heparin drip, aspirin, atorvastatin increased 10 to 40mg, continued home metoprolol 100mg, nitro paste, and morphine prn for chest pain. Catheterization report revealed normal coronary atatomy with no obstruction. Recommend patient follows up with cardiology as outpatient. Type II Diabetes Mellitus Continue Lantus 5 units daily. Hold off on home medications. Patient is in communication with community educator. Acute Epigastric Pain Patient is experiencing postprandial epigastric pain that radiates to his back. Possible suspicion for pancreatitis although patient is afebrile, LFTs are WNL, and patient does not report nausea or vomiting. Will obtain lipase level. If negative, will discharge patient to follow up with PCP. FEN: Diabetic conscious diet. Code: Full Code. DVT Prophylaxis: Heparin drip Disposition: Awaiting lipase level to determine discharge. Admission and Anticipated Discharge Date Admission Date: January 22, 2022 Romeo Connolly is a 51 year old male patient with a past medical history of cardiomyopathy and HFpEF s/p myectomy, biventricular ICD placement, and mitral valve repair admitted for chest pain and workup of suspected acute coronary syndrome. Today the patient states his chest pain has returned 5-10 minutes after eating lunch. He describes the pain as stabbing and radiates to his back. He denies radiation to his shoulder. Patient states this pain is different than how he experienced acid reflux in the past. Patient is unable to correlate initial symptoms with time of eating. Review of Systems Constitutional: No fever, no chills, no fatigue. Respiratory: No SOB, no cough, no wheezing. Cardiovascular: Additional Comments: +chest pain, no palpitations. Gastrointestinal: +abdominal pain, no nausea, no vomiting, no constipation, no diarrhea. Physical Exam Constitutional: Alert and oriented, in no acute distress. Respiratory: Lungs clear to auscultation. Breath sounds equal on both sides. No rhonchi, rales, or wheezes. Cardiovascular: Regular rate and rhythm. No murmurs, rubs, or gallops. Tenderness to palpation in substernal area. Capillary refill <2 seconds. No JVD, no bruits. Mild non-pitting edema in bilateral lower extremities. Normal dorsalis pedis and posterior tibialis pulses bilaterally. Gastrointestinal (Abdomen): Normal bowel sounds. Abdomen soft and nondistended. Tenderness to palpation over epigastric region. No rebound. No hepatosplenomegaly. Negative Munoz's Sign. Negative Adam's sign. 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 Results & Data ([facility]) Vital Signs (Past 12 Hours) Vital Signs Temp Pulse Pulse Pulse Resp BP BP 01/23/22 14:08 59 L 18 113/74 01/23/22 12:21 61 18 115/77 01/23/22 11:49 71 18 114/74 01/23/22 11:06 60 17 01/23/22 11:35 60 20 103/71 01/23/22 11:10 61 18 113/79 01/23/22 10:45 36.6 C 61 20 115/74 01/23/22 10:30 84 18 120/72 01/23/22 10:15 92 H 18 113/72 01/23/22 09:30 61 18 128/81 01/23/22 07:05 59 L 16 01/23/22 07:13 36.4 C L 70 18 116/83 01/23/22 03:43 36.3 C L 60 18 123/81 Pulse Ox O2 Del Method FiO2 01/23/22 14:08 96 Room Air 01/23/22 12:21 96 Room Air 01/23/22 11:49 95 Room Air 01/23/22 11:06 92 21 01/23/22 11:35 94 CPAP 01/23/22 11:10 94 CPAP 01/23/22 10:45 94 Room Air 01/23/22 10:30 94 Room Air 01/23/22 10:15 93 Room Air 01/23/22 09:30 95 Room Air 01/23/22 07:05 96 21 01/23/22 07:13 97 CPAP 01/23/22 03:43 96 CPAP Laboratory Results Cardiac Enzymes 01/23/22 Range/Units 05:29 AST 21 (13-39) U/L Coagulation 01/22/22 01/23/22 Range/Units 21:07 05:29 PT 11.3 (9.0-12.0) Seconds APTT 55.9 H* 65.0 H* (21.0-31.0) Seconds CBC 01/23/22 Range/Units 05:29 WBC 5.48 (4.8-10.8) K/ul RBC 5.05 (4.63-6.08) M/uL Hgb 14.9 (14.0-18.0) g/dl Hct 42.6 (40.1-51.0) % Plt Count 168 (130-400) K/uL Neut # (Auto) 2.83 (1.4-6.5) K/uL Lymph # (Auto) 1.98 (1.2-3.4) K/uL [place] # (Auto) 0.41 (0.24-0.82) K/uL Eos # (Auto) 0.16 (0-0.50) K/uL Baso # (Auto) 0.06 (0-0.2) K/uL Comprehensive Metabolic Panel 01/23/22 Range/Units 05:29 Sodium 136 (136-145) mmol/L Potassium 4.0 (3.5-5.1) mmol/L Chloride 101 (98-107) mmol/L Carbon Dioxide 29 (21-32) mmol/L BUN 16 (6-23) mg/dl Creatinine 0.97 (0.6-1.4) mg/dl Glucose 219 H (70-99(Fasting)) mg/dl Calcium 8.9 (8.5-10.1) mg/dl AST 21 (13-39) U/L ALT 33 (7-52) U/L Alkaline Phosphatase 65 (34-104) U/L Total Protein 6.1 (6.0-8.3) gm/dl Albumin 3.7 (3.4-5.0) gm/dl Intake and Output 01/23/22 01/23/22 01/23/22 06:59 14:59 22:59 Intake Total 500 / 500 Output Total 300 / 1250 600 / 600 Balance -300 / -355.1 -100 / -100 Intake: IV 500 / 500 Heparin Sodium/Dextrose 25,000 500 / 500 units In 500 ml @ 1,950 UNITS/ HR 39 mls/hr IV .[id number] [facility] Rx #:[id number] Output: Urine 300 / 1250 600 / 600 Other: Weight 141.4 kg Weight Measurement Method Built in [facility]
--- NOTE | 2022-01-23 16:25 | Electrocardiogram Report ---
Test Reason : Blood Pressure : / mmHG Vent. Rate : 060 BPM Atrial Rate : 060 BPM P-R Int : 166 ms QRS Dur : 196 ms QT Int : 546 ms P-R-T Axes : 110 -77 111 degrees QTc Int : 546 ms AV dual-paced rhythm Biventricular pacemaker detected Abnormal ECG When compared with ECG of 22-JAN-2022 05:28, Vent. rate has decreased BY 16 BPM Confirmed by Stephen Medrano ([id number]) on 01/23/2022 4:25:29 PM Referred By: REFERRED SELF Confirmed By:Stephen Medrano
--- NOTE | 2022-01-23 16:39 | Electrocardiogram Report ---
Test Reason : Blood Pressure : / mmHG Vent. Rate : 063 BPM Atrial Rate : 063 BPM P-R Int : 168 ms QRS Dur : 188 ms QT Int : 518 ms P-R-T Axes : 079 -70 107 degrees QTc Int : 530 ms AV dual-paced rhythm Biventricular pacemaker detected Abnormal ECG When compared with ECG of 23-JAN-2022 05:57, (unconfirmed) Vent. rate has increased BY 3 BPM Confirmed by Stephen Medrano ([id number]) on 01/23/2022 4:39:28 PM Referred By: REFERRED SELF Confirmed By:Stephen Medrano
[2022-01-23] MEDS ORDERED: MAGNESIUM SULFATE / D5W 1 GM/100 ML BAG IV ONE (18:45)
[2022-01-23] MEDS ORDERED: MAGNESIUM OXIDE 400 MG TAB PO STA (18:52)
--- NOTE | 2022-01-23 19:17 | Discharge Summary ---
Date of Service January 23, 2022 Admission HPI Per Admitting Provider This is a 51-year-old male with a history of hypertrophic cardiomyopathy status post myectomy, HFpEF status post biventricular ICD placement, hypertension, hyperlipidemia, status post mitral valve repair, Type 2 diabetes, obstructive sleep apnea resented to [facility] for evaluation of chest pain. Patient says that he was in his normal state of health the last few days when earlier in the evening, he began developing substernal chest pain that he described as "stabbing "and radiated to his back. No radiation to his arm or jaw. He said that during this time, it might of gotten worse with exertion. Might of been associated with some mild increase in baseline shortness of breath, but nothing significant. He said around the same time, he was having bad bilateral leg cramps. He says that he will get these on occasion, but these were oddly bad. He denies any significant increases in swelling. Denies any use of Lasix within the last several months. Denies any recent fevers, chills, sweats. EMS was called due to persistent chest pain that he rated as a 10 out of 10 at its worst. He was given sublingual nitroglycerin, which helped with his pain, as well as aspirin 324 in route. Upon arrival to the ED, he was chest pain- free, but subsequently did redevelop chest pain. He was given Nitropaste. At the time my interview, he says that pain has improved, but is still mildly there in the center of his chest. He endorses chewing 1 can of snuff a day. Denies any use of cigarettes. Denies any daily use of alcohol. Denies any use of recreational drugs other than occasional edible for his lower back pain. Medications reviewed and include atorvastatin, diltiazem, furosemide, gabapentin, insulin, Sitagliptin, metformin, metoprolol, potassium. In the ED, patient was found to be hypertensive to 160/80, with otherwise normal vital signs.Admission labs demonstrated mild hyperglycemia 203 as well as elevated highly sensitivity troponin at 83.3. ECG without significant abnormalities compared to prior comparisons. He was started on heparin drip and nitroglycerin. Admission Exam Per Admitting Provider General: 51-year old male who is alert, oriented, and appears in no acute distress. HEENT: NCAT. - Eyes - Sclera are white, anicteric, and without injection. - Mouth - MMM - Neck - supple, no appreciable JVD Cardiac: Normal rate and regular rhythm; S1 and S2 present with no murmurs, rubs, or gallops. Pulmonary: Good respiratory effort with symmetric expansion of the chest. No use of accessory muscles. Difficult exam given habitus, but of what could be heard, lungs were clear to auscultation bilaterally with no crackles or wheezes. Abdominal: Normoactive bowel sounds. Abdomen was soft, nondistended, and non- tender to palpation. Extremities: Upper and lower extremities are warm and well perfused. Minimal peripheral edema in the lower extremities bilaterally Psych: Well-developed, well-nourished, appropriately dressed for occasion. Behavior is cooperative and appropriate. Affect is WNL. Insight is appropriate. Principal Diagnosis Demand ischemia induced chest pain. Discharge Exam Constitutional WD/WN, vitals as above Eyes PERRL, conjunctivae normal, anicteric sclerae Respiratory normal respiratory effort, lungs clear to auscultation Cardiovascular Rate/Rhythm: regular rate and regular rhythm Heart Sounds: normal S1 and normal S2 Gastrointestinal (Abdomen) normal bowel sounds, soft, nontender, no hepatosplenomegaly Skin no rashes, warm and dry Psychiatric A+Ox3, euthymic affect Discharge Data Allergies Allergy/AdvReac Type Severity Reaction Status Date / Time erythromycin base Allergy Severe Anaphylaxis Verified 03/20/21 15:38 Consultations 01/22/22 06:04 ED Decision to Admit Stat 01/22/22 08:32 Consult Cardiology Routine Procedures Performed Operation Date: 01/23/22 09:30 Actual Procedures s Cineradiography w/Routine Exam - Vishal Redmond MD, PhD p Cath, Left with Cors and Vent - Vishal Redmond MD, PhD Ordered Studies 01/23/22 06:32 CL Cath Imgs for PACS use only Routine Hospital Course (1) Left-sided chest pain: This is a 51-year-old male with a history of hypertrophic cardiomyopathy s/p myectomy, HFpEF status post biventricular ICD placement, hypertension, hyperlipidemia, s/p mitral valve repair, T2DM, MEENU admitted to the hospital for evaluation of chest pain relieved by nitroglycerin and associated with a mild bump in hsTrp, concerning for NSTEMI. Chest Pain -Substernal chest pain relieved with nitroglycerin x2 episodes. Primary concern at this time is ACS. -Troponin 83.3 on admission, peaked at 84.5. -Echo 01/22/22: Severe LVH, EF 55-60%, RV not well seen but appears dilated. -On admission was given heparin drip, ASA daily, atorvastatin increased to 40mg daily, continuing home metoprolol, nitro paste and morphine PRN for chest pain. -Consulted cardiology: -suspect raised trop secondary to hypertensive urgency and underlying LVH. -Taken to cath to r/o worsening of coronary vessels given underlying poorly controlled DM. -Cath unremarkable for signs of significant stenosis. -Continue current medical therapy, agree with increase of atorvastatin from 10mg to 40mg. -Discussed with patient to use Famotidine/Pepcid 20mg daily on discharge as well as sent in for new 40mg dose of atorvastatin. -BP control Severe hypertrophic cardiomyopathy s/p Myectomy and ICD HTN -On diltiazem 360mgs, metoprolol 100mgs daily. -continue Outpatient BP monitoring Type 2 diabetes -Patient had glucose in the 300's and 400's during stay, says at times at home he may have sugars to the 500's. -A1c 10.4 this visit. -F/u outpatient Hyperlipidemia -Cholesterol 215, triglycerides 183, HDL 37. -Increased atorvastatin from 10 mg to 40 mg. (2) Hypertrophic cardiomyopathy: (3) Biventricular ICD (implantable cardioverter-defibrillator) in place: (4) Type 2 diabetes mellitus: (5) Hyperlipidemia: (6) HTN (hypertension): Noted. Continue metoprolol and diltiazem. (7) Chronic diastolic congestive heart failure: Total Time Total Time Spent Total Time Spent (In Minutes): Please see attending attestation. Discharge Plan Discharge Items Patient Disposition: Home - Self-Care Reason For Visit: NSTEMI Discharge Diagnosis: Demand ischemia induced chest pain Activity: Per Instructions section Non-emergency contact: Primary Care Provider and [employer] Net Developer Call non-emergency contact if: your symptoms worsen, your pain is worsening and your temperature is above 101 Follow-up/Referrals: Joaquin Ritter DO [Primary Care Provider] - Diet: Regular Addtl Attending Provider Instructions: A discharge summary will be sent to your primary care physician to ensure continuity of care. You were seen in the emergency department for new excruciating chest pain relieved by nitroglycerin. When you were admitted to the hospital we obtained blood work from you which was completely normal except for a few labs. A lab called troponin was elevated mildly on entry however this trended downward after a day; this lab may be a marker of decreased oxygen flow to the coronary arteri es. Your blood sugars were also very elevated and your A1c came back at 10.4. During your hospital stay your blood sugars went as high as the 400's. You were seen by cardiology in the hospital who took you to get a cardiac catheterization to check on the status of your coronary arteries. They did not find any heavy narrowing of your coronary arteries to indicate this was the main cause of your chest pain. As such we do not think you had a heart attack, this may have been due to transient decreased blood flow to the coronary arteries of the heart that triggered the pain. If you find yourself having the pain again please take the nitroglycerin for relief. If you find it is not relieved by nitroglycerin or the pain is not decreased by the nitroglycerin at all then go to the emergency department. Please follow up with your primary care provider to discuss diabetes management and ways to improve glucose control. Follow-up: * You should be seen by your primary physician within the next few weeks. * You should be seen by your wool hat flanger or cardiology office for follow up within the next few weeks. Medications: Your medication list has been reviewed and reconciled upon discharge to ensure accuracy and continuity of care. An updated list of all your medications is included with your hospital discharge paperwork. Please review this list closely, and make note of any changes. * Please start taking Famotidine (also known as Pepcid) 20mg once a day or 10mg twice a day to help eliminate any aspect of the pain that may be due to reflux/GERD. You can obtain this over the counter from any pharmacy. * We increased your atorvastatin medication 10mg to 40mg daily to help decrease the risk of coronary disease. A new prescription was sent to your pharmacy, please pick it up when you are able to. Take your medications as instructed; do not skip a dose of your medicines. Make sure all of your doctors know every medicine you are taking (including [id number] medicines, vitamins, and supplements). let your primary care provider know before taking any new medicines because some of these may interact with your current medications, or may make your symptoms worse. CONTACT YOUR PRIMARY CARE PROVIDER if you experience any of the following: * Fevers or shaking chills * Shortness of breath not relieved by inhalers, fainting * Sudden abdominal distension not relieved by catheterization. * Difficulty following your treatment plan, or difficulty taking medications CALL 911 OR GO TO THE EMERGENCY DEPARTMENT if you experience any of the following: * Sudden, severe abdominal pain or nausea/vomiting * Severe chest pain, or chest pain that radiates (moves) to your jaw or arm * Sudden, severe shortness of breath or difficulty breathing It was was our pleasure taking care of you here at [facility] . Thank you for allowing us to participate in your care. Pending Studies at Discharge: No Stand-Alone Forms: My [facility], Smoking Cessation Medications and DC Order Prescriptions: New atorvastatin 40 mg tablet 40 mg PO DAILY Qty: 30 0RF Continued diltiazem HCl 360 mg capsule,extended release 24hr 360 mg PO DAILY Qty: 90 3RF hydrocodone-acetaminophen 5-325 mg tablet 1 tab PO DAILY PRN (Reason: Pain) potassium chloride 20 mEq Tablet Extended Release 20 meq PO QAM PRN (Reason: when taking lasix) metoprolol succinate 100 mg tablet extended release 24 hr 100 mg PO QAM metformin 1,000 mg tablet 1,000 mg PO BID Lantus Solostar U-100 Insulin 100 unit/mL (3 mL) insulin pen 40 unit subcut QAM Januvia 100 mg tablet 100 mg PO QAM insulin aspart U-100 [Novolog Flexpen U-100 Insulin] 100 unit/mL (3 mL) insulin pen 6 - 14 unit SUBCUT TID insulin aspart U-100 [Novolog Flexpen U-100 Insulin] 100 unit/mL (3 mL) insulin pen 5 unit SUBCUT HS furosemide 80 mg tablet 80 mg PO BID17 PRN (Reason: Fluid Retention) Lantus Solostar U-100 Insulin 100 unit/mL (3 mL) Insulin Pen 5 units subcut HS lidocaine 5 % adhesive patch,medicated 1 patch topical DAILY gabapentin 300 mg capsule 300 mg PO HS Discontinued atorvastatin 10 mg tablet 10 mg PO QAM Discharge Orders: Discharge Order (Routine); Ordered 01/23/22 Ordered By: Brandyn Lee Admission Data Admit Date/Time: 01/22/22 06:08 Attending Provider: Radha Garcia Admit Provider: Andrea Davis Primary Care Provider: Joaquin Ritter Other Providers: Andrea Davis ; Angelito Durán Supervising Physician Co-Signing Physician Notes Resident Physician Supervision Note: I independently interviewed and examined the patient and verified the ramirez history and physical, reviewed labs and image studies and agree with resident findings and care plan.
[2022-01-23] MEDS: GABAPENTIN 300 MG CAP PO SCH (19:58)
--- NOTE | 2022-01-23 20:00 | Communication Note ---
Date of Service: January 23, 2022 By CMS guidelines, a determination that the admission or continued stay is not medically necessary has been made by a member of the UR committee and a physician for this hospital stay, therefore a Code 44 will be completed and the Inpatient admission will be changed to outpatient.
[2022-01-23] MEDS: HYDROCODONE/ACETAMOPHEN 5/325MG TAB PO PRN (20:05)
[2022-01-24] MEDS: NITROGLYCERIN 2% OINTMENT 30GM TUBE EXT SCH (04:44)
[2022-01-24 06:05] LABS: Basophils # (auto) 0.05 K/uL (0-0.2); Basophils % (auto) 0.8 %; Eosinophils # (auto) 0.15 K/uL (0-0.50); Eosinophils % (auto) 2.5 %; Hematocrit (blood only) 43.1 % (40.1-51.0); Hemoglobin 15.4 g/dl (14.0-18.0); Immature Granulocytes # (auto) 0.04 K/uL (0.00-0.02); Immature Granulocytes % (auto) 0.7 %; Lymphocytes # (auto) 1.86 K/uL (1.2-3.4); Lymphocytes % (auto) 31.3 %; Mean Corpuscular Hgb Conc 35.7 g/dL (32.0-36.0); Mean Platelet Volume 11.3 fL (9.4-12.4); Monocytes # (auto) 0.52 K/uL (0.24-0.82); Monocytes % (auto) 8.8 %; Neutrophils # (auto) 3.32 K/uL (1.4-6.5); Neutrophils % (auto) 55.9 %; Platelet Count 181 K/uL (130-400); RDW Coefficient of Variation 12.9 % (11.5-14.5); RDW Standard Deviation 39.3 fL (36.4-46.3); Red Blood Count 5.13 M/uL (4.63-6.08); White Blood Count 5.94 K/ul (4.8-10.8)
[2022-01-24 06:20] LABS: INR 1.1 (0.9-1.1); Prothrombin Time 11.2 Seconds (9.0-12.0)
[2022-01-24 06:30] LABS: Albumin Globulin Ratio 1.6 (0.9-2); Albumin Level 3.8 gm/dl (3.4-5.0); BUN Creatinine Ratio 19.1 (10-20); Bilirubin,Total 0.6 mg/dl (0.2-1.0); Creatinine Clr Calc Pharmacy 142.8 ml/min; Est GFR (African American) 109.1 ml/min; Est GFR (Non-African American) 94.2 ml/min; Globulin 2.4 gm/dl (2.5-4.0); Magnesium 1.9 mg/dl (1.7-2.4); Total Protein 6.2 gm/dl (6.0-8.3)
[2022-01-24] MEDS: INSULIN ASPART PER UNIT SC SCH ×2 (08:01→12:03)
[2022-01-24] MEDS: ATORVASTATIN 40 MG TAB PO SCH (08:03)
[2022-01-24] MEDS: ASPIRIN 81 MG ECTAB PO SCH (08:03)
[2022-01-24] MEDS: LANTUS PER UNIT CHARGE SQ SCH (08:48)
[2022-01-24] MEDS: dilTIAZem HCL 180 MG CAPCR PO SCH (08:50)
[2022-01-24] MEDS: METOPROLOL SUCC 50MG EXT REL TAB PO SCH (08:50)
--- NOTE | 2022-01-24 10:40 | Cardiology Progress Note ---
Date of Service January 24, 2022 Assessment & Plan (1) Acute non-ST elevation myocardial infarction (NSTEMI): Plan: Cardiac catheterization revealed there was no significant occlusive coronary disease. Likely type II non-ST elevation MS. Continuing low-dose aspirin, statin, and beta-pipe. The complications of cath. (2) Palpitations: Plan: Suspect this may correlate to the brief episodes of nonsustained ventricular tachycardia, although he did not feel any during this admission. He does have a defibrillator in place and his electrolytes are within normal limits. For now, no change in his beta-pipe or calcium channel pipe. His primary panel edge sealer may consider an antiarrhythmic depending on his burden of ventricular ectopy/nonsustained ventricular tachycardia which may be obtained off of his device in the outpatient setting. Present on Admission?: Yes (3) Hyperlipidemia: Plan: High risk (diabetes). Continue high intensity statin therapy with Lipitor 40 mg daily. Plan At this time the patient is appropriate for discharge from a cardiovascular standpoint. He should follow-up with his primary panel edge sealer within 2 to 4 weeks of discharge. Admission and Anticipated Discharge Date Admission Date: January 22, 2022 Subjective Patient feeling well today. No chest pain or shortness of breath. No pain at the radial artery access site. He had brief episode of nonsustained ventricular tachycardia which was asymptomatic and for which he did not receive ICD shock. Physical Exam Constitutional: WD/WN, vitals as above Neck: No JVD Respiratory: normal respiratory effort, lungs clear to auscultation Cardiovascular: Regular rate and rhythm. Paced on the monitor. Gastrointestinal (Abdomen): NABS Neurologic: Cognition intact. Speech fluent. No focal deficits. Psychiatric: A+Ox3, euthymic affect Results & Data ([facility]) Vital Signs (Past 12 Hours) Vital Signs Temp Pulse Pulse Pulse Resp BP BP 01/24/22 08:05 36.5 C 60 16 108/70 01/24/22 03:56 36.6 C 82 18 97/63 L 01/24/22 02:40 72 21 01/23/22 23:26 36.6 C 63 20 121/74 01/23/22 23:21 64 Pulse Ox O2 Del Method FiO2 01/24/22 08:05 97 Room Air 01/24/22 03:56 96 CPAP 01/24/22 02:40 94 01/23/22 23:26 96 BiPAP 01/23/22 23:21 PG Care Time/CCT Total # of Minutes Spent Total Time Spent with Patient: Total time spent is greater than 50% in coordination of care (as documented) at patient's floor/unit and/or counseling patient: Coding [place] [address] Subseq Hosp Care Lvl 1 Patient Type Established Diagnoses Acute non-ST elevation myocardial infarction (NSTEMI) I21.4 Palpitations R00.2 Hyperlipidemia E78.5 Hyperlipidemia type: unspecified (1) Hyperlipidemia Hyperlipidemia type: unspecified Qualified Code(s): E78.5 - Hyperlipidemia, unspecified
--- NOTE | 2022-01-24 12:20 | Electrocardiogram Report ---
Test Reason : Blood Pressure : / mmHG Vent. Rate : 061 BPM Atrial Rate : 061 BPM P-R Int : 180 ms QRS Dur : 188 ms QT Int : 530 ms P-R-T Axes : 057 -75 104 degrees QTc Int : 533 ms AV dual-paced rhythm Abnormal ECG When compared with ECG of 23-JAN-2022 11:07, Vent. rate has decreased BY 2 BPM Confirmed by Stephen Medrano ([id number]) on 01/24/2022 12:20:12 PM Referred By: REFERRED SELF Confirmed By:Stephen Medrano
--- NOTE | 2022-01-24 13:05 | Hospitalist Progress Note ---
Date of Service January 23, 2022 Assessment & Plan (1) Left-sided chest pain: Plan: This is a 51-year-old male with a history of hypertrophic cardiomyopathy s/p myectomy, HFpEF status post biventricular ICD placement, hypertension, hyperlipidemia, s/p mitral valve repair, T2DM, MENEU admitted to the hospital for evaluation of chest pain relieved by nitroglycerin and associated with a mild bump in hsTrp, concerning for NSTEMI. Chest Pain -Substernal chest pain relieved with nitroglycerin x2 episodes. Primary concern at this time is ACS. -Troponin 83.3 on admission, peaked at 84.5. -Echo 01/22/22: Severe LVH, EF 55-60%, RV not well seen but appears dilated. -On admission was given heparin drip, ASA daily, atorvastatin increased to 40mg daily, continuing home metoprolol, nitro paste and morphine PRN for chest pain. -Consulted cardiology: -suspect raised trop secondary to hypertensive urgency and underlying LVH. -Taken to cath to r/o worsening of coronary vessels given underlying poorly controlled DM. -Cath unremarkable for signs of significant stenosis. -Continue current medical therapy, agree with increase of atorvastatin from 10mg to 40mg. -Discussed with patient to use Famotidine/Pepcid 20mg daily on discharge as well as sent in for new 40mg dose of atorvastatin. -BP control Severe hypertrophic cardiomyopathy s/p Myectomy and ICD HTN -On diltiazem 360mgs, metoprolol 100mgs daily. -continue Outpatient BP monitoring Type 2 diabetes -Patient had glucose in the 300's and 400's during stay, says at times at home he may have sugars to the 500's. -A1c 10.4 this visit. -F/u outpatient Hyperlipidemia -Cholesterol 215, triglycerides 183, HDL 37. -Increased atorvastatin from 10 mg to 40 mg. DVT Prophylaxis: Heparin drip Code Status: Full code Dispo: PCU/tele, home 01/24. (2) Hypertrophic cardiomyopathy: (3) Biventricular ICD (implantable cardioverter-defibrillator) in place: (4) Type 2 diabetes mellitus: (5) Hyperlipidemia: (6) HTN (hypertension): Plan: Noted. Continue metoprolol and diltiazem. (7) Chronic diastolic congestive heart failure: Admission and Anticipated Discharge Date Admission Date: January 22, 2022 Supervising Physician Co-Signing Physician Notes Resident Physician Supervision Note: I independently interviewed and examined the patient and verified the ramirez history and physical, reviewed labs and image studies and agree with resident findings and care plan. Subjective Patient seen at the bedside in the morning without any new complaints, headache expected with nitro use. Had catheter procedure. Denied any shortness of breath above baseline, fevers, chills, worsening of chest pain. Review of Systems Review of Systems: as per HPI Physical Exam Constitutional: WD/WN, vitals as above Eyes: PERRL, conjunctivae normal, anicteric sclerae Respiratory: normal respiratory effort, lungs clear to auscultation Cardiovascular: Rate/Rhythm: regular rate and regular rhythm Heart Sounds: normal S1 and normal S2 Gastrointestinal (Abdomen): normal bowel sounds, soft, nontender, no hepatosplenomegaly Skin: no rashes, warm and dry Psychiatric: A+Ox3, euthymic affect Results & Data Results & Data ([facility]) Vital Signs (Past 12 Hours) Vital Signs Temp Pulse Pulse Pulse Resp BP BP 01/24/22 11:47 36.5 C 60 82 16 97/63 L 108/70 01/24/22 08:05 36.5 C 60 16 108/70 01/24/22 03:56 36.6 C 82 18 97/63 L 01/24/22 02:40 72 21 Pulse Ox O2 Del Method FiO2 01/24/22 11:47 97 01/24/22 08:05 97 Room Air 01/24/22 03:56 96 CPAP 01/24/22 02:40 94 21 Resident Activity Tracking Resident Involvement: Resident Care Provided Care Provided: Adult Hospital Medicine (1) Type 2 diabetes mellitus 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 complication status: with hyperglycemia 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 longitudinal float operator insulin use: with longitudinal float operator use Qualified Code(s): E11.65 - Type 2 diabetes mellitus with hyperglycemia; Z79.4 - custodial (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 (2) Hyperlipidemia Hyperlipidemia type: unspecified Qualified Code(s): E78.5 - Hyperlipidemia, unspecified (3) HTN (hypertension) Hypertension type: unspecified Qualified Code(s): I10 - Essential (primary) hypertension
--- NOTE | 2022-01-29 19:28 | Billing Data ---
Date of Service January 29, 2022 Coding Level of Care Code 16803 Initial Inpt Care Lvl 3
== END 2022-01-24 12:15 | disposition home or self-care (01) | DRG 287 ==
LOC: ED 03:49 → 2S 06:08 → SUATTDRO 06:08 → 2S 07:59
DX: E78.5 Hyperlipidemia, unspecified; Z95.810 Presence of automatic (implantable) cardiac defibrillator; I13.0 Hypertensive heart and chronic kidney disease with heart failure and stage 1 through stage 4 chronic kidney disease, or unspecified chronic kidney disease; N18.9 Chronic kidney disease, unspecified; G47.33 Obstructive sleep apnea (adult) (pediatric); I24.8 Other forms of acute ischemic heart disease; Z87.891 Personal history of nicotine dependence; Z86.74 Personal history of sudden cardiac arrest; I50.32 Chronic diastolic (congestive) heart failure; I42.2 Other hypertrophic cardiomyopathy; E11.22 Type 2 diabetes mellitus with diabetic chronic kidney disease; Z83.3 Family history of diabetes mellitus; Z79.4 Long term (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

== ENCOUNTER 2022-08-09 23:42 | Inpatient (IN) ==
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
[2022-08-10] MEDS ORDERED: SODIUM CHLORIDE 0.9% 1000ML 1,000 ML IV ONE (00:09)
[2022-08-10 00:31] LABS: HCO3 VBG 26 mmol/L; PCO2 VBG 42 mmHg (38-50); PO2 VBG 47 mmHg
[2022-08-10 00:33] LABS: Basophils # (auto) 0.06 K/uL (0-0.2); Eosinophils # (auto) 0.17 K/uL (0-0.50); Eosinophils % (auto) 2.7 %; Hematocrit (blood only) 46.6 % (42.0-52.0); Hemoglobin 17.2 g/dl (14.0-18.0); Immature Granulocytes # (auto) 0.04 K/uL (0.01-0.20); Immature Granulocytes % (auto) 0.6 %; Lymphocytes # (auto) 1.67 K/uL (1.2-3.4); Lymphocytes % (auto) 26.6 %; Mean Corpuscular Hemoglobin 29.9 pg (25.0-34.0); Mean Corpuscular Hgb Conc 36.9 g/dL (32.0-36.0); Mean Platelet Volume 11.6 fL (9.4-12.4); Monocytes # (auto) 0.53 K/uL (0.11-0.59); Monocytes % (auto) 8.4 %; Neutrophils # (auto) 3.82 K/uL (1.40-6.50); Neutrophils % (auto) 60.7 %; Platelet Count 163 K/uL (130-400); RDW Coefficient of Variation 12.5 % (11.5-14.5); RDW Standard Deviation 35.9 fL (36.4-46.3); Red Blood Count 5.75 M/uL (4.70-6.10); White Blood Count 6.29 K/ul (4.8-10.8)
[2022-08-10] MEDS ORDERED: INSULIN HUMAN REGULAR SC STA (01:07)
[2022-08-10 01:09] LABS: Albumin Globulin Ratio 1.4 (0.9-2); Albumin Level 4.4 gm/dl (3.4-5.0); BUN Creatinine Ratio 16.5 (10-20); Bilirubin,Total 0.7 mg/dl (0.2-1.0); Calcium 9.3 mg/dl (8.6-10.3); Creatinine Clr Calc Pharmacy 128.8 ml/min; Est GFR (African American) 91.2 ml/min; Est GFR (Non-African American) 78.7 ml/min; Globulin 3.2 gm/dl (2.5-4.0); Potassium 4.2 mmol/L (3.5-5.1); Total Protein 7.6 gm/dl (6.0-8.3); Troponin I High Sensitivity 72.6 pg/ml (0-20)
[2022-08-10] MEDS ORDERED: NovoLIN-R INSULIN PER UNIT CHARGE SC STA (01:14)
[2022-08-10] MEDS ORDERED: OPTIRAY 320 500ml IV ONE (01:33)
[2022-08-10 02:53] LABS: Partial Thromboplastin Time 27.7 Seconds (21.0-31.0); Prothrombin Time 10.9 Seconds (9.0-12.0)
--- NOTE | 2022-08-10 04:05 | CT Scan Report ---
Exam(s): CT HEAD Without Contrast EXAM: CT Head Without Intravenous Contrast CLINICAL HISTORY: Stroke. TECHNIQUE: Axial computed tomography images of the head/brain without intravenous contrast. CTDI is 43.31 mGy and DLP is 636.1 mGy-cm. Automated exposure control was utilized for the study. A dose lowering technique was utilized adhering to the principles of ALARA. COMPARISON: CT head 08/13/2019 FINDINGS: Brain: No intracranial hemorrhage, mass-effect or midline shift. No abnormal extra axial fluid. No evidence of acute infarct. Mild periventricular white matter hypodensities are most consistent with chronic microangiopathy. Ventricles: Unremarkable. No ventriculomegaly. Bones/joints: Unremarkable. No acute fracture. Soft tissues: Unremarkable. Sinuses: Unremarkable as visualized. No acute sinusitis. Mastoid air cells: Unremarkable as visualized. No mastoid effusion. IMPRESSION: No acute intracranial finding. Electronically signed by: Jessica Perez MD 08/10/22 04:04 AM
--- NOTE | 2022-08-10 04:08 | CT Scan Report ---
Exam(s): CTA HEAD With Contrast IV Amt: 115 ML OPTIRAY 320 EXAM: CT Angiography Head With Intravenous Contrast CLINICAL HISTORY: Stroke. TECHNIQUE: Axial computed tomographic angiography images of the head with intravenous contrast. CTDI is 43.31 mGy and DLP is 636.1 mGy-cm. Automated exposure control was utilized for the study. A dose lowering technique was utilized adhering to the principles of ALARA. MIP reconstructed images were created and reviewed. CONTRAST: Patient received 115 ML OPTIRAY 320 of IV contrast COMPARISON: No relevant prior studies available. FINDINGS: Right internal carotid artery: No acute findings. Intracranial segment is patent with no significant stenosis. No aneurysm. Right anterior cerebral artery: Unremarkable. No occlusion or significant stenosis. No aneurysm. Right middle cerebral artery: Unremarkable. No occlusion or significant stenosis. No aneurysm. Right posterior cerebral artery: Unremarkable. No occlusion or significant stenosis. No aneurysm. Right vertebral artery: Unremarkable as visualized. Left internal carotid artery: No acute findings. Intracranial segment is patent with no significant stenosis. No aneurysm. Left anterior cerebral artery: Unremarkable. No occlusion or significant stenosis. No aneurysm. Left middle cerebral artery: Unremarkable. No occlusion or significant stenosis. No aneurysm. Left posterior cerebral artery: Unremarkable. No occlusion or significant stenosis. No aneurysm. Left vertebral artery: Unremarkable as visualized. Basilar artery: Unremarkable. No occlusion or significant stenosis. No aneurysm. IMPRESSION: No acute finding of the arteries of the head. Electronically signed by: Jessica Perez MD 08/10/22 04:07 AM
[2022-08-10] MEDS ORDERED: PHARMACY GLYCEMIC MGMT CONSULT PRN (04:09)
[2022-08-10] MEDS ORDERED: HHS GOAL RANGE 250-350 mg/dl ONE (04:09)
[2022-08-10] MEDS ORDERED: STAT IV Infusion **Titration per Protocol STA ×2 (04:09→04:21)
--- NOTE | 2022-08-10 04:10 | CT Scan Report ---
Exam(s): CTA NECK With Contrast IV Amt: 115 ML OPTIRAY 320 EXAM: CT Angiography Neck With Intravenous Contrast CLINICAL HISTORY: Stroke. TECHNIQUE: Routine carotid CT angiography protocol was performed with intravenous contrast. NASCET criteria using the distal ICAs for comparison were used for evaluation of stenoses. CTDI is 43.31 mGy and DLP is 636.1 mGy-cm. Automated exposure control was utilized for the study. A dose lowering technique was utilized adhering to the principles of ALARA. MIP reconstructed images were created and reviewed. CONTRAST: Patient received 115 ML OPTIRAY 320 of IV contrast COMPARISON: None. FINDINGS: VASCULATURE: Right common carotid artery: Unremarkable. No occlusion or significant stenosis. No dissection. Right internal carotid artery: Unremarkable. Extracranial segment is patent with no occlusion or significant stenosis. No dissection. Right external carotid artery: Unremarkable. No occlusion. Right vertebral artery: Unremarkable. No occlusion or significant stenosis. No dissection. Left common carotid artery: Unremarkable. No occlusion or significant stenosis. No dissection. Left internal carotid artery: Unremarkable. Extracranial segment is patent with no occlusion or significant stenosis. No dissection. Left external carotid artery: Unremarkable. No occlusion. Left vertebral artery: Unremarkable. No occlusion or significant stenosis. No dissection. NECK: Bones/joints: There are degenerative changes of the spine. No fracture. Soft tissues: Unremarkable. Lung apices: Clear. CAROTID STENOSIS REFERENCE USING NASCET CRITERIA: % ICA stenosis = (1 - narrowest ICA diameter/diameter of distal cervical ICA) x 100. Mild - <50% stenosis. Moderate - 50-69% stenosis. Severe - 70-94% stenosis. Near occlusion - 95-99% stenosis. Occluded - 100% stenosis. IMPRESSION: No acute finding of the arteries of the neck pain. Electronically signed by: Jessica Perez MD 08/10/22 04:09 AM
[2022-08-10] MEDS ORDERED: INSULIN REGULAR 250 UNITS in SODIUM CHLORIDE 0.9% 247.5 ML IV SCH ×2 (04:15→04:30)
[2022-08-10] MEDS ORDERED: SODIUM CHLORIDE 0.9% 1000ML 1,000 ML IV SCH ×2 (04:15→06:52)
[2022-08-10] MEDS ORDERED: DKA GOAL RANGE 150-250 mg/dl ONE (04:21)
[2022-08-10 04:24] LABS: Appearance Urine Clear (Clear); Bilirubin Urine Negative (Negative); Blood Urine Trace (Negative); Color Urine Yellow; Glucose Urine UA 3+ (Negative); Ketones Urine Negative (Negative); Leukocyte Esterase Urine Negative (Negative); Nitrite Urine Negative (Negative); Protein Urine Negative (Negative); Specific Gravity Urine > 1.045 (1.000-1.030); Urobilinogen Urine Negative (Negative)
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
[2022-08-10] MEDS ORDERED: GLUCOSE 40% GEL 15 GM TUBE PO PRN (04:45)
[2022-08-10] MEDS ORDERED: CARBOHYDRATES FOR HYPOGLYCEMIA PO PRN (04:45)
[2022-08-10] MEDS ORDERED: GLUCOSE 10 TAB/TUBE PO PRN (04:45)
[2022-08-10] MEDS ORDERED: GLUCAGON FOR INJ 1 MG VIAL IM PRN (04:45)
[2022-08-10] MEDS ORDERED: DEXTROSE 50% 50 ML SYRINGE IV PRN (04:45)
[2022-08-10 04:54] LABS: Bacteria Urine Automated Negative (Negative); Epithelial Cell Urine Auto 0-5 /lpf (0-5); RBC Urine Automated 0-4 /hpf (0-4); WBC Urine Automated 0 /hpf (0-5)
[2022-08-10 05:54] LABS: BUN Creatinine Ratio 17.8 (10-20); Calcium 8.9 mg/dl (8.6-10.3); Est GFR (Non-African American) 99.2 ml/min; Phosphorus 3.4 mg/dl (2.5-4.9); Potassium 3.8 mmol/L (3.5-5.1)
[2022-08-10] MEDS ORDERED: PENDING D5 1/2NS+40mEq KCL IVF SCH (06:00)
[2022-08-10] MEDS ORDERED: PENDING 1/2NSS+40mEq KCL IVF SCH (06:00)
[2022-08-10] MEDS ORDERED: ACETAMINOPHEN 325 MG TAB PO STA (06:41)
[2022-08-10] MEDS ORDERED: ACETAMINOPHEN 325 MG TAB PO PRN (06:52)
[2022-08-10] MEDS ORDERED: GABAPENTIN 300 MG CAP PO PRN (06:52)
[2022-08-10] MEDS ORDERED: ONDANSETRON INJ 2 MG/ML 2 ML VIAL IV PRN (06:52)
[2022-08-10] MEDS ORDERED: HYDROCODONE/ACETAMOPHEN 5/325MG TAB PO PRN (06:52)
[2022-08-10] MEDS ORDERED: POTASSIUM CHLORIDE 40 MEQ in D5W AND 1/2NSS 1,000 ML IV SCH (07:15)
[2022-08-10] MEDS ORDERED: INSULIN ASPART PER UNIT CHARGE SC SCH ×2 (07:30→18:00)
[2022-08-10 07:31] LABS: Estimated Average Glucose 318 mg/dl; Hemoglobin A1C 12.7 % (4.5-5.6)
[2022-08-10] MEDS ORDERED: LANTUS PER UNIT CHARGE SQ STA ×2 (07:46→14:33)
[2022-08-10 07:51] LABS: BUN Creatinine Ratio 17.4 (10-20); Calcium 8.9 mg/dl (8.6-10.3); Creatinine Clr Calc Pharmacy 152.6 ml/min; Est GFR (Non-African American) 96.6 ml/min; Phosphorus 3.1 mg/dl (2.5-4.9); Potassium 3.3 mmol/L (3.5-5.1)
[2022-08-10] MEDS: HEPARIN SOD 5,000 UNIT/0.5 ML VIAL SQ SCH ×3 (08:00→21:11)
--- NOTE | 2022-08-10 08:05 | Hospitalist Progress Note ---
Date of Service August 10, 2022 Assessment & Plan (1) Hyperosmolar hyperglycemic state (HHS): (2) Chronic diastolic congestive heart failure: (3) CKD (chronic kidney disease): (4) HTN (hypertension): (5) Hyperlipidemia: (6) Type 2 diabetes mellitus: (7) Biventricular ICD (implantable cardioverter-defibrillator) in place: Admission and Anticipated Discharge Date Admission Date: August 10, 2022 Subjective Patient seen and evaluated at bedside this morning. Patient feels "a bit uneasy" but is unable to pinpoint what feels uncomfortable. Does endorse being hungry. No other symptoms at this time including CP, SOB, abdominal pain, nausea, vomiting, and diarrhea. Review of Systems Review of Systems: See HPI Physical Exam Physical Exam: Constitutional: well-appearing, no acute distress HEENT: MMM CV: regular rhythm, no murmur appreciated, extremities well-perfused, no LE edema Resp: CTABL, no wheezes/rales/rhonchi appreciated, no increased work of breathing GI: soft, nondistended, nontender, BS normoactive Neuro: alert, oriented, no focal neurologic deficit appreciated Results & Data Results & Data Vital Signs (Past 12 Hours) Vital Signs Temp Pulse Pulse Resp BP BP Pulse Ox 08/10/22 06:43 36.6 C 80 14 165/110 H 95 08/10/22 03:59 81 20 162/111 H 92 08/10/22 03:58 82 08/10/22 01:53 90 18 152/87 H 100 08/09/22 23:43 37.5 C 90 20 189/108 H 96 O2 Del Method 08/10/22 06:43 Room Air 08/10/22 03:59 Room Air 08/10/22 03:58 08/10/22 01:53 Room Air 08/09/22 23:43 Room Air (3) CKD (chronic kidney disease) Chronic kidney disease stage: unspecified stage Qualified Code(s): N18.9 - Chronic kidney disease, unspecified (4) HTN (hypertension) Hypertension type: unspecified Qualified Code(s): I10 - Essential (primary) hypertension (5) Hyperlipidemia Hyperlipidemia type: unspecified Qualified Code(s): E78.5 - Hyperlipidemia, unspecified (6) Type 2 diabetes mellitus 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 rodent exterminator insulin use: with residential use 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 complication status: with hyperglycemia Qualified Code(s): E11.65 - Type 2 diabetes mellitus with hyperglycemia; Z79.4 - extermination inspector (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
--- NOTE | 2022-08-10 08:35 | Electrocardiogram Report ---
Test Reason : Blood Pressure : / mmHG Vent. Rate : 086 BPM Atrial Rate : 086 BPM P-R Int : 162 ms QRS Dur : 184 ms QT Int : 482 ms P-R-T Axes : 005 -87 083 degrees QTc Int : 576 ms Poor data quality, interpretation may be adversely affected Atrial-sensed ventricular-paced rhythm Abnormal ECG When compared with ECG of 24-JAN-2022 06:07, Vent. rate has increased BY 25 BPM Confirmed by Julio Ocampo ([id number]) on 08/10/2022 8:34:49 AM Referred By: REFERRED SELF Confirmed By:Julio Ocampo
[2022-08-10] MEDS: METOPROLOL SUCC 50MG EXT REL TAB PO SCH (09:27)
[2022-08-10] MEDS: dilTIAZem HCL 180 MG CAPCR PO SCH (09:27)
[2022-08-10] MEDS: ATORVASTATIN 20 MG TAB PO SCH ×2 (09:27→21:18)
[2022-08-10] MEDS ORDERED: SODIUM CHLORIDE 0.45 % 1,000 ML IV SCH (11:00)
[2022-08-10] MEDS: POTASSIUM CHLORIDE 40 MEQ in SODIUM CHLORIDE 0.45 % 1,000 ML IV SCH ×3 (11:23→21:10)
[2022-08-10] MEDS: INSULIN ASPART PER UNIT CHARGE SC SCH ×4 (12:28→23:20)
--- NOTE | 2022-08-10 14:43 | Pharmacy Report ---
Pharmacy Glycemic Short Note 2 - Date of Service August 10, 2022 - Glycemic Short BSG Results (Last 24 hours): 08/09/22 08/10/22 08/10/22 23:59 00:07 02:18 Glucose 625 H* POC Glucose > 600 H* 457 H* 08/10/22 08/10/22 08/10/22 03:55 04:55 06:21 Glucose 350 H* POC Glucose 367 H* 236 H 08/10/22 08/10/22 08/10/22 06:40 07:07 07:16 Glucose 165 H POC Glucose 175 H 169 H 08/10/22 08/10/22 08/10/22 08:17 09:08 10:09 Glucose POC Glucose 254 H 217 H 222 H 08/10/22 08/10/22 08/10/22 11:15 12:19 13:15 Glucose POC Glucose 234 H 240 H 244 H 08/10/22 08/10/22 08/10/22 14:22 14:23 14:28 Glucose POC Glucose 338 H* 202 H 273 H OUTPATIENT ANTIDIABETIC REGIMEN: * Lantus 24 units BID, Novolog 16-20 units TID, 5-8 units HS, metformin 1000 mg BID * A1c 12.7% ASSESSMENT: * Patient admitted with initial BSG 625 mg/dL, anion gap 12, bicarb 22, pH 7.4. * Started on insulin infusion although this was promptly held as BSG decreased after 20 units of regular sq insulin in addition to infusion. * Dextrose containing fluids and infusion restarted at lower rate--> BSG trended back up into the 200s. * Given lantus dose this AM to assist with transition off of drip as gap had closed and patient with normal mentation, normal osmolarity * Patient ordered diet and dextrose removed from fluid, BSGs still elevated, set carb ratio. Will give additional dose of lantus. * Plan to d/c drip when BSG at goal and rate <2 ml/hr or held per protocol. PLAN FOR INPATIENT GLYCEMIC CONTROL: * Hold outpatient oral diabetes medications * Insulin infusion continues at this time * Basal insulin * Lantus 50 units x 1 this AM, additional 40 units this PM * Bolus insulin * NovoLog per scale ACHS or Q6hrs while NPO * Goal Range: Low 150 mg/dL - High 200 mg/dL * Insulin infusion- no current correction factor * Nutritional / Prandial insulin per carb ratio of 1 unit per 4 grams CHO consumed
[2022-08-10 14:53] LABS: BUN Creatinine Ratio 21.3 (10-20); Calcium 8.5 mg/dl (8.6-10.3); Creatinine Clr Calc Pharmacy 169.2 ml/min; Est GFR (African American) 120.7 ml/min; Est GFR (Non-African American) 104.2 ml/min; Potassium 4.9 mmol/L (3.5-5.1)
--- NOTE | 2022-08-10 15:00 | Communication Note ---
Date of Service: August 10, 2022 Patient seen and evaluated at bedside this morning. Patient feels "a bit uneasy" but is unable to pinpoint what feels uncomfortable. Does endorse being hungry. No other symptoms at this time including CP, SOB, abdominal pain, nausea, vomiting, and diarrhea. Constitutional: well-appearing, no acute distress HEENT: MMM CV: regular rhythm, no murmur appreciated, extremities well-perfused, no LE edema Resp: CTABL, no wheezes/rales/rhonchi appreciated, no increased work of breathing GI: soft, nondistended, nontender, BS normoactive Neuro: alert, oriented, no focal neurologic deficit appreciated Plan: Patient presents in HHS precipitated by dietary indiscretion the setting of patient not checking his BSG for a few weeks (2/2 broken glucometer) Initially was on NSS @ 150mL/hr (lower rate d/t history of HFpEF) and insulin gtt; has since been transitioned to basal/bolus insulin Pharmacy consulted, appreciate recommendations and regimen adjustments BSG has fallen to goal range; discontinue NPO status and advance diet as tolerated Patient mildly hypokalemic - potassium added to IVF hsTroponin elevated on admission (without chest pain) suspected 2/2 demand isc hemia; has since peaked and fallen; no further monitoring indicated in the absence of chest pain Rest of management as per admission H&P Candelario Amaya PGY-3 Resident Activity Tracking Resident Involvement: Resident Care Provided Care Provided: [facility] Medicine Addendum August 10, 2022 16:07 Resident Physician Supervision Note: I independently interviewed and examined the patient and verified the ramirez history and physical, reviewed labs and image studies and agree with resident findings and care plan. Blood glucose normalized. Still feeling significantly lethargic. monitor overnight and anticipate d/c home in am.
[2022-08-10] MEDS ORDERED: INSULIN INFUSION~PENDING ORDER SCH (16:00)
[2022-08-11] MEDS: INSULIN ASPART PER UNIT CHARGE SC SCH ×3 (04:06→12:11)
[2022-08-11] MEDS: POTASSIUM CHLORIDE 40 MEQ in SODIUM CHLORIDE 0.45 % 1,000 ML IV SCH ×2 (04:45→12:15)
[2022-08-11] MEDS: HEPARIN SOD 5,000 UNIT/0.5 ML VIAL SQ SCH ×2 (05:36→14:34)
[2022-08-11 07:19] LABS: Hematocrit (blood only) 44.8 % (42.0-52.0); Hemoglobin 16.1 g/dl (14.0-18.0); Mean Corpuscular Hemoglobin 29.5 pg (25.0-34.0); Mean Corpuscular Hgb Conc 35.9 g/dL (32.0-36.0); Mean Corpuscular Volume 82.1 fL (80.0-100.0); Mean Platelet Volume 11.5 fL (9.4-12.4); Platelet Count 155 K/uL (130-400); RDW Coefficient of Variation 13.2 % (11.5-14.5); RDW Standard Deviation 38.8 fL (36.4-46.3); Red Blood Count 5.46 M/uL (4.70-6.10); White Blood Count 6.04 K/ul (4.8-10.8)
[2022-08-11 07:45] LABS: Albumin Globulin Ratio 1.4 (0.9-2); Albumin Level 3.5 gm/dl (3.4-5.0); BUN Creatinine Ratio 22.1 (10-20); Bilirubin,Total 0.7 mg/dl (0.2-1.0); Calcium 8.3 mg/dl (8.6-10.3); Creatinine Clr Calc Pharmacy 177.7 ml/min; Est GFR (African American) 122.6 ml/min; Est GFR (Non-African American) 105.8 ml/min; Globulin 2.5 gm/dl (2.5-4.0); Magnesium 1.7 mg/dl (1.7-2.4); Phosphorus 3.2 mg/dl (2.5-4.9); Potassium 4.2 mmol/L (3.5-5.1)
[2022-08-11] MEDS: ATORVASTATIN 20 MG TAB PO SCH (08:06)
--- NOTE | 2022-08-11 08:06 | Discharge Summary ---
Date of Service August 11, 2022 Admission HPI Per Admitting Provider 51-year-old male past medical history significant for morbid obesity, hypertrophic cardiomyopathy with biventricular ICD, DM2, MEENU, chronic diastolic heart failure, CKD presented to the ER via personal vehicle (his mother was driving) due to ringing in his ears, headache and altered mental status. He was noted to have blood sugars in the 600s, given 20 units of regular insulin and an IV fluid bolus. CT head, CTA head/neck were performed without any acute abnormalities. Hospitalist service was consulted for hyperglycemia. On my interview patient reports he is on Lantus 24 units twice daily, metformin twice daily, and sliding scale insulin. However, he notes that his glucometer has been broken for the last several weeks so he has not been able to check his sugars. He denies any recent fevers or chills, abdominal pains, chest pains. No nausea or vomiting. Admission Exam Per Admitting Provider Constitutional: well developed and + morbidly obese; no acute distress Eyes: PERRL, conjunctivae normal, anicteric sclerae ENMT: external ear and nose normal, oropharynx normal Respiratory: normal respiratory effort, lungs clear to auscultation Cardiovascular: RRR, no murmur, no edema Gastrointestinal (Abdomen): normal bowel sounds, soft, nontender, no hepatosplenomegaly Protuberant abdomen Musculoskeletal: no cyanosis or clubbing, extremities motor strength 5/5 Skin: no rashes, warm and dry Neurologic: AAOx3, normal speech. Answers questions appropriately, though slowly at times. PERRLA, EOMI. Bilateral UE, LE, and face without sensory or motor deficits.. No pronator drift. No tremor. Psychiatric: A+Ox3, euthymic affect Principal Diagnosis hyperosmolar hyperglycemic state Discharge Exam General: Grossly A&O. NAD. Cooperative. HEENT: Atraumatic, normocephalic. EOMI Pulm: CTAB. -wheezes, -rales, -rhonchi. Symmetrical chest rise. No respiratory distress. Cardiac: RRR, -mrg. No BLE edema. Abdominal: Nontender, nondistended, soft. Discharge Data Allergies Allergy/AdvReac Type Severity Reaction Status Date / Time erythromycin base Allergy Severe Anaphylaxis Verified 08/10/22 02:57 Consultations 08/10/22 03:38 ED Decision to Admit Stat Ordered Studies Cardiac Enzymes 08/11/22 Range/Units 07:02 AST 32 (13-39) U/L CBC 08/11/22 Range/Units 07:02 WBC 6.04 (4.8-10.8) K/ul RBC 5.46 (4.70-6.10) M/uL Hgb 16.1 (14.0-18.0) g/dl Hct 44.8 (42.0-52.0) % Plt Count 155 (130-400) K/uL Comprehensive Metabolic Panel 08/10/22 08/11/22 Range/Units 14:18 07:02 Sodium 136 134 L (136-145) mmol/L Potassium 4.9 D 4.2 (3.5-5.1) mmol/L Chloride 105 104 (98-107) mmol/L Carbon Dioxide 28 25 (21-32) mmol/L BUN 17 17 (6-23) mg/dl Creatinine 0.80 0.77 (0.6-1.4) mg/dl Glucose 181 H 218 H (70-99(Fasting)) mg/dl Calcium 8.5 L 8.3 L (8.6-10.3) mg/dl AST 32 (13-39) U/L ALT 40 (7-52) U/L Alkaline Phosphatase 81 (34-104) U/L Total Protein 6.0 D (6.0-8.3) gm/dl Albumin 3.5 (3.4-5.0) gm/dl Intake and Output 08/10/22 08/11/22 08/11/22 22:59 06:59 14:59 Intake Total 1030.110 / 4161.041 2347.917 / 4161.041 935.417 / 935.417 Output Total 2 / 2 Balance 1030.110 / 4159.041 2345.917 / 4159.041 935.417 / 935.417 Intake: IV 1030.110 / 2761.041 947.917 / 2761.041 935.417 / 935.417 Insulin Regular 250 units In 8.027 / 48.124 Sodium Chloride 0.9% 247.5 ml @ 0 UNITS/HR IV .Q0M [facility] Rx#: [id number] Potassium Chloride 40 meq In 1022.083 / 1970.000 947.917 / 1970.000 935.417 / 935.417 Sodium Chloride 0.45 % 1,000 ml @ 125 mls/hr IV .Q8H10M [facility] Rx #:[id number] Oral 1400 / 1400 Output: # Bowel Movements 2 / 2 Other: # Unmeasured Voids 3 Weight 146.9 kg Weight Measurement Method Built in [facility] Head CT 08/09/22 23:56 Exam(s): CT HEAD Without Contrast EXAM: CT Head Without Intravenous Contrast CLINICAL HISTORY: Stroke. TECHNIQUE: Axial computed tomography images of the head/brain without intravenous contrast. CTDI is 43.31 mGy and DLP is 636.1 mGy-cm. Automated exposure control was utilized for the study. A dose lowering technique was utilized adhering to the principles of ALARA. COMPARISON: CT head 08/13/2019 FINDINGS: Brain: No intracranial hemorrhage, mass-effect or midline shift. No abnormal extra axial fluid. No evidence of acute infarct. Mild periventricular white matter hypodensities are most consistent with chronic microangiopathy. Ventricles: Unremarkable. No ventriculomegaly. Bones/joints: Unremarkable. No acute fracture. Soft tissues: Unremarkable. Sinuses: Unremarkable as visualized. No acute sinusitis. Mastoid air cells: Unremarkable as visualized. No mastoid effusion. IMPRESSION: No acute intracranial finding. Electronically signed by: Jessica Perez MD 08/10/22 04:04 AM Head CTA 08/09/22 23:56 Exam(s): CTA HEAD With Contrast IV Amt: 115 ML OPTIRAY 320 EXAM: CT Angiography Head With Intravenous Contrast CLINICAL HISTORY: Stroke. TECHNIQUE: Axial computed tomographic angiography images of the head with intravenous contrast. CTDI is 43.31 mGy and DLP is 636.1 mGy-cm. Automated exposure control was utilized for the study. A dose lowering technique was utilized adhering to the principles of ALARA. MIP reconstructed images were created and reviewed. CONTRAST: Patient received 115 ML OPTIRAY 320 of IV contrast COMPARISON: No relevant prior studies available. FINDINGS: Right internal carotid artery: No acute findings. Intracranial segment is patent with no significant stenosis. No aneurysm. Right anterior cerebral artery: Unremarkable. No occlusion or significant stenosis. No aneurysm. Right middle cerebral artery: Unremarkable. No occlusion or significant stenosis. No aneurysm. Right posterior cerebral artery: Unremarkable. No occlusion or significant stenosis. No aneurysm. Right vertebral artery: Unremarkable as visualized. Left internal carotid artery: No acute findings. Intracranial segment is patent with no significant stenosis. No aneurysm. Left anterior cerebral artery: Unremarkable. No occlusion or significant stenosis. No aneurysm. Left middle cerebral artery: Unremarkable. No occlusion or significant stenosis. No aneurysm. Left posterior cerebral artery: Unremarkable. No occlusion or significant stenosis. No aneurysm. Left vertebral artery: Unremarkable as visualized. Basilar artery: Unremarkable. No occlusion or significant stenosis. No aneurysm. IMPRESSION: No acute finding of the arteries of the head. Electronically signed by: Jessica Perez MD 08/10/22 04:07 AM Neck CTA 08/09/22 23:56 Exam(s): CTA NECK With Contrast IV Amt: 115 ML OPTIRAY 320 EXAM: CT Angiography Neck With Intravenous Contrast CLINICAL HISTORY: Stroke. TECHNIQUE: Routine carotid CT angiography protocol was performed with intravenous contrast. NASCET criteria using the distal ICAs for comparison were used for evaluation of stenoses. CTDI is 43.31 mGy and DLP is 636.1 mGy-cm. Automated exposure control was utilized for the study. A dose lowering technique was utilized adhering to the principles of ALARA. MIP reconstructed images were created and reviewed. CONTRAST: Patient received 115 ML OPTIRAY 320 of IV contrast COMPARISON: None. FINDINGS: VASCULATURE: Right common carotid artery: Unremarkable. No occlusion or significant stenosis. No dissection. Right internal carotid artery: Unremarkable. Extracranial segment is patent with no occlusion or significant stenosis. No dissection. Right external carotid artery: Unremarkable. No occlusion. Right vertebral artery: Unremarkable. No occlusion or significant stenosis. No dissection. Left common carotid artery: Unremarkable. No occlusion or significant stenosis. No dissection. Left internal carotid artery: Unremarkable. Extracranial segment is patent with no occlusion or significant stenosis. No dissection. Left external carotid artery: Unremarkable. No occlusion. Left vertebral artery: Unremarkable. No occlusion or significant stenosis. No dissection. NECK: Bones/joints: There are degenerative changes of the spine. No fracture. Soft tissues: Unremarkable. Lung apices: Clear. CAROTID STENOSIS REFERENCE USING NASCET CRITERIA: % ICA stenosis = (1 - narrowest ICA diameter/diameter of distal cervical ICA) x 100. Mild - <50% stenosis. Moderate - 50-69% stenosis. Severe - 70-94% stenosis. Near occlusion - 95-99% stenosis. Occluded - 100% stenosis. IMPRESSION: No acute finding of the arteries of the neck pain. Electronically signed by: Jessica Perez MD 08/10/22 04:09 AM Diabetes Follow up Diabetes Follow-up Needed for HgbA1c >9% Hospital Course (1) Hyperosmolar hyperglycemic state (HHS): 51-year-old male with past medical history of morbid obesity, hypertrophic cardiomyopathy with biventricular ICD, DM2, MEENU, chronic diastolic heart failure, CKD presented with tinnitus, headache and altered mental status in the context of BSGs in the 600s. HHS, resolved -Initial presentation with mild metabolic encephalopathy, AG 12, required brief use of insulin drip. CTA head/neck and CT head w/o acute findings. Patient reportedly started requiring insulin 2 years ago. He has had poor control of his BSG's ever since. Denies medication adherence issues. Per last years notes, he was on max metformin, Januvia, and insulin; the Januvia was changed to Trulicity. Patient has been off the Trulicity for months and does not know why it was discontinued. Per patient, he takes max metformin, 20 units of Lantus twice a day (24u BID prescribed), and 16 to 20 units of NovoLog with each meal (ends up being 3-4 times a day) (Rx is written as 16-20U TIDM and 5-8U HS). On this regimen, he has had sugars consistently 3-500s, and even higher on occasion. He reports good hypoglycemic awareness. A1c this admission was 12.7 (9.8-11.6 in the past 2 years). Upon discharge, he is instructed to increase his Lantus to 30 units twice a day. The NovoLog and metformin are unchanged. -Please adjust Lantus as needed, may need further increase. -Recommend adding third diabetes agent, such as Trulicity or Ozempic. Renal function stable (Cr 0.77). -Recommend referral to certified breastfeeding educator/dietitian. Hospital receptionist airline lounge also tasked w/ assisting w/ this. Demand ischemia -Hstrop peaked at 72.6 Chronic diastolic congestive heart failure, hypertrophic cardiomyopathy History of, on prn Lasix 80mg BID PO prn at home given hx of severe exacerbations. Has bi-V ICD. 01/22/22 EF w/ normal LVEF, however w/ evidence of dilated right ventricle with mildly reduced right ventricular systolic function. Close monitoring of fluid status, and low-sodium diet when able to eat once BSG in goal range. -Counseled patient to notify pcp if needing more than 2-3 doses of furosemide and to start w/ lower 40mg dose Type 2 diabetes mellitus See above. Sleep apnea -Continue qHS CPAP. Patient states that he is waiting for/needs updated sleep study. To follow-up with PCP. Chronic back pain -Continue home prn pain regimen. Patient was full code this admission. (2) Chronic diastolic congestive heart failure: (3) CKD (chronic kidney disease): (4) HTN (hypertension): (5) Hyperlipidemia: (6) Type 2 diabetes mellitus: (7) Biventricular ICD (implantable cardioverter-defibrillator) in place: Total Time Total Time Spent Total Time Spent (In Minutes): See attending documentation. Discharge Plan Discharge Items Patient Disposition: Home - Self-Care Reason For Visit: [facility] Discharge Diagnosis: hyperosmolar hyperglycemic state Activity: Per Instructions section Non-emergency contact: Primary Care Provider Call non-emergency contact if: you have any medication questions, your symptoms worsen and you have a fever Follow-up/Referrals: Joaquin Ritter, [Primary Care Provider] - (Hospital discharge follow-up within 1 week. [employer] WILL CALL YOU SATURDAY OR SATURDAY WITH THE DATE/TIME OF YOUR FOLLOW UP APPT WITH DR RITTER.) Diet: Carb Consistent or DM2 and Low Sodium (2gm) Addtl Attending Provider Instructions: Hi Mr. Connolly, You admitted to [facility] for a condition related to high blood sugars. You're placed on the insulin drip and transition back to insulin injections. Your home Lantus will be increased from 20 units twice a day (what you reported taking) to 30 units twice a day. He reported taking 16 to 20 units of NovoLog with each meal which ends up being 3-4 times a day. This will be unchanged. Please continue the metformin. I recommend talking to your PCP to get back on a third diabetes medication such as Trulicity. Please continue checking your blood sugars 3 times a day and additionally as needed such as when you are lightheaded. Your dose of Lantus will probably need further adjustment. Please follow with your PCP closely and message him with any concerns. For example, after adding a third medication such as Trulicity, your sugars may become lower. I also recommend talking to your PCP about referral to a certified breastfeeding educator/dietitian. This is separate from the energy management specialist. We talked about your as needed furosemide. The 80 mg is a very high dose. We discussed starting with 40 mg if needed and notifying your primary care doctor if you're needing more than a few doses as this medication can stress your kidneys. Please follow-up with your primary care doctor within 1 week for hospital discharge follow-up. If you have any new or worsening symptoms (fevers chills, shortness of breath, others), please contact your PCP. Visit the nearest ER if urgent symptoms. Pending Studies at Discharge: No Stand-Alone Forms: [facility], Smoking Cessation Medications and DC Order Prescriptions: Continued diltiazem HCl 360 mg capsule,extended release 24hr 360 mg PO DAILY Qty: 90 3RF hydrocodone-acetaminophen 5-325 mg tablet 1 tab PO DAILY PRN (Reason: Pain) potassium chloride 20 mEq Tablet Extended Release 20 meq PO QAM PRN (Reason: when taking lasix) metoprolol succinate 100 mg tablet extended release 24 hr 100 mg PO QAM metformin 1,000 mg tablet 1,000 mg PO BID insulin aspart U-100 [Novolog FlexPen U-100 Insulin] 100 unit/mL (3 mL) insulin pen 16 - 20 unit SUBCUT TIDM insulin aspart U-100 [Novolog FlexPen U-100 Insulin] 100 unit/mL (3 mL) insulin pen 5 - 8 unit SUBCUT HS furosemide 80 mg tablet 80 mg PO BID17 PRN (Reason: Fluid Retention) gabapentin 300 mg capsule 300 mg PO HS PRN (Reason: Back Pain) atorvastatin 40 mg tablet 20 mg PO AMPM Changed insulin glargine [Lantus Solostar U-100 Insulin] 100 unit/mL (3 mL) insulin pen 30 unit subcut AMHS Qty: 15 2RF Discharge Orders: Discharge Order (Routine); Ordered 08/11/22 Ordered By: Brian Nassar/Other Patient Handouts: High Blood Sugar (Hyperglycemia), Managing Type 2 Diabetes, Diabetes: Sick-Day Plan, Diabetes: Meal Planning Admission Data Admit Date/Time: 08/10/22 04:48 Attending Provider: Radha Garcia Admit Provider: Riya Peters Primary Care Provider: Joaquin Ritter Other Providers: Riya Peters ; [facility] Other Interventions: Discharge Summary Assessment (RN) Last Done: 08/11/22 15:46 Supervising Physician Co-Signing Physician Notes Resident Physician Supervision Note: I independently interviewed and examined the patient and verified the ramirez history and physical, reviewed labs and image studies and agree with resident findings and care plan. Resident Activity Tracking Resident Involvement: Resident Care Provided Care Provided: Adult Hospital Medicine
[2022-08-11] MEDS: dilTIAZem HCL 180 MG CAPCR PO SCH (08:07)
[2022-08-11] MEDS: METOPROLOL SUCC 50MG EXT REL TAB PO SCH (08:07)
[2022-08-11] MEDS ORDERED: LANTUS PER UNIT CHARGE SQ SCH (09:00)
--- NOTE | 2022-08-11 13:08 | Pharmacy Report ---
Pharmacy Glycemic Short Note 2 - Date of Service August 11, 2022 - Glycemic Short BSG Results (Last 24 hours): 08/10/22 08/10/22 08/10/22 13:15 14:18 14:22 Glucose 181 H POC Glucose 244 H 338 H* 08/10/22 08/10/22 08/10/22 14:23 14:28 15:22 Glucose POC Glucose 202 H 273 H 119 H 08/10/22 08/10/22 08/10/22 15:53 17:00 18:04 Glucose POC Glucose 107 H 149 H 201 H 08/10/22 08/10/22 08/11/22 20:15 23:08 01:59 Glucose POC Glucose 179 H 295 H 159 H 08/11/22 08/11/22 08/11/22 04:00 07:02 07:05 Glucose 218 H POC Glucose 125 H 205 H 08/11/22 11:29 Glucose POC Glucose 272 H OUTPATIENT ANTIDIABETIC REGIMEN: * Lantus 24 units BID, Novolog 16-20 units TID, 5-8 units HS, metformin 1000 mg BID * A1c 12.7% ASSESSMENT: 08/11/22 * Patient's BSGs after insulin infusion were discontinued was 110/107/149 (checked every 2 hours after insulin infusion d/c'ed) then 177 at HS. Overnight BSGs were 159-128 mg/dL with fasting of 200 mg/dL. * A basal dose of 90 units was given yesterday This represents 0.6 units/kg. To prevent stacking, will start with 35 units BID (total of 70 units or weight- based stress of 3). * Will tighten Novolog to tighter than weight-based stress of 3 since giving less Lantus. BACKGROUND * Patient admitted with initial BSG 625 mg/dL, anion gap 12, bicarb 22, pH 7.4. * Started on insulin infusion although this was promptly held as BSG decreased after 20 units of regular sq insulin in addition to infusion. * Dextrose containing fluids and infusion restarted at lower rate--> BSG trended back up into the 200s. * Given lantus dose this AM to assist with transition off of drip as gap had closed and patient with normal mentation, normal osmolarity * Patient ordered diet and dextrose removed from fluid, BSGs still elevated, set carb ratio. Will give additional dose of lantus. * Plan to d/c drip when BSG at goal and rate <2 ml/hr or held per protocol. PLAN FOR INPATIENT GLYCEMIC CONTROL: * Hold outpatient oral diabetes medications * Insulin infusion continues at this time * Basal insulin * Lantus 35 units SQ BID * Bolus insulin * NovoLog per scale ACHS or Q6hrs while NPO * Goal Range: Low 120 mg/dL - High 160 mg/dL * Correction Factor 8 mg/dL/unit * Nutritional / Prandial insulin per carb ratio of 1 unit per 3 grams CHO consumed
== END 2022-08-11 16:29 | disposition home or self-care (01) | DRG 637 ==
LOC: ED 23:42 → 2S 08-10 04:48 → SUATTDRO 08-10 04:48 → 2S 08-10 06:33

== ENCOUNTER 2022-08-17 20:38 | Inpatient (IN) ==
[2022-08-17] MEDS ORDERED: methylPREDNISolone 125 MG/2 ML VIAL IV STA (21:20)
[2022-08-17] MEDS ORDERED: ALBUT/IPRATROP 3MG/0.5MG NEB 3 ML VIAL NEB STA (21:20)
[2022-08-17] MEDS ORDERED: methylPREDNISolone 125 MG/2 ML VIAL ONE (21:34)
[2022-08-17 21:39] LABS: Basophils # (auto) 0.04 K/uL (0-0.2); Basophils % (auto) 0.6 %; Eosinophils # (auto) 0.13 K/uL (0-0.50); Eosinophils % (auto) 1.8 %; Hematocrit (blood only) 48.4 % (42.0-52.0); Hemoglobin 17.2 g/dl (14.0-18.0); Immature Granulocytes # (auto) 0.04 K/uL (0.01-0.20); Immature Granulocytes % (auto) 0.6 %; Lymphocytes # (auto) 0.64 K/uL (1.2-3.4); Lymphocytes % (auto) 8.9 %; Mean Corpuscular Hemoglobin 29.6 pg (25.0-34.0); Mean Corpuscular Hgb Conc 35.5 g/dL (32.0-36.0); Mean Corpuscular Volume 83.3 fL (80.0-100.0); Mean Platelet Volume 11.3 fL (9.4-12.4); Monocytes # (auto) 0.45 K/uL (0.11-0.59); Monocytes % (auto) 6.3 %; Neutrophils % (auto) 81.8 %; Platelet Count 202 K/uL (130-400); RDW Standard Deviation 39.2 fL (36.4-46.3); Red Blood Count 5.81 M/uL (4.70-6.10)
[2022-08-17 21:40] LABS: Alanine Aminotransferase 47 U/L (7-52); Albumin Globulin Ratio 1.4 (0.9-2); Albumin Level 4.1 gm/dl (3.4-5.0); Alkaline Phosphatase 92 U/L (34-104); Anion Gap 9 (3-11); Aspartate Aminotransferase 35 U/L (13-39); BUN Creatinine Ratio 17.3 (10-20); Bilirubin,Total 0.6 mg/dl (0.2-1.0); Blood Urea Nitrogen 19 mg/dl (6-23); Calcium 9.3 mg/dl (8.6-10.3); Carbon Dioxide 25 mmol/L (21-32); Chloride 101 mmol/L (98-107); Est GFR (African American) 90.2 ml/min; Est GFR (Non-African American) 77.9 ml/min; Globulin 2.9 gm/dl (2.5-4.0); Glucose 263 mg/dl (70-99(Fasting)); Potassium 4.1 mmol/L (3.5-5.1); Sodium 135 mmol/L (136-145)
[2022-08-17 21:53] LABS: Partial Thromboplastin Time 26.6 Seconds (21.0-31.0); Prothrombin Time 10.6 Seconds (9.0-12.0); Troponin I High Sensitivity 90.4 pg/ml (0-20)
[2022-08-17] MEDS ORDERED: ACETAMINOPHEN 325 MG TAB PO STA (22:33)
[2022-08-17] MEDS ORDERED: ONDANSETRON INJ 2 MG/ML 2 ML VIAL IV STA (22:33)
[2022-08-17 22:46] LABS: HCO3 VBG 27 mmol/L; Oxygen Saturation VBG 63.8 %; PCO2 VBG 44 mmHg (38-50); PO2 VBG 34 mmHg
[2022-08-17 22:47] LABS: Influenza A virus by PCR Negative (Neg); Influenza B virus by PCR Negative (Neg); RSV by PCR Negative (Neg); SARS CoV2 RNA(COVID-19) Ceph NEGATIVE (Negative)
--- NOTE | 2022-08-17 22:55 | XRay Report ---
SINGLE VIEW CHEST CLINICAL HISTORY: Atypical chest pain. FINDINGS: An AP, portable, upright chest radiograph is compared to study dated 01/22/2022. The patient is status post midline sternotomy. A 3-lead cardiac AICD is unchanged in position. The heart is enla rged. The pulmonary vasculature is noncongested. Chronic interstitial thickening is similar previous. The lungs and pleural spaces are clear noting bibasilar scarring/atelectasis. No pneumothorax is see n. The skeletal structures are osteopenic. The bony thorax is grossly intact. IMPRESSION: 1. Cardiomegaly and AICD without radiographic evidence of congestive failure. 2. No airspace consolidation or large pleural effusion is identified. ACT 112: Negative or not required by law. Electronically signed by: Nichoals Vasquez M.D. 08/17/2022 10:54 PM
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
[2022-08-18] MEDS ORDERED: GLUCAGON FOR INJ 1 MG VIAL SQ PRN (01:48)
[2022-08-18] MEDS ORDERED: PHARMACY GLYCEMIC MGMT CONSULT PRN (01:48)
[2022-08-18] MEDS ORDERED: ONDANSETRON INJ 2 MG/ML 2 ML VIAL IV PRN (01:48)
[2022-08-18] MEDS ORDERED: GLUCOSE 40% GEL 15 GM TUBE PO PRN (01:48)
[2022-08-18] MEDS ORDERED: CARBOHYDRATES FOR HYPOGLYCEMIA PO PRN (01:48)
[2022-08-18] MEDS ORDERED: GLUCOSE 10 TAB/TUBE PO PRN (01:48)
[2022-08-18] MEDS ORDERED: ACETAMINOPHEN 325 MG TAB PO PRN ×2 (01:48→13:35)
[2022-08-18] MEDS ORDERED: DEXTROSE 50% 50 ML SYRINGE IV PRN (01:48)
[2022-08-18] MEDS ORDERED: GABAPENTIN 300 MG CAP PO PRN (01:48)
[2022-08-18] MEDS ORDERED: LANTUS PER UNIT CHARGE SQ ONE ×2 (02:10→11:45)
[2022-08-18] MEDS: INSULIN ASPART PER UNIT CHARGE SC SCH ×4 (03:47→17:24)
[2022-08-18] MEDS: ATORVASTATIN 20 MG TAB PO SCH ×2 (03:47→08:49)
--- NOTE | 2022-08-18 03:48 | Ultrasound Report ---
Exam(s): US LIVER EXAM: US Abdomen Limited CLINICAL HISTORY: Reason for exam: RUQ Pain. TECHNIQUE: Real-time ultrasound of the abdomen with image documentation. COMPARISON: January 28, 2020 FINDINGS: Liver: The liver measures 17.5 cm with possible mild fatty infiltration. No focal liver lesion is seen. The portal vein is patent with normal hepatopetal flow. Gallbladder: The gallbladder is normally distended. No gallstones, wall thickening, or surrounding fluid is seen. Common bile duct: The common bile duct is nondilated measuring 7 mm. Pancreas: The pancreas is mostly obscured. Kidneys: The right kidney measures 13 cm with normal appearance. No hydronephrosis. IMPRESSION: No acute findings in the visualized abdomen. Electronically signed by: Sammy Carrillo MD 08/18/22 03:48 AM
[2022-08-18] MEDS ORDERED: ENOXAPARIN INJ 40 MG/0.4 ML SYR SQ SCH (06:00)
[2022-08-18 07:29] LABS: Hematocrit (blood only) 47.1 % (42.0-52.0); Hemoglobin 16.7 g/dl (14.0-18.0); Mean Corpuscular Hemoglobin 29.4 pg (25.0-34.0); Mean Corpuscular Hgb Conc 35.5 g/dL (32.0-36.0); Mean Corpuscular Volume 82.9 fL (80.0-100.0); Mean Platelet Volume 11.7 fL (9.4-12.4); Platelet Count 202 K/uL (130-400); RDW Coefficient of Variation 12.7 % (11.5-14.5); RDW Standard Deviation 38.7 fL (36.4-46.3); Red Blood Count 5.68 M/uL (4.70-6.10); White Blood Count 5.85 K/ul (4.8-10.8)
--- NOTE | 2022-08-18 07:39 | Electrocardiogram Report ---
Test Reason : Blood Pressure : / mmHG Vent. Rate : 117 BPM Atrial Rate : 117 BPM P-R Int : 082 ms QRS Dur : 172 ms QT Int : 362 ms P-R-T Axes : 088 -85 082 degrees QTc Int : 504 ms Atrial-sensed ventricular-paced rhythm Abnormal ECG When compared with ECG of 10-AUG-2022 00:00, Vent. rate has increased BY 31 BPM Confirmed by Lucio Millard ([id number]) on 08/18/2022 7:39:28 AM Referred By: REFERRED SELF Confirmed By:Sonny Millard
[2022-08-18 07:50] LABS: Albumin Globulin Ratio 1.5 (0.9-2); Bilirubin,Total 0.8 mg/dl (0.2-1.0); Creatinine Clr Calc Pharmacy 142.6 ml/min; Est GFR (African American) 106.4 ml/min; Est GFR (Non-African American) 91.8 ml/min; Globulin 2.7 gm/dl (2.5-4.0); Potassium 4.5 mmol/L (3.5-5.1); Total Protein 6.7 gm/dl (6.0-8.3)
[2022-08-18 07:55] LABS: Troponin I High Sensitivity 55.5 pg/ml (0-20)
--- NOTE | 2022-08-18 08:17 | Hospitalist Progress Note ---
Date of Service August 18, 2022 Assessment & Plan (1) Shortness of breath: Plan: Pt is a 51-year-old male past medical history significant for morbid obesity, hypertrophic cardiomyopathy with biventricular ICD, uncontrolled DM2, MEENU, chronic diastolic heart failure, CKD presented to the ER via personal vehicle for the chief complaint difficulty breathing. Patient reports that this is an issue since he had his open heart surgery but this is the first time that is caused shortness of breath. He was admitted to the hospital due to elevated troponin and was admitted for observation in the setting of right-sided chest pain. Patient is hemodynamically stable and overall doing well. -Admit to [facility] with telemetry -Chest x-ray ultimately benign with no acute pathology noted. -Suspect shortness of breath is a combination of the pain he is experiencing, body habitus, possibly a component of chronic diastolic heart failure as well -Not experiencing hypoxia at this time and is stable at room air, no Lasix to be given at this time. -Supplemental oxygen as needed -Viral panel negative -Patient did receive DuoNeb in the ED which seemed to improve his symptoms -We will hold off additional doses for now as he does not have any wheezing or history of COPD -Additional work-up as below (2) Right-sided chest pain: Plan: - Difficult to determine etiology -Seems to be a chronic issue that comes and goes since patient had open heart surgery per history -With nausea and dry heaving today and symptoms worsening after eating, will evaluate further with right upper quadrant ultrasound to evaluate gallbladder disease -General surgery consult if cholecystitis is a component -Otherwise suspect pleuritic or myofascial component of chest pain, unlikely to be cardiac (3) Elevated troponin: Plan: -Suspect it is multifactorial in setting of demand ischemia and CKD. -Trend troponin until peak -No anterior chest pain or referred pain to neck or arm -Low suspicion for ACS at this time -Echocardiogram in the morning (4) CKD (chronic kidney disease): Plan: -Renally dose medications, component of elevated troponin as above (5) HTN (hypertension): Plan: -Continue diltiazem and metoprolol (6) Biventricular ICD (implantable cardioverter-defibrillator) in place: Plan: -Noted (7) Chronic diastolic congestive heart failure: Plan: - Continue metoprolol -Lasix as needed for vascular congestion and possibly hypoxia if it were to arise (8) Type 2 diabetes mellitus: Plan: - Last A1c greater than 12 indicating uncontrolled diabetes -Basal bolus with sliding scale -Pharmacy glycemic consult placed, appreciate recommendations Plan DVT Proph: Lovenox (GFR acceptable) Diet: Heart Healthy, DM2 Dispo: Admit to med surg with tele Code Status: Full Code Admission and Anticipated Discharge Date Admission Date: August 18, 2022 Results & Data Results & Data Vital Signs (Past 12 Hours) Vital Signs Temp Pulse Pulse Resp BP BP BP 08/18/22 07:58 36.7 C 87 18 145/83 H 08/18/22 05:48 106/56 L 08/18/22 03:52 37.0 C 90 18 97/65 L 08/18/22 02:05 77 08/18/22 01:49 08/18/22 01:49 37.1 C 97 H 18 135/84 08/17/22 22:55 100 H 18 08/17/22 21:10 108 H 08/17/22 22:00 106 H 16 08/17/22 21:30 104 H 16 08/17/22 21:02 111 H 16 08/17/22 21:02 139/81 08/17/22 21:00 105 H 18 08/17/22 21:04 08/17/22 20:41 36.9 C 119 H 20 165/73 H Pulse Ox O2 Del Method 08/18/22 07:58 93 Room Air 08/18/22 05:48 08/18/22 03:52 93 Room Air 08/18/22 02:05 08/18/22 01:49 Room Air 08/18/22 01:49 94 Room Air 08/17/22 22:55 96 Room Air 08/17/22 21:10 08/17/22 22:00 98 08/17/22 21:30 94 08/17/22 21:02 95 08/17/22 21:02 08/17/22 21:00 93 08/17/22 21:04 94 Room Air 08/17/22 20:41 96 Room Air (4) CKD (chronic kidney disease) Chronic kidney disease stage: unspecified stage Qualified Code(s): N18.9 - Chronic kidney disease, unspecified (5) HTN (hypertension) Hypertension type: unspecified Qualified Code(s): I10 - Essential (primary) hypertension (8) Type 2 diabetes mellitus 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 terminal supervisor insulin use: with mcc use 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 complication status: with hyperglycemia Qualified Code(s): E11.65 - Type 2 diabetes mellitus with hyperglycemia; Z79.4 - USP (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
[2022-08-18] MEDS ORDERED: METOPROLOL SUCC 50MG EXT REL TAB PO SCH (09:00)
[2022-08-18] MEDS ORDERED: dilTIAZem HCL 180 MG CAPCR PO SCH (09:00)
--- NOTE | 2022-08-18 09:37 | XCELERA ---
[id number]
[2022-08-18] MEDS ORDERED: INSULIN HUMAN REGULAR PER UNIT 6 UNITS in SYRINGE 5.94 ML IV ONE (12:00)
--- NOTE | 2022-08-18 14:52 | Pharmacy Report ---
Pharmacy Glycemic Short Note 2 - Date of Service August 18, 2022 - Glycemic Short BSG Results (Last 24 hours): 08/17/22 08/18/22 08/18/22 20:51 03:40 06:36 Glucose 263 H 423 H* POC Glucose 380 H* 08/18/22 08/18/22 11:31 11:33 Glucose POC Glucose 306 H* 349 H* OUTPATIENT ANTIDIABETIC REGIMEN: * Lantus 30 units SQ BID * Novolog 16-20 units TID with meals, 5-8 units at HS * Metformin 1000 mg PO BID * A1c = 12.7% - 08/09/22 ASSESSMENT: * Hollis is a 51 yo T2DM who presented with difficulty breathing. PMH significant for morbid obesity, hypertrophic cardiomyopathy with biventricular ICD, uncontrolled DM2, MEENU, chronic diastolic heart failure, CK. He was given a one time dose of methylprednisolone 125 mg IV. * Severe hyperglycemia likely secondary to steroid administration on top of bas fausto hyperglycemia. * Of note, 08/17 evening Lantus dose was administered late (~0400), therefore AM dose was delayed this morning. Will enter Lantus orders to be dosed per BSG scale until insulin needs are better known. * Severe hyperglycemia persisted at lunchtime, BSG 349 mg/dL. Patient administered an IV regular insulin bolus. PLAN FOR INPATIENT GLYCEMIC CONTROL: * Hold outpatient oral diabetes medications * Basal insulin * Lantus 30-40 units SQ BID (based on BSG) * Bolus insulin * NovoLog per scale ACHS or Q6hrs while NPO * Goal Range: Low 110 mg/dL - High 140 mg/dL * Correction Factor: 10 mg/dL/unit * Nutritional / Prandial insulin per carb ratio of 1 unit per 3 grams CHO consumed
--- NOTE | 2022-08-18 16:02 | Discharge Summary ---
Date of Service August 18, 2022 Admission HPI Per Admitting Provider Pt is a 51-year-old male past medical history significant for morbid obesity, hypertrophic cardiomyopathy with biventricular ICD, uncontrolled DM2, MEENU, chronic diastolic heart failure, CKD presented to the ER via personal vehicle for the chief complaint difficulty breathing. Reports that is progressively been getting worse over the course the day and seem to exacerbated in the afternoon. Patient reports that he thought it may be due to his heart failure which she has had difficulties with in the past but typically whenever that happens, he typically swallows in his upper and lower extremities which he reports he is not currently. He notes that the shortness of breath he feels is mostly due to right lower lateral rib/chest pain. In addition to his breathing difficulties, he is also states he has had some nausea and dry heaving today as well which started after lunch. No active vomiting. He was recently admitted to the hospital for HHS. Patient otherwise denies any other symptoms at this time. Reports typical bowel movements for him that are solid and without any blood per rectum. Patient reports that he did smoke previously but quit back in 1993. No history of asthma. Otherwise no other complaints at this time. Admission Exam Per Admitting Provider Constitutional: well developed, + obese and cooperative; no acute distress Eyes: + anicteric sclerae Neck: normal visual inspection and + thick neck Respiratory: normal respiratory effort Shallow breaths Cardiovascular: Rate/Rhythm: regular rate and regular rhythm Extremities: no edema Gastrointestinal (Abdomen): Inspection/Auscultation: normal bowel sounds Percussion/Palpation: + abdomen tender (RUQ) and abdomen soft Musculoskeletal: Head/Neck/Chest: normocephalic and head atraumatic Skin: no rashes, warm and dry Neurologic: moves all extremities Psychiatric: A+Ox3, euthymic affect Principal Diagnosis right rib somatic dysfunction Discharge Exam Constitutional NAD. Obese. Vitals WNL. Cardiovascular RRR. No murmur noted. No LE edema. Gastrointestinal (Abdomen) Soft, nondistended, non tender. +BS. No masses noted. Exam limited by body habitus. Musculoskeletal Reproducible right rib pain with deep palpation and pt inspiration. Right exhalation dysfunction. Psychiatric Alert and oriented. Mood and affect congruent. Discharge Data Allergies Allergy/AdvReac Type Severity Reaction Status Date / Time erythromycin base Allergy Severe Anaphylaxis Verified 08/10/22 02:57 Consultations 08/17/22 23:38 ED Decision to Admit Stat Ordered Studies 08/18/22 00:28 US RUQ [US liver] Urgent IMPRESSION: No acute findings in the visualized abdomen. CXR 08/17/2022 IMPRESSION: 1. Cardiomegaly and AICD without radiographic evidence of congestive failure. 2. No airspace consolidation or large pleural effusion is identified. Hospital Course (1) Somatic dysfunction of right side of chest wall: Pt is a 51 yo male with complex PMH significant for morbid obesity, hypertrophic cardiomyopathy with biventricular ICD, uncontrolled DM2, MEENU, chronic diastolic heart failure, and CKD presenting to the ER for difficulty breathing in association with right sided chest/rib pain. Right rib pain secondary to somatic dysfunction - Patient reports that this is an issue since he had his open heart surgery but recently exacerbated most likely d/t recent onset of cough (viral panel neg) - CXR neg - recommend outpatient f/u with DO/chiropractor to further address pain through manipulative therapies - also educated pt on use of Voltaren gel to help with pain relief Elevated troponin - Suspect it is multifactorial in setting of demand ischemia and CKD - troponin peaked and downtrended - echo significant for LVH w/ normal EF CKD - Renally dose medications, component of elevated troponin as above HTN - Continue diltiazem and metoprolol - BP stable during hospitalization Chronic diastolic congestive heart failure - Continue metoprolol - no lasix necessary during hospitalization Uncontrolled type 2 diabetes mellitus - Last A1c greater than 12 - Basal bolus with sliding scale while hospitalized; pt's blood sugars elevated up to 423, most likely related to uncontrolled DM in conjunction with 125 mg dose of solumedrol - pt to resume outpatient DM regimen upon discharge; however, he will require close follow up to change his insulin regimens to control his DM half-way (2) Elevated troponin: (3) CKD (chronic kidney disease): (4) HTN (hypertension): (5) Biventricular ICD (implantable cardioverter-defibrillator) in place: (6) Chronic diastolic congestive heart failure: (7) Type 2 diabetes mellitus: Plan DVT Proph: Lovenox (GFR acceptable) Diet: Heart Healthy, DM2 Dispo: home Code Status: Full Code Total Time Total Time Spent Total Time Spent (In Minutes): <30 Discharge Plan Discharge Items Patient Disposition: Home - Self-Care Reason For Visit: SOB Discharge Diagnosis: right rib somatic dysfunction Activity: Resume your previous activity Non-emergency contact: Primary Care Provider Call non-emergency contact if: you have any medication questions, your symptoms worsen and your pain is not controlled Follow-up/Referrals: Rosita Rubin DO [Resident] - PCP,NO [Primary Care Provider] - Diet: Carb Consistent or DM2 Addtl Attending Provider Instructions: You were admitted to the hospital for evaluation of right sided pain in association with shortness of breath. An ultrasound of your heart was performed which showed some thickening of your left ventricle (which pumps blood to the re st of your body). The pumping action of your heart was within normal limits. An EKG that looks at the electrical activity of your heart did not show any signs of a heart attack. It is most likely that your pain is related to a dysfunction of your ribs on that side. In order to help with this, it is recommended that you see a DO physician or chiropractor for further manipulation treatment to help. Deep breathing exercises will also be helpful. You should also try applying Voltaren gel to the area 3-4 times per day for the next 3-4 days. This may help relieve some of your pain as well. It was also noted during your hospitalization that your blood sugars were elevated. You should continue to follow with your PCP/inside sales lead to address these high blood sugars with possible changes in recommendations to your insulin regimen. A discharge summary will be sent to your primary care physician to ensure continuity of care. Please bring this discharge summary with you to your next office appointment so that your provider can review it at that time. Medications: Your medication list has been reviewed and reconciled upon discharge to ensure accuracy and continuity of care. An updated list of all your medications is included with your hospital discharge paperwork. Please review this list closely and make note of any changes to your medications. - No changes were made to your home medications. Follow up appointments: - Make a follow up appointment with your PCP within the next week. It is very important that you follow up with them shortly after discharge from the hospital. - Keep all of your follow up appointments as already scheduled. If you cannot make an appointment, notify your provider. CONTACT YOUR PRIMARY CARE PROVIDER if you experience any of the following: - Difficulty following your treatment plan - Difficulty taking any of your medications CALL 911 OR GO TO THE EMERGENCY DEPARTMENT if you experience any of the following: - Sudden, severe abdominal pain or nausea/vomiting - Severe chest pain or chest pain that radiates to your jaw or arm - Sudden, severe shortness of breath or difficulty breathing Pending Studies at Discharge: No Stand-Alone Forms: My [facility], Smoking Cessation Medications and DC Order Prescriptions: New diclofenac sodium [Voltaren Arthritis Pain] 1 % gel 4 g topical QID Qty: 100 0RF Rx Instructions: Apply to right rib cage 3-4 times per day. If no pain relief in 3-4 days of consistent use, you may stop using it Continued diltiazem HCl 360 mg capsule,extended release 24hr 360 mg PO DAILY Qty: 90 3RF hydrocodone-acetaminophen 5-325 mg tablet 1 tab PO DAILY PRN (Reason: Pain) potassium chloride 20 mEq Tablet Extended Release 20 meq PO QAM PRN (Reason: when taking lasix) metoprolol succinate 100 mg tablet extended release 24 hr 100 mg PO QAM metformin 1,000 mg tablet 1,000 mg PO BID insulin aspart U-100 [Novolog FlexPen U-100 Insulin] 100 unit/mL (3 mL) insulin pen 16 - 20 unit SUBCUT TIDM insulin aspart U-100 [Novolog FlexPen U-100 Insulin] 100 unit/mL (3 mL) insulin pen 5 - 8 unit SUBCUT HS furosemide 80 mg tablet 80 mg PO BID17 PRN (Reason: Fluid Retention) gabapentin 300 mg capsule 300 mg PO HS PRN (Reason: Back Pain) atorvastatin 40 mg tablet 20 mg PO AMPM insulin glargine [Lantus Solostar U-100 Insulin] 100 unit/mL (3 mL) insulin pen 30 unit subcut AMHS Qty: 15 2RF Discharge Orders: Discharge Order (Routine); Ordered 08/18/22 Ordered By: Rosita Nassar/Other Patient Handouts: Deep Breathing Admission Data Admit Date/Time: 08/18/22 00:48 Attending Provider: Clarke Ritter Admit Provider: Wayne Cain Primary Care Provider: PCP,NO Other Providers: Andrea Davis Other Interventions: Discharge Summary Assessment (RN) Last Done: 08/18/22 16:45 Supervising Physician Co-Signing Physician Notes I personally examined the patient and verified all ramirez points of history and exam, discussed case, and agree with decision making with Dr Rubin. Right lower stabbing rib pain worse with a deep breath. Has a bit of a cough lately. Vitals noted, in general he is awake and alert pleasant no distress. HEENT normocephalic atraumatic mucous membranes moist. Osteopathic/musculoskeletal shows right sided ribs to be tender, decreased range of motionstuck in exhalationbalanced ligamentous tension, some improvement in soft tissue texture, patient tolerated well. OMT did reproduce some of his pain as well. Chest pain/rib painappears to be some degree of chronic rib pain due to his sternotomy, and acutely exacerbated by coughing. OMT as above, Voltaren gel 4 times daily, given that he no longer has a PCP (it sounds like his PCP abruptly vanished on him) we will try to get him set up with [facility] where he can follow-up with a DO physician for ongoing OMT given that his rib pain has been chronic. Somatic dysfunction rib cageOMT as above. Resident Activity Tracking Resident Involvement: Resident Care Provided Care Provided: Adult Hospital Medicine
--- NOTE | 2022-08-18 19:30 | Billing Data ---
Date of Service August 18, 2022 Coding Level of Care Code 88232 IN/OBS DISCH 30 MIN/LESS
--- NOTE | 2022-08-18 19:30 | Hospitalist Progress Note ---
Date of Service August 18, 2022 Assessment & Plan Admission and Anticipated Discharge Date Admission Date: August 18, 2022 Results & Data Results & Data Vital Signs (Past 12 Hours) Vital Signs Temp Pulse Resp BP BP Pulse Ox O2 Del Method 08/18/22 16:45 97.9 F 74 16 109/69 119/78 95 08/18/22 15:25 97.9 F 74 16 109/69 95 Room Air 08/18/22 12:13 97.7 F 81 18 119/78 94 Room Air 08/18/22 07:58 98.1 F 87 18 145/83 H 93 Room Air PG Care Time/CCT Total # of Minutes Spent Total Time Spent with Patient: Total time spent is greater than 50% in coordination of care (as documented) at patient's floor/unit and/or counseling patient: Coding Level of Care Code None Diagnoses CPT Codes Musculoskeletal - Musculoskeletal: [address] 1-2 Body regions ([id number])
--- NOTE | 2022-08-18 19:44 | Billing Data ---
Date of Service August 18, 2022 Coding Level of Care Code 58893 INT INP/OBS CARE
[2022-08-18] MEDS ORDERED: LANTUS PER UNIT CHARGE SQ SCH (21:00)
== END 2022-08-18 18:02 | disposition home or self-care (01) | DRG 556 ==
LOC: ED 20:38 → 2N 08-18 00:48 → SUATTDRO 08-18 00:48 → 2N 08-18 01:40

== ENCOUNTER 2022-12-12 11:58 | Inpatient (IN) ==
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
--- NOTE | 2022-12-12 12:42 | XRay Report ---
XR chest 1V portable CLINICAL HISTORY: Chest pain, nonspecific TECHNIQUE: Single frontal radiograph of the chest was obtained. Comparison: Comparison is made to chest radiograph 08/17/2022 FINDINGS: Median sternotomy wires are unchanged. Defibrillator pacemaker is seen. The cardiomediastinal silhoue tte is normal. Lungs are underinflated but clear. No evidence of pleural effusion or pneumothorax. IMPRESSION: No acute chest disease. ACT 112: Negative or not required by law. Electronically signed by: Derrell Kay M.D. 12/12/2022 12:40 PM
[2022-12-12 12:48] LABS: Basophils # (auto) 0.05 K/uL (0-0.2); Basophils % (auto) 0.8 %; Eosinophils # (auto) 0.12 K/uL (0-0.50); Eosinophils % (auto) 1.9 %; Hematocrit (blood only) 47.2 % (42.0-52.0); Immature Granulocytes # (auto) 0.03 K/uL (0.01-0.20); Immature Granulocytes % (auto) 0.5 %; Lymphocytes # (auto) 1.16 K/uL (1.2-3.4); Lymphocytes % (auto) 18.5 %; Mean Corpuscular Hemoglobin 29.8 pg (25.0-34.0); Mean Corpuscular Volume 82.8 fL (80.0-100.0); Mean Platelet Volume 11.6 fL (9.4-12.4); Monocytes # (auto) 0.48 K/uL (0.11-0.59); Monocytes % (auto) 7.7 %; Neutrophils # (auto) 4.43 K/uL (1.40-6.50); Neutrophils % (auto) 70.6 %; Platelet Count 207 K/uL (130-400); RDW Coefficient of Variation 12.8 % (11.5-14.5); RDW Standard Deviation 38.1 fL (36.4-46.3); White Blood Count 6.27 K/ul (4.8-10.8)
[2022-12-12 13:07] LABS: Albumin Globulin Ratio 1.3 (0.9-2); Albumin Level 4.2 gm/dl (3.4-5.0); BUN Creatinine Ratio 18.1 (10-20); Bilirubin,Total 0.7 mg/dl (0.2-1.0); Calcium 9.2 mg/dl (8.6-10.3); Creatinine Clr Calc Pharmacy 137.4 ml/min; Est GFR (African American) 108.4 ml/min; Est GFR (Non-African American) 93.5 ml/min; Globulin 3.2 gm/dl (2.5-4.0); Potassium 4.4 mmol/L (3.5-5.1); Total Protein 7.4 gm/dl (6.0-8.3)
[2022-12-12 13:09] LABS: Troponin I High Sensitivity 47.5 pg/ml (0-20)
[2022-12-12 13:10] LABS: Prothrombin Time 10.5 Seconds (9.0-12.0)
[2022-12-12] MEDS ORDERED: SODIUM CHLORIDE 0.9% 1000ML 1,000 ML IV ONE (13:29)
[2022-12-12 13:32] LABS: Lyme Ab IgG w/WB Rflx Negative (Negative)
[2022-12-12 13:33] LABS: Lyme Ab IgM w/WB Rflx Negative (Negative)
[2022-12-12 13:53] LABS: Appearance Urine Clear (Clear); Bilirubin Urine Negative (Negative); Blood Urine Trace (Negative); Color Urine Yellow; Glucose Urine UA 3+ (Negative); Ketones Urine 2+ (Negative); Leukocyte Esterase Urine Negative (Negative); Nitrite Urine Negative (Negative); Protein Urine Negative (Negative); Urobilinogen Urine Negative (Negative)
[2022-12-12] MEDS ORDERED: GLUCOSE 40% GEL 15 GM TUBE PO PRN (13:56)
[2022-12-12] MEDS ORDERED: DEXTROSE 50% 50 ML SYRINGE IV PRN (13:56)
[2022-12-12] MEDS ORDERED: GLUCOSE 10 TAB/TUBE PO PRN (13:56)
[2022-12-12] MEDS ORDERED: CARBOHYDRATES FOR HYPOGLYCEMIA PO PRN (13:56)
[2022-12-12] MEDS ORDERED: GLUCAGON FOR INJ 1 MG VIAL SQ PRN (13:56)
[2022-12-12] MEDS ORDERED: STAT INSULIN DRIP STA (13:56)
[2022-12-12 14:04] LABS: Bacteria Urine Negative (Negative); Epithelial Cell Urine 0-5 /lpf (0-5); WBC Urine 0-5 /hpf (0-5)
[2022-12-12 14:05] LABS: RBC Urine 0-4 /hpf (0-4)
[2022-12-12 14:21] LABS: Adenovirus PCR Not Detected (NotDetected); Bordetella parapertussis PCR Not Detected (NotDetected); Bordetella pertussis PCR Not Detected (NotDetected); Chlamydia pneumoniae PCR Not Detected (NotDetected); Coronavirus 229E PCR Not Detected (NotDetected); Coronavirus CoV-2 (COVID19)PCR Not Detected (NotDetected); Coronavirus HKU1 PCR Not Detected (NotDetected); Coronavirus NL63 PCR Not Detected (NotDetected); Coronavirus OC43PCR Not Detected (NotDetected); Human Metapneumovirus PCR Not Detected (NotDetected); Influenza A PCR Not Detected (NotDetected); Influenza B PCR Not Detected (NotDetected); Mycoplasma pneumoniae PCR Not Detected (NotDetected); Parainfluenza Virus 1 PCR Not Detected (NotDetected); Parainfluenza Virus 2 PCR Not Detected (NotDetected); Parainfluenza Virus 3 PCR Not Detected (NotDetected); Parainfluenza Virus 4 PCR Not Detected (NotDetected); Respiratory Syncytial VirusPCR Not Detected (NotDetected); Rhinovirus/Enterovirus PCR Not Detected (NotDetected)
[2022-12-12 14:23] LABS: Base Excess VBG -1.3 mEq/L; HCO3 VBG 24 mmol/L; Oxygen Saturation VBG 87.3 %; PCO2 VBG 40 mmHg (38-50); PO2 VBG 53 mmHg; pH VBG 7.38 (7.36-7.41)
[2022-12-12] MEDS ORDERED: IOVERSOL 350 MG 125mL Prefilled Syringe IV ONE (14:24)
[2022-12-12] MEDS: INSULIN REGULAR 250 UNITS in SODIUM CHLORIDE 0.9% 247.5 ML IV SCH ×2 (14:57→23:01)
--- NOTE | 2022-12-12 15:39 | CT Scan Report ---
CT facial bones w con CT DOSE: CLINICAL HISTORY: L jaw pain TECHNIQUE: Multiaxial CT images of the facial bones were performed following the intravenous administ ration of 100 cc of Optiray 350. Sagittal and coronal reformations were also obtained A dose lowerin g technique was utilized adhering to the principles of ALARA. COMPARISON STUDY: CTA neck 08/10/2022. Sinus CT 04/19/2009. FINDINGS: The visualized brain parenchyma and orbits are unremarkable. The pterygopalatine fossa are well-maintained. Facial soft tissues are unremarkable. No lymphadenopathy or masses identified. Mild mucosal thickening within the nectar sinuses. Multiple dental caries are noted. There are few scatter ed periapical lucencies within the right maxilla and anterior mandible. The visualized mastoid air ce lls are clear. No acute fractures identified. There is right nasal septal deviation. IMPRESSION: 1. No fractures identified. 2. No significant soft tissue swelling or abscess identified within the face. 3. Periodontal disease is noted. ACT 112: Negative or not required by law. Electronically signed by: Eliazar Pinto M.D. 12/12/2022 3:38 PM
[2022-12-12] MEDS ORDERED: INSULIN ASPART PER UNIT CHARGE SC SCH ×3 (16:30→21:00)
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
--- NOTE | 2022-12-12 18:08 | Electrocardiogram Report ---
Test Reason : Blood Pressure : / mmHG Vent. Rate : 103 BPM Atrial Rate : 103 BPM P-R Int : 156 ms QRS Dur : 178 ms QT Int : 426 ms P-R-T Axes : 045 -85 080 degrees QTc Int : 558 ms Atrial-sensed ventricular-paced rhythm Biventricular pacemaker detected Abnormal ECG When compared with ECG of 17-AUG-2022 20:48, Vent. rate has decreased BY 14 BPM Confirmed by Lucio Millard ([id number]) on 12/12/2022 6:08:12 PM Referred By: REFERRED SELF Confirmed By:Sonny Millard
[2022-12-12] MEDS ORDERED: PHARMACY GLYCEMIC MGMT CONSULT PRN (18:24)
[2022-12-12] MEDS: POTASSIUM CHLORIDE 20 MEQ in PLASMA-LYTE A 1,000 ML IV SCH (19:29)
[2022-12-12] MEDS: PENDING D5 1/2NS+20mEq KCL IVF SCH ×2 (19:41→22:01)
[2022-12-12] MEDS: PENDING D5 1/2NS+40mEq KCL IVF SCH ×2 (19:42→22:01)
[2022-12-12] MEDS: ATORVASTATIN 40 MG TAB PO SCH (20:11)
[2022-12-12] MEDS: ACETAMINOPHEN 325 MG TAB PO PRN (20:19)
[2022-12-12] MEDS ORDERED: LANTUS PER UNIT CHARGE SC ONE (20:30)
[2022-12-12 21:00] LABS: BUN Creatinine Ratio 17.2 (10-20); Calcium 8.8 mg/dl (8.6-10.3); Creatinine Clr Calc Pharmacy 139.3 ml/min; Est GFR (African American) 109.8 ml/min; Est GFR (Non-African American) 94.7 ml/min; Magnesium 1.8 mg/dl (1.7-2.4); Phosphorus 3.2 mg/dl (2.5-4.9); Potassium 4.2 mmol/L (3.5-5.1)
[2022-12-12] MEDS: HYDROmorphone INJ 0.5 MG/0.5 ML SYR IV PRN (21:46)
[2022-12-12 22:57] LABS: BUN Creatinine Ratio 18.2 (10-20); Calcium 8.6 mg/dl (8.6-10.3); Creatinine Clr Calc Pharmacy 147.2 ml/min; Est GFR (African American) 115.3 ml/min; Est GFR (Non-African American) 99.5 ml/min; Magnesium 1.8 mg/dl (1.7-2.4); Phosphorus 3.1 mg/dl (2.5-4.9); Potassium 3.7 mmol/L (3.5-5.1)
[2022-12-13 00:53] LABS: Troponin I High Sensitivity 59.6 pg/ml (0-20)
[2022-12-13] MEDS: ACETAMINOPHEN 325 MG TAB PO PRN (02:38)
[2022-12-13 02:54] LABS: Basophils # (auto) 0.05 K/uL (0-0.2); Basophils % (auto) 0.8 %; Eosinophils # (auto) 0.17 K/uL (0-0.50); Eosinophils % (auto) 2.7 %; Hemoglobin 15.5 g/dl (14.0-18.0); Immature Granulocytes # (auto) 0.03 K/uL (0.01-0.20); Immature Granulocytes % (auto) 0.5 %; Lymphocytes % (auto) 38.5 %; Mean Corpuscular Hemoglobin 29.8 pg (25.0-34.0); Mean Corpuscular Volume 82.5 fL (80.0-100.0); Mean Platelet Volume 11.3 fL (9.4-12.4); Monocytes # (auto) 0.57 K/uL (0.11-0.59); Monocytes % (auto) 9.1 %; Neutrophils # (auto) 3.02 K/uL (1.40-6.50); Neutrophils % (auto) 48.4 %; Platelet Count 183 K/uL (130-400); RDW Coefficient of Variation 12.8 % (11.5-14.5); RDW Standard Deviation 38.3 fL (36.4-46.3); Red Blood Count 5.21 M/uL (4.70-6.10); White Blood Count 6.24 K/ul (4.8-10.8)
[2022-12-13 03:08] LABS: BUN Creatinine Ratio 20.2 (10-20); Calcium 8.6 mg/dl (8.6-10.3); Creatinine Clr Calc Pharmacy 154.2 ml/min; Est GFR (African American) 117.5 ml/min; Est GFR (Non-African American) 101.4 ml/min; Magnesium 1.9 mg/dl (1.7-2.4); Phosphorus 3.1 mg/dl (2.5-4.9); Potassium 3.4 mmol/L (3.5-5.1)
[2022-12-13] MEDS ORDERED: POTASSIUM CHLORIDE CRTAB 20 MEQ TABCR PO STA (03:53)
[2022-12-13] MEDS: INSULIN REGULAR 250 UNITS in SODIUM CHLORIDE 0.9% 247.5 ML IV SCH (03:57)
[2022-12-13] MEDS ORDERED: INSULIN ASPART PER UNIT CHARGE SC ONE ×2 (04:00→04:15)
[2022-12-13] MEDS: PENDING D5 1/2NS+20mEq KCL IVF SCH (04:07)
[2022-12-13] MEDS: PENDING D5 1/2NS+40mEq KCL IVF SCH (04:07)
[2022-12-13] MEDS: POTASSIUM CHLORIDE 20 MEQ in PLASMA-LYTE A 1,000 ML IV SCH (04:08)
[2022-12-13] MEDS: HYDROmorphone INJ 0.5 MG/0.5 ML SYR IV PRN ×2 (04:29→10:26)
[2022-12-13] MEDS ORDERED: INSULIN ASPART PER UNIT CHARGE SC SCH ×2 (07:30)
[2022-12-13 07:34] LABS: BUN Creatinine Ratio 21.5 (10-20); Calcium 8.4 mg/dl (8.6-10.3); Est GFR (African American) 120.5 ml/min; Magnesium 1.9 mg/dl (1.7-2.4); Phosphorus 3.5 mg/dl (2.5-4.9); Potassium 4.4 mmol/L (3.5-5.1)
[2022-12-13] MEDS: METOPROLOL SUCC 50MG EXT REL TAB PO SCH (08:26)
[2022-12-13] MEDS: LANTUS PER UNIT CHARGE SC SCH ×2 (08:27→20:56)
[2022-12-13] MEDS: INSULIN ASPART PER UNIT CHARGE SC SCH ×4 (08:28→20:55)
--- NOTE | 2022-12-13 08:39 | Pharmacy Report ---
Pharmacy Glycemic Short Note 2 - Date of Service December 13, 2022 - Glycemic Short BSG Results (Last 24 hours): 12/12/22 12/12/22 12/12/22 12:10 15:46 16:48 Glucose 623 H* POC Glucose 480 H* 376 H* 12/12/22 12/12/22 12/12/22 17:54 20:03 20:20 Glucose 335 H* POC Glucose 235 H 315 H* 12/12/22 12/12/22 12/12/22 22:20 22:26 23:56 Glucose 275 H POC Glucose 278 H 193 H 12/13/22 12/13/22 12/13/22 00:57 01:57 02:17 Glucose POC Glucose 132 H 100 H 106 H 12/13/22 12/13/22 12/13/22 02:31 02:39 02:55 Glucose 130 H POC Glucose 126 H 142 H 12/13/22 12/13/22 12/13/22 04:33 07:01 08:08 Glucose 222 H POC Glucose 160 H 229 H OUTPATIENT ANTIDIABETIC REGIMEN: * Lantus 20 units SC BID * Novolog 12-16 units SC ACHS * Metformin 1 g PO BIDM HbA1c: 12.7% (08/09/22) ASSESSMENT: * DG is a 52 year old male presented to ED on 12/12/22 w/ CC of generalized weakness and fatigue. Subsequently found to have profound hyperglycemia (623 mg/dL). * Serum osmolality on admission of 301, which was mildly elevated above normal range 285-295 mOsm/kg. VBG pH of 7.38. * Insulin infusion initiated in ED - transitioned to SC overnight w/ dose of basal insulin. * Patient w/ history of poorly controlled T2DM, known to pharmacy. Prior admission data suggests that ~weight/based stress of 3 basal/bolus dosing will be appropriate initially. PLAN FOR INPATIENT GLYCEMIC CONTROL: * Hold outpatient oral diabetes medications * Basal insulin * Lantus 30 units SQ BID * Bolus insulin * NovoLog per scale ACHS or Q6hrs while NPO * Goal Range: Low 110 mg/dL - High 140 mg/dL * Correction Factor: 10 mg/dL/unit * Nutritional / Prandial insulin per carb ratio of 1 unit per 3 grams CHO consumed
[2022-12-13 09:18] LABS: Estimated Average Glucose 401 mg/dl; Hemoglobin A1C 15.6 % (4.5-5.6)
[2022-12-13] MEDS ORDERED: CELECOXIB 100 MG CAP PO SCH (10:45)
[2022-12-13 10:59] LABS: BUN Creatinine Ratio 23.7 (10-20); Calcium 8.4 mg/dl (8.6-10.3); Creatinine Clr Calc Pharmacy 170.5 ml/min; Est GFR (African American) 122.4 ml/min; Est GFR (Non-African American) 105.6 ml/min; Magnesium 1.8 mg/dl (1.7-2.4); Phosphorus 2.7 mg/dl (2.5-4.9); Potassium 3.9 mmol/L (3.5-5.1)
[2022-12-13] MEDS: GABAPENTIN 300 MG CAP PO SCH ×2 (12:01→20:39)
[2022-12-13] MEDS: ACETAMINOPHEN 325 MG TAB PO SCH ×3 (12:02→20:39)
[2022-12-13 16:18] LABS: Calcium 8.8 mg/dl (8.6-10.3); Creatinine Clr Calc Pharmacy 154.2 ml/min; Est GFR (African American) 117.5 ml/min; Est GFR (Non-African American) 101.4 ml/min; Magnesium 1.8 mg/dl (1.7-2.4); Phosphorus 2.8 mg/dl (2.5-4.9)
[2022-12-13] MEDS: cephALEXin 500 MG CAP PO SCH (20:38)
[2022-12-13] MEDS: ATORVASTATIN 40 MG TAB PO SCH (20:39)
--- NOTE | 2022-12-13 22:43 | Hospitalist Progress Note ---
Date of Service December 13, 2022 Assessment & Plan (1) Hyperosmolar hyperglycemic state (HHS): Plan: Acute HHS, type II DM At last discharge was on Lantus 30 twice daily, NovoLog 16-20 units 3 times daily with meals in addition to 5 to 8 units at bedtime, metformin 1 g twice daily Patient is admitted on insulin gtt. due to ketones and high BSG. This is continued. Once BSG is under 250 may switch to SQ insulin. Bicarb is normal, AG not elevated. Trend BMP every 4 hours. Potassium is 4.4 at time of admission, IVF M with KCl continued. Add D5 if needed per protocol. Pharmacy glycemic management consulted for assistance. On admission, no leukocytosis VB.3 / Patient is not tachycardic or hypotensive. Body weight 134 kg, while in ER he received 1 L of NSS Sodium 130, suspect pseudohyponatremia in the setting of hyperglycemia Creatinine 0.94 on admission without contracted ratio PSG 623 on admit, No clear inciting infection, patient did have nipple drain 2 days ago but does not have leukocytosis. Bio fire is negative. CXR: No acute findings. - Last A1C >12 - PCP retired _Blood sugars appear better controlled on 12/13, possible discharge on 12/14 or 12/15 ?Nasal Cellulitis CTface: No significant soft tissue swelling/abscess. Periodontal disease noted. No acute fracture - Nose is erythematous and tender, pt reports purulent material was expressed 2 days ago - ?cellulitis - MRSA swab pending. No yellow crust but +purulence in last day. keflex started on 12/13 If MRSA + switch to doxy HOCM, CHFpEF, biventricular ICD. no acute exacerbation Echo 08/2022: EF 60-65%, normal LV motion. Severe concentric LVH High sensitive troponin 47.5, suspect demand. - No acute EKG changes suggestive of ischemia - trop trended - No CP at time of admit CKD With DM2 and hypertension - Trend Cr daily - Renally adjust medications as needed DVT prophylaxis: Lovenox Diet: N.p.o. while on gtt., then type II DM Disposition: PCU CODE STATUS: Full code (2) Type 2 diabetes mellitus: (3) Chronic diastolic congestive heart failure: (4) Biventricular ICD (implantable cardioverter-defibrillator) in place: (5) Elevated troponin: (6) HTN (hypertension): (7) Hypertrophic cardiomyopathy: Admission and Anticipated Discharge Date Admission Date: December 12, 2022 Subjective Patient reports no new symptoms. Review of Systems Review of Systems: All systems reviewed & are unremarkable except as noted in HPI & below Physical Exam Physical Exam: General: A&Ox3. NAD. Cooperative. HEENT: Atraumatic, normocephalic. Nose erythematous. No purulence. TTP. Pulm: CTAB A&P. -wheezes, -rales, -rhonchi. Symmetrical chest rise. No increased work of breathing. No respiratory distress. Cardiac: RRR, -mrg. Radial pulses intact and symmetrical. Abdominal: Nontender, nondistended, soft. BS present. Results & Data Results & Data Vital Signs (Past 12 Hours) Vital Signs Temp Pulse Resp BP Pulse Ox O2 Del Method 12/13/22 19:00 36.8 C 67 18 131/81 96 Room Air 12/13/22 15:45 36.5 C 64 18 133/75 96 Room Air 12/13/22 12:12 36.7 C 70 18 149/94 H 95 Room Air PG Care Time/CCT Total # of Minutes Spent Total Time Spent with Patient: Total time spent is greater than 50% in coordination of care (as documented) at patient's floor/unit and/or counseling patient: Coding Level of Care Code 10069 SUB INP/OBS CARE 2/35MIN Diagnoses Hyperosmolar hyperglycemic state (HHS) E11.00 Type 2 diabetes mellitus E11.65; Z79.4 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 complication status: with hyperglycemia 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 care home insulin use: with extermination supervisor use Chronic diastolic congestive heart failure I50.32 Biventricular ICD (implantable cardioverter-defibrillator) in place Z95.810 Elevated troponin R77.8 HTN (hypertension) I10 Hypertension type: unspecified Hypertrophic cardiomyopathy I42.2 (2) Type 2 diabetes mellitus 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 complication status: with hyperglycemia 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 care home insulin use: with extermination supervisor use Qualified Code(s): E11.65 - Type 2 diabetes mellitus with hyperglycemia; Z79.4 - extermination supervisor (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 (6) HTN (hypertension) Hypertension type: unspecified Qualified Code(s): I10 - Essential (primary) hypertension
[2022-12-14] MEDS ORDERED: INSULIN ASPART PER UNIT CHARGE SC SCH (02:00)
[2022-12-14] MEDS: HYDROmorphone INJ 0.5 MG/0.5 ML SYR IV PRN ×3 (03:15→18:32)
[2022-12-14 05:03] LABS: Basophils # (auto) 0.04 K/uL (0-0.2); Basophils % (auto) 0.7 %; Eosinophils # (auto) 0.13 K/uL (0-0.50); Eosinophils % (auto) 2.3 %; Hematocrit (blood only) 43.5 % (42.0-52.0); Hemoglobin 15.4 g/dl (14.0-18.0); Immature Granulocytes # (auto) 0.02 K/uL (0.01-0.20); Immature Granulocytes % (auto) 0.4 %; Lymphocytes # (auto) 1.89 K/uL (1.2-3.4); Lymphocytes % (auto) 33.3 %; Mean Corpuscular Hemoglobin 29.3 pg (25.0-34.0); Mean Corpuscular Hgb Conc 35.4 g/dL (32.0-36.0); Mean Corpuscular Volume 82.7 fL (80.0-100.0); Mean Platelet Volume 11.5 fL (9.4-12.4); Monocytes # (auto) 0.47 K/uL (0.11-0.59); Monocytes % (auto) 8.3 %; Neutrophils # (auto) 3.12 K/uL (1.40-6.50); Platelet Count 184 K/uL (130-400); RDW Standard Deviation 38.7 fL (36.4-46.3); Red Blood Count 5.26 M/uL (4.70-6.10); White Blood Count 5.67 K/ul (4.8-10.8)
[2022-12-14 05:22] LABS: C Reactive Protein 1.27 mg/dl (0-0.5); Creatinine Clr Calc Pharmacy 175.1 ml/min; Est GFR (African American) 123.8 ml/min; Est GFR (Non-African American) 106.8 ml/min; Potassium 3.7 mmol/L (3.5-5.1)
[2022-12-14] MEDS: INSULIN ASPART PER UNIT CHARGE SC SCH ×5 (08:22→20:55)
[2022-12-14] MEDS: LANTUS PER UNIT CHARGE SC SCH ×2 (08:22→20:59)
[2022-12-14] MEDS: GABAPENTIN 300 MG CAP PO SCH ×2 (08:26→20:51)
[2022-12-14] MEDS: cephALEXin 500 MG CAP PO SCH ×4 (08:26→20:52)
[2022-12-14] MEDS: ACETAMINOPHEN 325 MG TAB PO SCH ×4 (08:27→20:52)
[2022-12-14] MEDS: METOPROLOL SUCC 50MG EXT REL TAB PO SCH (08:27)
--- NOTE | 2022-12-14 13:59 | Pharmacy Report ---
Pharmacy Glycemic Short Note 2 - Date of Service December 14, 2022 - Glycemic Short BSG Results (Last 24 hours): 12/13/22 12/13/22 12/13/22 15:17 16:51 20:24 Glucose 111 H POC Glucose 98 174 H 12/14/22 12/14/22 12/14/22 02:11 04:17 07:46 Glucose 105 H POC Glucose 186 H 119 H 12/14/22 12:02 Glucose POC Glucose 246 H OUTPATIENT ANTIDIABETIC REGIMEN: * Lantus 20 units SC BID * Novolog 12-16 units SC ACHS * Metformin 1 g PO BIDM HbA1c: 12.7% (08/09/22) ASSESSMENT: 12/14/22 * BSGs yesterday were 229-257/238-98-174 mg/dL. An 0200 check was 186 mg/dL. (for which patient received 5 units of bolus) * Patient received a total of 161 units of insulin yesterday (60 units of basal and 101 units of bolus) * Fasting today was 119 mg/dL. * Will decrease basal slightly to 27 units (10% reduction). Patient reported symptoms of hypoglycemia when BSGs were in the 230s. * Loosen CF since patient overcorrected at dinner. * Tighten CR to prevent BSG spikes. BACKGROUND * DG is a 52 year old male presented to ED on 12/12/22 w/ CC of generalized weakness and fatigue. Subsequently found to have profound hyperglycemia (623 mg/dL). * Serum osmolality on admission of 301, which was mildly elevated above normal range 285-295 mOsm/kg. VBG pH of 7.38. * Insulin infusion initiated in ED - transitioned to SC overnight w/ dose of basal insulin. * Patient w/ history of poorly controlled T2DM, known to pharmacy. Prior admission data suggests that ~weight/based stress of 3 basal/bolus dosing will be appropriate initially. PLAN FOR INPATIENT GLYCEMIC CONTROL: * Hold outpatient oral diabetes medications * Basal insulin * Lantus 27 units SQ BID * Bolus insulin * NovoLog per scale ACHS or Q6hrs while NPO * Goal Range: Low 110 mg/dL - High 140 mg/dL * Correction Factor: 12 mg/dL/unit * Nutritional / Prandial insulin per carb ratio of 1 unit per 2 grams CHO consumed
[2022-12-14] MEDS: ATORVASTATIN 40 MG TAB PO SCH (20:52)
--- NOTE | 2022-12-14 21:07 | Hospitalist Progress Note ---
Date of Service December 14, 2022 Assessment & Plan (1) Hyperosmolar hyperglycemic state (HHS): Plan: Acute HHS, type II DM At last discharge was on Lantus 30 twice daily, NovoLog 16-20 units 3 times daily with meals in addition to 5 to 8 units at bedtime, metformin 1 g twice daily Patient is admitted on insulin gtt. due to ketones and high BSG. This is continued. Once BSG is under 250 may switch to SQ insulin. Bicarb is normal, AG not elevated. Trend BMP every 4 hours. Potassium is 4.4 at time of admission, IVF M with KCl continued. Add D5 if needed per protocol. Pharmacy glycemic management consulted for assistance. On admission, no leukocytosis VB.3 / Patient is not tachycardic or hypotensive. Body weight 134 kg, while in ER he received 1 L of NSS Sodium 130, suspect pseudohyponatremia in the setting of hyperglycemia Creatinine 0.94 on admission without contracted ratio PSG 623 on admit, No clear inciting infection, patient did have nipple drain 2 days ago but does not have leukocytosis. Bio fire is negative. CXR: No acute findings. 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 Periodontal disease noted. No acute fracture - Nose is erythematous and tender, pt reports purulent material was expressed 2 days ago - ?cellulitis - MRSA swab is negative. No yellow crust but with decreased purulence. keflex started on 12/13 If continues to improve will discharge on 12/15 HOCM, CHFpEF, biventricular ICD. no acute exacerbation Echo 08/2022: EF 60-65%, normal LV motion. Severe concentric LVH High sensitive troponin 47.5, suspect demand. - No acute EKG changes suggestive of ischemia - trop trended - No CP at time of admit CKD With DM2 and hypertension - Trend Cr daily - Renally adjust medications as needed DVT prophylaxis: Lovenox Diet: N.p.o. while on gtt., then type II DM Disposition: PCU CODE STATUS: Full code (2) Type 2 diabetes mellitus: (3) Chronic diastolic congestive heart failure: (4) Biventricular ICD (implantable cardioverter-defibrillator) in place: (5) Elevated troponin: (6) HTN (hypertension): (7) Hypertrophic cardiomyopathy: Admission and Anticipated Discharge Date Admission Date: December 12, 2022 Subjective Patient reports feeling better. Patient has no new complaints. Review of Systems Review of Systems: All systems reviewed & are unremarkable except as noted in HPI & below Physical Exam Physical Exam: General: A&Ox3. NAD. Cooperative. HEENT: Atraumatic, normocephalic. Nose has decreased erythematous. No purulence. TTP. Pulm: CTAB A&P. -wheezes, -rales, -rhonchi. Symmetrical chest rise. No increased work of breathing. No respiratory distress. Cardiac: RRR, -mrg. Radial pulses intact and symmetrical. Abdominal: Nontender, nondistended, soft. BS present. Results & Data Results & Data Vital Signs (Past 12 Hours) Vital Signs Temp Pulse Resp BP Pulse Ox O2 Del Method 12/14/22 19:00 36.6 C 18 141/78 H 97 Room Air 12/14/22 15:38 37.1 C 64 17 128/81 94 Room Air 12/14/22 11:27 36.6 C 58 L 18 111/71 97 Room Air PG Care Time/CCT Total # of Minutes Spent Total Time Spent with Patient: Total time spent is greater than 50% in coordination of care (as documented) at patient's floor/unit and/or counseling patient: Coding Level of Care Code 81716 SUB INP/OBS CARE 2/35MIN Diagnoses Hyperosmolar hyperglycemic state (HHS) E11.00 Type 2 diabetes mellitus E11.65; Z79.4 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 complication status: with hyperglycemia 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 extermination supervisor insulin use: with fdc use Chronic diastolic congestive heart failure I50.32 Biventricular ICD (implantable cardioverter-defibrillator) in place Z95.810 Elevated troponin R77.8 HTN (hypertension) I10 Hypertension type: unspecified Hypertrophic cardiomyopathy I42.2 (2) Type 2 diabetes mellitus 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 complication status: with hyperglycemia 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 fdc insulin use: with fdc use Qualified Code(s): E11.65 - Type 2 diabetes mellitus with hyperglycemia; Z79.4 - retirement (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 (6) HTN (hypertension) Hypertension type: unspecified Qualified Code(s): I10 - Essential (primary) hypertension
[2022-12-15] MEDS: HYDROmorphone INJ 0.5 MG/0.5 ML SYR IV PRN ×3 (01:52→14:35)
[2022-12-15] MEDS ORDERED: INSULIN ASPART PER UNIT CHARGE SC ONE (02:00)
[2022-12-15 05:59] LABS: Basophils # (auto) 0.04 K/uL (0-0.2); Basophils % (auto) 0.7 %; Eosinophils # (auto) 0.13 K/uL (0-0.50); Eosinophils % (auto) 2.4 %; Hematocrit (blood only) 42.5 % (42.0-52.0); Hemoglobin 15.1 g/dl (14.0-18.0); Immature Granulocytes # (auto) 0.02 K/uL (0.01-0.20); Immature Granulocytes % (auto) 0.4 %; Lymphocytes # (auto) 1.73 K/uL (1.2-3.4); Lymphocytes % (auto) 32.2 %; Mean Corpuscular Hgb Conc 35.5 g/dL (32.0-36.0); Mean Corpuscular Volume 84.3 fL (80.0-100.0); Mean Platelet Volume 11.5 fL (9.4-12.4); Monocytes # (auto) 0.43 K/uL (0.11-0.59); Neutrophils # (auto) 3.03 K/uL (1.40-6.50); Neutrophils % (auto) 56.3 %; Platelet Count 173 K/uL (130-400); RDW Coefficient of Variation 13.2 % (11.5-14.5); RDW Standard Deviation 40.3 fL (36.4-46.3); Red Blood Count 5.04 M/uL (4.70-6.10); White Blood Count 5.38 K/ul (4.8-10.8)
[2022-12-15] MEDS: INSULIN ASPART PER UNIT CHARGE SC SCH ×2 (08:53→12:56)
[2022-12-15] MEDS: LANTUS PER UNIT CHARGE SC SCH (08:53)
[2022-12-15] MEDS: METOPROLOL SUCC 50MG EXT REL TAB PO SCH (08:54)
[2022-12-15] MEDS: ACETAMINOPHEN 325 MG TAB PO SCH ×2 (08:54→12:59)
[2022-12-15] MEDS: GABAPENTIN 300 MG CAP PO SCH (08:54)
[2022-12-15] MEDS: cephALEXin 500 MG CAP PO SCH ×2 (08:55→13:00)
--- NOTE | 2022-12-15 09:09 | Discharge Summary ---
Date of Service December 15, 2022 Admission HPI Per Admitting Provider Hollis is a 52-year-old male with a past medical history of hypertrophic cardiomyopathy, hypertension, CKD, biventricular ICD with chronic heart failure, type II DM and history of HHS who [facility] emergency department with weakness and fatigue of several days. Patient noted to ER that he had a small nose tip abscess/pimple drained 2 days ago. In the ER he was found to be hyperglycemic with suspicion for HHS Kobe reports 'I feel like I have infection all over'. Drained pus from his nostril 2 days ago. Feels weak, shakey. +fevers, chills last 2 days. has felt similarly with the flu in the past. Has has intermittent shortness of breath last 24 hours which feels worse than normal. No cough. Throat feels dry. Gets some very short intermittent episodes of nausea with some vomiting. "Thirsty all the time, and mouth tastes like metal.' Peeing 'tons and stinks, smells horrible like muddy water.' No ches tpain. Has a history of HOCM with ICD since 2006. History of open heart surgery in 2016, follows with Dr. Hinson locally. Denies dietary indescretion, and drinks sweet tea but with splenda packets instead of sugar. Drinks a ton of water but feels he is peeing a ton regardless Has trouble regulating blood sugar. Was following with a [facility] PCP but that doctore left so eneds a PCP. Ne[place] endocrine and [place]. Medical History: Reviewed Medications: Reviewed Surgical History: Reviewed Family history: Reviewed Allergies: Reviewed Social History: +chews snuff, 1 can per day. Etoh 6 pack a week at most. Uses marijuana gummy for pain, this allways him to avoid oxycodone./ Code Status: Full Code Principal Diagnosis [facility] Discharge Exam General: A&Ox3. NAD. Cooperative. HEENT: Atraumatic, normocephalic. Nose has decreased erythematous. No purulence. TTP. Pulm: CTAB A&P. -wheezes, -rales, -rhonchi. Symmetrical chest rise. No increased work of breathing. No respiratory distress. Cardiac: RRR, -mrg. Radial pulses intact and symmetrical. Abdominal: Nontender, nondistended, soft. BS present. Discharge Data Allergies Allergy/AdvReac Type Severity Reaction Status Date / Time erythromycin base Allergy Severe Anaphylaxis Verified 12/12/22 14:01 Consultations 12/12/22 16:18 ED Decision to Admit Stat Ordered Studies 12/12/22 13:57 CT face [CT facial bones w con] Stat Hospital Course (1) Hyperosmolar hyperglycemic state (HHS): Acute HHS, type II DM At last discharge was on Lantus 30 twice daily, NovoLog 16-20 units 3 times daily with meals in addition to 5 to 8 units at bedtime, metformin 1 g twice daily Patient is admitted on insulin gtt. due to ketones and high BSG. This is continued. Once BSG is under 250 may switch to SQ insulin. Bicarb is normal, AG not elevated. Trend BMP every 4 hours. Potassium is 4.4 at time of admission, IVF M with KCl continued. Add D5 if needed per protocol. Pharmacy glycemic management consulted for assistance. On admission, no leukocytosis VB.3 / Patient is not tachycardic or hypotensive. Body weight 134 kg, while in ER he received 1 L of NSS Sodium 130, suspect pseudohyponatremia in the setting of hyperglycemia Creatinine 0.94 on admission without contracted ratio PSG 623 on admit, No clear inciting infection, patient did have nipple drain 2 days ago but does not have leukocytosis. Bio fire is negative. CXR: No acute findings. - Last A1C >12 - PCP retired _Blood sugars appear better controlled on 12/14, discharge on 12/15 Patient will need to be setup with a new PCP. Discharge instructions and coupons gien to patient. Patient showed understanding. ?Nasal Cellulitis CTface: No significant soft tissue swelling/abscess. Periodontal disease noted. No acute fracture - Nose is erythematous and tender, pt reports purulent material was expressed 2 days ago - ?cellulitis - MRSA swab is negative. No yellow crust but with decreased purulence. keflex started on 12/13 This continued to improve, will discharge on antibiotics as stated below. HOCM, CHFpEF, biventricular ICD. no acute exacerbation Echo 08/2022: EF 60-65%, normal LV motion. Severe concentric LVH High sensitive troponin 47.5, suspect demand. - No acute EKG changes suggestive of ischemia - trop trended - No CP at time of admit CKD With DM2 and hypertension - T - Renally adjust medications as needed (2) Type 2 diabetes mellitus: (3) Chronic diastolic congestive heart failure: (4) Biventricular ICD (implantable cardioverter-defibrillator) in place: (5) Elevated troponin: (6) HTN (hypertension): (7) Hypertrophic cardiomyopathy: Total Time Total Time Spent Total Time Spent (In Minutes): 40 Discharge Plan Discharge Items Patient Disposition: Home - Self-Care Reason For Visit: [facility] Discharge Diagnosis: [facility] Activity: Resume your previous activity Non-emergency contact: Primary Care Provider Call non-emergency contact if: you have any medication questions, your symptoms worsen, your pain is not controlled, your pain is worsening, your pain is unus ual for you, your pain is concerning for you, you have a fever, your rectal temperature is above 100.4, your temperature is above 101, your temperature is above 101.5, your wound has increased redness, your wound has increased drainage and your wound pain has increased Follow-up/Referrals: PCP,NO [Primary Care Provider] - Diet: Carb Consistent or DM2 Addtl Attending Provider Instructions: Here's a patient education guide for a diabetic diet for individuals with type 2 diabetes: 1. Understand the importance of a diabetic diet: A diabetic diet plays a crucial role in managing blood sugar levels and overall health for individuals with type 2 diabetes. It focuses on balanced eating and portion control to help maintain stable blood sugar levels. 2. Choose nutrient-dense foods: Opt for foods that are rich in nutrients and low in added sugars, unhealthy fats, and refined carbohydrates. Include a variety of fruits, vegetables, whole grains, lean proteins, and healthy fats in your meals. 3. Carbohydrate counting: Learn about carbohydrates and how they affect blood sugar levels. Carbohydrates have the most significant impact on blood sugar levels, so it's important to monitor their intake. Work with a registered dietitian to learn carbohydrate counting techniques. 4. Portion control: Be mindful of portion sizes to avoid overeating. Use measuring cups, a food scale, or visual cues to help estimate appropriate portions. Eating smaller, frequent meals throughout the day can also help stabilize blood sugar levels. 5. Focus on fiber: Incorporate high-fiber foods like whole grains, legumes, fruits, and vegetables into your diet. Fiber aids in digestion, helps control blood sugar levels, and promotes a feeling of fullness. 6. Limit added sugars: Avoid or minimize foods and beverages with added sugars such as soda, sweets, desserts, and sugary snacks. Be cautious of hidden sugars in processed foods by reading labels and choosing products with no or low added sugars. 7. Healthy fats: Include healthy fats in moderation, such as avocados, nuts, seeds, and olive oil. These fats can help with satiety and promote heart health. 8. Regular mealtimes: Establish regular meal and snack times to maintain consistent blood sugar levels throughout the day. Avoid skipping meals, as it can lead to blood sugar imbalances. 9. Stay hydrated: Drink plenty of water throughout the day to stay hydrated and support overall health. Limit sugary beverages and opt for water, herbal tea, or unsweetened beverages instead. 10. Monitor blood sugar levels: Check your blood sugar levels regularly as directed by your healthcare provider. This will help you understand how different foods affect your levels and guide your dietary choices. Remember, it's crucial to work with a registered dietitian or healthcare provider to develop an individualized meal plan that meets your specific needs. They can provide personalized guidance, assist with meal planning, and answer any questions you may have about your diabetic diet. Recommend followup with your PCP in 1 week to reassess your nose and your blood sugar. Please keep a diary of your blood sugar Pending Studies at Discharge: No Stand-Alone Forms: My [facility], Smoking Cessation Medications and DC Order Prescriptions: New insulin glargine [Lantus Solostar U-100 Insulin] 100 unit/mL (3 mL) insulin pen 25 unit subcut BID Qty: 15 0RF Apidra SoloStar U-100 Insulin 100 unit/mL insulin pen 12 - 16 unit subcut ACHS Qty: 15 0RF Rx Instructions: TIDM and HS up to 64 units per day cephalexin 500 mg Capsule 500 mg PO QID 5 Days Qty: 22 0RF (DME) FreeStyle Rodrick 3 Sensor Device See Rx Instructions .Route Qty: 1 1RF Rx Instructions: for 2 weeks each Continued potassium chloride 20 mEq Tablet Extended Release 20 meq PO QAM PRN (Reason: when taking lasix) metoprolol succinate 100 mg tablet extended release 24 hr 100 mg PO QAM metformin 1,000 mg tablet 1,000 mg PO BID furosemide 80 mg tablet 80 mg PO BID17 PRN (Reason: Fluid Retention) gabapentin 300 mg capsule 300 mg PO HS PRN (Reason: Back Pain) atorvastatin 40 mg tablet 40 mg PO HS Discontinued insulin aspart U-100 [Novolog FlexPen U-100 Insulin] 100 unit/mL (3 mL) insulin pen 12 - 16 unit SUBCUT TIDM insulin aspart U-100 [Novolog FlexPen U-100 Insulin] 100 unit/mL (3 mL) insulin pen 12 - 16 unit SUBCUT HS insulin glargine [Lantus Solostar U-100 Insulin] 100 unit/mL (3 mL) insulin pen 20 unit subcut [facility] Discharge Orders: Discharge Order (Routine); Ordered 12/15/22 Ordered By: Hesham Robles Admission Data Admit Date/Time: 12/12/22 16:34 Attending Provider: Hesham Robles Admit Provider: Fareed Clark Primary Care Provider: PCP,NO Other Providers: Fareed Clark Other Interventions: Discharge Summary Assessment (RN) Last Done: 12/15/22 13:21 Coding Level of Care Code 71637 INP/OBS DISCH >30 MIN Diagnoses Hyperosmolar hyperglycemic state (HHS) E11.00 Type 2 diabetes mellitus E11.65; Z79.4 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 complication status: with hyperglycemia 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 [employer] insulin use: with half-way use Chronic diastolic congestive heart failure I50.32 Biventricular ICD (implantable cardioverter-defibrillator) in place Z95.810 Elevated troponin R77.8 HTN (hypertension) I10 Hypertension type: unspecified Hypertrophic cardiomyopathy I42.2
[2022-12-15 10:58] LABS: Babesia microti DNA Not Detected (Not Detected)
== END 2022-12-15 15:08 | disposition home or self-care (01) | DRG 638 ==
LOC: ED 11:58 → SUATTDRO 16:34 → 4W 16:34

== ENCOUNTER 2024-08-03 13:14 | Inpatient (IN) ==
[2024-08-03 14:14] LABS: Basophils # (auto) 0.02 K/uL (0.00-0.20); Basophils % (auto) 0.5 %; Eosinophils # (auto) 0.12 K/uL (0.00-0.50); Hematocrit (blood only) 45.7 % (42.0-52.0); Hemoglobin 16.4 g/dl (14.0-18.0); Immature Granulocytes # (auto) 0.01 K/uL (0.01-0.20); Immature Granulocytes % (auto) 0.2 %; Lymphocytes % (auto) 19.8 %; Mean Corpuscular Hemoglobin 29.4 pg (25.0-34.0); Mean Corpuscular Hgb Conc 35.9 g/dL (32.0-36.0); Mean Platelet Volume 11.5 fL (9.4-12.4); Monocytes # (auto) 0.48 K/uL (0.11-0.59); Monocytes % (auto) 11.9 %; Neutrophils # (auto) 2.61 K/uL (1.40-6.50); Neutrophils % (auto) 64.6 %; Platelet Count 172 K/uL (130-400); RDW Standard Deviation 38.7 fL (36.4-46.3); Red Blood Count 5.57 M/uL (4.70-6.10); White Blood Count 4.04 K/ul (4.8-10.8)
--- NOTE | 2024-08-03 14:21 | Electrocardiogram Report ---
Test Reason : Blood Pressure : */* mmHG Vent. Rate : 98 BPM Atrial Rate : 98 BPM P-R Int : 162 ms QRS Dur : 170 ms QT Int : 438 ms P-R-T Axes : 39 -81 85 degrees QTcB Int : 559 ms Atrial-sensed ventricular-paced rhythm Biventricular pacemaker detected Abnormal ECG When compared with ECG of 12-Dec-2022 12:05, Vent. rate has decreased by 5 bpm Confirmed by Julio Ocampo ([id number]) on 08/03/2024 2:20:45 PM Referred By: Confirmed By: Julio Ocampo
--- NOTE | 2024-08-03 14:21 | Emergency Department Note ---
Impression & Plan Pre-syncope ADMIT ED Provider Note HPI: History obtained from patient. The patient is a 53-year-old gentleman with history of hypertrophic cardiomyopathy, status post ICD placement, who presents the emergency department with a chief complaint of cough and wheezing as well as presyncopal events. Patient states the symptoms have been ongoing for the past several days, patient states he has had harsh coughing episodes and when they occur he feels lightheaded and has felt as if he was "almost about to pass out". Patient denies any actual events where he lost consciousness. Patient denies any chest pain or shortness of breath currently, on arrival here to the ED the patient is hemodynamically stable, he is saturating well on room air on my initial assessment. ROS: - Per HPI Differential Diagnosis: Arrhythmia to include SVT, ventricular tachycardia, WPW, atrial fibrillation, acute coronary syndrome, vasovagal events, pulmonary embolism, acute dehydration/acute kidney injury with presyncopal event, pneumonia, viral upper respiratory infection with cough, acute bronchitis, amongst other potential pathologies. *Outpatient medications and allergy history reviewed. PE: General: Alert, obese, no acute distress HEENT: Normocephalic, trachea midline Eyes: Extraocular eye movement is intact, no scleral erythema Pulmonary: Coarse bilateral breath sounds with expiratory wheezing bilaterally Cardio: Regular rate and rhythm GI: Abdomen is soft to palpation : No suprapubic tenderness MSK: No evidence of trauma or malformation of the extremities, no edema Skin: No evidence of rash Neuro: Alert, no focal deficits Psychiatric: Cooperative INDEPENDENT INTERPRETATIONS: compliance monitor: (As interpreted by myself): - An order was placed for continuous cardiac monitoring - Patient was noted to be in paced rhythm with a rate of 95 EKG: (As interpreted by myself): Rate: 98 Rhythm: Ventricular paced rhythm Intervals: MN 162 ms, QRS 170 ms, QTc [address] changes: No ST elevation Time: 1333 Chest x-ray: (As interpreted by myself): R lower lobe pneumonia Interventions provided in ED: -IV fluid bolus, IV cefepime, IV doxycycline, DuoNeb breathing treatment Medical Decision Making: IV was established and lab work obtained, patient was placed on manager monitoring. Lab work shows a mild leukopenia, hemoglobin is normal, platelet count is normal, CMP does not show any evidence of any critical findings, troponin is mildly elevated at 49.5, procalcitonin is low at 0.07, viral panel testing was obtained and the patient is positive for human metapneumovirus, chest x-ray is suggestive of right lower lobe pneumonia. Blood cultures were obtained and the patient was treated with IV cefepime as well as IV doxycycline for atypical coverage for potential bacterial pneumonia. He was given IV fluids here in the ED and a DuoNeb breathing treatment for wheezing. Given the patient's multiple presyncopal events, his pacemaker was interrogated, I did receive a call from the [employer] inbound call center representative stating that the patient had several short runs of ventricular tachycardia that were nonsustained. She also mentions that the patient is overdue for his checkup appointments for his pacemaker to check his battery and he might be due for replacement soon and requires a checkup. I discussed all of this with the patient, he states he feels "terrible" and therefore I do feel with his complex past medical history and multiple presyncopal events he should be admitted to the hospital for further care. He denies any current chest pain or shortness of breath, have low suspicion for PE. I suspect the majority of his symptoms are likely secondary to his viral infection and possibly an underlying element of bacterial pneumonia. [facility] hospitalist service was consulted for admission and the patient was placed for admission in stable condition. Consultants/Discussions held with other healthcare providers: -Hospitalist, Dr. Aguilar Disposition discussion held by myself with: -Patient Diagnosis: 1. Presyncope, acute 2. Pneumonia, acute, right-sided, community-acquired 3. HMV infection, acute 4. Elevated high-sensitivity troponin level, acute 5. History of hypertrophic cardiomyopathy, status post ICD 6. Overdue for pacemaker check/status appointment Disposition: Admission Luis Wilson DO Emergency Medicine Past Med/Surg History Problem List (Updated 08/03/24 @ 16:53 by Luis Wilson DO) Pre-syncope (Acute) Dyspnea Acute hyperglycemia (Acute) Somatic dysfunction of right side of chest wall Rib pain on right side Hyperlipidemia (Chronic) Hypertrophic cardiomyopathy (Chronic Unknown) SEES DR. LIU Chronic back pain Sleep apnea CPAP HTN (hypertension) (Acute) CKD (chronic kidney disease) (Acute) Biventricular ICD (implantable cardioverter-defibrillator) in place (~08/2017) Single-chamber ICD 2006; Dual-chamber ICD 04/2017; Biventricular ICD 08/06/17 - [employer] follow with Dr. Liu, last check was 08/2020 Chronic diastolic congestive heart failure Type 2 diabetes mellitus Hypertension (Acute) Acute hyperglycemia (Acute) Hyperosmolar hyperglycemic state (HHS) Chest pain (Acute) Elevated troponin (Acute) Medical History Demand ischemia Metabolic encephalopathy Acute confusion Complete heart block History of COVID-19 Hypokalemia Cough COVID-19 COVID-19 Obesity Pulmonary nodules DVT prophylaxis Right-sided chest pain LR (dyspnea on exertion) Depression Dyspnea on exertion History of complete heart block Osteoarthritis Valvular heart disease History of cardiac arrest Palpitations Closed fracture of cervical spine (Unknown) Surgical History S/P ventricular septal myectomy (~12/2015) S/P mitral valve repair (~12/2015) Hx of surgical procedure History of mitral valve repair History of esophagogastroduodenoscopy (EGD) History of cardiac cath History of appendectomy Family History Mother Family history of reaction to anesthesia PONV Grandfather (Maternal) Family history of diabetes mellitus Grandmother (Maternal) Family history of diabetes mellitus Social History Smoking Status: Former smoker Tobacco Type: Cigarettes Cigarettes Per Day: 1996; Second Hand Exposure: No; Do You Dip or Chew Tobacco: Yes; Hx Alcohol Use: Yes Alcohol type: beer, wine and hard liquor Hx Substance Use: Yes Last Used Substance: Days (ago) Last Used Substance Other:: 1 WEEK AGO Substance Use Type Other:: 1 time/week Preferred Language: [place] Communication Ability: Effective 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: No Beliefs That Will Affect Care: None Current Living Situation: Parent Current Living Situation Comment: mom Feels Safe at Home: Yes Assistive Devices: None Allergies Allergies Allergy/AdvReac Type Severity Reaction Status Date / Time erythromycin base Allergy Severe Anaphylaxis Verified 06/02/24 13:52 Home Meds Home Medications Medication Instructions Recorded Confirmed amlodipine 5 mg tablet 5 mg PO DAILY 06/02/24 08/03/24 baclofen 10 mg tablet 10 mg PO DAILY PRN Pain 06/02/24 08/03/24 cetirizine 10 mg tablet 10 mg PO DAILY PRN allergies 06/02/24 08/03/24 cholecalciferol (vitamin D3) PO DAILY 06/02/24 06/02/24 empagliflozin 10 mg tablet 10 mg PO DAILY 06/02/24 08/03/24 (Jardiance) hydrocodone 5 mg-acetaminophen 325 1 tab PO TID PRN Pain 06/02/24 08/03/24 mg tablet insulin glulisine U-100 100 1 sliding scale dose subcut 06/02/24 08/03/24 unit/mL subcutaneous pen (Apidra USEASDIRECTD SoloStar U-100 Insulin) losartan 100 mg tablet 100 mg PO DAILY 06/02/24 08/03/24 naproxen 500 mg tablet 500 mg PO BID PRN Pain 06/02/24 08/03/24 pregabalin 75 mg capsule 75 mg PO BID 06/02/24 08/03/24 semaglutide 1 mg/dose (4 mg/3 mL) 1 mg subcut ONCE 06/02/24 06/02/24 subcutaneous pen injector (Ozempic) tamsulosin 0.4 mg capsule 0.4 mg PO DAILY 06/02/24 08/03/24 Previous Rx's Medication Instructions Recorded blood-glucose sensor (FreeStyle #1 ea 12/15/22 Rodrick 3 Sensor device) insulin glargine 100 unit/mL (3 25 unit (0.25 mL) subcut BID #15 mL 12/15/22 mL) subcutaneous pen (Lantus Solostar U-100 Insulin) insulin glulisine U-100 100 12 - 16 unit (0.12 - 0.16 mL) 12/15/22 unit/mL subcutaneous pen (Apidra subcut ACHS #15 mL SoloStar U-100 Insulin) Results & Data (ED) Vital Signs Vital Signs - 24 hr 08/03/24 13:16 08/03/24 14:16 08/03/24 14:19 Temperature 36.2 C L Temperature Source Temporal Artery Scan Pulse Rate 95 H Pulse Rate [Apical] 88 Pulse Rate from SpO2 Sensor Pulse Rhythm [Apical] Regular Pulse Strength [Apical] Normal Respiratory Rate 19 22 Respiratory Effort / Characteristics Non-Labored Spontaneous Non-Labored Spontaneous Respiratory Depth Normal Normal Respiratory Pattern Regular Regular Blood Pressure 148/79 H 121/88 Blood Pressure [Left Arm] 121/88 Blood Pressure [Right Arm] Blood Pressure Mean 102 102 Blood Pressure Mean [Left Arm] 99 Blood Pressure Mean [Right Arm] Blood Pressure Position [Left Arm] Semi-fowlers Pulse Oximetry 94 93 Oxygen Delivery Method Room Air Room Air Sepsis Recent Fever Within 48 Hours No Sepsis New/Unexplained Change in Mental Status N/A Sepsis Action Taken by Nursing No Action Required 08/03/24 14:21 08/03/24 14:31 08/03/24 14:36 Temperature Temperature Source Pulse Rate 89 89 Pulse Rate [Apical] Pulse Rate from SpO2 Sensor 88 89 Pulse Rhythm [Apical] Pulse Strength [Apical] Respiratory Rate 18 18 Respiratory Effort / Characteristics Respiratory Depth Respiratory Pattern Blood Pressure 143/86 H Blood Pressure [Left Arm] Blood Pressure [Right Arm] Blood Pressure Mean 98 Blood Pressure Mean [Left Arm] Blood Pressure Mean [Right Arm] Blood Pressure Position [Left Arm] Pulse Oximetry 93 96 Oxygen Delivery Method Room Air Room Air Sepsis Recent Fever Within 48 Hours Sepsis New/Unexplained Change in Mental Status Sepsis Action Taken by Nursing 08/03/24 14:45 08/03/24 16:06 Temperature Temperature Source Pulse Rate 92 H Pulse Rate [Apical] 84 Pulse Rate from SpO2 Sensor Pulse Rhythm [Apical] Pulse Strength [Apical] Respiratory Rate 19 Respiratory Effort / Characteristics Non-Labored Spontaneous Respiratory Depth Normal Respiratory Pattern Regular Blood Pressure Blood Pressure [Left Arm] Blood Pressure [Right Arm] 135/85 Blood Pressure Mean Blood Pressure Mean [Left Arm] Blood Pressure Mean [Right Arm] 101 Blood Pressure Position [Left Arm] Pulse Oximetry 94 Oxygen Delivery Method Room Air Sepsis Recent Fever Within 48 Hours Sepsis New/Unexplained Change in Mental Status Sepsis Action Taken by Nursing Laboratory Data 08/03/24 13:42 08/03/24 13:42 Lab Results 08/03/24 08/03/24 08/03/24 Range/Units 13:42 13:45 15:41 WBC 4.04 L (4.8-10.8) K/ul RBC 5.57 (4.70-6.10) M/uL Hgb 16.4 (14.0-18.0) g/dl Hct 45.7 (42.0-52.0) % MCV 82.0 (80.0-100.0) fL MCH 29.4 (25.0-34.0) pg MCHC 35.9 (32.0-36.0) g/dL RDW Std Deviation 38.7 (36.4-46.3) fL RDW Coeff of Valeria 13.0 (11.5-14.5) % Plt Count 172 (130-400) K/uL MPV 11.5 (9.4-12.4) fL Immature Gran % (Auto) 0.2 % Neut % (Auto) 64.6 % Lymph % (Auto) 19.8 % [place] % (Auto) 11.9 % Eos % (Auto) 3.0 % Baso % (Auto) 0.5 % Neut # (Auto) 2.61 (1.40-6.50) K/uL Lymph # (Auto) 0.80 L (1.20-3.40) K/uL [place] # (Auto) 0.48 (0.11-0.59) K/uL Eos # (Auto) 0.12 (0.00-0.50) K/uL Baso # (Auto) 0.02 (0.00-0.20) K/uL Immature Gran # (Auto) 0.01 (0.01-0.20) K/uL PT 11.2 (9.0-12.0) Seconds INR 1.0 (0.9-1.1) APTT 31 (21-31) Seconds PTT Ratio 1.2 Sodium 138 (136-145) mmol/L Potassium 4.0 (3.5-5.1) mmol/L Chloride 106 (98-107) mmol/L Carbon Dioxide 26 (21-32) mmol/L Anion Gap 6 (3-11) BUN 19 (6-23) mg/dl Creatinine 0.92 (0.6-1.4) mg/dl Est Cr Clr Drug Dosing 145.0 ml/min eGFR 100.09 BUN/Creatinine Ratio 20.7 H (10-20) Glucose 190 H (70-99(Fasting)) mg/dl Calcium 9.2 (8.6-10.3) mg/dl Magnesium 1.8 (1.7-2.4) mg/dl Total Bilirubin 0.9 (0.2-1.0) mg/dl AST 29 (13-39) U/L ALT 25 (7-52) U/L Alkaline Phosphatase 60 (34-104) U/L Troponin I High Sens 49.5 H 49.7 H (0-20) pg/ml Total Protein 7.4 (6.0-8.3) gm/dl Albumin 4.4 (3.4-5.0) gm/dl Globulin 3.0 (2.5-4.0) gm/dl Albumin/Globulin Ratio 1.5 (0.9-2) Procalcitonin 0.07 (0-0.5) ng/ml Adenovirus (PCR) Not Detected (NotDetected) B. pertussis DNA (PCR) Not Detected (NotDetected) B.parapertussis DNA PCR Not Detected (NotDetected) C. pneumoniae DNA (PCR) Not Detected (NotDetected) Coronavirus OC43 (PCR) Not Detected (NotDetected) Coronavirus HKU1 (PCR) Not Detected (NotDetected) Coronavirus 229E (PCR) Not Detected (NotDetected) SARS-CoV-2 (PCR) Not Detected (NotDetected) Coronavirus NL63 (PCR) Not Detected (NotDetected) Human Metapneumovir PCR DETECTED A (NotDetected) Influenza Type A (PCR) Not Detected (NotDetected) Influenza Type B (PCR) Not Detected (NotDetected) M. pneumoniae (PCR) Not Detected (NotDetected) Parainfluenza 1 (PCR) Not Detected (NotDetected) Parainfluenza 2 (PCR) Not Detected (NotDetected) Parainfluenza 3 (PCR) Not Detected (NotDetected) Parainfluenza 4 (PCR) Not Detected (NotDetected) RSV (PCR) Not Detected (NotDetected) Entero/Rhino (PCR) Not Detected (NotDetected) Administered Medications Doxycycline Hyclate 100 mg/ (Dextrose) 100 mls @ 50 mls/hr IV NOW STA Stop: 08/03/24 17:27 Last Admin: 08/03/24 16:20 Dose: 50 mls/hr Documented By: [facility] Discontinued Medications Albuterol (Albut/Ipratrop 3mg/0.5mg Neb 3 Ml Vial) 3 ml NEB NOW STA; Protocol Stop: 08/03/24 14:20 Last Admin: 08/03/24 14:27 Dose: 3 ml Documented By: Sodium Chloride (Nss) 500 mls @ 999 mls/hr IV .Q31M ONE Stop: 08/03/24 14:50 Last Infusion: 08/03/24 15:00 Dose: Infused Documented By: Admin: 08/03/24 14:27 Dose: 999 mls/hr Documented By: Cefepime HCl (Maxipime 2000mg) 2,000 mg in 20 mls @ 5 mls/min IV NOW STA; Protocol Stop: 08/03/24 15:23 Last Admin: 08/03/24 16:07 Dose: 5 mls/min Documented By: DINO Imaging Data Radiologist's Impression: Chest X-Ray 08/03/24 13:22 XR chest 1V not portable CLINICAL HISTORY: Chest pain, nonspecific COMPARISON STUDY: Chest CT January 28, 2020. Chest radiograph December 12, 2022. FINDINGS: Left subclavian pacer/AICD is in place. There are median sternotomy wires and a prosthetic cardiac valve. Cardiomegaly is unchanged. There is no evidence for pulmonary edema. There is no pneumothorax or pleural effusion. Patchy right lower lung opacities are present. Left lung is clear. IMPRESSION: Patchy right lower lung opacities suggestive of pneumonia. Radiographic follow-up to ensure resolution is recommended. ACT 112: Negative or not required by law. Electronically signed by: Paul Metz M.D. 08/03/2024 2:41 PM Discharge Plan Visit Data Chief Complaint: Syncope (Near Syncope) Stated Complaint: COUGH, DIZZY, NEAR PASSING OUT, HEART PROBLEM ED Provider: Luis Wilson Discharge Problem: Pre-syncope Forms Stand Alone Forms: [facility] Prescriptions Prescriptions: No Action amlodipine 5 mg tablet 5 mg PO DAILY Apidra SoloStar U-100 Insulin 100 unit/mL insulin pen 1 sliding scale dose subcut USEASDIRECTD baclofen 10 mg tablet 10 mg PO DAILY PRN (Reason: Pain) cetirizine 10 mg tablet 10 mg PO DAILY PRN (Reason: allergies) hydrocodone-acetaminophen 5-325 mg tablet 1 tab PO TID PRN (Reason: Pain) Jardiance 10 mg tablet 10 mg PO DAILY losartan 100 mg tablet 100 mg PO DAILY naproxen 500 mg tablet 500 mg PO BID PRN (Reason: Pain) Ozempic 1 mg/dose (4 mg/3 mL) pen injector 1 mg subcut ONCE pregabalin 75 mg capsule 75 mg PO BID tamsulosin 0.4 mg capsule 0.4 mg PO DAILY cholecalciferol (vitamin D3) PO DAILY insulin glargine [Lantus Solostar U-100 Insulin] 100 unit/mL (3 mL) insulin pen 25 unit subcut BID Qty: 15 0RF Apidra SoloStar U-100 Insulin 100 unit/mL insulin pen 12 - 16 unit subcut ACHS Qty: 15 0RF Rx Instructions: TIDM and HS up to 64 units per day (DME) FreeStyle Rodrick 3 Sensor Device See Rx Instructions .Route Qty: 1 1RF Rx Instructions: for 2 weeks each Referrals Referrals: Kurt Choi CRNP [Nurse Practitioner] -
[2024-08-03] MEDS: SODIUM CHLORIDE 0.9% 500 ML IV ONE (14:27)
[2024-08-03] MEDS: ALBUT/IPRATROP 3MG/0.5MG NEB 3 ML VIAL NEB STA (14:27)
[2024-08-03 14:29] LABS: Albumin Globulin Ratio 1.5 (0.9-2); Albumin Level 4.4 gm/dl (3.4-5.0); BUN Creatinine Ratio 20.7 (10-20); Bilirubin,Total 0.9 mg/dl (0.2-1.0); Calcium 9.2 mg/dl (8.6-10.3); Total Protein 7.4 gm/dl (6.0-8.3)
[2024-08-03 14:35] LABS: Troponin I High Sensitivity 49.5 pg/ml (0-20)
[2024-08-03 14:38] LABS: Partial Thromboplastin Ratio 1.2; Partial Thromboplastin Time 31 Seconds (21-31); Prothrombin Time 11.2 Seconds (9.0-12.0)
--- NOTE | 2024-08-03 14:43 | XRay Report ---
XR chest 1V not portable CLINICAL HISTORY: Chest pain, nonspecific COMPARISON STUDY: Chest CT January 28, 2020. Chest radiograph December 12, 2022. FINDINGS: Left subclavian pacer/AICD is in place. There are median sternotomy wires and a prosthetic cardiac valve. Cardiomegaly is unchanged. There is no evidence for pulmonary edema. There is no pneum othorax or pleural effusion. Patchy right lower lung opacities are present. Left lung is clear. IMPRESSION: Patchy right lower lung opacities suggestive of pneumonia. Radiographic follow-up to ens ure resolution is recommended. ACT 112: Negative or not required by law. Electronically signed by: Paul Metz M.D. 08/03/2024 2:41 PM
[2024-08-03 14:47] LABS: Magnesium 1.8 mg/dl (1.7-2.4)
[2024-08-03 15:10] LABS: Adenovirus PCR Not Detected (NotDetected); Bordetella parapertussis PCR Not Detected (NotDetected); Bordetella pertussis PCR Not Detected (NotDetected); Chlamydia pneumoniae PCR Not Detected (NotDetected); Coronavirus 229E PCR Not Detected (NotDetected); Coronavirus CoV-2 (COVID19)PCR Not Detected (NotDetected); Coronavirus HKU1 PCR Not Detected (NotDetected); Coronavirus NL63 PCR Not Detected (NotDetected); Coronavirus OC43PCR Not Detected (NotDetected); Human Metapneumovirus PCR DETECTED (NotDetected); Influenza A PCR Not Detected (NotDetected); Influenza B PCR Not Detected (NotDetected); Mycoplasma pneumoniae PCR Not Detected (NotDetected); Parainfluenza Virus 1 PCR Not Detected (NotDetected); Parainfluenza Virus 2 PCR Not Detected (NotDetected); Parainfluenza Virus 3 PCR Not Detected (NotDetected); Parainfluenza Virus 4 PCR Not Detected (NotDetected); Respiratory Syncytial VirusPCR Not Detected (NotDetected); Rhinovirus/Enterovirus PCR Not Detected (NotDetected)
[2024-08-03] MEDS: CEFEPIME 2000MG 2,000 MG/20 ML SYR IV STA (16:07)
--- NOTE | 2024-08-03 16:14 | History & Physical Report ---
Date of Service August 03, 2024 Assessment & Plan (1) Hypertrophic cardiomyopathy: (2) CKD (chronic kidney disease): (3) Type 2 diabetes mellitus: Plan 53-year-old male with who presents with a period of presyncope associate with nonproductive cough. Found to have multifocal pneumonia on chest x-ray with confirmed human metapneumovirus on [employer]. Patient is initiated on community- acquired pneumonia antibiotics in the emergency department and blood cultures were obtained. Patient has a defibrillator in place had significant issues with lumbar spine disease with radicular pain and occasional incontinence. #Syncope patient be on a monitored setting will interrogate his pacemaker electrolytes are replete will recheck a magnesium in the morning typically sees Dr. Goldstein #Pneumonia concern for community-acquired pneumonia the patient be continued on ceftriaxone and doxycycline. Although he is due metapneumovirus infection given his hardware we will complete a 5-day course of antibiotics watching blood cultures. given coarse lung sounds was given one dose of decadron po 4 mg and decision to continue based on improvement #Troponin elevation in the context of hypertrophic cardiomyopathy and diastolic heart failure. Patient is not currently in heart failure at this time. Patient has a history of chronic troponin elevation we will trend these levels if there continues to be a persistent spike may consider further workup however given his history and lack of acute coronary changes on EKG will trend and make further decisions based upon the outcome of that #Diabetes. Patient says that with his Ozempic he usually has had good blood sugar control typically is listed to have long-acting insulin 25 twice daily sliding scale with correction factor of 20 and carb ratio 5+ he takes 12-16 with meals when his blood sugars are high however if his blood glucose is a good control he typically does not take the insulin at all. #Chronic kidney disease stage III likely from effects of hypertension diabetes DVT prevention will be Lovenox History of Present Illness Primary Care Provider: Roberta Arriaga PA-C 53-year-old gentleman with history of hypertrophic cardiomyopathy, status post ICD placement, who presented to the emergency department with a chief complaint of cough and wheezing plus symptoms of presyncopal . Patient states the symptoms have been ongoing for the past several days, patient states he has had harsh coughing episodes and when they occur he feels lightheaded and has felt as if he was "almost about to pass out". Patient denies any actual events where he lost consciousness. Mild troponin elevation without acute ECG changes, CXR is with changes concerning of pneumonia right lower lung infiltrates, started on antibiotics and obtained blood cultures- Human metapneumovirus found on PCR. PT has an AICD, and will have this interrogated , he did not feel that there was a discharge Allergies Allergy/AdvReac Type Severity Reaction Status Date / Time erythromycin base Allergy Severe Anaphylaxis Verified 06/02/24 13:52 Home Medications Medication Instructions Recorded Confirmed Type blood-glucose sensor (FreeStyle #1 ea 12/15/22 Rx Rodrick 3 Sensor device) insulin glargine 100 unit/mL (3 25 unit (0.25 mL) subcut BID #15 mL 12/15/22 08/03/24 Rx mL) subcutaneous pen (Lantus Solostar U-100 Insulin) insulin glulisine U-100 100 12 - 16 unit (0.12 - 0.16 mL) 12/15/22 08/03/24 Rx unit/mL subcutaneous pen (Apidra subcut ACHS #15 mL SoloStar U-100 Insulin) amlodipine 5 mg tablet 5 mg PO DAILY 06/02/24 08/03/24 History baclofen 10 mg tablet 10 mg PO DAILY PRN Pain 06/02/24 08/03/24 History cetirizine 10 mg tablet 10 mg PO DAILY PRN allergies 06/02/24 08/03/24 History cholecalciferol (vitamin D3) PO DAILY 06/02/24 06/02/24 History empagliflozin 10 mg tablet 10 mg PO DAILY 06/02/24 08/03/24 History (Jardiance) hydrocodone 5 mg-acetaminophen 325 1 tab PO TID PRN Pain 06/02/24 08/03/24 History mg tablet insulin glulisine U-100 100 1 sliding scale dose subcut 06/02/24 08/03/24 History unit/mL subcutaneous pen (Apidra USEASDIRECTD SoloStar U-100 Insulin) losartan 100 mg tablet 100 mg PO DAILY 06/02/24 08/03/24 History naproxen 500 mg tablet 500 mg PO BID PRN Pain 06/02/24 08/03/24 History pregabalin 75 mg capsule 75 mg PO BID 06/02/24 08/03/24 History semaglutide 1 mg/dose (4 mg/3 mL) 1 mg subcut ONCE 06/02/24 06/02/24 History subcutaneous pen injector (Ozempic) tamsulosin 0.4 mg capsule 0.4 mg PO DAILY 06/02/24 08/03/24 History Past Med/Surg History Problem List (Updated 08/03/24 @ 16:53 by Luis Wilson, ) Pre-syncope (Acute) Dyspnea Acute hyperglycemia (Acute) Somatic dysfunction of right side of chest wall Rib pain on right side Hyperlipidemia (Chronic) Hypertrophic cardiomyopathy (Chronic Unknown) SEES DR. LIU Chronic back pain Sleep apnea CPAP HTN (hypertension) (Acute) CKD (chronic kidney disease) (Acute) Biventricular ICD (implantable cardioverter-defibrillator) in place (~08/2017) Single-chamber ICD 2006; Dual-chamber ICD 04/2017; Biventricular ICD 08/06/17 - [employer] follow with Dr. Liu, last check was 08/2020 Chronic diastolic congestive heart failure Type 2 diabetes mellitus Hypertension (Acute) Acute hyperglycemia (Acute) Hyperosmolar hyperglycemic state (HHS) Chest pain (Acute) Elevated troponin (Acute) Medical History Demand ischemia Metabolic encephalopathy Acute confusion Complete heart block History of COVID-19 Hypokalemia Cough COVID-19 COVID-19 Obesity Pulmonary nodules DVT prophylaxis Right-sided chest pain LR (dyspnea on exertion) Depression Dyspnea on exertion History of complete heart block Osteoarthritis Valvular heart disease History of cardiac arrest Palpitations Closed fracture of cervical spine (Unknown) Surgical History S/P ventricular septal myectomy (~12/2015) S/P mitral valve repair (~12/2015) Hx of surgical procedure History of mitral valve repair History of esophagogastroduodenoscopy (EGD) History of cardiac cath History of appendectomy Family History Mother Family history of reaction to anesthesia PONV Grandfather (Maternal) Family history of diabetes mellitus Grandmother (Maternal) Family history of diabetes mellitus Social History Smoking Status: Never smoker Tobacco Type: Cigarettes Cigarettes Per Day: 1996; Second Hand Exposure: No; Do You Dip or Chew Tobacco: No; Tobacco Cessation Education Requested by Patient: No Hx Alcohol Use: No Hx Substance Use: No Preferred Language: Turkmen Communication Ability: Effective Associate Director Regulatory Affairs Required: No Beliefs That Will Affect Care: None Current Living Situation: Significant Other Current Living Situation Comment: mom Other Information That Helps Us Care for You: No Feels Safe at Home: Yes Safety Concerns: Feels Safe At This Time Assistive Devices: None Review of Systems Review of Systems: Mild To moderate respiratory distress and fatigue no headache, no visual changes no speech or swallowing issues no chest pain, pressure or palpitations Shortness of breath nonproductive cough no wheezes no abdominal pain, nausea or vomiting, diarrhea or constipation no dysuria, hematuria or frequency no focal joint pain or swelling no back pain, CVA tenderness or radicular pain no bruising, bleeding or rashes no focal signs of weakness or numbness or altered sensation no complaints of anxiety or depression.. Physical Exam Physical Exam: The patient appeared well nourished and normally developed. Vital signs as documented. He was saturating well on room air Head exam is normocephalic atraumatic Neck is without JVD, thyromegaly, or carotid bruits. Lungs are coarse breath sounds bilaterally expiratory wheezes no focal loss Cardiac exam, Rhythm is regular.. No murmurs, rubs or gallops. Abdominal exam reveals normal bowel sounds, soft non tender, no masses Extremities are nonedematous and both pedal pulses are present Neurologic exam is alert and oriented, no focal loss of strength or sensation Skin is without bruises or rashes Psychologically is without concerns for anxiety or depression.. Results & Data Results & Data Vital Signs (Past 12 Hours) Vital Signs Temp Pulse Pulse Resp BP BP Pulse Ox 08/03/24 14:45 92 H 08/03/24 14:36 89 18 96 08/03/24 14:31 143/86 H 08/03/24 14:21 89 18 93 08/03/24 14:19 88 22 121/88 93 08/03/24 14:16 121/88 08/03/24 13:16 97.2 F L 95 H 19 148/79 H 94 O2 Del Method 08/03/24 14:45 08/03/24 14:36 Room Air 08/03/24 14:31 08/03/24 14:21 Room Air 08/03/24 14:19 Room Air 08/03/24 14:16 08/03/24 13:16 Room Air Code Status & VTE Plan VTE Prophylaxis Plan VTE Prophylaxis will be ordered: No PG Care Time/CCT Total # of Minutes Spent Total Time Spent with Patient: Total time spent is greater than 50% in coordination of care (as documented) at patient's floor/unit and/or counseling patient: Coding Level of Care Code 12608 INT INP/OBS CARE 375MIN Diagnoses Hypertrophic cardiomyopathy I42.2 CKD (chronic kidney disease) N18.9 Chronic kidney disease stage: unspecified stage Type 2 diabetes mellitus with hyperglycemia, with long-term current use of insulin E11.65; Z79.4 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 complication status: with hyperglycemia 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 prison insulin use: with prison use (2) CKD (chronic kidney disease) Chronic kidney disease stage: unspecified stage Qualified Code(s): N18.9 - Chronic kidney disease, unspecified (3) Type 2 diabetes mellitus 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 complication status: with hyperglycemia 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 prison insulin use: with prison use Qualified Code(s): E11.65 - Type 2 diabetes mellitus with hyperglycemia; Z79.4 - 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
[2024-08-03] MEDS: DOXYCYCLINE HYCLATE 100 MG in DEXTROSE 5% MINI-B 100 ML IV STA (16:20)
[2024-08-03] MEDS ORDERED: DEXTROSE 50% 50 ML SYRINGE IV PRN (18:25)
[2024-08-03] MEDS ORDERED: ONDANSETRON INJ 2 MG/ML 2 ML VIAL IV PRN (18:25)
[2024-08-03] MEDS ORDERED: ALBUTEROL 0.5% NEB SOLN 2.5 MG/0.5 ML VIAL NEB PRN (18:25)
[2024-08-03] MEDS ORDERED: ACETAMINOPHEN 325 MG TAB PO PRN (18:25)
[2024-08-03] MEDS ORDERED: CARBOHYDRATES FOR HYPOGLYCEMIA PO PRN (18:25)
[2024-08-03] MEDS ORDERED: GLUCOSE 10 TAB/TUBE PO PRN (18:25)
[2024-08-03] MEDS ORDERED: GLUCOSE 40% GEL 15 GM TUBE PO PRN (18:25)
[2024-08-03] MEDS ORDERED: GLUCAGON FOR INJ 1 MG VIAL SQ PRN (18:25)
[2024-08-03] MEDS: INSULIN ASPART PER UNIT CHARGE SC SCH (18:57)
[2024-08-03] MEDS: HYDROCODONE/ACETAMOPHEN 5/325MG TAB PO PRN (19:09)
[2024-08-03] MEDS: cefTRIAXone SODIUM 2,000 MG/50 ML BAG IV SCH (19:37)
[2024-08-03] MEDS: dexAMETHasone 4 MG TAB PO ONE (19:38)
[2024-08-03] MEDS: LANTUS PER UNIT CHARGE SQ SCH (20:35)
[2024-08-04 02:23] LABS: Hematocrit (blood only) 46.5 % (42.0-52.0); Hemoglobin 16.3 g/dl (14.0-18.0); Mean Corpuscular Hgb Conc 35.1 g/dL (32.0-36.0); Mean Corpuscular Volume 82.7 fL (80.0-100.0); Mean Platelet Volume 11.4 fL (9.4-12.4); Platelet Count 166 K/uL (130-400); RDW Coefficient of Variation 13.2 % (11.5-14.5); RDW Standard Deviation 39.5 fL (36.4-46.3); Red Blood Count 5.62 M/uL (4.70-6.10); White Blood Count 4.24 K/ul (4.8-10.8)
[2024-08-04 02:32] LABS: BUN Creatinine Ratio 19.3 (10-20); Calcium 9.1 mg/dl (8.6-10.3); Creatinine Clr Calc Pharmacy 151.6 ml/min; Potassium 4.4 mmol/L (3.5-5.1)
[2024-08-04] MEDS: DOXYCYCLINE HYCLATE 100 MG in DEXTROSE 5% MINI-B 100 ML IV SCH (03:07)
[2024-08-04 07:18] LABS: Estimated Average Glucose 148 mg/dl; Hemoglobin A1C 6.8 % (4.5-5.6)
--- NOTE | 2024-08-04 08:08 | Hospitalist Progress Note ---
Date of Service August 04, 2024 Assessment & Plan (1) Hypertrophic cardiomyopathy: (2) CKD (chronic kidney disease): (3) Type 2 diabetes mellitus: Plan 53-year-old male with who presents with a period of presyncope associate with nonproductive cough. Found to have multifocal pneumonia on chest x-ray with confirmed human metapneumovirus on [employer]. Patient is initiated on community- acquired pneumonia antibiotics in the emergency department and blood cultures were obtained. Patient has a defibrillator in place had significant issues with lumbar spine disease with radicular pain and occasional incontinence. #Syncope without arrythmia on monitor and negative interrogation of pacemaker, electrolytes remain replete typically sees Dr. Goldstein #Pneumonia concern for community-acquired pneumonia the patient be continued on ceftriaxone and doxycycline. Although metapneumovirus infection given his hardware we will complete a 5-day course of antibiotics watching blood cultures. given coarse lung sounds was given two doses of decadron #Troponin elevation in the context of hypertrophic cardiomyopathy and diastolic heart failure. Patient is not currently in heart failure at this time. Patient has a history of chronic troponin elevation trend downgoing, this is demand ischemia not acs #Diabetes. Patient says that with his Ozempic he usually has had good blood sugar control typically is listed to have long-acting insulin 25 twice daily sliding scale with correction factor of 20 and carb ratio 5+ he takes 12-16 with meals when his blood sugars are high however if his blood glucose is a good control he typically does not take the insulin at all. #Chronic kidney disease stage III likely from effects of hypertension diabetes DVT prevention will be Lovenox Admission and Anticipated Discharge Date Admission Date: August 03, 2024 Subjective PT feels improved but not yet back to baseline still gets lightheaded with coughing Physical Exam Physical Exam: very coarse breath sounds bilaterally, no focal loss Results & Data Results & Data Vital Signs (Past 12 Hours) Vital Signs Temp Pulse Pulse Resp BP Pulse Ox O2 Del Method 08/04/24 07:18 73 08/04/24 02:46 98.4 F 71 18 137/71 93 Room Air 08/03/24 23:40 99.0 F 76 18 144/86 H 93 Room Air Laboratory Results reviewed cbc reviewed chemistry PG Care Time/CCT Total # of Minutes Spent Total Time Spent with Patient: Total time spent is greater than 50% in coordination of care (as documented) at patient's floor/unit and/or counseling patient: Coding Level of Care Code 47559 SUB INP/OBS CARE MIN Diagnoses Hypertrophic cardiomyopathy I42.2 CKD (chronic kidney disease) N18.9 Chronic kidney disease stage: unspecified stage Type 2 diabetes mellitus with hyperglycemia, with long-term current use of insulin E11.65; Z79.4 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 complication status: with hyperglycemia 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 retirement insulin use: with terminal superintendent use (2) CKD (chronic kidney disease) Chronic kidney disease stage: unspecified stage Qualified Code(s): N18.9 - Chronic kidney disease, unspecified (3) Type 2 diabetes mellitus 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 complication status: with hyperglycemia 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 retirement insulin use: with terminal superintendent use Qualified Code(s): E11.65 - Type 2 diabetes mellitus with hyperglycemia; Z79.4 - terminal superintendent (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
[2024-08-04] MEDS: ENOXAPARIN INJ 40 MG/0.4 ML SYR SQ SCH (08:34)
[2024-08-04] MEDS: LOSARTAN POTASSIUM 50 MG TAB PO SCH (08:34)
[2024-08-04] MEDS: amLODIPine BESYLATE 5 MG TAB PO SCH (08:35)
[2024-08-04] MEDS: CETIRIZINE HCL 10 MG TABLET PO PRN (08:35)
[2024-08-04] MEDS: TAMSULOSIN HCL 0.4 MG CAP PO SCH (08:35)
[2024-08-04] MEDS ORDERED: DEXAMETHASONE SOD INJ 4 MG/ML VIAL IV ONE (16:18)
[2024-08-04] MEDS: dexAMETHasone 6 MG in SYRINGE 0 ML IV ONE (18:00)
[2024-08-04] MEDS: BACLOFEN 10 MG TAB PO PRN (18:01)
[2024-08-04] MEDS: PROMETHAZINE HCL 12.5 MG/10 ML UDP PO PRN (20:23)
[2024-08-05 03:29] VITALS: TEMP 97.7
[2024-08-05 07:55] VITALS: PULSE 76; RESP 19; O2SAT 95
[2024-08-05 08:29] LABS: Hematocrit (blood only) 48.3 % (42.0-52.0); Hemoglobin 16.7 g/dl (14.0-18.0); Mean Corpuscular Hemoglobin 28.9 pg (25.0-34.0); Mean Corpuscular Hgb Conc 34.6 g/dL (32.0-36.0); Mean Corpuscular Volume 83.7 fL (80.0-100.0); Mean Platelet Volume 11.5 fL (9.4-12.4); Platelet Count 193 K/uL (130-400); RDW Coefficient of Variation 13.2 % (11.5-14.5); Red Blood Count 5.77 M/uL (4.70-6.10); White Blood Count 5.37 K/ul (4.8-10.8)
[2024-08-05 08:37] LABS: BUN Creatinine Ratio 29.2 (10-20); Calcium 9.4 mg/dl (8.6-10.3); Creatinine Clr Calc Pharmacy 151.9 ml/min; Potassium 4.2 mmol/L (3.5-5.1)
[2024-08-05] MEDS: cefUROXime axetil 500 MG TAB PO SCH (09:35)
[2024-08-05] MEDS: DOXYCYCLINE HYCLATE 100 MG CAP PO SCH (09:35)
[2024-08-05 11:55] VITALS: BP 134/95
--- NOTE | 2024-08-05 16:21 | Discharge Summary ---
Discharge Summary Date of Service August 05, 2024 Principal Dx & Hospital Course #1 = Principal Diagnosis (1) Hypertrophic cardiomyopathy: (2) CKD (chronic kidney disease): (3) Type 2 diabetes mellitus: (4) Pre-syncope: (5) Community acquired pneumonia: (6) Infection due to human metapneumovirus (hMPV): (7) Chronic diastolic congestive heart failure: Plan 53-year-old male with who presents with a period of presyncope associate with nonproductive cough. Found to have multifocal pneumonia on chest x-ray with confirmed human metapneumovirus on [employer]. he was treated for community- acquired pneumonia with ceftriaxone and doxycycline, no further near syncope, symptomatically improved stable for discharge home to complete oral antibiotics # presyncope related to pulmonary infection No arrythmia on monitor and negative interrogation of pacemaker, electrolytes remain replete typically sees Dr. Goldstein # metapneumovirus infection, community-acquired pneumonia he was given 2 doses of Decadron for some mild bronchospasm related to the metapneumovirus based on his chest x-ray he might have superimposed, because he does have pacemaker leads we decided to treat him with antibiotics. He will finish the course of cefuroxime and doxycycline - repeat chest x-ray is advised in 4 to 6 weeks to make sure he clears the patchy right lower lobe infiltrate - admission blood cultures no growth to date, not yet finalized #Troponin elevation in the context of hypertrophic cardiomyopathy and diastolic heart failure. Patient is not currently in heart failure at this time. Patient has a history of chronic troponin elevation trend downgoing, this is demand ischemia not acs #Diabetes type II. he is well-controlled at home with his Ozempic and infrequent need for insulin #Chronic kidney disease stage III likely from effects of hypertension diabetes. stable # morbid obesity with BMI of 41with the Ozempic he has lost around 35 pounds and his diabetes has become easy to control Notes For Next Care Provider community-acquired pneumonia, metapneumovirus repeat chest x-ray is advised in 4 to 6 weeks to make sure he clears the patchy right lower lobe infiltrate admission blood cultures no growth to date, not yet finalized Medication Changes From Visit cefuroxime and doxycycline for few more days Admission HPI Per Admitting Provider 53-year-old gentleman with history of hypertrophic cardiomyopathy, status post ICD placement, who presented to the emergency department with a chief complaint of cough and wheezing plus symptoms of presyncopal . Patient states the symptoms have been ongoing for the past several days, patient states he has had harsh coughing episodes and when they occur he feels lightheaded and has felt as if he was "almost about to pass out". Patient denies any actual events where he lost consciousness. Mild troponin elevation without acute ECG changes, CXR is with changes concerning of pneumonia right lower lung infiltrates, started on antibiotics and obtained blood cultures- Human metapneumovirus found on PCR. PT has an AICD, and will have this interrogated , he did not feel that there was a discharge Discharge Exam PHYSICAL EXAMINATION Last 24h vital signs reviewed, see documentation in flowsheet General: comfortable appearing, no distress, sitting up on edge of the bed HEENT: Normocephalic, atraumatic, pupils round and equal, sclerae anicteric, no conjunctival injection, moist mucus membranes Lungs: Normal respiratory effort. Clear to auscultation bilaterally. No RRW Heart: Regular rate and rhythm, no murmurs. No JVD Abdomen: Soft, nontender, nondistended. Bowel sounds present. Extremities: Warm, dry, well-perfused. minimal lower extremity edema. Neuro: Alert and oriented x 4, face symmetric, moves 4 extremities well Psych: Normal affect and behavior Discharge Plan Discharge Items Patient Disposition: Home - Self-Care Reason For Visit: PNEUMONIA SYNCOPE Discharge Diagnosis: Metapneumovirus infection, community acquired pneumonia Activity: Resume your previous activity Non-emergency contact: Primary Care Provider Call non-emergency contact if: you have any medication questions, your symptoms worsen and your temperature is above 101 Follow-up/Referrals: Roberta Arriaga PA-C [Primary Care Provider] - (Pt states that he will call PCP to schedule follow up) Diet: Carb Consistent or DM2 Addtl Attending Provider Instructions: Pneumonia - from metapneumovirus and possible bacterial pneumonia on top of that -finish a few more days of antibiotics - cefuroxime and doxycycline -you can take over the counter cough medicine as needed Ask your primary care doctor to order a repeat chest x-ray in 4 to 6 weeks to make sure the right lower lobe of your lungs clears up Pending Studies at Discharge: Yes (blood cultures not finalized yet - negative to date) Stand-Alone Forms: My [facility], Smoking Cessation Medications and DC Order Prescriptions: New cefuroxime axetil 500 mg Tablet 500 mg PO BID Qty: 6 0RF doxycycline hyclate 100 mg Capsule 100 mg PO BID Qty: 6 0RF Continued amlodipine 5 mg tablet 5 mg PO DAILY Apidra SoloStar U-100 Insulin 100 unit/mL insulin pen 1 sliding scale dose subcut USEASDIRECTD baclofen 10 mg tablet 10 mg PO DAILY PRN (Reason: Pain) cetirizine 10 mg tablet 10 mg PO DAILY PRN (Reason: allergies) hydrocodone-acetaminophen 5-325 mg tablet 1 tab PO TID PRN (Reason: Pain) Jardiance 10 mg tablet 10 mg PO DAILY losartan 100 mg tablet 100 mg PO DAILY naproxen 500 mg tablet 500 mg PO BID PRN (Reason: Pain) Ozempic 1 mg/dose (4 mg/3 mL) pen injector 1 mg subcut ONCE pregabalin 75 mg capsule 75 mg PO BID tamsulosin 0.4 mg capsule 0.4 mg PO DAILY cholecalciferol (vitamin D3) PO DAILY insulin glargine [Lantus Solostar U-100 Insulin] 100 unit/mL (3 mL) insulin pen 25 unit subcut BID Qty: 15 0RF Apidra SoloStar U-100 Insulin 100 unit/mL insulin pen 12 - 16 unit subcut ACHS Qty: 15 0RF Rx Instructions: TIDM and HS up to 64 units per day (DME) FreeStyle Rodrick 3 Sensor Device See Rx Instructions .Route Qty: 1 1RF Rx Instructions: for 2 weeks each Discharge Orders: Discharge Order (Routine); Ordered 08/05/24 Ordered By: Cristy Nassar/Other Patient Handouts: Managing Type 2 Diabetes Admission Data Admit Date/Time: 08/03/24 15:54 Attending Provider: Cristy Curtis Admit Provider: Matthias Aguilar Primary Care Provider: Roberta Arriaga Other Providers: Matthias Aguilar Other Interventions: Discharge Summary Assessment (RN) Last Done: 08/05/24 11:55 Hospital Stay Data Consultations 08/03/24 15:48 ED Decision to Admit Stat Diagnostic Imagining Performed Chest X-Ray 08/03/24 13:22 XR chest 1V not portable CLINICAL HISTORY: Chest pain, nonspecific COMPARISON STUDY: Chest CT January 28, 2020. Chest radiograph December 12, 2022. FINDINGS: Left subclavian pacer/AICD is in place. There are median sternotomy wires and a prosthetic cardiac valve. Cardiomegaly is unchanged. There is no evidence for pulmonary edema. There is no pneumothorax or pleural effusion. Patchy right lower lung opacities are present. Left lung is clear. IMPRESSION: Patchy right lower lung opacities suggestive of pneumonia. Radiographic follow-up to ensure resolution is recommended. ACT 112: Negative or not required by law. Electronically signed by: Paul Metz M.D. 08/03/2024 2:41 PM 08/05/24 08/05/24 08/05/24 Range/Units 11:24 08:07 07:14 WBC 5.37 (4.8-10.8) K/ul RBC 5.77 (4.70-6.10) M/uL Hgb 16.7 (14.0-18.0) g/dl Hct 48.3 (42.0-52.0) % MCV 83.7 (80.0-100.0) fL MCH 28.9 (25.0-34.0) pg MCHC 34.6 (32.0-36.0) g/dL RDW Std Deviation 40.0 (36.4-46.3) fL RDW Coeff of Valeria 13.2 (11.5-14.5) % Plt Count 193 (130-400) K/uL MPV 11.5 (9.4-12.4) fL Sodium 136 (136-145) mmol/L Potassium 4.2 (3.5-5.1) mmol/L Chloride 101 (98-107) mmol/L Carbon Dioxide 32 (21-32) mmol/L Anion Gap 3 (3-11) BUN 26 H (6-23) mg/dl Creatinine 0.89 (0.6-1.4) mg/dl Est Cr Clr Drug Dosing 151.9 ml/min eGFR 103.11 BUN/Creatinine Ratio 29.2 H (10-20) Glucose 176 H (70-99(Fasting)) mg/dl POC Glucose 143 H 156 H (70-99) mg/dl Calcium 9.4 (8.6-10.3) mg/dl Troponin I High Sens (0-20) pg/ml 08/04/24 08/04/24 Range/Units 20:10 18:30 WBC (4.8-10.8) K/ul RBC (4.70-6.10) M/uL Hgb (14.0-18.0) g/dl Hct (42.0-52.0) % MCV (80.0-100.0) fL MCH (25.0-34.0) pg MCHC (32.0-36.0) g/dL RDW Std Deviation (36.4-46.3) fL RDW Coeff of Valeria (11.5-14.5) % Plt Count (130-400) K/uL MPV (9.4-12.4) fL Sodium (136-145) mmol/L Potassium (3.5-5.1) mmol/L Chloride (98-107) mmol/L Carbon Dioxide (21-32) mmol/L Anion Gap (3-11) BUN (6-23) mg/dl Creatinine (0.6-1.4) mg/dl Est Cr Clr Drug Dosing ml/min eGFR BUN/Creatinine Ratio (10-20) Glucose (70-99(Fasting)) mg/dl POC Glucose 153 H (70-99) mg/dl Calcium (8.6-10.3) mg/dl Troponin I High Sens 47.3 H D (0-20) pg/ml Pending Results Patient Have Any Pending Studies at Discharge: Yes (blood cultures not finalized yet - negative to date) Discharge Instructions Given to Patient (Per Discharging Provider) Pneumonia - from metapneumovirus and possible bacterial pneumonia on top of that -finish a few more days of antibiotics - cefuroxime and doxycycline -you can take over the counter cough medicine as needed Ask your primary care doctor to order a repeat chest x-ray in 4 to 6 weeks to make sure the right lower lobe of your lungs clears up Total Time Total Time Spent Total Time Spent (In Minutes): less than 30 minutes Coding Level of Care Code 95898 IN/OBS DISCH 30 MIN/LESS Diagnoses Hypertrophic cardiomyopathy I42.2 CKD (chronic kidney disease) N18.9 Chronic kidney disease stage: unspecified stage Type 2 diabetes mellitus with hyperglycemia, with long-term current use of insulin E11.65; Z79.4 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 predatory animal exterminator insulin use: with residential use 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 complication status: with hyperglycemia Pre-syncope R55 Community acquired pneumonia J18.9 Infection due to human metapneumovirus (hMPV) B34.8 Chronic diastolic congestive heart failure I50.32
== END 2024-08-05 12:35 | disposition home or self-care (01) | DRG 194 ==
LOC: ED 13:14 → SUATTDRO 15:54 → 2E 15:54

== ENCOUNTER 2025-04-25 13:21 | Inpatient (IN) ==
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
[2025-04-25 13:46] LABS: Hematocrit (blood only) 48.1 % (42.0-52.0); Hemoglobin 16.9 g/dL (14.0-18.0); Immature Granulocytes # (auto) 0.02 K/uL (0.01-0.20); Immature Granulocytes % (auto) 0.3 %; Mean Corpuscular Hemoglobin 29.1 pg (25.0-34.0); Mean Corpuscular Volume 82.8 fL (80.0-100.0); Platelet Count 170 K/uL (130-400); RDW Standard Deviation 40.7 fL (36.4-46.3); Red Blood Count 5.81 M/uL (4.70-6.10); White Blood Count 5.99 K/ul (4.8-10.8)
[2025-04-25] MEDS: ALBUT/IPRATROP 3MG/0.5MG NEB 3 ML VIAL NEB STA (13:54)
--- NOTE | 2025-04-25 13:55 | XRay Report ---
Clinical History: Chest pain Technique: A frontal view of the chest was obtained Findings: There are no confluent pulmonary infiltrates. The heart size is within normal limits. No pleural effusion or pneumothorax is seen. There is no definite pulmonary nodule. No fracture is noted. There is a left chest wall pacemaker device. Sternal wires are present Impression: No active disease Electronically signed by Jesse Albrceht 04-25-2025 13:55 PM
[2025-04-25 14:07] LABS: Alanine Aminotransferase 26.0 U/L (7-52); Albumin Globulin Ratio 1.5 (0.9-2); Albumin Level 4.3 gm/dl (3.4-5.0); Alkaline Phosphatase 71.0 U/L (34-104); Anion Gap 8.0 (3-11); Bilirubin,Total 0.9 mg/dl (0.2-1.0); Blood Urea Nitrogen 25.0 mg/dl (6-23); Calcium 9.1 mg/dl (8.6-10.3); Carbon Dioxide 26.0 mmol/L (21-32); Chloride 103.0 mmol/L (98-107); Creatinine Clr Calc Pharmacy 145.1 ml/min; Globulin 2.9 gm/dl (2.5-4.0); Glucose 269.0 mg/dl (70-99(Fasting)); Lipase 14.0 U/L (11-82); Magnesium 1.9 mg/dl (1.7-2.4); Potassium 4.3 mmol/L (3.5-5.1); Sodium 137.0 mmol/L (136-145); Total Protein 7.2 gm/dl (6.0-8.3)
[2025-04-25 14:33] LABS: Influenza A virus by PCR Negative (Neg); Influenza B virus by PCR Negative (Neg); SARS CoV2 RNA(COVID-19) Ceph NEGATIVE (Negative)
[2025-04-25 15:44] LABS: INR 1.0 (0.9-1.1); Partial Thromboplastin Time 29 Seconds (21-31); Prothrombin Time 11.0 Seconds (9.0-12.0)
[2025-04-25] MEDS: FUROSEMIDE 40 MG/4 ML VIAL IV ONE (16:33)
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
[2025-04-25 17:37] LABS: Appearance Urine Clear (Clear); Bacteria Urine Automated None Seen (None Seen); Cast Urine Automated 0-2 /lpf (0-2); Epithelial Cell Urine Auto 0-2 /hpf (0-2); Glucose Urine UA 1+ (Negative); RBC Urine Automated 0-2 /hpf (0-2); WBC Urine Automated 0-5 /hpf (0-5)
[2025-04-25] MEDS ORDERED: DEXTROSE 50% 50 ML SYRINGE IV PRN (20:32)
[2025-04-25] MEDS ORDERED: GLUCOSE 40% GEL 15 GM TUBE PO PRN (20:32)
[2025-04-25] MEDS ORDERED: HYDROCODONE/ACETAMOPHEN 5/325MG TAB PO PRN (20:32)
[2025-04-25] MEDS ORDERED: CARBOHYDRATES FOR HYPOGLYCEMIA PO PRN (20:32)
[2025-04-25] MEDS ORDERED: BACLOFEN 10 MG TAB PO PRN (20:32)
[2025-04-25] MEDS ORDERED: GLUCAGON FOR INJ 1 MG VIAL SQ PRN (20:32)
[2025-04-25] MEDS ORDERED: ONDANSETRON INJ 2 MG/ML 2 ML VIAL IV PRN (20:32)
[2025-04-25] MEDS ORDERED: POLYETHYLENE (MIRALAX) 17 GM PACK PO PRN (20:32)
[2025-04-25] MEDS ORDERED: ACETAMINOPHEN 325 MG TAB PO PRN (20:32)
[2025-04-25] MEDS ORDERED: GLUCOSE 10 TAB/TUBE PO PRN (20:32)
[2025-04-25] MEDS: ENOXAPARIN INJ 40 MG/0.4 ML SYR SQ SCH (21:15)
[2025-04-25] MEDS: INSULIN ASPART PER UNIT CHARGE SC SCH (21:15)
[2025-04-25] MEDS: LANTUS PER UNIT CHARGE SC SCH (21:15)
[2025-04-25] MEDS: TAMSULOSIN HCL 0.4 MG CAP PO SCH (21:15)
[2025-04-26 06:26] LABS: Anion Gap 7.0 (3-11); Blood Urea Nitrogen 27.0 mg/dl (6-23); Calcium 9.2 mg/dl (8.6-10.3); Carbon Dioxide 30.0 mmol/L (21-32); Chloride 101.0 mmol/L (98-107); Creatinine Clr Calc Pharmacy 137.5 ml/min; Glucose 251.0 mg/dl (70-99(Fasting)); Magnesium 2.0 mg/dl (1.7-2.4); Potassium 3.9 mmol/L (3.5-5.1); Sodium 138.0 mmol/L (136-145)
[2025-04-26 06:42] LABS: Thyroid Stimulating Hormone 1.556 uIu/ml (0.300-4.500)
[2025-04-26 08:03] LABS: Hemoglobin A1C 8.9 % (4.5-5.6)
[2025-04-26] MEDS: LOSARTAN POTASSIUM 50 MG TAB PO SCH (08:32)
[2025-04-26] MEDS: CETIRIZINE HCL 10 MG TABLET PO PRN (08:32)
--- NOTE | 2025-04-26 08:45 | Hospitalist Progress Note ---
Date of Service April 26, 2025 Assessment & Plan (1) Chronic diastolic congestive heart failure: (2) HTN (hypertension): (3) Type 2 diabetes mellitus: Plan This patient is a 54-year-old male with a history of HCM s/p septal myectomy, BiV ICD, MVR, myocardial bridging of the mid LAD, HLD, HTN, chronic HFpEF, DM2, pulmonary nodules, obesity BMI 41.2, MEENU on CPAP, chronic lower back pain with lumbar radiculopathy, BPH, who presents to the ED with worsening shortness of breath, dyspnea on exertion, and chest tightness for 5 days. He is admitted for acute on chronic HFpEF and elevated troponin/myocardial demand ischemia. #Acute on chronic HFpEF/HCM s/p septal myectomy/BiV ICD/MVR/HTN/HLD/elevated troponin-CHF exacerbation likely on the basis of excessive sodium use from eating out at restaurants, excessive drinking of fluids throughout the day. Also, he never picked up amlodipine after it was restarted and reports that his blood pressures at home have been quite elevated. He also is no longer on Jardiance-he reports someone told him to stop it at some point due to his kidney function being down. Elevated troponin stable on repeat check and likely myocardial demand ischemia in the setting of CHF. -Admit to PCU for telemetry monitoring - Received 1 dose of Lasix 40 mg IV in the ED-reassess in the morning for further IV Lasix-caution with history of HCM - Check echo - Resume home amlodipine 5 mg daily which he has been off of for many months - Continue home losartan 100 mg daily - Continue lasix 40mg IV daily in the AM, still above optimal volume on exam. He reports about 1.3L net UOP/diuresis with the first dose. Will proceed cautiiously as he is likely quite preload/volume sensitive given his HCM history. - check standing scale daily weight in the AM - Add duoneb scheduled [place]. - Cadiology consult P #Elevated troponin -stable, demand in the setting of HFpEF as above - no additional trend unless echo report indicates need #DM2 with hyperglycemia-BPs have been quite elevated at home he thinks from the stress of the heart failure. He is no longer on Jardiance but is on Ozempic. - BSG's AC and at bedtime - Continue home Lantus 25 units twice daily and give NovoLog supplemental insulin with meals and at bedtime - A1c 8.9%, at goal for the short term, close o/p follow-up - Diabetic diet #Pulmonary nodule/MEENU on CPAP-he actually no longer has a CPAP machine at home and is trying to get a new sleep study but having issues with insurance authorization - Give CPAP in the hospital at 11 cm H2O - Outpatient sleep study to qualify for new CPAP #Chronic lower back pain/lumbar radiculopathy-recently had injections for this which is helping - No longer takes baclofen that much but will use as needed - Is prescribed hydrocodone but has not taken it much at all-use as needed #BPH/urinary incontinence-patient has run out of tamsulosin at home and felt that it really helped with his urinary frequency symptoms. - Restart tamsulosin 0.4 mg p.o. at bedtime and he will need a 30-day supply of this on discharge #Obesity BMI 41.2-patient has been losing weight since being on Ozempic - Resume Ozempic on discharge - Continue to encourage weight loss, close o/p followup as above. DVT prophylaxis-Lovenox SQ, SCDs Disposition-continue PCU pending cardiology consult, tele if needed, currently day to day depending on diuresis and response. Admission and Anticipated Discharge Date Admission Date: April 25, 2025 Subjective Doing a bit better overnight, this AM feeling back to chest tightness and congestion, still with dry cough. Reports he urinated quite a bit after emir ER lasix dose but back to normal overnight and this AM. Only takes lasix PRN at home. No new or different symptoms. He would like duonebs as they have helped in the past when this occurs. Physical Exam Constitutional: WD/WN, vitals as above + obese Eyes: PERRL, conjunctivae normal, anicteric sclerae Neck: trachea midline, no thyromegaly Respiratory: normal respiratory effort; no cough Auscultation: + rhonchi (bilaterally on posterior exam R > L); no crackles and no rales Cardiovascular: RRR, no murmur, no edema Chest (Breasts): Chest: normal inspection of chest Gastrointestinal (Abdomen): normal bowel sounds, soft, nontender, no hepatosplenomegaly Musculoskeletal: Extremities: extremities normal to inspection; no cyanosis and no clubbing Skin: no rashes, warm and dry Neurologic: moves all extremities and awake; no focal motor deficits Psychiatric: A+Ox3, euthymic affect Lymphatic: no lymphedema Results & Data Results & Data Vital Signs (Past 12 Hours) Vital Signs Temp Pulse Pulse Resp BP Pulse Ox O2 Del Method 04/26/25 08:00 86 04/26/25 07:43 Room Air 04/26/25 03:11 36.6 C 72 19 159/90 H 94 BiPAP 04/26/25 02:40 72 18 94 04/26/25 00:32 61 32 H 95 04/25/25 23:36 36.6 C 87 20 155/88 H 94 Room Air FiO2 04/26/25 08:00 04/26/25 07:43 04/26/25 03:11 04/26/25 02:40 21 04/26/25 00:32 21 04/25/25 23:36 Laboratory Results 04/26/25 04/25/25 04/25/25 05:40 21:20 19:31 WBC RBC Hgb Hct MCV MCH MCHC RDW Std Deviation RDW Coeff of Valeria Plt Count MPV Immature Gran % (Auto) Neut % (Auto) Lymph % (Auto) [place] % (Auto) Eos % (Auto) Baso % (Auto) Neut # (Auto) Lymph # (Auto) [place] # (Auto) Eos # (Auto) Baso # (Auto) Immature Gran # (Auto) PT INR APTT PTT Ratio Sodium 138 Potassium 3.9 Chloride 101 Carbon Dioxide 30 Anion Gap 7 BUN 27 H Creatinine 0.96 Est Cr Clr Drug Dosing 137.5 eGFR 94.51 BUN/Creatinine Ratio 28.1 H Glucose 251 H POC Glucose 216 H Estimat Average Glucose 209 Hemoglobin A1c 8.9 H Calcium 9.2 Magnesium 2.0 Total Bilirubin AST ALT Alkaline Phosphatase Troponin I High Sens 72.9 H* 70.8 H* D B-Natriuretic Peptide Total Protein Albumin Globulin Albumin/Globulin Ratio Lipase TSH 1.556 Urine Color Urine Appearance Urine pH Ur Specific [place] Urine Protein Urine Glucose (UA) Urine Ketones Urine Blood Urine Nitrite Urine Bilirubin Urine Urobilinogen Ur Leukocyte Esterase Urine WBC (Auto) Urine RBC (Auto) U Hyaline Cast (Auto) U Epithel Cells (Auto) Urine Bacteria (Auto) Urine Comment SARS-CoV-2 (PCR) Influenza Type A (PCR) Influenza Type B (PCR) RSV (RT-PCR) 04/25/25 04/25/25 04/25/25 17:15 15:18 14:14 WBC RBC Hgb Hct MCV MCH MCHC RDW Std Deviation RDW Coeff of Valeria Plt Count MPV Immature Gran % (Auto) Neut % (Auto) Lymph % (Auto) [place] % (Auto) Eos % (Auto) Baso % (Auto) Neut # (Auto) Lymph # (Auto) [place] # (Auto) Eos # (Auto) Baso # (Auto) Immature Gran # (Auto) PT 11.0 INR 1.0 APTT 29 PTT Ratio 1.1 Sodium Potassium Chloride Carbon Dioxide Anion Gap BUN Creatinine Est Cr Clr Drug Dosing eGFR BUN/Creatinine Ratio Glucose POC Glucose Estimat Average Glucose Hemoglobin A1c Calcium Magnesium Total Bilirubin AST ALT Alkaline Phosphatase Troponin I High Sens 58.0 H* B-Natriuretic Peptide Total Protein Albumin Globulin Albumin/Globulin Ratio Lipase TSH Urine Color Yellow Urine Appearance Clear Urine pH 5.5 Ur Specific [place] 1.020 Urine Protein 2+ H Urine Glucose (UA) 1+ H Urine Ketones Negative Urine Blood Negative Urine Nitrite Negative Urine Bilirubin Negative Urine Urobilinogen Negative Ur Leukocyte Esterase Negative Urine WBC (Auto) 0-5 Urine RBC (Auto) 0-2 U Hyaline Cast (Auto) 0-2 U Epithel Cells (Auto) 0-2 Urine Bacteria (Auto) None Seen Urine Comment SARS-CoV-2 (PCR) Influenza Type A (PCR) Influenza Type B (PCR) RSV (RT-PCR) 04/25/25 13:38 WBC 5.99 RBC 5.81 Hgb 16.9 Hct 48.1 MCV 82.8 MCH 29.1 MCHC 35.1 RDW Std Deviation 40.7 RDW Coeff of Valeria 13.5 Plt Count 170 MPV 11.7 Immature Gran % (Auto) 0.3 Neut % (Auto) 60.1 Lymph % (Auto) 24.4 [place] % (Auto) 9.3 Eos % (Auto) 4.7 Baso % (Auto) 1.2 Neut # (Auto) 3.60 Lymph # (Auto) 1.46 [place] # (Auto) 0.56 Eos # (Auto) 0.28 Baso # (Auto) 0.07 Immature Gran # (Auto) 0.02 PT Cancelled INR Cancelled APTT Cancelled PTT Ratio Cancelled Sodium 137 Potassium 4.3 Chloride 103 Carbon Dioxide 26 Anion Gap 8 BUN 25 H Creatinine 0.92 Est Cr Clr Drug Dosing 145.1 eGFR 99.47 BUN/Creatinine Ratio 27.2 H Glucose 269 H POC Glucose Estimat Average Glucose Hemoglobin A1c Calcium 9.1 Magnesium 1.9 Total Bilirubin 0.9 AST 29 ALT 26 Alkaline Phosphatase 71 Troponin I High Sens 62.3 H* B-Natriuretic Peptide 120 H Total Protein 7.2 Albumin 4.3 Globulin 2.9 Albumin/Globulin Ratio 1.5 Lipase 14 TSH Urine Color Urine Appearance Urine pH Ur Specific [place] Urine Protein Urine Glucose (UA) Urine Ketones Urine Blood Urine Nitrite Urine Bilirubin Urine Urobilinogen Ur Leukocyte Esterase Urine WBC (Auto) Urine RBC (Auto) U Hyaline Cast (Auto) U Epithel Cells (Auto) Urine Bacteria (Auto) Urine Comment SARS-CoV-2 (PCR) NEGATIVE Influenza Type A (PCR) Negative Influenza Type B (PCR) Negative RSV (RT-PCR) Negative PG Care Time/CCT Total # of Minutes Spent Total Time Spent with Patient: Total time spent is greater than 50% in coordination of care (as documented) at patient's floor/unit and/or counseling patient: Coding Level of Care Code 07377 SUB INP/OBS CARE 235MIN Diagnoses Chronic diastolic congestive heart failure I50.32 Essential hypertension I10 Hypertension type: unspecified Type 2 diabetes mellitus with hyperglycemia, with long-term current use of insulin E11.65; Z79.4 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 meterman insulin use: with assisted use 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 complication status: with hyperglycemia (2) HTN (hypertension) Hypertension type: unspecified Qualified Code(s): I10 - Essential (primary) hypertension (3) Type 2 diabetes mellitus 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 meterman insulin use: with meterman use 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 complication status: with hyperglycemia Qualified Code(s): E11.65 - Type 2 diabetes mellitus with hyperglycemia; Z79.4 - meterman (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
[2025-04-26] MEDS: ALBUT/IPRATROP 3MG/0.5MG NEB 3 ML VIAL NEB SCH (08:55)
[2025-04-26] MEDS: FUROSEMIDE 40 MG/4 ML VIAL IV SCH (09:09)
--- NOTE | 2025-04-26 11:09 | XCELERA ---
[id number] [id number]
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
--- NOTE | 2025-04-26 14:17 | Electrocardiogram Report ---
Test Reason : Blood Pressure : */* mmHG Vent. Rate : 80 BPM Atrial Rate : 80 BPM P-R Int : 124 ms QRS Dur : 180 ms QT Int : 472 ms P-R-T Axes : 63 -88 104 degrees QTcB Int : 544 ms Atrial-sensed ventricular-paced rhythm likely blocked PACs Abnormal ECG When compared with ECG of 31-Mar-2025 09:31, Vent. rate has decreased by 5 bpm Confirmed by Lucio Millard ([id number]) on 04/26/2025 2:17:26 PM Referred By: REFERRED SELF Confirmed By: Lucio Millard
--- NOTE | 2025-04-26 15:15 | Communication Note ---
Date of Service: April 26, 2025 S: Called bedside by nursing patient had a brief episode of confusion recently, unsteady and very diaphoretic. Episode lasted just a couple minutes. Blood pressure was stable. Orthostatic vitals was unremarkable. EKG completed showed paced atrial rhythm. I reviewed telemetry that was unremarkable. Patient is back to his baseline. We discussed the possibility of a vagal episode in the setting of volume depletion. Will monitor, he will take a small amount of extra fluid orally, remain overnight for monitoring. Hai Trinh MD 04/26/25 [id number]
--- NOTE | 2025-04-26 17:55 | Electrocardiogram Report ---
Test Reason : Blood Pressure : */* mmHG Vent. Rate : 81 BPM Atrial Rate : 81 BPM P-R Int : 144 ms QRS Dur : 180 ms QT Int : 470 ms P-R-T Axes : 66 -86 101 degrees QTcB Int : 545 ms Poor data quality, interpretation may be adversely affected Atrial-sensed ventricular-paced rhythm blocked PACs Abnormal ECG When compared with ECG of 25-Apr-2025 13:31, No significant change was found Confirmed by Lucio Millard ([id number]) on 04/26/2025 5:55:35 PM Referred By: REFERRED SELF Confirmed By: Lucio Millard
[2025-04-26] MEDS: COUGH DROP (SUGAR FREE) LOZ 24 LOZ/1 BOX BUCCAL PRN (21:47)
[2025-04-27 06:20] LABS: Hematocrit (blood only) 43.7 % (42.0-52.0); Hemoglobin 15.2 g/dL (14.0-18.0); Immature Granulocytes # (auto) 0.03 K/uL (0.01-0.20); Immature Granulocytes % (auto) 0.6 %; Mean Corpuscular Hemoglobin 28.8 pg (25.0-34.0); Mean Corpuscular Volume 82.8 fL (80.0-100.0); Platelet Count 154 K/uL (130-400); RDW Standard Deviation 40.7 fL (36.4-46.3); Red Blood Count 5.28 M/uL (4.70-6.10); White Blood Count 5.29 K/ul (4.8-10.8)
[2025-04-27 06:49] LABS: Alanine Aminotransferase 22.0 U/L (7-52); Albumin Globulin Ratio 1.6 (0.9-2); Albumin Level 3.9 gm/dl (3.4-5.0); Alkaline Phosphatase 56.0 U/L (34-104); Anion Gap 7.0 (3-11); Bilirubin,Total 0.8 mg/dl (0.2-1.0); Blood Urea Nitrogen 30.0 mg/dl (6-23); Calcium 9.0 mg/dl (8.6-10.3); Carbon Dioxide 29.0 mmol/L (21-32); Chloride 100.0 mmol/L (98-107); Creatinine Clr Calc Pharmacy 119.1 ml/min; Globulin 2.5 gm/dl (2.5-4.0); Glucose 208.0 mg/dl (70-99(Fasting)); Magnesium 1.9 mg/dl (1.7-2.4); Potassium 3.9 mmol/L (3.5-5.1); Sodium 136.0 mmol/L (136-145); Total Protein 6.4 gm/dl (6.0-8.3)
[2025-04-27 07:14] VITALS: RESP 18
[2025-04-27 09:05] VITALS: PULSE 86; TEMP 98.2; O2SAT 92
--- NOTE | 2025-04-27 09:49 | Discharge Summary ---
Discharge Summary Date of Service April 27, 2025 Principal Dx & Hospital Course #1 = Principal Diagnosis (1) Chronic diastolic congestive heart failure: (2) HTN (hypertension): (3) Type 2 diabetes mellitus: Plan This patient is a 54-year-old male with a history of HCM s/p septal myectomy, BiV ICD, MVR, myocardial bridging of the mid LAD, HLD, HTN, chronic HFpEF, DM2, pulmonary nodules, obesity BMI 41.2, MEENU on CPAP, chronic lower back pain with lumbar radiculopathy, BPH, who presents to the ED with worsening shortness of breath, dyspnea on exertion, and chest tightness for 5 days. He is admitted for acute on chronic HFpEF and elevated troponin/myocardial demand ischemia. #Acute on chronic HFpEF/HCM s/p septal myectomy/BiV ICD/MVR/HLD-CHF exacerbation likely on the basis of excessive sodium use from eating out at restaurants, excessive drinking of fluids throughout the day. Also, he never picked up amlodipine after it was restarted and reports that his blood pressures at home have been quite elevated. He also is no longer on Jardiance-he reports someone told him to stop it at some point due to his kidney function being down. Elevated troponin stable on repeat check and likely myocardial demand ischemia in the setting of CHF. -Doing better after diuresis x 2 days, at baseline/dry weight -Restart lasix 20mg daily -Restart Jardiance 10mg daily -Check daily weight at home every morning -Follow-up with PCP in 1-2 weeks for recheck of BMP, detention medication mgmt, discuss daily weight and lasix dosing -Follow-up with cardiology in 2-4 weeks for recheck #Elevated troponin - Appreciate cardiolgy recs, not indicative of active ACS, no additional testing at this time #DM2 with hyperglycemia-BPs have been quite elevated at home he thinks from the stress of the heart failure. He is no longer on Jardiance but is on Ozempic. - BSG's AC and at bedtime - Continue home Lantus 25 units twice daily and give NovoLog supplemental insulin with meals and at bedtime - A1c 8.9%, at goal for the short term, close o/p follow-up - Diabetic diet #HTN -Restarted Amlodipine 5mg during hospital stay, f/u with PCP for [employer] medication mgmt #Pulmonary nodule/EMENU on CPAP-he actually no longer has a CPAP machine at home and is trying to get a new sleep study but having issues with insurance authorization - Give CPAP in the hospital at 11 cm H2O - Outpatient sleep study to qualify for new CPAP #Chronic lower back pain/lumbar radiculopathy-recently had injections for this which is helping - No longer takes baclofen that much but will use as needed - Is prescribed hydrocodone but has not taken it much at all-use as needed #BPH/urinary incontinence-patient has run out of tamsulosin at home and felt that it really helped with his urinary frequency symptoms. - Restart tamsulosin 0.4 mg p.o. at bedtime and he will need a 30-day supply of this on discharge #Obesity BMI 41.2-patient has been losing weight since being on Ozempic - Resume Ozempic on discharge - Continue to encourage weight loss, close o/p followup as above. DVT prophylaxis-Lovenox SQ, SCDs Disposition-continue PCU pending cardiology consult, tele if needed, currently day to day depending on diuresis and response. Admission HPI Per Admitting Provider This patient is a 54-year-old male with a history of HCM s/p septal myectomy, BiV ICD, MVR, myocardial bridging of the mid LAD, HLD, HTN, chronic HFpEF, DM2, pulmonary nodules, obesity BMI 41.2, MEENU on CPAP, chronic lower back pain with lumbar radiculopathy, BPH, who presents to the ED with worsening shortness of breath, dyspnea on exertion, and chest tightness for the last 5 days. He has had a little bit of a cough and feels congested in his chest just like when he has had "fluid around my heart" in the past. Also with orthopnea. Denies abdominal distention, weight gain, or leg swelling. 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 He tries to limit sodium in his diet. He does drink a total of about 64 ounces of water/soda/beer each day with 1 beer. Denies fever, no vomiting or diarrhea. He has also had some dizziness and elevated blood sugars as high as 500 he thinks from the stress of what ever acute issue is going on. In the ED, he was found to have some wheezing, troponin was mildly elevated, BNP was elevated, CXR did not show any florid CHF, and laboratory values were otherwise fairly unremarkable. He was not hypoxic and initially was hypertensive but BPs improved on their own. He was given a nebulizer treatment which he thinks helped a little bit. He was then given IV Lasix. He will be admitted for acute on chronic HFpEF and elevated troponin. Discharge Exam Constitutional: WD/WN, vitals as above + obese Eyes: PERRL, conjunctivae normal, anicteric sclerae Neck: trachea midline, no thyromegaly Respiratory: normal respiratory effort; CTAB Cardiovascular: RRR, no murmur, no edema Chest (Breasts): Chest: normal inspection of chest Gastrointestinal (Abdomen): normal bowel sounds, soft, nontender, no hepatosplenomegaly Musculoskeletal: Extremities: extremities normal to inspection; no cyanosis and no clubbing Skin: no rashes, warm and dry Neurologic: moves all extremities and awake; no focal motor deficits Psychiatric: A+Ox3, euthymic affect Lymphatic: no lymphedema Discharge Plan Discharge Items Patient Disposition: Home - Self-Care Reason For Visit: CHF Discharge Diagnosis: Mild volume overload, diastolic heart failure Condition on Discharge: Fair Health Concerns: - Restart Jardiance 10 mg daily - Start Lasix 20 mg first thing in the morning daily - Continue your other home medications as prescribed, check a daily weight first thing in the morning every day. Start your as needed Lasix at home if weight goes up by more than 3 pounds over the course of 2 or 3 days - Follow-up with PCP within 2 weeks and cardiology early in the year for ongoing care and medication management Activity: Resume your previous activity Non-emergency contact: Primary Care Provider and Breaker Unit Assembler Call non-emergency contact if: you have any medication questions and your symptoms worsen Follow-up/Referrals: Jose Hines, [Primary Care Provider] - Diet: Carb Consistent or DM2 and Heart Healthy Addtl Attending Provider Instructions: Recheck BMP, CBC and A1c as needed Pending Studies at Discharge: No Stand-Alone Forms: My 60mo, Smoking Cessation Medications and DC Order Prescriptions: New amlodipine 5 mg Tablet 5 mg PO QAM Qty: 30 0RF Jardiance 10 mg tablet 10 mg PO DAILY Qty: 30 0RF Continued cetirizine 10 mg tablet 10 mg PO DAILY PRN (Reason: allergies) hydrocodone-acetaminophen 5-325 mg tablet 1 tab PO TID PRN (Reason: Pain) Apidra SoloStar U-100 Insulin 100 unit/mL insulin pen 12 - 16 unit subcut ACHS Qty: 15 0RF Rx Instructions: TIDM and HS up to 64 units per day (DME) FreeStyle Rodrick 3 Sensor Device See Rx Instructions .Route Qty: 1 1RF Rx Instructions: for 2 weeks each Ozempic 2 mg/dose (8 mg/3 mL) Pen Injector 2 mg SUBCUT WK Patient Comments: sundays losartan 100 mg tablet 100 mg PO QAM baclofen 10 mg tablet 10 mg PO TID PRN (Reason: muscle spasms) insulin glargine [Lantus Solostar U-100 Insulin] 100 unit/mL (3 mL) insulin pen 25 unit SUBCUT BID furosemide 20 mg tablet 20 mg PO DAILY PRN (Reason: swelling) Qty: 30 0RF Discharge Orders: Discharge Order (Routine); Ordered 04/27/25 Ordered By: Hai Nassar/Other Patient Handouts: Heart Failure: Tracking Your Weight, Managing Type 2 Diabetes, Heart Failure: Know Your Baselines Admission Data Admit Date/Time: 04/25/25 18:05 Attending Provider: Hai Trinh Admit Provider: Marilynn Briseno Primary Care Provider: Jose Hines Other Providers: Marilynn Briseno; Lucio Millard; Elizabeth Carlos Hospital Stay Data Consultations 04/25/25 16:29 ED Decision to Admit Stat 04/25/25 20:32 Consult Cardiology Routine [facility] Program Referral Routine Pending Results Patient Have Any Pending Studies at Discharge: No Discharge Instructions Given to Patient (Per Discharging Provider) Recheck BMP, CBC and A1c as needed Total Time Total Time Spent Total Time Spent (In Minutes): 40 minutes spent at the bedside discussing results and modifications to care plan with patient. Arrangements for prescription on discharge. Reviewing new medications, discharge planning and follow-up coordination Coding Level of Care Code 29164 INP/OBS DISCH >30 MIN Diagnoses Chronic diastolic congestive heart failure I50.32 Essential hypertension I10 Hypertension type: unspecified Type 2 diabetes mellitus with hyperglycemia, with long-term current use of insulin E11.65; Z79.4 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 [employer] insulin use: with detention use 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 complication status: with hyperglycemia
[2025-04-27 13:03] VITALS: BP 104/72
== END 2025-04-27 13:27 | disposition home or self-care (01) | DRG 291 ==
LOC: SUATTDRO → ED 13:21 → 4W 18:05 → SUATTDRO 18:05 → 4W 19:52